=== PATIENT | female | born 1935 | race Caucasian/White ===

== ENCOUNTER → 2016-08-27 | Outpatient (CLI) | payer MEDICARE ==
[2016-08-27 09:45] LABS: CH 31.6; CHCM 32.3; HCT 42.3 % (34.0-46.0); HDW 2.19; HGB 13.6 gm/dL (11.4-16.0); MCH 31.6 pg (25.0-35.0); MCHC 32.2 g/dL (31.0-37.0); MCV 98.2 fL (80.0-100.0); Mean Platelet Volume 6.9; RDW 13.7 % (11.5-15.5); WBC 8.7 k/uL (3.8-10.6)
--- NOTE | 2016-08-27 10:07 | XR ---
EXAMINATION TYPE: XR chest 2V DATE OF EXAM: 08/27/2016 9:27 AM COMPARISON: 09/25/2015 TECHNIQUE: PA and lateral views submitted. HISTORY: Annual physical FINDINGS: The lungs are clear and there is no pneumothorax, pleural effusion, or focal pneumonia. Atheroscler otic change aorta. Arthropathy of the AC joints. Degenerative change of the spine. IMPRESSION: 1. No acute process.
[2016-08-27 10:39] LABS: Appearance,Urine Clear (Clear); Bilirubin,Urine Negative (Negative); Glucose,Urine (UA) Negative (Negative); Ketones,Urine Negative (Negative); Leukocyte Esterase,Urine Large (Negative); Mucus,Urine Rare /hpf; Nitrite,Urine Negative (Negative); PH, Urine 7.5 (5.0-8.0); Particle Count 3577; Protein,Urine Negative (Negative); RBC,Urine <1 /hpf (0-5); Specific Gravity,Urine 1.007 (1.001-1.035); Squamous Epithelial Cell,Urine 2 /hpf (0-4); Transitional Epi Cells,Urine 1 /hpf (0-1); UA Billing (MACRO vs. MICRO) MICRO; Urobilinogen,Urine <2.0 mg/dL (<2.0); WBC,Urine 4 /hpf (0-5)
[2016-08-27 12:00] LABS: ALT 34 U/L (9-52); AST 25 U/L (14-36); Alkaline Phosphatase 54 U/L (38-126); Anion Gap 8 mmol/L; Blood Urea Nitrogen 15 mg/dL (7-17); Calcium 9.9 mg/dL (8.4-10.2); Carbon Dioxide 28 mmol/L (22-30); Chloride 107 mmol/L (98-107); Cholesterol 170 mg/dL (<200); Glucose 93 mg/dL (74-99); HDL Cholesterol 81 mg/dL (40-60); Non-African American GFR(MDRD) >60 (>60 ml/min/1.73 sqM); Potassium 4.4 mmol/L (3.5-5.1); Sodium 143 mmol/L (137-145); Total Bilirubin 0.6 mg/dL (0.2-1.3); Total Protein 6.5 g/dL (6.3-8.2); Triglycerides 98 mg/dL (<150)
== END | disposition home or self-care (01) ==
LOC: LABWHC1 08:48
PROVIDERS: ATTEND Internal Medicine
DX: Z00.00 Encounter for general adult medical examination without abnormal findings (principal); C50.919 Malignant neoplasm of unspecified site of unspecified female breast; I11.9 Hypertensive heart disease without heart failure; K21.0 Gastro-esophageal reflux disease with esophagitis; N39.0 Urinary tract infection, site not specified; E78.2 Mixed hyperlipidemia
CPT/HCPCS: 36415; 71020; 80053; 80061; 81001; 82272; 84439; 84443; 85027

== ENCOUNTER → 2016-12-09 | Outpatient (CLI) | payer MEDICARE ==
--- NOTE | 2016-12-09 10:13 | MM ---
Reason for exam: additional evaluation requested from prior study. Last mammogram was performed 1 year ago. History: Patient is postmenopausal and has history of breast cancer at age 51. Family history of breast cancer in mother at age 70 and breast cancer in maternal grandmother. Benign stereotactic core biopsy of the right breast, October 31, 2001. Core biopsy of the right breast, 1987. Excisional biopsy of the left breast, 1987. Lumpectomy of the right breast. Radiation therapy of the right breast. Took estrogen for 2 years beginning at age 50. Physical Findings: Nurse did not find any significant physical abnormalities on exam. MG 3D Diag Mammo W/Cad JANNY Bilateral CC and MLO view(s) were taken. Prior study comparison: December 09, 2015, bilateral MG 3d diag mammo w/cad JANNY. November 27, 2014, bilateral MG diagnostic mammo w CAD JANNY. November 07, 2013, bilateral MG screening mammo w CAD. There are scattered fibroglandular densities. Stable post surgical and post therapy change in the right breast. Benign oil cyst and fat necrosis calcifications show slight gradual increase. These results were verbally communicated with the patient and result sheet given to the patient on 12/09/16. ASSESSMENT: Benign, BI-RAD 2 RECOMMENDATION: Routine screening mammogram of both breasts in 1 year.
== END | disposition home or self-care (01) ==
LOC: RADMAMWWP 09:01
PROVIDERS: ATTEND Internal Medicine
DX: Z85.3 Personal history of malignant neoplasm of breast (principal)
CPT/HCPCS: G0204; G0279

== ENCOUNTER → 2017-10-14 | Outpatient (CLI) | payer MEDICARE ==
[2017-10-14 08:49] LABS: HCT 41.2 % (34.0-46.0); HGB 13.3 gm/dL (11.4-16.0); MCH 31.1 pg (25.0-35.0); MCHC 32.2 g/dL (31.0-37.0); MCV 96.6 fL (80.0-100.0); Mean Platelet Volume 6.9; Platelet Count 210 k/uL (150-450); RBC 4.26 m/uL (3.80-5.40); WBC 9.1 k/uL (3.8-10.6)
[2017-10-14 08:51] LABS: Appearance,Urine Clear (Clear); Bilirubin,Urine Negative (Negative); Blood,Urine Negative (Negative); Color,Urine Light Yellow; Glucose,Urine (UA) Negative (Negative); Ketones,Urine Negative (Negative); Leukocyte Esterase,Urine Small (Negative); Mucus,Urine Rare /hpf; Nitrite,Urine Negative (Negative); PH, Urine 7.5 (5.0-8.0); Protein,Urine Negative (Negative); RBC,Urine <1 /hpf (0-5); Specific Gravity,Urine 1.009 (1.001-1.035); Squamous Epithelial Cell,Urine 1 /hpf (0-4); Urobilinogen,Urine <2.0 mg/dL (<2.0); WBC,Urine 3 /hpf (0-5)
[2017-10-14 09:00] LABS: ALT 31 U/L (9-52); AST 22 U/L (14-36); Albumin 3.7 g/dL (3.5-5.0); Alkaline Phosphatase 61 U/L (38-126); Anion Gap 7 mmol/L; Blood Urea Nitrogen 15 mg/dL (7-17); Calcium 9.6 mg/dL (8.4-10.2); Carbon Dioxide 27 mmol/L (22-30); Chloride 107 mmol/L (98-107); Cholesterol 177 mg/dL (<200); Glucose 93 mg/dL (74-99); HDL Cholesterol 74 mg/dL (40-60); LDL Cholesterol,Calculated 75 mg/dL (0-99); Potassium 4.8 mmol/L (3.5-5.1); Sodium 141 mmol/L (137-145); Total Bilirubin 0.5 mg/dL (0.2-1.3); Total Protein 6.1 g/dL (6.3-8.2); Triglycerides 138 mg/dL (<150)
--- NOTE | 2017-10-14 09:44 | XR ---
EXAMINATION TYPE: XR chest 2V DATE OF EXAM: 10/14/2017 COMPARISON: Prior chest 08/27/2016 HISTORY: Annual physical, I 11.9, E03.9, E78.2, K21.0, R 35.0 TECHNIQUE: Frontal and lateral views of the chest are obtained. FINDINGS: There is no focal air space opacity, pleural effusion, or pneumothorax seen. The cardiac silhouette size is within normal limits. The osseous structures are intact. There is a spinal curva ture. Prominent lung volume could be indicative of COPD. IMPRESSION: No acute cardiopulmonary process.
== END | disposition home or self-care (01) ==
LOC: LABWHC1 08:10
PROVIDERS: ATTEND Internal Medicine
DX: I11.9 Hypertensive heart disease without heart failure (principal); E03.9 Hypothyroidism, unspecified; E78.2 Mixed hyperlipidemia; K21.0 Gastro-esophageal reflux disease with esophagitis; R35.0 Frequency of micturition
CPT/HCPCS: 36415; 71046; 80053; 80061; 81001; 84439; 84443; 85027

== ENCOUNTER → 2018-04-11 | Outpatient (CLI) | payer MEDICARE ==
--- NOTE | 2018-04-12 10:32 | MM ---
Reason for exam: screening (asymptomatic). Last mammogram was performed 1 year and 4 months ago. History: Patient is postmenopausal and has history of breast cancer at age 51. Family history of breast cancer in mother at age 70 and breast cancer in maternal grandmother. Benign stereotactic core biopsy of the right breast, October 31, 2001. Core biopsy of the right breast, 1987. Excisional biopsy of the left breast, 1987. Lumpectomy of the right breast. Radiation therapy of the right breast. Took estrogen for 2 years beginning at age 50. Physical Findings: A clinical breast exam by your physician is recommended on an annual basis and results should be correlated with mammographic findings. MG 3D Screening Mammo W/Cad Bilateral CC and MLO view(s) were taken. Prior study comparison: December 09, 2016, bilateral MG 3d diag mammo w/cad JANNY. December 09, 2015, bilateral MG 3d diag mammo w/cad JANNY. The breast tissue is heterogeneously dense. This may lower the sensitivity of mammography. Finding #1: Stable architectural distortion in the upper outer quadrant, anterior position of the right breast. Finding #2: There are typically benign vascular, dystrophic, round calcifications in both breasts. There is no discrete abnormality. ASSESSMENT: Benign, BI-RAD 2 RECOMMENDATION: Routine screening mammogram of both breasts in 1 year.
== END ==
LOC: RADMAMWWP 16:31
PROVIDERS: ATTEND Obstetrics & Gynecology
DX: Z12.31 Encounter for screening mammogram for malignant neoplasm of breast (principal); Z85.3 Personal history of malignant neoplasm of breast; Z80.3 Family history of malignant neoplasm of breast
CPT/HCPCS: 77063; 77067

== ENCOUNTER → 2018-10-17 | Outpatient (CLI) | payer MEDICARE ==
[2018-10-17 09:20] LABS: HGB 13.3 gm/dL (11.4-16.0); MCH 30.9 pg (25.0-35.0); MCHC 32.5 g/dL (31.0-37.0); MCV 95.1 fL (80.0-100.0); Mean Platelet Volume 7.4; Platelet Count 252 k/uL (150-450); RBC 4.32 m/uL (3.80-5.40); WBC 10.3 k/uL (3.8-10.6)
[2018-10-17 09:25] LABS: Appearance,Urine Clear (Clear); Bilirubin,Urine Negative (Negative); Blood,Urine Negative (Negative); Color,Urine Light Yellow; Glucose,Urine (UA) Negative (Negative); Ketones,Urine Negative (Negative); Leukocyte Esterase,Urine Negative (Negative); Nitrite,Urine Negative (Negative); Protein,Urine Negative (Negative); Specific Gravity,Urine 1.004 (1.001-1.035); Urobilinogen,Urine <2.0 mg/dL (<2.0)
--- NOTE | 2018-10-17 09:44 | XR ---
EXAMINATION TYPE: XR chest 2V DATE OF EXAM: 10/17/2018 COMPARISON: Prior chest x-ray 10/14/2017 HISTORY: Wellness check, annual physical exam TECHNIQUE: Frontal and lateral views of the chest are obtained. FINDINGS: There is no focal air space opacity, pleural effusion, or pneumothorax seen. The cardiac silhouette size is within normal limits. Right hemidiaphragm remains elevated. Aorta is dense. Some p robable basilar scarring or subsegmental atelectatic changes are noted. The osseous structures are i ntact. IMPRESSION: Stable exam. Probable basilar scarring.
[2018-10-17 16:38] LABS: African American GFR (CKD) 98.4 (60.0-200.0); Albumin/Globulin Ratio 2.22 (1.60-3.17); Anion Gap 7.5 mmol/L (4.00-12.00); Calcium 9.6 mg/dL (8.7-10.3); Carbon Dioxide 25.5 mmol/L (21.6-31.8); Globulin 1.8 g/dL (1.6-3.3); LDL Cholesterol,Calculated 83.6 mg/dL (0.0-131.0); Potassium 4.3 mmol/L (3.5-5.5); Total Bilirubin 0.6 mg/dL (0.2-1.2); Total Protein 5.8 g/dL (6.2-8.2); VLDL Calculation 26.4 mg/dL (5.00-40.00)
[2018-10-17 16:46] LABS: T4, Free (Free Thyroxine) 1.4 ng/dL (0.80-1.80)
== END | disposition home or self-care (01) ==
LOC: LABWHC1 08:17
PROVIDERS: ATTEND Internal Medicine
DX: Z00.00 Encounter for general adult medical examination without abnormal findings (principal); I11.9 Hypertensive heart disease without heart failure; E78.2 Mixed hyperlipidemia; E03.9 Hypothyroidism, unspecified; K21.0 Gastro-esophageal reflux disease with esophagitis; R35.0 Frequency of micturition
CPT/HCPCS: 36415; 71046; 80053; 80061; 81003; 82272; 84439; 84443; 85027

== ENCOUNTER → 2020-10-16 | Outpatient (CLI) | payer MEDICARE ==
--- NOTE | 2020-10-18 10:44 | MM ---
Reason for exam: screening (asymptomatic). Last mammogram was performed 1 year and 6 months ago. History: Patient is postmenopausal and has history of breast cancer at age 51. Family history of breast cancer in mother at age 70 and breast cancer in maternal grandmother. Benign stereotactic core biopsy of the right breast, October 31, 2001. Core biopsy of the right breast, 1987. Excisional biopsy of the left breast, 1987. Lumpectomy of the right breast. Radiation therapy of the right breast. Took estrogen for 2 years beginning at age 50. Physical Findings: A clinical breast exam by your physician is recommended on an annual basis and results should be correlated with mammographic findings. MG 3D Screening Mammo W/Cad Bilateral CC and MLO view(s) were taken. Prior study comparison: April 14, 2019, bilateral MG 3d screening mammo w/cad. April 11, 2018, bilateral MG 3d screening mammo w/cad. There are scattered fibroglandular densities. No significant changes when compared with prior studies. ASSESSMENT: Benign, BI-RAD 2 RECOMMENDATION: Routine screening mammogram of both breasts in 1 year.
== END | disposition home or self-care (01) ==
LOC: RADMAMWWP 13:49
PROVIDERS: ATTEND Internal Medicine
DX: Z12.31 Encounter for screening mammogram for malignant neoplasm of breast (principal); Z78.0 Asymptomatic menopausal state; Z80.3 Family history of malignant neoplasm of breast; Z85.3 Personal history of malignant neoplasm of breast
CPT/HCPCS: 77063; 77067

== ENCOUNTER → 2021-10-17 | Outpatient (CLI) | payer MEDICARE ==
--- NOTE | 2021-10-20 11:39 | MM ---
Reason for Exam: Screening (asymptomatic). Last screening mammogram was performed 12 month(s) ago. Patient History: Menarche at age 13. First Full-Term at age 28. Postmenopausal. Breast cancer, age 51. Previous chest radiation therapy at age 51. Estrogen for 2 years from age 50 until age 52. Lumpectomy on the Right side. 1987, Core Biopsy on the Right side. 1987, Excisional Biopsy on the Left side. 10/31/2001, Benign Stereotactic Core Biopsy on the right side. Radiation Therapy, right. Maternal grandmother had breast cancer. Mother had breast cancer, age 70. Prior Study Comparison: 04/11/2018 Bilateral Screening Mammogram, [facility]. 04/14/2019 Bilateral Screening Mammogram, [facility]. 10/16/2020 Bilateral Screening Mammogram, [facility]. Tissue Density: The breast tissue is heterogeneously dense. This may lower the sensitivity of mammography. Findings: Analyzed By CAD. There is no suspicious group of microcalcifications or new suspicious mass in either breast. Stable benign calcifications seen bilaterally. Overall Assessment: Benign, BI-RAD 2 Management: Screening Mammogram of both breasts in 1 year. A clinical breast exam by your physician is recommended on an annual basis and results should be correlated with mammographic findings. Electronically signed and approved by: Charly Singh M.D. Radiologis
== END | disposition home or self-care (01) ==
LOC: RADMAMWWP 14:38
PROVIDERS: ATTEND Obstetrics & Gynecology
DX: Z12.31 Encounter for screening mammogram for malignant neoplasm of breast (principal); Z78.0 Asymptomatic menopausal state; Z80.3 Family history of malignant neoplasm of breast
CPT/HCPCS: 77063; 77067

== ENCOUNTER 2022-05-19 09:05 | Emergency (ER) | payer MEDICARE ==
[2022-05-19] MEDS ORDERED: SODIUM CHLORIDE 0.9% 1,000 ML IV STA (09:19)
[2022-05-19] MEDS ORDERED: ONDANSETRON 4 MG/2 ML VIAL IVP STA (09:19)
[2022-05-19 09:45] LABS: Basophils # (A) 0.1 k/uL (0-0.2); Basophils % (A) 1 %; Eosinophils # (A) 0.1 k/uL (0-0.7); Eosinophils % (A) 1 %; HCT 40.3 % (34.0-46.0); HGB 13.3 gm/dL (11.4-16.0); Lymphocytes # (A) 4.1 k/uL (1.0-4.8); Lymphocytes % (A) 34 %; MCH 31.4 pg (25.0-35.0); MCV 95.2 fL (80.0-100.0); Mean Platelet Volume 8.3; Monocytes # (A) 0.5 k/uL (0-1.0); Monocytes % (A) 4 %; Neutrophils % (A) 58 %; Platelet Count 236 k/uL (150-450); RBC 4.23 m/uL (3.80-5.40); RDW 13.5 % (11.5-15.5); WBC 12.1 k/uL (3.8-10.6)
--- NOTE | 2022-05-19 09:48 | ED ---
Nausea/Vomiting/Diarrhea HPI - General Chief complaint: Nausea/Vomiting/Diarrhea Stated complaint: poss dehydration Time Seen by Provider: 05/19/22 09:18 Source: patient, RN notes reviewed Mode of arrival: ambulatory Limitations: no limitations - History of Present Illness Initial comments: This is an 87-year-old female who presents to the emergency department for nausea and vomiting. She was given a prescription for Macrobid yesterday for a UTI. She took 2 doses of this, and subsequently started to develop nausea and diarrhea. Denies any associated vomiting. She is unsure if this is related to the antibiotic, as she has never taken it before. She does note that she is taking Keflex without any adverse reactions. She's had diarrhea 4-5 times at this point. Denies any blood in her stool. She did purchase Imodium, however she has not started taking it yet. Additionally, 2 weeks ago her vest baster started her on losartan, amiodarone, and Eliquis for atrial fibrillation. She has not had any palpitations or chest pain and she did not have any palpitations or chest pain when she was diagnosed. She called her vest baster regarding her symptoms, who advised that she was likely dehydrated and should go to the emergency department for IV fluids. She has no associated abdominal pain. Denies any fevers, chills, sore throat, cough, dyspnea, chest pain, palpitations, abdominal pain, vomiting, back pain, or headaches. MD complaint: nausea, diarrhea Associated Abdominal Pain: No - Related Data Home Medications Medication Instructions Recorded Confirmed Acetaminophen [Tylenol Arthritis] 650 mg PO BID 05/19/22 05/19/22 Amiodarone HCl [Pacerone] 200 mg PO BID 05/19/22 05/19/22 Apixaban [Eliquis] 5 mg PO BID 05/19/22 05/19/22 Atorvastatin [Lipitor] 20 mg PO DAILY 05/19/22 05/19/22 Calcium Carbonate [Calcium] 600 mg PO HS 05/19/22 05/19/22 Cholecalciferol [Vitamin D3 (25 50 mcg PO DAILY 05/19/22 05/19/22 Mcg = 1000 Iu)] Cyanocobalamin (Vitamin B-12) 1,000 mcg PO Q7D 05/19/22 05/19/22 [Vitamin B-12] Levothyroxine Sodium [Synthroid] 100 mcg PO DAILY 05/19/22 05/19/22 Losartan/Hydrochlorothiazide 1 tab PO DAILY 05/19/22 05/19/22 [Losartan-Hctz 50-12.5 mg Tab] Meloxicam [Mobic] 15 mg PO DAILY 05/19/22 05/19/22 Metoprolol Tartrate [Lopressor] 50 mg PO TID 05/19/22 05/19/22 Mirabegron [Myrbetriq] 25 mg PO DAILY 05/19/22 05/19/22 Multivit-Min/FA/Lycopen/Lutein 1 tab PO HS 05/19/22 05/19/22 [Centrum Silver Tablet] Nitrofurantoin Monohyd/M-Cryst 100 mg PO Q12HR 05/19/22 05/19/22 [Macrobid] Omeprazole [PriLOSEC] 20 mg PO HS 05/19/22 05/19/22 Vitamin B Complex 1 cap PO Q7D 05/19/22 05/19/22 Previous Rx's Medication Instructions Recorded Cephalexin [Keflex] 500 mg PO Q12HR 5 Days #10 cap 05/19/22 Allergies Allergy/AdvReac Type Severity Reaction Status Date / Time No Known Allergies Allergy Verified 05/19/22 11:12 Review of Systems ROS Statement: Those systems with pertinent positive or pertinent negative responses have been documented in the HPI. ROS Other: All systems not noted in ROS Statement are negative. Past Medical History Past Medical History: Atrial Fibrillation, Cancer Additional Past Medical History / Comment(s): breast CA 1988 History of Any Multi-Drug Resistant Organisms: ESBL Date of last positivie culture/infection: 05/04/19-ESBL E.coli MDRO Source:: Urine Past Surgical History: Orthopedic Surgery Additional Past Surgical History / Comment(s): lumpectomy. Past Psychological History: No Psychological Hx Reported Smoking Status: Never smoker Past Alcohol Use History: None Reported Past Drug Use History: None Reported General Exam Limitations: no limitations General appearance: alert, in no apparent distress Head exam: Present: atraumatic, normocephalic, normal inspection Respiratory exam: Present: normal lung sounds bilaterally. Absent: respiratory distress, wheezes, rales, rhonchi, stridor Cardiovascular Exam: Present: regular rate, irregular rhythm GI/Abdominal exam: Present: soft, normal bowel sounds. Absent: distended, tenderness, guarding, rebound, rigid Neurological exam: Present: alert, oriented X3, CN II-XII intact Psychiatric exam: Present: normal affect, normal mood Skin exam: Present: warm, dry, intact, normal color. Absent: rash Course Vital Signs 05/19/22 05/19/22 05/19/22 09:10 09:25 10:16 Temperature 98 F Pulse Rate 117 H 85 Respiratory 18 20 Rate Blood Pressure 120/70 136/87 116/90 O2 Sat by Pulse 96 106 H 95 Oximetry 05/19/22 12:00 Temperature Pulse Rate 101 H Respiratory 20 Rate Blood Pressure 115/69 O2 Sat by Pulse 96 Oximetry Medical Decision Making - Medical Decision Making This is an 87 year old female who presents to the emergency department for nausea and diarrhea. Was pt. sent in by a medical professional or institution? @ -No Did you speak to anyone other than the patient for history? @ -None Did you review nursing and triage notes? @ -Agree, accurate with regards to the patient's symptoms. Were old charts reviewed? @ -No Differential Diagnosis? @ Differential Diagnosis Nausea and diarrhea: -Dehydration, COVID, Influenza, gastroenteritis, nausea, foodborne illness, crohn's disease, ulcerative colitis, irritable bowel syndrome, this is not meant to be an all-inclusive list. EKG interpreted by me (3pts min.)? @ -Atrial fibrillation with RVR. Ventricular rate 107 bpm, QRS duration 98 ms, QTC 400 ms. What testing was considered but not performed? (CT, X-rays, U/S, labs)? Why? @ -None What meds were considered but not given? Why? @ -None Did you discuss the management of the patient with other professionals? @ -No Did you reconcile home meds? @ -No Was smoking cessation discussed for >3mins.? @ -No Was critical care preformed (if so, how long)? @ -No Were there social determinants of health that impacted care today? How? (Homelessness, low income, unemployed, alcoholism, drug addiction, transportation, low edu. Level, literacy, decrease access to med. care, correction, r ehab)? @ -No Was there de-escalation of care discussed even if they declined? (Discuss DNR or withdrawal of care, Hospice)? @ -No What co-morbidities impacted this encounter? (DM, HTN, Smoking, COPD, CAD, Cancer, CVA, Hep., AIDS, mental health diagnosis, sleep apnea, morbid obesity)? @ -Atrial fibrillation Was patient admitted / discharged? @ -Discharged. Lab work reveals mild leukocytosis and was otherwise nonactionable. Patient negative for Covid, influenza, and RSV. Patient is still positive for a urinary tract infection. She was given 1 g of ceftriaxone through her IV. She was given a liter bolus of IV fluids for rehydration and Zofran for nausea, which she states improved her symptoms. She was also given a dose of Imodium. States that she has Imodium at home and will continue to take it if needed. Dosing instructions for this reviewed. Rx for Keflex provided for the residual UTI. Advised she start this tomorrow due to her getting a dose of ceftriaxone today. Starter pack for Zofran provided as well. Advised she slowly advance her diet as tolerated and remain well-hydrated. Undiagnosed new problem with uncertain prognosis? @ -None Drug Therapy requiring intensive monitoring for toxicity (Heparin, Nitro, Insulin, Cardizem)? @ -None Were any procedures done? @ -None Diagnosis/symptom? @ -UTI Acute, or Chronic, or Acute on Chronic? @ -Acute Uncomplicated (without systemic symptoms) or Complicated (systemic symptoms)? @ -Uncomplicated Side effects of treatment? @ -None Exacerbation, Progression, or Severe Exacerbation] @ -Not applicable Poses a threat to life or bodily function? @ -No Diagnosis/symptom? @ -Nausea Acute, or Chronic, or Acute on Chronic? @ -Acute Uncomplicated (without systemic symptoms) or Complicated (systemic symptoms)? @ -Uncomplicated Side effects of treatment? @ -None Exacerbation, Progression, or Severe Exacerbation] @ -No Poses a threat to life or bodily function? @ -No Diagnosis/symptom? @ -Diarrhea Acute, or Chronic, or Acute on Chronic? @ -Acute Uncomplicated (without systemic symptoms) or Complicated (systemic symptoms)? @ -Uncomplicated Side effects of treatment? @ -None Exacerbation, Progression, or Severe Exacerbation] @ -No Poses a threat to life or bodily function? @ -If she becomes dehydrated it can become a severe issue, however this has seemed to improve at this point and she will plan on taking Imodium for treatment. Return precautions reviewed in depth, the patient is instructed to return to the emergency department with any new, worsening, or concerning symptoms. Patient verbalized understanding. This case was discussed in detail with the attending ED physician, Dr. Andrew. Presentation, findings, and treatment plan discussed in detail as well. - Lab Data Result diagrams: 05/19/22 09:22 05/19/22 09:22 Lab Results 05/19/22 05/19/22 05/19/22 Range/Units 09:22 09:22 09:22 WBC 12.1 H (3.8-10.6) k/uL RBC 4.23 (3.80-5.40) m/uL Hgb 13.3 (11.4-16.0) gm/dL Hct 40.3 (34.0-46.0) % MCV 95.2 (80.0-100.0) fL MCH 31.4 (25.0-35.0) pg MCHC 33.0 (31.0-37.0) g/dL RDW 13.5 (11.5-15.5) % Plt Count 236 (150-450) k/uL MPV 8.3 Neutrophils % 58 % Lymphocytes % 34 % Monocytes % 4 % Eosinophils % 1 % Basophils % 1 % Neutrophils # 7.0 (1.3-7.7) k/uL Lymphocytes # 4.1 (1.0-4.8) k/uL Monocytes # 0.5 (0-1.0) k/uL Eosinophils # 0.1 (0-0.7) k/uL Basophils # 0.1 (0-0.2) k/uL Sodium 133 L (137-145) mmol/L Potassium 4.4 (3.5-5.1) mmol/L Chloride 103 (98-107) mmol/L Carbon Dioxide 27 (22-30) mmol/L Anion Gap 3 mmol/L BUN 16 (7-17) mg/dL Creatinine 0.68 (0.52-1.04) mg/dL Est GFR (CKD-EPI)AfAm >90 (>60 ml/min/1.73 sqM) Est GFR (CKD-EPI)NonAf 79 (>60 ml/min/1.73 sqM) Glucose 139 H (74-99) mg/dL Calcium 9.0 (8.4-10.2) mg/dL Total Bilirubin 0.8 (0.2-1.3) mg/dL AST 67 H (14-36) U/L ALT 79 H (4-34) U/L Alkaline Phosphatase 98 (38-126) U/L Troponin I (0.000-0.034) ng/mL Total Protein 6.3 (6.3-8.2) g/dL Albumin 3.8 (3.5-5.0) g/dL Amylase 45 (30-110) U/L Lipase 86 (23-300) U/L Urine Color Yellow Urine Appearance Clear (Clear) Urine pH 6.5 (5.0-8.0) Ur Specific Taylor 1.010 (1.001-1.035) Urine Protein Negative (Negative) Urine Glucose (UA) Negative (Negative) Urine Ketones Negative (Negative) Urine Blood Negative (Negative) Urine Nitrite Negative (Negative) Urine Bilirubin Negative (Negative) Urine Urobilinogen <2.0 (<2.0) mg/dL Ur Leukocyte Esterase Moderate H (Negative) Urine RBC 3 (0-5) /hpf Urine WBC 78 H (0-5) /hpf Ur Squamous Epith Cells <1 (0-4) /hpf Hyaline Casts 6 H (0-2) /lpf Urine Mucus Rare H (None) /hpf Influenza Type A (PCR) (Not Detectd) Influenza Type B (PCR) (Not Detectd) RSV (PCR) (Not Detectd) SARS-CoV-2 (PCR) (Not Detectd) 05/19/22 05/19/22 Range/Units 09:22 09:22 WBC (3.8-10.6) k/uL RBC (3.80-5.40) m/uL Hgb (11.4-16.0) gm/dL Hct (34.0-46.0) % MCV (80.0-100.0) fL MCH (25.0-35.0) pg MCHC (31.0-37.0) g/dL RDW (11.5-15.5) % Plt Count (150-450) k/uL MPV Neutrophils % % Lymphocytes % % Monocytes % % Eosinophils % % Basophils % % Neutrophils # (1.3-7.7) k/uL Lymphocytes # (1.0-4.8) k/uL Monocytes # (0-1.0) k/uL Eosinophils # (0-0.7) k/uL Basophils # (0-0.2) k/uL Sodium (137-145) mmol/L Potassium (3.5-5.1) mmol/L Chloride (98-107) mmol/L Carbon Dioxide (22-30) mmol/L Anion Gap mmol/L BUN (7-17) mg/dL Creatinine (0.52-1.04) mg/dL Est GFR (CKD-EPI)AfAm (>60 ml/min/1.73 sqM) Est GFR (CKD-EPI)NonAf (>60 ml/min/1.73 sqM) Glucose (74-99) mg/dL Calcium (8.4-10.2) mg/dL Total Bilirubin (0.2-1.3) mg/dL AST (14-36) U/L ALT (4-34) U/L Alkaline Phosphatase (38-126) U/L Troponin I <0.012 (0.000-0.034) ng/mL Total Protein (6.3-8.2) g/dL Albumin (3.5-5.0) g/dL Amylase (30-110) U/L Lipase (23-300) U/L Urine Color Urine Appearance (Clear) Urine pH (5.0-8.0) Ur Specific Taylor (1.001-1.035) Urine Protein (Negative) Urine Glucose (UA) (Negative) Urine Ketones (Negative) Urine Blood (Negative) Urine Nitrite (Negative) Urine Bilirubin (Negative) Urine Urobilinogen (<2.0) mg/dL Ur Leukocyte Esterase (Negative) Urine RBC (0-5) /hpf Urine WBC (0-5) /hpf Ur Squamous Epith Cells (0-4) /hpf Hyaline Casts (0-2) /lpf Urine Mucus (None) /hpf Influenza Type A (PCR) Not Detected (Not Detectd) Influenza Type B (PCR) Not Detected (Not Detectd) RSV (PCR) Not Detected (Not Detectd) SARS-CoV-2 (PCR) Not Detected (Not Detectd) Disposition Clinical Impression: Dehydration, UTI (urinary tract infection), Nausea and vomiting Disposition: HOME SELF-CARE Instructions (If sedation given, give patient instructions): Urinary Tract Infection in Women (ED), Acute Nausea and Vomiting (ED), Acute Diarrhea (ED) Additional Instructions: Return to the emergency department with any new, worsening, or concerning sympt oms. Take the Keflex as prescribed for 5 days, with your first dose starting tomorrow. You can take the Zofran up to every 8 hours as needed for nausea and vomiting. Make sure that you remain well-hydrated and slowly advance your diet as tolerated. You can also take the Imodium that you have at home for any additional diarrhea. Follow up with your primary care provider in 1-2 days. Prescriptions: Cephalexin [Keflex] 500 mg PO Q12HR 5 Days #10 cap Is patient prescribed a controlled substance at d/c from ED?: No Referrals: Stan Rhoades MD [Primary Care Provider] - 1-2 days
[2022-05-19 09:57] LABS: ALT 79 U/L (4-34); AST 67 U/L (14-36); African American GFR (CKD) >90 (>60 ml/min/1.73 sqM); Albumin 3.8 g/dL (3.5-5.0); Alkaline Phosphatase 98 U/L (38-126); Amylase 45 U/L (30-110); Anion Gap 3 mmol/L; Blood Urea Nitrogen 16 mg/dL (7-17); Carbon Dioxide 27 mmol/L (22-30); Chloride 103 mmol/L (98-107); Glucose 139 mg/dL (74-99); Lipase 86 U/L (23-300); Non-African American GFR(CKD) 79 (>60 ml/min/1.73 sqM); Potassium 4.4 mmol/L (3.5-5.1); Sodium 133 mmol/L (137-145); Total Bilirubin 0.8 mg/dL (0.2-1.3); Total Protein 6.3 g/dL (6.3-8.2)
[2022-05-19 10:43] VITALS: RESP 20
[2022-05-19] MEDS ORDERED: LOPERAMIDE 2 MG CAP PO STA (11:10)
[2022-05-19 11:53] LABS: Appearance,Urine Clear (Clear); Bilirubin,Urine Negative (Negative); Blood,Urine Negative (Negative); Color,Urine Yellow; Glucose,Urine (UA) Negative (Negative); Hyaline Casts,Urine 6 /lpf (0-2); Ketones,Urine Negative (Negative); Leukocyte Esterase,Urine Moderate (Negative); Mucus,Urine Rare /hpf; Nitrite,Urine Negative (Negative); PH, Urine 6.5 (5.0-8.0); Protein,Urine Negative (Negative); RBC,Urine 3 /hpf (0-5); Squamous Epithelial Cell,Urine <1 /hpf (0-4); Urobilinogen,Urine <2.0 mg/dL (<2.0); WBC,Urine 78 /hpf (0-5)
[2022-05-19] MEDS ORDERED: cefTRIAXone IN SWFI 1,000 MG/10 ML SYRINGE IVP STA (12:11)
[2022-05-19] MEDS ORDERED: ONDANSETRON 4 MG ODT STARTER PACK 2 TAB BTL PO STA (12:13)
[2022-05-19 12:32] VITALS: BP 121/66; PULSE 93; TEMP 97.6
== END 2022-05-19 12:31 | disposition home or self-care (01) ==
LOC: EC 09:05
DX: E86.0 Dehydration (principal); R11.2 Nausea with vomiting, unspecified; N39.0 Urinary tract infection, site not specified; I48.91 Unspecified atrial fibrillation; Z20.822 Contact with and (suspected) exposure to COVID-19; Z79.01 Long term (current) use of anticoagulants
CPT/HCPCS: 99284; 96374; 96375; 96361; 36415; 93005; 80053; 82150; 83690; 84484; 85025; 81001; 87086; 87636; J2405; J0696; S0119

== ENCOUNTER → 2022-05-29 | Outpatient (CLI) | payer MEDICARE ==
[2022-05-29 23:03] LABS: HCT 43.4 % (37.2-46.3); HGB 13.3 g/dL (12.0-15.0); MCH 30.9 pg (27.0-32.0); MCHC 30.6 g/dL (32.0-37.0); MCV 100.9 fL (80.0-97.0); NRBC Per 100 WBC 0 /100 WBCS (0.0-0.0); Platelet Count 248 X 10*3/uL (140-440); RDW 14.6 % (11.5-14.5); WBC 12.83 X 10*3/uL (4.50-10.00)
[2022-05-29 23:15] LABS: African American GFR (CKD) 64.3 (60.0-200.0); Anion Gap 14.5 mmol/L (10.00-18.00); Blood Urea Nitrogen 14.4 mg/dL (9.0-27.0); Carbon Dioxide 24.4 mmol/L (20.0-27.5); Non-African American GFR(CKD) 55.5 (60.0-200.0); Potassium 4.2 mmol/L (3.5-5.5)
== END | disposition home or self-care (01) ==
LOC: LABPAT 14:13
PROVIDERS: ATTEND Internal Medicine Interventional Cardiology
DX: Z01.812 Encounter for preprocedural laboratory examination (principal); I48.91 Unspecified atrial fibrillation
CPT/HCPCS: 80051; 82565; 84520; 85027

== ENCOUNTER 2022-09-16 10:03 | Day surgery (SDC) | payer MEDICARE ==
[~2022-09-16 10:03] MED LIST: LACTATED RINGERS 1,000 ML IV SCH; LIDOCAINE 1% (10MG/ML) FOR IV START INTRADERMA PRN
[2022-09-16] MEDS ORDERED: LACTATED RINGERS 1,000 ML IV ONE (10:25)
[2022-09-16 10:26] VITALS: TEMP 98
[2022-09-16] MEDS ORDERED: PROPOFOL 10 MG/ML 20 ML VIAL IV ONE (11:23)
--- NOTE | 2022-09-16 11:39 | P.PCN ---
Date of Procedure: 09/16/22 Procedure(s) Performed: BRIEF HISTORY: Patient is a 87-year-old pleasant white female scheduled for an elective colonoscopy as a part of evaluation of change in bowel habits for the last 2 months duration. She is been having alternating diarrhea and constipation. During the episodes of diarrhea she has 5-6 loose watery bowel movements daily. Denies any rectal bleeding. PROCEDURE PERFORMED: Colonoscopy with random biopsy. PREOPERATIVE DIAGNOSIS: Change in bowel habits for the last 2 months duration. IV sedation per Anesthesia. PROCEDURE: After informed consent was obtained, the patient, was brought into the endoscopy unit. IV sedation was administered by Anesthesia under continuous monitoring. Digital rectal examination was normal. Initially the Olympus CF-160 flexible video colonoscope was then inserted in the rectum, gradually advanced into the sigmoid: Further advancement was not possible. Scope was removed and a pediatric colonoscopy was then introduced into the rectum and gradually advanced into the cecum without any difficulty. Careful examination was performed as the scope was gradually being withdrawn. Ileocecal valve and the appendiceal orifice were visualized and appeared normal. Prep was excellent. Mucosa of the cecum, ascending colon, transverse colon, descending colon, sigmoid colon, and rectum appeared normal. Retroflexion was performed in the rectum and no lesions were seen. Biopsies were done from ascending and descending colon to rule out microscopic/collagenous colitis Moderate left-sided diverticulosis The patient tolerated the procedure well. IMPRESSION: Normal-appearing colon from rectum to cecum with no evidence of active colitis or colorectal neoplasia . Moderate left-sided diverticulosis. RECOMMENDATIONS: Findings of this examination were discussed with the patient as well as a family.. She was advised to follow with the biopsy results. In the meantime she will use [id number] Imodium as needed and continue with fiber supplements.
[2022-09-16 11:57] VITALS: RESP 16
[2022-09-16 12:16] VITALS: BP 153/54; PULSE 79
== END 2022-09-16 12:39 | disposition home or self-care (01) ==
LOC: ORWHC2ENDO 10:03
PROVIDERS: ATTEND Internal Medicine Gastroenterology
DX: K57.30 Diverticulosis of large intestine without perforation or abscess without bleeding (principal); I10 Essential (primary) hypertension; E78.5 Hyperlipidemia, unspecified; I48.91 Unspecified atrial fibrillation; E03.9 Hypothyroidism, unspecified; K21.9 Gastro-esophageal reflux disease without esophagitis; Z79.899 Other long term (current) drug therapy; Z79.890 Hormone replacement therapy
CPT/HCPCS: 45380; J2704; 88305

== ENCOUNTER → 2022-09-19 | Outpatient (CLI) | payer MEDICARE ==
[2022-09-20 10:37] LABS: African American GFR (CKD) 75.5 (60.0-200.0); Anion Gap 10.5 mmol/L (10.00-18.00); BUN/Creat Ratio 17.28 Ratio (12.00-20.00); Blood Urea Nitrogen 14.1 mg/dL (9.0-27.0); Calcium 9.8 mg/dL (8.7-10.3); Carbon Dioxide 29.5 mmol/L (20.0-27.5); Non-African American GFR(CKD) 65.2 (60.0-200.0); Potassium 4.4 mmol/L (3.5-5.5)
== END | disposition home or self-care (01) ==
LOC: LABWHC1 11:58
PROVIDERS: ATTEND Nurse Practitioner
DX: I10 Essential (primary) hypertension (principal); I48.91 Unspecified atrial fibrillation
CPT/HCPCS: 36415; 80048

== ENCOUNTER → 2022-10-19 | Outpatient (CLI) | payer MEDICARE ==
--- NOTE | 2022-10-19 13:52 | MM ---
Reason for Exam: Screening (asymptomatic). Last screening mammogram was performed 12 month(s) ago. Patient History: Menarche at age 13. First Full-Term at age 28. Postmenopausal. Breast cancer, age 51. Previous chest radiation therapy at age 51. Estrogen for 2 years from age 50 until age 52. Lumpectomy on the Right side. 1987, Core Biopsy on the Right side. 1987, Excisional Biopsy on the Left side. 10/31/2001, Benign Stereotactic Core Biopsy on the right side. Radiation Therapy, right. Maternal grandmother had breast cancer. Mother had breast cancer, age 70. Prior Study Comparison: 04/14/2019 Bilateral Screening Mammogram, [facility]. 10/16/2020 Bilateral Screening Mammogram, [facility]. 10/17/2021 Bilateral MG 3D screening mammo w/cad, [facility]. Tissue Density: The breast tissue is heterogeneously dense. This may lower the sensitivity of mammography. Findings: Analyzed By CAD. Benign-appearing bilateral calcifications. There is no suspicious group of microcalcifications or new suspicious mass in either breast. Overall Assessment: Benign, BI-RAD 2 Management: Screening Mammogram of both breasts in [address] [facility] will attempt to contact patient to return for supplemental views and ultrasound if indicated. Patient should continue monthly self-breast exams. A clinical breast exam by your physician is recommended on an annual basis. This exam should not preclude additional follow-up of suspicious palpable abnormalities. Note on Magalys scores and lifetime risk: 1. A Magalys score greater than 3% is considered moderate risk. If this is the case, consider specialist referral to assess eligibility for a risk reducing agent. 2. If overall lifetime risk for the development of breast cancer is 20% or higher, the patient may qualify for future screening with alternating mammogram and breast MRI. Electronically signed and approved by: Alfa Haney DO
== END | disposition home or self-care (01) ==
LOC: RADMAMWWP 13:20
PROVIDERS: ATTEND Obstetrics & Gynecology
DX: Z12.31 Encounter for screening mammogram for malignant neoplasm of breast (principal); Z78.0 Asymptomatic menopausal state; Z80.3 Family history of malignant neoplasm of breast
CPT/HCPCS: 77063; 77067

== ENCOUNTER 2023-11-05 16:18 | Inpatient (IN) | payer MEDICARE ==
--- NOTE | 2023-11-05 17:00 | ED ---
Abdominal Pain HPI - General Chief Complaint: Abdominal Pain Stated Complaint: Constipation Time Seen by Provider: 11/05/23 16:58 Source: patient, RN notes reviewed Mode of arrival: wheelchair Limitations: no limitations - History of Present Illness Initial Comments: 88-year-old female presented to the ER with a chief complaint of constipation. Past medical history significant of IBS, thyroid disorder, hypertension and A- fib currently taking Eliquis. patient reports for the past 11 days she has been unable to have a bowel movement and has been extremely constipated. She is reporting intense abdominal pain and distention. She denies any vomiting but does report recent nausea. She states yesterday she was only able to eat half a sandwich if she has no appetite and feels like she is completely full. She does report frequent belching and flatulence. She denies any history of bowel obstructions or resections. Denies any fevers or chills. She has tried [id number] prune juice and milk of magnesia for the past 2 days without relief. She states she has been taking tramadol for her chronic sciatica and was recently switched to [place] approximately 3 days ago. Patient denies any chest pain, shortness of breath, urinary complaints or peripheral edema. - Related Data Home Medications Medication Instructions Recorded Confirmed Amiodarone HCl [Pacerone] 200 mg PO DAILY 05/19/22 11/05/23 Apixaban [Eliquis] 5 mg PO BID 05/19/22 11/05/23 Atorvastatin [Lipitor] 20 mg PO DAILY 05/19/22 11/05/23 Calcium Carbonate [Calcium] 600 mg PO HS 05/19/22 11/05/23 Cholecalciferol [Vitamin D3 (25 25 mcg PO HS 05/19/22 11/05/23 Mcg = 1000 Iu)] Cyanocobalamin (Vitamin B-12) 1,000 mcg PO Q7D 05/19/22 11/05/23 [Vitamin B-12] Levothyroxine Sodium [Synthroid] 100 mcg PO DAILY 05/19/22 11/05/23 Losartan/Hydrochlorothiazide 1 tab PO DAILY 05/19/22 11/05/23 [Losartan-Hctz 50-12.5 mg Tab] Multivit-Min/FA/Lycopen/Lutein 1 tab PO HS 05/19/22 11/05/23 [Centrum Silver Tablet] Omeprazole [PriLOSEC] 20 mg PO DAILY 05/19/22 11/05/23 Metoprolol Tartrate 25 mg PO BID 09/14/22 11/05/23 Acetaminophen Tab [Tylenol Tab] 1,000 mg PO BID 11/05/23 11/05/23 HYDROcodone/APAP 5-325MG [[place] 1 tab PO BID PRN 11/05/23 11/05/23 5-325] Magnesium Hydroxide [Milk of 2,400 mg PO DAILY PRN 11/05/23 11/05/23 Magnesia] Mirabegron [Myrbetriq] 50 mg PO DAILY 11/05/23 11/05/23 Super B Complex 1 tab PO Q7D 11/05/23 11/05/23 traMADol HCL 50 mg PO TID PRN 11/05/23 11/05/23 Allergies Allergy/AdvReac Type Severity Reaction Status Date / Time No Known Allergies Allergy Verified 11/05/23 18:15 Review of Systems ROS Statement: Those systems with pertinent positive or pertinent negative responses have been documented in the HPI. ROS Other: All systems not noted in ROS Statement are negative. Past Medical History Past Medical History: Atrial Fibrillation, Cancer, Hyperlipidemia, Hypertension Additional Past Medical History / Comment(s): breast CA 1988, chroic back pain History of Any Multi-Drug Resistant Organisms: ESBL Date of last positivie culture/infection: 05/04/19-ESBL E.coli MDRO Source:: Urine Past Surgical History: Orthopedic Surgery Additional Past Surgical History / Comment(s): lumpectomy. BILAT KNEE REPL. BILAT CATARACT REM Past Anesthesia/Blood Transfusion Reactions: No Reported Reaction Past Psychological History: No Psychological Hx Reported Smoking Status: Never smoker Past Alcohol Use History: Daily Past Drug Use History: None Reported General Exam Limitations: no limitations General appearance: alert, in no apparent distress Respiratory exam: Present: normal lung sounds bilaterally. Absent: respiratory distress, wheezes, rales, rhonchi, stridor Cardiovascular Exam: Present: regular rate, normal rhythm, normal heart sounds. Absent: systolic murmur, diastolic murmur, rubs, gallop, clicks GI/Abdominal exam: Present: distended, tenderness (Generalized), hyperactive bowel sounds Skin exam: Present: warm, dry, intact, normal color. Absent: rash Course Vital Signs 11/05/23 11/05/23 16:39 18:44 Temperature 98.5 F 97.9 F Pulse Rate 64 76 Respiratory 16 18 Rate Blood Pressure 156/74 123/83 O2 Sat by Pulse 95 97 Oximetry - Reevaluation(s) Reevaluation #1: 11/05/23 20:14 Case discussed with on-call general surgeon, Dr. Cedeno, who advises on admi ssion, IV antibiotics and n.p.o. Reevaluation #2: 11/05/23 20:15 Case discussed with [facility] physician, Dr. Coles, accepts medical admission. Medical Decision Making - Medical Decision Making Was pt. sent in by a medical professional or institution (, PA, LEGAL EXAMINER, urgent care, hospital, or residential...) When possible be specific @ -No Did you speak to anyone other than the patient for history (EMS, parent, family, police, friend...)? What history was obtained from this source @ -No Did you review nursing and triage notes (agree or disagree)? Why? @ -I reviewed and agree with nursing and triage notes Were old charts reviewed (outside hosp., previous admission, EMS record, old EKG, old radiological studies, urgent care reports/EKG's, residential records)? Report findings @ -No old charts were reviewed Differential Diagnosis (chest pain, altered mental status, abdominal pain women, abdominal pain men, vaginal bleeding, weakness, fever, dyspnea, syncope, headache, dizziness, GI bleed, back pain, seizure, CVA, palpatations, mental health, musculoskeletal)? @ -Differential Abdominal Pain Women: Appendicitis, Cholecystitis, diverticulosis, ischemic bowel, pancreatitis, hepatitis, UTI, gastroenteritis, AAA, incarcerated hernia, bowel obstruction, constipation, inflammatory bowel, hepatitis, peptic ulcer disease, splenic infarction, perforated viscus, vulvitis, ovarian torsion, PID, kidney stone, placenta abruption, this is not meant to be an all-inclusive list EKG interpreted by me (3pts min.). @ -None X-rays interpreted by me (1pt min.). @ -KUB remarkable for dilated gaseous loops of bowel present in the left upper quadrant. CT interpreted by me (1pt min.). @ -CT abdomen pelvis significant for a partial large bowel obstruction of the sigmoid colon secondary to colitis versus mass with upstream dilation of large and small bowel containing fluid and gas. There is multiple indeterminate enhancing lesions within the liver as well as a sclerotic lesion within the left proximal femur. Abnormal soft tissue within the mesentery near the cecum possibly representing stricture. U/S interpreted by me (1pt. min.). @ -None done What testing was considered but not performed or refused? (CT, X-rays, U/S, labs)? Why? @ -None What meds were considered but not given or refused? Why? @ -None Did you discuss the management of the patient with other professionals (professionals i.e. DrNiko, PA, LEGAL EXAMINER, lab, RT, psych nurse, clinical social work aide, wastewater project engineer, teacher, chief information security officer, classification case manager)? Give summary @ -Yes, case discussed with on-call general surgeon, Dr. Cedeno, who would like patient admitted to medicine. She advised on n.p.o. and IV antibiotics for colitis. I also spoke with sound physician, Dr. Coles, who accepts medical admission. Was smoking cessation discussed for >3mins.? @ -No Was critical care preformed (if so, how long)? @ -No Were there social determinants of health that impacted care today? How? (Homelessness, low income, unemployed, alcoholism, drug addiction, tra nsportation, low edu. Level, literacy, decrease access to med. care, retirement, rehab)? @ -No Was there de-escalation of care discussed even if they declined (Discuss DNR or withdrawal of care, Hospice)? DNR status @ -No What co-morbidities impacted this encounter? (DM, HTN, Smoking, COPD, CAD, Cancer, CVA, ARF, Chemo, Hep., AIDS, mental health diagnosis, sleep apnea, morbid obesity)? @ -IBS, atrial fibrillation on Eliquis, hypertension, hyperlipidemia, thyroid disorder Was patient admitted / discharged? Hospital course, mention meds given and route, prescriptions, significant lab abnormalities, going to OR and other pertinent info. @ -Admitted. 88 year old female presenting to the ER with a chief complaint of abdominal pain and distention x11 days. History and physical exam completed. Vitals stable. Patient in no signs of acute distress and nontoxic-appearing. Exam remarkable for mildly hyperactive bowel sounds with exquisite tenderness throughout. No rebound or guarding. Abdomen does appear distended on exam. Laboratory studies obtained remarkable for white blood cell count 14.1 with a left shift. KUB initially performed significant for dilated gaseous loops of b owel present in the left upper quadrant. CT obtained at that time for further evaluation. CT abdomen pelvis remarkable for partial large bowel obstruction of the sigmoid colon secondary to colitis versus mass with upstream dilation of the large and small bowel containing fluid and gas. There is multiple indeterminate enhancing lesions within the liver as well as a sclerotic lesion of the left proximal femur. Abnormal soft tissue within the mesentery near the cecum possibly representing stricture. Patient received by mouth Tylenol for pain control in the ER, with improvement. Admission considered due to bowel obstruction. Case discussed with on-call general surgeon, Dr. Cedeno who ad vises on n.p.o., IV antibiotics for possible colitis and admission to medicine. Patient will be started on Flagyl and levofloxacin. Blood cultures obtained. Patient NPO. Case also was discussed with [facility] physician, Dr. Coles, who accepts medical admission. Results discussed with patient including possibility of malignancy, all questions answered. Patient agreeable for admission at this time. Patient admitted in stable condition for further treatment. Case discussed with ED attending, Dr. Gaspar. Undiagnosed new problem with uncertain prognosis? @ -No Drug Therapy requiring intensive monitoring for toxicity (Heparin, Nitro, Insulin, Cardizem)? @ -No Were any procedures done? @ -No Diagnosis/symptom? @ -Partial bowel obstruction/leukocytosis Acute, or Chronic, or Acute on Chronic? @ -Acute Uncomplicated (without systemic symptoms) or Complicated (systemic symptoms)? @ -Complicated Side effects of treatment? @ -No Exacerbation, Progression, or Severe Exacerbation? @ -No Poses a threat to life or bodily function? How? (Chest pain, [place], [place], pneumonia, PE, COPD, DKA, ARF, appy, cholecystitis, CVA, Diverticulitis, Homicidal, Suicidal, threat to staff... and all critical care pts) @ -Yes, bowel obstruction can lead to bowel perforation which can be life-threa tening. Also malignancy cannot be ruled out. - Lab Data Result diagrams: 11/05/23 18:01 11/05/23 18:01 Lab Results 11/05/23 11/05/23 11/05/23 Range/Units 18:01 18: 18: WBC 14.1 H (3.8-10.6) k/uL RBC 3.87 (3.80-5.40) m/uL Hgb 12.7 (11.4-16.0) gm/dL Hct 39.3 (34.0-46.0) % MCV 101.6 H (80.0-100.0) fL MCH 32.7 (25.0-35.0) pg MCHC 32.2 (31.0-37.0) g/dL RDW 13.3 (11.5-15.5) % Plt Count 231 (150-450) k/uL MPV 8.0 Neutrophils % 79 % Lymphocytes % 15 % Monocytes % 4 % Eosinophils % 0 % Basophils % 0 % Neutrophils # 11.0 H (1.3-7.7) k/uL Lymphocytes # 2.0 (1.0-4.8) k/uL Monocytes # 0.6 (0-1.0) k/uL Eosinophils # 0.1 (0-0.7) k/uL Basophils # 0.0 (0-0.2) k/uL Macrocytosis Slight Sodium 133 L (137-145) mmol/L Potassium 4.2 (3.5-5.1) mmol/L Chloride 102 (98-107) mmol/L Carbon Dioxide 27 (22-30) mmol/L Anion Gap 4 mmol/L BUN 16 (7-17) mg/dL Creatinine 0.56 (0.52-1.04) mg/dL Est GFR (CKD-EPI)AfAm >90 (>60 ml/min/1.73 sqM) Est GFR (CKD-EPI)NonAf 84 (>60 ml/min/1.73 sqM) Glucose 120 H (74-99) mg/dL Plasma Lactic Acid Gagan 1.1 (0.7-2.0) mmol/L Calcium 9.0 (8.4-10.2) mg/dL Total Bilirubin 1.2 (0.2-1.3) mg/dL AST 42 H (14-36) U/L ALT 19 (4-34) U/L Alkaline Phosphatase 60 (38-126) U/L Total Protein 6.2 L (6.3-8.2) g/dL Albumin 3.7 (3.5-5.0) g/dL Amylase 33 (30-110) U/L Lipase 26 (23-300) U/L - Radiology Data Radiology results: report reviewed, image reviewed Disposition Clinical Impression: Partial bowel obstruction, Leukocytosis Disposition: ADMITTED IP TO THIS [facility] Condition: Stable Referrals: Blake Todd DO [REFERRING] - 1-2 days Time of Disposition: 20:15
[2023-11-05 18:23] LABS: Basophils % (A) 0 %; Eosinophils # (A) 0.1 k/uL (0-0.7); Eosinophils % (A) 0 %; HCT 39.3 % (34.0-46.0); HGB 12.7 gm/dL (11.4-16.0); Lymphocytes % (A) 15 %; MCH 32.7 pg (25.0-35.0); MCHC 32.2 g/dL (31.0-37.0); MCV 101.6 fL (80.0-100.0); Macrocytosis Slight; Monocytes # (A) 0.6 k/uL (0-1.0); Monocytes % (A) 4 %; Neutrophils % (A) 79 %; Platelet Count 231 k/uL (150-450); RBC 3.87 m/uL (3.80-5.40); RDW 13.3 % (11.5-15.5); WBC 14.1 k/uL (3.8-10.6)
[2023-11-05 18:35] LABS: ALT 19 U/L (4-34); African American GFR (CKD) >90 (>60 ml/min/1.73 sqM); Amylase 33 U/L (30-110); Anion Gap 4 mmol/L; Blood Urea Nitrogen 16 mg/dL (7-17); Carbon Dioxide 27 mmol/L (22-30); Chloride 102 mmol/L (98-107); Glucose 120 mg/dL (74-99); Lipase 26 U/L (23-300); Non-African American GFR(CKD) 84 (>60 ml/min/1.73 sqM); Sodium 133 mmol/L (137-145); Total Bilirubin 1.2 mg/dL (0.2-1.3)
--- NOTE | 2023-11-05 18:38 | XR ---
EXAMINATION TYPE: XR KUB DATE OF EXAM: 11/05/2023 5:47 PM CLINICAL INDICATION:Female, 88 years old with history of constipation; COMPARISON: None. TECHNIQUE: One radiographic view of the abdomen was obtained. FINDINGS: The bowel gas pattern is nonspecific without dilated loops of small or large bowel. . Fecal material and gas are demonstrated throughout the colon and rectum. There is no evidence for organomegaly or pneumoperitoneum. The osseous structures are intact. No ab normal calcifications are present. Scoliosis changes throughout the spine. IMPRESSION: Dilated gaseous loops of bowel present in the left upper quadrant attention on subsequent ordered CT.
[2023-11-05 18:43] LABS: AST 42 U/L (14-36); Albumin 3.7 g/dL (3.5-5.0); Alkaline Phosphatase 60 U/L (38-126); Potassium 4.2 mmol/L (3.5-5.1); Total Protein 6.2 g/dL (6.3-8.2)
[2023-11-05] MEDS: ACETAMINOPHEN TAB 325 MG TAB PO STA (18:46)
--- NOTE | 2023-11-05 19:40 | CT ---
EXAMINATION TYPE: CT abdomen pelvis w con CT DLP: 773.6 mGycm, Automated exposure control for dose reduction was used. DATE OF EXAM: 11/05/2023 7:08 PM COMPARISON: CT abdomen pelvis most recent from 11/21/2015 CLINICAL INDICATION:Female, 88 years old with history of abd pain; abd pain/ constipated TECHNIQUE: Axial CT abdomen pelvis w con;Sagittal and coronal reformats were created on a separate w orkstation. Contrast used:100 mL of Isovue 300 with IV Contrast, (none if empty) Oral contrast used: without Oral Contrast (none if empty) FINDINGS: LOWER CHEST: Unremarkable ABDOMEN LIVER: Multiple faintly enhancing lesions are seen within the liver, examples include series 201 imag e 16 measuring 16 mm and image 23 measuring 31 mm. GALLBLADDER AND BILE DUCTS: Unremarkable. PANCREAS: Unremarkable. SPLEEN: Unremarkable. ADRENAL GLANDS: Unremarkable. KIDNEYS AND URETERS: No evidence of hydronephrosis or renal calculus. The ureters are unremarkable. PELVIS BLADDER: Unremarkable REPRODUCTIVE: Unremarkable. ABDOMEN & PELVIS STOMACH AND BOWEL: Cervical fracture wall thickening of the sigmoid colone with upstream back above f luid and gaseous dilation extending into the small bowel. Wall thickening up to 10 mm. Right lower qu adrant hypodensity calcifications with tethering of bowel around this area possibly resulting in some degree of obstruction series 201 image 53. PERITONEUM/RETROPERITONEUM: No evidence of pneumoperitoneum or free fluid. VASCULATURE: No evidence of aortic aneurysm. MUSCULOSKELETAL: No acute osseous abnormalities, severe degeneration changes throughout the spine. Sc lerotic lesion within the proximal left femur measuring up to 35 mm. LYMPH NODES: No gross evidence for lymphadenopathy. SOFT TISSUE/ABDOMINAL WALL: Unremarkable IMPRESSION: 1. Partial large bowel obstruction of the sigmoid colon secondary to colitis versus mass with upstre am dilation of large and small bowel containing fluid and gas. 2. Multiple indeterminate enhancing lesions within the liver as well as sclerotic lesion within the left proximal femur concerning for malignancy. MRI liver mass protocol recommended. Further workup re commended. 3. Abnormal soft tissue within the mesentery near the cecum possibly representing stricture. Complet e evaluation with oral contrast CT recommended. This has gotten bigger since 2016 possibly related to #2
[2023-11-05] MEDS ORDERED: NALOXONE 0.4 MG/ML 1 ML VIAL IV PRN (20:12)
[2023-11-05] MEDS: SODIUM CHLORIDE 0.9% 1,000 ML IV SCH (21:00)
[2023-11-05] MEDS: LEVOFLOXACIN 500MG-D5W PMX 500 MG in DEXTROSE/WATER 1 100ML.BAG IVPB STA (21:02)
--- NOTE | 2023-11-05 22:50 | P.HPIM ---
History of Present Illness H&P Date: 11/05/23 Chief Complaint: Abdominal pain Patient is a 88-year-old female with past medical history of IBS, hypothyroidism, hypertension and A-fib (on Eliquis), presented to the ED with a complaint of abdominal pain. Patient reports generalized abdominal pain which is described as constant, sharp, 10 out of 10, nonradiating associated with constipation since the last 11 days. Patient has had very few bowel movements during that time and the last bowel movement was 4 to 5 days ago. Abdominal pain has subsided somewhat from 02/09 to 8/10 at the time of interview but continues to be constant. Patient reports no previous episodes of extreme constipation associated with abdominal pain. Patient has been taking [id number] milk of magnesia and prune juice which did not alleviate the pain. Patient also reports taking tramadol twice daily from the past 2 weeks which was switched over to [place] 2 days ago for pain from chronic sciatica as prescribed by her orthopedic surgeon. Patient is also unable to eat or drink since yesterday and only had a half sandwich. Otherwise she denies any nausea, vomiting, fever, chills, shortness of breath, chest pain, diarrhea, numbness or tingling in upper and lower extremities. Patient has undergone extensive laboratory and imaging evaluation in the ED KUB shows dilated gaseous loop of bowel present in the left upper quadrant Abdominal and pelvis CT with contrast is significant for partial large bowel obstruction of the sigmoid colon secondary to colitis versus mass with upstream dilation of large and small bowel containing fluid and gas. Multiple indeterminate enhancing lesions within the liver as well as sclerotic lesion within the left proximal femur concerning for malignancy. Abnormal soft tissue within the mesentery near the cecum possibly representing stricture. Laboratory evaluation shows WBC 14.1, hemoglobin 12.7, hematocrit 39.3, MCV 101.6, neutrophil count 11.0, sodium 133, potassium 4.2, chloride 102, bicarb 27, BUN 16, creatinine 1.56, glucose 120, total bilirubin 1.2. Vital signs: Tmax 98.5 F, heart rate 63, respiratory rate 16, blood pressure 152/62, O2 saturation 96 on room air Review of systems: Pertinent positives and negatives as discussed in HPI, a complete review of systems was performed and all other systems are negative. Social history: Tobacco: None Alcohol: None Recreational drugs: None Travel: No recent travel Occupation: Retired Family History: Noncontributory Physical examination: Vital signs reviewed General: non toxic, no distress, appears at stated age, normal weight Derm: no unusual rashes/lesions, warm Head: atraumatic, normocephalic, symmetric Eyes: EOMI, no lid lag, anicteric sclera, pupils equal round reactive to light ENT: Nose and ears atraumatic Neck: No cervical lymphadenopathy, trachea midline, supple Mouth: no lip lesion, mucus membranes moist Cardiovascular: S1S2 irregular, grade 2 systolic murmur, positive dorsalis pedis pulse bilateral, no edema Lungs: CTA bilateral, no rhonchi, no rales, no accessory muscle use Abdominal: soft, generalized tenderness to palpation, no guarding, no rebound tenderness Ext: muscle strength 5 out of 5 in all 4 extremities grossly, no gross muscle atrophy, no contractures, Neuro: CN II-XI grossly intact, no gross focal neuro deficits Psych: Alert, oriented, appropriate affect Assessment/Plan: 88-year-old female with past medical history of IBS, hypothyroid, hypertension and A-fib (on Eliquis) presented the ER with abdominal pain associated with constipation and suspected colitis vs mass since last 11 days 1. Abdominal pain, likely due to partial large bowel obstruction and colitis as per CT abdomen and pelvis Consult General surgery Avoid excessive opiate use for now with moprine 2 mg ivp q4h prn for severe pain Ordered oral laxative Repeat CBC and BMP Continue with n.p.o. diet Follow-up on blood culture Will continue with empiric Flagy 500 mg IV q8h 2. Multiple hepatic mass lesions per CT abdomen pelvis Oncology consult for guidance in diagnostic workup and prognostication in light of patient's advanced age Patient will likely need IR guided liver biopsy She is currently on Eliquis which would need to be held 3. Macrocytosis Check vitamin B12 and folate serum levels 4. Hyperglycemia Repeat BMP If serum glucose levels trend up, will consider starting her on sliding scale short acting insulin 5. Hyponatremia, suspect due to SiADH vs poor oral intake Monitor for now C/w IVFs NS 75 ml/hr *Chronic conditions Hypothyroidism, atrial fibrillation, urinary incontinence Resume home meds including Eliquis, Levothyroxine, Losartan, and Lipitor. Hold HCTZ for now. DVT prophylaxis: Eliquis The patient is admitted with an anticipated more than 2 midnight stay for evaluation of abdominal pain likely due to large bowel obstruction complicated with colitis CODE STATUS: DNR Discussed with: Patient Anticipated discharge place: Home Past Medical History Past Medical History: Atrial Fibrillation, Cancer, Hyperlipidemia, Hypertension Additional Past Medical History / Comment(s): breast CA 1988, chroic back pain History of Any Multi-Drug Resistant Organisms: ESBL Date of last positivie culture/infection: 05/04/19-ESBL E.coli MDRO Source:: Urine Past Surgical History: Orthopedic Surgery Additional Past Surgical History / Comment(s): lumpectomy. BILAT KNEE REPL. BILAT CATARACT REM Past Anesthesia/Blood Transfusion Reactions: No Reported Reaction Past Psychological History: No Psychological Hx Reported Smoking Status: Never smoker Past Alcohol Use History: Daily Past Drug Use History: None Reported Medications and Allergies Home Medications Medication Instructions Recorded Confirmed Type Amiodarone HCl [Pacerone] 200 mg PO DAILY 05/19/22 11/05/23 History Apixaban [Eliquis] 5 mg PO BID 05/19/22 11/05/23 History Atorvastatin [Lipitor] 20 mg PO DAILY 05/19/22 11/05/23 History Calcium Carbonate [Calcium] 600 mg PO HS 05/19/22 11/05/23 History Cholecalciferol [Vitamin D3 (25 25 mcg PO HS 05/19/22 11/05/23 History Mcg = 1000 Iu)] Cyanocobalamin (Vitamin B-12) 1,000 mcg PO Q7D 05/19/22 11/05/23 History [Vitamin B-12] Levothyroxine Sodium [Synthroid] 100 mcg PO DAILY 05/19/22 11/05/23 History Losartan/Hydrochlorothiazide 1 tab PO DAILY 05/19/22 11/05/23 History [Losartan-Hctz 50-12.5 mg Tab] Multivit-Min/FA/Lycopen/Lutein 1 tab PO HS 05/19/22 11/05/23 History [Centrum Silver Tablet] Omeprazole [PriLOSEC] 20 mg PO DAILY 05/19/22 11/05/23 History Metoprolol Tartrate 25 mg PO BID 09/14/22 11/05/23 History Acetaminophen Tab [Tylenol Tab] 1,000 mg PO BID 11/05/23 11/05/23 History HYDROcodone/APAP 5-325MG [[place] 1 tab PO BID PRN 11/05/23 11/05/23 History 5-325] Magnesium Hydroxide [Milk of 2,400 mg PO DAILY PRN 11/05/23 11/05/23 History Magnesia] Mirabegron [Myrbetriq] 50 mg PO DAILY 11/05/23 11/05/23 History Super B Complex 1 tab PO Q7D 11/05/23 11/05/23 History traMADol HCL 50 mg PO TID PRN 11/05/23 11/05/23 History Allergies Allergy/AdvReac Type Severity Reaction Status Date / Time No Known Allergies Allergy Verified 11/05/23 18:15 Physical Exam Vitals: Vital Signs Temp Pulse Pulse Resp BP BP Pulse Ox 11/05/23 21:36 97.9 F 65 16 152/62 96 11/05/23 21:15 98.0 F 63 16 146/67 95 11/05/23 18:44 97.9 F 76 18 123/83 97 11/05/23 16:39 98.5 F 64 16 156/74 95 Intake and Output 11/05/23 11/05/23 11/05/23 06:59 14:59 22:59 Other: Weight 61.235 kg Results CBC & Chem 7: 11/05/23 18:01 11/05/23 18:01 Labs: Abnormal Lab Results - Last 24 Hours (Table) 11/05/23 11/05/23 Range/Units 18:01 18:01 WBC 14.1 H (3.8-10.6) k/uL MCV 101.6 H (80.0-100.0) fL Neutrophils # 11.0 H (1.3-7.7) k/uL Sodium 133 L (137-145) mmol/L Glucose 120 H (74-99) mg/dL AST 42 H (14-36) U/L Total Protein 6.2 L (6.3-8.2) g/dL
[2023-11-06] MEDS: bisacodyL 5 MG TABLET.DR PO STA (00:39)
[2023-11-06] MEDS: metroNIDAZOLE-NS PMX 500 MG in SALINE 1 100ML.BAG IVPB SCH (00:40)
[2023-11-06] MEDS: metroNIDAZOLE-NS PMX 500 MG in SALINE 1 100ML.BAG IVPB STA (00:49)
[2023-11-06] MEDS: MORPHINE SULFATE 4 MG/ML SYRINGE IV PRN (03:31)
[2023-11-06 03:59] LABS: HCT 35.5 % (34.0-46.0); HGB 12.1 gm/dL (11.4-16.0); MCH 33.9 pg (25.0-35.0); MCHC 34.1 g/dL (31.0-37.0); MCV 99.4 fL (80.0-100.0); Mean Platelet Volume 7.9; Platelet Count 223 k/uL (150-450); RBC 3.57 m/uL (3.80-5.40); RDW 13.6 % (11.5-15.5); WBC 14.5 k/uL (3.8-10.6)
[2023-11-06 04:25] LABS: African American GFR (CKD) >90 (>60 ml/min/1.73 sqM); Anion Gap 5 mmol/L; Blood Urea Nitrogen 13 mg/dL (7-17); Calcium 8.7 mg/dL (8.4-10.2); Carbon Dioxide 24 mmol/L (22-30); Chloride 103 mmol/L (98-107); Glucose 104 mg/dL (74-99); Non-African American GFR(CKD) 88 (>60 ml/min/1.73 sqM); Potassium 3.6 mmol/L (3.5-5.1); Sodium 132 mmol/L (137-145)
[2023-11-06] MEDS: LEVOTHYROXINE 100 MCG TAB PO SCH (06:08)
--- NOTE | 2023-11-06 08:04 | P.GSCN ---
History of Present Illness Consult date: 11/05/23 History of present illness: CHIEF COMPLAINT: Abdominal pain with distention HISTORY OF PRESENT ILLNESS: The patient is a 88-year-old female being seen and evaluated for abdominal pain. Patient reports increased abdominal distention over 1 to 2 weeks. She had prior colonoscopy over 1 year ago which was unremarkable with exception of diverticulosis. No blood in stools. She reports constipation. She reports difficulty with bowel habits. General surgery is con sulted for abdominal pain with distention. PAST MEDICAL HISTORY: See list and reviewed PAST SURGICAL HISTORY: See list and reviewed MEDICATIONS: See list and reviewed ALLERGIES: See list and reviewed SOCIAL HISTORY: See list and reviewed FAMILY HISTORY: See list and reviewed REVIEW OF ORGAN SYSTEMS: CONSTITUTIONAL: No fevers or chills. No recent weight loss. EYES: Denies any trouble with vision. Wears glasses. Prior bilateral cataract extraction. HEENT: No difficulties with hearing. No nosebleeds. No difficulty swallowing. RESPIRATORY: Denies pneumonia. Denies any troubles with breathing or dyspnea on exertion. CARDIOVASCULAR: Has atrial fibrillation with hypertensive heart disease and hyperlipidemia. On chronic blood thinners. GASTROINTESTINAL: Prior diarrhea for colonoscopy August 2022 GENITOURINARY: Denies any blood in urine or increased urinary frequency. NEUROLOGICAL: Denies any numbness or tingling along the distal extremities. No seizure disorders or headaches. MUSCULOSKELETAL: Reports back pain, stiffness or joint arthritis. History of bilateral knee replacement. SKIN: No current skin cancer. No rash. PSYCHIATRIC: Denies current depression or suicidal thoughts. ENDOCRINE: Denies current thyroid disorders. Denies any blood sugar glucose intolerance. HEME/LYMPHATIC: Denies any lumps and bumps around the neck. No recent deep venous thrombosis. On chronic blood thinners due to atrial fibrillation ALLERGY/IMMUNOLOGY: No immunoglobulin therapy. No immune deficiencies. History of ESBL urine for urinary tract infection. BREAST: History of breast cancer with lumpectomy. PHYSICAL EXAM: VITALS: Reviewed CONSTITUTIONAL: Well developed and in no acute distress. EYES: Conjuctivae without sclera icterus. Extraocular movements grossly intact. HEAD, EARS, NOSE, THROAT: Moist buccal mucosa. Head is atraumatic, normocephalic. Hears conversational speech. No nasal drainage. NECK: Supple. No JV distention. No thyroidomegaly. RESPIRATORY: Non-labored respirations and equal bilateral excursions. No gross wheezes. CARDIOVASCULAR: Palpable 2+ radial pulses. ABDOMEN: Abdominal distended. No generalized peritonitis. LYMPH: No neck lymphadenopathy. MUSCULOSKELETAL: No clubbing cyanosis or edema SKIN: Warm and well perfused with good skin turgor. NEUROLOGIC: Cranial nerves II through XII grossly intact. No focal or lateralizing signs. PSYCH: Appropriate affect. Alert and oriented to person, place and time. Displays appropriate insight. CLINCAL LABS: Reviewed. WBC elevated 14.1, leukocytosis hemoglobin normal. Creatinine normal. AST elevated. Sodium low, 133 hyponatremia IMAGING: Independently reviewed. CT of the abdomen pelvis independently reviewed demonstrates mild cardiomegaly. Multiple cystic including subtle l esions along the right and left lobe. Moderately distended gallbladder suspicious for hydrops. Diffuse colonic distention involving ascending transverse colon. Moderate circumferential wall thickening involving the sigmoid colon with stricture of the sigmoid colon and diverticulosis with diverticulitis. No free air. Questionable fistulization or narrowing of the right lower quadrant small bowel. This is my independent interpretation. RADIOLOGY: Report reviewed CT abdomen pelvis reviewed demonstrates multiple cystic lesions along the liver up to 3 cm. Sclerotic lesions along the femur i dentified. Questionable area of bowel obstruction of the right lower quadrant. Narrowing of the colon with diverticulosis of the sigmoid colon with upstream large bowel obstruction, partial. RECORDS: previous old records reviewed. Pathology report from August 2022 demonstrates benign mucosa. Colonoscopy performed for watery multiple bowel movements greater than 5-6. Colonoscopy demonstrates moderate left-sided diverticulosis. EKG [address] and T wave abnormalities. ASSESSMENT: 1. Abdominal pain with distention 2. Hyponatremia 3. History of breast cancer 4. Large bowel obstruction diverticulosis 5. Diverticulosis diverticulitis 6. Abnormal CT scan for malignancy 7. Leukocytosis PLAN: 1. Recommend IV antibiotics for suspicion of diverticulitis with area of stricture and location of diverticulosis 2. Due to recent endoscopy in the past year, less likely malignancy from colonic source unless very aggressive type. With a history of breast cancer, may benefit from tumor markers for breast cancer. 3. Possibility of colon resection with colonic diversion described pending clinical course with antibiotics. 4. May have ice chips popsicles. 5. Recommend cardiac risk assessment for possible surgical intervention while inpatient 6. DVT prophylaxis with discontinuation of Eliquis in the interim ADVANCE DIRECTIVE: CODE STATUS in chart Thank you for this kind consultation. Past Medical History Past Medical History: Atrial Fibrillation, Cancer, Hyperlipidemia, Hypertension Additional Past Medical History / Comment(s): breast CA 1988, chroic back pain 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 BILAT KNEE REPL. BILAT CATARACT REM Past Anesthesia/Blood Transfusion Reactions: No Reported Reaction Past Psychological History: No Psychological Hx Reported Smoking Status: Never smoker Past Alcohol Use History: Daily Past Drug Use History: None Reported Medications and Allergies Home Medications Medication Instructions Recorded Confirmed Type Amiodarone HCl [Pacerone] 200 mg PO DAILY 05/19/22 11/05/23 History Apixaban [Eliquis] 5 mg PO BID 05/19/22 11/05/23 History Atorvastatin [Lipitor] 20 mg PO DAILY 05/19/22 11/05/23 History Calcium Carbonate [Calcium] 600 mg PO HS 05/19/22 11/05/23 History Cholecalciferol [Vitamin D3 (25 25 mcg PO HS 05/19/22 11/05/23 History Mcg = 1000 Iu)] Cyanocobalamin (Vitamin B-12) 1,000 mcg PO Q7D 05/19/22 11/05/23 History [Vitamin B-12] Levothyroxine Sodium [Synthroid] 100 mcg PO DAILY 05/19/22 11/05/23 History Losartan/Hydrochlorothiazide 1 tab PO DAILY 05/19/22 11/05/23 History [Losartan-Hctz 50-12.5 mg Tab] Multivit-Min/FA/Lycopen/Lutein 1 tab PO HS 05/19/22 11/05/23 History [Centrum Silver Tablet] Omeprazole [PriLOSEC] 20 mg PO DAILY 05/19/22 11/05/23 History Metoprolol Tartrate 25 mg PO BID 09/14/22 11/05/23 History Acetaminophen Tab [Tylenol Tab] 1,000 mg PO BID 11/05/23 11/05/23 History HYDROcodone/APAP 5-325MG [[place] 1 tab PO BID PRN 11/05/23 11/05/23 History 5-325] Magnesium Hydroxide [Milk of 2,400 mg PO DAILY PRN 11/05/23 11/05/23 History Magnesia] Mirabegron [Myrbetriq] 50 mg PO DAILY 11/05/23 11/05/23 History Super B Complex 1 tab PO Q7D 11/05/23 11/05/23 History traMADol HCL 50 mg PO TID PRN 11/05/23 11/05/23 History Allergies Allergy/AdvReac Type Severity Reaction Status Date / Time No Known Allergies Allergy Verified 11/05/23 18:15 Surgical - Exam Vital Signs Temp Pulse Resp BP Pulse Ox 98.5 F 64 16 156/74 95 11/05/23 16:39 11/05/23 16:39 11/05/23 16:39 11/05/23 16:39 11/05/23 16:39 Results - Labs 11/06/23 03:33 11/06/23 03:33 Abnormal Lab Results - Last 24 Hours (Table) 11/05/23 11/05/23 Range/Units 18:01 18:01 WBC 14.1 H (3.8-10.6) k/uL MCV 101.6 H (80.0-100.0) fL Neutrophils # 11.0 H (1.3-7.7) k/uL Sodium 133 L (137-145) mmol/L Glucose 120 H (74-99) mg/dL AST 42 H (14-36) U/L Total Protein 6.2 L (6.3-8.2) g/dL Diabetes panel 11/05/23 Range/Units 18:01 Sodium 133 L (137-145) mmol/L Potassium 4.2 (3.5-5.1) mmol/L Chloride 102 (98-107) mmol/L Carbon Dioxide 27 (22-30) mmol/L BUN 16 (7-17) mg/dL Creatinine 0.56 (0.52-1.04) mg/dL Glucose 120 H (74-99) mg/dL Calcium 9.0 (8.4-10.2) mg/dL AST 42 H (14-36) U/L ALT 19 (4-34) U/L Alkaline Phosphatase 60 (38-126) U/L Total Protein 6.2 L (6.3-8.2) g/dL Albumin 3.7 (3.5-5.0) g/dL Calcium panel 11/05/23 Range/Units 18:01 Calcium 9.0 (8.4-10.2) mg/dL Albumin 3.7 (3.5-5.0) g/dL Pituitary panel 11/05/23 Range/Units 18:01 Sodium 133 L (137-145) mmol/L Potassium 4.2 (3.5-5.1) mmol/L Chloride 102 (98-107) mmol/L Carbon Dioxide 27 (22-30) mmol/L BUN 16 (7-17) mg/dL Creatinine 0.56 (0.52-1.04) mg/dL Glucose 120 H (74-99) mg/dL Calcium 9.0 (8.4-10.2) mg/dL Adrenal panel 11/05/23 Range/Units 18:01 Sodium 133 L (137-145) mmol/L Potassium 4.2 (3.5-5.1) mmol/L Chloride 102 (98-107) mmol/L Carbon Dioxide 27 (22-30) mmol/L BUN 16 (7-17) mg/dL Creatinine 0.56 (0.52-1.04) mg/dL Glucose 120 H (74-99) mg/dL Calcium 9.0 (8.4-10.2) mg/dL Total Bilirubin 1.2 (0.2-1.3) mg/dL AST 42 H (14-36) U/L ALT 19 (4-34) U/L Alkaline Phosphatase 60 (38-126) U/L Total Protein 6.2 L (6.3-8.2) g/dL Albumin 3.7 (3.5-5.0) g/dL
[2023-11-06] MEDS: HYDROcodone/APAP 5-325MG 1 EACH TAB PO PRN (08:48)
[2023-11-06] MEDS: APIXABAN 5 MG TAB PO SCH (08:49)
[2023-11-06] MEDS: METOPROLOL TARTRATE 25 MG TAB PO SCH (08:49)
[2023-11-06] MEDS: PANTOPRAZOLE 40 MG TABLET PO SCH (08:49)
[2023-11-06] MEDS: ATORVASTATIN 20 MG TAB PO SCH (08:50)
[2023-11-06] MEDS: AMIODARONE 200 MG TAB PO SCH (08:50)
--- NOTE | 2023-11-06 13:15 | P.PN ---
Subjective Progress Note Date: 11/06/23 Subjective Patient seen and examined at bedside. No acute events overnight. Patient is NPO. Says abdominal pain has not gone away. Passing minimal flatulence. Pertinent positives and negatives as discussed above, a complete review of systems was performed and all other systems are negative. Vitals: Signs Reviewed Physical Exam: General: nontoxic, no distress, appears at stated age Derm: warm, dry, intact Head: atraumatic, normocephalic, symmetric Eyes: EOMI, no lid lag, anicteric sclera Mouth: no lip lesion, mucus membranes moist Cardiovascular: S1 S2 reg, no murmur, rubs, or gallops Lungs: CTA bilateral, no rhonchi, no rales, no accessory muscle use Abdominal: soft, tender to palpataion, no appreciable organomegaly Extremities: no gross muscle atrophy, no edema, no contractures Neuro: Alert, Oriented, CNII-XII grossly intact, gait normal Psych: well appearing, appropriate affect Data Received Today: Pertinent Labs: Glucose: 104, sodium: 132, WBC: 14.1, creatinine 0.49, B12 1400, TSH 18.3 Imaging: CT abdomen and pelvis: Partial large bowel obstruction of the sigmoid colon. Multiple enhancing lesions within the liver, and a sclerotic lesion with within the left proximal femur. Assessment and Plan: 88-year-old female with past medical history of IBS, hypothyroid, hypertension, breast cancer, and A-fib presents with abdominal pain associated with constipation Abdominal pain, likely due to partial large bowel obstruction malignancy vs. colitis Continue n.p.o. diet. Continue IV fluids 75 cc normal saline Intake/output ordered Avoid excessive opiate use for now with moprine 2 mg ivp q4h prn for severe pain General surgery consulted, would like to conservatively manage patient first before considering surgery Follow-up on blood culture For leukocytosis due to suspected colitis. Will continue with empiric Flagyl 500 mg IV q8h for anaerobic coverage. Ordered IV ceftriaxone 2gm for broader coverage of gram-negative bacterial infection Repeat CBC and BMP -Discussed management with oncology, will obtain MR liver, tumor markers ordered Multiple hepatic mass lesions Oncology consult for guidance in diagnostic workup and prognostication in light of patient's advanced age Patient will likely need IR guided liver biopsy. Oncologist may consider abdominal MRI Will hold home Eliquis if biopsy needed Macrocytosis, resolved vitamin B12 within normal limits Folate pending Hyperglycemia, likely stress-induced Serum glucose levels have decreased we will continue to monitor with repeat BMP Hyponatremia, mild, likely hypovolemic Monitor for now BMP ordered -Continue normal saline at 75 cc an hour Hypothyroidism, chronic resume Levothyroxine -TSH elevated, unsure if this is secondary to poor absorption Atrial fibrillation, chronic Resume home Eliquis, metoprolol 25 twice daily amiodarone 200 mg daily Urinary incontinence, chronic Hypertension Hold HCTZ for now. As patient is also on IV fluids -Hold losartan F: N/A E: Replete as needed N: NPO A: fall precautions DVT ppx: Lovenox subcu Code status: No code Anticipated discharge place: pending clinical course ANticipated discharge time: Pending clinical course I have seen and evaluated the patient today. Discussed with the resident and agree with the residents finding and plan as documented in the resident's note. Changes highlighted in blue. Objective - Vital Signs Vital signs: Vital Signs Temp 98.9 F 11/06/23 07:17 Pulse 94 11/06/23 07:17 Resp 16 11/06/23 07:17 BP 126/81 11/06/23 07:17 Pulse Ox 95 11/06/23 07:17 FiO2 Intake & Output 11/05/23 11/06/23 11/06/23 18:59 06:59 18:59 Weight 61.235 kg 61.235 kg Other: Voiding Method Toilet # Voids 2 - Labs CBC & Chem 7: 11/06/23 03:33 11/06/23 03:33 Labs: Abnormal Lab Results - Last 24 Hours (Table) 11/05/23 11/05/23 11/06/23 Range/Units 18:01 18:01 03:33 WBC 14.1 H 14.5 H (3.8-10.6) k/uL RBC 3.57 L (3.80-5.40) m/uL MCV 101.6 H (80.0-100.0) fL Neutrophils # 11.0 H (1.3-7.7) k/uL Sodium 133 L (137-145) mmol/L Creatinine (0.52-1.04) mg/dL Glucose 120 H (74-99) mg/dL AST 42 H (14-36) U/L Total Protein 6.2 L (6.3-8.2) g/dL Vitamin B12 (200.0-944.0) pg/mL 11/06/23 11/06/23 Range/Units 03:33 03:33 WBC (3.8-10.6) k/uL RBC (3.80-5.40) m/uL MCV (80.0-100.0) fL Neutrophils # (1.3-7.7) k/uL Sodium 132 L (137-145) mmol/L Creatinine 0.49 L (0.52-1.04) mg/dL Glucose 104 H (74-99) mg/dL AST (14-36) U/L Total Protein (6.3-8.2) g/dL Vitamin B12 1467.0 H (200.0-944.0) pg/mL
--- NOTE | 2023-11-06 13:44 | P.CONS ---
History of Present Illness - Reason for Consult Consult date: 11/06/23 Suspected malignancy - Chief Complaint Abdominal pain - History of Present Illness Ms. Islas is an 88-year-old woman with a past medical history significant for breast cancer diagnosed in the late 1980s status post right breast lumpectomy and radiation therapy, hypothyroidism, hypertension, and atrial fibrillation on Eliquis presenting with abdominal pain. She notes this has been ongoing for the past 1 to 2 weeks with progressive constipation. She has been taking [id number] milk of magnesia and prune juice in addition to tramadol twice daily and then more recently Spencer over the past 2 to 3 days that she takes for sciatica. Her last bowel movement was 4 to 5 days ago. She denies any nausea, vomiting, melena, hematochezia, bright blood per rectum, or constitutional symptoms including fevers, chills, night sweats, lymphadenopathy, anorexia, or unexplained weight loss. Prior to the onset of abdominal pain 10 to 11 days ago, she was at her baseline without any concerning signs or symptoms. On presentation, she was hemodynamically stable and afebrile. Labs noted neutrophilic leukocytosis with WBC 14.1 (ANC 11), hemoglobin 12.7 (MCV 101.6), platelets 231. CMP noted no significant metabolic abnormalities with mildly elevated AST at 42. Amylase and lipase for normal. Vitamin B12 was elevated at 1467. CT abdomen and pelvis with contrast on admission noted partial large bowel obstruction of the sigmoid colon secondary to colitis versus mass with upstream dilatation of large and small bowel containing fluid and gas. There are multiple enhancing lesions within the liver that were indeterminate as well as sclerotic lesion within the left proximal femur concerning for malignancy. Abnormal soft tissue within the mesentery near the cecum was noted, possibly representing stricture. This was present in 2016 and may have increased in size. Of note, she did have colonoscopy on 09/16/2022 due to alternating episodes of diarrhea and constipation and was noted to have normal-appearing colon from rectum to cecum with no evidence of colitis or malignancy. Random biopsies at that time in the ascending and descending colon noted benign colonic mucosa. With regards to her breast cancer, she underwent radiation therapy following right breast lumpectomy with no adjuvant chemotherapy or endocrine therapy. Most recent mammogram on 10/19/2022 noted benign findings with recommended repeat screening mammogram in 1 year. She does note a family history of pancreatic cancer in her sister, esophageal cancer in her brother, and mother having had breast cancer. She denies any current or prior cigarette smoking or alcohol abuse. Review of Systems 14 point review of systems conducted pertinent positives and negatives as noted per HPI Past Medical History Past Medical History: Atrial Fibrillation, Cancer, Hyperlipidemia, Hypertension Additional Past Medical History / Comment(s): breast CA 1988, chroic back pain 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 BILAT KNEE REPL. BILAT CATARACT REM Past Anesthesia/Blood Transfusion Reactions: No Reported Reaction Past Psychological History: No Psychological Hx Reported Smoking Status: Never smoker Past Alcohol Use History: Daily Past Drug Use History: None Reported Medications and Allergies Home Medications Medication Instructions Recorded Confirmed Type Amiodarone HCl [Pacerone] 200 mg PO DAILY 05/19/22 11/05/23 History Apixaban [Eliquis] 5 mg PO BID 05/19/22 11/05/23 History Atorvastatin [Lipitor] 20 mg PO DAILY 05/19/22 11/05/23 History Calcium Carbonate [Calcium] 600 mg PO HS 05/19/22 11/05/23 History Cholecalciferol [Vitamin D3 (25 25 mcg PO HS 05/19/22 11/05/23 History Mcg = 1000 Iu)] Cyanocobalamin (Vitamin B-12) 1,000 mcg PO Q7D 05/19/22 11/05/23 History [Vitamin B-12] Levothyroxine Sodium [Synthroid] 100 mcg PO DAILY 05/19/22 11/05/23 History Losartan/Hydrochlorothiazide 1 tab PO DAILY 05/19/22 11/05/23 History [Losartan-Hctz 50-12.5 mg Tab] Multivit-Min/FA/Lycopen/Lutein 1 tab PO HS 05/19/22 11/05/23 History [Centrum Silver Tablet] Omeprazole [PriLOSEC] 20 mg PO DAILY 05/19/22 11/05/23 History Metoprolol Tartrate 25 mg PO BID 09/14/22 11/05/23 History Acetaminophen Tab [Tylenol Tab] 1,000 mg PO BID 11/05/23 11/05/23 History HYDROcodone/APAP 5-325MG [Spencer 1 tab PO BID PRN 11/05/23 11/05/23 History 5-325] Magnesium Hydroxide [Milk of 2,400 mg PO DAILY PRN 11/05/23 11/05/23 History Magnesia] Mirabegron [Myrbetriq] 50 mg PO DAILY 11/05/23 11/05/23 History Super B Complex 1 tab PO Q7D 11/05/23 11/05/23 History traMADol HCL 50 mg PO TID PRN 11/05/23 11/05/23 History Allergies Allergy/AdvReac Type Severity Reaction Status Date / Time No Known Allergies Allergy Verified 11/05/23 18:15 Physical Exam Vitals: Vital Signs Temp Pulse Pulse Resp BP BP BP 11/06/23 07:17 98.9 F 94 16 126/81 11/06/23 01:23 98.8 F 68 16 150/66 11/05/23 21:36 97.9 F 65 16 152/62 11/05/23 21:15 98.0 F 63 16 146/67 11/05/23 18:44 97.9 F 76 18 123/83 11/05/23 16:39 98.5 F 64 16 156/74 Pulse Ox 11/06/23 07:17 95 11/06/23 01:23 97 11/05/23 21:36 96 11/05/23 21:15 95 11/05/23 18:44 97 11/05/23 16:39 95 Intake and Output 11/05/23 11/06/23 11/06/23 22:59 06:59 14:59 Other: # Voids 2 Weight 61.235 kg - Constitutional General appearance: cooperative, no acute distress - EENT Eyes: EOMI - Respiratory Respiratory: bilateral: CTA - Cardiovascular Rhythm: regular - Gastrointestinal General gastrointestinal: distended, hyperactive bowel sounds, soft, tenderness Localized gastrointestinal: tender: diffuse, rebound: diffuse - Integumentary Integumentary: no pale, no rash - Neurologic Neurologic: CNII-XII intact - Psychiatric Psychiatric: A&O x's 3 Results CBC & Chem 7: 11/06/23 03:33 11/06/23 03:33 Labs: Abnormal Lab Results - Last 24 Hours (Table) 11/05/23 11/05/23 11/06/23 Range/Units 18:01 18:01 03:33 WBC 14.1 H 14.5 H (3.8-10.6) k/uL RBC 3.57 L (3.80-5.40) m/uL MCV 101.6 H (80.0-100.0) fL Neutrophils # 11.0 H (1.3-7.7) k/uL Sodium 133 L (137-145) mmol/L Creatinine (0.52-1.04) mg/dL Glucose 120 H (74-99) mg/dL AST 42 H (14-36) U/L Total Protein 6.2 L (6.3-8.2) g/dL Vitamin B12 (200.0-944.0) pg/mL 11/06/23 11/06/23 Range/Units 03:33 03:33 WBC (3.8-10.6) k/uL RBC (3.80-5.40) m/uL MCV (80.0-100.0) fL Neutrophils # (1.3-7.7) k/uL Sodium 132 L (137-145) mmol/L Creatinine 0.49 L (0.52-1.04) mg/dL Glucose 104 H (74-99) mg/dL AST (14-36) U/L Total Protein (6.3-8.2) g/dL Vitamin B12 1467.0 H (200.0-944.0) pg/mL CT scan - abdomen: report reviewed, image reviewed Assessment and Plan (1) Neutrophilic leukocytosis Current Visit: Yes Status: Acute Code(s): D72.9 - DISORDER OF WHITE BLOOD CELLS, UNSPECIFIED SNOMED Code(s): 002853410 (2) Partial bowel obstruction Current Visit: Yes Status: Acute Code(s): K56.600 - PARTIAL INTESTINAL OB STRUCTION, UNSPECIFIED TO CAUSE SNOMED Code(s): 94992314380402230 (3) Breast cancer Current Visit: Yes Status: Chronic Code(s): C50.919 - MALIGNANT NEOPLASM OF UNSP SITE OF UNSPECIFIED FEMALE BREAST SNOMED Code(s): 894567285 (4) Macrocytosis without anemia Current Visit: Yes Status: Acute Code(s): D75.89 - OTHER SPECIFIED DISEASES OF BLOOD AND BLOOD-FORMING ORGANS SNOMED Code(s): 262588452 Plan: #Partial large bowel obstruction -Noted on CT abdomen/pelvis on admission obtained due to persistent abdominal discomfort -Indeterminate liver lesions were also noted as well as potential sclerotic lesion in left proximal femur -Last colonoscopy in August 2022 revealed no abnormal findings -General surgery has been consulted and recommended continued IV antibiotics for possible diverticulitis with possibility of colon resection with colonic diversion depending on clinical course -I had an extended discussion with Melody and her daughter today -We discussed that while malignancy is on the differential diagnosis, a definitive diagnosis of malignancy would not be made by imaging alone and would require tissue sampling through biopsy -Malignancy possibilities include GI primary, less likely metastatic breast cancer given her prior breast cancer was treated 35 years ago, lymphoma -I do recommend liver MRI with and without contrast in addition to tumor markers including CEA, AFP, CA 19-9, CA 15-3, and CA 27-29 -She may need additional imaging such as CT of the chest and nuclear medicine stella ne scan for additional staging if there are lesions on liver MRI concerning for malignancy #Macrocytosis without anemia -Could be secondary to inflammation from underlying etiology -Vitamin B12 was not deficient on admission -Folate and TSH with reflex T4 ordered #Neutrophilic leukocytosis -Secondary to inflammation from possible infection and/or underlying malignancy -Continue to monitor at this time, no additional workup indicated Detsinee Mi MD Time with Patient: Greater than 30
[2023-11-06 16:07] LABS: T4, Free (Free Thyroxine) 1.67 ng/dL (0.78-2.19)
--- NOTE | 2023-11-06 17:56 | P.PN ---
Progress Note - Text Progress Note Date: 11/06/23 CHIEF COMPLAINT: Bowel Obstruction HISTORY OF PRESENT ILLNESS: NAEO REVIEW OF ORGAN SYSTEMS: CONSTITUTIONAL: No fevers or chills. EYES: Denies any trouble with vision. No glasses. HEENT: No difficulties with hearing. No nosebleeds. No difficulty swallowing. RESPIRATORY: No difficulty Breathing CARDIOVASCULAR: Denies any chest pain, palpitations GASTROINTESTINAL: Distention, Abdominal Pain PHYSICAL EXAM: VITALS: Reviewed CONSTITUTIONAL: Well developed and in no acute distress. EYES: Conjuctivae without sclera icterus. Extraocular movements grossly intact. HEAD, EARS, NOSE, THROAT: Moist buccal mucosa. Head is atraumatic, normocephalic. Hears conversational speech. No nasal drainage. RESPIRATORY: Non-labored respirations and equal bilateral excursions. No gross wheezes. CARDIOVASCULAR: Palpable 2+ radial pulses. ABDOMEN: slightly distended, NT MUSCULOSKELETAL: No clubbing cyanosis or edema SKIN: Warm and well perfused with good skin turgor. NEUROLOGIC: Cranial nerves II through XII grossly intact. No focal or lateralizing signs. PSYCH: Appropriate affect. Alert and oriented to person, place and time. Displays appropriate insight. ASSESSMENT: 1. Abdominal pain with distention 2. Hyponatremia 3. History of breast cancer 4. Large bowel obstruction diverticulosis 5. Diverticulosis diverticulitis 6. Abnormal CT scan for malignancy 7. Leukocytosis PLAN: 1. Recommend IV antibiotics for suspicion of diverticulitis with area of stricture and location of diverticulosis 2. Due to recent endoscopy in the past year, less likely malignancy from colonic source unless very aggressive type. With a history of breast cancer, may benefit from tumor markers for breast cancer. Oncology following and ordered MRI of the liver and tumor markers. 3. Possibility of colon resection with colonic diversion described pending clinical course with antibiotics. 4. May have ice chips popsicles. 5. Recommend cardiac risk assessment for possible surgical intervention while inpatient 6. DVT prophylaxis with discontinuation of Eliquis in the interim
[2023-11-06] MEDS: DOCUSATE 100 MG CAP PO PRN (21:25)
[2023-11-07 08:11] LABS: Alpha Fetoprotein, Tumor Mkr 12.4 ng/mL (0.00-7.90); Cancer Antigen 19-9 10.3 U/mL (0.0-34.9); Carcinoembryonic Antigen 4.9 ng/mL (0.0-4.9)
[2023-11-07 09:56] LABS: Basophils # (A) 0.04 X 10*3/uL (0.00-0.10); Basophils % (A) 0.2 %; Eosinophils # (A) 0.01 X 10*3/uL (0.04-0.35); Eosinophils % (A) 0.1 %; HCT 36.4 % (37.2-46.3); HGB 11.9 g/dL (12.0-15.0); Lymphocytes # (A) 2.34 X 10*3/uL (0.90-5.00); Lymphocytes % (A) 13.4 %; MCH 32.2 pg (27.0-32.0); MCHC 32.7 g/dL (32.0-37.0); MCV 98.4 FL (80.0-97.0); Mean Platelet Volume 10.2 FL (9.5-12.2); Monocytes # (A) 1.37 X 10*3/uL (0.20-1.00); Monocytes % (A) 7.8 %; NRBC Per 100 WBC 0 X 10*3/uL (0.00-0.01); Neutrophils # (A) 13.65 X 10*3/uL (1.80-7.70); Neutrophils % (A) 78.1 %; Platelet Count 282 X 10*3/uL (140-440); RDW 14.3 % (11.5-14.5); WBC 17.48 X 10*3/uL (4.50-10.00)
[2023-11-07 10:26] LABS: ALT 13 U/L (8-44); AST 19 U/L (13-35); Albumin 3.2 g/dL (3.8-4.9); Albumin/Globulin Ratio 1.88 Ratio (1.60-3.17); Alkaline Phosphatase 73 U/L (41-126); BUN/Creat Ratio 21.83 Ratio (12.00-20.00); Blood Urea Nitrogen 13.1 mg/dL (9.0-27.0); Calcium 8.3 mg/dL (8.7-10.3); Carbon Dioxide 21.2 mmol/L (21.6-31.8); Chloride 105 mmol/L (96-109); Globulin 1.7 g/dL (1.6-3.3); Glucose 106 mg/dL (70-110); Potassium 3.7 mmol/L (3.5-5.5); Sodium 139 mmol/L (135-145); Total Bilirubin 0.5 mg/dL (0.3-1.2); Total Protein 4.9 g/dL (6.2-8.2)
--- NOTE | 2023-11-07 13:15 | P.PN ---
Subjective Progress Note Date: 11/07/23 Principal diagnosis: Possible malignancy -Afebrile, no acute events overnight -Has persistent abdominal distention with no bowel movement -She denies any nausea, vomiting, or any other new signs or symptoms Objective - Vital Signs Vital signs: Vital Signs Temp 98.4 F 11/07/23 07:11 Pulse 78 11/07/23 09:36 Resp 16 11/07/23 07:11 BP 126/57 11/07/23 09:36 Pulse Ox 94 L 11/07/23 07:11 FiO2 Intake & Output 11/06/23 11/07/23 11/07/23 18:59 06:59 18:59 Other: Voiding Method Toilet Toilet Toilet # Voids 4 - Constitutional General appearance: Present: cooperative, no acute distress - EENT Eyes: Present: EOMI - Respiratory Respiratory: bilateral: CTA - Cardiovascular Rhythm: regular - Gastrointestinal General gastrointestinal: Present: distended, hyperactive bowel sounds, soft Localized gastrointestinal: tender: diffuse, guarding: diffuse - Integumentary Integumentary: Absent: rash - Neurologic Neurologic: Present: CNII-XII intact. Absent: focal deficits - Labs CBC & Chem 7: 11/07/23 05:35 11/07/23 05:35 Labs: Abnormal Lab Results - Last 24 Hours (Table) 11/05/23 11/05/23 11/06/23 Range/Units 18:01 18:01 03:33 WBC (4.50-10.00) X 10*3/uL RBC (4.10-5.20) X 10*6/uL Hgb (12.0-15.0) g/dL Hct (37.2-46.3) % MCV (80.0-97.0) FL MCH (27.0-32.0) pg Immature Gran # (0.00-0.04) X 10*3/uL Neutrophils # (1.80-7.70) X 10*3/uL Monocytes # (0.20-1.00) X 10*3/uL Eosinophils # (0.04-0.35) X 10*3/uL Carbon Dioxide (21.6-31.8) mmol/L Anion Gap (4.00-12.00) mmol/L BUN/Creatinine Ratio (12.00-20.00) Ratio Calcium (8.7-10.3) mg/dL Total Protein (6.2-8.2) g/dL Albumin (3.8-4.9) g/dL Tumor Marker AFP 12.40 H (0.00-7.90) ng/mL Folate 40.00 H (4.40-31.00) ng/mL TSH 18.300 H (0.465-4.680) mIU/L 11/07/23 11/07/23 Range/Units 05:35 05:35 WBC 17.48 H (4.50-10.00) X 10*3/uL RBC 3.70 L (4.10-5.20) X 10*6/uL Hgb 11.9 L (12.0-15.0) g/dL Hct 36.4 L (37.2-46.3) % MCV 98.4 H (80.0-97.0) FL MCH 32.2 H (27.0-32.0) pg Immature Gran # 0.07 H (0.00-0.04) X 10*3/uL Neutrophils # 13.65 H (1.80-7.70) X 10*3/uL Monocytes # 1.37 H (0.20-1.00) X 10*3/uL Eosinophils # 0.01 L (0.04-0.35) X 10*3/uL Carbon Dioxide 21.2 L (21.6-31.8) mmol/L Anion Gap 12.80 H (4.00-12.00) mmol/L BUN/Creatinine Ratio 21.83 H (12.00-20.00) Ratio Calcium 8.3 L (8.7-10.3) mg/dL Total Protein 4.9 L (6.2-8.2) g/dL Albumin 3.2 L (3.8-4.9) g/dL Tumor Marker AFP (0.00-7.90) ng/mL Folate (4.40-31.00) ng/mL TSH (0.465-4.680) mIU/L Microbiology - Last 24 Hours (Table) 11/05/23 20:50 Blood Culture - Preliminary Blood 11/05/23 20:35 Blood Culture - Preliminary Blood Assessment and Plan (1) Neutrophilic leukocytosis Current Visit: Yes Status: Acute Code(s): D72.9 - DISORDER OF WHITE BLOOD CELLS, UNSPECIFIED SNOMED Code(s): 525396184 (2) Partial bowel obstruction Current Visit: Yes Status: Acute Code(s): K56.600 - PARTIAL INTESTINAL OBSTRUCTION, UNSPECIFIED TO CAUSE SNOMED Code(s): 87333000944802178 (3) Breast cancer Current Visit: Yes Status: Chronic Code(s): C50.919 - MALIGNANT NEOPLASM OF UNSP SITE OF UNSPECIFIED FEMALE BREAST SNOMED Code(s): 472963595 (4) Macrocytosis without anemia Current Visit: Yes Status: Acute Code(s): D75.89 - OTHER SPECIFIED DISEASES OF BLOOD AND BLOOD-FORMING ORGANS SNOMED Code(s): 686914856 Plan: #Partial large bowel obstruction -Noted on CT abdomen/pelvis on admission obtained due to persistent abdominal discomfort -Indeterminate liver lesions were also noted as well as potential sclerotic lesion in left proximal femur -Last colonoscopy in August 2022 revealed no abnormal findings -General surgery has been consulted and recommended continued IV antibiotics for possible diverticulitis with possibility of colon resection with colonic diver brad depending on clinical course -Tumor markers obtained from labs on admission noted mild elevation of AFP at 12.4. CA 27-29 is still pending -We discussed that these results were overall nonremarkable and did not lead to an increased suspicion of malignancy of a certain primary at this time -MRI of the liver is still pending and may not be done until 11/08/2023. We discussed that this would lead to a decision as to whether a lesion in the liver could be biopsied -Her daughter did inquire as to when a decision would be made with regards to surgical intervention or not and deferred that decision to general surgery #Macrocytosis without anemia -Could be secondary to inflammation from underlying etiology -Vitamin B12 was not deficient on admission -Folate was normal with elevated TSH at 18.3 and normal T4. Thyroid profile consistent with sick euthyroid presentation #Neutrophilic leukocytosis -Secondary to inflammation from possible infection and/or underlying malignancy -Continue to monitor at this time, no additional workup indicated Destinee Mi MD
--- NOTE | 2023-11-07 13:20 | P.PN ---
Subjective Progress Note Date: 11/07/23 CHIEF COMPLAINT: Abdominal pain with distention HISTORY OF PRESENT ILLNESS: The patient is a 88-year-old female being seen and evaluated for abdominal pain. Her daughter and family friend is at bedside. They provide additional history where she has had poor appetite for most 2 weeks. Patient reports feeling worse today. She is not passing any bowel movement. She reports minimal passage of flatus. She has been seen by oncology regarding presumptive diagnosis of metastatic breast versus colon cancer. Tumor markers have been negative thus far for metastatic. She reports family history of diverticulosis. REVIEW OF ORGAN SYSTEMS: CARDIOVASCULAR: Has atrial fibrillation with hypertensive heart disease and hyperlipidemia. On chronic blood thinners. GASTROINTESTINAL: Prior diarrhea for colonoscopy August 2022 BREAST: History of breast cancer with lumpectomy. PHYSICAL EXAM: VITALS: Reviewed CONSTITUTIONAL: Well developed and in no acute distress. EYES: Conjuctivae without sclera icterus. Extraocular movements grossly intact. HEAD, EARS, NOSE, THROAT: Moist buccal mucosa. Head is atraumatic, normocephalic. Hears conversational speech. No nasal drainage. RESPIRATORY: Non-labored respirations and equal bilateral excursions. No gross wheezes. CARDIOVASCULAR: Palpable 2+ radial pulses. ABDOMEN: No generalized peritonitis. Stable abdominal distention. MUSCULOSKELETAL: No clubbing cyanosis or edema SKIN: Warm and well perfused with good skin turgor. NEUROLOGIC: Cranial nerves II through XII grossly intact. No focal or lateralizing signs. PSYCH: Appropriate affect. Alert and oriented to person, place and time. Displays appropriate insight. CLINCAL LABS: Reviewed. CA 19-9 normal. CEA normal. Severe iron deficiency anemia. WBC elevated 14.1-17.4. Tumma alpha-fetoprotein elevated. TSH elevated over 18 ASSESSMENT: 1. Abdominal pain with distention 2. Hyponatremia 3. History of breast cancer 4. Large bowel obstruction diverticulosis 5. Diverticulosis diverticulitis 6. Abnormal CT scan for malignancy 7. Leukocytosis 8. Severe hypothyroidism PLAN: 1. Oncology consultation reviewed including additional tumor markers and MRIs pending. 2. Patient did take her Eliquis today. Will need at least 3 days off Eliquis prior to surgical intervention. As a result, surgery deferred at least till . Above has been discussed with patient and daughter at bedside. 3. Cardiac risk assessment for pre-existing atrial fibrillation 4. Due to her poor preoperative nutrition, TPN and PICC line for nutritional status 5. Surgical intervention with diverting colostomy and colectomy described Objective - Vital Signs Vital signs: Vital Signs Temp 98.4 F 11/07/23 07:11 Pulse 78 11/07/23 09:36 Resp 16 11/07/23 07:11 BP 126/57 11/07/23 09:36 Pulse Ox 94 L 11/07/23 07:11 FiO2 Intake & Output 11/06/23 11/07/23 11/07/23 18:59 06:59 18:59 Other: Voiding Method Toilet Toilet Toilet # Voids 4 - Labs CBC & Chem 7: 11/07/23 05:35 11/07/23 05:35 Labs: Abnormal Lab Results - Last 24 Hours (Table) 11/05/23 11/05/23 11/06/23 Range/Units 18:01 18:01 03:33 WBC (4.50-10.00) X 10*3/uL RBC (4.10-5.20) X 10*6/uL Hgb (12.0-15.0) g/dL Hct (37.2-46.3) % MCV (80.0-97.0) FL MCH (27.0-32.0) pg Immature Gran # (0.00-0.04) X 10*3/uL Neutrophils # (1.80-7.70) X 10*3/uL Monocytes # (0.20-1.00) X 10*3/uL Eosinophils # (0.04-0.35) X 10*3/uL Carbon Dioxide (21.6-31.8) mmol/L Anion Gap (4.00-12.00) mmol/L BUN/Creatinine Ratio (12.00-20.00) Ratio Calcium (8.7-10.3) mg/dL Total Protein (6.2-8.2) g/dL Albumin (3.8-4.9) g/dL Tumor Marker AFP 12.40 H (0.00-7.90) ng/mL Folate 40.00 H (4.40-31.00) ng/mL TSH 18.300 H (0.465-4.680) mIU/L 07/07/24 07/07/24 Range/Units 05:35 05:35 WBC 17.48 H (4.50-10.00) X 10*3/uL RBC 3.70 L (4.10-5.20) X 10*6/uL Hgb 11.9 L (12.0-15.0) g/dL Hct 36.4 L (37.2-46.3) % MCV 98.4 H (80.0-97.0) FL MCH 32.2 H (27.0-32.0) pg Immature Gran # 0.07 H (0.00-0.04) X 10*3/uL Neutrophils # 13.65 H (1.80-7.70) X 10*3/uL Monocytes # 1.37 H (0.20-1.00) X 10*3/uL Eosinophils # 0.01 L (0.04-0.35) X 10*3/uL Carbon Dioxide 21.2 L (21.6-31.8) mmol/L Anion Gap 12.80 H (4.00-12.00) mmol/L BUN/Creatinine Ratio 21.83 H (12.00-20.00) Ratio Calcium 8.3 L (8.7-10.3) mg/dL Total Protein 4.9 L (6.2-8.2) g/dL Albumin 3.2 L (3.8-4.9) g/dL Tumor Marker AFP (0.00-7.90) ng/mL Folate (4.40-31.00) ng/mL TSH (0.465-4.680) mIU/L Microbiology - Last 24 Hours (Table) 11/05/23 20:50 Blood Culture - Preliminary Blood 11/05/23 20:35 Blood Culture - Preliminary Blood
--- NOTE | 2023-11-07 14:32 | P.PN ---
Subjective Progress Note Date: 11/07/23 Subjective Patient seen and examined at bedside. No acute events overnight. Still passing some flatulence. Pertinent positives and negatives as discussed above, a complete review of systems was performed and all other systems are negative. Vitals: Signs Reviewed Physical Exam: General: nontoxic, no distress, appears at stated age Derm: warm, dry, intact Head: atraumatic, normocephalic, symmetric Eyes: EOMI, no lid lag, anicteric sclera Mouth: no lip lesion, mucus membranes moist Cardiovascular: S1 S2 reg, no murmur, rubs, or gallops Lungs: CTA bilateral, no rhonchi, no rales, no accessory muscle use Abdominal: soft, distended, tender to palpataion, no appreciable organomegaly Extremities: no gross muscle atrophy, no edema, no contractures Neuro: Alert, Oriented, CNII-XII grossly intact Psych: well appearing, appropriate affect Data Received Today: Pertinent Labs: WBC 17.48, hemoglobin 11.9, creatinine 0.6, sodium 139, free T4 1.67 Imaging: No new imaging Assessment and Plan: 88-year-old female with past medical history of IBS, hypothyroid, hypertension, breast cancer, and A-fib presents with abdominal pain associated with constipation Abdominal pain, likely due to partial large bowel obstruction malignancy vs. colitis Multiple hepatic mass lesions Continue n.p.o. diet. Continue IV fluids 75 cc normal saline Intake/output ordered Avoid excessive opiate use for now with moprine 2 mg ivp q4h prn for severe pain General surgery note reviewed, likely surgery on , Eliquis discontinued Follow-up on blood culture For leukocytosis due to suspected colitis. Will continue with empiric Flagyl 500 mg IV q8h for anaerobic coverage. Ordered IV ceftriaxone 2gm for broader coverage of gram-negative bacterial infection Repeat CBC and BMP -Oncology note reviewed, tumor markers pending, MR liver pending Macrocytosis, resolved Hyperglycemia, likely stress-induced Hyponatremia, mild, likely hypovolemic, resolved Hypothyroidism, chronic Continue levothyroxine -Likely has euthyroid sick syndrome Atrial fibrillation, chronic Hold Eliquis, continue metoprolol 25 twice daily amiodarone 200 mg daily Urinary incontinence, chronic Hypertension Hold HCTZ for now. As patient is also on IV fluids -Hold losartan F: N/A E: Replete as needed N: NPO A: fall precautions DVT ppx: Subcu heparin Code status: No code Anticipated discharge place: pending clinical course ANticipated discharge time: Pending clinical course Objective - Vital Signs Vital signs: Vital Signs Temp 98.2 F 11/07/23 13:22 Pulse 68 11/07/23 13:22 Resp 16 11/07/23 13:22 BP 110/67 11/07/23 13:22 Pulse Ox 94 L 11/07/23 13:22 FiO2 Intake & Output 11/06/23 11/07/23 11/07/23 18:59 06:59 18:59 Other: Voiding Method Toilet Toilet Toilet # Voids 4 - Labs CBC & Chem 7: 11/07/23 05:35 11/07/23 05:35 Labs: Abnormal Lab Results - Last 24 Hours (Table) 11/05/23 11/05/23 11/06/23 Range/Units 18:01 18:01 03:33 WBC (4.50-10.00) X 10*3/uL RBC (4.10-5.20) X 10*6/uL Hgb (12.0-15.0) g/dL Hct (37.2-46.3) % MCV (80.0-97.0) FL MCH (27.0-32.0) pg Immature Gran # (0.00-0.04) X 10*3/uL Neutrophils # (1.80-7.70) X 10*3/uL Monocytes # (0.20-1.00) X 10*3/uL Eosinophils # (0.04-0.35) X 10*3/uL Carbon Dioxide (21.6-31.8) mmol/L Anion Gap (4.00-12.00) mmol/L BUN/Creatinine Ratio (12.00-20.00) Ratio Calcium (8.7-10.3) mg/dL Total Protein (6.2-8.2) g/dL Albumin (3.8-4.9) g/dL Tumor Marker AFP 12.40 H (0.00-7.90) ng/mL Folate 40.00 H (4.40-31.00) ng/mL TSH 18.300 H (0.465-4.680) mIU/L 11/07/23 11/07/23 Range/Units 05:35 05:35 WBC 17.48 H (4.50-10.00) X 10*3/uL RBC 3.70 L (4.10-5.20) X 10*6/uL Hgb 11.9 L (12.0-15.0) g/dL Hct 36.4 L (37.2-46.3) % MCV 98.4 H (80.0-97.0) FL MCH 32.2 H (27.0-32.0) pg Immature Gran # 0.07 H (0.00-0.04) X 10*3/uL Neutrophils # 13.65 H (1.80-7.70) X 10*3/uL Monocytes # 1.37 H (0.20-1.00) X 10*3/uL Eosinophils # 0.01 L (0.04-0.35) X 10*3/uL Carbon Dioxide 21.2 L (21.6-31.8) mmol/L Anion Gap 12.80 H (4.00-12.00) mmol/L BUN/Creatinine Ratio 21.83 H (12.00-20.00) Ratio Calcium 8.3 L (8.7-10.3) mg/dL Total Protein 4.9 L (6.2-8.2) g/dL Albumin 3.2 L (3.8-4.9) g/dL Tumor Marker AFP (0.00-7.90) ng/mL Folate (4.40-31.00) ng/mL TSH (0.465-4.680) mIU/L Microbiology - Last 24 Hours (Table) 11/05/23 20:50 Blood Culture - Preliminary Blood 11/05/23 20:35 Blood Culture - Preliminary Blood
[2023-11-07] MEDS: HEPARIN SODIUM,PORCINE 5,000 UNIT/ML 1 ML VIAL SQ SCH (22:07)
--- NOTE | 2023-11-07 22:43 | P.EN ---
notified by RN of heart rate 180 patient feels heart racing but denies trouble breathing, dizziness ,or chest pain. known afib check EKG currently off eliquis in prep for surgery , start heparin gtt for afib BP 97/65 amiodarone bolus 150 mg then start a drip at 1 mg per min for 6 hour then 0.5 mg per min for 18 hours hold oral amiodarone cardiology following transfer to [facility] [employer]
[2023-11-07 23:03] LABS: Basophils # (A) 0.1 k/uL (0-0.2); Basophils % (A) 0 %; Eosinophils # (A) 0.1 k/uL (0-0.7); Eosinophils % (A) 1 %; HCT 39.6 % (34.0-46.0); HGB 12.8 gm/dL (11.4-16.0); Lymphocytes # (A) 2.3 k/uL (1.0-4.8); Lymphocytes % (A) 12 %; MCHC 32.5 g/dL (31.0-37.0); MCV 101.7 fL (80.0-100.0); Macrocytosis Slight; Mean Platelet Volume 8.2; Monocytes % (A) 5 %; Neutrophils # (A) 14.8 k/uL (1.3-7.7); Neutrophils % (A) 79 %; Platelet Count 353 k/uL (150-450); RBC 3.89 m/uL (3.80-5.40); RDW 13.6 % (11.5-15.5); WBC 18.7 k/uL (3.8-10.6)
[2023-11-07 23:13] LABS: INR 1.1 (<1.2); Partial Thromboplastin Time 31.9 sec (22.0-30.0); Prothrombin Time 11.7 sec (10.0-12.5)
[2023-11-08] MEDS: HEPARIN SOD,PORK IN 0.45% NACL 25,000 UNIT in 0.45% NACL 1 250ML.BAG IV SCH (00:46)
[2023-11-08] MEDS: HEPARIN SODIUM 1,000 UN/ML (10ML VL) IV ONE (00:46)
[2023-11-08] MEDS: DEXTROSE 5% IN WATER 100 ML with AMIODARONE 150 MG IV ONE (00:46)
[2023-11-08] MEDS: AMIODARONE 360 MG in DEXTROSE 5% IN WATER 200 ML IV ONE (00:46)
[2023-11-08] MEDS: AMIODARONE 450 MG in DEXTROSE 5% IN WATER 250 ML IV SCH (01:22)
[2023-11-08] MEDS: AMIODARONE 200 MG TAB PO SCH (10:07)
[2023-11-08 10:43] LABS: Basophils # (A) 0.04 X 10*3/uL (0.00-0.10); Basophils % (A) 0.2 %; Eosinophils # (A) 0.02 X 10*3/uL (0.04-0.35); Eosinophils % (A) 0.1 %; HCT 36.8 % (37.2-46.3); HGB 11.9 g/dL (12.0-15.0); Lymphocytes # (A) 2.82 X 10*3/uL (0.90-5.00); Lymphocytes % (A) 15.9 %; MCH 32.4 pg (27.0-32.0); MCHC 32.3 g/dL (32.0-37.0); MCV 100.3 FL (80.0-97.0); Mean Platelet Volume 10.6 FL (9.5-12.2); Monocytes # (A) 1.41 X 10*3/uL (0.20-1.00); NRBC Per 100 WBC 0 X 10*3/uL (0.00-0.01); Neutrophils # (A) 13.34 X 10*3/uL (1.80-7.70); Neutrophils % (A) 75.4 %; Platelet Count 325 X 10*3/uL (140-440); RBC 3.67 X 10*6/uL (4.10-5.20); RDW 14.4 % (11.5-14.5)
[2023-11-08 10:53] LABS: BUN/Creat Ratio 23.29 Ratio (12.00-20.00); Blood Urea Nitrogen 16.3 mg/dL (9.0-27.0); Calcium 7.9 mg/dL (8.7-10.3); Carbon Dioxide 20.8 mmol/L (21.6-31.8); Chloride 105 mmol/L (96-109); Glucose 76 mg/dL (70-110); Potassium 3.9 mmol/L (3.5-5.5); Sodium 139 mmol/L (135-145)
--- NOTE | 2023-11-08 12:09 | P.CRDCN ---
History of Present Illness History of present illness: HISTORY OF PRESENT ILLNESS: This is a 88-year-old female with a past medical history significant for atrial fibrillation, SVT, hypertension, hyperlipidemia, and hypothyroidism. Patient fo llows in the office with Dr. Holloway. We have been asked to see the patient in consultation for cardiac risk assessment. Patient examined at the bedside. Patient states she presented to the hospital after not having a bowel movement for 11 days. She has been seen by general surgery and is scheduled to undergo open sigmoid colectomy with colostomy on 11/11/[address] Cedeno. Patient currently denies any chest pain or pressure. She denies any shortness of breath. Apparently, overnight the patient went tachycardic and she was prescribed IV heparin and IV amiodarone and transferred to [facility]. She converted to sinus mechanism and is maintaining sinus mechanism at the time of examination. DIAGNOSTICS: - Telemetry currently reveals sinus mechanism - Laboratory data: WBC 17.7. Hemoglobin 11.9. Platelet count 325. Sodium 139. Potassium 3.9. BUN 16. Creatinine 0.7. TSH 18.3. Free T41.67. - Current home cardiac medications include amiodarone 200 mg daily, metoprolol tartrate 25 mg twice a day, Lipitor 20 mg daily, Eliquis 5 mg twice a day. - Most recent echocardiogram obtained in July 2022 revealed ejection fraction 52%, mild aortic stenosis, mild mitral regurgitation, mild tricuspid regurgitation REVIEW OF SYSTEMS: At the time of my exam: CONSTITUTIONAL: Denies fever or chills. HEENT: Denies blurred vision, vision changes, or eye pain. Denies hemoptysis CARDIOVASCULAR: Denies chest pain. Denies orthopnea. Denies PND. Denies palpitations RESPIRATORY: Denies shortness of breath. GASTROINTESTINAL: Denies abdominal pain. Denies nausea or vomiting. HEMATOLOGIC: Denies bleeding disorders. GENITOURINARY: Denies any blood in urine. SKIN: Denies pruitis. Denies rash. PHYSICAL EXAM: VITAL SIGNS: Reviewed. GENERAL: Well-developed in no acute distress. HEENT: Head is normocephalic. Pupils are equal, round. Sclerae anicteric. Mucous membranes of the mouth are moist. Neck supple. No JVD or thyromegaly LUNGS: Respirations even and unlabored. Lungs essentially clear to auscultation bilaterally. HEART: Regular rate and rhythm. S1 and S2 heard. ABDOMEN: Soft. Nondistended. Nontender. EXTREMITIES: Normal range of motion. No clubbing or cyanosis. Peripheral pulses intact. No lower extremity edema NEUROLOGIC: Awake and alert. Oriented x 3. ASSESSMENT: Bowel obstruction, scheduled for surgical intervention 11/11/2023 Multiple hepatic lesions, MRI pending Paroxysmal atrial fibrillation History of cardioversion, 2022 Hypertension Hyperlipidemia History of paroxysmal SVT Hypothyroidism PLAN: Continue current cardiac medications Eliquis remains on hold for surgical intervention. Begin IV heparin in the interim. Continue telemetry monitoring Obtain 2D echo to assess cardiac structure and function There are no absolute contraindications for patient to proceed with surgery from a cardiac standpoint Further recommendations pending patient course Nurse practitioner note has been reviewed by physician. Signing provider agrees with the documented findings, assessment, and plan of care documented by [employer] TECHNICIAN as a scribe. Past Medical History Past Medical History: Atrial Fibrillation, Cancer, Hyperlipidemia, Hypertension Additional Past Medical History / Comment(s): breast CA 1987, chroic back pain History of Any Multi-Drug Resistant Organisms: ESBL Date of last positivie culture/infection: 05/04/19-ESBL E.coli MDRO Source:: Urine Past Surgical History: Orthopedic Surgery Additional Past Surgical History / Comment(s): lumpectomy. BILAT KNEE REPL. BILAT CATARACT REM Past Anesthesia/Blood Transfusion Reactions: No Reported Reaction Past Psychological History: No Psychological Hx Reported Smoking Status: Never smoker Past Alcohol Use History: Daily Past Drug Use History: None Reported Medications and Allergies Home Medications Medication Instructions Recorded Confirmed Type Amiodarone HCl [Pacerone] 200 mg PO DAILY 05/19/22 11/05/23 History Apixaban [Eliquis] 5 mg PO BID 05/19/22 11/05/23 History Atorvastatin [Lipitor] 20 mg PO DAILY 05/19/22 11/05/23 History Calcium Carbonate [Calcium] 600 mg PO HS 05/19/22 11/05/23 History Cholecalciferol [Vitamin D3 (25 25 mcg PO HS 05/19/22 11/05/23 History Mcg = 1000 Iu)] Cyanocobalamin (Vitamin B-12) 1,000 mcg PO Q7D 05/19/22 11/05/23 History [Vitamin B-12] Levothyroxine Sodium [Synthroid] 100 mcg PO DAILY 05/19/22 11/05/23 History Losartan/Hydrochlorothiazide 1 tab PO DAILY 05/19/22 11/05/23 History [Losartan-Hctz 50-12.5 mg Tab] Multivit-Min/FA/Lycopen/Lutein 1 tab PO HS 05/19/22 11/05/23 History [Centrum Silver Tablet] Omeprazole [PriLOSEC] 20 mg PO DAILY 05/19/22 11/05/23 History Metoprolol Tartrate 25 mg PO BID 09/14/22 11/05/23 History Acetaminophen Tab [Tylenol Tab] 1,000 mg PO BID 11/05/23 11/05/23 History HYDROcodone/APAP 5-325MG [[place] 1 tab PO BID PRN 11/05/23 11/05/23 History 5-325] Magnesium Hydroxide [Milk of 2,400 mg PO DAILY PRN 11/05/23 11/05/23 History Magnesia] Mirabegron [Myrbetriq] 50 mg PO DAILY 11/05/23 11/05/23 History Super B Complex 1 tab PO Q7D 11/05/23 11/05/23 History traMADol HCL 50 mg PO TID PRN 11/05/23 11/05/23 History Allergies Allergy/AdvReac Type Severity Reaction Status Date / Time No Known Allergies Allergy Verified 11/05/23 18:15 Physical Exam Vitals: Vital Signs Temp Pulse Resp BP Pulse Ox 11/08/23 11:27 66 16 134/89 96 11/08/23 09:59 97.8 F 68 18 143/63 97 11/08/23 04:00 69 16 118/65 96 11/08/23 00:21 67 18 116/56 98 11/07/23 23:34 97.9 F 168 H 24 112/72 94 L 11/07/23 22:31 98.5 F 185 H 20 96/69 92 L 11/07/23 19:42 99.1 F 135 H 18 127/80 92 L 11/07/23 13:22 98.2 F 68 16 110/67 94 L Intake and Output 11/07/23 11/08/23 11/08/23 22:59 06:59 14:59 Other: Voiding Method Toilet # Voids 8 2 Weight 63.7 kg Results 11/08/23 05:43 11/08/23 05:43 Coagulation 11/07/23 11/08/23 Range/Units 22:50 05:43 PT 11.7 (10.0-12.5) sec APTT 31.9 H 31.5 H (22.0-30.0) sec CBC 11/07/23 11/08/23 Range/Units 22:50 05:43 WBC 18.7 H 17.70 H (3.8-10.6) k/uL RBC 3.89 3.67 L (3.80-5.40) m/uL Hgb 12.8 11.9 L (11.4-16.0) gm/dL Hct 39.6 36.8 L (34.0-46.0) % Plt Count 353 325 (150-450) k/uL Comprehensive Metabolic Panel 11/08/23 Range/Units 05:43 Sodium 139 (135-145) mmol/L Potassium 3.9 (3.5-5.5) mmol/L Chloride 105 (96-109) mmol/L Carbon Dioxide 20.8 L (21.6-31.8) mmol/L BUN 16.3 (9.0-27.0) mg/dL Creatinine 0.7 (0.6-1.5) mg/dL Glucose 76 (70-110) mg/dL Calcium 7.9 L (8.7-10.3) mg/dL Current Medications Generic Name Dose Route Start Last Admin Trade Name Freq PRN Reason Stop Dose Admin Hydrocodone Bitart/Acetaminophen 1 each 11/05/23 23:23 11/08/23 05:24 Hydrocodone/Apap 5-325mg 1 Each Tab PO 1 each BID PRN Administration Pain Amiodarone HCl 200 mg 11/08/23 09:00 11/08/23 10:07 Amiodarone 200 Mg Tab PO 200 mg DAILY SARAH Administration Atorvastatin Calcium 20 mg 11/06/23 09:00 11/08/23 10:07 Atorvastatin 20 Mg Tab PO 20 mg DAILY SARAH Administration Docusate Sodium 100 mg 11/06/23 20:05 11/07/23 09:35 Docusate 100 Mg Cap PO 100 mg DAILY PRN Administration Constipation Heparin Sodium (Porcine) 0 unit 11/07/23 22:39 Heparin Sodium 1,000 Un/Ml (10ml Vl) IV PER PROTOCOL PRN Low PTT Protocol Sodium Chloride 1,000 mls @ 75 mls/hr 11/05/23 20:15 11/08/23 00:53 Saline 0.9% IV Not Given .[id number] SARAH Metronidazole 500 mg/ IV 100 mls @ 100 mls/hr 11/06/23 00:00 11/08/23 10:06 Solution IVPB 100 mls/hr Q8HR SARAH Administration Protocol Ceftriaxone Sodium 2 gm/ 50 mls @ 100 mls/hr 11/06/23 11:00 11/08/23 10:15 Sodium Chloride IVPB 100 mls/hr Q24HR SARAH Administration Protocol Heparin Sodium/Sodium Chloride 250 mls @ 7.348 mls/hr 11/07/23 22:45 11/08/23 00:46 25,000 unit/ Sodium Chloride IV Not Given .Q24H SARAH Protocol 12 UNITS/KG/HR Levothyroxine Sodium 100 mcg 11/06/23 06:30 11/08/23 05:24 Levothyroxine 100 Mcg Tab PO 100 mcg DAILY@0630 SARAH Administration Metoprolol Tartrate 25 mg 11/06/23 09:00 11/08/23 10:07 Metoprolol Tartrate 25 Mg Tab PO 25 mg BID SARAH Administration Morphine Sulfate 2 mg 11/05/23 20:12 11/08/23 01:47 Morphine Sulfate 4 Mg/Ml Syringe IV 2 mg Q4HR PRN Administration Severe Pain (Scale 7 to 10) Naloxone HCl 0.2 mg 11/05/23 20:12 Naloxone 0.4 Mg/Ml 1 Ml Vial IV Q2M PRN Opioid Reversal Ondansetron HCl 4 mg 11/05/23 20:12 Ondansetron 4 Mg/2 Ml Vial IVP Q8HR PRN Nausea And Vomiting Pantoprazole Sodium 40 mg 11/06/23 09:00 11/08/23 10:07 Pantoprazole 40 Mg Tablet PO 40 mg DAILY SARAH Administration Intake and Output 11/07/23 11/08/23 11/08/23 22:59 06:59 14:59 Other: Voiding Method Toilet # Voids 8 2 Weight 63.7 kg 11/08/23 05:43 11/08/23 05:43
--- NOTE | 2023-11-08 13:17 | CA ---
Transthoracic Echo Report Name: Melody Bailey Age: 88 Gender: F : 1935 Exam Date: 11/08/2023 09:45 Exam Location: [place] [facility] Ht (in): 61 Wt (lb): 135 Ordering Physician: Chanel Cedeno MD Attending/Referring Phys: Pao DYKES Senior Sales Executive Alayna Balderas RDCS Procedure CPT: Indications: atrial fibrillation Cardiac Hx: Technical Quality: Fair Contrast 1: Total Dose (mL): Contrast 2: Total Dose (mL): MEASUREMENTS (Male / Female) Normal Values 2D ECHO LV Diastolic Diameter PLAX 5.0 cm 4.2 - 5.9 / 3.9 - 5.3 cm LV Systolic Diameter PLAX 4.3 cm IVS Diastolic Thickness 1.1 cm 0.6 - 1.0 / 0.6 - 0.9 cm LVPW Diastolic Thickness 1.2 cm 0.6 - 1.0 / 0.6 - 0.9 cm LV Relative Wall Thickness 0.4 RV Internal Dim ED PLAX 3.0 cm LVOT Diameter 2.2 cm LA Systolic Diameter LX 4.1 cm 3.0 - 4.0 / 2.7 - 3.8 cm LV Diastolic Volume MOD 4C 128.2 cm??? LV Systolic Volume MOD 4C 81.6 cm??? LV Ejection Fraction MOD 4C 36.3 % LV Cardiac Index MOD 4C 1819.2 cm???/min???m??? LV Diastolic Length 4C 7.1 cm LV Systolic Length 4C 6.2 cm LV Diastolic Volume MOD 2C 129.8 cm??? LV Systolic Volume MOD 2C 83.5 cm??? LV Ejection Fraction MOD 2C 35.6 % LV Cardiac Index MOD 2C 1808.7 cm???/min???m??? LV Diastolic Length 2C 7.8 cm LV Systolic Length 2C 6.6 cm LA Volume 107.0 cm??? 18 - 58 / 22 - 52 cm??? LA Volume Index 65.4 cm???/m??? 16 - 28 cm???/m??? M-MODE Aortic Root Diameter MM 3.0 cm AV Cusp Separation MM 1.2 cm DOPPLER AV Peak Velocity 203.0 cm/s AV Peak Gradient 16.5 mmHg AV Mean Velocity 142.8 cm/s AV Mean Gradient 9.2 mmHg AV Velocity Time Integral 48.1 cm LVOT Peak Velocity 0.1 cm/s LVOT Peak Gradient 0.0 mmHg AV Area Cont Eq pk 0.0 cm??? MV Area PHT 4.4 cm??? Mitral E Point Velocity 112.8 cm/s Mitral A Point Velocity 52.9 cm/s Mitral E to A Ratio 2.1 MV Deceleration Time 170.9 ms FINDINGS Left Ventricle Left ventricular ejection fraction is estimated at 35-40 %. Mildly increased septal wall thickness. Mildly increased posterior wall thickness. Left ventricular cavity size normal. Moderately reduced global left ventricular systolic function. Right Ventricle Normal right ventricular size. Unable to estimate the right ventricular systolic pressure. Right Atrium Normal right atrial size. No right atrial thrombus or mass seen. Left Atrium Mildly increased left atrial diameter. Severely increased left atrial volume. Mildly increased left atrial area. Mitral Valve Mitral valve thickened. Mitral annular calcification. Mild mitral regurgitation. Aortic Valve Aortic valve sclerosis. Mild aortic stenosis with a peak gradient of 17 mmHg and a mean gradient of 9 mmHg. Tricuspid Valve Structurally normal tricuspid valve. No tricuspid stenosis, regurgitation or prolapse. Pulmonic Valve Structurally normal pulmonic valve. Trace pulmonic regurgitation. Pericardium No pericardial effusion. Aorta Normal size aortic root and proximal ascending aorta. CONCLUSIONS Left ventricular ejection fraction 35-40% Mildly increased left ventricular wall thickness Moderately dilated left HU Mild mitral regurgitation Mild aortic stenosis No pericardial effusion Previewed by: Dr. Dereck Cesar DO (Electronically Signed) Final Date: 08 November 2023 13:16
--- NOTE | 2023-11-08 14:06 | P.PN ---
Subjective Progress Note Date: 11/08/23 Subjective Patient seen and examined at bedside. Last night patient went A-fib with heart rate over 180 she was given IV heparin drip and IV amiodarone. She was transferred to for further cardiac monitoring. This morning patient is feels better. Still has not had a bowel movement. Still NPO. States barely passing any flatulence. Pertinent positives and negatives as discussed above, a complete review of systems was performed and all other systems are negative. Vitals: Signs Reviewed Physical Exam: General: nontoxic, no distress, appears at stated age Derm: warm, dry, intact Head: atraumatic, normocephalic, symmetric Eyes: EOMI, no lid lag, anicteric sclera Mouth: no lip lesion, mucus membranes moist Cardiovascular: S1 S2 reg, no murmur, rubs, or gallops Lungs: CTA bilateral, no rhonchi, no rales, no accessory muscle use Abdominal: soft, distended, tender to palpataion, no appreciable organomegaly Extremities: no gross muscle atrophy, no edema, no contractures Neuro: Alert, Oriented, CNII-XII grossly intact Psych: well appearing, appropriate affect Data Received Today: Pertinent Labs: WBC 17.7, Hgb 11.9, sodium 139, creatinine 0.7, AFP 12.4 Imaging: EKG: sinus rhythm on independent interpretation Echocardiogram doppler: left ventricular ejection fraction 35 to 40%. Mildly increased left ventricular wall thickness. Mild mitral regurgitation. Mild aortic stenosis. No pericardial effusion. Assessment and Plan: 88-year-old female with past medical history of IBS, hypothyroid, hypertension, breast cancer, and A-fib presents with abdominal pain associated with constipation Abdominal pain, likely due to partial large bowel obstruction malignancy vs. colitis Multiple hepatic mass lesions - Continue n.p.o. diet. Continue IV fluids 75 cc normal saline -Intake/output ordered -Avoid excessive opiate use for now with moprine 2 mg ivp q4h prn for severe pain -General surgery following, likely surgery on , Eliquis discontinued -Follow-up on blood culture - For leukocytosis due to suspected colitis. Will continue with empiric Flagyl 500 mg IV q8h for anaerobic coverage, IV ceftriaxone 2gm for broader coverage of gram-negative bacterial infection - Repeat CBC and BMP -Oncology following, elevated AFP 12.4, other tumor markers WNL. CA 27-29 pending -MRI liver scheulded today, pending results Atrial fibrillation w/ rvr, now rate controlled Had episode of A-fib with RVR. heart rate >180. Was transferred to for further cardiac assessment Hold Eliis for scheduled surgery. Patient on IV heparin drip, monitor APTT, monitor for bleeding Continue 200 mg amiodarone p.o. daily Monitoring on telemetry Cardiology note reviewed. 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 Mildly increased left ventricular wall thickness Mild mitral regur gitation. Mild aortic stenosis. No pericardial effusion. Patient appears euvolemic Metoprolol tartrate 25 mg PO twice daily Macrocytosis, resolved Hyperglycemia, likely stress-induced Hyponatremia, mild, likely hypovolemic, resolved Hypothyroidism, chronic Continue levothyroxine -Likely has euthyroid sick syndrome Urinary incontinence, chronic Hypertension Hold HCTZ for now. As patient is also on IV fluids -Hold losartan Dyslipidemia - Atorvastatin 20 mg PO F: N/A E: Replete as needed N: NPO A: fall precautions DVT ppx: Heparin drip Code status: No code Anticipated discharge place: pending clinical course Anticipated discharge time: pending clinical course I have seen and evaluated the patient today. Discussed with the resident and agree with the residents finding and plan as documented in the resident's note. Changes highlighted in blue font. Objective - Vital Signs Vital signs: Vital Signs Temp 97.8 F 11/08/23 09:59 Pulse 66 11/08/23 11:27 Resp 16 11/08/23 11:27 BP 134/89 11/08/23 11:27 Pulse Ox 96 11/08/23 11:27 FiO2 Intake & Output 11/07/23 11/08/23 11/08/23 18:59 06:59 18:59 Weight 63.7 kg Other: Voiding Method Toilet Toilet # Voids 8 2 - Labs CBC & Chem 7: 11/08/23 05:43 11/08/23 05:43 Labs: Abnormal Lab Results - Last 24 Hours (Table) 11/07/23 11/07/23 11/08/23 Range/Units 22:50 22:50 05:43 WBC 18.7 H (3.8-10.6) k/uL RBC (4.10-5.20) X 10*6/uL Hgb (12.0-15.0) g/dL Hct (37.2-46.3) % MCV 101.7 H (80.0-100.0) fL MCH (27.0-32.0) pg Immature Gran # (0.00-0.04) X 10*3/uL Neutrophils # 14.8 H (1.3-7.7) k/uL Monocytes # (0.20-1.00) X 10*3/uL Eosinophils # (0.04-0.35) X 10*3/uL APTT 31.9 H (22.0-30.0) sec Carbon Dioxide 20.8 L (21.6-31.8) mmol/L Anion Gap 13.20 H (4.00-12.00) mmol/L BUN/Creatinine Ratio 23.29 H (12.00-20.00) Ratio Calcium 7.9 L (8.7-10.3) mg/dL 11/08/23 11/08/23 Range/Units 05:43 05:43 WBC 17.70 H (3.8-10.6) k/uL RBC 3.67 L (4.10-5.20) X 10*6/uL Hgb 11.9 L (12.0-15.0) g/dL Hct 36.8 L (37.2-46.3) % MCV 100.3 H (80.0-100.0) fL MCH 32.4 H (27.0-32.0) pg Immature Gran # 0.07 H (0.00-0.04) X 10*3/uL Neutrophils # 13.34 H (1.3-7.7) k/uL Monocytes # 1.41 H (0.20-1.00) X 10*3/uL Eosinophils # 0.02 L (0.04-0.35) X 10*3/uL APTT 31.5 H (22.0-30.0) sec Carbon Dioxide (21.6-31.8) mmol/L Anion Gap (4.00-12.00) mmol/L BUN/Creatinine Ratio (12.00-20.00) Ratio Calcium (8.7-10.3) mg/dL Microbiology - Last 24 Hours (Table) 11/05/23 20:50 Blood Culture - Preliminary Blood 11/05/23 20:35 Blood Culture - Preliminary Blood
--- NOTE | 2023-11-08 19:34 | P.PN ---
Subjective Progress Note Date: 11/08/23 CHIEF COMPLAINT: Abdominal pain with distention HISTORY OF PRESENT ILLNESS: The patient is a 88-year-old female admitted with abdominal distention including abdominal pain. Diagnostic studies demonstrated large bowel obstruction. Patient reports that she is not passing flatus or have been bowel movement. She reports increased abdominal distention. She is pending a PICC line placement for TPN. Overnight patient did have a cardiac event with atrial fibrillation RVR but placed on heparin drip. Her daughter is at bedside, Talia. REVIEW OF ORGAN SYSTEMS: CARDIOVASCULAR: Has atrial fibrillation with hypertensive heart disease and hyperlipidemia. On chronic blood thinners. GASTROINTESTINAL: Prior diarrhea for colonoscopy August 2022 BREAST: History of breast cancer with lumpectomy. PHYSICAL EXAM: VITALS: Reviewed CONSTITUTIONAL: Well developed and in no acute distress. EYES: Conjuctivae without sclera icterus. Extraocular movements grossly intact. HEAD, EARS, NOSE, THROAT: Moist buccal mucosa. Head is atraumatic, normocephalic. Hears conversational speech. No nasal drainage. RESPIRATORY: Non-labored respirations and equal bilateral excursions. No gross wheezes. CARDIOVASCULAR: Palpable 2+ radial pulses. ABDOMEN: No generalized peritonitis. Stable abdominal distention. MUSCULOSKELETAL: No clubbing cyanosis or edema SKIN: Warm and well perfused with good skin turgor. NEUROLOGIC: Cranial nerves II through XII grossly intact. No focal or lateralizing signs. PSYCH: Appropriate affect. Alert and oriented to person, place and time. Displays appropriate insight. CLINCAL LABS: Reviewed. WBC elevated over 17,000. STUDIES: MRI of the liver independent review demonstrate multiple solid cystic lesions on the liver. This is my independent interpretation. REPORTS: Echocardiogram reviewed demonstrates ejection fraction less than 55%. ASSESSMENT: 1. Abdominal pain with distention 2. Hyponatremia 3. History of breast cancer 4. Large bowel obstruction diverticulosis 5. Diverticulosis diverticulitis 6. Abnormal CT scan for malignancy 7. Leukocytosis 8. Severe hypothyroidism 9. Atrial fibrillation with rapid ventricular response PLAN: 1. Will need maximal medical including cardiac optimization. 2. Patient reports poor appetite for over a week. TPN and PICC line ordered for nutritional optimization. 3. Due to echo report demonstrating depressed left ventricular function and recent atrial fibrillation rapid ventricular response, open colectomy and ostomy was described to the patient and her daughter at bedside Talia. 4. At this time, still pending PICC line for TPN. Family made aware surgical intervention pending during this hospitalization as patient is being optimized for surgery 5. Daughter's telephone number Talia [phone] for update 6. Care plan reviewed with all questions addressed with patient and daughter. Objective - Vital Signs Vital signs: Vital Signs Temp 97.8 F 11/08/23 09:59 Pulse 68 11/08/23 16:00 Resp 16 11/08/23 16:00 BP 130/61 11/08/23 16:00 Pulse Ox 94 L 11/08/23 16:00 FiO2 Intake & Output 11/08/23 11/08/23 11/09/23 06:59 18:59 06:59 Weight 63.7 kg Other: Voiding Method Toilet # Voids 2 1 - Labs CBC & Chem 7: 11/08/23 05:43 11/08/23 05:43 Labs: Abnormal Lab Results - Last 24 Hours (Table) 11/06/23 11/07/23 11/07/23 Range/Units 03:33 22:50 22:50 WBC 18.7 H (3.8-10.6) k/uL RBC (4.10-5.20) X 10*6/uL Hgb (12.0-15.0) g/dL Hct (37.2-46.3) % MCV 101.7 H (80.0-100.0) fL MCH (27.0-32.0) pg Immature Gran # (0.00-0.04) X 10*3/uL Neutrophils # 14.8 H (1.3-7.7) k/uL Monocytes # (0.20-1.00) X 10*3/uL Eosinophils # (0.04-0.35) X 10*3/uL APTT 31.9 H (22.0-30.0) sec Carbon Dioxide (21.6-31.8) mmol/L Anion Gap (4.00-12.00) mmol/L BUN/Creatinine Ratio (12.00-20.00) Ratio Calcium (8.7-10.3) mg/dL RBC Folate 828 H (280 - 791) ng/mL 11/08/23 11/08/23 11/08/23 Range/Units 05:43 05:43 05:43 WBC 17.70 H (3.8-10.6) k/uL RBC 3.67 L (4.10-5.20) X 10*6/uL Hgb 11.9 L (12.0-15.0) g/dL Hct 36.8 L (37.2-46.3) % MCV 100.3 H (80.0-100.0) fL MCH 32.4 H (27.0-32.0) pg Immature Gran # 0.07 H (0.00-0.04) X 10*3/uL Neutrophils # 13.34 H (1.3-7.7) k/uL Monocytes # 1.41 H (0.20-1.00) X 10*3/uL Eosinophils # 0.02 L (0.04-0.35) X 10*3/uL APTT 31.5 H (22.0-30.0) sec Carbon Dioxide 20.8 L (21.6-31.8) mmol/L Anion Gap 13.20 H (4.00-12.00) mmol/L BUN/Creatinine Ratio 23.29 H (12.00-20.00) Ratio Calcium 7.9 L (8.7-10.3) mg/dL RBC Folate (280 - 791) ng/mL Microbiology - Last 24 Hours (Table) 11/05/23 20:50 Blood Culture - Preliminary Blood 11/05/23 20:35 Blood Culture - Preliminary Blood
[2023-11-09 11:43] LABS: Basophils % (A) 0 %; Eosinophils % (A) 0 %; HCT 43.3 % (34.0-46.0); HGB 12.9 gm/dL (11.4-16.0); Hypochromasia Slight; Lymphocytes # (A) 2.4 k/uL (1.0-4.8); Lymphocytes % (A) 12 %; MCH 31.6 pg (25.0-35.0); MCHC 29.8 g/dL (31.0-37.0); MCV 106.1 fL (80.0-100.0); Macrocytosis Moderate; Mean Platelet Volume 8.4; Monocytes # (A) 1.2 k/uL (0-1.0); Monocytes % (A) 6 %; Neutrophils # (A) 16.3 k/uL (1.3-7.7); Neutrophils % (A) 80 %; Platelet Count 529 k/uL (150-450); RBC 4.08 m/uL (3.80-5.40); RDW 13.2 % (11.5-15.5); WBC 20.3 k/uL (3.8-10.6)
[2023-11-09 11:54] LABS: ALT 12 U/L (4-34); AST 24 U/L (14-36); African American GFR (CKD) >90 (>60 ml/min/1.73 sqM); Albumin 2.7 g/dL (3.5-5.0); Alkaline Phosphatase 94 U/L (38-126); Anion Gap 18 mmol/L; Blood Urea Nitrogen 15 mg/dL (7-17); Calcium 7.6 mg/dL (8.4-10.2); Carbon Dioxide 10 mmol/L (22-30); Chloride 112 mmol/L (98-107); Glucose 62 mg/dL (74-99); Magnesium 2.2 mg/dL (1.6-2.3); Non-African American GFR(CKD) 82 (>60 ml/min/1.73 sqM); Potassium 3.2 mmol/L (3.5-5.1); Sodium 140 mmol/L (137-145); Total Bilirubin 0.6 mg/dL (0.2-1.3); Total Protein 4.9 g/dL (6.3-8.2)
--- NOTE | 2023-11-09 12:03 | XR ---
EXAMINATION TYPE: XR chest 1V portable DATE OF EXAM: 11/09/2023 11:51 AM CLINICAL INDICATION:Female, 88 years old with history of PICC line confirmation; COMPARISON: Chest radiographs from 10/17/2018 TECHNIQUE: XR chest 1V portable Frontal view of the chest. FINDINGS: Lungs/Pleura: No evidence of focal consolidation or pneumothorax. Blunting of the costophrenic angles is present. Pulmonary vascularity: Unremarkable. Heart/mediastinum: Cardiomediastinal silhouette is unremarkable. Musculoskeletal: No acute osseous pathology. Other findings: None Lines/Tubes: Right-sided PICC line with distal tip at the cavoatrial junction. IMPRESSION: Right PICC in appropriate placement. COPD. Possible trace bilateral pleural effusions.
--- NOTE | 2023-11-09 12:53 | MR ---
EXAMINATION TYPE: MR liver wo/w con DATE OF EXAM: 11/08/2023 3:49 PM CLINICAL INDICATION:Female, 88 years old with history of Liver lesions on CT a/p, concern for maligna ncy, Liver lesions on CT a/p, concern for malignancy. COMPARISON: CT scan abdomen from 11/05/2023. TECHNIQUE: Multiplanar multi-sequence imaging was performed without contrast. Post contrast imaging was performed. Post IV contrast subtraction images were also submitted for review. IV Contrast: 6 cc Gadavist FINDINGS: LOWER CHEST: Tracer left and small right pleural effusion. ABDOMEN Liver: No evidence for hepatic steatosis or cirrhosis. There are greater than 10 lesions which demons trate enhancement patterns most suggestive of neoplastic process on postcontrast imaging. Gallbladder and Bile ducts: Markedly distended gallbladder lumen measuring 10.5 x 8.0 cm. No evidence for ductal dilation, or biliary stricture or evidence of choledocholithiasis. The gallbladder is wit hin normal limits. Pancreas: No ductal dilation. No evidence for solid mass. Spleen: Normal for size. Adrenal glands: Unremarkable. Kidneys: No evidence for obstructive uropathy. No suspicious renal masses. Stomach and Bowel: No evidence for bowel wall thickening or evidence for obstruction. Wall thickening in the sigmoid colon is less well appreciated on this exam and not entirely in the [id number]. Ga seous distention of large bowel as seen on CT. Retroperitoneum/Peritoneum: No evidence of pneumoperitoneum or free fluid. There remains a mesenteri c partially calcified lesion with possible desmoplastic reaction in the right lower quadrant. Unclear if this is sequela prior surgery and/or remote inflammation or underlying mass. Vasculature: No aortic aneurysm. Musculoskeletal: The osseous structures appear intact., Scoliosis changes throughout the spine. Lymph Nodes: No gross evidence for lymphadenopathy. Abdominal wall: Unremarkable. IMPRESSION: 1. Multiple liver lesions concerning for metastatic disease possibly gastrointestinal in origin give n prior CT 11/05/2023. Finding could be secondary to mesenteric mass with tethering of multiple loops o f bowel. Such as a carcinoid tumor versus gastrointestinal adenocarcinoma of wall thickening possibly in this sigmoid colon. Given gaseous distention and possible metastatic disease and wall thickening. Colonoscopy should be considered throughout stricture/mass in the sigmoid colon. 2. Markedly distended gallbladder lumen correlate for signs and symptoms of cholecystitis.
[2023-11-09] MEDS: POTASSIUM CHLORIDE ER 20 MEQ TAB.ER PO STA (13:04)
[2023-11-09 13:19] LABS: VBG PH 7.35 (7.31-7.41)
--- NOTE | 2023-11-09 13:33 | P.PN ---
Subjective HISTORY OF PRESENT ILLNESS: This is a 88-year-old female with a past medical history significant for atrial fibrillation, SVT, hypertension, hyperlipidemia, and hypothyroidism. Patient follows in the office with Dr. Holloway. We have been asked to see the patient in consultation for cardiac risk assessment. Patient examined at the bedside. Patient states she presented to the hospital after not having a bowel movement for 11 days. She has been seen by general surgery and is scheduled to undergo open sigmoid colectomy with colostomy on 11/11/[address] eCdeno. Patient currently denies any chest pain or pressure. She denies any shortness of breath. Apparently, overnight the patient went tachycardic and she was prescribed IV heparin and IV amiodarone and transferred to [facility]. She converted to sinus mechanism and is maintaining sinus mechanism at the time of examination. DIAGNOSTICS: - Telemetry currently reveals sinus mechanism - Laboratory data: WBC 17.7. Hemoglobin 11.9. Platelet count 325. Sodium 139. Potassium 3.9. BUN 16. Creatinine 0.7. TSH 18.3. Free T41.67. - Current home cardiac medications include amiodarone 200 mg daily, metoprolol tartrate 25 mg twice a day, Lipitor 20 mg daily, Eliquis 5 mg twice a day. - Most recent echocardiogram obtained in July 2022 revealed ejection fraction 52%, mild aortic stenosis, mild mitral regurgitation, mild tricuspid regurgitation 11/09/2023 Patient examined this morning at the bedside. Patient currently denies chest pain or pressure. She denies shortness of breath. She remains in atrial fibrillation with decently controlled ventricular rates. Echocardiogram c ompleted revealing ejection fraction 35 to 40%, mild MR, mild PHYSICAL EXAM: VITAL SIGNS: Reviewed. GENERAL: Well-developed in no acute distress. HEENT: Head is normocephalic. Pupils are equal, round. Sclerae anicteric. Mucous membranes of the mouth are moist. Neck supple. No JVD or thyromegaly LUNGS: Respirations even and unlabored. Lungs essentially clear to auscultation bilaterally. HEART: Irregular rate and rhythm. S1 and S2 heard. ABDOMEN: Soft. Nondistended. Nontender. EXTREMITIES: Normal range of motion. No clubbing or cyanosis. Peripheral pulses intact. No lower extremity edema NEUROLOGIC: Awake and alert. Oriented x 3. ASSESSMENT: Bowel obstruction, scheduled for surgical intervention 11/11/2023 Multiple hepatic lesions, MRI pending Paroxysmal atrial fibrillation History of cardioversion, 2022 Hypertension Hyperlipidemia History of paroxysmal SVT Hypothyroidism New onset cardiomyopathy, 35 to 40%, ischemic versus nonischemic PLAN: Continue current cardiac medications Luciaquis remains on hold for surgical intervention. Continue IV heparin in the interim. Increase metoprolol to 25 mg 3 times a day for optimal heart rate control Continue telemetry monitoring There are no absolute contraindications for patient to proceed with surgery from a cardiac standpoint. Tentatively scheduled 11/11/[address] Cedeno Further recommendations pending patient course Nurse practitioner note has been reviewed by physician. Signing provider agrees with the documented findings, assessment, and plan of care documented by [employer] as a scribe. Objective - Vital Signs Vital signs: Vital Signs Temp 98.4 F 11/09/23 08:37 Pulse 113 H 11/09/23 11:29 Resp 17 11/09/23 11:29 BP 91/54 11/09/23 11:29 Pulse Ox 96 11/09/23 11:29 FiO2 Intake & Output 11/08/23 11/09/23 11/09/23 18:59 06:59 18:59 Intake Total 148.43 Balance 148.43 Weight 65.3 kg Intake: Intake, IV Titration 148.43 Amount Heparin Sod,Pork in 0.45% 148.43 NaCl 25,000 unit In 0.45 % NaCl 1 250ml.bag @ 12 UNITS/KG/HR 7.348 mls/hr IV .Q24H [facility] Rx#: [id number] Other: Voiding Method Toilet Toilet Toilet # Voids 1 1 - Labs CBC & Chem 7: 11/09/23 10:35 11/09/23 11:02 Labs: Abnormal Lab Results - Last 24 Hours (Table) 11/06/23 11/08/23 11/09/23 Range/Units 03:33 22:39 10:35 WBC 20.3 H (3.8-10.6) k/uL MCV 106.1 H (80.0-100.0) fL MCHC 29.8 L (31.0-37.0) g/dL Plt Count 529 H (150-450) k/uL Neutrophils # 16.3 H (1.3-7.7) k/uL Monocytes # 1.2 H (0-1.0) k/uL APTT 50.6 H (22.0-30.0) sec VBG pCO2 (37-51) mmHg VBG HCO3 (24-28) mmol/L Potassium (3.5-5.1) mmol/L Chloride (98-107) mmol/L Carbon Dioxide (22-30) mmol/L Glucose (74-99) mg/dL Calcium (8.4-10.2) mg/dL Total Protein (6.3-8.2) g/dL Albumin (3.5-5.0) g/dL RBC Folate 828 H (280 - 791) ng/mL 11/09/23 11/09/23 11/09/23 Range/Units 10:35 11:02 13:10 WBC (3.8-10.6) k/uL MCV (80.0-100.0) fL MCHC (31.0-37.0) g/dL Plt Count (150-450) k/uL Neutrophils # (1.3-7.7) k/uL Monocytes # (0-1.0) k/uL APTT 31.5 H (22.0-30.0) sec VBG pCO2 23 L (37-51) mmHg VBG HCO3 13 L (24-28) mmol/L Potassium 3.2 L (3.5-5.1) mmol/L Chloride 112 H (98-107) mmol/L Carbon Dioxide 10 L (22-30) mmol/L Glucose 62 L (74-99) mg/dL Calcium 7.6 L (8.4-10.2) mg/dL Total Protein 4.9 L (6.3-8.2) g/dL Albumin 2.7 L (3.5-5.0) g/dL RBC Folate (280 - 791) ng/mL Microbiology - Last 24 Hours (Table) 11/05/23 20:50 Blood Culture - Preliminary Blood 11/05/23 20:35 Blood Culture - Preliminary Blood
[2023-11-09 15:26] LABS: Phosphorus 2.6 mg/dL (2.5-4.5)
--- NOTE | 2023-11-09 15:27 | P.PN ---
Subjective Progress Note Date: 11/09/23 Subjective Patient seen and examined at bedside. This morning patient says she's in pain. Still has not had a bowel movement. Still NPO, PICC line in place for TPN. States barely passing any flatulence. Pertinent positives and negatives as discussed above, a complete review of sys tems was performed and all other systems are negative. Vitals: Signs Reviewed Physical Exam: General: nontoxic, no distress, appears at stated age Derm: warm, dry, intact Head: atraumatic, normocephalic, symmetric Eyes: EOMI, no lid lag, anicteric sclera Mouth: no lip lesion, mucus membranes moist Cardiovascular: S1 S2 reg, no murmur, rubs, or gallops Lungs: CTA bilateral, no rhonchi, no rales, no accessory muscle use Abdominal: distended, tender to palpataion, no appreciable organomegaly Extremities: no gross muscle atrophy, no edema, no contractures Neuro: Alert, Oriented, CNII-XII grossly intact Psych: well appearing, appropriate affect Data Received Today: Pertinent Labs: WBC 20.3, Plt 529, Potassium 3.2, CO2 10.1, Anion Gap 18, Plasma Lactic Acid 1.0, Glucose 62, PTT 31.5 Imaging: MRI Liver: Multiple liver lesions concerning for metastatic disease possibly gastrointestinal in origin given prior CT 11/05/2023. Finding could be secondary to mesenteric mass with tethering multiple loops of bowel. Markedly distended gallbladder lumen Chest X-ray: Right-sided PICC appropriately. possible trace b/l pleural effusion Assessment and Plan: 88-year-old female with past medical history of IBS, hypothyroid, hypertension, breast cancer, and A-fib presents with abdominal pain associated with constipation Abdominal pain, likely due to partial large bowel obstruction malignancy vs. colitis Multiple hepatic mass lesions - Continue n.p.o. diet. Continue IV fluids 75 cc normal saline -Intake/output ordered -Avoid excessive opiate use for now with moprine 2 mg ivp q4h prn for severe pain -General surgery following, likely surgery on , Eliquis discontinued -Follow-up on blood culture - For leukocytosis due to suspected colitis. Will continue with empiric Flagyl 500 mg IV q8h for anaerobic coverage, IV ceftriaxone 2gm for broader coverage of gram-negative bacterial infection - Repeat CBC and BMP -Oncology following, elevated AFP 12.4, other tumor markers WNL. CA 27-29 pending -MRI Liver results: Multiple liver lesions concerning for metastatic disease possibly gastrointestinal in origin given prior CT 11/05/2023. Finding could be secondary to mesenteric mass with tethering multiple loops of bowel. Discussed r esults with patient. -Right-sided PICC line in place for TPN Metabolic acidosis with high anion gap Lactic acid 1.0 VBG: pH 7.35 CO2 23, HCO3 13 Hypokalemia Potassium 3.2 40 mEq potassium chloride PO ordered Follow-up with CMP Atrial fibrillation w/ rvr, now rate controlled Had episode of A-fib with RVR. heart rate >180. Was transferred to for further cardiac assessment Hold Eliquis for scheduled surgery. Patient on IV heparin drip, monitor APTT, monitor for bleeding Continue 200 mg amiodarone p.o. daily Monitoring on telemetry Cardiology note reviewed. 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 Mildly increased left ventricular wall thickness Mild mitral regu rgitation. Mild aortic stenosis. No pericardial effusion. Patient appears euvolemic Metoprolol tartrate 25 mg PO twice daily. Cardiology following. 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 As patient is also on IV fluids -Hold losartan Dyslipidemia Atorvastatin 20 mg PO F: NaCl 0.9% @ 75 mls/hr E: Replete as needed N: TPN A: fall precautions, hypoglycemia protocol DVT ppx: Heparin drip Code status: No code w/instructions Anticipated discharge place: pending clinical course Anticipated discharge time: pending clinical course I have seen and evaluated the patient today. Discussed with the resident and agree with the residents finding and plan as documented in the resident's note. Reports abdominal pain and bloating. No nausea or vomiting. Family at bedside requesting results of liver MRI. HR on telemetry in the 110s. BMP Na 3.2, Cl 112, bicarb 10, AG 18, glu 62, Ca 7.6, alb 2.7. Partial SBO, colitis versus malignancy: NPO. IVF as below. Morphine 2g IV Q4H PRN for pain. IV antibiotics as below. Surgery plans for open colectomy and ostomy on Wed or . Plans for PICC line for TPN today. Sepsis likely due to colitis: Flagyl 500 mg IV TID. Rocephin 2g IV QD. NS at 75 cc/hr. Follow blood culture. Anion gap metabolic acidosis: Possibly related to above. Obtain lactic acid. Obtain VBG. Hypoglycemia: Accuchecks Q6H. Hypoglycemic precautions. Atrial fibrillation with RVR: Maintain Mg > 2 and K > 4. Eliquis on hold. Continue heparin drip. Monitor APTT. Amiodarone 200 mg PO QD. Metoprolol 25 mg PO BID. Cardiology following. Hypokalemia: KCl 40 meq PO x 1 today. Liver and Femoral lesions: CA 15-3, 19-9, CEA 4.9. AFP elvated 12.4. May need biopsy and further workup in the future. Oncology following. HFrEF: EF 35-40%. Euvolemic. Metoprolol as above. ACEi on hold due to hypotension. Macrocytosis: B12 and Folate wnl. Subclinical hypothyroidism: Likely due to acute illness. Continue Synthroid 100 mcg PO QD. Repeat TSH/FT4 in 6 weeks. Urinary incontinence: Myrbetriq when able to PO. Hypertension: Losartan/HCTZ on hold. Metoprolol as above. Dyslipidemia: Lipitor 20 mg PO QD. Resolved: Hyponatremia Objective - Vital Signs Vital signs: Vital Signs Temp 98.4 F 11/09/23 08:37 Pulse 113 H 11/09/23 11:29 Resp 17 11/09/23 11:29 BP 91/54 11/09/23 11:29 Pulse Ox 96 11/09/23 11:29 FiO2 Intake & Output 11/08/23 11/09/23 11/09/23 18:59 06:59 18:59 Intake Total 148.43 Balance 148.43 Weight 65.3 kg Intake: Intake, IV Titration 148.43 Amount Heparin Sod,Pork in 0.45% 148.43 NaCl 25,000 unit In 0.45 % NaCl 1 250ml.bag @ 12 UNITS/KG/HR 7.348 mls/hr IV .Q24H [facility] Rx#: [id number] Other: Voiding Method Toilet Toilet Toilet # Voids 1 1 - Labs CBC & Chem 7: 11/09/23 10:35 11/09/23 11:02 Labs: Abnormal Lab Results - Last 24 Hours (Table) 11/06/23 11/08/23 11/09/23 Range/Units 03:33 22:39 10:35 WBC 20.3 H (3.8-10.6) k/uL MCV 106.1 H (80.0-100.0) fL MCHC 29.8 L (31.0-37.0) g/dL Plt Count 529 H (150-450) k/uL Neutrophils # 16.3 H (1.3-7.7) k/uL Monocytes # 1.2 H (0-1.0) k/uL APTT 50.6 H (22.0-30.0) sec Potassium (3.5-5.1) mmol/L Chloride (98-107) mmol/L Carbon Dioxide (22-30) mmol/L Glucose (74-99) mg/dL Calcium (8.4-10.2) mg/dL Total Protein (6.3-8.2) g/dL Albumin (3.5-5.0) g/dL RBC Folate 828 H (280 - 791) ng/mL 11/09/23 11/09/23 Range/Units 10:35 11:02 WBC (3.8-10.6) k/uL MCV (80.0-100.0) fL MCHC (31.0-37.0) g/dL Plt Count (150-450) k/uL Neutrophils # (1.3-7.7) k/uL Monocytes # (0-1.0) k/uL APTT 31.5 H (22.0-30.0) sec Potassium 3.2 L (3.5-5.1) mmol/L Chloride 112 H (98-107) mmol/L Carbon Dioxide 10 L (22-30) mmol/L Glucose 62 L (74-99) mg/dL Calcium 7.6 L (8.4-10.2) mg/dL Total Protein 4.9 L (6.3-8.2) g/dL Albumin 2.7 L (3.5-5.0) g/dL RBC Folate (280 - 791) ng/mL Microbiology - Last 24 Hours (Table) 11/05/23 20:50 Blood Culture - Preliminary Blood 11/05/23 20:35 Blood Culture - Preliminary Blood
[2023-11-09] MEDS: METOPROLOL TARTRATE 25 MG TAB PO SCH (15:42)
[2023-11-09 16:34] LABS: Glucose,Whole Blood 91 mg/dL (70-110)
[2023-11-09] MEDS: MVI, ADULT NO.4 WITH VIT K 10 ML, TRACE (CONC-1ML/DOSE) 1 ML, CALCIUM GLUCONATE 1 GM, S... IV SCH (17:50)
[2023-11-09 20:10] LABS: Glucose,Whole Blood 138 mg/dL (70-110)
[2023-11-10 00:18] LABS: Glucose,Whole Blood 172 mg/dL (70-110)
[2023-11-10 03:28] LABS: Triglycerides 98.7 mg/dL (0.00-149.00)
[2023-11-10 06:00] LABS: Glucose,Whole Blood 222 mg/dL (70-110)
[2023-11-10] MEDS: INSULIN ASPART (NovoLOG) 100 UNIT/ML VIAL SQ SCH ×2 (06:37→23:48)
[2023-11-10 07:08] LABS: HGB 12.3 gm/dL (11.4-16.0); Hypochromasia Slight; MCH 32.6 pg (25.0-35.0); MCHC 31.6 g/dL (31.0-37.0); MCV 103.4 fL (80.0-100.0); Macrocytosis Slight; Mean Platelet Volume 8.6; Platelet Count 524 k/uL (150-450); RBC 3.77 m/uL (3.80-5.40); RDW 13.4 % (11.5-15.5); WBC 24.7 k/uL (3.8-10.6)
[2023-11-10 07:27] LABS: Ionized Calcium 4.9 mg/dL (4.5-5.3)
[2023-11-10 07:28] LABS: Magnesium 2.4 mg/dL (1.6-2.3); Phosphorus 1.9 mg/dL (2.5-4.5)
[2023-11-10 07:29] LABS: ALT 11 U/L (4-34); AST 21 U/L (14-36); African American GFR (CKD) >90 (>60 ml/min/1.73 sqM); Albumin 2.4 g/dL (3.5-5.0); Alkaline Phosphatase 84 U/L (38-126); Anion Gap 8 mmol/L; Blood Urea Nitrogen 19 mg/dL (7-17); Carbon Dioxide 16 mmol/L (22-30); Chloride 112 mmol/L (98-107); Glucose 223 mg/dL (74-99); Non-African American GFR(CKD) 82 (>60 ml/min/1.73 sqM); Potassium 3.6 mmol/L (3.5-5.1); Sodium 136 mmol/L (137-145); Total Bilirubin 0.5 mg/dL (0.2-1.3); Total Protein 4.6 g/dL (6.3-8.2)
--- NOTE | 2023-11-10 08:47 | P.PN ---
Subjective Progress Note Date: 11/10/23 Subjective Patient seen and examined at bedside. This morning patient says she's in pain. Still has not had a bowel movement. Still NPO, PICC line in place for TPN. None denies nausea, vomiting. No bowel movement. Surgery tomorrow. Pertinent positives and negatives as discussed above, a complete review of systems was performed and all other systems are negative. Vitals: Signs Reviewed Physical Exam: General: nontoxic, no distress, appears at stated age Derm: warm, dry, intact Head: atraumatic, normocephalic, symmetric Eyes: EOMI, no lid lag, anicteric sclera Mouth: no lip lesion, mucus membranes moist Cardiovascular: S1 S2 reg, no murmur, rubs, or gallops Lungs: CTA bilateral, no rhonchi, no rales, no accessory muscle use Abdominal: distended, tender to palpataion, no appreciable organomegaly Extremities: no gross muscle atrophy, no edema, no contractures Neuro: Alert, Oriented, CNII-XII grossly intact Psych: well appearing, appropriate affect Data Received Today: Pertinent Labs: CBC WBC 24.7, RBC 3.77, MCV 103.4, Plt 524. APTT 89.5. CMP Na 136, Cl 112, bicarb 16, BUN 19, glu 223, Ca 8.0, Phos 1.9, Mag 2.4, alb 2.4. Imaging: No new imaging Assessment and Plan: 88-year-old female with past medical history of IBS, hypothyroid, hypertension, breast cancer, and A-fib presents with abdominal pain associated with constipation. Scheduled for surgery tomorrow. Abdominal pain, likely due to partial large bowel obstruction malignancy vs. colitis Multiple hepatic mass lesions - Continue n.p.o. diet. Continue IV fluids 75 cc normal saline -Intake/output ordered -Avoid excessive opiate use for now with moprine 2 mg ivp q4h prn for severe pain -General surgery following, likely surgery on , Eliquis discontinued -Follow-up on blood culture - For leukocytosis due to suspected colitis. Will continue with empiric Flagyl 500 mg IV q8h for anaerobic coverage, IV ceftriaxone 2gm for broader coverage of gram-negative bacterial infection - Repeat CBC and BMP -Oncology following, elevated AFP 12.4, other tumor markers WNL. CA 27-29 pending -MRI Liver results: Multiple liver lesions concerning for metastatic disease possibly gastrointestinal in origin given prior CT 11/05/2023. Finding could be secondary to mesenteric mass with tethering multiple loops of bowel. Discussed results with patient. -Right-sided PICC line in place for TPN Patient spoke with Dr. Cedeno about ex lap procedure and possible cholecystectomy. Metabolic acidosis with high anion gap Lactic acid 1.0 VBG: pH 7.35 CO2 23, HCO3 13 Hypokalemia Potassium 3.2 40 mEq potassium chloride PO ordered Follow-up with CMP Atrial fibrillation w/ rvr, now rate controlled Had episode of A-fib with RVR. heart rate >180. Was transferred to for further cardiac assessment [facility] for scheduled surgery. Patient on IV heparin drip, monitor APTT, monitor for bleeding Continue 200 mg amiodarone p.o. daily Monitoring on telemetry Cardiology note reviewed. 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 Mildly increased left ventricular wall thickness Mild mitral regurgitation. Mild aortic stenosis. No pericardial effusion. Patient appears euvolemic Metoprolol tartrate 25 mg PO twice daily. Cardiology following. 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 As patient is also on IV fluids -Hold losartan Dyslipidemia Atorvastatin 20 mg PO F: NaCl 0.9% @ 75 mls/hr E: Replete as needed N: TPN A: fall precautions, hypoglycemia protocol DVT ppx: Heparin drip Code status: No code w/instructions Anticipated discharge place: pending clinical course Anticipated discharge time: pending clinical course I have seen and evaluated the patient today. Discussed with the resident and agree with the residents finding and plan as documented in the resident's note. Reports continued abdominal pain and bloating. No nausea or vomiting. No bowel movement. Discussed with Dr. Cedeno, tentative ex-lap planned for tomorrow. Discussed with Jessica YEN, started on cardizem drip for better control of AFib prior to surgery. HR on telemetry in the 130s. CBC WBC 24.7, RBC 3.77, MCV 103.4, Plt 524. APTT 89.5. CMP Na 136, Cl 112, bicarb 16, BUN 19, glu 223, Ca 8.0, Phos 1.9, Mag 2.4, alb 2.4. Partial SBO, colitis versus malignancy: NPO. IVF as below. Morphine 2g IV Q4H PRN for pain. IV antibiotics as below. Surgery plans for ex-lap 11/10. TPN for nutrition started 11/08. Sepsis likely due to colitis: Flagyl 500 mg IV TID. Rocephin 2g IV QD. LR at 75 cc/hr. BCx negative so far. Worsening leukocytosis, consult ID. Metabolic acidosis: Possibly related to above. Lactic acid negative. VBG shows compensated respiratory alkalosis. Could be due to hyperCl from normal saline. Switch NS to LR at 75 cc/hr. Atrial fibrillation with RVR: Maintain Mg > 2 and K > 4. Eliquis on hold. Continue heparin drip. Started on Cardizem drip at 5 mg/hr. Additional Metoprolol 25 mg PO x 1 given today. Monitor APTT. Amiodarone 200 mg PO QD. Metoprolol 25 mg PO BID. Cardiology following. Liver and Femoral lesions: CA 15-3, 19-9, CEA 4.9. AFP elvated 12.4. May need biopsy and further workup in the future. Oncology following. HFrEF: EF 35-40%. Euvolemic. Metoprolol as above. ACEi on hold due to hypotension. Macrocytosis: B12 and Folate wnl. Subclinical hypothyroidism: Likely due to acute illness. Continue Synthroid 100 mcg PO QD. Repeat TSH/FT4 in 6 weeks. Urinary incontinence: Myrbetriq when able to PO. Hypertension: Losartan/HCTZ on hold. Metoprolol as above. Cardizem drip as above. Dyslipidemia: Lipitor 20 mg PO QD. Resolved: Hyponatremia, Hypoglycemia, Hypokalemia Objective - Vital Signs Vital signs: Vital Signs Temp 98.2 F 11/10/23 04:15 Pulse 133 H 11/10/23 04:15 Resp 18 11/10/23 04:15 BP 137/77 11/10/23 04:15 Pulse Ox 94 L 11/10/23 04:15 FiO2 Intake & Output 11/09/23 11/10/23 11/10/23 18:59 06:59 18:59 Intake Total 148.43 124.821 Balance 148.43 124.821 Weight 65.3 kg 67.2 kg Intake: Intake, IV Titration 148.43 124.821 Amount Heparin Sod,Pork in 0.45% 148.43 124.821 NaCl 25,000 unit In 0.45 % NaCl 1 250ml.bag @ 12 UNITS/KG/HR 7.348 mls/hr IV .Q24H [facility] Rx#: [id number] Other: Voiding Method Toilet Toilet # Voids 2 - Labs CBC & Chem 7: 11/10/23 06:19 11/10/23 06:19 Labs: Abnormal Lab Results - Last 24 Hours (Table) 11/09/23 11/09/23 11/09/23 Range/Units 10:35 10:35 11:02 WBC 20.3 H (3.8-10.6) k/uL RBC (3.80-5.40) m/uL MCV 106.1 H (80.0-100.0) fL MCHC 29.8 L (31.0-37.0) g/dL Plt Count 529 H (150-450) k/uL Neutrophils # 16.3 H (1.3-7.7) k/uL Monocytes # 1.2 H (0-1.0) k/uL APTT 31.5 H (22.0-30.0) sec VBG pCO2 (37-51) mmHg VBG HCO3 (24-28) mmol/L Sodium (137-145) mmol/L Potassium 3.2 L (3.5-5.1) mmol/L Chloride 112 H (98-107) mmol/L Carbon Dioxide 10 L (22-30) mmol/L BUN (7-17) mg/dL Glucose 62 L (74-99) mg/dL POC Glucose (mg/dL) (70-110) mg/dL Calcium 7.6 L (8.4-10.2) mg/dL Phosphorus (2.5-4.5) mg/dL Magnesium (1.6-2.3) mg/dL Total Protein 4.9 L (6.3-8.2) g/dL Albumin 2.7 L (3.5-5.0) g/dL 11/09/23 11/09/23 11/09/23 Range/Units 13:10 18:34 20:08 WBC (3.8-10.6) k/uL RBC (3.80-5.40) m/uL MCV (80.0-100.0) fL MCHC (31.0-37.0) g/dL Plt Count (150-450) k/uL Neutrophils # (1.3-7.7) k/uL Monocytes # (0-1.0) k/uL APTT 92.2 H (22.0-30.0) sec VBG pCO2 23 L (37-51) mmHg VBG HCO3 13 L (24-28) mmol/L Sodium (137-145) mmol/L Potassium (3.5-5.1) mmol/L Chloride (98-107) mmol/L Carbon Dioxide (22-30) mmol/L BUN (7-17) mg/dL Glucose (74-99) mg/dL POC Glucose (mg/dL) 138 H (70-110) mg/dL Calcium (8.4-10.2) mg/dL Phosphorus (2.5-4.5) mg/dL Magnesium (1.6-2.3) mg/dL Total Protein (6.3-8.2) g/dL Albumin (3.5-5.0) g/dL 11/10/23 11/10/23 11/10/23 Range/Units 00:13 00:44 05:57 WBC (3.8-10.6) k/uL RBC (3.80-5.40) m/uL MCV (80.0-100.0) fL MCHC (31.0-37.0) g/dL Plt Count (150-450) k/uL Neutrophils # (1.3-7.7) k/uL Monocytes # (0-1.0) k/uL APTT 91.5 H (22.0-30.0) sec VBG pCO2 (37-51) mmHg VBG HCO3 (24-28) mmol/L Sodium (137-145) mmol/L Potassium (3.5-5.1) mmol/L Chloride (98-107) mmol/L Carbon Dioxide (22-30) mmol/L BUN (7-17) mg/dL Glucose (74-99) mg/dL POC Glucose (mg/dL) 172 H 222 H (70-110) mg/dL Calcium (8.4-10.2) mg/dL Phosphorus (2.5-4.5) mg/dL Magnesium (1.6-2.3) mg/dL Total Protein (6.3-8.2) g/dL Albumin (3.5-5.0) g/dL 11/10/23 11/10/23 11/10/23 Range/Units 06:19 06:19 06:19 WBC 24.7 H (3.8-10.6) k/uL RBC 3.77 L (3.80-5.40) m/uL MCV 103.4 H (80.0-100.0) fL MCHC (31.0-37.0) g/dL Plt Count 524 H (150-450) k/uL Neutrophils # (1.3-7.7) k/uL Monocytes # (0-1.0) k/uL APTT (22.0-30.0) sec VBG pCO2 (37-51) mmHg VBG HCO3 (24-28) mmol/L Sodium 136 L (137-145) mmol/L Potassium (3.5-5.1) mmol/L Chloride 112 H (98-107) mmol/L Carbon Dioxide 16 L (22-30) mmol/L BUN 19 H (7-17) mg/dL Glucose 223 H (74-99) mg/dL POC Glucose (mg/dL) (70-110) mg/dL Calcium 8.0 L (8.4-10.2) mg/dL Phosphorus 1.9 L (2.5-4.5) mg/dL Magnesium 2.4 H (1.6-2.3) mg/dL Total Protein 4.6 L (6.3-8.2) g/dL Albumin 2.4 L (3.5-5.0) g/dL 11/10/23 Range/Units 06:19 WBC (3.8-10.6) k/uL RBC (3.80-5.40) m/uL MCV (80.0-100.0) fL MCHC (31.0-37.0) g/dL Plt Count (150-450) k/uL Neutrophils # (1.3-7.7) k/uL Monocytes # (0-1.0) k/uL APTT 89.5 H (22.0-30.0) sec VBG pCO2 (37-51) mmHg VBG HCO3 (24-28) mmol/L Sodium (137-145) mmol/L Potassium (3.5-5.1) mmol/L Chloride (98-107) mmol/L Carbon Dioxide (22-30) mmol/L BUN (7-17) mg/dL Glucose (74-99) mg/dL POC Glucose (mg/dL) (70-110) mg/dL Calcium (8.4-10.2) mg/dL Phosphorus (2.5-4.5) mg/dL Magnesium (1.6-2.3) mg/dL Total Protein (6.3-8.2) g/dL Albumin (3.5-5.0) g/dL Microbiology - Last 24 Hours (Table) 11/05/23 20:50 Blood Culture - Preliminary Blood 11/05/23 20:35 Blood Culture - Preliminary Blood
[2023-11-10] MEDS: METOPROLOL TARTRATE 25 MG TAB PO STA (10:37)
[2023-11-10 11:52] LABS: Glucose,Whole Blood 242 mg/dL (70-110)
[2023-11-10] MEDS: FAT EMULSION 20% 250 ML in EMPTY BAG 1 BAG IV SCH (13:02)
--- NOTE | 2023-11-10 13:05 | P.PN ---
Subjective Progress Note Date: 11/10/23 CHIEF COMPLAINT: Abdominal pain with distention HISTORY OF PRESENT ILLNESS: The patient is a 88-year-old female admitted with abdominal distention including abdominal pain. She now reports she is passing some flatus. Patient was seen and evaluated by hospitalist. She denies any moderate abdominal pain. No fevers or chills. She had A-fib with RVR and currently on heparin drip. REVIEW OF ORGAN SYSTEMS: CARDIOVASCULAR: Has atrial fibrillation with hypertensive heart disease and hyperlipidemia. On chronic blood thinners. GASTROINTESTINAL: Prior diarrhea for colonoscopy August 2022 BREAST: History of breast cancer with lumpectomy. PHYSICAL EXAM: VITALS: Reviewed CONSTITUTIONAL: Well developed and in no acute distress. EYES: Conjuctivae without sclera icterus. Extraocular movements grossly intact. HEAD, EARS, NOSE, THROAT: Moist buccal mucosa. Head is atraumatic, normocephalic. Hears conversational speech. No nasal drainage. RESPIRATORY: Non-labored respirations and equal bilateral excursions. No gross wheezes. CARDIOVASCULAR: Palpable 2+ radial pulses. ABDOMEN: No generalized peritonitis. Stable abdominal distention. MUSCULOSKELETAL: No clubbing cyanosis or edema SKIN: Warm and well perfused with good skin turgor. NEUROLOGIC: Cranial nerves II through XII grossly intact. No focal or lateralizing signs. PSYCH: Appropriate affect. Alert and oriented to person, place and time. Displays appropriate insight. CLINCAL LABS: Reviewed. 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 Abdominal pain with distention 2. Hyponatremia 3. History of breast cancer 4. Large bowel obstruction diverticulosis 5. Diverticulosis diverticulitis 6. Abnormal CT scan for malignancy 7. Leukocytosis 8. Severe hypothyroidism 9. Atrial fibrillation with rapid ventricular response 10. Cholecystitis PLAN: 1. Benefits risks of exploratory laparotomy described as patient has large bowel obstruction. Diverting ostomy described. 2. With imaging finding of cholecystitis, cholecystectomy also discussed 3. Overall global discussion reviewed with oncology team as well Objective - Vital Signs Vital signs: Vital Signs Temp 97.7 F 11/10/23 08:00 Pulse 136 H 11/10/23 08:00 Resp 20 11/10/23 08:00 BP 120/57 11/10/23 08:00 Pulse Ox 94 L 11/10/23 08:00 FiO2 Intake & Output 11/09/23 11/10/23 11/10/23 18:59 06:59 18:59 Intake Total 148.43 124.821 Balance 148.43 124.821 Weight 65.3 kg 67.2 kg Intake: Intake, IV Titration 148.43 124.821 Amount Heparin Sod,Pork in 0.45% 148.43 124.821 NaCl 25,000 unit In 0.45 % NaCl 1 250ml.bag @ 12 UNITS/KG/HR 7.348 mls/hr IV .Q24H [facility] Rx#: [id number] Other: Voiding Method Toilet Toilet Toilet # Voids 2 1 # Bowel Movements 1 - Labs CBC & Chem 7: 11/10/23 06:19 11/10/23 06:19 Labs: Abnormal Lab Results - Last 24 Hours (Table) 11/09/23 11/09/23 11/09/23 Range/Units 13:10 18:34 20:08 WBC (3.8-10.6) k/uL RBC (3.80-5.40) m/uL MCV (80.0-100.0) fL Plt Count (150-450) k/uL APTT 92.2 H (22.0-30.0) sec VBG pCO2 23 L (37-51) mmHg VBG HCO3 13 L (24-28) mmol/L Sodium (137-145) mmol/L Chloride (98-107) mmol/L Carbon Dioxide (22-30) mmol/L BUN (7-17) mg/dL Glucose (74-99) mg/dL POC Glucose (mg/dL) 138 H (70-110) mg/dL Calcium (8.4-10.2) mg/dL Phosphorus (2.5-4.5) mg/dL Magnesium (1.6-2.3) mg/dL Total Protein (6.3-8.2) g/dL Albumin (3.5-5.0) g/dL 11/10/23 11/10/23 11/10/23 Range/Units 00:13 00:44 05:57 WBC (3.8-10.6) k/uL RBC (3.80-5.40) m/uL MCV (80.0-100.0) fL Plt Count (150-450) k/uL APTT 91.5 H (22.0-30.0) sec VBG pCO2 (37-51) mmHg VBG HCO3 (24-28) mmol/L Sodium (137-145) mmol/L Chloride (98-107) mmol/L Carbon Dioxide (22-30) mmol/L BUN (7-17) mg/dL Glucose (74-99) mg/dL POC Glucose (mg/dL) 172 H 222 H (70-110) mg/dL Calcium (8.4-10.2) mg/dL Phosphorus (2.5-4.5) mg/dL Magnesium (1.6-2.3) mg/dL Total Protein (6.3-8.2) g/dL Albumin (3.5-5.0) g/dL 11/10/23 11/10/23 11/10/23 Range/Units 06:19 06:19 06:19 WBC 24.7 H (3.8-10.6) k/uL RBC 3.77 L (3.80-5.40) m/uL MCV 103.4 H (80.0-100.0) fL Plt Count 524 H (150-450) k/uL APTT (22.0-30.0) sec VBG pCO2 (37-51) mmHg VBG HCO3 (24-28) mmol/L Sodium 136 L (137-145) mmol/L Chloride 112 H (98-107) mmol/L Carbon Dioxide 16 L (22-30) mmol/L BUN 19 H (7-17) mg/dL Glucose 223 H (74-99) mg/dL POC Glucose (mg/dL) (70-110) mg/dL Calcium 8.0 L (8.4-10.2) mg/dL Phosphorus 1.9 L (2.5-4.5) mg/dL Magnesium 2.4 H (1.6-2.3) mg/dL Total Protein 4.6 L (6.3-8.2) g/dL Albumin 2.4 L (3.5-5.0) g/dL 11/10/23 11/10/23 Range/Units 06:19 11:51 WBC (3.8-10.6) k/uL RBC (3.80-5.40) m/uL MCV (80.0-100.0) fL Plt Count (150-450) k/uL APTT 89.5 H (22.0-30.0) sec VBG pCO2 (37-51) mmHg VBG HCO3 (24-28) mmol/L Sodium (137-145) mmol/L Chloride (98-107) mmol/L Carbon Dioxide (22-30) mmol/L BUN (7-17) mg/dL Glucose (74-99) mg/dL POC Glucose (mg/dL) 242 H (70-110) mg/dL Calcium (8.4-10.2) mg/dL Phosphorus (2.5-4.5) mg/dL Magnesium (1.6-2.3) mg/dL Total Protein (6.3-8.2) g/dL Albumin (3.5-5.0) g/dL
[2023-11-10] MEDS: DILTIAZEM 125 MG in SODIUM CHLORIDE 0.9% 100 ML IV SCH (13:11)
[2023-11-10] MEDS: DILTIAZEM DRIP BOLUS FROM BAG 1 MG SOLN IV ONE (13:11)
--- NOTE | 2023-11-10 13:25 | P.PN ---
Subjective HISTORY OF PRESENT ILLNESS: This is a 88-year-old female with a past medical history significant for atrial fibrillation, SVT, hypertension, hyperlipidemia, and hypothyroidism. Patient follows in the office with Dr. Holloway. We have been asked to see the patient in consultation for cardiac risk assessment. Patient examined at the bedside. Patient states she presented to the hospital after not having a bowel movement for 11 days. She has been seen by general surgery and is scheduled to undergo open sigmoid colectomy with colostomy on 11/11/[address] Cedeno. Patient currently denies any chest pain or pressure. She denies any shortness of breath. Apparently, overnight the patient went tachycardic and she was prescribed IV heparin and IV amiodarone and transferred to [facility]. She converted to sinus mechanism and is maintaining sinus mechanism at the time of examination. DIAGNOSTICS: - Telemetry currently reveals sinus mechanism - Laboratory data: WBC 17.7. Hemoglobin 11.9. Platelet count 325. Sodium 139. Potassium 3.9. BUN 16. Creatinine 0.7. TSH 18.3. Free T41.67. - Current home cardiac medications include amiodarone 200 mg daily, metoprolol tartrate 25 mg twice a day, Lipitor 20 mg daily, Eliquis 5 mg twice a day. - Most recent echocardiogram obtained in July 2022 revealed ejection fraction 52%, mild aortic stenosis, mild mitral regurgitation, mild tricuspid regurgitation 11/09/2023 Patient examined this morning at the bedside. Patient currently denies chest pain or pressure. She denies shortness of breath. She remains in atrial fibrillation with decently controlled ventricular rates. Echocardiogram c ompleted revealing ejection fraction 35 to 40%, mild MR, mild 11/10/2023 Patient examined this morning the bedside. Patient seen up in the chair. Patient denies chest pain or pressure. She denies shortness of breath. Vital signs are stable. She remains in atrial fibrillation with heart rate between [id number]. PHYSICAL EXAM: VITAL SIGNS: Reviewed. GENERAL: Well-developed in no acute distress. HEENT: Head is normocephalic. Pupils are equal, round. Sclerae anicteric. Mucous membranes of the mouth are moist. Neck supple. No JVD or thyromegaly LUNGS: Respirations even and unlabored. Lungs essentially clear to auscultation bilaterally. HEART: Irregular rate and rhythm. S1 and S2 heard. ABDOMEN: Soft. Nondistended. Nontender. EXTREMITIES: Normal range of motion. No clubbing or cyanosis. Peripheral pulses intact. No lower extremity edema NEUROLOGIC: Awake and alert. Oriented x 3. 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 Continue IV heparin in the interim. Continue metoprolol Begin IV Cardizem in the interim for optimal heart rate control for surgical intervention. Will discontinue postoperatively. Continue telemetry monitoring There are no absolute contraindications for patient to proceed with surgery from a cardiac standpoint. Tentatively scheduled 11/11/[address] Cedeno Further recommendations pending patient course Nurse practitioner note has been reviewed by physician. Signing provider agrees with the documented findings, assessment, and plan of care documented by [employer] as a scribe. Objective - Vital Signs Vital signs: Vital Signs Temp 98.1 F 11/10/23 12:00 Pulse 124 H 11/10/23 12:00 Resp 18 11/10/23 12:00 BP 115/68 11/10/23 12:00 Pulse Ox 95 11/10/23 12:00 FiO2 Intake & Output 11/09/23 11/10/23 11/10/23 18:59 06:59 18:59 Intake Total 148.43 124.821 Balance 148.43 124.821 Weight 65.3 kg 67.2 kg Intake: Intake, IV Titration 148.43 124.821 Amount Heparin Sod,Pork in 0.45% 148.43 124.821 NaCl 25,000 unit In 0.45 % NaCl 1 250ml.bag @ 12 UNITS/KG/HR 7.348 mls/hr IV .Q24H [facility] Rx#: [id number] Other: Voiding Method Toilet Toilet Toilet # Voids 2 1 # Bowel Movements 1 - Labs CBC & Chem 7: 11/10/23 06:19 11/10/23 06:19 Labs: Abnormal Lab Results - Last 24 Hours (Table) 11/09/23 11/09/23 11/10/23 Range/Units 18:34 20:08 00:13 WBC (3.8-10.6) k/uL RBC (3.80-5.40) m/uL MCV (80.0-100.0) fL Plt Count (150-450) k/uL APTT 92.2 H (22.0-30.0) sec Sodium (137-145) mmol/L Chloride (98-107) mmol/L Carbon Dioxide (22-30) mmol/L BUN (7-17) mg/dL Glucose (74-99) mg/dL POC Glucose (mg/dL) 138 H 172 H (70-110) mg/dL Calcium (8.4-10.2) mg/dL Phosphorus (2.5-4.5) mg/dL Magnesium (1.6-2.3) mg/dL Total Protein (6.3-8.2) g/dL Albumin (3.5-5.0) g/dL 11/10/23 11/10/23 11/10/23 Range/Units 00:44 05:57 06:19 WBC (3.8-10.6) k/uL RBC (3.80-5.40) m/uL MCV (80.0-100.0) fL Plt Count (150-450) k/uL APTT 91.5 H (22.0-30.0) sec Sodium (137-145) mmol/L Chloride (98-107) mmol/L Carbon Dioxide (22-30) mmol/L BUN (7-17) mg/dL Glucose (74-99) mg/dL POC Glucose (mg/dL) 222 H (70-110) mg/dL Calcium (8.4-10.2) mg/dL Phosphorus 1.9 L (2.5-4.5) mg/dL Magnesium 2.4 H (1.6-2.3) mg/dL Total Protein (6.3-8.2) g/dL Albumin (3.5-5.0) g/dL 11/10/23 11/10/23 11/10/23 Range/Units 06:19 06:19 06:19 WBC 24.7 H (3.8-10.6) k/uL RBC 3.77 L (3.80-5.40) m/uL MCV 103.4 H (80.0-100.0) fL Plt Count 524 H (150-450) k/uL APTT 89.5 H (22.0-30.0) sec Sodium 136 L (137-145) mmol/L Chloride 112 H (98-107) mmol/L Carbon Dioxide 16 L (22-30) mmol/L BUN 19 H (7-17) mg/dL Glucose 223 H (74-99) mg/dL POC Glucose (mg/dL) (70-110) mg/dL Calcium 8.0 L (8.4-10.2) mg/dL Phosphorus (2.5-4.5) mg/dL Magnesium (1.6-2.3) mg/dL Total Protein 4.6 L (6.3-8.2) g/dL Albumin 2.4 L (3.5-5.0) g/dL 11/10/23 Range/Units 11:51 WBC (3.8-10.6) k/uL RBC (3.80-5.40) m/uL MCV (80.0-100.0) fL Plt Count (150-450) k/uL APTT (22.0-30.0) sec Sodium (137-145) mmol/L Chloride (98-107) mmol/L Carbon Dioxide (22-30) mmol/L BUN (7-17) mg/dL Glucose (74-99) mg/dL POC Glucose (mg/dL) 242 H (70-110) mg/dL Calcium (8.4-10.2) mg/dL Phosphorus (2.5-4.5) mg/dL Magnesium (1.6-2.3) mg/dL Total Protein (6.3-8.2) g/dL Albumin (3.5-5.0) g/dL
[2023-11-10] MEDS: LACTATED RINGERS 1,000 ML IV SCH (15:54)
[2023-11-10 16:46] LABS: Glucose,Whole Blood 196 mg/dL (70-110)
--- NOTE | 2023-11-10 18:15 | P.PN ---
Subjective Progress Note Date: 11/10/23 Principal diagnosis: Liver lesions Pt seen in ICU, she is doing much better today, denies SOB, chest pain, she is having multiple BMs after medications taken for constipation. No pain to report. Objective - Vital Signs Vital signs: Vital Signs Temp 97.9 F 11/10/23 16:00 Pulse 106 H 11/10/23 16:00 Resp 16 11/10/23 16:00 BP 115/64 11/10/23 16:00 Pulse Ox 96 11/10/23 16:00 FiO2 Intake & Output 11/09/23 11/10/23 11/10/23 18:59 06:59 18:59 Intake Total 148.43 124.821 89.322 Balance 148.43 124.821 89.322 Weight 65.3 kg 67.2 kg Intake: Intake, IV Titration 148.43 124.821 89.322 Amount Heparin Sod,Pork in 0.45% 148.43 124.821 89.322 NaCl 25,000 unit In 0.45 % NaCl 1 250ml.bag @ 12 UNITS/KG/HR 7.348 mls/hr IV .Q24H [facility] Rx#: [id number] Other: Voiding Method Toilet Toilet Toilet # Voids 2 1 # Bowel Movements 1 - Constitutional General appearance: Present: average body habitus, cooperative, no acute distress - EENT Eyes: Present: anicteric sclerae, EOMI ENT: Present: hearing grossly normal - Respiratory Details: resp even and unlabored - Cardiovascular Details: regular on tele - Integumentary Integumentary: Present: normal - Neurologic Neurologic: Present: CNII-XII intact - Musculoskeletal Musculoskeletal: Present: generalized weakness, strength equal bilaterally - Psychiatric Psychiatric: Present: A&O x's 3, appropriate affect, intact judgment & insight - Labs CBC & Chem 7: 11/10/23 06:19 11/10/23 06:19 Labs: Abnormal Lab Results - Last 24 Hours (Table) 11/09/23 11/09/23 11/10/23 Range/Units 18:34 20:08 00:13 WBC (3.8-10.6) k/uL RBC (3.80-5.40) m/uL MCV (80.0-100.0) fL Plt Count (150-450) k/uL APTT 92.2 H (22.0-30.0) sec Sodium (137-145) mmol/L Chloride (98-107) mmol/L Carbon Dioxide (22-30) mmol/L BUN (7-17) mg/dL Glucose (74-99) mg/dL POC Glucose (mg/dL) 138 H 172 H (70-110) mg/dL Calcium (8.4-10.2) mg/dL Phosphorus (2.5-4.5) mg/dL Magnesium (1.6-2.3) mg/dL Total Protein (6.3-8.2) g/dL Albumin (3.5-5.0) g/dL 11/10/23 11/10/23 11/10/23 Range/Units 00:44 05:57 06:19 WBC (3.8-10.6) k/uL RBC (3.80-5.40) m/uL MCV (80.0-100.0) fL Plt Count (150-450) k/uL APTT 91.5 H (22.0-30.0) sec Sodium (137-145) mmol/L Chloride (98-107) mmol/L Carbon Dioxide (22-30) mmol/L BUN (7-17) mg/dL Glucose (74-99) mg/dL POC Glucose (mg/dL) 222 H (70-110) mg/dL Calcium (8.4-10.2) mg/dL Phosphorus 1.9 L (2.5-4.5) mg/dL Magnesium 2.4 H (1.6-2.3) mg/dL Total Protein (6.3-8.2) g/dL Albumin (3.5-5.0) g/dL 11/10/23 11/10/23 11/10/23 Range/Units 06:19 06:19 06:19 WBC 24.7 H (3.8-10.6) k/uL RBC 3.77 L (3.80-5.40) m/uL MCV 103.4 H (80.0-100.0) fL Plt Count 524 H (150-450) k/uL APTT 89.5 H (22.0-30.0) sec Sodium 136 L (137-145) mmol/L Chloride 112 H (98-107) mmol/L Carbon Dioxide 16 L (22-30) mmol/L BUN 19 H (7-17) mg/dL Glucose 223 H (74-99) mg/dL POC Glucose (mg/dL) (70-110) mg/dL Calcium 8.0 L (8.4-10.2) mg/dL Phosphorus (2.5-4.5) mg/dL Magnesium (1.6-2.3) mg/dL Total Protein 4.6 L (6.3-8.2) g/dL Albumin 2.4 L (3.5-5.0) g/dL 11/10/23 11/10/23 Range/Units 11:51 16:44 WBC (3.8-10.6) k/uL RBC (3.80-5.40) m/uL MCV (80.0-100.0) fL Plt Count (150-450) k/uL APTT (22.0-30.0) sec Sodium (137-145) mmol/L Chloride (98-107) mmol/L Carbon Dioxide (22-30) mmol/L BUN (7-17) mg/dL Glucose (74-99) mg/dL POC Glucose (mg/dL) 242 H 196 H (70-110) mg/dL Calcium (8.4-10.2) mg/dL Phosphorus (2.5-4.5) mg/dL Magnesium (1.6-2.3) mg/dL Total Protein (6.3-8.2) g/dL Albumin (3.5-5.0) g/dL - Imaging and Cardiology liver MRI report and image reviewed Assessment and Plan (1) Liver lesion Current Visit: Yes Status: Acute Priority: High Code(s): K76.9 - LIVER DISEASE, UNSPECIFIED SNOMED Code(s): 157365519 (2) Breast cancer Current Visit: No Status: Chronic Priority: Low Code(s): C50.919 - M ALIGNANT NEOPLASM OF UNSP SITE OF UNSPECIFIED FEMALE BREAST SNOMED Code(s): 387142289 Plan: Liver lesions -Confirmed with MRI, lesions in liver -Tumor markers were WNL, AFP is so slightly elevated it is not useful at this time. -Reviewed results with pt and son. -Case discussed with Surgeon. Plan for biopsies during surgery tomorrow -Path pending. Hx breast cancer, remote -Breast tumor markers WNL
[2023-11-10] MEDS: PIPERACILLIN-TAZOBACTAM 3.375 GM in SODIUM CHLORIDE 0.9% 100 ML IVPB SCH (18:19)
[2023-11-10] MEDS: MVI, ADULT NO.4 WITH VIT K 10 ML, TRACE (CONC-1ML/DOSE) 1 ML, CALCIUM GLUCONATE 1 GM, S... IV SCH (18:42)
[2023-11-10] MEDS: HEPARIN SODIUM 1,000 UN/ML (10ML VL) IV PRN (21:24)
[2023-11-10 23:23] LABS: Glucose,Whole Blood 239 mg/dL (70-110)
[2023-11-11 04:10] LABS: Basophils % (A) 0 %; Eosinophils % (A) 0 %; HCT 37.9 % (34.0-46.0); Lymphocytes # (A) 3.4 k/uL (1.0-4.8); Lymphocytes % (A) 14 %; MCH 32.3 pg (25.0-35.0); MCHC 31.7 g/dL (31.0-37.0); MCV 101.8 fL (80.0-100.0); Macrocytosis Slight; Mean Platelet Volume 7.6; Monocytes # (A) 1.1 k/uL (0-1.0); Monocytes % (A) 5 %; Neutrophils # (A) 18.9 k/uL (1.3-7.7); Neutrophils % (A) 79 %; Platelet Count 486 k/uL (150-450); RBC 3.73 m/uL (3.80-5.40); RDW 13.6 % (11.5-15.5)
[2023-11-11 04:32] LABS: African American GFR (CKD) >90 (>60 ml/min/1.73 sqM); Anion Gap 4 mmol/L; Blood Urea Nitrogen 21 mg/dL (7-17); Calcium 8.3 mg/dL (8.4-10.2); Carbon Dioxide 18 mmol/L (22-30); Chloride 112 mmol/L (98-107); Glucose 246 mg/dL (74-99); Magnesium 2.3 mg/dL (1.6-2.3); Non-African American GFR(CKD) 86 (>60 ml/min/1.73 sqM); Phosphorus 1.2 mg/dL (2.5-4.5); Potassium 3.3 mmol/L (3.5-5.1); Sodium 134 mmol/L (137-145)
[2023-11-11 06:01] LABS: Glucose,Whole Blood 255 mg/dL (70-110)
--- NOTE | 2023-11-11 07:40 | P.PN ---
Subjective Progress Note Date: 11/11/23 Subjective Patient seen and examined at bedside. This morning patient says she's in pain. Still has not had a bowel movement. Still NPO, PICC line in place for TPN. She denies nausea, vomiting. Surgery scheduled for this afternoon. Pertinent positives and negatives as discussed above, a complete review of systems was performed and all other systems are negative. Vitals: Signs Reviewed Physical Exam: General: nontoxic, no distress, appears at stated age Derm: warm, dry, intact Head: atraumatic, normocephalic, symmetric Eyes: EOMI, no lid lag, anicteric sclera Mouth: no lip lesion, mucus membranes moist Cardiovascular: S1 S2 reg, no murmur, rubs, or gallops Lungs: CTA bilateral, no rhonchi, no rales, no accessory muscle use Abdominal: distended, tender to palpataion, no appreciable organomegaly Extremities: no gross muscle atrophy, no edema, no contractures Neuro: Alert, Oriented, CNII-XII grossly intact Psych: well appearing, appropriate affect Data Received Today: Pertinent Labs: CBC WBC 24.0, Hgb 12, , Plt 486 APTT 66.1 CMP Na 134, Cl 112, bicarb 18, BUN 21, glu 226, Phos 1.2, Mag 2.3, Imaging: No new imaging Assessment and Plan: 88-year-old female with past medical history of IBS, hypothyroid, hypertension, breast cancer, and A-fib presents with abdominal pain associated with constipation. Sigmoid colectomy surgery Abdominal pain, likely due to partial large bowel obstruction malignancy vs. colitis Multiple hepatic mass lesions - Continue n.p.o. diet. Continue IV fluids 75 cc normal saline -Intake/output ordered -Avoid excessive opiate use for now with moprine 2 mg ivp q4h prn for severe pain -General surgery following, likely surgery on , Eliquis discontinued - blood cultures negative so far - For leukocytosis due to suspected colitis. ID discontinued Flagyl 500 mg, IV ceftriaxone 2gm. Was put on Zosyn 4.375g IV TID on 11/09 by ID. - Repeat CBC and BMP -Oncology following, elevated AFP 12.4, other tumor markers WNL. CA 27-29 pending -MRI Liver results: Multiple liver lesions concerning for metastatic disease possibly gastrointestinal in origin given prior CT 11/05/2023. Finding could be secondary to mesenteric mass with tethering multiple loops of bowel. Discussed results with patient. -Right-sided PICC line in place for TPN Patient spoke with Dr. Cedeno about ex lap procedure and possible cholecystectomy. Metabolic acidosis with high anion gap Lactic acid 1.0 VBG: pH 7.35 CO2 23, HCO3 13 VBG shows compensated respiratory alkalosis. Could be due to hyperCl from normal saline. Switch NS to LR at 75 cc/hr. Hypokalemia Potassium 3.2 40 mEq potassium chloride PO ordered Follow-up with CMP Atrial fibrillation w/ rvr, now rate controlled Had episode of A-fib with RVR. heart rate >180. Was transferred to for further cardiac assessment Hold Eliquis for scheduled surgery. Patient on IV heparin drip, monitor APTT, monitor for bleeding Continue 200 mg amiodarone p.o. daily Monitoring on telemetry Cardiology note reviewed. 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 Mildly increased left ventricular wall thickness Mild mitral regurgitation. Mild aortic stenosis. No pericardial effusion. Patient appears euvolemic Metoprolol tartrate 25 mg PO twice daily. Cardiology following. 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 As patient is also on IV fluids -Hold losartan Dyslipidemia Atorvastatin 20 mg PO F: NaCl 0.9% @ 75 mls/hr E: Replete as needed N: TPN A: fall precautions, hypoglycemia protocol DVT ppx: d/c Heparin drip 4 hrs prior to surgery. SCDs Code status: No code w/instructions Anticipated discharge place: pending clinical course Anticipated discharge time: pending clinical course I have seen and evaluated the patient today. Discussed with the resident and agree with the residents subjective and objective as documented in the resident's note. The assessment and plan was discussed and outlined as below. Reports continued abdominal pain and bloating. Discussed with Dr. Dotson, stop heparin drip 4 hours prior to surgery and continue Cardizem drip at 5 mg/hr. HR on telemetry in the 110s CBC WBC 24, RBC 3.73, MCV 101.8, Plt 487. APTT 66.1. BMP Na 134, K 3.3, Cl 112, bicarb 18, BUN 21, glu 246, Ca 8.3, Phos 1.2, Mag 2.3. Partial SBO, colitis versus malignancy: NPO. IVF as below. Morphine 2g IV Q4H PRN for pain. IV antibiotics as below. Surgery plans for ex-lap 11/10. TPN for nutrition started 11/08. Sepsis likely due to colitis: Flagyl and Rocephin switched to Zosyn 4.375g IV TID on 11/09 by ID. LR at 75 cc/hr. BCx negative so far. Metabolic acidosis: Possibly related to above. Lactic acid negative. VBG shows compensated respiratory alkalosis. Could be due to hyperCl from normal saline. Switch NS to LR at 75 cc/hr. Atrial fibrillation with RVR: Maintain Mg > 2 and K > 4. Eliquis on hold. Continue heparin drip. Cardizem drip at 5 mg/hr. Monitor APTT. Amiodarone 200 mg PO QD. Metoprolol 25 mg PO BID. Cardiology following. Liver and Femoral lesions: CA 15-3, 19-9, CEA 4.9. AFP elvated 12.4. May need biopsy and further workup in the future. Oncology following. HFrEF: EF 35-40%. Euvolemic. Metoprolol as above. ACEi on hold due to hypotension. Macrocytosis: B12 and Folate wnl. Subclinical hypothyroidism: Likely due to acute illness. Continue Synthroid 100 mcg PO QD. Repeat TSH/FT4 in 6 weeks. Urinary incontinence: Myrbetriq when able to PO. Hypertension: Losartan/HCTZ on hold. Metoprolol as above. Cardizem drip as above. Dyslipidemia: Lipitor 20 mg PO QD. Resolved: Hyponatremia, Hypoglycemia, Hypokalemia Objective - Vital Signs Vital signs: Vital Signs Temp 98.0 F 11/11/23 04:00 Pulse 90 11/11/23 04:00 Resp 18 11/11/23 04:00 BP 100/63 11/11/23 04:00 Pulse Ox 95 11/11/23 04:00 FiO2 Intake & Output 11/10/23 11/10/23 11/11/23 06:59 18:59 06:59 Intake Total 124.821 89.322 109.486 Balance 124.821 89.322 109.486 Weight 67.2 kg 69.3 kg Intake: Intake, IV Titration 124.821 89.322 109.486 Amount Heparin Sod,Pork in 0.45% 124.821 89.322 109.486 NaCl 25,000 unit In 0.45 % NaCl 1 250ml.bag @ 12 UNITS/KG/HR 7.348 mls/hr IV .Q24H [facility] Rx#: [id number] Other: Voiding Method Toilet Toilet Toilet # Voids 1 1 # Bowel Movements 1 - Labs CBC & Chem 7: 11/11/23 03:49 11/11/23 03:49 Labs: Abnormal Lab Results - Last 24 Hours (Table) 11/10/23 11/10/23 11/10/23 Range/Units 06:19 06:19 06:19 WBC 24.7 H (3.8-10.6) k/uL RBC 3.77 L (3.80-5.40) m/uL MCV 103.4 H (80.0-100.0) fL Plt Count 524 H (150-450) k/uL Neutrophils # (1.3-7.7) k/uL Monocytes # (0-1.0) k/uL APTT (22.0-30.0) sec Sodium 136 L (137-145) mmol/L Potassium (3.5-5.1) mmol/L Chloride 112 H (98-107) mmol/L Carbon Dioxide 16 L (22-30) mmol/L BUN 19 H (7-17) mg/dL Glucose 223 H (74-99) mg/dL POC Glucose (mg/dL) (70-110) mg/dL Calcium 8.0 L (8.4-10.2) mg/dL Phosphorus 1.9 L (2.5-4.5) mg/dL Magnesium 2.4 H (1.6-2.3) mg/dL C-Reactive Protein (<1.0) mg/dL Total Protein 4.6 L (6.3-8.2) g/dL Albumin 2.4 L (3.5-5.0) g/dL 11/10/23 11/10/23 11/10/23 Range/Units 06:19 11:51 16:44 WBC (3.8-10.6) k/uL RBC (3.80-5.40) m/uL MCV (80.0-100.0) fL Plt Count (150-450) k/uL Neutrophils # (1.3-7.7) k/uL Monocytes # (0-1.0) k/uL APTT 89.5 H (22.0-30.0) sec Sodium (137-145) mmol/L Potassium (3.5-5.1) mmol/L Chloride (98-107) mmol/L Carbon Dioxide (22-30) mmol/L BUN (7-17) mg/dL Glucose (74-99) mg/dL POC Glucose (mg/dL) 242 H 196 H (70-110) mg/dL Calcium (8.4-10.2) mg/dL Phosphorus (2.5-4.5) mg/dL Magnesium (1.6-2.3) mg/dL C-Reactive Protein (<1.0) mg/dL Total Protein (6.3-8.2) g/dL Albumin (3.5-5.0) g/dL 11/10/23 11/10/23 11/10/23 Range/Units 17:41 20:10 23:21 WBC (3.8-10.6) k/uL RBC (3.80-5.40) m/uL MCV (80.0-100.0) fL Plt Count (150-450) k/uL Neutrophils # (1.3-7.7) k/uL Monocytes # (0-1.0) k/uL APTT 37.9 H (22.0-30.0) sec Sodium (137-145) mmol/L Potassium (3.5-5.1) mmol/L Chloride (98-107) mmol/L Carbon Dioxide (22-30) mmol/L BUN (7-17) mg/dL Glucose (74-99) mg/dL POC Glucose (mg/dL) 239 H (70-110) mg/dL Calcium (8.4-10.2) mg/dL Phosphorus (2.5-4.5) mg/dL Magnesium (1.6-2.3) mg/dL C-Reactive Protein 21.7 H (<1.0) mg/dL Total Protein (6.3-8.2) g/dL Albumin (3.5-5.0) g/dL 11/11/23 11/11/23 11/11/23 Range/Units 03:49 03:49 03:49 WBC 24.0 H (3.8-10.6) k/uL RBC 3.73 L (3.80-5.40) m/uL MCV 101.8 H (80.0-100.0) fL Plt Count 486 H (150-450) k/uL Neutrophils # 18.9 H (1.3-7.7) k/uL Monocytes # 1.1 H (0-1.0) k/uL APTT 66.1 H (22.0-30.0) sec Sodium 134 L (137-145) mmol/L Potassium 3.3 L (3.5-5.1) mmol/L Chloride 112 H (98-107) mmol/L Carbon Dioxide 18 L (22-30) mmol/L BUN 21 H (7-17) mg/dL Glucose 246 H (74-99) mg/dL POC Glucose (mg/dL) (70-110) mg/dL Calcium 8.3 L (8.4-10.2) mg/dL Phosphorus 1.2 L (2.5-4.5) mg/dL Magnesium (1.6-2.3) mg/dL C-Reactive Protein (<1.0) mg/dL Total Protein (6.3-8.2) g/dL Albumin (3.5-5.0) g/dL 11/11/23 Range/Units 05:55 WBC (3.8-10.6) k/uL RBC (3.80-5.40) m/uL MCV (80.0-100.0) fL Plt Count (150-450) k/uL Neutrophils # (1.3-7.7) k/uL Monocytes # (0-1.0) k/uL APTT (22.0-30.0) sec Sodium (137-145) mmol/L Potassium (3.5-5.1) mmol/L Chloride (98-107) mmol/L Carbon Dioxide (22-30) mmol/L BUN (7-17) mg/dL Glucose (74-99) mg/dL POC Glucose (mg/dL) 255 H (70-110) mg/dL Calcium (8.4-10.2) mg/dL Phosphorus (2.5-4.5) mg/dL Magnesium (1.6-2.3) mg/dL C-Reactive Protein (<1.0) mg/dL Total Protein (6.3-8.2) g/dL Albumin (3.5-5.0) g/dL Microbiology - Last 24 Hours (Table) 11/05/23 20:50 Blood Culture - Final Blood 11/05/23 20:35 Blood Culture - Final Blood
[2023-11-11] MEDS ORDERED: POTASSIUM CHLORIDE 10 MEQ in WATER FOR INJECTION 1 100ML.BAG IVPB SCH (08:00)
[2023-11-11] MEDS: POTASSIUM PHOSPHATE 30 MMOL in SODIUM CHLORIDE 0.9% 250 ML IV ONE (10:07)
--- NOTE | 2023-11-11 11:02 | P.CONS ---
History of Present Illness - Reason for Consult Consult date: 11/10/23 Leukocytosis Requesting physician: Chanel Cedeno - Chief Complaint Abdominal pain and constipation x days - History of Present Illness Patient is a 88-year-old female with a past medical history significant for hypertension hyperlipidemia atrial fibrillation history of breast cancer chronic back pain presenting to the hospital 5 days ago for evaluation of constipation apparently the patient did not have any bowel movement for almost 11 days before the patient present to the hospital and has been complaining of intense abdominal pain and distention has taken [id number] medication without relief on presentation to the hospital the patient was afebrile did have low-grade fever of 99.8 on 11/06/2023 as well as 11/07/2023 patient was mildly tachycardic but not hypotensive or hypoxic no need for supplemental oxygen patient did have a white count of 14.1 which is up to 24.7 today that has prompted this infectious disease consultation workup so far include patient did have CT abdominal pelvis partial large bowel obstruction of the sigmoid colon secondary to colitis versus mass with upstream dilatation of the large and small bowel containing fluid and gas multiple indeterminant enhancing lesion within the liver abnormal soft tissue within the mesentery near the cecum possibly presenting stricture subsequently did have a liver MRI that shows multiple liver lesions concerning for metastatic disease patient is currently on a combination of Rocephin and Flagyl. At the time my evaluation the patient denies having any fever and chills complaining of abdominal pain describing it to be moderate intensity mostly to the left lower quadrant area no significant radiation to have some nausea vomiting still having no bowel movement Review of Systems Positive point and negatives has been mentioned in the HPI, complete review of systems was performed and all other systems are negative Past Medical History Past Medical History: Atrial Fibrillation, Cancer, Hyperlipidemia, Hypertension Additional Past Medical History / Comment(s): breast CA 1987, chroic back pain 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 BILAT KNEE REPL. BILAT CATARACT REM Past Anesthesia/Blood Transfusion Reactions: No Reported Reaction Past Psychological History: No Psychological Hx Reported Smoking Status: Never smoker Past Alcohol Use History: Daily Past Drug Use History: None Reported Medications and Allergies Home Medications Medication Instructions Recorded Confirmed Type Amiodarone HCl [Pacerone] 200 mg PO DAILY 05/19/22 11/05/23 History Apixaban [Eliquis] 5 mg PO BID 05/19/22 11/05/23 History Atorvastatin [Lipitor] 20 mg PO DAILY 05/19/22 11/05/23 History Calcium Carbonate [Calcium] 600 mg PO HS 05/19/22 11/05/23 History Cholecalciferol [Vitamin D3 (25 25 mcg PO HS 05/19/22 11/05/23 History Mcg = 1000 Iu)] Cyanocobalamin (Vitamin B-12) 1,000 mcg PO Q7D 05/19/22 11/05/23 History [Vitamin B-12] Levothyroxine Sodium [Synthroid] 100 mcg PO DAILY 05/19/22 11/05/23 History Losartan/Hydrochlorothiazide 1 tab PO DAILY 05/19/22 11/05/23 History [Losartan-Hctz 50-12.5 mg Tab] Multivit-Min/FA/Lycopen/Lutein 1 tab PO HS 05/19/22 11/05/23 History [Centrum Silver Tablet] Omeprazole [PriLOSEC] 20 mg PO DAILY 05/19/22 11/05/23 History Metoprolol Tartrate 25 mg PO BID 09/14/22 11/05/23 History Acetaminophen Tab [Tylenol Tab] 1,000 mg PO BID 11/05/23 11/05/23 History HYDROcodone/APAP 5-325MG [[place] 1 tab PO BID PRN 11/05/23 11/05/23 History 5-325] Magnesium Hydroxide [Milk of 2,400 mg PO DAILY PRN 11/05/23 11/05/23 History Magnesia] Mirabegron [Myrbetriq] 50 mg PO DAILY 11/05/23 11/05/23 History Super B Complex 1 tab PO Q7D 11/05/23 11/05/23 History traMADol HCL 50 mg PO TID PRN 11/05/23 11/05/23 History Allergies Allergy/AdvReac Type Severity Reaction Status Date / Time No Known Allergies Allergy Verified 11/05/23 18:15 Physical Exam Vitals: Vital Signs Temp Pulse Resp BP BP Pulse Ox 11/11/23 04:00 98.0 F 90 18 100/63 95 11/11/23 02:00 16 07//24 23:52 97.8 F 86 16 111/63 95 11/10/23 20:00 98.1 F 110 H 16 104/59 94 L 11/10/23 16:00 97.9 F 106 H 16 115/64 96 11/10/23 12:00 98.1 F 124 H 18 115/68 95 Intake and Output 11/10/23 11/11/23 11/11/23 22:59 06:59 14:59 Intake Total 52.788 56.698 Balance 52.788 56.698 Intake: Intake, IV Titration 52.788 56.698 Amount Heparin Sod,Pork in 0.45% 52.788 56.698 NaCl 25,000 unit In 0.45 % NaCl 1 250ml.bag @ 12 UNITS/KG/HR 7.348 mls/hr IV .Q24H [facility] Rx#: [id number] Other: Voiding Method Toilet Toilet # Voids 1 Weight 69.3 kg GENERAL DESCRIPTION: Elderly female lying in bed, no distress. No tachypnea or accessory muscle of respiration use. HEENT: Shows Pallor , no scleral icterus. Oral mucous membrane is dry. No pharyngeal erythema or thrush NECK: Trachea central, no thyromegaly. LUNGS: Unlabored breathing. Decreased breath sound at the base HEART: S1, S2, regular rate and rhythm. No loud murmur ABDOMEN: Soft, mild distention and tenderness most to the left lower quadrant area EXTREMITIES: No edema of feet. SKIN: No rash, no masses palpable. NEUROLOGICAL: The patient is awake, alert, oriented x3, mood and affect normal. Results CBC & Chem 7: 11/11/23 03:49 11/11/23 03:49 Labs: Abnormal Lab Results - Last 24 Hours (Table) 11/10/23 11/10/23 11/10/23 Range/Units 11:51 16:44 17:41 WBC (3.8-10.6) k/uL RBC (3.80-5.40) m/uL MCV (80.0-100.0) fL Plt Count (150-450) k/uL Neutrophils # (1.3-7.7) k/uL Monocytes # (0-1.0) k/uL APTT (22.0-30.0) sec Sodium (137-145) mmol/L Potassium (3.5-5.1) mmol/L Chloride (98-107) mmol/L Carbon Dioxide (22-30) mmol/L BUN (7-17) mg/dL Glucose (74-99) mg/dL POC Glucose (mg/dL) 242 H 196 H (70-110) mg/dL Calcium (8.4-10.2) mg/dL Phosphorus (2.5-4.5) mg/dL C-Reactive Protein 21.7 H (<1.0) mg/dL 11/10/23 11/10/23 11/11/23 Range/Units 20:10 23:21 03:49 WBC 24.0 H (3.8-10.6) k/uL RBC 3.73 L (3.80-5.40) m/uL MCV 101.8 H (80.0-100.0) fL Plt Count 486 H (150-450) k/uL Neutrophils # 18.9 H (1.3-7.7) k/uL Monocytes # 1.1 H (0-1.0) k/uL APTT 37.9 H (22.0-30.0) sec Sodium (137-145) mmol/L Potassium (3.5-5.1) mmol/L Chloride (98-107) mmol/L Carbon Dioxide (22-30) mmol/L BUN (7-17) mg/dL Glucose (74-99) mg/dL POC Glucose (mg/dL) 239 H (70-110) mg/dL Calcium (8.4-10.2) mg/dL Phosphorus (2.5-4.5) mg/dL C-Reactive Protein (<1.0) mg/dL 11/11/23 11/11/23 11/11/23 Range/Units 03:49 03:49 05:55 WBC (3.8-10.6) k/uL RBC (3.80-5.40) m/uL MCV (80.0-100.0) fL Plt Count (150-450) k/uL Neutrophils # (1.3-7.7) k/uL Monocytes # (0-1.0) k/uL APTT 66.1 H (22.0-30.0) sec Sodium 134 L (137-145) mmol/L Potassium 3.3 L (3.5-5.1) mmol/L Chloride 112 H (98-107) mmol/L Carbon Dioxide 18 L (22-30) mmol/L BUN 21 H (7-17) mg/dL Glucose 246 H (74-99) mg/dL POC Glucose (mg/dL) 255 H (70-110) mg/dL Calcium 8.3 L (8.4-10.2) mg/dL Phosphorus 1.2 L (2.5-4.5) mg/dL C-Reactive Protein (<1.0) mg/dL Microbiology - Last 24 Hours (Table) 11/05/23 20:50 Blood Culture - Final Blood 11/05/23 20:35 Blood Culture - Final Blood Assessment and Plan (1) Leukocytosis Current Visit: Yes Status: Acute Code(s): D72.829 - ELEVATED WHITE BLOOD CELL COUNT, UNSPECIFIED SNOMED Code(s): 144981622 (2) Partial bowel obstruction Current Visit: Yes Status: Acute Code(s): K56.600 - PARTIAL INTESTINAL OBSTRUCTION, UNSPECIFIED TO CAUSE SNOMED Code(s): 80554850042297363 Plan: 1patient with leukocytosis which is likely multifactorial in this patient admitted to hospital with abdominal pain and constipation has been diagnosed with a large bowel obstruction with a question of possible mass versus colitis mass may be favored as the patient did have multiple lesion in the liver concerning for metastatic disease with worsening of the white count despite being on Rocephin and Flagyl we need to broaden her antibiotic coverage 2-blood cultures will be repeated 3-discontinue Rocephin and Flagyl 4-start the patient on Zosyn 3.375 g every 8 hours 5-possible surgical exploration and in the morning and will benefit from any culture if any evidence of abscess Daughter at the bedside multiple question concern answered We will follow on clinical condition and cultures to further adjust medication if needed Thank you for this consultation we will follow the patient along with you Dictation was produced using [employer] dictation software. please excuse any grammatical, word or spelling errors. Time with Patient: Greater than 30
[2023-11-11 11:40] LABS: Glucose,Whole Blood 226 mg/dL (70-110)
--- NOTE | 2023-11-11 13:47 | P.PN ---
Subjective HISTORY OF PRESENT ILLNESS: This is a 88-year-old female with a past medical history significant for atrial fibrillation, SVT, hypertension, hyperlipidemia, and hypothyroidism. Patient follows in the office with Dr. Holloway. We have been asked to see the patient in consultation for cardiac risk assessment. Patient examined at the bedside. Patient states she presented to the hospital after not having a bowel movement for 11 days. She has been seen by general surgery and is scheduled to undergo open sigmoid colectomy with colostomy on 11/11/[address] Cedeno. Patient currently denies any chest pain or pressure. She denies any shortness of breath. Apparently, overnight the patient went tachycardic and she was prescribed IV heparin and IV amiodarone and transferred to [facility]. She converted to sinus mechanism and is maintaining sinus mechanism at the time of examination. DIAGNOSTICS: - Telemetry currently reveals sinus mechanism - Laboratory data: WBC 17.7. Hemoglobin 11.9. Platelet count 325. Sodium 139. Potassium 3.9. BUN 16. Creatinine 0.7. TSH 18.3. Free T41.67. - Current home cardiac medications include amiodarone 200 mg daily, metoprolol tartrate 25 mg twice a day, Lipitor 20 mg daily, Eliquis 5 mg twice a day. - Most recent echocardiogram obtained in July 2022 revealed ejection fraction 52%, mild aortic stenosis, mild mitral regurgitation, mild tricuspid regurgitation 11/09/2023 Patient examined this morning at the bedside. Patient currently denies chest pain or pressure. She denies shortness of breath. She remains in atrial fibrillation with decently controlled ventricular rates. Echocardiogram c ompleted revealing ejection fraction 35 to 40%, mild MR, mild 11/10/2023 Patient examined this morning the bedside. Patient seen up in the chair. Patient denies chest pain or pressure. She denies shortness of breath. Vital signs are stable. She remains in atrial fibrillation with heart rate between [id number]. 11/11/2023 Patient examined this morning at the bedside. Patient currently denies chest pain or pressure. She denies shortness of breath. She remains in atrial fibrillation with controlled ventricular rate. She remains on IV heparin. She is scheduled to undergo surgical intervention today. PHYSICAL EXAM: VITAL SIGNS: Reviewed. GENERAL: Well-developed in no acute distress. HEENT: Head is normocephalic. Pupils are equal, round. Sclerae anicteric. Mucous membranes of the mouth are moist. Neck supple. No JVD or thyromegaly LUNGS: Respirations even and unlabored. Lungs essentially clear to auscultation bilaterally. HEART: Irregular rate and rhythm. S1 and S2 heard. ABDOMEN: Soft. Nondistended. Nontender. EXTREMITIES: Normal range of motion. No clubbing or cyanosis. Peripheral pulses intact. No lower extremity edema NEUROLOGIC: Awake and alert. Oriented x 3. 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 Continue IV heparin in the interim. Continue metoprolol Continue IV Cardizem in the interim for optimal heart rate control for surgical intervention. Will discontinue postoperatively. Continue telemetry monitoring There are no absolute contraindications for patient to proceed with surgery from a cardiac standpoint. Tentatively scheduled 11/11/[address] Cedeno Further recommendations pending patient course Nurse practitioner note has been reviewed by physician. Signing provider agrees with the documented findings, assessment, and plan of care documented by BEHAVIOR THERAPIST as a scribe. Objective - Vital Signs Vital signs: Vital Signs Temp 98.0 F 11/11/23 08:00 Pulse 87 11/11/23 12:00 Resp 18 11/11/23 08:00 BP 107/63 11/11/23 12:00 Pulse Ox 95 11/11/23 12:00 FiO2 Intake & Output 11/10/23 11/11/23 11/11/23 18:59 06:59 18:59 Intake Total 89.322 508.569 9924.500 Balance 89.322 764.984 0422.500 Weight 69.3 kg 69.3 kg Intake: Intake, IV Titration 89.322 707.112 5201.500 Amount Diltiazem 125 mg In 120.833 Sodium Chloride 0.9% 100 ml @ 5 MG/HR 5 mls/hr IV .Q24H [facility] Rx#:[id number] Heparin Sod,Pork in 0.45% 89.322 109.486 NaCl 25,000 unit In 0.45 % NaCl 1 250ml.bag @ 12 UNITS/KG/HR 7.348 mls/hr IV .Q24H [facility] Rx#: [id number] Mvi, Adult No.4 with Vit 970.667 K 10 ml Trace (Conc-1Ml/ Dose) 1 ml Calcium Gluconate 1 gm Sodium Acetate 30 meq Magnesium Sulfate gm 0.5 gm Potassium Phosphate 15 mmol In Amino Acids 5 %/ Dextrose 20 % 1,000 ml @ 52 mls/hr IV .Q20H3M [facility] Rx#:[id number] Other: Voiding Method Toilet Toilet Toilet # Voids 1 1 # Bowel Movements 1 - Labs CBC & Chem 7: 11/11/23 03:49 11/11/23 03:49 Labs: Abnormal Lab Results - Last 24 Hours (Table) 11/10/23 11/10/23 11/10/23 Range/Units 16:44 17:41 20:10 WBC (3.8-10.6) k/uL RBC (3.80-5.40) m/uL MCV (80.0-100.0) fL Plt Count (150-450) k/uL Neutrophils # (1.3-7.7) k/uL Monocytes # (0-1.0) k/uL APTT 37.9 H (22.0-30.0) sec Sodium (137-145) mmol/L Potassium (3.5-5.1) mmol/L Chloride (98-107) mmol/L Carbon Dioxide (22-30) mmol/L BUN (7-17) mg/dL Glucose (74-99) mg/dL POC Glucose (mg/dL) 196 H (70-110) mg/dL Calcium (8.4-10.2) mg/dL Phosphorus (2.5-4.5) mg/dL C-Reactive Protein 21.7 H (<1.0) mg/dL 11/10/23 11/11/23 11/11/23 Range/Units 23:21 03:49 03:49 WBC 24.0 H (3.8-10.6) k/uL RBC 3.73 L (3.80-5.40) m/uL MCV 101.8 H (80.0-100.0) fL Plt Count 486 H (150-450) k/uL Neutrophils # 18.9 H (1.3-7.7) k/uL Monocytes # 1.1 H (0-1.0) k/uL APTT (22.0-30.0) sec Sodium 134 L (137-145) mmol/L Potassium 3.3 L (3.5-5.1) mmol/L Chloride 112 H (98-107) mmol/L Carbon Dioxide 18 L (22-30) mmol/L BUN 21 H (7-17) mg/dL Glucose 246 H (74-99) mg/dL POC Glucose (mg/dL) 239 H (70-110) mg/dL Calcium 8.3 L (8.4-10.2) mg/dL Phosphorus 1.2 L (2.5-4.5) mg/dL C-Reactive Protein (<1.0) mg/dL 11/11/23 11/11/23 11/11/23 Range/Units 03:49 05:55 11:35 WBC (3.8-10.6) k/uL RBC (3.80-5.40) m/uL MCV (80.0-100.0) fL Plt Count (150-450) k/uL Neutrophils # (1.3-7.7) k/uL Monocytes # (0-1.0) k/uL APTT 66.1 H (22.0-30.0) sec Sodium (137-145) mmol/L Potassium (3.5-5.1) mmol/L Chloride (98-107) mmol/L Carbon Dioxide (22-30) mmol/L BUN (7-17) mg/dL Glucose (74-99) mg/dL POC Glucose (mg/dL) 255 H 226 H (70-110) mg/dL Calcium (8.4-10.2) mg/dL Phosphorus (2.5-4.5) mg/dL C-Reactive Protein (<1.0) mg/dL Microbiology - Last 24 Hours (Table) 11/05/23 20:50 Blood Culture - Final Blood 11/05/23 20:35 Blood Culture - Final Blood
--- NOTE | 2023-11-11 15:36 | P.PN ---
Subjective Progress Note Date: 11/11/23 CHIEF COMPLAINT: Large bowel obstruction HISTORY OF PRESENT ILLNESS: The patient is a 88-year-old female admitted with abdominal distention including abdominal pain. Patient complains of abdominal distention. She is not having any flatus or bowel movements. Denies any nausea or vomiting. She was evaluated by cardiology and no absolute contraindication to proceed with surgery. PHYSICAL EXAM: VITAL SIGNS: Reviewed GENERAL: Well-developed in no acute distress. HEENT: No sclera icterus. Extraocular movements grossly intact. Moist buccal mucosa. Head is atraumatic, normocephalic. Hears conversational speech. No nasal drainage. NECK: Supple without lymphadenopathy. CHEST: Non-labored respirations and equal bilateral excursions. CARDIOVASCULAR: Palpable 2+ radial pulses. ABDOMEN: Distended. Diffuse tenderness. MUSCULOSKELETAL: No clubbing or cyanosis. NEUROLOGIC: No focal or lateralizing signs. Cranial nerves II through XII grossly intact. PSYCH: Appropriate affect. Alert and oriented to person, place and time. SKIN: Well perfused. Good skin turgor. ASSESSMENT: 1. Large bowel obstruction 2. Abdominal pain with distention 3. Cholecystitis 4. History of breast cancer 5. Diverticulosis 6. Abnormal CT scan for malignancy 7. Leukocytosis 8. Severe hypothyroidism 9. Atrial fibrillation with rapid ventricular response PLAN: -Patient scheduled for open sigmoid colectomy, colostomy with cholecystectomy tomorrow with Dr. Cedeno -N.p.o. after midnight Physician [employer] Developer note has been reviewed by physician. Signing provider agrees with the documented findings, assessment, and plan of care. Please see additional documentation below CHIEF COMPLAINT: Abdominal pain with distention HISTORY OF PRESENT ILLNESS: The patient is a 88-year-old female admitted with abdominal distention including abdominal pain. Her daughter is at bedside. Patient is not passing much flatus or having bowel movement. Patient has A-fib with RVR and on heparin drip. Her heparin has been held due to her pending procedure. She is on TPN for nutrition. REVIEW OF ORGAN SYSTEMS: CARDIOVASCULAR: Has atrial fibrillation with hypertensive heart disease and hyperlipidemia. On chronic blood thinners. GASTROINTESTINAL: Prior diarrhea for colonoscopy August 2022 BREAST: History of breast cancer with lumpectomy. PHYSICAL EXAM: VITALS: Reviewed CONSTITUTIONAL: Well developed and in no acute distress. EYES: Conjuctivae without sclera icterus. Extraocular movements grossly intact. HEAD, EARS, NOSE, THROAT: Moist buccal mucosa. Head is atraumatic, normocephalic. Hears conversational speech. No nasal drainage. RESPIRATORY: Non-labored respirations and equal bilateral excursions. No gross wheezes. CARDIOVASCULAR: Palpable 2+ radial pulses. ABDOMEN: Abdominal distention without peritonitis. MUSCULOSKELETAL: No clubbing cyanosis or edema SKIN: Warm and well perfused with good skin turgor. NEUROLOGIC: Cranial nerves II through XII grossly intact. No focal or lateralizing signs. PSYCH: Appropriate affect. Alert and oriented to person, place and time. Di splays appropriate insight. CLINCAL LABS: Reviewed. WBC persistent at 24,000. ASSESSMENT: 1. Abdominal pain with distention 2. Hyponatremia 3. History of breast cancer 4. Large bowel obstruction diverticulosis 5. Diverticulosis diverticulitis 6. Abnormal CT scan for malignancy 7. Leukocytosis 8. Severe hypothyroidism 9. Atrial fibrillation with rapid ventricular response 10. Cholecystitis PLAN: 1. Patient is on heparin drip for atrial fibrillation RVR. To minimize risk of complications and to allow for placement epidural, at least 8 hours is being requested. Will hold her heparin drip at midnight. 2. PT PTT and INR at 5 AM prior to her surgery on the day of her procedure 3. May have clear liquids as surgery is pending for tomorrow 4. Overall, patient is elevated risk due to comorbidities, general malnutrition, leukocytosis, atrial fibrillation with RVR. 5. Open colectomy with colostomy described and placement of temporary ostomy reviewed with patient and daughter at bedside Objective - Vital Signs Vital signs: Vital Signs Temp 98.0 F 11/11/23 08:00 Pulse 87 11/11/23 12:00 Resp 18 11/11/23 08:00 BP 107/63 11/11/23 12:00 Pulse Ox 95 11/11/23 12:00 FiO2 Intake & Output 11/10/23 11/11/23 11/11/23 18:59 06:59 18:59 Intake Total 89.322 870.363 7643.500 Balance 89.322 702.865 1805.500 Weight 69.3 kg 69.3 kg Intake: Intake, IV Titration 89.322 970.403 7577.500 Amount Diltiazem 125 mg In 120.833 Sodium Chloride 0.9% 100 ml @ 5 MG/HR 5 mls/hr IV .Q24H [facility] Rx#:[id number] Heparin Sod,Pork in 0.45% 89.322 109.486 NaCl 25,000 unit In 0.45 % NaCl 1 250ml.bag @ 12 UNITS/KG/HR 7.348 mls/hr IV .Q24H [facility] Rx#: [id number] Mvi, Adult No.4 with Vit 970.667 K 10 ml Trace (Conc-1Ml/ Dose) 1 ml Calcium Gluconate 1 gm Sodium Acetate 30 meq Magnesium Sulfate gm 0.5 gm Potassium Phosphate 15 mmol In Amino Acids 5 %/ Dextrose 20 % 1,000 ml @ 52 mls/hr IV .Q20H3M [facility] Rx#:[id number] Other: Voiding Method Toilet Toilet Toilet # Voids 1 1 # Bowel Movements 1 - Labs CBC & Chem 7: 11/11/23 03:49 11/11/23 03:49 Labs: Abnormal Lab Results - Last 24 Hours (Table) 11/10/23 11/10/23 11/10/23 Range/Units 16:44 17:41 20:10 WBC (3.8-10.6) k/uL RBC (3.80-5.40) m/uL MCV (80.0-100.0) fL Plt Count (150-450) k/uL Neutrophils # (1.3-7.7) k/uL Monocytes # (0-1.0) k/uL APTT 37.9 H (22.0-30.0) sec Sodium (137-145) mmol/L Potassium (3.5-5.1) mmol/L Chloride (98-107) mmol/L Carbon Dioxide (22-30) mmol/L BUN (7-17) mg/dL Glucose (74-99) mg/dL POC Glucose (mg/dL) 196 H (70-110) mg/dL Calcium (8.4-10.2) mg/dL Phosphorus (2.5-4.5) mg/dL C-Reactive Protein 21.7 H (<1.0) mg/dL 11/10/23 11/11/23 11/11/23 Range/Units 23:21 03:49 03:49 WBC 24.0 H (3.8-10.6) k/uL RBC 3.73 L (3.80-5.40) m/uL MCV 101.8 H (80.0-100.0) fL Plt Count 486 H (150-450) k/uL Neutrophils # 18.9 H (1.3-7.7) k/uL Monocytes # 1.1 H (0-1.0) k/uL APTT (22.0-30.0) sec Sodium 134 L (137-145) mmol/L Potassium 3.3 L (3.5-5.1) mmol/L Chloride 112 H (98-107) mmol/L Carbon Dioxide 18 L (22-30) mmol/L BUN 21 H (7-17) mg/dL Glucose 246 H (74-99) mg/dL POC Glucose (mg/dL) 239 H (70-110) mg/dL Calcium 8.3 L (8.4-10.2) mg/dL Phosphorus 1.2 L (2.5-4.5) mg/dL C-Reactive Protein (<1.0) mg/dL 11/11/23 11/11/23 11/11/23 Range/Units 03:49 05:55 11:35 WBC (3.8-10.6) k/uL RBC (3.80-5.40) m/uL MCV (80.0-100.0) fL Plt Count (150-450) k/uL Neutrophils # (1.3-7.7) k/uL Monocytes # (0-1.0) k/uL APTT 66.1 H (22.0-30.0) sec Sodium (137-145) mmol/L Potassium (3.5-5.1) mmol/L Chloride (98-107) mmol/L Carbon Dioxide (22-30) mmol/L BUN (7-17) mg/dL Glucose (74-99) mg/dL POC Glucose (mg/dL) 255 H 226 H (70-110) mg/dL Calcium (8.4-10.2) mg/dL Phosphorus (2.5-4.5) mg/dL C-Reactive Protein (<1.0) mg/dL Microbiology - Last 24 Hours (Table) 11/05/23 20:50 Blood Culture - Final Blood 11/05/23 20:35 Blood Culture - Final Blood
[2023-11-11] MEDS: MVI, ADULT NO.4 WITH VIT K 10 ML, TRACE (CONC-1ML/DOSE) 1 ML, CALCIUM GLUCONATE 1 GM, S... IV SCH (16:13)
--- NOTE | 2023-11-11 16:19 | CDI ---
Documentation Clarification Form Date: 11/11/2023 04:15:30 PM From: Yary Laughlin RN, CCDS Phone: [phone] Admit Date: 11/05/2023 08:18:00 PM Patient Name: Melody Bailey Visit Number: [id number] Discharge Date: ATTENTION: The Clinical Documentation Specialists (CDI) and [facility] Coding Staff appreciate your assistance in clarifying documentation. Please respond to the clarification below the line at the bottom and electronically sign. The CDI & [facility] Coding staff will review the response and follow-up if needed. Please note: Queries are made part of the Legal Health Record. If you have any questions, please contact the author of this message via ITS. Dr. Ean Ferguson Your patient has the documented diagnosis of unspecified heart failure in your ongoing progress notes starting on 11/08/23 [insert date, location. Additional information regarding the acuity of heart failure is requested. History/Risk Factors: IBS, hypothyroid, hypertension, breast cancer, and A-fib Clinical Indicators: 88-year-old female presents with abdominal pain associated with constipation Abdominal pain, likely due to partial large bowel obstruction, malignancy vs. colitis 11/07 Echocardiogram doppler: left ventricular ejection fraction 35 to 40%. Mildly increased left ventricular wall thickness. Mild mitral regurgitation. Mild aortic stenosis. No pericardial effusion. 11/08 CXR: COPD, Possible trace bilateral pleural effusion 11/07 VS/Pulse OX: (09:59) 143/63 68 18 97.8 97% RA Treatment: Cardiac/Telemetry monitoring Metoprolol tartrate 25 MG PO BID Lipitor 20 MG PO Daily In your professional opinion, can you please clarify the acuity of the heart failure if known? [ ] Acute Systolic Heart Failure (reduced EF) [ x ] Chronic Systolic Heart Failure (reduced EF) [ ] Acute on Chronic Systolic Heart Failure (reduced EF) [ ] Acute Diastolic Heart Failure (preserved EF) [ ] Chronic Diastolic Heart Failure (preserved EF) [ ] Acute on Chronic Diastolic Heart Failure (preserved EF) [ ] Acute Systolic & Diastolic Heart Failure [ ] Chronic Systolic & Diastolic Heart Failure [ ] Acute on Chronic Heart Failure Systolic & Diastolic Heart Failure [ ] Other, please specify [ ] Unable to determine (Template Last Revised: June 2020) MTDD
--- NOTE | 2023-11-11 16:34 | P.PN ---
Subjective Progress Note Date: 11/11/23 Principal diagnosis: Reason for follow-up is leukocytosis Patient is a 88-year-old female with a past medical history significant for hypertension hyperlipidemia atrial fibrillation history of breast cancer chronic back pain presenting to the hospital for evaluation ab dominal pain and constipation has been diagnosed with a large bowel obstruction and concern for possible liver mets did have persistent worsening white count prompting this consultation. On today's evaluation that is 11/11/2023, the patient continues to be afebrile, the patient is on room air and breathing comfortably, the Pt denies having any chest pain or cough, the patient still complaining of abdominal pain but no worsening controlled with the pain medication and did not have any bowel movem ent no nausea vomiting. Patient white count is 24,000 with a creatinine 0.52 blood culture repeat cu rrently pending Objective - Vital Signs Vital signs: Vital Signs Temp 98.0 F 11/11/23 04:00 Pulse 90 11/11/23 04:00 Resp 18 11/11/23 04:00 BP 100/63 11/11/23 04:00 Pulse Ox 95 11/11/23 04:00 FiO2 Intake & Output 11/10/23 11/11/23 11/11/23 18:59 06:59 18:59 Intake Total 89.322 109.486 Balance 89.322 109.486 Weight 69.3 kg Intake: Intake, IV Titration 89.322 109.486 Amount Heparin Sod,Pork in 0.45% 89.322 109.486 NaCl 25,000 unit In 0.45 % NaCl 1 250ml.bag @ 12 UNITS/KG/HR 7.348 mls/hr IV .Q24H [facility] Rx#: [id number] Other: Voiding Method Toilet Toilet # Voids 1 1 # Bowel Movements 1 - Exam GENERAL DESCRIPTION: An elderly female lying in bed in no distress RESPIRATORY SYSTEM: Unlabored breathing , decreased breath sounds at bases HEART: S1 S2 regular rate and rhythm , ABDOMEN: Soft , mild distention EXTREMITIES: No edema feet - Labs CBC & Chem 7: 11/11/23 03:49 11/11/23 03:49 Labs: Abnormal Lab Results - Last 24 Hours (Table) 11/10/23 11/10/23 11/10/23 Range/Units 11:51 16:44 17:41 WBC (3.8-10.6) k/uL RBC (3.80-5.40) m/uL MCV (80.0-100.0) fL Plt Count (150-450) k/uL Neutrophils # (1.3-7.7) k/uL Monocytes # (0-1.0) k/uL APTT (22.0-30.0) sec Sodium (137-145) mmol/L Potassium (3.5-5.1) mmol/L Chloride (98-107) mmol/L Carbon Dioxide (22-30) mmol/L BUN (7-17) mg/dL Glucose (74-99) mg/dL POC Glucose (mg/dL) 242 H 196 H (70-110) mg/dL Calcium (8.4-10.2) mg/dL Phosphorus (2.5-4.5) mg/dL C-Reactive Protein 21.7 H (<1.0) mg/dL 11/10/23 11/10/23 11/11/23 Range/Units 20:10 23:21 03:49 WBC 24.0 H (3.8-10.6) k/uL RBC 3.73 L (3.80-5.40) m/uL MCV 101.8 H (80.0-100.0) fL Plt Count 486 H (150-450) k/uL Neutrophils # 18.9 H (1.3-7.7) k/uL Monocytes # 1.1 H (0-1.0) k/uL APTT 37.9 H (22.0-30.0) sec Sodium (137-145) mmol/L Potassium (3.5-5.1) mmol/L Chloride (98-107) mmol/L Carbon Dioxide (22-30) mmol/L BUN (7-17) mg/dL Glucose (74-99) mg/dL POC Glucose (mg/dL) 239 H (70-110) mg/dL Calcium (8.4-10.2) mg/dL Phosphorus (2.5-4.5) mg/dL C-Reactive Protein (<1.0) mg/dL 11/11/23 11/11/23 11/11/23 Range/Units 03:49 03:49 05:55 WBC (3.8-10.6) k/uL RBC (3.80-5.40) m/uL MCV (80.0-100.0) fL Plt Count (150-450) k/uL Neutrophils # (1.3-7.7) k/uL Monocytes # (0-1.0) k/uL APTT 66.1 H (22.0-30.0) sec Sodium 134 L (137-145) mmol/L Potassium 3.3 L (3.5-5.1) mmol/L Chloride 112 H (98-107) mmol/L Carbon Dioxide 18 L (22-30) mmol/L BUN 21 H (7-17) mg/dL Glucose 246 H (74-99) mg/dL POC Glucose (mg/dL) 255 H (70-110) mg/dL Calcium 8.3 L (8.4-10.2) mg/dL Phosphorus 1.2 L (2.5-4.5) mg/dL C-Reactive Protein (<1.0) mg/dL Microbiology - Last 24 Hours (Table) 11/05/23 20:50 Blood Culture - Final Blood 11/05/23 20:35 Blood Culture - Final Blood Assessment and Plan (1) Leukocytosis Current Visit: Yes Status: Acute Code(s): D72.829 - ELEVATED WHITE BLOOD CELL COUNT, UNSPECIFIED SNOMED Code(s): 712841906 (2) Partial bowel obstruction Current Visit: Yes Status: Acute Code(s): K56.600 - PARTIAL INTESTINAL OBSTRUCTION, UNSPECIFIED TO CAUSE SNOMED Code(s): 51888166461919817 Plan: 1patient with leukocytosis which is likely multifactorial in this patient admitted to hospital with abdominal pain and constipation has been diagnosed with a large bowel obstruction with a question of possible mass versus colitis mass may be favored as the patient did have multiple lesion in the liver concerning for metastatic disease with worsening of the white count despite being on Rocephin and Flagyl we need to broaden her antibiotic coverage 2-blood cultures has been repeated currently pending 3-patient to continue with Zosyn 3.375 g every 8 hours, awaiting surgical exploration scheduled for this afternoon Dictation was produced using [email or web address] dictation software. please excuse any gram matical, word or spelling errors. Time with Patient: Less than 30
[2023-11-11 18:02] LABS: Glucose,Whole Blood 146 mg/dL (70-110)
[2023-11-11 23:54] LABS: Glucose,Whole Blood 212 mg/dL (70-110)
[2023-11-12 06:18] LABS: Glucose,Whole Blood 232 mg/dL (70-110)
[2023-11-12 06:38] LABS: Basophils # (A) 0.1 k/uL (0-0.2); Basophils % (A) 0 %; Eosinophils # (A) 0.1 k/uL (0-0.7); Eosinophils % (A) 0 %; HCT 36.7 % (34.0-46.0); HGB 11.7 gm/dL (11.4-16.0); Hypochromasia Slight; Lymphocytes # (A) 3.4 k/uL (1.0-4.8); Lymphocytes % (A) 16 %; MCH 32.6 pg (25.0-35.0); MCHC 31.8 g/dL (31.0-37.0); MCV 102.6 fL (80.0-100.0); Macrocytosis Slight; Mean Platelet Volume 7.8; Monocytes # (A) 0.6 k/uL (0-1.0); Monocytes % (A) 3 %; Neutrophils # (A) 16.8 k/uL (1.3-7.7); Neutrophils % (A) 79 %; Platelet Count 481 k/uL (150-450); RBC 3.58 m/uL (3.80-5.40); RDW 13.8 % (11.5-15.5); WBC 21.2 k/uL (3.8-10.6)
[2023-11-12 07:39] LABS: African American GFR (CKD) >90 (>60 ml/min/1.73 sqM); Anion Gap 5 mmol/L; Blood Urea Nitrogen 21 mg/dL (7-17); Calcium 8.4 mg/dL (8.4-10.2); Carbon Dioxide 20 mmol/L (22-30); Chloride 109 mmol/L (98-107); Glucose 213 mg/dL (74-99); Magnesium 2.1 mg/dL (1.6-2.3); Non-African American GFR(CKD) 89 (>60 ml/min/1.73 sqM); Phosphorus 2.1 mg/dL (2.5-4.5); Potassium 3.8 mmol/L (3.5-5.1); Sodium 134 mmol/L (137-145)
[2023-11-12 07:41] LABS: Partial Thromboplastin Time 27.7 sec (22.0-30.0); Prothrombin Time 10.8 sec (10.0-12.5)
[2023-11-12] MEDS: IV FLUID CONTINUATION 1,000 ML IV ONE (07:54)
[2023-11-12 08:06] LABS: Glucose,Whole Blood 193 mg/dL (70-110)
[2023-11-12] MEDS: ONDANSETRON 4 MG/2 ML VIAL IVP STA (08:15)
[2023-11-12] MEDS: fentaNYL (PF) 50 MCG/ML 2 ML AMP IVP PRN (08:16)
--- NOTE | 2023-11-12 08:45 | P.PN ---
Progress Note - Text Progress Note Date: 11/12/23 Patient seen and evaluated. White blood cell count trending downward. Heparin had been held since midnight for safety of placement of epidural. PTT PT and INR normal. Patient has abnormal study for cholecystitis with hydrops. Cholecystectomy with colectomy and diverting ostomy described biopsies for malignancy to be performed. Benefits and risks described to patient and family.
[2023-11-12] MEDS: MIDAZOLAM 2 MG/2 ML VIAL IVP ONE (09:07)
[2023-11-12] MEDS: fentaNYL (PF) 50 MCG/1 ML VIAL IVP ONE (09:08)
[2023-11-12] MEDS ORDERED: NALOXONE 0.4 MG/ML 1 ML VIAL IV PRN (09:20)
--- NOTE | 2023-11-12 09:22 | P.ANPRN ---
Procedure Note - Anesthesia - Epidural/Spinal Epidural Continuous Time Out Performed: Yes Date of Procedure: 11/12/23 Procedure Start Time: :09 Procedure Stop Time: 09:16 Location of Patient: PreOp Indication: Acute Post-Operative Pain, Requested by Surgeon Sedation Type: Sedate with meaningful contact maintained Preparation: Sterile Dressing Position: Sitting Catheter: Indwelling Needle Guage: 18 Blood Aspirated: No Pain Paresthesia on Injection Noted: No Events: Uneventful and Well Tolerated
[2023-11-12] MEDS ORDERED: ceFAZolin 1 GM/50 ML BAG (PMX) ONE (09:34)
[2023-11-12] MEDS ORDERED: SUCCINYLCHOLINE CHLORIDE 200 MG/10 ML VIAL IV ONE (09:34)
[2023-11-12] MEDS ORDERED: KETAMINE HCL IN 0.9 % NACL 50 MG/5 ML SYRINGE ONE (09:34)
[2023-11-12] MEDS ORDERED: LIDOCAINE 1% INJ 10MG/ML (20 ML MDV) ONE (09:34)
[2023-11-12] MEDS ORDERED: ROCURONIUM 10 MG/ML (5 ML VIAL) IV ONE (09:34)
[2023-11-12] MEDS ORDERED: HEPARIN SODIUM,PORCINE 5,000 UNIT/ML 1 ML VIAL ONE (09:34)
[2023-11-12] MEDS ORDERED: PHENYLEPHRINE 10 MG/ML VIAL ONE (09:34)
[2023-11-12] MEDS ORDERED: PHENYLEPHRINE-0.9% NACL SYG 1,000 MCG/10 ML SYRINGE ONE (09:34)
[2023-11-12] MEDS ORDERED: SUGAMMADEX SODIUM 200 MG/2 ML SDV IV ONE (09:34)
[2023-11-12] MEDS ORDERED: ETOMIDATE 2 MG/ML 10 ML VIAL ONE (09:34)
[2023-11-12] MEDS: LACTATED RINGERS 1,000 ML IV ONE (11:21)
--- NOTE | 2023-11-12 11:41 | P.PN ---
Subjective Progress Note Date: 11/12/23 Subjective Patient seen and examined at bedside. She is s/p open sigmoid colectomy with colostomy and cholecystectomy. Postop day 0. She was in and out of sleep. However, daughter was present at bedside. Was told surgical course was uncomplicated. They removed a small nodule from the liver, and was sent to pathology. Mass found in the large bowel that was causing blockage was sent to pathology. Pertinent positives and negatives as discussed above, a complete review of sy stems was performed and all other systems are negative. Vitals: Signs Reviewed Physical Exam: General: nontoxic, no distress, appears at stated age Derm: warm, dry, intact Head: atraumatic, normocephalic, symmetric Eyes: EOMI, no lid lag, anicteric sclera Mouth: no lip lesion, mucus membranes moist Cardiovascular: S1 S2 reg, no murmur, rubs, or gallops Lungs: CTA bilateral, no rhonchi, no rales, no accessory muscle use Abdominal: distended, tender to palpataion, no appreciable organomegaly Extremities: no gross muscle atrophy, no edema, no contractures Neuro: Alert, Oriented, CNII-XII grossly intact Psych: well appearing, appropriate affect Data Received Today: Pertinent Labs: CBC WBC 21.2, RBC 3.58, MCV 102.6, Plt 481. Coag panel wnl. BMP Na 134, Cl 109, bicarb 20, BUN 21, Cr. 0.48, glu 213, Phos 2.1, Mag 2.1. Imaging: No new imaging Assessment and Plan: 88-year-old female with past medical history of IBS, hypothyroid, hypertension, breast cancer, and A-fib presents with abdominal pain associated with con stipation. S/p sigmoid colectomy with costomy and cholecystectomy. Postop day 0. Abdominal pain, likely due to partial large bowel obstruction malignancy vs. colitis Multiple hepatic mass lesions - Continue n.p.o. diet. Continue IV fluids 75 cc normal saline -Intake/output ordered -Avoid excessive opiate use for now with moprine 2 mg ivp q4h prn for severe pain -General surgery following, likely surgery on , Eliquis discontinued - blood cultures negative so far - For leukocytosis due to suspected colitis. ID discontinued Flagyl 500 mg, IV ceftriaxone 2gm. Was put on Zosyn 4.375g IV TID on 11/09 by ID. - Repeat CBC and BMP -Oncology following, elevated AFP 12.4, other tumor markers WNL. CA 27-29 pending -MRI Liver results: Multiple liver lesions concerning for metastatic disease possibly gastrointestinal in origin given prior CT 11/05/2023. Finding could be secondary to mesenteric mass with tethering multiple loops of bowel. Discussed results with patient. -Right-sided PICC line in place for TPN Patient spoke with Dr. Cedeno about ex lap procedure and possible cholecystectomy. Will wait for results from pathology on liver lesion and large bowel mass. Metabolic acidosis with high anion gap Lactic acid 1.0 VBG: pH 7.35 CO2 23, HCO3 13 VBG shows compensated respiratory alkalosis. Could be due to hyperCl from normal saline. Is improving with LR at 75 cc/hr. Hypokalemia Potassium 3.2 40 mEq potassium chloride PO ordered Follow-up with CMP Atrial fibrillation w/ rvr, now rate controlled Had episode of A-fib with RVR. heart rate >180. Was transferred to for further cardiac assessment [facility] for scheduled surgery. Patient on IV heparin drip, monitor APTT, monitor for bleeding Continue 200 mg amiodarone p.o. daily Monitoring on telemetry Cardiology note reviewed. 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 Mildly increased left ventricular wall thickness Mild mitral regurgitation. Mild aortic stenosis. No pericardial effusion. Patient appears euvolemic Metoprolol tartrate 25 mg PO twice daily. Cardiology following. 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 As patient is also on IV fluids -Hold losartan Dyslipidemia Atorvastatin 20 mg PO F: NaCl 0.9% @ 75 mls/hr E: Replete as needed N: TPN A: fall precautions, hypoglycemia protocol DVT ppx: d/c Heparin drip 4 hrs prior to surgery. SCDs Code status: No code w/instructions Anticipated discharge place: pending clinical course Anticipated discharge time: pending clinical course I have seen and evaluated the patient today. Discussed with the resident and agree with the residents subjective and objective as documented in the resident's note. The assessment and plan was discussed and outlined as below. Patient seen post OR. Underwent colon resection with colostomy, liver biopsy, cholecystectomy. She reports abdominal pain at the site of surgery. Currently has epidural for pain control. BP 120s/80s with HR in the 100-110 off Cardizem drip. CBC WBC 21.2, RBC 3.58, MCV 102.6, Plt 481. Coag panel wnl. BMP Na 134, Cl 109, bicarb 20, BUN 21, Cr. 0.48, glu 213, Phos 2.1, Mag 2.1. Partial SBO, colitis versus malignancy: Status post OR. IVF as below. Morphine 2 g IV Q4H PRN for pain. IV antibiotics as below. Follow pathology report. TPN for nutrition started 11/08. Surgery on board. Sepsis likely due to colitis: Flagyl and Rocephin switched to Zosyn 3.375g IV TID on 11/09 by ID. LR at 75 cc/hr. BCx negative so far. Metabolic acidosis: Possibly related to above. Lactic acid negative. VBG shows compensated respiratory alkalosis. Could be due to hyperCl from normal saline. Improving with LR at 75 cc/hr. Atrial fibrillation with RVR: Maintain Mg > 2 and K > 4. Eliquis on hold. Resume heparin drip when OK with surgery. Cardizem drip on hold post surgery, resume if necessary. Monitor APTT. Amiodarone 200 mg PO QD. Metoprolol 25 mg PO TID. Cardiology following. Liver and Femoral lesions: CA 15-3, 19-9, CEA 4.9. AFP elvated 12.4. Follow pathology results from biopsies done during surgery. Oncology following. HFrEF: EF 35-40%. Euvolemic. Metoprolol as above. ACEi on hold due to hypotension. Macrocytosis: B12 and Folate wnl. Subclinical hypothyroidism: Likely due to acute illness. Continue Synthroid 100 mcg PO QD. Repeat TSH/FT4 in 6 weeks. Urinary incontinence: Myrbetriq when able to PO. Hypertension: Losartan/HCTZ on hold. Metoprolol as above. Cardizem drip as above. Dyslipidemia: Lipitor 20 mg PO QD. Resolved: Hyponatremia, Hypoglycemia, Hypokalemia Objective - Vital Signs Vital signs: Vital Signs Temp 97.6 F 11/12/23 07:48 Pulse 104 H 11/12/23 09:21 Resp 16 11/12/23 09:21 BP 137/66 11/12/23 09:21 Pulse Ox 95 11/12/23 09:21 FiO2 Intake & Output 11/11/23 11/12/23 11/12/23 18:59 06:59 18:59 Intake Total 1447.500 270.032 550 Balance 1447.500 270.032 550 Weight 69.3 kg 72.3 kg Intake: IV 70 550 Invasive Line 2 20 Invasive Line 3 20 Invasive Line 4 20 Invasive Line 5 10 Intake, IV Titration 1091.500 200.032 Amount Diltiazem 125 mg In 120.833 46.25 Sodium Chloride 0.9% 100 ml @ 5 MG/HR 5 mls/hr IV .Q24H SARAH Rx#:[id number] Heparin Sod,Pork in 0.45% 153.782 NaCl 25,000 unit In 0.45 % NaCl 1 250ml.bag @ 12 UNITS/KG/HR 7.348 mls/hr IV .Q24H SARAH Rx#: [id number] Mvi, Adult No.4 with Vit 970.667 K 10 ml Trace (Conc-1Ml/ Dose) 1 ml Calcium Gluconate 1 gm Sodium Acetate 30 meq Magnesium Sulfate gm 0.5 gm Potassium Phosphate 15 mmol In Amino Acids 5 %/ Dextrose 20 % 1,000 ml @ 52 mls/hr IV .Q20H3M SARAH Rx#:[id number] Oral 356 Other: Voiding Method Toilet Toilet # Voids 1 - Labs CBC & Chem 7: 11/12/23 06:16 11/12/23 06:16 Labs: Abnormal Lab Results - Last 24 Hours (Table) 11/11/23 11/11/23 11/11/23 Range/Units 11:35 17:51 23:53 WBC (3.8-10.6) k/uL RBC (3.80-5.40) m/uL MCV (80.0-100.0) fL Plt Count (150-450) k/uL Neutrophils # (1.3-7.7) k/uL Sodium (137-145) mmol/L Chloride (98-107) mmol/L Carbon Dioxide (22-30) mmol/L BUN (7-17) mg/dL Creatinine (0.52-1.04) mg/dL Glucose (74-99) mg/dL POC Glucose (mg/dL) 226 H 146 H 212 H (70-110) mg/dL Phosphorus (2.5-4.5) mg/dL 11/12/23 11/12/23 11/12/23 Range/Units 06:16 06:16 06:16 WBC 21.2 H (3.8-10.6) k/uL RBC 3.58 L (3.80-5.40) m/uL MCV 102.6 H (80.0-100.0) fL Plt Count 481 H (150-450) k/uL Neutrophils # 16.8 H (1.3-7.7) k/uL Sodium 134 L (137-145) mmol/L Chloride 109 H (98-107) mmol/L Carbon Dioxide 20 L (22-30) mmol/L BUN 21 H (7-17) mg/dL Creatinine 0.48 L (0.52-1.04) mg/dL Glucose 213 H (74-99) mg/dL POC Glucose (mg/dL) 232 H (70-110) mg/dL Phosphorus 2.1 L (2.5-4.5) mg/dL 11/12/23 Range/Units 08:04 WBC (3.8-10.6) k/uL RBC (3.80-5.40) m/uL MCV (80.0-100.0) fL Plt Count (150-450) k/uL Neutrophils # (1.3-7.7) k/uL Sodium (137-145) mmol/L Chloride (98-107) mmol/L Carbon Dioxide (22-30) mmol/L BUN (7-17) mg/dL Creatinine (0.52-1.04) mg/dL Glucose (74-99) mg/dL POC Glucose (mg/dL) 193 H (70-110) mg/dL Phosphorus (2.5-4.5) mg/dL Microbiology - Last 24 Hours (Table) 11/10/23 17:41 Blood Culture - Preliminary Blood
[2023-11-12] MEDS: ROPIVACAINE 250 MG, HYDROMORPHONE (PF) 5 MG in SODIUM CHLORIDE 0.9% 200 ML EPIDURAL PRN (13:13)
--- NOTE | 2023-11-12 13:30 | P.PN ---
Progress Note - Text Patient is off the floor (in OR) during cardiology rounds. Patient will be reevaluated tomorrow. Please call with questions or concerns.
[2023-11-12 16:20] LABS: Glucose,Whole Blood 299 mg/dL (70-110)
[2023-11-12] MEDS ORDERED: BENZOCAINE/MENTHOL LOZENG 1 EACH LOZENGE MUCOUS MEM PRN (18:37)
[2023-11-12] MEDS: ALVIMOPAN 12 MG CAPSULE PO SCH (22:00)
[2023-11-12] MEDS: HEPARIN SODIUM,PORCINE 5,000 UNIT/ML 1 ML VIAL SQ SCH (22:00)
[2023-11-13 00:10] LABS: Glucose,Whole Blood 202 mg/dL (70-110)
[2023-11-13 05:31] LABS: Glucose,Whole Blood 213 mg/dL (70-110)
--- NOTE | 2023-11-13 06:53 | P.PN ---
Progress Note - Text Progress Note Date: 11/13/23 post op day one status post open colectomy , ,epidural catheter placed for post op pain control , pateints on continous infusion of Diludid , bupivacain 7 ml per hour , vital signs stable , VAS 0-1/10 , no motor defecit , epidural site look fine , we will continue the current management
[2023-11-13 07:54] LABS: African American GFR (CKD) >90 (>60 ml/min/1.73 sqM); Anion Gap 7 mmol/L; Blood Urea Nitrogen 23 mg/dL (7-17); Calcium 7.5 mg/dL (8.4-10.2); Carbon Dioxide 21 mmol/L (22-30); Chloride 113 mmol/L (98-107); Glucose 178 mg/dL (74-99); Magnesium 1.9 mg/dL (1.6-2.3); Non-African American GFR(CKD) 86 (>60 ml/min/1.73 sqM); Phosphorus 2.4 mg/dL (2.5-4.5); Potassium 3.4 mmol/L (3.5-5.1); Sodium 141 mmol/L (137-145)
[2023-11-13 07:58] LABS: Partial Thromboplastin Time 27.2 sec (22.0-30.0); Prothrombin Time 11.3 sec (10.0-12.5)
[2023-11-13 07:59] LABS: Basophils % (A) 0 %; Eosinophils # (A) 0.1 k/uL (0-0.7); Eosinophils % (A) 0 %; HCT 34.7 % (34.0-46.0); HGB 10.8 gm/dL (11.4-16.0); Hypochromasia Slight; Lymphocytes # (A) 3.3 k/uL (1.0-4.8); Lymphocytes % (A) 15 %; MCH 32.8 pg (25.0-35.0); MCHC 31.2 g/dL (31.0-37.0); MCV 105.2 fL (80.0-100.0); Macrocytosis Moderate; Monocytes # (A) 0.9 k/uL (0-1.0); Monocytes % (A) 4 %; Neutrophils # (A) 17.3 k/uL (1.3-7.7); Neutrophils % (A) 78 %; Platelet Count 397 k/uL (150-450); RDW 13.9 % (11.5-15.5); WBC 22.1 k/uL (3.8-10.6)
--- NOTE | 2023-11-13 08:25 | P.OP ---
Date of Procedure: 11/12/23 Description of Procedure: SURGEON: RAIZA ESCOBAR MD PREOPERATIVE DIAGNOSES: 1. Large bowel obstruction of the sigmoid colon 2. Hydrops cholecystitis 3. Liver neoplasm of uncertain malignant potential 4. Atrial fibrillation with rapid ventricular response 5. Gastroesophageal reflux disease 6. Hypothyroidism 7. Hypertensive heart disease 8. Hyperlipidemia 9. Chronic anticoagulation 10. Chronic lower back pain 11. History of breast cancer POSTOPERATIVE DIAGNOSES: 1. Large bowel obstruction of the sigmoid colon 2. Hydrops cholecystitis 3. Liver neoplasm of uncertain malignant potential 4. Atrial fibrillation with rapid ventricular response 5. Gastroesophageal reflux disease 6. Hypothyroidism 7. Hypertensive heart disease 8. Hyperlipidemia 9. Chronic anticoagulation 10. Chronic lower back pain 11. History of breast cancer 12. Acute on chronic hydrops cholecystitis, 20 cm 13. Abdominal ascites. 14. Small and large bowel ischemia OPERATION: 1. Exploratory laparotomy with sigmoid resection for large bowel obstruction 2. Descending colostomy. 3. Defunctionalized rectal stump. 4. Open cholecystectomy 5. Peritoneal lavage over 3 liters 6. Placement of 20 cm PREVENA wound VAC system 7. Open liver biopsy, left lobe of liver 8. Decompressive colotomy, 450 cc 9. Drainage of peritoneal ascites, 250 cc 10. Peritoneal lavage 3 L normal saline ANESTHESIA: General, epidural ESTIMATED BLOOD LOSS: 50mL. SPECIMENS REMOVED: 1. Aerobic anaerobic culture peritoneal fluid 2. Colotomy 3. Cell cytology peritoneal ascites 4. Gallbladder 5. Liver biopsy 6. Sigmoid colon 7. Colostomy COMPLICATIONS: None. Condition: stable Disposition: floor Operative Findings: 1. Peritoneal clear ascites 250 cc drained with cell cytology obtained 2. Moderately distended transverse colon without perforation decompressed via depressive colotomy over 450 cc air and stool evacuated 3. Aerobic anaerobic cultures obtained of peritoneal fluid after decompression of colon 4. Hydrops cholecystitis over 20 x 10 cm decompressed and resected using plastic clip communications department chairperson's along cystic duct 5. No peritoneal seeding identified for metastatic disease 6. Small 4 mm subserosal nodularity on the left lobe of the liver resected for liver biopsy 7. Singular liver nodule less than 5 mm identified along left lobe of liver surface. 8. Palpated mass within the uterus 3 cm likely consistent with calcified fibroid uterus 9. Mid to distal sigmoid colon mass with desmoplastic indentation highly suspicious for malignant lesion without obvious peritoneal spread 10. Bowel ischemia identified involving the entire small bowel including cecum, ascending, entire entire transverse, descending and sigmoid colon identified prior to resections 11. Descending colostomy without tension or torsion INDICATIONS: The patient is a 88-year-old female who presents with several weeks of change in bowel habits, increased abdominal distention with abdominal pain. Diagnostic studies demonstrated large bowel obstruction due to mass of the sigmoid colon and possible metastatic disease of the liver including of the pelvis of unknown etiology. Patient was optimized for surgery including TPN with PICC line, cardiology risk assessment, oncology assessment. Benefits and risk of procedure including colectomy with temporary colostomy were described. DESCRIPTION: Patient was brought to the operating room. She was on scheduled IV antibiotics. The patient was placed in supine position whereby general induction was performed. Abdomen had been prepped and draped in the standard sterile fashion with placement of Parra catheter. Ioban draping was also placed to minimize any contamination to the skin. Next, using #10 blade, the abdomen was entered along the midline whereby an incision was made just above the umbilicus down to the pubis. The abdomen was inspected whereby the small bowel large bowel were remarkable for ischemia. The transverse colon was moderately distended with early less than 1 cm longitudinal along the posterior leaflet. Clear abdominal ascites was identified and drained from the abdomen over 250 cc. Peritoneal fluid was sent for analysis with a history of cancer. The omentum including small and large bowel mesentery was also unremarkable. Separately, the liver surface was palpated with singular subcentimeter nodule along the left lobe of the liver. No peritoneal studding was identified. Next, Bookwalter retractor was placed. The gallbladder was remarkably large size of 20 cm x 10 cm encompassing the entire right upper quadrant consistent with hydrops. The gallbladder was mobilized from the fundus towards the infundibulum along the liver surface. The hepatic fossa was cauterized as the gallbladder was mobilized towards the infundibulum. Careful dissection was performed with the cystic duct was isolated away from the common bile duct. Plastic clips large were used with 3 clips along the cystic duct and similarly along the cystic artery. The cystic duct was divided using Bovie cautery then the cystic artery. Vessel sealer was used to mobilize the rest of the gallbladder with complete resection. Bleeding was controlled using cautery. The hepatic fossa was packed with attention to the large and small bowel. As the transverse colon was moderately distended, colotomy along the anterior surface of the mid transverse colon was performed after isolating using a pursestring suture of 3-0 silk. The colon was suctioned for 150 cc of air and stool. Aerobic and anaerobic cultures were obtained of the peritoneal fluid with minimal spillage from the colonic drainage. The colotomy was closed using 60 mm green powered stapler. The staple site was cauterized. Attention was brought to the subserosal nodule on the left surface of the liver. Electro-Bovie cautery was used to circumferentially dissect and remove the liver nodule which was passed off for pathological analysis. The excised liver biopsy site was further cauterized with bleeding controlled. Next attention was brought to the sigmoid colon. The small bowel and right colon were packed of the upper abdomen. The descending colon and sigmoid colon was mobilized along the medial and lateral attachments with care to avoid injury to the ureters along the usual anatomical landmarks. Carefully the sigmoid colon was identified and mobilized. The sigmoid colon was moderately redundant ischemic. A desmoplastic reaction of the distal to mid sigmoid colon was identified with near complete obstruction consistent with malignancy of unclear etiology. The uterus was palpated with no blood or any 4 cm nodularity highly suspicious for fibroid uterus. The sigmoid colon was mobilized along the mesentery where a window was made along the mesentery and the colon was divided using Ethicon powered stapler 60 mm black load such that the descending colon was prepared for maturation of a colostomy. The colon was divided distally using contour green stapler below the obstruction. The specimen was passed off. Hemostasis was checked with electro Bovie cautery including LigaSure. The abdomen was copiously irrigated with 3 L of normal saline solution. The rectal stump was tagged using 2-0 Prolene. Next, attention was brought to the delivering and creating of the descending colostomy. A point along the abdominal wall and rectus muscle was selected for the colostomy. Eliseo was used to elevate the skin and Bovie cautery was taken across in tangential manner to create the skin defect of approximately quarter-size. The fat of the skin was mobilized using a small rich. The rectus muscle was identified and scored with a cruciate scoring of electro- Bovie cautery. Next, using a muscle-splitting technique with a hemostat, the peritoneum was entered. The peritoneum was widened such that 2 fingerbreadths could easily pass for delivering and evaginating the descending portion of the colon through the skin. The midline incision was closed using double-stranded 0 PDS. Next, the subcutaneous tissue was copiously irrigated with normal saline and hydrogen peroxide. The subcutaneous tissue was reapproximated using 0 Vicryl in interrupted fashion. The skin was closed using 3-0 Monocryl. The midline incision was covered using universal PREVENA wound VAC and attention was brought to maturation of the colostomy. The staple edge was divided and removed demarcated ischemic edges. Next quadrant sutures at 12 o'clock, 3 o'clock, 6 o'clock, and 9 o'clock position was made using serosa, mucosal and dermal bites using 2-0 Vicryl. Interrupted 3-0 Vicryl was placed in between all quadrants sutures to completely mature the ostomy. Hemostasis was checked. A Coloplast was then placed. At the end of the procedure, needle, sponge, and instrument count had been verified correct by missile and missile checkout technician. The patient's family was updated on level of care.
[2023-11-13] MEDS: POTASSIUM CHLORIDE 20 MEQ in WATER FOR INJECTION 1 100ML.BAG IVPB SCH (10:02)
--- NOTE | 2023-11-13 11:03 | P.PN ---
Subjective HISTORY OF PRESENT ILLNESS: This is a 88-year-old female with a past medical history significant for atrial fibrillation, SVT, hypertension, hyperlipidemia, and hypothyroidism. Patient follows in the office with Dr. Holloway. We have been asked to see the patient in consultation for cardiac risk assessment. Patient examined at the bedside. Patient states she presented to the hospital after not having a bowel movement for 11 days. She has been seen by general surgery and is scheduled to undergo open sigmoid colectomy with colostomy on 11/11/[address] Cedeno. Patient currently denies any chest pain or pressure. She denies any shortness of breath. Apparently, overnight the patient went tachycardic and she was prescribed IV heparin and IV amiodarone and transferred to [facility]. She converted to sinus mechanism and is maintaining sinus mechanism at the time of examination. DIAGNOSTICS: - Telemetry currently reveals sinus mechanism - Laboratory data: WBC 17.7. Hemoglobin 11.9. Platelet count 325. Sodium 139. Potassium 3.9. BUN 16. Creatinine 0.7. TSH 18.3. Free T41.67. - Current home cardiac medications include amiodarone 200 mg daily, metoprolol tartrate 25 mg twice a day, Lipitor 20 mg daily, Eliquis 5 mg twice a day. - Most recent echocardiogram obtained in July 2022 revealed ejection fraction 52%, mild aortic stenosis, mild mitral regurgitation, mild tricuspid regurgitation 11/09/2023 Patient examined this morning at the bedside. Patient currently denies chest pain or pressure. She denies shortness of breath. She remains in atrial fibrillation with decently controlled ventricular rates. Echocardiogram c ompleted revealing ejection fraction 35 to 40%, mild MR, mild 11/10/2023 Patient examined this morning the bedside. Patient seen up in the chair. Patient denies chest pain or pressure. She denies shortness of breath. Vital signs are stable. She remains in atrial fibrillation with heart rate between [id number]. 11/11/2023 Patient examined this morning at the bedside. Patient currently denies chest pain or pressure. She denies shortness of breath. She remains in atrial fibrillation with controlled ventricular rate. She remains on IV heparin. She is scheduled to undergo surgical intervention today. 11/13/2023 Patient is status post exploratory laparotomy, sigmoid resection, descending colostomy, cholecystectomy, and liver biopsy. Patient examined this morning the bedside. Patient currently denies chest pain or pressure. She denies shortness of breath. She remains in atrial fibrillation with controlled ventricular rate. Her IV Cardizem has been discontinued. PHYSICAL EXAM: VITAL SIGNS: Reviewed. GENERAL: Well-developed in no acute distress. HEENT: Head is normocephalic. Pupils are equal, round. Sclerae anicteric. Mucous membranes of the mouth are moist. Neck supple. No JVD or thyromegaly LUNGS: Respirations even and unlabored. Lungs essentially clear to auscultation bilaterally. HEART: Irregular rate and rhythm. S1 and S2 heard. ABDOMEN: Soft. Nondistended. Nontender. EXTREMITIES: Normal range of motion. No clubbing or cyanosis. Peripheral pulses intact. No lower extremity edema NEUROLOGIC: Awake and alert. Oriented x 3. ASSESSMENT: Bowel obstruction, status post exploratory laparotomy, sigmoid resection, descending colostomy, cholecystectomy, and liver biopsy Multiple hepatic lesions, status post biopsy in OR Cholecystitis s/p cholecystectomy, 11/12/2023 Paroxysmal atrial fibrillation History of cardioversion, 2022 Hypertension Hyperlipidemia History of paroxysmal SVT Hypothyroidism New onset cardiomyopathy, 35 to 40%, ischemic versus nonischemic PLAN: Continue current cardiac medications Continue telemetry monitoring Resume Eliquis 5 mg twice a day when cleared by general surgery Further recommendations pending patient course Nurse practitioner note has been reviewed by physician. Signing provider agrees with the documented findings, assessment, and plan of care documented by COCONUT COOKER as a scribe. Objective - Vital Signs Vital signs: Vital Signs Temp 98.1 F 11/13/23 07:50 Pulse 94 11/13/23 07:50 Resp 16 11/13/23 07:50 BP 95/54 11/13/23 07:50 Pulse Ox 97 11/13/23 09:34 FiO2 Intake & Output 11/12/23 11/13/23 11/13/23 18:59 06:59 18:59 Intake Total 2200 1052.067 Output Total 175 150 300 Balance 2024 -150 752.067 Intake: IV 1150 Intake, IV Titration 1050 812.067 Amount Mvi, Adult No.4 with Vit 1050 812.067 K 10 ml Trace (Conc-1Ml/ Dose) 1 ml Calcium Gluconate 1 gm Sodium Acetate 46 meq Magnesium Sulfate gm 0.5 gm Potassium Phosphate 15 mmol In Amino Acids 5 %/ Dextrose 20 % 1,000 ml @ 52 mls/hr IV .[id number] [facility] Rx#:[id number] Oral 240 Output: Urine 125 Stool 150 300 Estimated Blood Loss 50 Other: Voiding Method Toilet Indwelling Catheter Indwelling Catheter - Labs CBC & Chem 7: 11/13/23 07:06 11/13/23 07:06 Labs: Abnormal Lab Results - Last 24 Hours (Table) 11/12/23 11/13/23 11/13/23 Range/Units 16:18 00:09 05:30 WBC (3.8-10.6) k/uL RBC (3.80-5.40) m/uL Hgb (11.4-16.0) gm/dL MCV (80.0-100.0) fL Neutrophils # (1.3-7.7) k/uL Potassium (3.5-5.1) mmol/L Chloride (98-107) mmol/L Carbon Dioxide (22-30) mmol/L BUN (7-17) mg/dL Glucose (74-99) mg/dL POC Glucose (mg/dL) 299 H 202 H 213 H (70-110) mg/dL Calcium (8.4-10.2) mg/dL Phosphorus (2.5-4.5) mg/dL 11/13/23 11/13/23 Range/Units 07:06 07:06 WBC 22.1 H (3.8-10.6) k/uL RBC 3.30 L (3.80-5.40) m/uL Hgb 10.8 L (11.4-16.0) gm/dL MCV 105.2 H (80.0-100.0) fL Neutrophils # 17.3 H (1.3-7.7) k/uL Potassium 3.4 L (3.5-5.1) mmol/L Chloride 113 H (98-107) mmol/L Carbon Dioxide 21 L (22-30) mmol/L BUN 23 H (7-17) mg/dL Glucose 178 H (74-99) mg/dL POC Glucose (mg/dL) (70-110) mg/dL Calcium 7.5 L (8.4-10.2) mg/dL Phosphorus 2.4 L (2.5-4.5) mg/dL Microbiology - Last 24 Hours (Table) 11/10/23 17:41 Blood Culture - Preliminary Blood
[2023-11-13 11:33] LABS: Glucose,Whole Blood 210 mg/dL (70-110)
--- NOTE | 2023-11-13 12:01 | P.PN ---
Subjective Progress Note Date: 11/13/23 Subjective: Patient seen and examined at bedside. She is s/p open sigmoid colectomy with colostomy and cholecystectomy. Postop day 1. No acute events overnight. Has spinal epidural placed for pain management. Her pain levels are adequate Pertinent positives and negatives as discussed above, a complete review of systems was performed and all other systems are negative. Vitals: Signs Reviewed Physical Exam: General: nontoxic, no distress, appears at stated age Derm: warm, dry, intact Head: atraumatic, normocephalic, symmetric Eyes: EOMI, no lid lag, anicteric sclera Mouth: no lip lesion, mucus membranes moist Cardiovascular: S1 S2 reg, no murmur, rubs, or gallops Lungs: CTA bilateral, no rhonchi, no rales, no accessory muscle use Abdominal: distended, tender to palpataion, no appreciable organomegaly Extremities: no gross muscle atrophy, no edema, no contractures Neuro: Alert, Oriented, CNII-XII grossly intact Psych: well appearing, appropriate affect Data Received Today: Pertinent Labs: CBC WBC 22.1, RBC 3.30, MCV 105.2, Plt 397 Coag panel wnl. BMP Na 141, Cl 109, bicarb 21, BUN 23, Cr. 0.53, glu 213, Phos 2.1, Mag 2.1, K 3.4, glucose 210 Imaging: No new imaging Assessment and Plan: 88-year-old female with past medical history of IBS, hypothyroid, hypertension, breast cancer, and A-fib presents with abdominal pain associated with constipation. S/p sigmoid colectomy with costomy and cholecystectomy. Postop day 1. Abdominal pain, likely due to partial large bowel obstruction malignancy vs. colitis Multiple hepatic mass lesions - Continue n.p.o. diet. Continue IV fluids 75 cc normal saline -Intake/output ordered -Avoid excessive opiate use for now with moprine 2 mg ivp q4h prn for severe pain -General surgery following, likely surgery on , Eliquis discontinued - blood cultures negative so far - For leukocytosis due to suspected colitis. ID discontinued Flagyl 500 mg, IV ceftriaxone 2gm. Was put on Zosyn 4.375g IV TID on 11/09 by ID. - Repeat CBC and BMP -Oncology following, elevated AFP 12.4, other tumor markers WNL. CA 27-29 pending -MRI Liver results: Multiple liver lesions concerning for metastatic disease possibly gastrointestinal in origin given prior CT 11/05/2023. Finding could be secondary to mesenteric mass with tethering multiple loops of bowel. Discussed results with patient. -Right-sided PICC line in place for TPN Patient spoke with Dr. Cedeno about ex lap procedure and possible cholecystectomy. Will wait for results from pathology on liver lesion and large bowel mass. Will consult with GI and cardio to resume eliquis Metabolic acidosis with high anion gap Lactic acid 1.0 VBG: pH 7.35 CO2 23, HCO3 13 VBG shows compensated respiratory alkalosis. Could be due to hyperCl from normal saline. Is improving with LR at 75 cc/hr. Hypokalemia Potassium 3.4 20 mEq potassium chloride IV ordered Follow-up with CMP Atrial fibrillation w/ rvr, now rate controlled Had episode of A-fib with RVR. heart rate >180. Was transferred to for further cardiac assessment Hold Eliis for scheduled surgery. Patient on IV heparin drip, monitor APTT, monitor for bleeding Continue 200 mg amiodarone p.o. daily Monitoring on telemetry Cardiology note reviewed. 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 Mildly increased left ventricular wall thickness Mild mitral regurgitation. Mild aortic stenosis. No pericardial effusion. Patient appears euvolemic Metoprolol tartrate 25 mg PO twice daily. Cardiology following. 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 As patient is also on IV fluids -Hold losartan Dyslipidemia Atorvastatin 20 mg PO F: NaCl 0.9% @ 75 mls/hr E: Replete as needed N: TPN A: fall precautions, hypoglycemia protocol DVT ppx: SCDs Code status: No code w/instructions Anticipated discharge place: pending clinical course Anticipated discharge time: pending clinical course I have seen and evaluated the patient today. Discussed with the resident and agree with the residents subjective and objective as documented in the resident's note. The assessment and plan was discussed and outlined as below. POD 1 exploratory laparotomy with sigmoid resection, colostomy, cholecystectomy, liver biopsy. Sigmoid colon mass highly suspicious for malignancy. Currently with epidural for pain management. TPA for nutrition. Zosyn for antibiotics. Surgery OK with restarting Eliquis and diet. CBC WBC 22.1, RBC 3.3, Hg 10.8, MCV 105.2 Coag panel wnl. BMP K 3.4, Cl 113, bicarb 21, BUN 23, glu 178, Phos 2.4, Mag 1.9. Partial SBO due to sigmoid mass: Status post OR. IVF as below. Epidural managed by anesthesia for pain management. Morphine 2g IV Q4H PRN for pain. IV antibiotics as below. Follow pathology report (peritoneal ascites, gall bladder, liver biopsy, sigmoid mass). TPN for nutrition started 11/08. Surgery on board. Sepsis likely due to cholecystitis : Flagyl and Rocephin switched to Zosyn 3.375g IV TID on 11/09 by ID. LR at 75 cc/hr. BCx negative so far. Peritoneal fluid cultures collected. Hypokalemia: KCL 20 meq IV x 1 today. Metabolic acidosis: Possibly related to above. Lactic acid negative. VBG shows compensated respiratory alkalosis. Could be due to hyperCl from normal saline. Improving with LR at 75 cc/hr. Atrial fibrillation with RVR: Maintain Mg > 2 and K > 4. Resume Eliquis 5 mg PO BID. Cardizem drip on hold post surgery, resume if necessary. Amiodarone 200 mg PO QD. Metoprolol 25 mg PO TID. Cardiology following. Liver and Femoral lesions: CA 15-3, 19-9, CEA 4.9. AFP elvated 12.4. Follow pat hology results. Oncology following. HFrEF: EF 35-40%. Euvolemic. Metoprolol as above. ACEi on hold due to hypotension. Macrocytosis: B12 and Folate wnl. Subclinical hypothyroidism: Likely due to acute illness. Continue Synthroid 100 mcg PO QD. Repeat TSH/FT4 in 6 weeks. Urinary incontinence: Myrbetriq when able to PO. Hypertension: Losartan/HCTZ on hold. Metoprolol as above. Dyslipidemia: Lipitor 20 mg PO QD. Resolved: Hyponatremia, Hypoglycemia, Hypokalemia Objective - Vital Signs Vital signs: Vital Signs Temp 97.8 F 11/12/23 20:00 Pulse 108 H 11/13/23 03:15 Resp 18 11/13/23 03:15 BP 110/62 11/13/23 03:15 Pulse Ox 98 11/13/23 03:15 FiO2 Intake & Output 11/12/23 11/13/23 11/13/23 18:59 06:59 18:59 Intake Total 2200 Output Total 175 150 Balance 2024 - Intake: IV 1150 Intake, IV Titration 1050 Amount Mvi, Adult No.4 with Vit 1050 K 10 ml Trace (Conc-1Ml/ Dose) 1 ml Calcium Gluconate 1 gm Sodium Acetate 46 meq Magnesium Sulfate gm 0.5 gm Potassium Phosphate 15 mmol In Amino Acids 5 %/ Dextrose 20 % 1,000 ml @ 52 mls/hr IV .[id number] [facility] Rx#:[id number] Output: Urine 125 Stool 150 Estimated Blood Loss 50 Other: Voiding Method Toilet Indwelling Catheter - Labs CBC & Chem 7: 11/13/23 07:06 11/13/23 07:06 Labs: Abnormal Lab Results - Last 24 Hours (Table) 11/12/23 11/12/23 11/12/23 Range/Units 06:16 08:04 16:18 Sodium 134 L (137-145) mmol/L Chloride 109 H (98-107) mmol/L Carbon Dioxide 20 L (22-30) mmol/L BUN 21 H (7-17) mg/dL Creatinine 0.48 L (0.52-1.04) mg/dL Glucose 213 H (74-99) mg/dL POC Glucose (mg/dL) 193 H 299 H (70-110) mg/dL Phosphorus 2.1 L (2.5-4.5) mg/dL 11/13/23 11/13/23 Range/Units 00:09 05:30 Sodium (137-145) mmol/L Chloride (98-107) mmol/L Carbon Dioxide (22-30) mmol/L BUN (7-17) mg/dL Creatinine (0.52-1.04) mg/dL Glucose (74-99) mg/dL POC Glucose (mg/dL) 202 H 213 H (70-110) mg/dL Phosphorus (2.5-4.5) mg/dL Microbiology - Last 24 Hours (Table) 11/10/23 17:41 Blood Culture - Preliminary Blood
--- NOTE | 2023-11-13 14:08 | P.PN ---
Progress Note - Text Progress Note Date: 11/13/23 CHIEF COMPLAINT: Large bowel obstruction HISTORY OF PRESENT ILLNESS: NAEO. Pain is controlled PHYSICAL EXAM: VITAL SIGNS: Reviewed. GENERAL: no acute distress. ABDOMEN: Mildly distended. Diffuse tenderness. Incisional dressing clean dry and intact. NEUROLOGIC: Alert and oriented. Cranial nerves II through XII grossly intact. ASSESSMENT: 1. POD #1 Ex Lap, Sigmoid Colectomy, Cholecystectomy and Liver Biopsy PLAN: -Low Fiber Diet -Pain and Nausea Control -Ok to start Eliquis for A-Fib -AM labs
--- NOTE | 2023-11-13 15:03 | P.PN ---
Subjective Progress Note Date: 11/13/23 Principal diagnosis: Reason for follow-up is leukocytosis Patient is a 88-year-old female with a past medical history significant for hypertension hyperlipidemia atrial fibrillation history of breast cancer chronic back pain presenting to the hospital for evaluation ab dominal pain and constipation has been diagnosed with a large bowel obstruction and concern for possible liver mets did have persistent worsening white count prompting this consultation.Patient is status post expiratory laparotomy with sigmoid resection for large bowel obstruction and descending colostomy open cholecystectomy, peritoneal large liver biopsy procedure completed on 11/12/2023 On today's evaluation that is 11/13/2023, patient has been afebrile, patient is breathing comfortably and is currently on room air, patient denies having any significant cough no chest pain shortness of breath, patient denies nausea vomiting abdominal pain has decreased in intensity and no bowel movement. Patient white count is 22.1 creatinine 0.53 Objective - Vital Signs Vital signs: Vital Signs Temp 98.1 F 11/13/23 07:50 Pulse 79 11/13/23 11:37 Resp 16 11/13/23 11:37 BP 92/54 11/13/23 11:37 Pulse Ox 97 11/13/23 11:37 FiO2 Intake & Output 11/12/23 11/13/23 11/13/23 18:59 06:59 18:59 Intake Total 2200 1052.067 Output Total 175 150 850 Balance 2024 -150 202.067 Intake: IV 1150 Intake, IV Titration 1050 812.067 Amount Mvi, Adult No.4 with Vit 1050 812.067 K 10 ml Trace (Conc-1Ml/ Dose) 1 ml Calcium Gluconate 1 gm Sodium Acetate 46 meq Magnesium Sulfate gm 0.5 gm Potassium Phosphate 15 mmol In Amino Acids 5 %/ Dextrose 20 % 1,000 ml @ 52 mls/hr IV .[id number] [facility] Rx#:[id number] Oral 240 Output: Urine 125 350 Stool 150 500 Estimated Blood Loss 50 Other: Voiding Method Toilet Indwelling Catheter Indwelling Catheter - Exam GENERAL DESCRIPTION: An elderly female lying in bed in no distress RESPIRATORY SYSTEM: Unlabored breathing , decreased breath sounds at bases HEART: S1 S2 regular rate and rhythm , ABDOMEN: Soft , mild distention EXTREMITIES: No edema feet - Labs CBC & Chem 7: 11/13/23 07:06 11/13/23 07:06 Labs: Abnormal Lab Results - Last 24 Hours (Table) 11/12/23 11/13/23 11/13/23 Range/Units 16:18 00:09 05:30 WBC (3.8-10.6) k/uL RBC (3.80-5.40) m/uL Hgb (11.4-16.0) gm/dL MCV (80.0-100.0) fL Neutrophils # (1.3-7.7) k/uL Potassium (3.5-5.1) mmol/L Chloride (98-107) mmol/L Carbon Dioxide (22-30) mmol/L BUN (7-17) mg/dL Glucose (74-99) mg/dL POC Glucose (mg/dL) 299 H 202 H 213 H (70-110) mg/dL Calcium (8.4-10.2) mg/dL Phosphorus (2.5-4.5) mg/dL 11/13/23 11/13/23 11/13/23 Range/Units 07:06 07:06 11:31 WBC 22.1 H (3.8-10.6) k/uL RBC 3.30 L (3.80-5.40) m/uL Hgb 10.8 L (11.4-16.0) gm/dL MCV 105.2 H (80.0-100.0) fL Neutrophils # 17.3 H (1.3-7.7) k/uL Potassium 3.4 L (3.5-5.1) mmol/L Chloride 113 H (98-107) mmol/L Carbon Dioxide 21 L (22-30) mmol/L BUN 23 H (7-17) mg/dL Glucose 178 H (74-99) mg/dL POC Glucose (mg/dL) 210 H (70-110) mg/dL Calcium 7.5 L (8.4-10.2) mg/dL Phosphorus 2.4 L (2.5-4.5) mg/dL Microbiology - Last 24 Hours (Table) 11/10/23 17:41 Blood Culture - Preliminary Blood Assessment and Plan (1) Leukocytosis Current Visit: Yes Status: Acute Code(s): D72.829 - ELEVATED WHITE BLOOD CELL COUNT, UNSPECIFIED SNOMED Code(s): 534645295 (2) Partial bowel obstruction Current Visit: Yes Status: Acute Code(s): K56.600 - PARTIAL INTESTINAL OBSTRUCTION, UNSPECIFIED TO CAUSE SNOMED Code(s): 61389824623918055 Plan: 1patient with leukocytosis which is likely multifactorial in this patient admitted to hospital with abdominal pain and constipation has been diagnosed with a large bowel obstruction with a question of possible mass versus colitis mass may be favored as the patient did have multiple lesion in the liver concerning for metastatic disease with worsening of the white count despite being on Rocephin and Flagyl we need to broaden her antibiotic coverage 2-blood cultures has been repeated currently pending 3-patient is status post extensive abdominal surgery, white count is up today more likely reactive to surgery yesterday and will monitor closely, 4patient to continue with Zosyn 3.375 g every 8 hours, and monitor clinical course closely Dictation was produced using [employer] dictation software. please excuse any grammatical, word or spelling errors.
--- NOTE | 2023-11-13 15:03 | P.PN ---
Subjective Progress Note Date: 11/12/23 Principal diagnosis: Reason for follow-up is leukocytosis Patient is a 88-year-old female with a past medical history significant for hypertension hyperlipidemia atrial fibrillation history of breast cancer chronic back pain presenting to the hospital for evaluation ab dominal pain and constipation has been diagnosed with a large bowel obstruction and concern for possible liver mets did have persistent worsening white count prompting this consultation.Patient is status post expiratory laparotomy with sigmoid resection for large bowel obstruction and descending colostomy open cholecystectomy, peritoneal large liver biopsy procedure completed on 11/12/2023 On today's evaluation that is 11/12/2023, the patient remains to be afebrile patient is breathing comfortably on the 2 L nasal cannula oxygen patient denies having any chest pain or shortness of breath or cough abdominal pain decreased intensity no nausea no vomiting. Patient white count slightly down to 21.2 creatinine 0.48 Objective - Vital Signs Vital signs: Vital Signs Temp 97.6 F 11/12/23 07:48 Pulse 104 H 11/12/23 09:21 Resp 16 11/12/23 09:21 BP 137/66 11/12/23 09:21 Pulse Ox 95 11/12/23 09:21 FiO2 Intake & Output 11/11/23 11/12/23 11/12/23 18:59 06:59 18:59 Intake Total 1447.500 270.032 50 Balance 1447.500 270.032 50 Weight 69.3 kg 72.3 kg Intake: IV 70 50 Invasive Line 2 20 Invasive Line 3 20 Invasive Line 4 20 Invasive Line 5 10 Intake, IV Titration 1091.500 200.032 Amount Diltiazem 125 mg In 120.833 46.25 Sodium Chloride 0.9% 100 ml @ 5 MG/HR 5 mls/hr IV .Q24H [facility] Rx#:[id number] Heparin Sod,Pork in 0.45% 153.782 NaCl 25,000 unit In 0.45 % NaCl 1 250ml.bag @ 12 UNITS/KG/HR 7.348 mls/hr IV .Q24H [facility] Rx#: [id number] Mvi, Adult No.4 with Vit 970.667 K 10 ml Trace (Conc-1Ml/ Dose) 1 ml Calcium Gluconate 1 gm Sodium Acetate 30 meq Magnesium Sulfate gm 0.5 gm Potassium Phosphate 15 mmol In Amino Acids 5 %/ Dextrose 20 % 1,000 ml @ 52 mls/hr IV .Q20H3M [facility] [place] Rx#:[id number] Oral 356 Other: Voiding Method Toilet Toilet # Voids 1 - Exam GENERAL DESCRIPTION: An elderly female lying in bed in no distress RESPIRATORY SYSTEM: Unlabored breathing , decreased breath sounds at bases HEART: S1 S2 regular rate and rhythm , ABDOMEN: Soft , mild distention EXTREMITIES: No edema feet - Labs CBC & Chem 7: 11/13/23 07:06 11/13/23 07:06 Labs: Abnormal Lab Results - Last 24 Hours (Table) 11/11/23 11/11/23 11/11/23 Range/Units 11:35 17:51 23:53 WBC (3.8-10.6) k/uL RBC (3.80-5.40) m/uL MCV (80.0-100.0) fL Plt Count (150-450) k/uL Neutrophils # (1.3-7.7) k/uL Sodium (137-145) mmol/L Chloride (98-107) mmol/L Carbon Dioxide (22-30) mmol/L BUN (7-17) mg/dL Creatinine (0.52-1.04) mg/dL Glucose (74-99) mg/dL POC Glucose (mg/dL) 226 H 146 H 212 H (70-110) mg/dL Phosphorus (2.5-4.5) mg/dL 11/12/23 11/12/23 11/12/23 Range/Units 06:16 06:16 06:16 WBC 21.2 H (3.8-10.6) k/uL RBC 3.58 L (3.80-5.40) m/uL MCV 102.6 H (80.0-100.0) fL Plt Count 481 H (150-450) k/uL Neutrophils # 16.8 H (1.3-7.7) k/uL Sodium 134 L (137-145) mmol/L Chloride 109 H (98-107) mmol/L Carbon Dioxide 20 L (22-30) mmol/L BUN 21 H (7-17) mg/dL Creatinine 0.48 L (0.52-1.04) mg/dL Glucose 213 H (74-99) mg/dL POC Glucose (mg/dL) 232 H (70-110) mg/dL Phosphorus 2.1 L (2.5-4.5) mg/dL 11/12/23 Range/Units 08:04 WBC (3.8-10.6) k/uL RBC (3.80-5.40) m/uL MCV (80.0-100.0) fL Plt Count (150-450) k/uL Neutrophils # (1.3-7.7) k/uL Sodium (137-145) mmol/L Chloride (98-107) mmol/L Carbon Dioxide (22-30) mmol/L BUN (7-17) mg/dL Creatinine (0.52-1.04) mg/dL Glucose (74-99) mg/dL POC Glucose (mg/dL) 193 H (70-110) mg/dL Phosphorus (2.5-4.5) mg/dL Microbiology - Last 24 Hours (Table) 11/10/23 17:41 Blood Culture - Preliminary Blood Assessment and Plan (1) Leukocytosis Current Visit: Yes Status: Acute Code(s): D72.829 - ELEVATED WHITE BLOOD CELL COUNT, UNSPECIFIED SNOMED Code(s): 740001140 (2) Partial bowel obstruction Current Visit: Yes Status: Acute Code(s): K56.600 - PARTIAL INTESTINAL OBSTRUCTION, UNSPECIFIED TO CAUSE SNOMED Code(s): 68119542828560559 Plan: 1patient with leukocytosis which is likely multifactorial in this patient admitted to hospital with abdominal pain and constipation has been diagnosed with a large bowel obstruction with a question of possible mass versus colitis mass may be favored as the patient did have multiple lesion in the liver c oncerning for metastatic disease with worsening of the white count despite being on Rocephin and Flagyl we need to broaden her antibiotic coverage 2-blood cultures has been repeated currently pending 3-patient is status post extensive abdominal surgery, white count is slightly down, to continue with Zosyn 3.375 g every 8 hours, and monitor clinical course closely Dictation was produced using [employer] dictation software. please excuse any grammatical, word or spelling errors. Time with Patient: Less than 30
[2023-11-13] MEDS: HYDROmorphone 1 MG/ML 1 ML SYRINGE IVP PRN (16:51)
[2023-11-13 18:06] LABS: Glucose,Whole Blood 208 mg/dL (70-110)
[2023-11-13] MEDS: APIXABAN 5 MG TAB PO SCH (20:17)
[2023-11-14 00:23] LABS: Glucose,Whole Blood 191 mg/dL (70-110)
[2023-11-14 05:34] LABS: Glucose,Whole Blood 202 mg/dL (70-110)
[2023-11-14 08:01] LABS: African American GFR (CKD) >90 (>60 ml/min/1.73 sqM); Anion Gap 4 mmol/L; Blood Urea Nitrogen 23 mg/dL (7-17); Calcium 8.1 mg/dL (8.4-10.2); Carbon Dioxide 20 mmol/L (22-30); Chloride 107 mmol/L (98-107); Glucose 201 mg/dL (74-99); Non-African American GFR(CKD) >90 (>60 ml/min/1.73 sqM); Phosphorus 2.5 mg/dL (2.5-4.5); Potassium 3.8 mmol/L (3.5-5.1); Sodium 131 mmol/L (137-145)
[2023-11-14 09:58] LABS: HCT 32.3 % (34.0-46.0); HGB 10.3 gm/dL (11.4-16.0); Hypochromasia Slight; MCH 33.1 pg (25.0-35.0); MCV 103.3 fL (80.0-100.0); Macrocytosis Slight; Platelet Count 352 k/uL (150-450); RBC 3.12 m/uL (3.80-5.40); WBC 26.3 k/uL (3.8-10.6)
--- NOTE | 2023-11-14 10:09 | P.PN ---
Subjective HISTORY OF PRESENT ILLNESS: This is a 88-year-old female with a past medical history significant for atrial fibrillation, SVT, hypertension, hyperlipidemia, and hypothyroidism. Patient follows in the office with Dr. Holloway. We have been asked to see the patient in consultation for cardiac risk assessment. Patient examined at the bedside. Patient states she presented to the hospital after not having a bowel movement for 11 days. She has been seen by general surgery and is scheduled to undergo open sigmoid colectomy with colostomy on 11/11/[address] Cedeno. Patient currently denies any chest pain or pressure. She denies any shortness of breath. Apparently, overnight the patient went tachycardic and she was prescribed IV heparin and IV amiodarone and transferred to [facility]. She converted to sinus mechanism and is maintaining sinus mechanism at the time of examination. DIAGNOSTICS: - Telemetry currently reveals sinus mechanism - Laboratory data: WBC 17.7. Hemoglobin 11.9. Platelet count 325. Sodium 139. Potassium 3.9. BUN 16. Creatinine 0.7. TSH 18.3. Free T41.67. - Current home cardiac medications include amiodarone 200 mg daily, metoprolol tartrate 25 mg twice a day, Lipitor 20 mg daily, Eliquis 5 mg twice a day. - Most recent echocardiogram obtained in July 2022 revealed ejection fraction 52%, mild aortic stenosis, mild mitral regurgitation, mild tricuspid regurgitation 11/09/2023 Patient examined this morning at the bedside. Patient currently denies chest pain or pressure. She denies shortness of breath. She remains in atrial fibrillation with decently controlled ventricular rates. Echocardiogram c ompleted revealing ejection fraction 35 to 40%, mild MR, mild 11/10/2023 Patient examined this morning the bedside. Patient seen up in the chair. Patient denies chest pain or pressure. She denies shortness of breath. Vital signs are stable. She remains in atrial fibrillation with heart rate between [id number]. 11/11/2023 Patient examined this morning at the bedside. Patient currently denies chest pain or pressure. She denies shortness of breath. She remains in atrial fibrillation with controlled ventricular rate. She remains on IV heparin. She is scheduled to undergo surgical intervention today. 11/13/2023 Patient is status post exploratory laparotomy, sigmoid resection, descending colostomy, cholecystectomy, and liver biopsy. Patient examined this morning the bedside. Patient currently denies chest pain or pressure. She denies shortness of breath. She remains in atrial fibrillation with controlled ventricular rate. Her IV Cardizem has been discontinued. 11/14/2023 Patient examined this morning at the bedside. Patient currently denies chest pain or pressure. She denies shortness of breath. She has been resumed back on Eliquis. She remains in atrial fibrillation with controlled ventricular rate. PHYSICAL EXAM: VITAL SIGNS: Reviewed. GENERAL: Well-developed in no acute distress. HEENT: Head is normocephalic. Pupils are equal, round. Sclerae anicteric. Mucous membranes of the mouth are moist. Neck supple. No JVD or thyromegaly LUNGS: Respirations even and unlabored. Lungs essentially clear to auscultation bilaterally. HEART: Irregular rate and rhythm. S1 and S2 heard. ABDOMEN: Soft. Nondistended. Nontender. EXTREMITIES: Normal range of motion. No clubbing or cyanosis. Peripheral pulses intact. No lower extremity edema NEUROLOGIC: Awake and alert. Oriented x 3. ASSESSMENT: Bowel obstruction, status post exploratory laparotomy, sigmoid resection, descending colostomy, cholecystectomy, and liver biopsy Multiple hepatic lesions, status post biopsy in [place] Cholecystitis s/p cholecystectomy, 11/12/2023 Paroxysmal atrial fibrillation History of cardioversion, 2022 Hypertension Hyperlipidemia History of paroxysmal SVT Hypothyroidism New onset cardiomyopathy, 35 to 40%, ischemic versus nonischemic PLAN: Continue postoperative management per general surgery Continue current cardiac medications Continue telemetry monitoring Patient has been resumed on Eliquis Further recommendations pending patient course Nurse practitioner note has been reviewed by physician. Signing provider agrees with the documented findings, assessment, and plan of care documented by [employer] as a scribe. Objective - Vital Signs Vital signs: Vital Signs Temp 98.2 F 11/14/23 07:29 Pulse 102 H 11/14/23 07:29 Resp 17 11/14/23 07:29 BP 103/58 11/14/23 07:29 Pulse Ox 97 11/14/23 07:29 FiO2 Intake & Output 11/13/23 11/14/23 11/14/23 18:59 06:59 18:59 Intake Total 5421.454 0504.067 358 Output Total 1100 200 Balance -47.933 1007.067 158 Weight 74.5 kg Intake: Intake, IV Titration 036.349 1079.067 Amount Mvi, Adult No.4 with Vit 694.329 2880.067 K 10 ml Trace (Conc-1Ml/ Dose) 1 ml Calcium Gluconate 1 gm Sodium Acetate 46 meq Magnesium Sulfate gm 0.5 gm Potassium Phosphate 15 mmol In Amino Acids 5 %/ Dextrose 20 % 1,000 ml @ 52 mls/hr IV .[id number] [facility] Rx#:[id number] Oral 240 358 Output: Urine 350 Stool 750 200 Other: Voiding Method Indwelling Catheter Indwelling Catheter Indwelling Catheter - Labs CBC & Chem 7: 11/14/23 09:03 11/14/23 07:12 Labs: Abnormal Lab Results - Last 24 Hours (Table) 11/13/23 11/13/23 11/14/23 Range/Units 11:31 18:04 00:21 WBC (3.8-10.6) k/uL RBC (3.80-5.40) m/uL Hgb (11.4-16.0) gm/dL Hct (34.0-46.0) % MCV (80.0-100.0) fL Sodium (137-145) mmol/L Carbon Dioxide (22-30) mmol/L BUN (7-17) mg/dL Creatinine (0.52-1.04) mg/dL Glucose (74-99) mg/dL POC Glucose (mg/dL) 210 H 208 H 191 H (70-110) mg/dL Calcium (8.4-10.2) mg/dL 11/14/23 11/14/23 11/14/23 Range/Units 05:32 07:12 09:03 WBC 26.3 H (3.8-10.6) k/uL RBC 3.12 L (3.80-5.40) m/uL Hgb 10.3 L (11.4-16.0) gm/dL Hct 32.3 L (34.0-46.0) % MCV 103.3 H (80.0-100.0) fL Sodium 131 L (137-145) mmol/L Carbon Dioxide 20 L (22-30) mmol/L BUN 23 H (7-17) mg/dL Creatinine 0.46 L (0.52-1.04) mg/dL Glucose 201 H (74-99) mg/dL POC Glucose (mg/dL) 202 H (70-110) mg/dL Calcium 8.1 L (8.4-10.2) mg/dL Microbiology - Last 24 Hours (Table) 11/10/23 17:41 Blood Culture - Preliminary Blood
[2023-11-14] MEDS: ANIDULAFUNGIN 200 MG in SODIUM CHLORIDE 0.9% 200 ML IVPB ONE (12:07)
[2023-11-14 12:09] LABS: Glucose,Whole Blood 239 mg/dL (70-110)
--- NOTE | 2023-11-14 12:23 | P.PN ---
Subjective Progress Note Date: 11/14/23 Principal diagnosis: Colon obstruction Patient sitting up in the chair. Underwent sigmoid colectomy cholecystectomy and liver biopsy on Wednesday. Tolerating small volume of regular food. No nausea. Parra being removed today. Objective - Vital Signs Vital signs: Vital Signs Temp 97.8 F 11/14/23 11:26 Pulse 109 H 11/14/23 11:26 Resp 18 11/14/23 11:26 BP 126/76 11/14/23 11:26 Pulse Ox 96 11/14/23 11:26 FiO2 Intake & Output 11/13/23 11/14/23 11/14/23 18:59 06:59 18:59 Intake Total 3616.928 7631.067 358 Output Total 1100 800 Balance -47.933 1007.067 -442 Weight 74.5 kg Intake: Intake, IV Titration 647.548 1994.067 Amount Mvi, Adult No.4 with Vit 540.976 3915.067 K 10 ml Trace (Conc-1Ml/ Dose) 1 ml Calcium Gluconate 1 gm Sodium Acetate 46 meq Magnesium Sulfate gm 0.5 gm Potassium Phosphate 15 mmol In Amino Acids 5 %/ Dextrose 20 % 1,000 ml @ 52 mls/hr IV .[id number] [facility] Rx#:[id number] Oral 240 358 Output: Urine 350 600 Stool 750 200 Other: Voiding Method Indwelling Catheter Indwelling Catheter Indwelling Catheter # Bowel Movements 200 - Exam Abdomen: Soft, nondistended, mild tenderness, dressing clean and dry, ostomy with small leak from the appliance laterally, stoma slightly dusky in appearance. - Labs CBC & Chem 7: 11/14/23 09:03 11/14/23 07:12 Labs: Abnormal Lab Results - Last 24 Hours (Table) 11/13/23 11/14/23 11/14/23 Range/Units 18:04 00:21 05:32 WBC (3.8-10.6) k/uL RBC (3.80-5.40) m/uL Hgb (11.4-16.0) gm/dL Hct (34.0-46.0) % MCV (80.0-100.0) fL Sodium (137-145) mmol/L Carbon Dioxide (22-30) mmol/L BUN (7-17) mg/dL Creatinine (0.52-1.04) mg/dL Glucose (74-99) mg/dL POC Glucose (mg/dL) 208 H 191 H 202 H (70-110) mg/dL Calcium (8.4-10.2) mg/dL 11/14/23 11/14/23 11/14/23 Range/Units 07:12 09:03 12:05 WBC 26.3 H (3.8-10.6) k/uL RBC 3.12 L (3.80-5.40) m/uL Hgb 10.3 L (11.4-16.0) gm/dL Hct 32.3 L (34.0-46.0) % MCV 103.3 H (80.0-100.0) fL Sodium 131 L (137-145) mmol/L Carbon Dioxide 20 L (22-30) mmol/L BUN 23 H (7-17) mg/dL Creatinine 0.46 L (0.52-1.04) mg/dL Glucose 201 H (74-99) mg/dL POC Glucose (mg/dL) 239 H (70-110) mg/dL Calcium 8.1 L (8.4-10.2) mg/dL Microbiology - Last 24 Hours (Table) 11/10/23 17:41 Blood Culture - Preliminary Blood Assessment and Plan (1) Partial bowel obstruction Narrative/Plan: 88-year-old female doing fairly well after recent bowel resection. Continue increasing activity. Continue regular diet. Monitor ostomy appearance. Recheck labs. Current Visit: Yes Status: Acute Code(s): K56.600 - PARTIAL INTESTINAL OBSTRUCTION, UNSPECIFIED TO CAUSE SNOMED Code(s): 75696086805687194
--- NOTE | 2023-11-14 12:27 | P.PN ---
Subjective Progress Note Date: 11/14/23 Principal diagnosis: Reason for follow-up is leukocytosis Patient is a 88-year-old female with a past medical history significant for hypertension hyperlipidemia atrial fibrillation history of breast cancer chronic back pain presenting to the hospital for evaluation ab dominal pain and constipation has been diagnosed with a large bowel obstruction and concern for possible liver mets did have persistent worsening white count prompting this consultation.Patient is status post expiratory laparotomy with sigmoid resection for large bowel obstruction and descending colostomy open cholecystectomy, peritoneal large liver biopsy procedure completed on 11/12/2023 On today's evaluation that is 11/14/2023, Patient is afebrile this morning, the patient is breathing comfortably on room air overall feeling weak no energy did have some leakage around the colostomy no vomiting has been reported or any other changes by the daughter at the bedside. Patient white count is up to 26.3, creatinine 0.46 blood cultures so far negative Objective - Vital Signs Vital signs: Vital Signs Temp 98.2 F 11/14/23 07:29 Pulse 102 H 11/14/23 07:29 Resp 17 11/14/23 07:29 BP 103/58 11/14/23 07:29 Pulse Ox 97 11/14/23 07:29 FiO2 Intake & Output 11/13/23 11/14/23 11/14/23 18:59 06:59 18:59 Intake Total 2608.664 8696.067 358 Output Total 1100 800 Balance -47.933 1007.067 -442 Weight 74.5 kg Intake: Intake, IV Titration 942.219 3777.067 Amount Mvi, Adult No.4 with Vit 450.275 4324.067 K 10 ml Trace (Conc-1Ml/ Dose) 1 ml Calcium Gluconate 1 gm Sodium Acetate 46 meq Magnesium Sulfate gm 0.5 gm Potassium Phosphate 15 mmol In Amino Acids 5 %/ Dextrose 20 % 1,000 ml @ 52 mls/hr IV .[id number] [facility] Rx#:[id number] Oral 240 358 Output: Urine 350 600 Stool 750 200 Other: Voiding Method Indwelling Catheter Indwelling Catheter Indwelling Catheter # Bowel Movements 200 - Labs CBC & Chem 7: 11/14/23 09:03 11/14/23 07:12 Labs: Abnormal Lab Results - Last 24 Hours (Table) 11/13/23 11/13/23 11/14/23 Range/Units 11:31 18:04 00:21 WBC (3.8-10.6) k/uL RBC (3.80-5.40) m/uL Hgb (11.4-16.0) gm/dL Hct (34.0-46.0) % MCV (80.0-100.0) fL Sodium (137-145) mmol/L Carbon Dioxide (22-30) mmol/L BUN (7-17) mg/dL Creatinine (0.52-1.04) mg/dL Glucose (74-99) mg/dL POC Glucose (mg/dL) 210 H 208 H 191 H (70-110) mg/dL Calcium (8.4-10.2) mg/dL 11/14/23 11/14/23 11/14/23 Range/Units 05:32 07:12 09:03 WBC 26.3 H (3.8-10.6) k/uL RBC 3.12 L (3.80-5.40) m/uL Hgb 10.3 L (11.4-16.0) gm/dL Hct 32.3 L (34.0-46.0) % MCV 103.3 H (80.0-100.0) fL Sodium 131 L (137-145) mmol/L Carbon Dioxide 20 L (22-30) mmol/L BUN 23 H (7-17) mg/dL Creatinine 0.46 L (0.52-1.04) mg/dL Glucose 201 H (74-99) mg/dL POC Glucose (mg/dL) 202 H (70-110) mg/dL Calcium 8.1 L (8.4-10.2) mg/dL Microbiology - Last 24 Hours (Table) 11/10/23 17:41 Blood Culture - Preliminary Blood Assessment and Plan (1) Leukocytosis Current Visit: Yes Status: Acute Code(s): D72.829 - ELEVATED WHITE BLOOD CELL COUNT, UNSPECIFIED SNOMED Code(s): 723480758 (2) Partial bowel obstruction Current Visit: Yes Status: Acute Code(s): K56.600 - PARTIAL INTESTINAL OBSTRUCTION, UNSPECIFIED TO CAUSE SNOMED Code(s): 87511459635345349 Plan: 1patient with leukocytosis which is likely multifactorial in this patient admitted to hospital with abdominal pain and constipation has been diagnosed with a large bowel obstruction with a question of possible mass versus colitis mass may be favored as the patient did have multiple lesion in the liver concerning for metastatic disease with worsening of the white count despite b eing on Rocephin and Flagyl we need to broaden her antibiotic coverage 2-blood cultures has been repeated currently pending 3-patient is status post extensive abdominal surgery, white count is up today more likely reactive to surgery yesterday and will monitor closely, 4patient did have worsening of her white count with not able to use Diflucan because of drug interaction we will add Eraxis and continue with Zosyn 3.375 g every 8 hours, care discussed with the daughter at the bedside Dictation was produced using [employer] dictation software. please excuse any grammatical, word or spelling errors. Time with Patient: Less than 30
--- NOTE | 2023-11-14 13:51 | P.PN ---
Subjective Progress Note Date: 11/14/23 88-year-old female with past medical history of IBS, hypothyroidism, hypertension and A-fib (on Eliquis), presented to the ED with a complaint of abdominal pain on 11/04. In the ED she underwent extensive evaluation. BP 156/74, HR 64, T 98.5F, RR 16, 95% on RA. CBC, CMP performed significant for WBC 14.1, M CV 101.6, Na 133, glu 120, AST 42, total protein 6.2. Lactic acid 1.1. KUB showed dilated loops of bowel. CT AP showed partial SBO of the sigmoid colon, colitis versus mass, multiple lesions in the liver, sclerotic lesion in the left femur and abnormal soft tissue within the mesentery near the cecum. Patient was started on Rocephin and Flagyl for treatment of colitis and admitted for Surgery evaluation. She developed A-Fib with RVR on 11/06, started on Amiodarone drip and Cardiology was consulted. Metoprolol was titrated and Amiodarone drip converted to PO on 11/07. Eliquis was held and patient was started on a heparin drip in preparation for surgery. PICC line inserted for TPN 11/08. Patient with worsening leukocytosis, ID consulted on 11/09, switched to Zosyn. Also started on Cardizem drip on 11/09 for better HR control by Cardiology. Underwent exploratory laparotomy with sigmoid resection, colostomy, cholecystectomy, liver biopsy with finding of sigmoid colon mass highly suspicious for malignancy with Dr. Cedeno on 11/11. 11/13 Patient was seen and examined. POD 2. Currently receiving TPN for nutrition. She was started on Low fiber diet yesterday tolerating well. Re- started on Eliquis yesterday. Epidural discontinued yesterday. CBC WBC 26.3, RBC 3.12, Hg 10.3, Hct 32.3, MCV 103.3. BMP Na 131, bicarb 20, BUN 23, Cr 0.46, glu 201, Ca 8.1. POC glucose ranging from 191-213 with 27 units of Novolog over the past 24H. Antibiotics include Zosyn 3.375g IV TID (D4). General: non toxic, no distress, appears at stated age Derm: warm, dry Head: atraumatic, normocephalic, symmetric Eyes: EOMI, no lid lag, anicteric sclera Mouth: no lip lesion, mucus membranes moist Cardiovascular: S1S2 irreg, no murmur Lungs: CTA bilateral, no rhonchi, no rales , no accessory muscle use Ext: no gross muscle atrophy, no edema, no contractures Neuro: no focal neuro deficits Psych: Alert, oriented, appropriate affect Based on my assessment of this patient, this patient meets a high complexity level of care. Partial SBO due to sigmoid mass: POD 2. IVF as below. Morphine 2g IV Q4H PRN for pain. IV antibiotics as below. Follow pathology report (peritoneal ascites, gall bladder, liver biopsy, sigmoid mass). TPN for nutrition started 11/08. Low fiber diet started 11/12. Surgery on board. Sepsis likely due to cholecystitis : Flagyl and Rocephin switched to Zosyn 3.375g IV TID on 11/09 by ID. LR at 75 cc/hr. BCx negative so far. Peritoneal fluid cultures collected. Metabolic acidosis: Possibly related to above. Lactic acid negative. VBG shows compensated respiratory alkalosis. Could be due to hyperCl from normal saline. Improving with LR at 75 cc/hr. Atrial fibrillation with RVR: Maintain Mg > 2 and K > 4. Resume Eliquis 5 mg PO BID. Cardizem drip on hold post surgery, resume if necessary. Amiodarone 200 mg PO QD. Metoprolol 25 mg PO TID. Cardiology following. Liver and Femoral lesions: CA 15-3, 19-9, CEA wnl. AFP elvated 12.4. Follow pathology results. Oncology following. HFrEF: EF 35-40%. Euvolemic. Metoprolol as above. ACEi on hold due to hypotension. Macrocytosis: B12 and Folate wnl. Subclinical hypothyroidism: Likely due to acute illness. Continue Synthroid 100 mcg PO QD. Repeat TSH/FT4 in 6 weeks. Urinary incontinence: Myrbetriq when able to PO. Hypertension: Losartan/HCTZ on hold. Metoprolol as above. Dyslipidemia: Lipitor 20 mg PO QD. Resolved: Hypoglycemia, Hypokalemia CODE STATUS: FULL CODE DVT Prophylaxis: Eliquis GI Prophylaxis: Protonix PO Designated medical POA if patient is not able to make medical decisions for themselves: I have reviewed the following loans consultant notes: Surgery, ID, Cardiology I have reviewed the results of the following tests: BMP. POC glucose. I have ordered the following tests: CBC and BMP. I have discussed the care of this patient with the following independent historian: I have independently interpreted the following test below: I have discussed the management of this patient with the following physician: Objective - Vital Signs Vital signs: Vital Signs Temp 98.2 F 11/14/23 07:29 Pulse 102 H 11/14/23 07:29 Resp 17 11/14/23 07:29 BP 103/58 11/14/23 07:29 Pulse Ox 97 11/14/23 07:29 FiO2 Intake & Output 11/13/23 11/14/23 11/14/23 18:59 06:59 18:59 Intake Total 9084.516 6009.067 240 Output Total 1100 200 Balance -47.933 1007.067 40 Weight 74.5 kg Intake: Intake, IV Titration 113.175 6106.067 Amount Mvi, Adult No.4 with Vit 147.371 7024.067 K 10 ml Trace (Conc-1Ml/ Dose) 1 ml Calcium Gluconate 1 gm Sodium Acetate 46 meq Magnesium Sulfate gm 0.5 gm Potassium Phosphate 15 mmol In Amino Acids 5 %/ Dextrose 20 % 1,000 ml @ 52 mls/hr IV .[id number] [facility] Rx#:[id number] Oral 240 240 Output: Urine 350 Stool 750 200 Other: Voiding Method Indwelling Catheter Indwelling Catheter Indwelling Catheter - Labs CBC & Chem 7: 11/14/23 09:03 11/14/23 07:12 Labs: Abnormal Lab Results - Last 24 Hours (Table) 11/13/23 11/13/23 11/14/23 Range/Units 11:31 18:04 00:21 Sodium (137-145) mmol/L Carbon Dioxide (22-30) mmol/L BUN (7-17) mg/dL Creatinine (0.52-1.04) mg/dL Glucose (74-99) mg/dL POC Glucose (mg/dL) 210 H 208 H 191 H (70-110) mg/dL Calcium (8.4-10.2) mg/dL 11/14/23 11/14/23 Range/Units 05:32 07:12 Sodium 131 L (137-145) mmol/L Carbon Dioxide 20 L (22-30) mmol/L BUN 23 H (7-17) mg/dL Creatinine 0.46 L (0.52-1.04) mg/dL Glucose 201 H (74-99) mg/dL POC Glucose (mg/dL) 202 H (70-110) mg/dL Calcium 8.1 L (8.4-10.2) mg/dL Microbiology - Last 24 Hours (Table) 11/10/23 17:41 Blood Culture - Preliminary Blood
[2023-11-14 18:01] LABS: Glucose,Whole Blood 204 mg/dL (70-110)
[2023-11-14 23:30] LABS: Glucose,Whole Blood 204 mg/dL (70-110)
[2023-11-15] MEDS: MVI, ADULT NO.4 WITH VIT K 10 ML, TRACE (CONC-1ML/DOSE) 1 ML, CALCIUM GLUCONATE 1 GM, S... IV SCH (01:29)
[2023-11-15 05:35] LABS: Glucose,Whole Blood 185 mg/dL (70-110)
[2023-11-15 08:48] LABS: Basophils % (A) 0 %; Eosinophils # (A) 0.1 k/uL (0-0.7); Eosinophils % (A) 0 %; HCT 32.5 % (34.0-46.0); HGB 10.2 gm/dL (11.4-16.0); Lymphocytes # (A) 4.1 k/uL (1.0-4.8); Lymphocytes % (A) 21 %; MCH 32.2 pg (25.0-35.0); MCHC 31.6 g/dL (31.0-37.0); MCV 102.1 fL (80.0-100.0); Macrocytosis Slight; Mean Platelet Volume 8.2; Monocytes # (A) 0.9 k/uL (0-1.0); Monocytes % (A) 5 %; Neutrophils # (A) 14.4 k/uL (1.3-7.7); Neutrophils % (A) 72 %; Platelet Count 373 k/uL (150-450); RBC 3.18 m/uL (3.80-5.40); RDW 13.9 % (11.5-15.5); WBC 20.1 k/uL (3.8-10.6)
[2023-11-15] MEDS: ANIDULAFUNGIN 100 MG in SODIUM CHLORIDE 0.9% 100 ML IVPB SCH (09:14)
[2023-11-15 09:20] LABS: African American GFR (CKD) >90 (>60 ml/min/1.73 sqM); Blood Urea Nitrogen 15 mg/dL (7-17); Calcium 8.2 mg/dL (8.4-10.2); Carbon Dioxide 20 mmol/L (22-30); Glucose 179 mg/dL (74-99); Magnesium 1.9 mg/dL (1.6-2.3); Non-African American GFR(CKD) >90 (>60 ml/min/1.73 sqM); Phosphorus 2.6 mg/dL (2.5-4.5); Potassium 3.5 mmol/L (3.5-5.1); Sodium 133 mmol/L (137-145)
[2023-11-15 09:32] LABS: C Reactive Protein 16.9 mg/dL (<1.0)
[2023-11-15] MEDS: FUROSEMIDE 10 MG/ML 4 ML VIAL IV STA (09:36)
[2023-11-15 10:05] LABS: Anion Gap 6 mmol/L; Chloride 107 mmol/L (98-107)
--- NOTE | 2023-11-15 10:42 | P.PN ---
Subjective Progress Note Date: 11/15/23 CHIEF COMPLAINT: Large bowel obstruction HISTORY OF PRESENT ILLNESS: The patient is a 88-year-old female admitted for large bowel obstruction due to sigmoid mass. She is status post colectomy with descending colostomy, liver biopsy, peritoneal fluid culture. Her ostomy has been immediately functioning after surgery. She is tolerating some diet however decreased oral intake. No moderate abdominal pain. Her daughter is at bedside. Patient is on TPN. No new events over the weekend. White blood cell count has been trending down since surgery. I did discuss with patient and family that intraoperative findings include global small bowel and large bowel ischemia which may affect her ostomy. REVIEW OF ORGAN SYSTEMS: CARDIOVASCULAR: Has atrial fibrillation with hypertensive heart disease and h yperlipidemia. On chronic blood thinners. GASTROINTESTINAL: Prior diarrhea for colonoscopy August 2022 BREAST: History of breast cancer with lumpectomy. PHYSICAL EXAM: VITALS: Reviewed CONSTITUTIONAL: Well developed and in no acute distress. EYES: Conjuctivae without sclera icterus. Extraocular movements grossly intact. HEAD, EARS, NOSE, THROAT: Moist buccal mucosa. Head is atraumatic, normoce phalic. Hears conversational speech. No nasal drainage. RESPIRATORY: Non-labored respirations and equal bilateral excursions. No gross wheezes. CARDIOVASCULAR: Palpable 2+ radial pulses. ABDOMEN: Ostomy functioning with stool and flatus. Ostomy is dark. MUSCULOSKELETAL: No clubbing cyanosis or edema SKIN: Warm and well perfused with good skin turgor. NEUROLOGIC: Cranial nerves II through XII grossly intact. No focal or lateralizing signs. PSYCH: Appropriate affect. Alert and oriented to person, place and time. Displays appropriate insight. CLINCAL LABS: Reviewed. WBC trending downward from 24,000-20,000. ASSESSMENT: 1. Abdominal pain with distention 2. Hyponatremia 3. History of breast cancer 4. Large bowel obstruction diverticulosis 5. Diverticulosis diverticulitis 6. Abnormal CT scan for malignancy 7. Leukocytosis 8. Severe hypothyroidism 9. Atrial fibrillation with rapid ventricular response 10. Cholecystitis 11. Large bowel and small bowel ischemia PLAN: 1. Will monitor the ostomy including sloughing of the mucosa for viability. Due to low flow state and global large bowel and small bowel ischemia, may need revision of ostomy. Will closely monitor. 2. Antibiotic management due to persistent leukocytosis. Patient has been overall nontoxic in appearance during events. 3. Will add protein supplement of at least 60 g daily using Premier protein /Ensure max. 4. Disposition pending ostomy including resolution of leukocytosis as well as cultures Objective - Vital Signs Vital signs: Vital Signs Temp 97.4 F L 11/15/23 09:12 Pulse 107 H 11/15/23 09:12 Resp 17 11/15/23 09:12 BP 129/77 11/15/23 09:12 Pulse Ox 97 11/15/23 09:12 FiO2 Intake & Output 11/14/23 11/15/23 11/15/23 18:59 06:59 18:59 Intake Total 594 Output Total 1650 460 200 Balance -1056 -460 -200 Intake: Oral 594 Output: Urine 900 400 Stool 750 60 200 Other: Voiding Method Indwelling Catheter External Catheter External Catheter # Voids 1 - Labs CBC & Chem 7: 11/15/23 08:14 11/15/23 08:14 Labs: Abnormal Lab Results - Last 24 Hours (Table) 11/14/23 11/14/23 11/14/23 Range/Units 12:05 18:00 23:28 WBC (3.8-10.6) k/uL RBC (3.80-5.40) m/uL Hgb (11.4-16.0) gm/dL Hct (34.0-46.0) % MCV (80.0-100.0) fL Neutrophils # (1.3-7.7) k/uL Sodium (137-145) mmol/L Carbon Dioxide (22-30) mmol/L Creatinine (0.52-1.04) mg/dL Glucose (74-99) mg/dL POC Glucose (mg/dL) 239 H 204 H 204 H (70-110) mg/dL Calcium (8.4-10.2) mg/dL C-Reactive Protein (<1.0) mg/dL 11/15/23 11/15/23 11/15/23 Range/Units 05:33 08:14 08:14 WBC 20.1 H (3.8-10.6) k/uL RBC 3.18 L (3.80-5.40) m/uL Hgb 10.2 L (11.4-16.0) gm/dL Hct 32.5 L (34.0-46.0) % MCV 102.1 H (80.0-100.0) fL Neutrophils # 14.4 H (1.3-7.7) k/uL Sodium 133 L (137-145) mmol/L Carbon Dioxide 20 L (22-30) mmol/L Creatinine 0.40 L (0.52-1.04) mg/dL Glucose 179 H (74-99) mg/dL POC Glucose (mg/dL) 185 H (70-110) mg/dL Calcium 8.2 L (8.4-10.2) mg/dL C-Reactive Protein 16.9 H (<1.0) mg/dL Microbiology - Last 24 Hours (Table) 11/12/23 11:09 Anaerobic Culture - Final Perineal Fluid Bacteroides thetaiotaomicron 11/12/23 11:09 Gram Stain - Final Other - Other Wound Culture - Final Enterococcus faecium
[2023-11-15] MEDS: METOPROLOL TARTRATE 25 MG TAB PO STA (11:19)
[2023-11-15] MEDS: POTASSIUM CHLORIDE 20 MEQ in WATER FOR INJECTION 1 100ML.BAG IVPB SCH (11:19)
[2023-11-15 11:49] LABS: Glucose,Whole Blood 218 mg/dL (70-110)
--- NOTE | 2023-11-15 13:19 | P.PN ---
Subjective Progress Note Date: 11/15/23 Subjective: Patient seen and examined at bedside. No acute events overnight. She is s/p open sigmoid colectomy with colostomy and cholecystectomy. Postop day 3. Has spinal epidural cath removed yesterday. Her pain levels are adequate. She reports swelling in hands and feet. On Zosyn 3.375g IV TID (day 5). Pertinent positives and negatives as discussed above, a complete review of systems was performed and all other systems are negative. Vitals: Signs Reviewed Physical Exam: General: nontoxic, no distress, appears at stated age Derm: warm, dry, intact Head: atraumatic, normocephalic, symmetric Eyes: EOMI, no lid lag, anicteric sclera Mouth: no lip lesion, mucus membranes moist Cardiovascular: S1 S2 reg, no murmur, rubs, or gallops Lungs: CTA bilateral, no rhonchi, no rales, no accessory muscle use Abdominal: distended, tender to palpataion, no appreciable organomegaly Extremities: no gross muscle atrophy, no edema, no contractures Neuro: Alert, Oriented, CNII-XII grossly intact Psych: well appearing, appropriate affect Data Received Today: Pertinent Labs: CBC WBC 20.1, RBC 3.18, Hgb 3.18, 105.2, Plt 373 Coag panel wnl. BMP Na 133, Cl 109, bicarb 21, BUN 23, Cr. 0.53, glu 213, Phos 2.1, Mag 1.9, K 3.5, glucose 185 CRP 16.9 aerobic culture: enterococcus faecium anaerobic culture: bacteroides thetaiotaomicron beta-lactamase postive Imaging: No new imaging Assessment and Plan: 88-year-old female with past medical history of IBS, hypothyroid, hypertension, breast cancer, and A-fib presents with abdominal pain associated with constipation. S/p sigmoid colectomy with costomy and cholecystectomy. Postop day 1. Partial large bowel obstruction due to sigmoid mass Postop day 3. Morphine 2g IV Q4H PRN for pain. IV antibiotics as below. Follow pathology report (peritoneal ascites, gall bladder, liver biopsy, sigmoid mass). TPN for nutrition started 11/08. Low fiber diet started 11/12. Continue IV fluids 75 cc normal saline Morphine 2 mg ivp q4h prn for severe pain General surgery following Oncology following, elevated AFP 12.4, other tumor markers WNL MRI Liver results: Multiple liver lesions concerning for metastatic disease possibly gastrointestinal in origin given prior CT 11/05/2023. Finding could be secondary to mesenteric mass with tethering multiple loops of bowel. Discussed results with patient. Will wait for results from pathology on liver lesion and large bowel mass. stoma dusky, dark brown placed on IV lasix 40mg once d/t fluid retention Sepsis likely due to cholecystitis ID discontinued Flagyl 500 mg, IV ceftriaxone 2gm. Was put on Zosyn 4.375g IV TID on 11/09 by ID. anaerobic culture: bacteroides thetaiotaomicron beta-lactamase postive; aerobic culture: Enterococcus faecium placed on Eraxis 100 mls @ 84 mls/hr Will discuss with ID cultures make sure on right antibiotic course Liver and femoral mass lesions CA 15-3, 19-9, CEA wnl. AFP elvated 12.4. Follow pathology results. Oncology following. Metabolic acidosis with high anion gap Lactic acid 1.0 VBG: pH 7.35 CO2 23, HCO3 13 VBG shows compensated respiratory alkalosis. Could be due to hyperCl from normal saline. Is improving with LR at 75 cc/hr. Atrial fibrillation w/ rvr, now rate controlled Had episode of A-fib with RVR. heart rate >180. Was transferred to for further cardiac assessment Monitoring on telemetry Cardiology note reviewed. Optimized for surgery from a cardiology standpoint Cardizem drip on hold post surgery, resume if necessary. Amiodarone 200 mg PO QD. Metoprolol 25 mg PO TID. Cardiology following. Eliquis resumed 5 mg p.o. 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 Mildly increased left ventricular wall thickness Mild mitral regurgitation. Mild aortic stenosis. No pericardial effusion. Patient appears euvolemic Metoprolol tartrate 25 mg PO twice daily. Cardiology following. 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 As patient is also on IV fluids -Hold losartan Dyslipidemia, chronic Atorvastatin 20 mg PO F: NaCl 0.9% @ 75 mls/hr E: Replete as needed N: Low fiber diet A: fall precautions, hypoglycemia protocol DVT ppx: SCDs Code status: No code w/instructions Anticipated discharge place: pending clinical course Anticipated discharge time: pending clinical course I have seen and evaluated the patient today. Discussed with the resident and agree with the residents subjective and objective as documented in the resident's note. The assessment and plan was discussed and outlined as below. Pain is well controlled. Tolerating small amount of diet. Ostomy site dusky appearing per surgery may need revision. Plans to restart Heparin drip and discontinue Eliquis for possible additional surgical intervention. Partial SBO due to sigmoid mass: POD 3. IVF as below. Morphine 2g IV Q4H PRN for pain. IV antibiotics as below. Follow pathology report (peritoneal ascites, gall bladder, liver biopsy, sigmoid mass). TPN for nutrition started 11/08. Low fiber diet started 11/12. Surgery on board. Sepsis likely due to cholecystitis : Flagyl and Rocephin switched to Zosyn 3.375g IV TID on 11/09 by ID. LR at 75 cc/hr. BCx negative so far. Peritoneal fluid cultures growing Enterococcus faecium and Bacteroides thetaiotaomicron. Metabolic acidosis: Possibly related to above. Lactic acid negative. VBG shows compensated respiratory alkalosis. Could be due to hyperCl from normal saline. Improving with LR at 75 cc/hr. Atrial fibrillation with RVR: Maintain Mg > 2 and K > 4. Eliquis swtiched to heparin drip for possible additional surgical intervention. Cardizem drip on hold post surgery, resume if necessary. Amiodarone 200 mg PO QD. Metoprolol 50 mg PO BID. Cardiology following. Liver and Femoral lesions: CA 15-3, 19-9, CEA wnl. AFP elvated 12.4. Follow pathology results. Oncology following. HFrEF: EF 35-40%. Euvolemic. Metoprolol as above. ACEi on hold due to hypotension. Macrocytosis: B12 and Folate wnl. Subclinical hypothyroidism: Likely due to acute illness. Continue Synthroid 100 mcg PO QD. Repeat TSH/FT4 in 6 weeks. Urinary incontinence: Myrbetriq when able to PO. Hypertension: Losartan/HCTZ on hold. Metoprolol as above. Dyslipidemia: Lipitor 20 mg PO QD. Resolved: Hypoglycemia, Hypokalemia Objective - Vital Signs Vital signs: Vital Signs Temp 97.4 F L 11/15/23 09:12 Pulse 107 H 11/15/23 09:12 Resp 17 11/15/23 09:12 BP 129/77 11/15/23 09:12 Pulse Ox 97 11/15/23 09:12 FiO2 Intake & Output 11/14/23 11/15/23 11/15/23 18:59 06:59 18:59 Intake Total 594 Output Total 1650 460 200 Balance -1056 -460 -200 Intake: Oral 594 Output: Urine 900 400 Stool 750 60 200 Other: Voiding Method Indwelling Catheter External Catheter External Catheter # Voids 1 - Labs CBC & Chem 7: 11/15/23 08:14 11/15/23 08:14 Labs: Abnormal Lab Results - Last 24 Hours (Table) 11/14/23 11/14/23 11/14/23 Range/Units 12:05 18:00 23:28 WBC (3.8-10.6) k/uL RBC (3.80-5.40) m/uL Hgb (11.4-16.0) gm/dL Hct (34.0-46.0) % MCV (80.0-100.0) fL Neutrophils # (1.3-7.7) k/uL Sodium (137-145) mmol/L Carbon Dioxide (22-30) mmol/L Creatinine (0.52-1.04) mg/dL Glucose (74-99) mg/dL POC Glucose (mg/dL) 239 H 204 H 204 H (70-110) mg/dL Calcium (8.4-10.2) mg/dL C-Reactive Protein (<1.0) mg/dL 11/15/23 11/15/23 11/15/23 Range/Units 05:33 08:14 08:14 WBC 20.1 H (3.8-10.6) k/uL RBC 3.18 L (3.80-5.40) m/uL Hgb 10.2 L (11.4-16.0) gm/dL Hct 32.5 L (34.0-46.0) % MCV 102.1 H (80.0-100.0) fL Neutrophils # 14.4 H (1.3-7.7) k/uL Sodium 133 L (137-145) mmol/L Carbon Dioxide 20 L (22-30) mmol/L Creatinine 0.40 L (0.52-1.04) mg/dL Glucose 179 H (74-99) mg/dL POC Glucose (mg/dL) 185 H (70-110) mg/dL Calcium 8.2 L (8.4-10.2) mg/dL C-Reactive Protein 16.9 H (<1.0) mg/dL Microbiology - Last 24 Hours (Table) 11/12/23 11:09 Anaerobic Culture - Final Perineal Fluid Bacteroides thetaiotaomicron 11/12/23 11:09 Gram Stain - Final Other - Other Wound Culture - Final Enterococcus faecium
--- NOTE | 2023-11-15 14:50 | P.PN ---
Subjective Progress Note Date: 11/15/23 HISTORY OF PRESENT ILLNESS: This is a 88-year-old female with a past medical history significant for atrial fibrillation, SVT, hypertension, hyperlipidemia, and hypothyroidism. Patient follows in the office with Dr. Holloway. We have been asked to see the patient in consultation for cardiac risk assessment. Patient examined at the bedside. Patient states she presented to the hospital after not having a bowel movement for 11 days. She has been seen by general surgery and is scheduled to undergo open sigmoid colectomy with colostomy on 11/11/[address] Cedeno. Patient currently denies any chest pain or pressure. She denies any shortness of breath. Apparently, overnight the patient went tachycardic and she was prescribed IV heparin and IV amiodarone and transferred to [facility]. She converted to sinus mechanism and is maintaining sinus mechanism at the time of examination. DIAGNOSTICS: - Telemetry currently reveals sinus mechanism - Laboratory data: WBC 17.7. Hemoglobin 11.9. Platelet count 325. Sodium 139. Potassium 3.9. BUN 16. Creatinine 0.7. TSH 18.3. Free T41.67. - Current home cardiac medications include amiodarone 200 mg daily, metoprolol tartrate 25 mg twice a day, Lipitor 20 mg daily, Eliquis 5 mg twice a day. - Most recent echocardiogram obtained in July 2022 revealed ejection fraction 52%, mild aortic stenosis, mild mitral regurgitation, mild tricuspid regurgit ation 11/09/2023 Patient examined this morning at the bedside. Patient currently denies chest pain or pressure. She denies shortness of breath. She remains in atrial fibrillation with decently controlled ventricular rates. Echocardiogram completed revealing ejection fraction 35 to 40%, mild MR, mild 11/10/2023 Patient examined this morning the bedside. Patient seen up in the chair. Patient denies chest pain or pressure. She denies shortness of breath. Vital signs are stable. She remains in atrial fibrillation with heart rate between [id number]. 11/11/2023 Patient examined this morning at the bedside. Patient currently denies chest pain or pressure. She denies shortness of breath. She remains in atrial fibrillation with controlled ventricular rate. She remains on IV heparin. She is scheduled to undergo surgical intervention today. 11/13/2023 Patient is status post exploratory laparotomy, sigmoid resection, descending colostomy, cholecystectomy, and liver biopsy. Patient examined this morning the bedside. Patient currently denies chest pain or pressure. She denies shortness of breath. She remains in atrial fibrillation with controlled ventricular rate. Her IV Cardizem has been discontinued. 11/14/2023 Patient examined this morning at the bedside. Patient currently denies chest pain or pressure. She denies shortness of breath. She has been resumed back on Eliquis. She remains in atrial fibrillation with controlled ventricular rate. 11/14 Patient has been resumed on Eliquis and continued on Lopressor 25 mg twice daily. Heart rate 107, blood pressure 129/77, pulse ox 97% on room air. Telemetry is atrial fibrillation rate controlled. Repeat blood work reveals WBC 20.1, hemoglobin 10.2. BUN 15 creatinine 0.4. Patient received 1 dose of IV Lasix this morning. Patient was started back on Eliquis on 11/12. Note general surgery has recommended holding until epidural is removed. Epidural has been removed but there is concern the patient may need to have additional surgical intervention done. Patient is on TPN and oral diet. PHYSICAL EXAM: VITAL SIGNS: Reviewed. GENERAL: Well-developed in no acute distress. HEENT: Head is normocephalic. Pupils are equal, round. Sclerae anicteric. Mucous membranes of the mouth are moist. Neck supple. No JVD or thyromegaly LUNGS: Respirations even and unlabored. Lungs essentially clear to auscultation bilaterally. HEART: Irregular rate and rhythm. S1 and S2 heard. ABDOMEN: Soft. Nondistended. Nontender. EXTREMITIES: Normal range of motion. No clubbing or cyanosis. Peripheral pulses intact. No lower extremity edema NEUROLOGIC: Awake and alert. Oriented x 3. 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 Further recommendations pending patient course Nurse practitioner note has been reviewed by physician. Signing provider agrees with the documented findings, assessment, and plan of care documented by [employer] as a scribe. Objective - Vital Signs Vital signs: Vital Signs Temp 97.4 F L 11/15/23 09:12 Pulse 102 H 11/15/23 11:35 Resp 16 11/15/23 11:35 BP 142/57 11/15/23 11:35 Pulse Ox 96 11/15/23 11:35 FiO2 Intake & Output 11/14/23 11/15/23 11/15/23 18:59 06:59 18:59 Intake Total 594 358 Output Total 4793 413 2340 Balance -9396 -377 -6711 Intake: Oral 594 358 Output: Urine 359 810 9469 Stool 750 60 200 Other: Voiding Method Indwelling Catheter External Catheter External Catheter # Voids 1 - Labs CBC & Chem 7: 11/15/23 08:14 11/15/23 08:14 Labs: Abnormal Lab Results - Last 24 Hours (Table) 11/14/23 11/14/23 11/15/23 Range/Units 18:00 23:28 05:33 WBC (3.8-10.6) k/uL RBC (3.80-5.40) m/uL Hgb (11.4-16.0) gm/dL Hct (34.0-46.0) % MCV (80.0-100.0) fL Neutrophils # (1.3-7.7) k/uL Sodium (137-145) mmol/L Carbon Dioxide (22-30) mmol/L Creatinine (0.52-1.04) mg/dL Glucose (74-99) mg/dL POC Glucose (mg/dL) 204 H 204 H 185 H (70-110) mg/dL Calcium (8.4-10.2) mg/dL C-Reactive Protein (<1.0) mg/dL 11/15/23 11/15/23 11/15/23 Range/Units 08:14 08:14 11:47 WBC 20.1 H (3.8-10.6) k/uL RBC 3.18 L (3.80-5.40) m/uL Hgb 10.2 L (11.4-16.0) gm/dL Hct 32.5 L (34.0-46.0) % MCV 102.1 H (80.0-100.0) fL Neutrophils # 14.4 H (1.3-7.7) k/uL Sodium 133 L (137-145) mmol/L Carbon Dioxide 20 L (22-30) mmol/L Creatinine 0.40 L (0.52-1.04) mg/dL Glucose 179 H (74-99) mg/dL POC Glucose (mg/dL) 218 H (70-110) mg/dL Calcium 8.2 L (8.4-10.2) mg/dL C-Reactive Protein 16.9 H (<1.0) mg/dL Microbiology - Last 24 Hours (Table) 11/12/23 11:09 Anaerobic Culture - Final Perineal Fluid Bacteroides thetaiotaomicron 11/12/23 11:09 Gram Stain - Final Other - Other Wound Culture - Final Enterococcus faecium
[2023-11-15] MEDS: HEPARIN SOD,PORK IN 0.45% NACL 25,000 UNIT in 0.45% NACL 1 250ML.BAG IV SCH (16:25)
[2023-11-15] MEDS: HEPARIN SODIUM 1,000 UN/ML (10ML VL) IV ONE (16:31)
[2023-11-15 17:17] LABS: Basophils % (A) 0 %; Eosinophils # (A) 0.1 k/uL (0-0.7); Eosinophils % (A) 0 %; HCT 34.3 % (34.0-46.0); HGB 10.7 gm/dL (11.4-16.0); Lymphocytes # (A) 4.7 k/uL (1.0-4.8); Lymphocytes % (A) 23 %; MCH 32.1 pg (25.0-35.0); MCHC 31.3 g/dL (31.0-37.0); MCV 102.5 fL (80.0-100.0); Macrocytosis Slight; Mean Platelet Volume 8.6; Monocytes # (A) 1.1 k/uL (0-1.0); Monocytes % (A) 5 %; Neutrophils # (A) 14.1 k/uL (1.3-7.7); Neutrophils % (A) 68 %; Platelet Count 407 k/uL (150-450); RBC 3.34 m/uL (3.80-5.40); RDW 13.7 % (11.5-15.5); WBC 20.6 k/uL (3.8-10.6)
--- NOTE | 2023-11-15 17:31 | P.PN ---
Subjective Progress Note Date: 11/15/23 Principal diagnosis: Reason for follow-up is leukocytosis Patient is a 88-year-old female with a past medical history significant for hypertension hyperlipidemia atrial fibrillation history of breast cancer chronic back pain presenting to the hospital for evaluation ab dominal pain and constipation has been diagnosed with a large bowel obstruction and concern for possible liver mets did have persistent worsening white count prompting this consultation.Patient is status post expiratory laparotomy with sigmoid resection for large bowel obstruction and descending colostomy open cholecystectomy, peritoneal large liver biopsy procedure completed on 11/12/2023 On today's evaluation that is 11/15/2023,the patient denies any fever or any chills, patient is breathing comfortably on room air, the patient denies chest pain shortness of breath and no significant cough, patient abdominal pain has decreased in intensity no nausea vomiting she did have output in colostomy. Patient white count is down to 20.1, creatinine 0.40, abdominal cultures growing Enterococcus faecalis and bacteroids Objective - Vital Signs Vital signs: Vital Signs Temp 97.4 F L 11/15/23 09:12 Pulse 102 H 11/15/23 11:35 Resp 16 11/15/23 11:35 BP 142/57 11/15/23 11:35 Pulse Ox 96 11/15/23 11:35 FiO2 Intake & Output 11/14/23 11/15/23 11/15/23 18:59 06:59 18:59 Intake Total 594 240 Output Total 8349 104 5255 Balance -1056 -460 -910 Intake: Oral 594 240 Output: Urine 900 400 950 Stool 750 60 200 Other: Voiding Method Indwelling Catheter External Catheter External Catheter # Voids 1 - Exam GENERAL DESCRIPTION: An elderly female lying in bed in no distress RESPIRATORY SYSTEM: Unlabored breathing , decreased breath sounds at bases HEART: S1 S2 regular rate and rhythm , ABDOMEN: Soft , mild distention EXTREMITIES: No edema feet - Labs CBC & Chem 7: 11/15/23 08:14 11/15/23 08:14 Labs: Abnormal Lab Results - Last 24 Hours (Table) 11/14/23 11/14/23 11/15/23 Range/Units 18:00 23:28 05:33 WBC (3.8-10.6) k/uL RBC (3.80-5.40) m/uL Hgb (11.4-16.0) gm/dL Hct (34.0-46.0) % MCV (80.0-100.0) fL Neutrophils # (1.3-7.7) k/uL Sodium (137-145) mmol/L Carbon Dioxide (22-30) mmol/L Creatinine (0.52-1.04) mg/dL Glucose (74-99) mg/dL POC Glucose (mg/dL) 204 H 204 H 185 H (70-110) mg/dL Calcium (8.4-10.2) mg/dL C-Reactive Protein (<1.0) mg/dL 11/15/23 11/15/23 11/15/23 Range/Units 08:14 08:14 11:47 WBC 20.1 H (3.8-10.6) k/uL RBC 3.18 L (3.80-5.40) m/uL Hgb 10.2 L (11.4-16.0) gm/dL Hct 32.5 L (34.0-46.0) % MCV 102.1 H (80.0-100.0) fL Neutrophils # 14.4 H (1.3-7.7) k/uL Sodium 133 L (137-145) mmol/L Carbon Dioxide 20 L (22-30) mmol/L Creatinine 0.40 L (0.52-1.04) mg/dL Glucose 179 H (74-99) mg/dL POC Glucose (mg/dL) 218 H (70-110) mg/dL Calcium 8.2 L (8.4-10.2) mg/dL C-Reactive Protein 16.9 H (<1.0) mg/dL Microbiology - Last 24 Hours (Table) 11/12/23 11:09 Anaerobic Culture - Final Perineal Fluid Bacteroides thetaiotaomicron 11/12/23 11:09 Gram Stain - Final Other - Other Wound Culture - Final Enterococcus faecium Assessment and Plan (1) Leukocytosis Current Visit: Yes Status: Acute Code(s): D72.829 - ELEVATED WHITE BLOOD CELL COUNT, UNSPECIFIED SNOMED Code(s): 389259615 (2) Partial bowel obstruction Current Visit: Yes Status: Acute Code(s): K56.600 - PARTIAL INTESTINAL OBSTRUCTION, UNSPECIFIED TO CAUSE SNOMED Code(s): 27123425359987423 Plan: 1patient with leukocytosis which is likely multifactorial in this patient admitted to hospital with abdominal pain and constipation has been diagnosed with a large bowel obstruction with a question of possible mass versus colitis mass may be favored as the patient did have multiple lesion in the liver concerning for metastatic disease with worsening of the white count despite being on Rocephin and Flagyl we need to broaden her antibiotic coverage 2-blood cultures has been repeated currently pending 3-patient is status post extensive abdominal surgery, abdominal cultures now growing Enterococcus faecalis penicillin sensitive and Bacteroides species 4we will discontinue Zosyn and start the patient on Unasyn continue Eraxis if no yeast we will discontinue Eraxis Dictation was produced using [employer] dictation software. please excuse any grammatical, word or spelling errors. Time with Patient: Less than 30
[2023-11-15] MEDS: AMPICILLIN-SULBACTAM 3 GM in SODIUM CHLORIDE 0.9% 100 ML IVPB SCH (17:39)
[2023-11-15 17:44] LABS: Glucose,Whole Blood 218 mg/dL (70-110)
[2023-11-15 17:47] LABS: Partial Thromboplastin Time >200.0 sec (22.0-30.0)
[2023-11-15] MEDS: METOPROLOL TARTRATE 50 MG TAB PO SCH (20:42)
[2023-11-15 23:10] LABS: Glucose,Whole Blood 186 mg/dL (70-110)
[2023-11-16 05:54] LABS: Glucose,Whole Blood 201 mg/dL (70-110)
[2023-11-16 07:14] LABS: Basophils % (A) 0 %; Eosinophils # (A) 0.1 k/uL (0-0.7); Eosinophils % (A) 1 %; HCT 32.5 % (34.0-46.0); HGB 10.2 gm/dL (11.4-16.0); Lymphocytes # (A) 4.8 k/uL (1.0-4.8); Lymphocytes % (A) 25 %; MCH 32.1 pg (25.0-35.0); MCHC 31.5 g/dL (31.0-37.0); MCV 101.8 fL (80.0-100.0); Macrocytosis Slight; Mean Platelet Volume 8.4; Monocytes # (A) 1.1 k/uL (0-1.0); Monocytes % (A) 6 %; Neutrophils % (A) 66 %; Platelet Count 387 k/uL (150-450); RBC 3.19 m/uL (3.80-5.40); RDW 13.6 % (11.5-15.5); WBC 19.7 k/uL (3.8-10.6)
[2023-11-16 07:32] LABS: INR 0.9 (<1.2); Partial Thromboplastin Time 51.3 sec (22.0-30.0)
[2023-11-16 07:54] LABS: ALT 48 U/L (4-34); AST 73 U/L (14-36); African American GFR (CKD) >90 (>60 ml/min/1.73 sqM); Alkaline Phosphatase 77 U/L (38-126); Anion Gap 1 mmol/L; Blood Urea Nitrogen 14 mg/dL (7-17); Calcium 7.6 mg/dL (8.4-10.2); Carbon Dioxide 26 mmol/L (22-30); Chloride 106 mmol/L (98-107); Glucose 215 mg/dL (74-99); Magnesium 1.7 mg/dL (1.6-2.3); Non-African American GFR(CKD) >90 (>60 ml/min/1.73 sqM); Phosphorus 2.5 mg/dL (2.5-4.5); Sodium 133 mmol/L (137-145); Total Bilirubin 0.2 mg/dL (0.2-1.3); Total Protein 4.2 g/dL (6.3-8.2)
[2023-11-16] MEDS ORDERED: POTASSIUM CHLORIDE ER 20 MEQ TAB.ER PO STA (08:24)
[2023-11-16] MEDS ORDERED: POTASSIUM CHLORIDE ER 20 MEQ TAB.ER PO ONE (09:30)
[2023-11-16] MEDS: FUROSEMIDE 10 MG/ML 4 ML VIAL IV STA (11:40)
[2023-11-16] MEDS: MAGNESIUM SULFATE-D5W PMX 1 GM in DEXTROSE/WATER 1 100ML.BAG IVPB ONE (11:40)
[2023-11-16] MEDS: POTASSIUM CHLORIDE 10 MEQ in WATER FOR INJECTION 1 100ML.BAG IVPB SCH (11:41)
[2023-11-16 11:46] LABS: Glucose,Whole Blood 253 mg/dL (70-110)
[2023-11-16] MEDS: INSULIN DETEMIR (LEVEMIR) 100 UNIT/ML SYR SQ STA (12:01)
--- NOTE | 2023-11-16 13:40 | P.PN ---
Subjective Progress Note Date: 11/16/23 HISTORY OF PRESENT ILLNESS: This is a 88-year-old female with a past medical history significant for atrial fibrillation, SVT, hypertension, hyperlipidemia, and hypothyroidism. Patient follows in the office with Dr. Holloway. We have been asked to see the patient in consultation for cardiac risk assessment. Patient examined at the bedside. Patient states she presented to the hospital after not having a bowel movement for 11 days. She has been seen by general surgery and is scheduled to undergo open sigmoid colectomy with colostomy on 11/11/[address] Cedeno. Patient currently denies any chest pain or pressure. She denies any shortness of breath. Apparently, overnight the patient went tachycardic and she was prescribed IV heparin and IV amiodarone and transferred to [facility]. She converted to sinus mechanism and is maintaining sinus mechanism at the time of examination. DIAGNOSTICS: - Telemetry currently reveals sinus mechanism - Laboratory data: WBC 17.7. Hemoglobin 11.9. Platelet count 325. Sodium 139. Potassium 3.9. BUN 16. Creatinine 0.7. TSH 18.3. Free T41.67. - Current home cardiac medications include amiodarone 200 mg daily, metoprolol tartrate 25 mg twice a day, Lipitor 20 mg daily, Eliquis 5 mg twice a day. - Most recent echocardiogram obtained in July 2022 revealed ejection fraction 52%, mild aortic stenosis, mild mitral regurgitation, mild tricuspid regurgit ation 11/09/2023 Patient examined this morning at the bedside. Patient currently denies chest pain or pressure. She denies shortness of breath. She remains in atrial fibrillation with decently controlled ventricular rates. Echocardiogram completed revealing ejection fraction 35 to 40%, mild MR, mild 11/10/2023 Patient examined this morning the bedside. Patient seen up in the chair. Patient denies chest pain or pressure. She denies shortness of breath. Vital signs are stable. She remains in atrial fibrillation with heart rate between [id number]. 11/11/2023 Patient examined this morning at the bedside. Patient currently denies chest pain or pressure. She denies shortness of breath. She remains in atrial fibrillation with controlled ventricular rate. She remains on IV heparin. She is scheduled to undergo surgical intervention today. 11/13/2023 Patient is status post exploratory laparotomy, sigmoid resection, descending colostomy, cholecystectomy, and liver biopsy. Patient examined this morning the bedside. Patient currently denies chest pain or pressure. She denies shortness of breath. She remains in atrial fibrillation with controlled ventricular rate. Her IV Cardizem has been discontinued. 11/14/2023 Patient examined this morning at the bedside. Patient currently denies chest pain or pressure. She denies shortness of breath. She has been resumed back on Eliquis. She remains in atrial fibrillation with controlled ventricular rate. 11/14 Patient has been resumed on Eliquis and continued on Lopressor 25 mg twice daily. Heart rate 107, blood pressure 129/77, pulse ox 97% on room air. Telemetry is atrial fibrillation rate controlled. Repeat blood work reveals WBC 20.1, hemoglobin 10.2. BUN 15 creatinine 0.4. Patient received 1 dose of IV Lasix this morning. Patient was started back on Eliquis on 11/12. Note general surgery has recommended holding until epidural is removed. Epidural has been removed but there is concern the patient may need to have additional surgical intervention done. Patient is on TPN and oral diet. 11/15 Patient is seen today sitting up in a chair. She denies chest pain known palpitations. She remains in atrial fibrillation. Yesterday we resumed her back on Eliquis as there was concern that patient may need surgical intervention. Blood pressure 123/67, heart rate 96, pulse ox 97% on room air. No medication changes made today. PHYSICAL EXAM: VITAL SIGNS: Reviewed. GENERAL: Well-developed in no acute distress. HEENT: Head is normocephalic. Pupils are equal, round. Sclerae anicteric. Mucous membranes of the mouth are moist. Neck supple. No JVD or thyromegaly LUNGS: Respirations even and unlabored. Lungs essentially clear to auscultation bilaterally. HEART: Irregular rate and rhythm. S1 and S2 heard. ABDOMEN: Soft. Nondistended. Nontender. EXTREMITIES: Normal range of motion. No clubbing or cyanosis. Peripheral pulses intact. No lower extremity edema NEUROLOGIC: Awake and alert. Oriented x 3. ASSESSMENT: Bowel obstruction, status post exploratory laparotomy, sigmoid resection, descending colostomy, cholecystectomy, and liver biopsy Multiple hepatic lesions, status post biopsy in OR Cholecystitis s/p cholecystectomy, 11/12/2023 Paroxysmal atrial fibrillation History of cardioversion, 2022 Hypertension Hyperlipidemia History of paroxysmal SVT Hypothyroidism New onset cardiomyopathy, 35 to 40%, ischemic versus nonischemic PLAN: Continue postoperative management per general surgery Continue current cardiac medications amiodarone 200 mg daily, atorvastatin 20 mg daily, Increased metoprolol tartrate to 50 mg twice daily for better rate control Discussed with general surgery and because patient may require additional surgical intervention, Eliquis will be discontinued and patient will be started back on heparin drip. Further recommendations pending patient course Nurse practitioner note has been reviewed by physician. Signing provider agrees with the documented findings, assessment, and plan of care documented by CLOTH TEARER as a scribe. Objective - Vital Signs Vital signs: Vital Signs Temp 97.8 F 11/16/23 08:52 Pulse 96 11/16/23 08:52 Resp 15 11/16/23 08:52 BP 125/67 11/16/23 08:52 Pulse Ox 97 11/16/23 08:52 FiO2 Intake & Output 11/15/23 11/16/23 11/16/23 18:59 06:59 18:59 Intake Total 358 999.267 364 Output Total 1850 1600 Balance -1492 -600.733 364 Weight 74.5 kg 74.1 kg Intake: Intake, IV Titration 999.267 Amount Mvi, Adult No.4 with Vit 999.267 K 10 ml Trace (Conc-1Ml/ Dose) 1 ml Calcium Gluconate 1 gm Sodium Acetate 50 meq Magnesium Sulfate gm 0.5 gm Potassium Phosphate 15 mmol In Amino Acids 5 %/ Dextrose 20 % 1,000 ml @ 52 mls/hr IV .[id number] [facility] Rx#:[id number] Oral 358 364 Output: Urine 1650 1600 Stool 200 Other: Voiding Method External Catheter External Catheter External Catheter # Voids 2 # Bowel Movements 1 - Labs CBC & Chem 7: 11/16/23 06:21 11/16/23 06:21 Labs: Abnormal Lab Results - Last 24 Hours (Table) 11/15/23 11/15/23 11/15/23 Range/Units 11:47 16:49 16:49 WBC 20.6 H (3.8-10.6) k/uL RBC 3.34 L (3.80-5.40) m/uL Hgb 10.7 L (11.4-16.0) gm/dL Hct (34.0-46.0) % MCV 102.5 H (80.0-100.0) fL Neutrophils # 14.1 H (1.3-7.7) k/uL Monocytes # 1.1 H (0-1.0) k/uL APTT >200.0 H* (22.0-30.0) sec Sodium (137-145) mmol/L Potassium (3.5-5.1) mmol/L Creatinine (0.52-1.04) mg/dL Glucose (74-99) mg/dL POC Glucose (mg/dL) 218 H (70-110) mg/dL Calcium (8.4-10.2) mg/dL AST (14-36) U/L ALT (4-34) U/L Total Protein (6.3-8.2) g/dL Albumin (3.5-5.0) g/dL 11/15/23 11/15/23 11/15/23 Range/Units 17:42 22:18 23:07 WBC (3.8-10.6) k/uL RBC (3.80-5.40) m/uL Hgb (11.4-16.0) gm/dL Hct (34.0-46.0) % MCV (80.0-100.0) fL Neutrophils # (1.3-7.7) k/uL Monocytes # (0-1.0) k/uL APTT 55.0 H (22.0-30.0) sec Sodium (137-145) mmol/L Potassium (3.5-5.1) mmol/L Creatinine (0.52-1.04) mg/dL Glucose (74-99) mg/dL POC Glucose (mg/dL) 218 H 186 H (70-110) mg/dL Calcium (8.4-10.2) mg/dL AST (14-36) U/L ALT (4-34) U/L Total Protein (6.3-8.2) g/dL Albumin (3.5-5.0) g/dL 11/16/23 11/16/23 11/16/23 Range/Units 05:52 06:21 06:21 WBC 19.7 H (3.8-10.6) k/uL RBC 3.19 L (3.80-5.40) m/uL Hgb 10.2 L (11.4-16.0) gm/dL Hct 32.5 L (34.0-46.0) % MCV 101.8 H (80.0-100.0) fL Neutrophils # 13.0 H (1.3-7.7) k/uL Monocytes # 1.1 H (0-1.0) k/uL APTT (22.0-30.0) sec Sodium 133 L (137-145) mmol/L Potassium 3.0 L (3.5-5.1) mmol/L Creatinine 0.39 L (0.52-1.04) mg/dL Glucose 215 H (74-99) mg/dL POC Glucose (mg/dL) 201 H (70-110) mg/dL Calcium 7.6 L (8.4-10.2) mg/dL AST 73 H (14-36) U/L ALT 48 H (4-34) U/L Total Protein 4.2 L (6.3-8.2) g/dL Albumin 2.0 L (3.5-5.0) g/dL 11/16/23 Range/Units 06:21 WBC (3.8-10.6) k/uL RBC (3.80-5.40) m/uL Hgb (11.4-16.0) gm/dL Hct (34.0-46.0) % MCV (80.0-100.0) fL Neutrophils # (1.3-7.7) k/uL Monocytes # (0-1.0) k/uL APTT 51.3 H (22.0-30.0) sec Sodium (137-145) mmol/L Potassium (3.5-5.1) mmol/L Creatinine (0.52-1.04) mg/dL Glucose (74-99) mg/dL POC Glucose (mg/dL) (70-110) mg/dL Calcium (8.4-10.2) mg/dL AST (14-36) U/L ALT (4-34) U/L Total Protein (6.3-8.2) g/dL Albumin (3.5-5.0) g/dL Microbiology - Last 24 Hours (Table) 11/10/23 17:41 Blood Culture - Final Blood
--- NOTE | 2023-11-16 14:13 | P.PN ---
Subjective Progress Note Date: 11/16/23 CHIEF COMPLAINT: Large bowel obstruction HISTORY OF PRESENT ILLNESS: The patient is a 88-year-old female admitted for large bowel obstruction due to sigmoid mass. She is status post colectomy with descending colostomy, liver biopsy, peritoneal fluid culture. Her ostomy is functioning. Her pain is controlled. She reports occasionally needing the IV morphine. Denies any nausea or vomiting. Her stoma remains dusky. Patient sitting at bedside chair. Afebrile. WBC is down from 20.6-19.7 potassium 3.0 and is being replaced PHYSICAL EXAM: VITAL SIGNS: Reviewed GENERAL: Well-developed in no acute distress. HEENT: No sclera icterus. Extraocular movements grossly intact. Moist buccal mucosa. Head is atraumatic, normocephalic. Hears conversational speech. No nasal drainage. NECK: Supple without lymphadenopathy. CHEST: Non-labored respirations and equal bilateral excursions. CARDIOVASCULAR: Palpable 2+ radial pulses. ABDOMEN: Prevana wound VAC intact. Stoma is dark. There is stool present in ostomy MUSCULOSKELETAL: No clubbing or cyanosis. NEUROLOGIC: No focal or lateralizing signs. Cranial nerves II through XII grossly intact. PSYCH: Appropriate affect. Alert and oriented to person, place and time. SKIN: Well perfused. Good skin turgor. ASSESSMENT: 1. Abdominal pain with distention 2. Hyponatremia 3. History of breast cancer 4. Large bowel obstruction diverticulosis 5. Diverticulosis diverticulitis 6. Abnormal CT scan for malignancy 7. Leukocytosis 8. Severe hypothyroidism 9. Atrial fibrillation with rapid ventricular response 10. Cholecystitis 11. Large bowel obstruction and small bowel ischemia PLAN: -Continue to monitor stoma. Monitor for sloughing of the mucosa for viability.Due to low flow state and global large bowel and small bowel ischemia, may need revision of ostomy. Will closely monitor. -Continue antibiotics -Continue protein supplement -Currently on IV heparin for anticoagulation -Continue pain management. Tylenol added for further pain control. -Encourage patient to increase activity level Physician Fulfillment Representative note has been reviewed by physician. Signing provider agrees with the documented findings, assessment, and plan of care. Please see additional documentation below. As above. Leukocytosis still present. Patient had small bowel ischemia including large bowel ischemia at the time of initial procedure. Will monitor ostomy. Continue IV heparin. Objective - Vital Signs Vital signs: Vital Signs Temp 97.6 F 07/16/24 11:38 Pulse 89 11/16/23 12:51 Resp 15 11/16/23 11:38 BP 132/81 11/16/23 11:38 Pulse Ox 98 11/16/23 11:38 FiO2 Intake & Output 11/15/23 11/16/23 11/16/23 18:59 06:59 18:59 Intake Total 358 999.267 482 Output Total 1850 1600 1700 Balance -1492 -600.733 -1218 Weight 74.5 kg 74.1 kg Intake: Intake, IV Titration 999.267 Amount Mvi, Adult No.4 with Vit 999.267 K 10 ml Trace (Conc-1Ml/ Dose) 1 ml Calcium Gluconate 1 gm Sodium Acetate 50 meq Magnesium Sulfate gm 0.5 gm Potassium Phosphate 15 mmol In Amino Acids 5 %/ Dextrose 20 % 1,000 ml @ 52 mls/hr IV .[id number] [facility] Rx#:[id number] Oral 358 482 Output: Urine 1650 1600 1000 Stool 200 700 Other: Voiding Method External Catheter External Catheter External Catheter # Voids 2 # Bowel Movements 1 - Labs CBC & Chem 7: 11/22/23 07:33 11/22/23 07:33 Labs: Abnormal Lab Results - Last 24 Hours (Table) 11/15/23 11/15/23 11/15/23 Range/Units 16:49 16:49 17:42 WBC 20.6 H (3.8-10.6) k/uL RBC 3.34 L (3.80-5.40) m/uL Hgb 10.7 L (11.4-16.0) gm/dL Hct (34.0-46.0) % MCV 102.5 H (80.0-100.0) fL Neutrophils # 14.1 H (1.3-7.7) k/uL Monocytes # 1.1 H (0-1.0) k/uL APTT >200.0 H* (22.0-30.0) sec Sodium (137-145) mmol/L Potassium (3.5-5.1) mmol/L Creatinine (0.52-1.04) mg/dL Glucose (74-99) mg/dL POC Glucose (mg/dL) 218 H (70-110) mg/dL Calcium (8.4-10.2) mg/dL AST (14-36) U/L ALT (4-34) U/L Total Protein (6.3-8.2) g/dL Albumin (3.5-5.0) g/dL 11/15/23 11/15/23 11/16/23 Range/Units 22:18 23:07 05:52 WBC (3.8-10.6) k/uL RBC (3.80-5.40) m/uL Hgb (11.4-16.0) gm/dL Hct (34.0-46.0) % MCV (80.0-100.0) fL Neutrophils # (1.3-7.7) k/uL Monocytes # (0-1.0) k/uL APTT 55.0 H (22.0-30.0) sec Sodium (137-145) mmol/L Potassium (3.5-5.1) mmol/L Creatinine (0.52-1.04) mg/dL Glucose (74-99) mg/dL POC Glucose (mg/dL) 186 H 201 H (70-110) mg/dL Calcium (8.4-10.2) mg/dL AST (14-36) U/L ALT (4-34) U/L Total Protein (6.3-8.2) g/dL Albumin (3.5-5.0) g/dL 11/16/23 11/16/23 11/16/23 Range/Units 06:21 06:21 06:21 WBC 19.7 H (3.8-10.6) k/uL RBC 3.19 L (3.80-5.40) m/uL Hgb 10.2 L (11.4-16.0) gm/dL Hct 32.5 L (34.0-46.0) % MCV 101.8 H (80.0-100.0) fL Neutrophils # 13.0 H (1.3-7.7) k/uL Monocytes # 1.1 H (0-1.0) k/uL APTT 51.3 H (22.0-30.0) sec Sodium 133 L (137-145) mmol/L Potassium 3.0 L (3.5-5.1) mmol/L Creatinine 0.39 L (0.52-1.04) mg/dL Glucose 215 H (74-99) mg/dL POC Glucose (mg/dL) (70-110) mg/dL Calcium 7.6 L (8.4-10.2) mg/dL AST 73 H (14-36) U/L ALT 48 H (4-34) U/L Total Protein 4.2 L (6.3-8.2) g/dL Albumin 2.0 L (3.5-5.0) g/dL 11/16/23 Range/Units 11:45 WBC (3.8-10.6) k/uL RBC (3.80-5.40) m/uL Hgb (11.4-16.0) gm/dL Hct (34.0-46.0) % MCV (80.0-100.0) fL Neutrophils # (1.3-7.7) k/uL Monocytes # (0-1.0) k/uL APTT (22.0-30.0) sec Sodium (137-145) mmol/L Potassium (3.5-5.1) mmol/L Creatinine (0.52-1.04) mg/dL Glucose (74-99) mg/dL POC Glucose (mg/dL) 253 H (70-110) mg/dL Calcium (8.4-10.2) mg/dL AST (14-36) U/L ALT (4-34) U/L Total Protein (6.3-8.2) g/dL Albumin (3.5-5.0) g/dL Microbiology - Last 24 Hours (Table) 11/10/23 17:41 Blood Culture - Final Blood
--- NOTE | 2023-11-16 15:39 | P.PN ---
Subjective Progress Note Date: 11/16/23 Principal diagnosis: Reason for follow-up is leukocytosis Patient is a 88-year-old female with a past medical history significant for hypertension hyperlipidemia atrial fibrillation history of breast cancer chronic back pain presenting to the hospital for evaluation ab dominal pain and constipation has been diagnosed with a large bowel obstruction and concern for possible liver mets did have persistent worsening white count prompting this consultation.Patient is status post expiratory laparotomy with sigmoid resection for large bowel obstruction and descending colostomy open cholecystectomy, peritoneal large liver biopsy procedure completed on 11/12/2023 On today's evaluation that is 11/16/2023,the patient remains to be afebrile, patient is on room air not requiring supplemental oxygen and denies any shortness of breath no chest pain or cough.Patient denies having any nausea or vomiting, did have improvement in abdominal pain and no new symptoms. Patient white count is down to 19.7, creatinine 0.39 Objective - Vital Signs Vital signs: Vital Signs Temp 98.0 F 11/16/23 15:01 Pulse 108 H 11/16/23 15:01 Resp 15 11/16/23 15:01 BP 123/82 11/16/23 15:01 Pulse Ox 97 11/16/23 15:01 FiO2 Intake & Output 11/15/23 11/16/23 11/16/23 18:59 06:59 18:59 Intake Total 358 999.267 482 Output Total 1850 1600 1700 Balance -1492 -600.733 -1218 Weight 74.5 kg 74.1 kg Intake: Intake, IV Titration 999.267 Amount Mvi, Adult No.4 with Vit 999.267 K 10 ml Trace (Conc-1Ml/ Dose) 1 ml Calcium Gluconate 1 gm Sodium Acetate 50 meq Magnesium Sulfate gm 0.5 gm Potassium Phosphate 15 mmol In Amino Acids 5 %/ Dextrose 20 % 1,000 ml @ 52 mls/hr IV .[id number] [facility] Rx#:[id number] Oral 358 482 Output: Urine 1650 1600 1000 Stool 200 700 Other: Voiding Method External Catheter External Catheter External Catheter # Voids 2 # Bowel Movements 1 - Exam GENERAL DESCRIPTION: An elderly female lying in bed in no distress RESPIRATORY SYSTEM: Unlabored breathing , decreased breath sounds at bases HEART: S1 S2 regular rate and rhythm , ABDOMEN: Soft , mild distention EXTREMITIES: No edema feet - Labs CBC & Chem 7: 11/16/23 06:21 11/16/23 06:21 Labs: Abnormal Lab Results - Last 24 Hours (Table) 11/15/23 11/15/23 11/15/23 Range/Units 16:49 16:49 17:42 WBC 20.6 H (3.8-10.6) k/uL RBC 3.34 L (3.80-5.40) m/uL Hgb 10.7 L (11.4-16.0) gm/dL Hct (34.0-46.0) % MCV 102.5 H (80.0-100.0) fL Neutrophils # 14.1 H (1.3-7.7) k/uL Monocytes # 1.1 H (0-1.0) k/uL APTT >200.0 H* (22.0-30.0) sec Sodium (137-145) mmol/L Potassium (3.5-5.1) mmol/L Creatinine (0.52-1.04) mg/dL Glucose (74-99) mg/dL POC Glucose (mg/dL) 218 H (70-110) mg/dL Calcium (8.4-10.2) mg/dL AST (14-36) U/L ALT (4-34) U/L Total Protein (6.3-8.2) g/dL Albumin (3.5-5.0) g/dL 11/15/23 11/15/23 11/16/23 Range/Units 22:18 23:07 05:52 WBC (3.8-10.6) k/uL RBC (3.80-5.40) m/uL Hgb (11.4-16.0) gm/dL Hct (34.0-46.0) % MCV (80.0-100.0) fL Neutrophils # (1.3-7.7) k/uL Monocytes # (0-1.0) k/uL APTT 55.0 H (22.0-30.0) sec Sodium (137-145) mmol/L Potassium (3.5-5.1) mmol/L Creatinine (0.52-1.04) mg/dL Glucose (74-99) mg/dL POC Glucose (mg/dL) 186 H 201 H (70-110) mg/dL Calcium (8.4-10.2) mg/dL AST (14-36) U/L ALT (4-34) U/L Total Protein (6.3-8.2) g/dL Albumin (3.5-5.0) g/dL 11/16/23 11/16/23 11/16/23 Range/Units 06:21 06:21 06:21 WBC 19.7 H (3.8-10.6) k/uL RBC 3.19 L (3.80-5.40) m/uL Hgb 10.2 L (11.4-16.0) gm/dL Hct 32.5 L (34.0-46.0) % MCV 101.8 H (80.0-100.0) fL Neutrophils # 13.0 H (1.3-7.7) k/uL Monocytes # 1.1 H (0-1.0) k/uL APTT 51.3 H (22.0-30.0) sec Sodium 133 L (137-145) mmol/L Potassium 3.0 L (3.5-5.1) mmol/L Creatinine 0.39 L (0.52-1.04) mg/dL Glucose 215 H (74-99) mg/dL POC Glucose (mg/dL) (70-110) mg/dL Calcium 7.6 L (8.4-10.2) mg/dL AST 73 H (14-36) U/L ALT 48 H (4-34) U/L Total Protein 4.2 L (6.3-8.2) g/dL Albumin 2.0 L (3.5-5.0) g/dL 11/16/23 Range/Units 11:45 WBC (3.8-10.6) k/uL RBC (3.80-5.40) m/uL Hgb (11.4-16.0) gm/dL Hct (34.0-46.0) % MCV (80.0-100.0) fL Neutrophils # (1.3-7.7) k/uL Monocytes # (0-1.0) k/uL APTT (22.0-30.0) sec Sodium (137-145) mmol/L Potassium (3.5-5.1) mmol/L Creatinine (0.52-1.04) mg/dL Glucose (74-99) mg/dL POC Glucose (mg/dL) 253 H (70-110) mg/dL Calcium (8.4-10.2) mg/dL AST (14-36) U/L ALT (4-34) U/L Total Protein (6.3-8.2) g/dL Albumin (3.5-5.0) g/dL Microbiology - Last 24 Hours (Table) 11/10/23 17:41 Blood Culture - Final Blood Assessment and Plan (1) Leukocytosis Current Visit: Yes Status: Acute Code(s): D72.829 - ELEVATED WHITE BLOOD CELL COUNT, UNSPECIFIED SNOMED Code(s): 304853667 (2) Partial bowel obstruction Current Visit: Yes Status: Acute Code(s): K56.600 - PARTIAL INTESTINAL OBSTRUCTION, UNSPECIFIED TO CAUSE SNOMED Code(s): 55088882377676350 Plan: 1patient with leukocytosis which is likely multifactorial in this patient admitted to hospital with abdominal pain and constipation has been diagnosed with a large bowel obstruction with a question of possible mass versus colitis mass may be favored as the patient did have multiple lesion in the liver concerning for metastatic disease with worsening of the white count despite being on Rocephin and Flagyl we need to broaden her antibiotic coverage 2-blood cultures has been repeated currently pending 3-patient is status post extensive abdominal surgery, abdominal cultures now growing Enterococcus faecalis penicillin sensitive and Bacteroides species 4patient to continue with Unasyn we will discontinue Eraxis as no yeast and Flagyl for better bacteroids coverage Dictation was produced using [employer] dictation software. please excuse any grammatical, word or spelling errors. Time with Patient: Less than 30
--- NOTE | 2023-11-16 15:46 | P.PN ---
Subjective Progress Note Date: 11/16/23 Subjective: Patient seen and examined at bedside. No acute events overnight. She is s/p open sigmoid colectomy with colostomy and cholecystectomy. Her pain levels are adequate. She reports swelling in hands and feet have improved. Having adequate output from ostomy. Pertinent positives and negatives as discussed above, a complete review of systems was performed and all other systems are negative. Vitals: Signs Reviewed Physical Exam: General: nontoxic, no distress, appears at stated age Derm: warm, dry, intact Head: atraumatic, normocephalic, symmetric Eyes: EOMI, no lid lag, anicteric sclera Mouth: no lip lesion, mucus membranes moist Cardiovascular: S1 S2 reg, no murmur, rubs, or gallops Lungs: CTA bilateral, no rhonchi, no rales, no accessory muscle use Abdominal: distended, tender to palpataion, no appreciable organomegaly, ostomy in place, stoma slightly dusky Extremities: no gross muscle atrophy, no edema, no contractures Neuro: Alert, Oriented, CNII-XII grossly intact Psych: well appearing, appropriate affect Data Received Today: Pertinent Labs: WBC 19.7 (neutrophils 13), Hgb 10.2, MCV 101.8 PTT 51.3. BMP: POC glucose 253, AST 73, ALT 40, total protein 4.2, albumin 2.0, potassium 3, sodium 133, blood sugars range between 1 86-2 53 Imaging: No new imaging Assessment and Plan: 88-year-old female with past medical history of IBS, hypothyroid, hypertension, breast cancer, and A-fib presents with abdominal pain associated with constipation. S/p sigmoid colectomy with costomy and cholecystectomy Partial large bowel obstruction due to sigmoid mass s/p sigmoid colectomy with costomy and cholecystectomy Liver and femoral mass lesions Postop day 4. IV antibiotics as below. Follow pathology report (peritoneal ascites, gall bladder, liver biopsy, sigmoid mass). TPN for nutrition started 11/08. Low fiber diet started 11/12. Continue IV fluids 75 cc normal saline Morphine 2 mg ivp q4h prn for severe pain, monitor for sedation General surgery note reviewed, may need revision of ostomy Oncology following, elevated AFP 12.4, other tumor markers WNL MRI Liver results: Multiple liver lesions concerning for metastatic disease possibly gastrointestinal in origin given prior CT 11/05/2023. Finding could be secondary to mesenteric mass with tethering multiple loops of bowel Pathology report pending Hypoalbuminemia Anasarca Heart failure with reduced ejection fraction 35 to 40%, not in exacerbation Albumin 2.0, total protein 4.2 Likely due to malnutrition. Patient on TPN Will encourage to increase oral intake Likely cause of edema. IV Lasix 40 mg given once today, monitor electrolytes and urine output Results on echocardiogram doppler showed left ventricular ejection fraction 35 to 40%. Mildly increased left ventricular wall thickness Mild mitral regurgitation. Mild aortic stenosis. No pericardial effusion. Metoprolol tartrate 50 mg PO twice daily. Cardiology following. Leukocytosis, neutrophilic predominance Infectious versus reactive ID discontinued, IV ceftriaxone 2gm. Was put on Zosyn 4.375g IV TID on 11/09 by ID., Also started on oral Flagyl 500 3 times daily Peritoneal cultures: anaerobic culture: bacteroides thetaiotaomicron beta- lactamase postive; aerobic culture: Enterococcus faecium Eraxis discontinued, as no indication for antifungals at the moment Will discuss with ID cultures make sure on right antibiotic course Metabolic acidosis with high anion gap, resolved Atrial fibrillation w/ rvr, now rate controlled Monitoring on telemetry Cardiology note reviewed. 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 Discussed with the resident and agree with the residents finding and plan as documented in the resident's note. Changes highlighted in blue font. Objective - Vital Signs Vital signs: Vital Signs Temp 98.0 F 11/16/23 15:01 Pulse 108 H 11/16/23 15:01 Resp 15 11/16/23 15:01 BP 123/82 11/16/23 15:01 Pulse Ox 97 11/16/23 15:01 FiO2 Intake & Output 11/15/23 11/16/23 11/16/23 18:59 06:59 18:59 Intake Total 358 999.267 482 Output Total 1850 1600 1700 Balance -1492 -600.733 -1218 Weight 74.5 kg 74.1 kg Intake: Intake, IV Titration 999.267 Amount Mvi, Adult No.4 with Vit 999.267 K 10 ml Trace (Conc-1Ml/ Dose) 1 ml Calcium Gluconate 1 gm Sodium Acetate 50 meq Magnesium Sulfate gm 0.5 gm Potassium Phosphate 15 mmol In Amino Acids 5 %/ Dextrose 20 % 1,000 ml @ 52 mls/hr IV .[id number] [facility] Rx#:[id number] Oral 358 482 Output: Urine 1650 1600 1000 Stool 200 700 Other: Voiding Method External Catheter External Catheter External Catheter # Voids 2 # Bowel Movements 1 - Labs CBC & Chem 7: 11/16/23 06:21 11/16/23 06:21 Labs: Abnormal Lab Results - Last 24 Hours (Table) 11/15/23 11/15/23 11/15/23 Range/Units 16:49 16:49 17:42 WBC 20.6 H (3.8-10.6) k/uL RBC 3.34 L (3.80-5.40) m/uL Hgb 10.7 L (11.4-16.0) gm/dL Hct (34.0-46.0) % MCV 102.5 H (80.0-100.0) fL Neutrophils # 14.1 H (1.3-7.7) k/uL Monocytes # 1.1 H (0-1.0) k/uL APTT >200.0 H* (22.0-30.0) sec Sodium (137-145) mmol/L Potassium (3.5-5.1) mmol/L Creatinine (0.52-1.04) mg/dL Glucose (74-99) mg/dL POC Glucose (mg/dL) 218 H (70-110) mg/dL Calcium (8.4-10.2) mg/dL AST (14-36) U/L ALT (4-34) U/L Total Protein (6.3-8.2) g/dL Albumin (3.5-5.0) g/dL 11/15/23 11/15/23 11/16/23 Range/Units 22:18 23:07 05:52 WBC (3.8-10.6) k/uL RBC (3.80-5.40) m/uL Hgb (11.4-16.0) gm/dL Hct (34.0-46.0) % MCV (80.0-100.0) fL Neutrophils # (1.3-7.7) k/uL Monocytes # (0-1.0) k/uL APTT 55.0 H (22.0-30.0) sec Sodium (137-145) mmol/L Potassium (3.5-5.1) mmol/L Creatinine (0.52-1.04) mg/dL Glucose (74-99) mg/dL POC Glucose (mg/dL) 186 H 201 H (70-110) mg/dL Calcium (8.4-10.2) mg/dL AST (14-36) U/L ALT (4-34) U/L Total Protein (6.3-8.2) g/dL Albumin (3.5-5.0) g/dL 11/16/23 11/16/23 11/16/23 Range/Units 06:21 06:21 06:21 WBC 19.7 H (3.8-10.6) k/uL RBC 3.19 L (3.80-5.40) m/uL Hgb 10.2 L (11.4-16.0) gm/dL Hct 32.5 L (34.0-46.0) % MCV 101.8 H (80.0-100.0) fL Neutrophils # 13.0 H (1.3-7.7) k/uL Monocytes # 1.1 H (0-1.0) k/uL APTT 51.3 H (22.0-30.0) sec Sodium 133 L (137-145) mmol/L Potassium 3.0 L (3.5-5.1) mmol/L Creatinine 0.39 L (0.52-1.04) mg/dL Glucose 215 H (74-99) mg/dL POC Glucose (mg/dL) (70-110) mg/dL Calcium 7.6 L (8.4-10.2) mg/dL AST 73 H (14-36) U/L ALT 48 H (4-34) U/L Total Protein 4.2 L (6.3-8.2) g/dL Albumin 2.0 L (3.5-5.0) g/dL 11/16/23 Range/Units 11:45 WBC (3.8-10.6) k/uL RBC (3.80-5.40) m/uL Hgb (11.4-16.0) gm/dL Hct (34.0-46.0) % MCV (80.0-100.0) fL Neutrophils # (1.3-7.7) k/uL Monocytes # (0-1.0) k/uL APTT (22.0-30.0) sec Sodium (137-145) mmol/L Potassium (3.5-5.1) mmol/L Creatinine (0.52-1.04) mg/dL Glucose (74-99) mg/dL POC Glucose (mg/dL) 253 H (70-110) mg/dL Calcium (8.4-10.2) mg/dL AST (14-36) U/L ALT (4-34) U/L Total Protein (6.3-8.2) g/dL Albumin (3.5-5.0) g/dL Microbiology - Last 24 Hours (Table) 11/10/23 17:41 Blood Culture - Final Blood
[2023-11-16] MEDS: metroNIDAZOLE 500 MG TAB PO SCH (16:47)
[2023-11-16] MEDS: MVI, ADULT NO.4 WITH VIT K 10 ML, TRACE (CONC-1ML/DOSE) 1 ML, CALCIUM GLUCONATE 1 GM, S... IV SCH (16:48)
[2023-11-16 18:04] LABS: Glucose,Whole Blood 249 mg/dL (70-110)
[2023-11-16 23:14] LABS: Glucose,Whole Blood 235 mg/dL (70-110)
[2023-11-17 06:01] LABS: Glucose,Whole Blood 153 mg/dL (70-110)
[2023-11-17] MEDS: INSULIN DETEMIR (LEVEMIR) 100 UNIT/ML SYR SQ SCH (06:26)
[2023-11-17 08:42] LABS: HCT 36.5 % (34.0-46.0); HGB 11.3 gm/dL (11.4-16.0); MCV 103.1 fL (80.0-100.0); Macrocytosis Slight; Mean Platelet Volume 8.4; Platelet Count 442 k/uL (150-450); RBC 3.54 m/uL (3.80-5.40); RDW 13.5 % (11.5-15.5); WBC 26.9 k/uL (3.8-10.6)
[2023-11-17 09:01] LABS: Ionized Calcium 4.8 mg/dL (4.5-5.3)
[2023-11-17 09:19] LABS: ALT 80 U/L (4-34); AST 89 U/L (14-36); African American GFR (CKD) >90 (>60 ml/min/1.73 sqM); Albumin 2.2 g/dL (3.5-5.0); Alkaline Phosphatase 98 U/L (38-126); Anion Gap 4 mmol/L; Blood Urea Nitrogen 14 mg/dL (7-17); Carbon Dioxide 26 mmol/L (22-30); Chloride 103 mmol/L (98-107); Glucose 195 mg/dL (74-99); Magnesium 1.8 mg/dL (1.6-2.3); Non-African American GFR(CKD) >90 (>60 ml/min/1.73 sqM); Phosphorus 2.5 mg/dL (2.5-4.5); Potassium 3.4 mmol/L (3.5-5.1); Sodium 133 mmol/L (137-145); Total Bilirubin 0.4 mg/dL (0.2-1.3); Total Protein 4.6 g/dL (6.3-8.2)
--- NOTE | 2023-11-17 11:12 | P.PN ---
Subjective Progress Note Date: 11/17/23 HISTORY OF PRESENT ILLNESS: This is a 88-year-old female with a past medical history significant for atrial fibrillation, SVT, hypertension, hyperlipidemia, and hypothyroidism. Patient follows in the office with Dr. Holloway. We have been asked to see the patient in consultation for cardiac risk assessment. Patient examined at the bedside. Patient states she presented to the hospital after not having a bowel movement for 11 days. She has been seen by general surgery and is scheduled to undergo open sigmoid colectomy with colostomy on 11/11/[address] Cedeno. Patient currently denies any chest pain or pressure. She denies any shortness of breath. Apparently, overnight the patient went tachycardic and she was prescribed IV heparin and IV amiodarone and transferred to [facility]. She converted to sinus mechanism and is maintaining sinus mechanism at the time of examination. DIAGNOSTICS: - Telemetry currently reveals sinus mechanism - Laboratory data: WBC 17.7. Hemoglobin 11.9. Platelet count 325. Sodium 139. Potassium 3.9. BUN 16. Creatinine 0.7. TSH 18.3. Free T41.67. - Current home cardiac medications include amiodarone 200 mg daily, metoprolol tartrate 25 mg twice a day, Lipitor 20 mg daily, Eliquis 5 mg twice a day. - Most recent echocardiogram obtained in July 2022 revealed ejection fraction 52%, mild aortic stenosis, mild mitral regurgitation, mild tricuspid regurgit ation 11/09/2023 Patient examined this morning at the bedside. Patient currently denies chest pain or pressure. She denies shortness of breath. She remains in atrial fibrillation with decently controlled ventricular rates. Echocardiogram completed revealing ejection fraction 35 to 40%, mild MR, mild 11/10/2023 Patient examined this morning the bedside. Patient seen up in the chair. Patient denies chest pain or pressure. She denies shortness of breath. Vital signs are stable. She remains in atrial fibrillation with heart rate between [id number]. 11/11/2023 Patient examined this morning at the bedside. Patient currently denies chest pain or pressure. She denies shortness of breath. She remains in atrial fibrillation with controlled ventricular rate. She remains on IV heparin. She is scheduled to undergo surgical intervention today. 11/13/2023 Patient is status post exploratory laparotomy, sigmoid resection, descending colostomy, cholecystectomy, and liver biopsy. Patient examined this morning the bedside. Patient currently denies chest pain or pressure. She denies shortness of breath. She remains in atrial fibrillation with controlled ventricular rate. Her IV Cardizem has been discontinued. 11/14/2023 Patient examined this morning at the bedside. Patient currently denies chest pain or pressure. She denies shortness of breath. She has been resumed back on Eliquis. She remains in atrial fibrillation with controlled ventricular rate. 11/14 Patient has been resumed on Eliquis and continued on Lopressor 25 mg twice daily. Heart rate 107, blood pressure 129/77, pulse ox 97% on room air. Telemetry is atrial fibrillation rate controlled. Repeat blood work reveals WBC 20.1, hemoglobin 10.2. BUN 15 creatinine 0.4. Patient received 1 dose of IV Lasix this morning. Patient was started back on Eliquis on 11/12. Note general surgery has recommended holding until epidural is removed. Epidural has been removed but there is concern the patient may need to have additional surgical intervention done. Patient is on TPN and oral diet. 11/15 Patient is seen today sitting up in a chair. She denies chest pain known palpitations. She remains in atrial fibrillation. Yesterday we resumed her back on Eliquis as there was concern that patient may need surgical intervention. Blood pressure 123/67, heart rate 96, pulse ox 97% on room air. No medication changes made today. 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 Patient has met with oncology this morning. Patient's heart rate remains elevated in the 120s and remains in atrial fibrillation. Patient has been kept on heparin drip in case she requires surgical revision of stoma. Blood pressure 120/79, pulse ox 96% on room air. WBC 26.9, hemoglobin 9.3, BUN 14 creatinine 0.39. Yesterday, metoprolol tartrate was increased to 50 mg twice daily. PHYSICAL EXAM: VITAL SIGNS: Reviewed. GENERAL: Well-developed in no acute distress. HEENT: Head is normocephalic. Pupils are equal, round. Sclerae anicteric. Mucous membranes of the mouth are moist. Neck supple. No JVD or thyromegaly LUNGS: Respirations even and unlabored. Lungs essentially clear to auscultation bilaterally. HEART: Irregular rate and rhythm. S1 and S2 heard. ABDOMEN: Soft. Nondistended. Nontender. EXTREMITIES: Normal range of motion. No clubbing or cyanosis. Peripheral pulses intact. No lower extremity edema NEUROLOGIC: Awake and alert. Oriented x 3. 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 Further recommendations pending patient course Nurse practitioner note has been reviewed by physician. Signing provider agrees with the documented findings, assessment, and plan of care documented by PSYCHOSOCIAL REHABILITATION COUNSELOR as a scribe. Objective - Vital Signs Vital signs: Vital Signs Temp 97.6 F 11/17/23 08:59 Pulse 128 H 11/17/23 09:00 Resp 14 11/17/23 08:59 BP 120/79 11/17/23 08:59 Pulse Ox 96 11/17/23 08:59 FiO2 Intake & Output 11/16/23 11/17/23 11/17/23 18:59 06:59 18:59 Intake Total 915.334 132.163 Output Total 2850 350 175 Balance -1934.666 -350 -42.837 Weight 74 kg Intake: Intake, IV Titration 233.334 132.163 Amount Heparin Sod,Pork in 0.45% 233.334 132.163 NaCl 25,000 unit In 0.45 % NaCl 1 250ml.bag @ 12 UNITS/KG/HR 8.94 mls/hr IV .Q24H [facility] Rx#: [id number] Oral 682 Output: Urine 1800 350 Stool 1050 175 Other: Voiding Method External Catheter External Catheter External Catheter - Labs CBC & Chem 7: 11/17/23 08:24 11/17/23 08:24 Labs: Abnormal Lab Results - Last 24 Hours (Table) 11/16/23 11/16/23 11/16/23 Range/Units 11:45 18:02 23:13 WBC (3.8-10.6) k/uL RBC (3.80-5.40) m/uL Hgb (11.4-16.0) gm/dL MCV (80.0-100.0) fL APTT (22.0-30.0) sec Sodium (137-145) mmol/L Potassium (3.5-5.1) mmol/L Creatinine (0.52-1.04) mg/dL Glucose (74-99) mg/dL POC Glucose (mg/dL) 253 H 249 H 235 H (70-110) mg/dL Calcium (8.4-10.2) mg/dL AST (14-36) U/L ALT (4-34) U/L Total Protein (6.3-8.2) g/dL Albumin (3.5-5.0) g/dL 11/17/23 11/17/23 11/17/23 Range/Units 05:59 08:24 08:24 WBC (3.8-10.6) k/uL RBC (3.80-5.40) m/uL Hgb (11.4-16.0) gm/dL MCV (80.0-100.0) fL APTT 40.4 H (22.0-30.0) sec Sodium 133 L (137-145) mmol/L Potassium 3.4 L (3.5-5.1) mmol/L Creatinine 0.39 L (0.52-1.04) mg/dL Glucose 195 H (74-99) mg/dL POC Glucose (mg/dL) 153 H (70-110) mg/dL Calcium 8.0 L (8.4-10.2) mg/dL AST 89 H (14-36) U/L ALT 80 H (4-34) U/L Total Protein 4.6 L (6.3-8.2) g/dL Albumin 2.2 L (3.5-5.0) g/dL 11/17/23 Range/Units 08:24 WBC 26.9 H (3.8-10.6) k/uL RBC 3.54 L (3.80-5.40) m/uL Hgb 11.3 L (11.4-16.0) gm/dL MCV 103.1 H (80.0-100.0) fL APTT (22.0-30.0) sec Sodium (137-145) mmol/L Potassium (3.5-5.1) mmol/L Creatinine (0.52-1.04) mg/dL Glucose (74-99) mg/dL POC Glucose (mg/dL) (70-110) mg/dL Calcium (8.4-10.2) mg/dL AST (14-36) U/L ALT (4-34) U/L Total Protein (6.3-8.2) g/dL Albumin (3.5-5.0) g/dL
[2023-11-17] MEDS: METOPROLOL TARTRATE 50 MG TAB PO STA (11:26)
[2023-11-17] MEDS: MAGNESIUM SULFATE-D5W PMX 1 GM in DEXTROSE/WATER 1 100ML.BAG IVPB SCH (11:26)
[2023-11-17] MEDS: POTASSIUM CHLORIDE 10 MEQ in WATER FOR INJECTION 1 100ML.BAG IVPB SCH (11:27)
[2023-11-17 12:13] LABS: Glucose,Whole Blood 205 mg/dL (70-110)
[2023-11-17] MEDS: MVI, ADULT NO.4 WITH VIT K 10 ML, TRACE (CONC-1ML/DOSE) 1 ML, CALCIUM GLUCONATE 1 GM, S... IV SCH (12:56)
--- NOTE | 2023-11-17 16:48 | P.PN ---
Subjective Progress Note Date: 11/17/23 CHIEF COMPLAINT: Large bowel obstruction HISTORY OF PRESENT ILLNESS: The patient is a 88-year-old female admitted for large bowel obstruction due to sigmoid mass. She is status post colectomy with descending colostomy, liver biopsy, peritoneal fluid culture, open cholecystectomy. Her ostomy is functioning. Her pain is controlled. She denies any nausea or vomiting. Afebrile. Tachycardic. WBC is up from 19-26.9 potassium was 3.4 liver enzymes mildly elevated. Pathology results reported from the liver biopsy in the sigmoid colectomy metastatic well-differentiated neuroendocrine tumor PHYSICAL EXAM: VITAL SIGNS: Reviewed GENERAL: Well-developed in no acute distress. HEENT: No sclera icterus. Extraocular movements grossly intact. Moist buccal mucosa. Head is atraumatic, normocephalic. Hears conversational speech. No nasal drainage. NECK: Supple without lymphadenopathy. CHEST: Non-labored respirations and equal bilateral excursions. CARDIOVASCULAR: Palpable 2+ radial pulses. ABDOMEN: Prevana wound VAC intact. Stoma is dark. The upper area of the stoma is now starting to be pink. There is stool present in ostomy MUSCULOSKELETAL: No clubbing or cyanosis. NEUROLOGIC: No focal or lateralizing signs. Cranial nerves II through XII grossly intact. PSYCH: Appropriate affect. Alert and oriented to person, place and time. SKIN: Well perfused. Good skin turgor. ASSESSMENT: 1. Abdominal pain with distention 2. Hyponatremia 3. History of breast cancer 4. Large bowel obstruction diverticulosis 5. Diverticulosis diverticulitis 6. Abnormal CT scan for malignancy 7. Leukocytosis 8. Severe hypothyroidism 9. Atrial fibrillation with rapid ventricular response 10. Cholecystitis 11. Large bowel obstruction and small bowel ischemia 12. Elevated LFTs 13. Pathology results reports of metastatic well-differentiated neuroendocrine tumor PLAN: -Continue to monitor stoma. Monitor for sloughing of the mucosa for viability.Due to low flow state and global large bowel and small bowel ischemia, may need revision of ostomy. Will closely monitor. -Due to leukocytosis blood cultures ordered -Continue antibiotics -Await recommendations per oncology service -Currently on IV heparin for anticoagulation -Continue pain management -Encourage patient to increase activity level Physician Excellence Coach note has been reviewed by physician. Signing provider agrees with the documented findings, assessment, and plan of care. Please see additional documentation below CHIEF COMPLAINT: Large bowel obstruction HISTORY OF PRESENT ILLNESS: The patient is a 88-year-old female status post diverting colostomy for large bowel obstruction with liver biopsy and cholecystectomy due to cholecystitis. She is tolerating diet of [place], tomato sauce and bread. She is on TPN. She has been switched from Eliquis to heparin. She is having bowel movements through her ostomy. Patient reports having ostomy teaching for the first time today. REVIEW OF ORGAN SYSTEMS: CARDIOVASCULAR: Has atrial fibrillation with hypertensive heart disease and hyperlipidemia. On chronic blood thinners. GASTROINTESTINAL: Prior diarrhea for colonoscopy August 2022 BREAST: History of breast cancer with lumpectomy. PHYSICAL EXAM: VITALS: Reviewed CONSTITUTIONAL: Well developed and in no acute distress. EYES: Conjuctivae without sclera icterus. Extraocular movements grossly intact. HEAD, EARS, NOSE, THROAT: Moist buccal mucosa. Head is atraumatic, normocephalic. Hears conversational speech. No nasal drainage. RESPIRATORY: Non-labored respirations and equal bilateral excursions. No gross wheezes. CARDIOVASCULAR: Palpable 2+ radial pulses. ABDOMEN: Midline dressing intact. Ostomy with stool and flatus. Mucosa of ostomy sloughing and dark MUSCULOSKELETAL: No clubbing cyanosis or edema SKIN: Warm and well perfused with good skin turgor. NEUROLOGIC: Cranial nerves II through XII grossly intact. No focal or lateralizing signs. PSYCH: Appropriate affect. Alert and oriented to person, place and time. Displays appropriate insight. CLINCAL LABS: Reviewed. WBC trending downward from 24,000-20,000. PATHOLOGY: Positive metastatic adenocarcinoma to the liver from neuroendocrine tumor, colon. Cholecystitis. ASSESSMENT: 1. Abdominal pain with distention 2. Hyponatremia 3. History of breast cancer 4. Large bowel obstruction diverticulosis 5. Diverticulosis diverticulitis 6. Abnormal CT scan for malignancy 7. Leukocytosis 8. Severe hypothyroidism 9. Atrial fibrillation with rapid ventricular response 10. Cholecystitis 11. Large bowel and small bowel ischemia 12. Metastatic adenocarcinoma, neuroendocrine tumor, colon, new 13. Descending colostomy status PLAN: 1. In the presence of pre-existing large and small bowel ischemia, she is high risk for infarction of her descending colostomy with need for revision. Clinically although her ostomy is functioning, ostomy appears dark/necrotic. 2. Continue heparin drip. Do not resume Eliquis 3. Recommend high-protein diet for recovery. 4. Revision of ostomy described. 5. Oncology assessment for new diagnosis of neuroendocrine tumor, metastatic. Objective - Vital Signs Vital signs: Vital Signs Temp 97.7 F 11/17/23 11:25 Pulse 104 H 11/17/23 15:36 Resp 16 11/17/23 15:36 BP 119/69 11/17/23 15:36 Pulse Ox 98 11/17/23 15:36 FiO2 Intake & Output 11/16/23 11/17/23 11/17/23 18:59 06:59 18:59 Intake Total 915.334 368.163 Output Total 2850 350 175 Balance -1934.666 -350 193.163 Weight 74 kg Intake: Intake, IV Titration 233.334 132.163 Amount Heparin Sod,Pork in 0.45% 233.334 132.163 NaCl 25,000 unit In 0.45 % NaCl 1 250ml.bag @ 12 UNITS/KG/HR 8.94 mls/hr IV .Q24H [facility] Rx#: [id number] Oral 682 236 Output: Urine 1800 350 Stool 1050 175 Other: Voiding Method External Catheter External Catheter External Catheter - Labs CBC & Chem 7: 11/17/23 08:24 11/17/23 08:24 Labs: Abnormal Lab Results - Last 24 Hours (Table) 11/16/23 11/16/23 11/17/23 Range/Units 18:02 23:13 05:59 WBC (3.8-10.6) k/uL RBC (3.80-5.40) m/uL Hgb (11.4-16.0) gm/dL MCV (80.0-100.0) fL APTT (22.0-30.0) sec Sodium (137-145) mmol/L Potassium (3.5-5.1) mmol/L Creatinine (0.52-1.04) mg/dL Glucose (74-99) mg/dL POC Glucose (mg/dL) 249 H 235 H 153 H (70-110) mg/dL Calcium (8.4-10.2) mg/dL AST (14-36) U/L ALT (4-34) U/L Total Protein (6.3-8.2) g/dL Albumin (3.5-5.0) g/dL 11/17/23 11/17/23 11/17/23 Range/Units 08:24 08:24 08:24 WBC 26.9 H (3.8-10.6) k/uL RBC 3.54 L (3.80-5.40) m/uL Hgb 11.3 L (11.4-16.0) gm/dL MCV 103.1 H (80.0-100.0) fL APTT 40.4 H (22.0-30.0) sec Sodium 133 L (137-145) mmol/L Potassium 3.4 L (3.5-5.1) mmol/L Creatinine 0.39 L (0.52-1.04) mg/dL Glucose 195 H (74-99) mg/dL POC Glucose (mg/dL) (70-110) mg/dL Calcium 8.0 L (8.4-10.2) mg/dL AST 89 H (14-36) U/L ALT 80 H (4-34) U/L Total Protein 4.6 L (6.3-8.2) g/dL Albumin 2.2 L (3.5-5.0) g/dL 11/17/23 11/17/23 Range/Units 12:12 14:29 WBC (3.8-10.6) k/uL RBC (3.80-5.40) m/uL Hgb (11.4-16.0) gm/dL MCV (80.0-100.0) fL APTT 45.6 H (22.0-30.0) sec Sodium (137-145) mmol/L Potassium (3.5-5.1) mmol/L Creatinine (0.52-1.04) mg/dL Glucose (74-99) mg/dL POC Glucose (mg/dL) 205 H (70-110) mg/dL Calcium (8.4-10.2) mg/dL AST (14-36) U/L ALT (4-34) U/L Total Protein (6.3-8.2) g/dL Albumin (3.5-5.0) g/dL
--- NOTE | 2023-11-17 17:21 | P.PN ---
Subjective Progress Note Date: 11/17/23 Pt reporting she is feeling ok, denies any significant abdominal pain. Afebrile. Continues on IV abx pain. Per surgery due to low flow state and global large bowel and small bowel ischemia, patient may need revision of ostomy. Unfortunately pathology positive for neuroendocrine tumor. Objective - Vital Signs Vital signs: Vital Signs Temp 97.7 F 11/17/23 11:25 Pulse 99 11/17/23 11:25 Resp 14 11/17/23 11:25 BP 120/78 11/17/23 11:25 Pulse Ox 99 11/17/23 11:25 FiO2 Intake & Output 11/16/23 11/17/23 11/17/23 18:59 06:59 18:59 Intake Total 915.334 132.163 Output Total 2850 350 175 Balance -1934.666 -350 -42.837 Weight 74 kg Intake: Intake, IV Titration 233.334 132.163 Amount Heparin Sod,Pork in 0.45% 233.334 132.163 NaCl 25,000 unit In 0.45 % NaCl 1 250ml.bag @ 12 UNITS/KG/HR 8.94 mls/hr IV .Q24H [facility] Rx#: [id number] Oral 682 Output: Urine 1800 350 Stool 1050 175 Other: Voiding Method External Catheter External Catheter External Catheter - Constitutional General appearance: Present: average body habitus, no acute distress - EENT Eyes: Present: anicteric sclerae, EOMI ENT: Present: hearing grossly normal - Respiratory Details: breathing is even and unlabored - Cardiovascular Details: skin warm and dry - Gastrointestinal Gastrointestinal Comment(s): ostomy in situ - Integumentary Integumentary: Absent: cyanotic, jaundiced - Musculoskeletal Musculoskeletal: Present: strength equal bilaterally - Psychiatric Psychiatric: Present: A&O x's 3 - Labs CBC & Chem 7: 11/17/23 08:24 11/17/23 08:24 Labs: Abnormal Lab Results - Last 24 Hours (Table) 11/16/23 11/16/23 11/17/23 Range/Units 18:02 23:13 05:59 WBC (3.8-10.6) k/uL RBC (3.80-5.40) m/uL Hgb (11.4-16.0) gm/dL MCV (80.0-100.0) fL APTT (22.0-30.0) sec Sodium (137-145) mmol/L Potassium (3.5-5.1) mmol/L Creatinine (0.52-1.04) mg/dL Glucose (74-99) mg/dL POC Glucose (mg/dL) 249 H 235 H 153 H (70-110) mg/dL Calcium (8.4-10.2) mg/dL AST (14-36) U/L ALT (4-34) U/L Total Protein (6.3-8.2) g/dL Albumin (3.5-5.0) g/dL 11/17/23 11/17/23 11/17/23 Range/Units 08:24 08:24 08:24 WBC 26.9 H (3.8-10.6) k/uL RBC 3.54 L (3.80-5.40) m/uL Hgb 11.3 L (11.4-16.0) gm/dL MCV 103.1 H (80.0-100.0) fL APTT 40.4 H (22.0-30.0) sec Sodium 133 L (137-145) mmol/L Potassium 3.4 L (3.5-5.1) mmol/L Creatinine 0.39 L (0.52-1.04) mg/dL Glucose 195 H (74-99) mg/dL POC Glucose (mg/dL) (70-110) mg/dL Calcium 8.0 L (8.4-10.2) mg/dL AST 89 H (14-36) U/L ALT 80 H (4-34) U/L Total Protein 4.6 L (6.3-8.2) g/dL Albumin 2.2 L (3.5-5.0) g/dL Assessment and Plan (1) Neuroendocrine cancer Current Visit: Yes Status: Acute Priority: High Code(s): C7A.8 - OTHER MALIGNANT NEUROENDOCRINE TUMORS SNOMED Code(s): 059688442090746 (2) Liver lesion Current Visit: Yes Status: Acute Priority: High Code(s): K76.9 - LIVER DISEASE, UNSPECIFIED SNOMED Code(s): 376446666 (3) Partial bowel obstruction Current Visit: Yes Status: Acute Priority: High Code(s): K56.600 - PARTIAL INTESTINAL OBSTRUCTION, UNSPECIFIED TO CAUSE SNOMED Code(s): 47695155714045755 Plan: Neuroendcrine tumor: -CT abdomen pelvis revealed partial large bowel obstruction of sigmoid colon secondary to colitis versus mass. Indeterminate enhancing lesions within the liver with sclerotic lesion within the left proximal femur. Abnormal soft tissue within the mesentery near the cecum. MRI liver showed multiple liver lesions concerning for metastatic disease. -S/p sigmoid colectomy and cholecystectomy. Peritoneal fluid cytology negative for malignancy. Liver and colon biopsies positive for metastatic well- differentiated neuroendocrine tumor -Reviewed results with patient today including goals of care and treatment options. Treatment would be on hold for 4-6 weeks s/p surgery to allow adequate healing time -Will obtain dotatate PET scan outpt -Serotonin, Chromogranin, and 24 hr urine HIAA ordered Hx breast cancer, remote -Breast tumor markers WNL attests: I have seen and examined pt, performed H&P, developed impression and plan of care. Discussed with dictator. Agree with documentation, dictated as a scribe.
--- NOTE | 2023-11-17 17:39 | P.PN ---
Subjective Progress Note Date: 11/17/23 Subjective: Patient seen and examined at bedside. No acute events overnight. She is s/p open sigmoid colectomy with colostomy and cholecystectomy. Her pain levels are adequate. She reports swelling in hands and feet have improved. Having adequate output from ostomy. Slightly tachycardic this morning. Pertinent positives and negatives as discussed above, a complete review of systems was performed and all other systems are negative. Vitals: Signs Reviewed Physical Exam: General: nontoxic, no distress, appears at stated age Derm: warm, dry, intact Head: atraumatic, normocephalic, symmetric Eyes: EOMI, no lid lag, anicteric sclera Mouth: no lip lesion, mucus membranes moist Cardiovascular: S1 S2 reg, no murmur, rubs, or gallops Lungs: CTA bilateral, no rhonchi, no rales, no accessory muscle use Abdominal: distended, tender to palpataion, no appreciable organomegaly, ostomy in place, stoma slightly dusky Extremities: no gross muscle atrophy, no edema, no contractures Neuro: Alert, Oriented, CNII-XII grossly intact Psych: well appearing, appropriate affect Data Received Today: Pertinent Labs: WBC 26.9, hemoglobin 11.3, platelet 442, sodium 133, potassium 3.4, creatinine 0.39, blood sugars range between 1 53-2 05 Imaging: No new imaging Assessment and Plan: 88-year-old female with past medical history of IBS, hypothyroid, hypertension, breast cancer, and A-fib presents with abdominal pain associated with constipation. S/p sigmoid colectomy with costomy and cholecystectomy Partial large bowel obstruction due to sigmoid mass s/p sigmoid colectomy with costomy and cholecystectomy Metastatic well-differentiated neuroendocrine tumor Postop day 5. IV antibiotics as below. Follow pathology report (peritoneal ascites, gall bladder, liver biopsy, sigmoid mass). TPN for nutrition started 11/08. Low fiber diet started 11/12. Morphine 2 mg ivp q4h prn for severe pain, monitor for sedation Discussed management with general surgery [employer]. Will closely monitor stoma, may need revision of ostomy Oncology note reviewed, management as below MRI Liver results: Multiple liver lesions concerning for metastatic disease possibly gastrointestinal in origin given prior CT 11/05/2023. Finding could be secondary to mesenteric mass with tethering multiple loops of bowel Pathology report: Liver and colon biopsies positive for metastatic well- differentiated neuroendocrine tumor. Treatment on hold for 4 to 6 weeks status post surgery. Peritoneal fluid cytology negative for malignancy Will obtain PET scan outpatient Serotonin, chromogranin, and 24-hour urine HIAA ordered Atrial fibrillation w/ rvr Hypomagnesemia Monitoring on telemetry Cardiology note reviewed. Metoprolol increased to 100 mg p.o. twice daily for rate control. continue amiodarone 200 mg daily. Will monitor heart rate. Eliquis discontinued, currently on heparin drip, monitor APTT, daily CBC Magnesium sulfate IV 3 g Keep K > 4, magnesium > 2 Will monitor potassium and magnesium. Follow-up BMP Hypoalbuminemia Anasarca Heart failure with reduced ejection fraction 35 to 40%, not in exacerbation Albumin 2.0, total protein 4.2 Likely due to malnutrition. Patient on TPN Will encourage to increase oral intake Patient likely over diuresed yesterday, will hold further diuretics Results on echocardiogram doppler showed left ventricular ejection fraction 35 to 40%. Mildly increased left ventricular wall thickness Mild mitral regurgitation. Mild aortic stenosis. No pericardial effusion. Leukocytosis, neutrophilic predominance Infectious versus reactive ID discontinued, IV ceftriaxone 2gm. Was put on Zosyn 4.375g IV TID on 11/09 by ID., Also started on oral Flagyl 500 3 times daily Peritoneal cultures: anaerobic culture: bacteroides thetaiotaomicron beta- lactamase postive; aerobic culture: Enterococcus faecium Eraxis discontinued, as no indication for antifungals at the moment Metabolic acidosis with high anion gap, resolved Hyperglycemia Hypoglycemia, resolved continue Levemir 15 unit SQ daily, for better glycemic control On insulin subcu sliding scale Will continue to monitor for hypoglycemia - A1c 6.0, prediabetic, possibly reactive Hypokalemia Patient unable to swallow oral tablets K 3.4. 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 Discussed with the resident and agree with the residents finding and plan as documented in the resident's note. Changes highlighted in blue font. Objective - Vital Signs Vital signs: Vital Signs Temp 97.9 F 11/17/23 04:55 Pulse 113 H 11/17/23 04:55 Resp 14 11/17/23 04:55 BP 130/74 11/17/23 04:55 Pulse Ox 96 11/17/23 04:55 FiO2 Intake & Output 11/16/23 11/16/23 11/17/23 06:59 18:59 06:59 Intake Total 999.267 915.334 Output Total 1600 2850 350 Balance -600.733 -1934.666 -350 Weight 74.1 kg 74 kg Intake: Intake, IV Titration 999.267 233.334 Amount Heparin Sod,Pork in 0.45% 233.334 NaCl 25,000 unit In 0.45 % NaCl 1 250ml.bag @ 12 UNITS/KG/HR 8.94 mls/hr IV .Q24H [facility] Rx#: [id number] Mvi, Adult No.4 with Vit 999.267 K 10 ml Trace (Conc-1Ml/ Dose) 1 ml Calcium Gluconate 1 gm Sodium Acetate 50 meq Magnesium Sulfate gm 0.5 gm Potassium Phosphate 15 mmol In Amino Acids 5 %/ Dextrose 20 % 1,000 ml @ 52 mls/hr IV .[id number] [facility] Rx#:[id number] Oral 682 Output: Urine 1600 1800 350 Stool 1050 Other: Voiding Method External Catheter External Catheter External Catheter # Bowel Movements 1 - Labs CBC & Chem 7: 11/17/23 08:24 11/17/23 08:24 Labs: Abnormal Lab Results - Last 24 Hours (Table) 11/16/23 11/16/23 11/16/23 Range/Units 05:52 06:21 06:21 WBC 19.7 H (3.8-10.6) k/uL RBC 3.19 L (3.80-5.40) m/uL Hgb 10.2 L (11.4-16.0) gm/dL Hct 32.5 L (34.0-46.0) % MCV 101.8 H (80.0-100.0) fL Neutrophils # 13.0 H (1.3-7.7) k/uL Monocytes # 1.1 H (0-1.0) k/uL APTT (22.0-30.0) sec Sodium 133 L (137-145) mmol/L Potassium 3.0 L (3.5-5.1) mmol/L Creatinine 0.39 L (0.52-1.04) mg/dL Glucose 215 H (74-99) mg/dL POC Glucose (mg/dL) 201 H (70-110) mg/dL Calcium 7.6 L (8.4-10.2) mg/dL AST 73 H (14-36) U/L ALT 48 H (4-34) U/L Total Protein 4.2 L (6.3-8.2) g/dL Albumin 2.0 L (3.5-5.0) g/dL 11/16/23 11/16/23 11/16/23 Range/Units 06:21 11:45 18:02 WBC (3.8-10.6) k/uL RBC (3.80-5.40) m/uL Hgb (11.4-16.0) gm/dL Hct (34.0-46.0) % MCV (80.0-100.0) fL Neutrophils # (1.3-7.7) k/uL Monocytes # (0-1.0) k/uL APTT 51.3 H (22.0-30.0) sec Sodium (137-145) mmol/L Potassium (3.5-5.1) mmol/L Creatinine (0.52-1.04) mg/dL Glucose (74-99) mg/dL POC Glucose (mg/dL) 253 H 249 H (70-110) mg/dL Calcium (8.4-10.2) mg/dL AST (14-36) U/L ALT (4-34) U/L Total Protein (6.3-8.2) g/dL Albumin (3.5-5.0) g/dL 11/16/23 Range/Units 23:13 WBC (3.8-10.6) k/uL RBC (3.80-5.40) m/uL Hgb (11.4-16.0) gm/dL Hct (34.0-46.0) % MCV (80.0-100.0) fL Neutrophils # (1.3-7.7) k/uL Monocytes # (0-1.0) k/uL APTT (22.0-30.0) sec Sodium (137-145) mmol/L Potassium (3.5-5.1) mmol/L Creatinine (0.52-1.04) mg/dL Glucose (74-99) mg/dL POC Glucose (mg/dL) 235 H (70-110) mg/dL Calcium (8.4-10.2) mg/dL AST (14-36) U/L ALT (4-34) U/L Total Protein (6.3-8.2) g/dL Albumin (3.5-5.0) g/dL Microbiology - Last 24 Hours (Table) 11/10/23 17:41 Blood Culture - Final Blood
[2023-11-17 18:26] LABS: Glucose,Whole Blood 189 mg/dL (70-110)
[2023-11-17] MEDS: HYDROmorphone 1 MG/ML 1 ML SYRINGE IVP PRN (18:39)
[2023-11-17] MEDS: METOPROLOL TARTRATE 50 MG TAB PO SCH (20:30)
[2023-11-17 23:24] LABS: Glucose,Whole Blood 152 mg/dL (70-110)
[2023-11-18 05:59] LABS: Glucose,Whole Blood 154 mg/dL (70-110)
[2023-11-18 07:48] LABS: HCT 32.5 % (34.0-46.0); HGB 10.5 gm/dL (11.4-16.0); MCH 32.2 pg (25.0-35.0); MCHC 32.3 g/dL (31.0-37.0); MCV 99.7 fL (80.0-100.0); Mean Platelet Volume 8.4; Platelet Count 400 k/uL (150-450); RBC 3.26 m/uL (3.80-5.40); RDW 13.8 % (11.5-15.5); WBC 31.9 k/uL (3.8-10.6)
[2023-11-18 08:19] LABS: ALT 57 U/L (4-34); AST 67 U/L (14-36); African American GFR (CKD) >90 (>60 ml/min/1.73 sqM); Albumin 2.2 g/dL (3.5-5.0); Alkaline Phosphatase 105 U/L (38-126); Anion Gap 4 mmol/L; Blood Urea Nitrogen 14 mg/dL (7-17); Calcium 7.9 mg/dL (8.4-10.2); Carbon Dioxide 25 mmol/L (22-30); Chloride 101 mmol/L (98-107); Glucose 147 mg/dL (74-99); Magnesium 2.1 mg/dL (1.6-2.3); Non-African American GFR(CKD) >90 (>60 ml/min/1.73 sqM); Phosphorus 3.2 mg/dL (2.5-4.5); Potassium 3.9 mmol/L (3.5-5.1); Sodium 130 mmol/L (137-145); Total Bilirubin 0.3 mg/dL (0.2-1.3); Total Protein 4.5 g/dL (6.3-8.2)
--- NOTE | 2023-11-18 08:21 | P.PN ---
Subjective Progress Note Date: 11/17/23 Principal diagnosis: Reason for follow-up is leukocytosis Patient is a 88-year-old female with a past medical history significant for hypertension hyperlipidemia atrial fibrillation history of breast cancer chronic back pain presenting to the hospital for evaluation ab dominal pain and constipation has been diagnosed with a large bowel obstruction and concern for possible liver mets did have persistent worsening white count prompting this consultation.Patient is status post expiratory laparotomy with sigmoid resection for large bowel obstruction and descending colostomy open cholecystectomy, peritoneal large liver biopsy procedure completed on 11/12/2023 On today's evaluation that is 11/17/2023, the patient continues to be afebrile, the patient is on room air and breathing comfortably, the Pt denies having any chest pain or cough, the patient abdominal pain has decreased intensity controlled with pain medication no nausea vomiting did have output in the col ostomy. Patient white count is 26.9 creatinine 0.39 Objective - Vital Signs Vital signs: Vital Signs Temp 97.7 F 11/17/23 11:25 Pulse 99 11/17/23 11:25 Resp 14 11/17/23 11:25 BP 120/78 11/17/23 11:25 Pulse Ox 99 11/17/23 11:25 FiO2 Intake & Output 11/16/23 11/17/23 11/17/23 18:59 06:59 18:59 Intake Total 915.334 132.163 Output Total 2850 350 175 Balance -1934.666 -350 -42.837 Weight 74 kg Intake: Intake, IV Titration 233.334 132.163 Amount Heparin Sod,Pork in 0.45% 233.334 132.163 NaCl 25,000 unit In 0.45 % NaCl 1 250ml.bag @ 12 UNITS/KG/HR 8.94 mls/hr IV .Q24H [facility] Rx#: [id number] Oral 682 Output: Urine 1800 350 Stool 1050 175 Other: Voiding Method External Catheter External Catheter External Catheter - Exam GENERAL DESCRIPTION: An elderly female lying in bed in no distress RESPIRATORY SYSTEM: Unlabored breathing , decreased breath sounds at bases HEART: S1 S2 regular rate and rhythm , ABDOMEN: Soft , mild distention EXTREMITIES: No edema feet - Labs CBC & Chem 7: 11/18/23 07:30 11/18/23 07:30 Labs: Abnormal Lab Results - Last 24 Hours (Table) 11/16/23 11/16/23 11/17/23 Range/Units 18:02 23:13 05:59 WBC (3.8-10.6) k/uL RBC (3.80-5.40) m/uL Hgb (11.4-16.0) gm/dL MCV (80.0-100.0) fL APTT (22.0-30.0) sec Sodium (137-145) mmol/L Potassium (3.5-5.1) mmol/L Creatinine (0.52-1.04) mg/dL Glucose (74-99) mg/dL POC Glucose (mg/dL) 249 H 235 H 153 H (70-110) mg/dL Calcium (8.4-10.2) mg/dL AST (14-36) U/L ALT (4-34) U/L Total Protein (6.3-8.2) g/dL Albumin (3.5-5.0) g/dL 11/17/23 11/17/23 11/17/23 Range/Units 08:24 08:24 08:24 WBC 26.9 H (3.8-10.6) k/uL RBC 3.54 L (3.80-5.40) m/uL Hgb 11.3 L (11.4-16.0) gm/dL MCV 103.1 H (80.0-100.0) fL APTT 40.4 H (22.0-30.0) sec Sodium 133 L (137-145) mmol/L Potassium 3.4 L (3.5-5.1) mmol/L Creatinine 0.39 L (0.52-1.04) mg/dL Glucose 195 H (74-99) mg/dL POC Glucose (mg/dL) (70-110) mg/dL Calcium 8.0 L (8.4-10.2) mg/dL AST 89 H (14-36) U/L ALT 80 H (4-34) U/L Total Protein 4.6 L (6.3-8.2) g/dL Albumin 2.2 L (3.5-5.0) g/dL 11/17/23 Range/Units 12:12 WBC (3.8-10.6) k/uL RBC (3.80-5.40) m/uL Hgb (11.4-16.0) gm/dL MCV (80.0-100.0) fL APTT (22.0-30.0) sec Sodium (137-145) mmol/L Potassium (3.5-5.1) mmol/L Creatinine (0.52-1.04) mg/dL Glucose (74-99) mg/dL POC Glucose (mg/dL) 205 H (70-110) mg/dL Calcium (8.4-10.2) mg/dL AST (14-36) U/L ALT (4-34) U/L Total Protein (6.3-8.2) g/dL Albumin (3.5-5.0) g/dL Assessment and Plan (1) Leukocytosis Current Visit: Yes Status: Acute Code(s): D72.829 - ELEVATED WHITE BLOOD CELL COUNT, UNSPECIFIED SNOMED Code(s): 888967072 (2) Partial bowel obstruction Current Visit: Yes Status: Acute Priority: High Code(s): K56.600 - PARTIAL INTESTINAL OBSTRUCTION, UNSPECIFIED TO CAUSE SNOMED Code(s): 02477931308596301 Plan: 1patient with leukocytosis which is likely multifactorial in this patient admitted to hospital with abdominal pain and constipation has been diagnosed with a large bowel obstruction with a question of possible mass versus colitis mass may be favored as the patient did have multiple lesion in the liver concerning for metastatic disease with worsening of the white count despite being on Rocephin and Flagyl we need to broaden her antibiotic coverage 2-blood cultures has been repeated currently pending 3-patient is status post extensive abdominal surgery, abdominal cultures now growing Enterococcus faecalis penicillin sensitive and Bacteroides species 4patient to continue with Unasyn and Flagyl for better bacteroids coverage and patient noted to have slight worsening of the white count if any further worsening we will have her restart her Eraxis Dictation was produced using [employer] dictation software. please excuse any gram matical, word or spelling errors. Time with Patient: Less than 30
[2023-11-18 08:33] LABS: Lymphocytes # (M) 6.38 k/uL (1.0-4.8); Monocytes # (M) 0.64 k/uL (0-1.0); Neutrophils # (M) 24.88 k/uL (1.3-7.7); Neutrophils % (M) 78 %; Nucleated Red Blood Cells 0 /100 WBC (0-0); Total Cells Counted 100
[2023-11-18] MEDS: ANIDULAFUNGIN 100 MG in SODIUM CHLORIDE 0.9% 100 ML IVPB SCH (09:41)
[2023-11-18] MEDS: HEPARIN SODIUM 1,000 UN/ML (10ML VL) IV PRN (09:43)
[2023-11-18] MEDS: FUROSEMIDE 10 MG/ML 4 ML VIAL IV SCH (10:54)
--- NOTE | 2023-11-18 11:15 | P.PN ---
Subjective Progress Note Date: 11/18/23 HISTORY OF PRESENT ILLNESS: This is a 88-year-old female with a past medical history significant for atrial fibrillation, SVT, hypertension, hyperlipidemia, and hypothyroidism. Patient follows in the office with Dr. Holloway. We have been asked to see the patient in consultation for cardiac risk assessment. Patient examined at the bedside. Patient states she presented to the hospital after not having a bowel movement for 11 days. She has been seen by general surgery and is scheduled to undergo open sigmoid colectomy with colostomy on 11/11/[address] Cedeno. Patient currently denies any chest pain or pressure. She denies any shortness of breath. Apparently, overnight the patient went tachycardic and she was prescribed IV heparin and IV amiodarone and transferred to [facility]. She converted to sinus mechanism and is maintaining sinus mechanism at the time of examination. DIAGNOSTICS: - Telemetry currently reveals sinus mechanism - Laboratory data: WBC 17.7. Hemoglobin 11.9. Platelet count 325. Sodium 139. Potassium 3.9. BUN 16. Creatinine 0.7. TSH 18.3. Free T41.67. - Current home cardiac medications include amiodarone 200 mg daily, metoprolol tartrate 25 mg twice a day, Lipitor 20 mg daily, Eliquis 5 mg twice a day. - Most recent echocardiogram obtained in July 2022 revealed ejection fraction 52%, mild aortic stenosis, mild mitral regurgitation, mild tricuspid regurgit ation 11/09/2023 Patient examined this morning at the bedside. Patient currently denies chest pain or pressure. She denies shortness of breath. She remains in atrial fibrillation with decently controlled ventricular rates. Echocardiogram completed revealing ejection fraction 35 to 40%, mild MR, mild 11/10/2023 Patient examined this morning the bedside. Patient seen up in the chair. Patient denies chest pain or pressure. She denies shortness of breath. Vital signs are stable. She remains in atrial fibrillation with heart rate between [id number]. 11/11/2023 Patient examined this morning at the bedside. Patient currently denies chest pain or pressure. She denies shortness of breath. She remains in atrial fibrillation with controlled ventricular rate. She remains on IV heparin. She is scheduled to undergo surgical intervention today. 11/13/2023 Patient is status post exploratory laparotomy, sigmoid resection, descending colostomy, cholecystectomy, and liver biopsy. Patient examined this morning the bedside. Patient currently denies chest pain or pressure. She denies shortness of breath. She remains in atrial fibrillation with controlled ventricular rate. Her IV Cardizem has been discontinued. 11/14/2023 Patient examined this morning at the bedside. Patient currently denies chest pain or pressure. She denies shortness of breath. She has been resumed back on Eliquis. She remains in atrial fibrillation with controlled ventricular rate. 11/14 Patient has been resumed on Eliquis and continued on Lopressor 25 mg twice daily. Heart rate 107, blood pressure 129/77, pulse ox 97% on room air. Telemetry is atrial fibrillation rate controlled. Repeat blood work reveals WBC 20.1, hemoglobin 10.2. BUN 15 creatinine 0.4. Patient received 1 dose of IV Lasix this morning. Patient was started back on Eliquis on 11/12. Note general surgery has recommended holding until epidural is removed. Epidural has been removed but there is concern the patient may need to have additional surgical intervention done. Patient is on TPN and oral diet. 11/15 Patient is seen today sitting up in a chair. She denies chest pain known palpitations. She remains in atrial fibrillation. Yesterday we resumed her back on Eliquis as there was concern that patient may need surgical intervention. Blood pressure 123/67, heart rate 96, pulse ox 97% on room air. No medication changes made today. 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 Patient has met with oncology this morning. Patient's heart rate remains elevated in the 120s and remains in atrial fibrillation. Patient has been kept on heparin drip in case she requires surgical revision of stoma. Blood pressure 120/79, pulse ox 96% on room air. WBC 26.9, hemoglobin 9.3, BUN 14 creatinine 0.39. Yesterday, metoprolol tartrate was increased to 50 mg twice daily. 11/17 Patient remains in atrial fibrillation with heart rates below 120s. She is on heparin drip and maintained on Lopressor 100 mg twice daily which was increased yesterday. Blood pressure 109/71, pulse ox 95% on room air. Repeat blood work reveals WBC 31.9, hemoglobin 10.5. Creatinine 0.38. PHYSICAL EXAM: VITAL SIGNS: Reviewed. GENERAL: Well-developed in no acute distress. HEENT: Head is normocephalic. Pupils are equal, round. Sclerae anicteric. Mucous membranes of the mouth are moist. Neck supple. No JVD or thyromegaly LUNGS: Respirations even and unlabored. Lungs essentially clear to auscultation bilaterally. HEART: Irregular rate and rhythm. S1 and S2 heard. ABDOMEN: Soft. Nondistended. Nontender. EXTREMITIES: Normal range of motion. No clubbing or cyanosis. Peripheral pulses intact. No lower extremity edema NEUROLOGIC: Awake and alert. Oriented x 3. ASSESSMENT: Bowel obstruction, status post exploratory laparotomy, sigmoid resection, descending colostomy, cholecystectomy, and liver biopsy Multiple hepatic lesions, status post biopsy in OR Cholecystitis s/p cholecystectomy, 11/12/2023 Paroxysmal atrial fibrillation History of cardioversion, 2022 Hypertension Hyperlipidemia History of paroxysmal SVT Hypothyroidism New onset cardiomyopathy, 35 to 40%, ischemic versus nonischemic PLAN: Continue postoperative management per general surgery Continue current cardiac medications amiodarone 200 mg daily, atorvastatin 20 mg daily, metoprolol tartrate 100 mg twice daily Continue current medications as heart rate is acceptable as long as it is under 120 bpm. Continue heparin drip as patient may require further surgical intervention. Further recommendations pending patient course Nurse practitioner note has been reviewed by physician. Signing provider agrees with the documented findings, assessment, and plan of care documented by [employer] as a scribe. Objective - Vital Signs Vital signs: Vital Signs Temp 98.2 F 11/18/23 09:17 Pulse 118 H 11/18/23 09:17 Resp 18 11/18/23 09:17 BP 109/71 11/18/23 09:17 Pulse Ox 95 11/18/23 09:17 FiO2 Intake & Output 11/17/23 11/18/23 11/18/23 18:59 06:59 18:59 Intake Total 705.857 500.015 Output Total 325 325 Balance 380.857 -325 500.015 Weight 79.8 kg Intake: Intake, IV Titration 229.857 158.015 Amount Heparin Sod,Pork in 0.45% 229.857 158.015 NaCl 25,000 unit In 0.45 % NaCl 1 250ml.bag @ 12 UNITS/KG/HR 8.94 mls/hr IV .Q24H [facility] Rx#: [id number] Oral 476 342 Output: Urine 200 Stool 325 125 Other: Voiding Method External Catheter External Catheter - Labs CBC & Chem 7: 11/18/23 07:30 11/18/23 07:30 Labs: Abnormal Lab Results - Last 24 Hours (Table) 11/17/23 11/17/23 11/17/23 Range/Units 12:12 14:29 18:19 WBC (3.8-10.6) k/uL RBC (3.80-5.40) m/uL Hgb (11.4-16.0) gm/dL Hct (34.0-46.0) % Neutrophils # (Manual) (1.3-7.7) k/uL Lymphocytes # (Manual) (1.0-4.8) k/uL APTT 45.6 H (22.0-30.0) sec Sodium (137-145) mmol/L Creatinine (0.52-1.04) mg/dL Glucose (74-99) mg/dL POC Glucose (mg/dL) 205 H 189 H (70-110) mg/dL Calcium (8.4-10.2) mg/dL AST (14-36) U/L ALT (4-34) U/L Total Protein (6.3-8.2) g/dL Albumin (3.5-5.0) g/dL 11/17/23 11/18/23 11/18/23 Range/Units 23:23 05:58 07:30 WBC (3.8-10.6) k/uL RBC (3.80-5.40) m/uL Hgb (11.4-16.0) gm/dL Hct (34.0-46.0) % Neutrophils # (Manual) (1.3-7.7) k/uL Lymphocytes # (Manual) (1.0-4.8) k/uL APTT (22.0-30.0) sec Sodium 130 L (137-145) mmol/L Creatinine 0.38 L (0.52-1.04) mg/dL Glucose 147 H (74-99) mg/dL POC Glucose (mg/dL) 152 H 154 H (70-110) mg/dL Calcium 7.9 L (8.4-10.2) mg/dL AST 67 H (14-36) U/L ALT 57 H (4-34) U/L Total Protein 4.5 L (6.3-8.2) g/dL Albumin 2.2 L (3.5-5.0) g/dL 11/18/23 11/18/23 Range/Units 07:30 07:30 WBC 31.9 H (3.8-10.6) k/uL RBC 3.26 L (3.80-5.40) m/uL Hgb 10.5 L (11.4-16.0) gm/dL Hct 32.5 L (34.0-46.0) % Neutrophils # (Manual) 24.88 H (1.3-7.7) k/uL Lymphocytes # (Manual) 6.38 H (1.0-4.8) k/uL APTT 41.3 H (22.0-30.0) sec Sodium (137-145) mmol/L Creatinine (0.52-1.04) mg/dL Glucose (74-99) mg/dL POC Glucose (mg/dL) (70-110) mg/dL Calcium (8.4-10.2) mg/dL AST (14-36) U/L ALT (4-34) U/L Total Protein (6.3-8.2) g/dL Albumin (3.5-5.0) g/dL
[2023-11-18 11:45] LABS: Glucose,Whole Blood 173 mg/dL (70-110)
--- NOTE | 2023-11-18 12:31 | P.PN ---
Subjective Progress Note Date: 11/18/23 Principal diagnosis: Reason for follow-up is leukocytosis Patient is a 88-year-old female with a past medical history significant for hypertension hyperlipidemia atrial fibrillation history of breast cancer chronic back pain presenting to the hospital for evaluation ab dominal pain and constipation has been diagnosed with a large bowel obstruction and concern for possible liver mets did have persistent worsening white count prompting this consultation.Patient is status post expiratory laparotomy with sigmoid resection for large bowel obstruction and descending colostomy open cholecystectomy, peritoneal large liver biopsy procedure completed on 11/12/2023 On today's evaluation that is 11/18/2023, Patient is afebrile patient is currently on room air and denies having any shortness of breath, the patient denies any chest pain or cough, the patient complaining of some nausea and abdominal discomfort and complaining of swelling throughout her body. Patient white count is up to 31.9 creatinine 0.38 Objective - Vital Signs Vital signs: Vital Signs Temp 98.2 F 11/18/23 09:17 Pulse 118 H 11/18/23 09:17 Resp 18 11/18/23 09:17 BP 109/71 11/18/23 09:17 Pulse Ox 95 11/18/23 09:17 FiO2 Intake & Output 11/17/23 11/18/23 11/18/23 18:59 06:59 18:59 Intake Total 433.743 3613.015 Output Total 325 325 200 Balance 380.857 -325 1369.015 Weight 79.8 kg Intake: Intake, IV Titration 713.974 4934.015 Amount Heparin Sod,Pork in 0.45% 229.857 158.015 NaCl 25,000 unit In 0.45 % NaCl 1 250ml.bag @ 12 UNITS/KG/HR 8.94 mls/hr IV .Q24H [facility] Rx#: [id number] Mvi, Adult No.4 with Vit 1069 K 10 ml Trace (Conc-1Ml/ Dose) 1 ml Calcium Gluconate 1 gm Sodium Acetate 70 meq Magnesium Sulfate gm 0.5 gm Potassium Phosphate 21 mmol Potassium Chloride 10 meq In Amino Acids 5 % /Dextrose 20 % 1,000 ml @ 52 mls/hr IV .[id number] [facility] Rx#:[id number] Oral 476 342 Output: Urine 200 Stool 325 125 200 Other: Voiding Method External Catheter External Catheter - Exam GENERAL DESCRIPTION: An elderly female lying in bed in no distress RESPIRATORY SYSTEM: Unlabored breathing , decreased breath sounds at bases HEART: S1 S2 regular rate and rhythm , ABDOMEN: Soft , mild distention EXTREMITIES: No edema feet - Labs CBC & Chem 7: 11/18/23 07:30 11/18/23 07:30 Labs: Abnormal Lab Results - Last 24 Hours (Table) 11/17/23 11/17/23 11/17/23 Range/Units 14:29 18:19 23:23 WBC (3.8-10.6) k/uL RBC (3.80-5.40) m/uL Hgb (11.4-16.0) gm/dL Hct (34.0-46.0) % Neutrophils # (Manual) (1.3-7.7) k/uL Lymphocytes # (Manual) (1.0-4.8) k/uL APTT 45.6 H (22.0-30.0) sec Sodium (137-145) mmol/L Creatinine (0.52-1.04) mg/dL Glucose (74-99) mg/dL POC Glucose (mg/dL) 189 H 152 H (70-110) mg/dL Calcium (8.4-10.2) mg/dL AST (14-36) U/L ALT (4-34) U/L Total Protein (6.3-8.2) g/dL Albumin (3.5-5.0) g/dL 11/18/23 11/18/23 11/18/23 Range/Units 05:58 07:30 07:30 WBC (3.8-10.6) k/uL RBC (3.80-5.40) m/uL Hgb (11.4-16.0) gm/dL Hct (34.0-46.0) % Neutrophils # (Manual) (1.3-7.7) k/uL Lymphocytes # (Manual) (1.0-4.8) k/uL APTT 41.3 H (22.0-30.0) sec Sodium 130 L (137-145) mmol/L Creatinine 0.38 L (0.52-1.04) mg/dL Glucose 147 H (74-99) mg/dL POC Glucose (mg/dL) 154 H (70-110) mg/dL Calcium 7.9 L (8.4-10.2) mg/dL AST 67 H (14-36) U/L ALT 57 H (4-34) U/L Total Protein 4.5 L (6.3-8.2) g/dL Albumin 2.2 L (3.5-5.0) g/dL 11/18/23 11/18/23 Range/Units 07:30 11:44 WBC 31.9 H (3.8-10.6) k/uL RBC 3.26 L (3.80-5.40) m/uL Hgb 10.5 L (11.4-16.0) gm/dL Hct 32.5 L (34.0-46.0) % Neutrophils # (Manual) 24.88 H (1.3-7.7) k/uL Lymphocytes # (Manual) 6.38 H (1.0-4.8) k/uL APTT (22.0-30.0) sec Sodium (137-145) mmol/L Creatinine (0.52-1.04) mg/dL Glucose (74-99) mg/dL POC Glucose (mg/dL) 173 H (70-110) mg/dL Calcium (8.4-10.2) mg/dL AST (14-36) U/L ALT (4-34) U/L Total Protein (6.3-8.2) g/dL Albumin (3.5-5.0) g/dL Assessment and Plan (1) Leukocytosis Current Visit: Yes Status: Acute Code(s): D72.829 - ELEVATED WHITE BLOOD CELL COUNT, UNSPECIFIED SNOMED Code(s): 694657310 (2) Partial bowel obstruction Current Visit: Yes Status: Acute Priority: High Code(s): K56.600 - PARTIAL INTESTINAL OBSTRUCTION, UNSPECIFIED TO CAUSE SNOMED Code(s): 79764631081666401 Plan: 1patient with leukocytosis which is likely multifactorial in this patient admitted to hospital with abdominal pain and constipation has been diagnosed with a large bowel obstruction with a question of possible mass versus colitis mass may be favored as the patient did have multiple lesion in the liver concerning for metastatic disease with worsening of the white count despite be ing on Rocephin and Flagyl we need to broaden her antibiotic coverage 2-blood cultures has been repeated currently pending 3-patient is status post extensive abdominal surgery, abdominal cultures now growing Enterococcus faecalis penicillin sensitive and Bacteroides species 4patient did have the worsening of the white count was up to 31,000, patient to continue with Unasyn and Flagyl we will restart her Eraxis repeat a CBC with a.m. lab Daughter at the bedside questions were answered Dictation was produced using [employer] dictation software. please excuse any grammatical, word or spelling errors. Time with Patient: Less than 30
[2023-11-18] MEDS: IOPAMIDOL CONTRAST (ORAL USE) VIAL PO PRN (14:18)
--- NOTE | 2023-11-18 15:07 | P.PN ---
Subjective Progress Note Date: 11/18/23 Subjective: Patient seen and examined at bedside. No acute events overnight. She is s/p open sigmoid colectomy with colostomy and cholecystectomy. Her pain levels are adequate. Still reports mild swelling in her hands and feet. Having adequate output from ostomy, appears necrotic. Slightly tachycardic this morning. Pertinent positives and negatives as discussed above, a complete review of systems was performed and all other systems are negative. Vitals: Signs Reviewed Physical Exam: General: nontoxic, no distress, appears at stated age Derm: warm, dry, intact Head: atraumatic, normocephalic, symmetric Eyes: EOMI, no lid lag, anicteric sclera Mouth: no lip lesion, mucus membranes moist Cardiovascular: S1 S2 reg, no murmur, rubs, or gallops Lungs: CTA bilateral, no rhonchi, no rales, no accessory muscle use Abdominal: distended, tender to palpataion, no appreciable organomegaly, ostomy in place, stoma slightly dusky, necrotic Extremities: no gross muscle atrophy, no edema, no contractures Neuro: Alert, Oriented, CNII-XII grossly intact Psych: well appearing, appropriate affect Data Received Today: Pertinent Labs: WBC 31.9, hemoglobin 10.5, platelet 400, sodium 130, potassium 3.9, creatinine 0.38, glucose range 154-173. APTT 41.3 Imaging: No new imaging Assessment and Plan: 88-year-old female with past medical history of IBS, hypothyroid, hypertension, breast cancer, and A-fib presents with abdominal pain associated with constipation. S/p sigmoid colectomy with costomy and cholecystectomy Partial large bowel obstruction due to sigmoid mass s/p sigmoid colectomy with costomy and cholecystectomy Metastatic well-differentiated neuroendocrine tumor Postop day 6. IV antibiotics as below. Follow pathology report (peritoneal ascites, gall bladder, liver biopsy, sigmoid mass). TPN for nutrition started 11/08. Low fiber diet started 11/12. Morphine 2 mg ivp q4h prn for severe pain, monitor for sedation Oncology note reviewed, management as below MRI Liver results: Multiple liver lesions concerning for metastatic disease possibly gastrointestinal in origin given prior CT 11/05/2023. Finding could be secondary to mesenteric mass with tethering multiple loops of bowel Pathology report: Liver and colon biopsies positive for metastatic well- differentiated neuroendocrine tumor. Treatment on hold for 4 to 6 weeks status post surgery. Peritoneal fluid cytology negative for malignancy Will obtain PET scan outpatient Serotonin, chromogranin A, and 24-hour urine HIAA pending Surgery note reviewed. Stomy appears necrotic. High risk of infarction. Will go into surgery most likely tomorrow. N.p.o. after midnight, hold IV heparin after midnight Atrial fibrillation w/ rvr Hypomagnesemia resolved Monitoring on telemetry Cardiology note reviewed. Continue Metoprolol 100 mg p.o. twice daily for rate control. continue amiodarone 200 mg daily. Will monitor heart rate, under 120 bpm is acceptable. Eliquis discontinued, currently on heparin drip, monitor APTT, daily CBC, hold after midnight Magnesium sulfate IV 3 g Keep K > 4, magnesium > 2 Will monitor potassium and magnesium. Follow-up BMP Hypoalbuminemia Anasarca Heart failure with reduced ejection fraction 35 to 40%, not in exacerbation Hyponatremia, likely hypervolemic Albumin 2.0, total protein 4.2 Likely due to malnutrition. Patient on TPN Will encourage to increase oral intake IV Lasix 40 mg daily for 3 days per cardiology Results on echocardiogram doppler showed left ventricular ejection fraction 35 to 40%. Mildly increased left ventricular wall thickness Mild mitral regurgitation. Mild aortic stenosis. No pericardial effusion. Leukocytosis, neutrophilic predominance Infectious versus reactive ID discontinued, IV ceftriaxone 2gm. Continue Zosyn 4.375g IV TID on 11/09 by ID., Continue oral Flagyl 500 3 times daily. Peritoneal cultures: anaerobic culture: bacteroides thetaiotaomicron beta- lactamase postive; aerobic culture: Enterococcus faecium ID note reviewed. Patient with worsening white count of 31.9, patient is to continue with Unasyn and Flagyl. Eraxis 100 mg IV push daily restarted. Repeat CBC Hyperglycemia Hypoglycemia, resolved continue Levemir 15 unit SQ daily, for better glycemic control. 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 Discussed with the resident and agree with the residents finding and plan as documented in the resident's note. Changes highlighted in blue font. Objective - Vital Signs Vital signs: Vital Signs Temp 97.8 F 11/18/23 13:18 Pulse 95 11/18/23 13:18 Resp 16 11/18/23 13:18 BP 116/67 11/18/23 13:18 Pulse Ox 95 11/18/23 13:18 FiO2 Intake & Output 11/17/23 11/18/23 11/18/23 18:59 06:59 18:59 Intake Total 667.941 8908.015 Output Total 325 325 200 Balance 380.857 -325 1469.015 Weight 79.8 kg 79.8 kg Intake: Intake, IV Titration 429.415 3985.015 Amount Heparin Sod,Pork in 0.45% 229.857 158.015 NaCl 25,000 unit In 0.45 % NaCl 1 250ml.bag @ 12 UNITS/KG/HR 8.94 mls/hr IV .Q24H [facility] Rx#: [id number] Mvi, Adult No.4 with Vit 1069 K 10 ml Trace (Conc-1Ml/ Dose) 1 ml Calcium Gluconate 1 gm Sodium Acetate 70 meq Magnesium Sulfate gm 0.5 gm Potassium Phosphate 21 mmol Potassium Chloride 10 meq In Amino Acids 5 % /Dextrose 20 % 1,000 ml @ 52 mls/hr IV .[id number] [facility] Rx#:[id number] Oral [id number] Output: Urine 200 Stool 325 125 200 Other: Voiding Method External Catheter External Catheter External Catheter - Labs CBC & Chem 7: 11/18/23 07:30 11/18/23 07:30 Labs: Abnormal Lab Results - Last 24 Hours (Table) 11/17/23 11/17/23 11/17/23 Range/Units 14:29 18:19 23:23 WBC (3.8-10.6) k/uL RBC (3.80-5.40) m/uL Hgb (11.4-16.0) gm/dL Hct (34.0-46.0) % Neutrophils # (Manual) (1.3-7.7) k/uL Lymphocytes # (Manual) (1.0-4.8) k/uL APTT 45.6 H (22.0-30.0) sec Sodium (137-145) mmol/L Creatinine (0.52-1.04) mg/dL Glucose (74-99) mg/dL POC Glucose (mg/dL) 189 H 152 H (70-110) mg/dL Calcium (8.4-10.2) mg/dL AST (14-36) U/L ALT (4-34) U/L Total Protein (6.3-8.2) g/dL Albumin (3.5-5.0) g/dL 11/18/23 11/18/23 11/18/23 Range/Units 05:58 07:30 07:30 WBC (3.8-10.6) k/uL RBC (3.80-5.40) m/uL Hgb (11.4-16.0) gm/dL Hct (34.0-46.0) % Neutrophils # (Manual) (1.3-7.7) k/uL Lymphocytes # (Manual) (1.0-4.8) k/uL APTT 41.3 H (22.0-30.0) sec Sodium 130 L (137-145) mmol/L Creatinine 0.38 L (0.52-1.04) mg/dL Glucose 147 H (74-99) mg/dL POC Glucose (mg/dL) 154 H (70-110) mg/dL Calcium 7.9 L (8.4-10.2) mg/dL AST 67 H (14-36) U/L ALT 57 H (4-34) U/L Total Protein 4.5 L (6.3-8.2) g/dL Albumin 2.2 L (3.5-5.0) g/dL 11/18/23 11/18/23 Range/Units 07:30 11:44 WBC 31.9 H (3.8-10.6) k/uL RBC 3.26 L (3.80-5.40) m/uL Hgb 10.5 L (11.4-16.0) gm/dL Hct 32.5 L (34.0-46.0) % Neutrophils # (Manual) 24.88 H (1.3-7.7) k/uL Lymphocytes # (Manual) 6.38 H (1.0-4.8) k/uL APTT (22.0-30.0) sec Sodium (137-145) mmol/L Creatinine (0.52-1.04) mg/dL Glucose (74-99) mg/dL POC Glucose (mg/dL) 173 H (70-110) mg/dL Calcium (8.4-10.2) mg/dL AST (14-36) U/L ALT (4-34) U/L Total Protein (6.3-8.2) g/dL Albumin (3.5-5.0) g/dL
--- NOTE | 2023-11-18 15:07 | P.PN ---
Subjective Progress Note Date: 11/18/23 CHIEF COMPLAINT: Large bowel obstruction HISTORY OF PRESENT ILLNESS: The patient is a 88-year-old female admitted for large bowel obstruction due to sigmoid mass. She is status post colectomy with descending colostomy, liver biopsy, peritoneal fluid culture, open cholecystectomy. Her ostomy is functioning. Her stoma remains dark. She did have ostomy teaching today. Her white count has increased. She does still have abdominal pain. Has been tachycardic. Afebrile. WBC is up from 26.9-31 blood culture pending PHYSICAL EXAM: VITAL SIGNS: Reviewed GENERAL: Well-developed in no acute distress. HEENT: No sclera icterus. Extraocular movements grossly intact. Moist buccal mucosa. Head is atraumatic, normocephalic. Hears conversational speech. No nasal drainage. NECK: Supple without lymphadenopathy. CHEST: Non-labored respirations and equal bilateral excursions. CARDIOVASCULAR: Palpable 2+ radial pulses. ABDOMEN: Diffuse tenderness. Mildly distended. Prevana wound VAC intact. S polo is dark. There is stool present in ostomy MUSCULOSKELETAL: No clubbing or cyanosis. NEUROLOGIC: No focal or lateralizing signs. Cranial nerves II through XII grossly intact. PSYCH: Appropriate affect. Alert and oriented to person, place and time. SKIN: Well perfused. Good skin turgor. ASSESSMENT: 1. Abdominal pain with distention 2. Hyponatremia 3. History of breast cancer 4. Large bowel obstruction diverticulosis 5. Diverticulosis diverticulitis 6. Abnormal CT scan for malignancy 7. Leukocytosis 8. Severe hypothyroidism 9. Atrial fibrillation with rapid ventricular response 10. Cholecystitis 11. Large bowel obstruction and small bowel ischemia 12. Elevated LFTs 13. Pathology results reports of metastatic well-differentiated neuroendocrine tumor PLAN: -Patient scheduled for exploratory laparotomy and revision of ostomy tomorrow, November 19, [address] Cedeno -Hold IV heparin after midnight -N.p.o. after midnight -Lactic acid level and CT scan abdomen pelvis ordered due to increased white count and concerns for bowel ischemia -Continue antibiotics Physician Timers Inspector note has been reviewed by physician. Signing provider agrees with the documented findings, assessment, and plan of care. See additional documentation below CHIEF COMPLAINT: Bowel obstruction with metastatic cancer HISTORY OF PRESENT ILLNESS: The patient is a 88-year-old female mostly presented with abdominal distention and mild abdominal pain. She underwent colectomy with liver biopsy and cholecystectomy with pathology confirming metastatic neuroendocrine tumor. Her daughter is at bedside. Multiple villous were performed today prior to her CT scan and after CT scan. Patient is sitting up in a chair fairly comfortable. No new complaints. She reports moderate swelli ng of the lower extremities. ROS: No reports of nausea and vomiting. No fevers or chills. No new chest pain. No productive sputum PHYSICAL EXAM: VITAL SIGNS: Reviewed CONSTITUTIONAL: Well developed and in no acute distress. EYES: Conjuctivae without sclera icterus. Extraocular movements grossly intact. HEAD, EARS, NOSE, THROAT: Moist buccal mucosa. Head is atraumatic, normocephalic. Hears conversational speech. No nasal drainage. RESPIRATORY: Non-labored respirations and equal bilateral excursions. CARDIOVASCULAR: Palpable 2+ radial pulses. ABDOMEN: Dressing midline intact. Ostomy with pink circular edges. Mucosa dark. Moderate stool flatus. MUSCULOSKELETAL: No gross deformity of the lower extremities noted. No clubbing. No cyanosis. SKIN: Good skin turgor. Well perfused. NEUROLOGIC: Cranial nerves II through XII grossly intact. No focal or lateralizing signs. PSYCH: Appropriate affect. Alert and oriented to person, place and time. CLINICAL LABS: Reviewed. WBC elevated over 31,000 lactate normal. STUDIES: CT of the abdomen pelvis independently reviewed demonstrates new bilateral pleural effusions. Additionally, new cavitary necrotic liver lesion at the dome of the liver not present on prior CT scans. Presence of ischemic colitis throughout the colon. Abdominal ascites present. Generalized anasarca. Multiple liver lesions new than prior. This is my independent interpretation. REPORT: Reviewed confirming new cavitary lesion and worsening metastatic lesions of the liver with new metastatic nodules. Presence of ischemic colitis. ASSESSMENT: 1. Metastatic neuroendocrine colon carcinoma 2. New cavitary liver lesion likely causing elevated white blood cell count 3. Ischemic enteritis with colitis 4. Protein malnutrition, moderate to severe 5. Generalized anasarca with ascites PLAN: 1. Her global picture and new finding on her CT scan is questionable for etiology from her malignancy. Clinically she is nontoxic in appearance and her ostomy has pink viable edges. Will hold on revision of colostomy and possible exploratory laparotomy until discussion with cardiology, oncology, infectious disease, medical team including pulmonary team which will be consulted for symptomatic bilateral effusions. 2. She has moderate to severe protein malnutrition due to poor oral intake 2 weeks prior to admission as well as poor appetite during hospitalization. Recommend high-protein diet such as Ensure max 30 g 2-3 times daily. This s hould help correct her hypoalbuminemia and resultant ascites 3. Recommend continue with heparin drip due to ischemic colitis and ischemic bowel 4. Surgery on hold pending additional discussion with multiple consultants. 5. Care plan reviewed in detail including new findings and imaging stand with patient and daughter at bedside. They are agreeable at holding off from surgery pending group discussion of new findings Objective - Vital Signs Vital signs: Vital Signs Temp 97.8 F 11/18/23 13:18 Pulse 95 11/18/23 13:18 Resp 16 11/18/23 13:18 BP 116/67 11/18/23 13:18 Pulse Ox 95 11/18/23 13:18 FiO2 Intake & Output 11/17/23 11/18/23 11/18/23 18:59 06:59 18:59 Intake Total 308.165 5209.015 Output Total 325 325 200 Balance 380.857 -325 1469.015 Weight 79.8 kg 79.8 kg Intake: Intake, IV Titration 537.431 0985.015 Amount Heparin Sod,Pork in 0.45% 229.857 158.015 NaCl 25,000 unit In 0.45 % NaCl 1 250ml.bag @ 12 UNITS/KG/HR 8.94 mls/hr IV .Q24H [facility] Rx#: [id number] Mvi, Adult No.4 with Vit 1069 K 10 ml Trace (Conc-1Ml/ Dose) 1 ml Calcium Gluconate 1 gm Sodium Acetate 70 meq Magnesium Sulfate gm 0.5 gm Potassium Phosphate 21 mmol Potassium Chloride 10 meq In Amino Acids 5 % /Dextrose 20 % 1,000 ml @ 52 mls/hr IV .[id number] [facility] Rx#:[id number] Oral 476 442 Output: Urine 200 Stool 325 125 200 Other: Voiding Method External Catheter External Catheter External Catheter - Labs CBC & Chem 7: 11/18/23 07:30 11/18/23 07:30 Labs: Abnormal Lab Results - Last 24 Hours (Table) 11/17/23 11/17/23 11/17/23 Range/Units 14:29 18:19 23:23 WBC (3.8-10.6) k/uL RBC (3.80-5.40) m/uL Hgb (11.4-16.0) gm/dL Hct (34.0-46.0) % Neutrophils # (Manual) (1.3-7.7) k/uL Lymphocytes # (Manual) (1.0-4.8) k/uL APTT 45.6 H (22.0-30.0) sec Sodium (137-145) mmol/L Creatinine (0.52-1.04) mg/dL Glucose (74-99) mg/dL POC Glucose (mg/dL) 189 H 152 H (70-110) mg/dL Calcium (8.4-10.2) mg/dL AST (14-36) U/L ALT (4-34) U/L Total Protein (6.3-8.2) g/dL Albumin (3.5-5.0) g/dL 11/18/23 11/18/23 11/18/23 Range/Units 05:58 07:30 07:30 WBC (3.8-10.6) k/uL RBC (3.80-5.40) m/uL Hgb (11.4-16.0) gm/dL Hct (34.0-46.0) % Neutrophils # (Manual) (1.3-7.7) k/uL Lymphocytes # (Manual) (1.0-4.8) k/uL APTT 41.3 H (22.0-30.0) sec Sodium 130 L (137-145) mmol/L Creatinine 0.38 L (0.52-1.04) mg/dL Glucose 147 H (74-99) mg/dL POC Glucose (mg/dL) 154 H (70-110) mg/dL Calcium 7.9 L (8.4-10.2) mg/dL AST 67 H (14-36) U/L ALT 57 H (4-34) U/L Total Protein 4.5 L (6.3-8.2) g/dL Albumin 2.2 L (3.5-5.0) g/dL 11/18/23 11/18/23 Range/Units 07:30 11:44 WBC 31.9 H (3.8-10.6) k/uL RBC 3.26 L (3.80-5.40) m/uL Hgb 10.5 L (11.4-16.0) gm/dL Hct 32.5 L (34.0-46.0) % Neutrophils # (Manual) 24.88 H (1.3-7.7) k/uL Lymphocytes # (Manual) 6.38 H (1.0-4.8) k/uL APTT (22.0-30.0) sec Sodium (137-145) mmol/L Creatinine (0.52-1.04) mg/dL Glucose (74-99) mg/dL POC Glucose (mg/dL) 173 H (70-110) mg/dL Calcium (8.4-10.2) mg/dL AST (14-36) U/L ALT (4-34) U/L Total Protein (6.3-8.2) g/dL Albumin (3.5-5.0) g/dL
--- NOTE | 2023-11-18 16:16 | CT ---
EXAMINATION TYPE: CT abdomen pelvis w con DATE OF EXAM: 11/18/2023 COMPARISON: 11/05/2023 HISTORY: Abdominal pain CT DLP: 1494.4 mGycm CONTRAST: CT scan of the abdomen and pelvis is performed with Oral Contrast and with IV Contrast, patient injec leticia with 100 mL of Isovue 300. FINDINGS: LUNG BASES-: Interval development of bilateral pleural effusions right slightly greater than left wit h compressive atelectasis. There is pleural scarring noted along the right lower lobe anteriorly. LIVER/GB: There appears to be a cavitary lesion at the dome of the liver measuring 3.6 cm with cavita tion being a new finding. There is additional cavitary lesion posterior segment right hepatic lobe me asuring 2 cm also a new finding. There are also additional hyperechoic lesions scattered throughout t he liver compatible with metastatic disease. PANCREAS: No inflammation. No distinct mass. SPLEEN: No splenic enlargement. No lesion seen. ADRENALS: No nodule. No thickening. KIDNEYS/BLADDER: No hydronephrosis. No nephrolithiasis. No distinct renal mass. Urinary bladder g rossly unremarkable. BOWEL: There is interval partial sigmoidectomy with diverting colostomy. Colostomy segment demonstrat es a thickened wall and inflammatory changes difficult to exclude. In fact there is wall thickening t hroughout the colon which could reflect nonspecific colitis with ischemic, inflammatory and infectiou s differential diagnostic possibilities. Mild small bowel wall edema. GENITAL ORGANS: No gross abnormality. LYMPH NODES: No greater than 1cm abdominal or pelvic lymph nodes are appreciated. AORTA: No significant abnormality. OSSEOUS STRUCTURES: Scattered sclerotic lesions suspicious for metastatic disease. OTHER: There is diffuse subcutaneous edema as well as mild intra-abdominal and intrapelvic ascites co mpatible with anasarca. IMPRESSION: 1. Progression of metastatic disease to the liver. 2. Interval development of anasarca. 3. Nodular studding right lower lobe anteriorly. Metastatic disease to the chest is difficult to excl ude. 4. Colonic wall thickening with differential diagnostic possibilities given above. Interval diverting colostomy with sigmoidectomy.
[2023-11-18 17:04] LABS: Glucose,Whole Blood 144 mg/dL (70-110)
[2023-11-18] MEDS: ACETAMINOPHEN TAB 325 MG TAB PO PRN (20:48)
[2023-11-18 23:14] LABS: Glucose,Whole Blood 161 mg/dL (70-110)
[2023-11-19 05:51] LABS: Glucose,Whole Blood 199 mg/dL (70-110)
[2023-11-19] MEDS: MVI, ADULT NO.4 WITH VIT K 10 ML, TRACE (CONC-1ML/DOSE) 1 ML, CALCIUM GLUCONATE 1 GM, S... IV SCH (06:41)
[2023-11-19 07:09] LABS: HCT 30.1 % (34.0-46.0); HGB 9.8 gm/dL (11.4-16.0); MCH 32.4 pg (25.0-35.0); MCHC 32.5 g/dL (31.0-37.0); MCV 99.6 fL (80.0-100.0); Mean Platelet Volume 8.1; Platelet Count 415 k/uL (150-450); RBC 3.02 m/uL (3.80-5.40); RDW 13.7 % (11.5-15.5); WBC 27.8 k/uL (3.8-10.6)
[2023-11-19 07:22] LABS: ALT 47 U/L (4-34); AST 58 U/L (14-36); African American GFR (CKD) >90 (>60 ml/min/1.73 sqM); Albumin 2.1 g/dL (3.5-5.0); Alkaline Phosphatase 101 U/L (38-126); Anion Gap 3 mmol/L; Blood Urea Nitrogen 14 mg/dL (7-17); Calcium 7.9 mg/dL (8.4-10.2); Carbon Dioxide 28 mmol/L (22-30); Chloride 100 mmol/L (98-107); Glucose 155 mg/dL (74-99); Magnesium 1.9 mg/dL (1.6-2.3); Non-African American GFR(CKD) >90 (>60 ml/min/1.73 sqM); Phosphorus 3.5 mg/dL (2.5-4.5); Potassium 3.5 mmol/L (3.5-5.1); Sodium 131 mmol/L (137-145); Total Bilirubin 0.4 mg/dL (0.2-1.3); Total Protein 4.4 g/dL (6.3-8.2)
[2023-11-19] MEDS ORDERED: LIDOCAINE 1% (10MG/ML) FOR IV START INTRADERMA PRN (07:53)
[2023-11-19] MEDS ORDERED: fentaNYL (PF) 50 MCG/ML 2 ML AMP IVP PRN (07:53)
[2023-11-19] MEDS ORDERED: HYDROmorphone 0.5 MG/0.5 ML SYRINGE IVP PRN (07:53)
[2023-11-19] MEDS ORDERED: MIDAZOLAM 2 MG/2 ML VIAL IV PRN (07:53)
[2023-11-19 08:05] LABS: Eosinophils # (M) 0.56 k/uL (0-0.7); Lymphocytes # (M) 3.61 k/uL (1.0-4.8); Monocytes # (M) 1.39 k/uL (0-1.0); Neutrophils # (M) 22.24 k/uL (1.3-7.7); Neutrophils % (M) 80 %; Nucleated Red Blood Cells 0 /100 WBC (0-0); Total Cells Counted 100
[2023-11-19] MEDS: LACTATED RINGERS 1,000 ML IV SCH (08:42)
[2023-11-19] MEDS: ONDANSETRON 4 MG/2 ML VIAL IVP ONE (10:28)
[2023-11-19] MEDS: DEXAMETHASONE SOD PHOSPHATE 4 MG/ML 1 ML VIAL IV ONE (10:28)
--- NOTE | 2023-11-19 11:57 | US ---
EXAMINATION TYPE: US chest DATE OF EXAM: 11/19/2023 COMPARISON: NONE CLINICAL INDICATION: Female, 88 years old with history of Pleural effusions; bilat pleural effusions TECHNIQUE: Targeted ultrasound of the posterior lower bilateral hemithoraces EXAM MEASUREMENTS: Right Pleural Effusion pocket size: moderate pocket but there was mobile lung tissue within 2.cm of chest wall Left Pleural Effusion pocket size: 2.6 cm Pulmonologists are able to review the images in the patient?s EMR. IMPRESSIONS: Left small to moderate pleural effusion.
[2023-11-19 13:01] LABS: Glucose,Whole Blood 167 mg/dL (70-110)
--- NOTE | 2023-11-19 14:38 | P.PN ---
Subjective Progress Note Date: 11/19/23 CHIEF COMPLAINT: Large bowel obstruction with metastatic cancer HISTORY OF PRESENT ILLNESS: The patient is a 88-year-old female mostly presented with abdominal distention and mild abdominal pain. She underwent colectomy with liver biopsy and cholecystectomy with pathology confirming metastatic neuroendo crine tumor. patient complains of abdominal pain. Revision of her ostomy her today has been canceled. Her computed tomography scan had showed progression of metastatic liver disease. interval development of anasarca. Nodular studding right lower lobe anterior. Metastatic disease to the chest difficult to exclude. Colonic wall thickening. Dr. Cedeno is discussing the case with all consulting physicians. PHYSICAL EXAM: VITAL SIGNS: Reviewed GENERAL: Well-developed in no acute distress. HEENT: No sclera icterus. Extraocular movements grossly intact. Moist buccal mucosa. Head is atraumatic, normocephalic. Hears conversational speech. No nasal drainage. NECK: Supple without lymphadenopathy. CHEST: Non-labored respirations and equal bilateral excursions. CARDIOVASCULAR: Palpable 2+ radial pulses. ABDOMEN: Diffuse tenderness. Mildly distended. Prevana wound VAC intact. St arturo is dark. There is stool present in ostomy MUSCULOSKELETAL: No clubbing or cyanosis. NEUROLOGIC: No focal or lateralizing signs. Cranial nerves II through XII grossly intact. PSYCH: Appropriate affect. Alert and oriented to person, place and time. SKIN: Well perfused. Good skin turgor. ASSESSMENT: 1. Metastatic neuroendocrine colon carcinoma 2. New cavitary liver lesion likely causing elevated white blood cell count 3. Ischemic enteritis with colitis 4. Protein malnutrition, moderate to severe 5. Generalized anasarca with ascites PLAN: -patient scheduled for exploratory laparotomy with total colectomy with ileostomy on 11/22/2023 -Recommend high-protein diet such as Ensure max 30 g 2-3 times daily. This should help correct her hypoalbuminemia and resultant ascites -Recommend continue with heparin drip due to ischemic colitis and ischemic bowel Physician Barrel Roller Operator note has been reviewed by physician. Signing provider agrees with the documented findings, assessment, and plan of care. See additional documentation below CHIEF COMPLAINT: Bowel obstruction with metastatic cancer HISTORY OF PRESENT ILLNESS: The patient is a 88-year-old female diagnosed with metastatic neuroendocrine tumor of the colon/liver. She had a CT scan demonstrating moderate ischemic colitis including new necrotic cavitary tumor of the liver and metastatic lesions to the lung. Discussion with consultants including infectious disease, oncology, pulmonary, cardiology including discussion with admitting team regarding patient's new findings on CT scan. Due to new finding on CT scan, surgery was canceled. Additionally, patient reports improvement of stool from diarrhea to formed. She also reports ostomy is becoming more pink and sloughing off. ROS: No reports of nausea and vomiting. No fevers or chills. No new chest pain. No productive sputum PHYSICAL EXAM: VITAL SIGNS: Reviewed CONSTITUTIONAL: Well developed and in no acute distress. EYES: Conjuctivae without sclera icterus. Extraocular movements grossly intact. HEAD, EARS, NOSE, THROAT: Moist buccal mucosa. Head is atraumatic, normocephalic. Hears conversational speech. No nasal drainage. RESPIRATORY: Non-labored respirations and equal bilateral excursions. CARDIOVASCULAR: Palpable 2+ radial pulses. ABDOMEN: Prevena wound VAC intact. Ostomy with stool and flatus. MUSCULOSKELETAL: No gross deformity of the lower extremities noted. No clubbing. No cyanosis. SKIN: Good skin turgor. Well perfused. NEUROLOGIC: Cranial nerves II through XII grossly intact. No focal or lateralizing signs. PSYCH: Appropriate affect. Alert and oriented to person, place and time. CLINICAL LABS: Reviewed. WBC elevated over 31,000 trending down 27,000 ASSESSMENT: 1. Metastatic neuroendocrine colon carcinoma 2. New cavitary liver lesion likely causing elevated white blood cell count 3. Ischemic enteritis with colitis 4. Protein malnutrition, moderate to severe 5. Generalized anasarca with ascites PLAN: 1. Overall patient has persistent bowel ischemia. Discussion with cardiology reveals that patient has depressed ejection fraction which may contribute to low flow state and poor ischemia to the abdomen. Patient has no clinical symptoms of moderate abdominal pain or toxic appearance. Recommend optimization of atrial fibrillation including becoming rate controlled and continuing heparin/anticoagulation. 2. She has moderate ascites including new bilateral pleural effusions. Increasing her oncotic pressure with a high-protein diet was described including protein shakes that she reports suppressed appetite from solid foods. 3. Holding TPN due to volume overload status initiated. 4. Discussion infectious disease including response to antibiotics demonstrate improvement of leukocytosis. 5. Discussion with oncology regarding new cavitary necrotic tumor lesion also described with possible testes to the lung. Pulmonary consulted for possible bilateral thoracocentesis with cell cytology for metastatic disease. 6. Discussion medicine team for care goals also reviewed with by patient has an option for discharge to rehab once cleared by all consultants. Objective - Vital Signs Vital signs: Vital Signs Temp 98.3 F 11/19/23 12:13 Pulse 86 11/19/23 12:13 Resp 16 11/19/23 12:13 BP 128/70 11/19/23 12:13 Pulse Ox 98 11/19/23 12:13 FiO2 Intake & Output 11/18/23 11/19/23 11/19/23 18:59 06:59 18:59 Intake Total 1761.000 131.915 20 Output Total 424 837 4718 Balance 811.000 -793.085 -1605 Weight 79.8 kg 76.8 kg Intake: IV 20 Invasive Line 7 20 Intake, IV Titration 1319.000 131.915 0 Amount Heparin Sod,Pork in 0.45% 250.000 131.915 0 NaCl 25,000 unit In 0.45 % NaCl 1 250ml.bag @ 12 UNITS/KG/HR 8.94 mls/hr IV .Q24H [facility] Rx#: [id number] Mvi, Adult No.4 with Vit 1069 K 10 ml Trace (Conc-1Ml/ Dose) 1 ml Calcium Gluconate 1 gm Sodium Acetate 70 meq Magnesium Sulfate gm 0.5 gm Potassium Phosphate 21 mmol Potassium Chloride 10 meq In Amino Acids 5 % /Dextrose 20 % 1,000 ml @ 52 mls/hr IV .[id number] [facility] Rx#:[id number] Oral 442 Output: Urine 600 1550 Stool 950 325 75 Other: Voiding Method External Catheter External Catheter External Catheter # Voids 4 - Labs CBC & Chem 7: 11/19/23 06:47 11/19/23 06:47 Labs: Abnormal Lab Results - Last 24 Hours (Table) 11/18/23 11/18/23 11/18/23 Range/Units 16:16 17:02 23:13 WBC (3.8-10.6) k/uL RBC (3.80-5.40) m/uL Hgb (11.4-16.0) gm/dL Hct (34.0-46.0) % Neutrophils # (Manual) (1.3-7.7) k/uL Monocytes # (Manual) (0-1.0) k/uL APTT 47.6 H (22.0-30.0) sec Sodium (137-145) mmol/L Creatinine (0.52-1.04) mg/dL Glucose (74-99) mg/dL POC Glucose (mg/dL) 144 H 161 H (70-110) mg/dL Calcium (8.4-10.2) mg/dL AST (14-36) U/L ALT (4-34) U/L Total Protein (6.3-8.2) g/dL Albumin (3.5-5.0) g/dL 11/19/23 11/19/23 11/19/23 Range/Units 05:50 06:47 06:47 WBC (3.8-10.6) k/uL RBC (3.80-5.40) m/uL Hgb (11.4-16.0) gm/dL Hct (34.0-46.0) % Neutrophils # (Manual) (1.3-7.7) k/uL Monocytes # (Manual) (0-1.0) k/uL APTT 45.7 H (22.0-30.0) sec Sodium 131 L (137-145) mmol/L Creatinine 0.41 L (0.52-1.04) mg/dL Glucose 155 H (74-99) mg/dL POC Glucose (mg/dL) 199 H (70-110) mg/dL Calcium 7.9 L (8.4-10.2) mg/dL AST 58 H (14-36) U/L ALT 47 H (4-34) U/L Total Protein 4.4 L (6.3-8.2) g/dL Albumin 2.1 L (3.5-5.0) g/dL 11/19/23 11/19/23 Range/Units 06:47 12:59 WBC 27.8 H (3.8-10.6) k/uL RBC 3.02 L (3.80-5.40) m/uL Hgb 9.8 L (11.4-16.0) gm/dL Hct 30.1 L (34.0-46.0) % Neutrophils # (Manual) 22.24 H (1.3-7.7) k/uL Monocytes # (Manual) 1.39 H (0-1.0) k/uL APTT (22.0-30.0) sec Sodium (137-145) mmol/L Creatinine (0.52-1.04) mg/dL Glucose (74-99) mg/dL POC Glucose (mg/dL) 167 H (70-110) mg/dL Calcium (8.4-10.2) mg/dL AST (14-36) U/L ALT (4-34) U/L Total Protein (6.3-8.2) g/dL Albumin (3.5-5.0) g/dL Microbiology - Last 24 Hours (Table) 11/17/23 14:37 Blood Culture - Preliminary Blood
--- NOTE | 2023-11-19 14:38 | P.CNPUL ---
History of Present Illness Consult date: 11/19/23 Requesting physician: Tere Coles Reason for consult: abnormal CXR/CT Chief complaint: Pleural effusion. History of present illness: Pulmonary consult dated 11/19/2023. 88-year-old female who's been in the hospital now for 15 days. We were consulted yesterday, for possible bilateral pleural effusions. The patient is not having any shortness of breath. She's on room air. She's currently on IV heparin, TPN at 52 mL an hour, and Eraxis.the patient was admitted back on November 04, for constipation and abdominal pain. 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 She apparently was not able to have a bowel movement for at least 11 days prior to admission.a computed tomography scan showed a partial large bowel obstruction sigmoid colon, secondary to colitis versus mass with upstream dilatation of large and small bowel. In addition, there are multiple indeterminate enhancing lesions within the liver as well as sclerotic lesion within the left proximal femur.On November 11, the patient went to the operating room with Dr. 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 The left pleural effusion was only 2.6 cm, and the right-sided effusion was a moderate pocket, with mobile lung tissue within 2 cm of the chest wall. For that reason, no thoracentesis will be done. In addition, the patient was on room air, and not complaining of shortness of breath. Review of Systems REVIEW OF SYSTEMS: CONSTITUTIONAL: [Negative.] NEUROLOGIC: [ Negative.] HEENT: [ Negative.] CARDIAC: [Negative.] PULMONARY: [Negative.] GI: [Negative.] : [Negative.] RHEUMATOLOGIC: [ Negative.] IMMUNOLOGIC: [ Negative.] ENDOCRINE: [Negative. ] DERMATOLOGIC: [Negative.] Past Medical History Past Medical History: Atrial Fibrillation, Cancer, Hyperlipidemia, Hypertension Additional Past Medical History / Comment(s): breast CA 1987, chroic back pain History of Any Multi-Drug Resistant Organisms: ESBL Date of last positivie culture/infection: 05/04/19-ESBL E.coli MDRO Source:: Urine Past Surgical History: Orthopedic Surgery Additional Past Surgical History / Comment(s): lumpectomy. BILAT KNEE REPL. BILAT CATARACT REM Past Anesthesia/Blood Transfusion Reactions: No Reported Reaction Past Psychological History: No Psychological Hx Reported Smoking Status: Never smoker Past Alcohol Use History: Daily Past Drug Use History: None Reported Medications and Allergies Home Medications Medication Instructions Recorded Confirmed Type Amiodarone HCl [Pacerone] 200 mg PO DAILY 05/19/22 11/05/23 History Apixaban [Eliquis] 5 mg PO BID 05/19/22 11/05/23 History Atorvastatin [Lipitor] 20 mg PO DAILY 05/19/22 11/05/23 History Calcium Carbonate [Calcium] 600 mg PO HS 05/19/22 11/05/23 History Cholecalciferol [Vitamin D3 (25 25 mcg PO HS 05/19/22 11/05/23 History Mcg = 1000 Iu)] Cyanocobalamin (Vitamin B-12) 1,000 mcg PO Q7D 05/19/22 11/05/23 History [Vitamin B-12] Levothyroxine Sodium [Synthroid] 100 mcg PO DAILY 05/19/22 11/05/23 History Losartan/Hydrochlorothiazide 1 tab PO DAILY 05/19/22 11/05/23 History [Losartan-Hctz 50-12.5 mg Tab] Multivit-Min/FA/Lycopen/Lutein 1 tab PO HS 05/19/22 11/05/23 History [Centrum Silver Tablet] Omeprazole [PriLOSEC] 20 mg PO DAILY 05/19/22 11/05/23 History Metoprolol Tartrate 25 mg PO BID 09/14/22 11/05/23 History Acetaminophen Tab [Tylenol Tab] 1,000 mg PO BID 11/05/23 11/05/23 History HYDROcodone/APAP 5-325MG [[place] 1 tab PO BID PRN 11/05/23 11/05/23 History 5-325] Magnesium Hydroxide [Milk of 2,400 mg PO DAILY PRN 11/05/23 11/05/23 History Magnesia] Mirabegron [Myrbetriq] 50 mg PO DAILY 11/05/23 11/05/23 History Super B Complex 1 tab PO Q7D 11/05/23 11/05/23 History traMADol HCL 50 mg PO TID PRN 11/05/23 11/05/23 History Allergies Allergy/AdvReac Type Severity Reaction Status Date / Time No Known Allergies Allergy Verified 11/05/23 18:15 Physical Exam Osteopathic Statement: *. No significant issues noted on an osteopathic struc tural exam other than those noted in the History and Physical/Consult. Vitals: Vital Signs Temp Pulse Pulse Resp BP Pulse Ox 11/19/23 12:13 98.3 F 86 16 128/70 98 11/19/23 09:01 97.8 F 120 H 18 148/79 96 11/19/23 03:16 98.1 F 96 16 135/73 96 11/18/23 22:43 98.1 F 95 16 112/73 96 11/18/23 19:42 98.1 F 104 H 16 108/66 96 Intake and Output 11/18/23 11/19/23 11/19/23 22:59 06:59 14:59 Intake Total 91.985 131.915 20 Output Total 2787 757 7062 Balance -958.015 -293.085 -1605 Intake: IV 20 Invasive Line 7 20 Intake, IV Titration 91.985 131.915 0 Amount Heparin Sod,Pork in 0.45% 91.985 131.915 0 NaCl 25,000 unit In 0.45 % NaCl 1 250ml.bag @ 12 UNITS/KG/HR 8.94 mls/hr IV .Q24H [facility] Rx#: [id number] Output: Urine 219 861 3587 Stool 750 125 75 Other: Voiding Method External Catheter External Catheter External Catheter # Voids 4 Weight 76.8 kg No acute distress, oriented 3.currently on room air. No respiratory difficulty. HEENT examination is grossly unremarkable. Mucous membranes are moist. No oral lesions. Neck supple. Full range of motion. No adenopathy thyromegaly or neck vein distention. Cardiovascular examination reveals regular rhythm rate. S1-S2 normal. No S3 or S4. No discernible murmur noted. Lungs reveal clear breath sounds. Breath sounds are equal bilaterally. No adventitious lung sounds including wheezes rhonchi or crackles. Abdomen soft bowel sounds are heard. No masses or tenderness. Extremities are intact. No cyanosis clubbing or edema. Skin is without rash or lesion. Neurologic examination is brief but nonfocal. Results - Laboratory Findings CBC and BMP: 11/19/23 06:47 11/19/23 06:47 PT/INR, D-dimer PT 10.0 sec (10.0-12.5) 11/16/23 06:21 INR 0.9 (<1.2) 11/16/23 06:21 Abnormal lab findings: Abnormal Labs 11/05/23 11/05/23 11/05/23 18:01 18:01 18:01 WBC 14.1 H RBC Hgb Hct MCV 101.6 H MCH MCHC Plt Count Immature Gran # Neutrophils # 11.0 H Neutrophils # (Manual) Lymphocytes # (Manual) Monocytes # Monocytes # (Manual) Eosinophils # APTT VBG pCO2 VBG HCO3 Sodium 133 L Potassium Chloride Carbon Dioxide Anion Gap BUN Creatinine BUN/Creatinine Ratio Glucose 120 H POC Glucose (mg/dL) Calcium Phosphorus Magnesium AST 42 H ALT C-Reactive Protein Total Protein 6.2 L Albumin Tumor Marker AFP Vitamin B12 Folate 40.00 H RBC Folate TSH 11/05/23 11/06/23 11/06/23 18:01 03:33 03:33 WBC 14.5 H RBC 3.57 L Hgb Hct MCV MCH MCHC Plt Count Immature Gran # Neutrophils # Neutrophils # (Manual) Lymphocytes # (Manual) Monocytes # Monocytes # (Manual) Eosinophils # APTT VBG pCO2 VBG HCO3 Sodium Potassium Chloride Carbon Dioxide Anion Gap BUN Creatinine BUN/Creatinine Ratio Glucose POC Glucose (mg/dL) Calcium Phosphorus Magnesium AST ALT C-Reactive Protein Total Protein Albumin Tumor Marker AFP Vitamin B12 Folate RBC Folate 828 H TSH 18.300 H 11/06/23 11/06/23 11/06/23 03:33 03:33 03:33 WBC RBC Hgb Hct MCV MCH MCHC Plt Count Immature Gran # Neutrophils # Neutrophils # (Manual) Lymphocytes # (Manual) Monocytes # Monocytes # (Manual) Eosinophils # APTT VBG pCO2 VBG HCO3 Sodium 132 L Potassium Chloride Carbon Dioxide Anion Gap BUN Creatinine 0.49 L BUN/Creatinine Ratio Glucose 104 H POC Glucose (mg/dL) Calcium Phosphorus Magnesium AST ALT C-Reactive Protein Total Protein Albumin Tumor Marker AFP 12.40 H Vitamin B12 1467.0 H Folate RBC Folate TSH 11/07/23 11/07/23 11/07/23 05:35 05:35 22:50 WBC 17.48 H 18.7 H RBC 3.70 L Hgb 11.9 L Hct 36.4 L MCV 98.4 H 101.7 H MCH 32.2 H MCHC Plt Count Immature Gran # 0.07 H Neutrophils # 13.65 H 14.8 H Neutrophils # (Manual) Lymphocytes # (Manual) Monocytes # 1.37 H Monocytes # (Manual) Eosinophils # 0.01 L APTT VBG pCO2 VBG HCO3 Sodium Potassium Chloride Carbon Dioxide 21.2 L Anion Gap 12.80 H BUN Creatinine BUN/Creatinine Ratio 21.83 H Glucose POC Glucose (mg/dL) Calcium 8.3 L Phosphorus Magnesium AST ALT C-Reactive Protein Total Protein 4.9 L Albumin 3.2 L Tumor Marker AFP Vitamin B12 Folate RBC Folate [facility] 11/07/23 11/08/23 11/08/23 22:50 05:43 05:43 WBC RBC Hgb Hct MCV MCH MCHC Plt Count Immature Gran # Neutrophils # Neutrophils # (Manual) Lymphocytes # (Manual) Monocytes # Monocytes # (Manual) Eosinophils # APTT 31.9 H 31.5 H VBG pCO2 VBG HCO3 Sodium Potassium Chloride Carbon Dioxide 20.8 L Anion Gap 13.20 H BUN Creatinine BUN/Creatinine Ratio 23.29 H Glucose POC Glucose (mg/dL) Calcium 7.9 L Phosphorus Magnesium AST ALT C-Reactive Protein Total Protein Albumin Tumor Marker AFP Vitamin B12 Folate RBC Folate [facility] 11/08/23 11/08/23 11/09/23 05:43 22:39 10:35 WBC 17.70 H 20.3 H RBC 3.67 L Hgb 11.9 L Hct 36.8 L MCV 100.3 H 106.1 H MCH 32.4 H MCHC 29.8 L Plt Count 529 H Immature Gran # 0.07 H Neutrophils # 13.34 H 16.3 H Neutrophils # (Manual) Lymphocytes # (Manual) Monocytes # 1.41 H 1.2 H Monocytes # (Manual) Eosinophils # 0.02 L APTT 50.6 H VBG pCO2 VBG HCO3 Sodium Potassium Chloride Carbon Dioxide Anion Gap BUN Creatinine BUN/Creatinine Ratio Glucose POC Glucose (mg/dL) Calcium Phosphorus Magnesium AST ALT C-Reactive Protein Total Protein Albumin Tumor Marker AFP Vitamin B12 Folate RBC Folate [facility] 11/09/23 11/09/23 11/09/23 10:35 11:02 13:10 WBC RBC Hgb Hct MCV MCH MCHC Plt Count Immature Gran # Neutrophils # Neutrophils # (Manual) Lymphocytes # (Manual) Monocytes # Monocytes # (Manual) Eosinophils # APTT 31.5 H VBG pCO2 23 L VBG HCO3 13 L Sodium Potassium 3.2 L Chloride 112 H Carbon Dioxide 10 L Anion Gap BUN Creatinine BUN/Creatinine Ratio Glucose 62 L POC Glucose (mg/dL) Calcium 7.6 L Phosphorus Magnesium AST ALT C-Reactive Protein Total Protein 4.9 L Albumin 2.7 L Tumor Marker AFP Vitamin B12 Folate RBC Folate TSH 11/09/23 11/09/23 11/10/23 18:34 20:08 00:13 WBC RBC Hgb Hct MCV MCH MCHC Plt Count Immature Gran # Neutrophils # Neutrophils # (Manual) Lymphocytes # (Manual) Monocytes # Monocytes # (Manual) Eosinophils # APTT 92.2 H VBG pCO2 VBG HCO3 Sodium Potassium Chloride Carbon Dioxide Anion Gap BUN Creatinine BUN/Creatinine Ratio Glucose POC Glucose (mg/dL) 138 H 172 H Calcium Phosphorus Magnesium AST ALT C-Reactive Protein Total Protein Albumin Tumor Marker AFP Vitamin B12 Folate RBC Folate [facility] 11/10/23 11/10/23 11/10/23 00:44 05:57 06:19 WBC RBC Hgb Hct MCV MCH MCHC Plt Count Immature Gran # Neutrophils # Neutrophils # (Manual) Lymphocytes # (Manual) Monocytes # Monocytes # (Manual) Eosinophils # APTT 91.5 H VBG pCO2 VBG HCO3 Sodium Potassium Chloride Carbon Dioxide Anion Gap BUN Creatinine BUN/Creatinine Ratio Glucose POC Glucose (mg/dL) 222 H Calcium Phosphorus 1.9 L Magnesium 2.4 H AST ALT C-Reactive Protein Total Protein Albumin Tumor Marker AFP Vitamin B12 Folate RBC Folate [facility] 11/10/23 11/10/23 11/10/23 06:19 06:19 06:19 WBC 24.7 H RBC 3.77 L Hgb Hct MCV 103.4 H MCH MCHC Plt Count 524 H Immature Gran # Neutrophils # Neutrophils # (Manual) Lymphocytes # (Manual) Monocytes # Monocytes # (Manual) Eosinophils # APTT 89.5 H VBG pCO2 VBG HCO3 Sodium 136 L Potassium Chloride 112 H Carbon Dioxide 16 L Anion Gap BUN 19 H Creatinine BUN/Creatinine Ratio Glucose 223 H POC Glucose (mg/dL) Calcium 8.0 L Phosphorus Magnesium AST ALT C-Reactive Protein Total Protein 4.6 L Albumin 2.4 L Tumor Marker AFP Vitamin B12 Folate RBC Folate TSH 11/10/23 11/10/23 11/10/23 11:51 16:44 17:41 WBC RBC Hgb Hct MCV MCH MCHC Plt Count Immature Gran # Neutrophils # Neutrophils # (Manual) Lymphocytes # (Manual) Monocytes # Monocytes # (Manual) Eosinophils # APTT VBG pCO2 VBG HCO3 Sodium Potassium Chloride Carbon Dioxide Anion Gap BUN Creatinine BUN/Creatinine Ratio Glucose POC Glucose (mg/dL) 242 H 196 H Calcium Phosphorus Magnesium AST ALT C-Reactive Protein 21.7 H Total Protein Albumin Tumor Marker AFP Vitamin B12 Folate RBC Folate TSH 11/10/23 11/10/23 11/11/23 20:10 23:21 03:49 WBC 24.0 H RBC 3.73 L Hgb Hct MCV 101.8 H MCH MCHC Plt Count 486 H Immature Gran # Neutrophils # 18.9 H Neutrophils # (Manual) Lymphocytes # (Manual) Monocytes # 1.1 H Monocytes # (Manual) Eosinophils # APTT 37.9 H VBG pCO2 VBG HCO3 Sodium Potassium Chloride Carbon Dioxide Anion Gap BUN Creatinine BUN/Creatinine Ratio Glucose POC Glucose (mg/dL) 239 H Calcium Phosphorus Magnesium AST ALT C-Reactive Protein Total Protein Albumin Tumor Marker AFP Vitamin B12 Folate RBC Folate TSH 11/11/23 11/11/23 11/11/23 03:49 03:49 05:55 WBC RBC Hgb Hct MCV MCH MCHC Plt Count Immature Gran # Neutrophils # Neutrophils # (Manual) Lymphocytes # (Manual) Monocytes # Monocytes # (Manual) Eosinophils # APTT 66.1 H VBG pCO2 VBG HCO3 Sodium 134 L Potassium 3.3 L Chloride 112 H Carbon Dioxide 18 L Anion Gap BUN 21 H Creatinine BUN/Creatinine Ratio Glucose 246 H POC Glucose (mg/dL) 255 H Calcium 8.3 L Phosphorus 1.2 L Magnesium AST ALT C-Reactive Protein Total Protein Albumin Tumor Marker AFP Vitamin B12 Folate RBC Folate TSH 11/11/23 11/11/23 11/11/23 11:35 17:51 23:53 WBC RBC Hgb Hct MCV MCH MCHC Plt Count Immature Gran # Neutrophils # Neutrophils # (Manual) Lymphocytes # (Manual) Monocytes # Monocytes # (Manual) Eosinophils # APTT VBG pCO2 VBG HCO3 Sodium Potassium Chloride Carbon Dioxide Anion Gap BUN Creatinine BUN/Creatinine Ratio Glucose POC Glucose (mg/dL) 226 H 146 H 212 H Calcium Phosphorus Magnesium AST ALT C-Reactive Protein Total Protein Albumin Tumor Marker AFP Vitamin B12 Folate RBC Folate [facility] 11/12/23 11/12/23 11/12/23 06:16 06:16 06:16 WBC 21.2 H RBC 3.58 L Hgb Hct MCV 102.6 H MCH MCHC Plt Count 481 H Immature Gran # Neutrophils # 16.8 H Neutrophils # (Manual) Lymphocytes # (Manual) Monocytes # Monocytes # (Manual) Eosinophils # APTT VBG pCO2 VBG HCO3 Sodium 134 L Potassium Chloride 109 H Carbon Dioxide 20 L Anion Gap BUN 21 H Creatinine 0.48 L BUN/Creatinine Ratio Glucose 213 H POC Glucose (mg/dL) 232 H Calcium Phosphorus 2.1 L Magnesium AST ALT C-Reactive Protein Total Protein Albumin Tumor Marker AFP Vitamin B12 Folate RBC Folate [facility] 11/12/23 11/12/23 11/13/23 08:04 16:18 00:09 WBC RBC Hgb Hct MCV MCH MCHC Plt Count Immature Gran # Neutrophils # Neutrophils # (Manual) Lymphocytes # (Manual) Monocytes # Monocytes # (Manual) Eosinophils # APTT VBG pCO2 VBG HCO3 Sodium Potassium Chloride Carbon Dioxide Anion Gap BUN Creatinine BUN/Creatinine Ratio Glucose POC Glucose (mg/dL) 193 H 299 H 202 H Calcium Phosphorus Magnesium AST ALT C-Reactive Protein Total Protein Albumin Tumor Marker AFP Vitamin B12 Folate RBC Folate [facility] 11/13/23 11/13/23 11/13/23 05:30 07:06 07:06 WBC 22.1 H RBC 3.30 L Hgb 10.8 L Hct MCV 105.2 H MCH MCHC Plt Count Immature Gran # Neutrophils # 17.3 H Neutrophils # (Manual) Lymphocytes # (Manual) Monocytes # Monocytes # (Manual) Eosinophils # APTT VBG pCO2 VBG HCO3 Sodium Potassium 3.4 L Chloride 113 H Carbon Dioxide 21 L Anion Gap BUN 23 H Creatinine BUN/Creatinine Ratio Glucose 178 H POC Glucose (mg/dL) 213 H Calcium 7.5 L Phosphorus 2.4 L Magnesium AST ALT C-Reactive Protein Total Protein Albumin Tumor Marker AFP Vitamin B12 Folate RBC Folate [facility] 11/13/23 11/13/23 11/14/23 11:31 18:04 00:21 WBC RBC Hgb Hct MCV MCH MCHC Plt Count Immature Gran # Neutrophils # Neutrophils # (Manual) Lymphocytes # (Manual) Monocytes # Monocytes # (Manual) Eosinophils # APTT VBG pCO2 VBG HCO3 Sodium Potassium Chloride Carbon Dioxide Anion Gap BUN Creatinine BUN/Creatinine Ratio Glucose POC Glucose (mg/dL) 210 H 208 H 191 H Calcium Phosphorus Magnesium AST ALT C-Reactive Protein Total Protein Albumin Tumor Marker AFP Vitamin B12 Folate RBC Folate TSH 11/14/23 11/14/23 11/14/23 05:32 07:12 09:03 WBC 26.3 H RBC 3.12 L Hgb 10.3 L Hct 32.3 L MCV 103.3 H MCH MCHC Plt Count Immature Gran # Neutrophils # Neutrophils # (Manual) Lymphocytes # (Manual) Monocytes # Monocytes # (Manual) Eosinophils # APTT VBG pCO2 VBG HCO3 Sodium 131 L Potassium Chloride Carbon Dioxide 20 L Anion Gap BUN 23 H Creatinine 0.46 L BUN/Creatinine Ratio Glucose 201 H POC Glucose (mg/dL) 202 H Calcium 8.1 L Phosphorus Magnesium AST ALT C-Reactive Protein Total Protein Albumin Tumor Marker AFP Vitamin B12 Folate RBC Folate [facility] 11/14/23 11/14/23 11/14/23 12:05 18:00 23:28 WBC RBC Hgb Hct MCV MCH MCHC Plt Count Immature Gran # Neutrophils # Neutrophils # (Manual) Lymphocytes # (Manual) Monocytes # Monocytes # (Manual) Eosinophils # APTT VBG pCO2 VBG HCO3 Sodium Potassium Chloride Carbon Dioxide Anion Gap BUN Creatinine BUN/Creatinine Ratio Glucose POC Glucose (mg/dL) 239 H 204 H 204 H Calcium Phosphorus Magnesium AST ALT C-Reactive Protein Total Protein Albumin Tumor Marker AFP Vitamin B12 Folate RBC Folate [facility] 11/15/23 11/15/23 11/15/23 05:33 08:14 08:14 WBC 20.1 H RBC 3.18 L Hgb 10.2 L Hct 32.5 L MCV 102.1 H MCH MCHC Plt Count Immature Gran # Neutrophils # 14.4 H Neutrophils # (Manual) Lymphocytes # (Manual) Monocytes # Monocytes # (Manual) Eosinophils # APTT VBG pCO2 VBG HCO3 Sodium 133 L Potassium Chloride Carbon Dioxide 20 L Anion Gap BUN Creatinine 0.40 L BUN/Creatinine Ratio Glucose 179 H POC Glucose (mg/dL) 185 H Calcium 8.2 L Phosphorus Magnesium AST ALT C-Reactive Protein 16.9 H Total Protein Albumin Tumor Marker AFP Vitamin B12 Folate RBC Folate [facility] 11/15/23 11/15/23 11/15/23 11:47 16:49 16:49 WBC 20.6 H RBC 3.34 L Hgb 10.7 L Hct MCV 102.5 H MCH MCHC Plt Count Immature Gran # Neutrophils # 14.1 H Neutrophils # (Manual) Lymphocytes # (Manual) Monocytes # 1.1 H Monocytes # (Manual) Eosinophils # APTT >200.0 H* VBG pCO2 VBG HCO3 Sodium Potassium Chloride Carbon Dioxide Anion Gap BUN Creatinine BUN/Creatinine Ratio Glucose POC Glucose (mg/dL) 218 H Calcium Phosphorus Magnesium AST ALT C-Reactive Protein Total Protein Albumin Tumor Marker AFP Vitamin B12 Folate RBC Folate TSH 11/15/23 11/15/23 11/15/23 17:42 22:18 23:07 WBC RBC Hgb Hct MCV MCH MCHC Plt Count Immature Gran # Neutrophils # Neutrophils # (Manual) Lymphocytes # (Manual) Monocytes # Monocytes # (Manual) Eosinophils # APTT 55.0 H VBG pCO2 VBG HCO3 Sodium Potassium Chloride Carbon Dioxide Anion Gap BUN Creatinine BUN/Creatinine Ratio Glucose POC Glucose (mg/dL) 218 H 186 H Calcium Phosphorus Magnesium AST ALT C-Reactive Protein Total Protein Albumin Tumor Marker AFP Vitamin B12 Folate RBC Folate TSH 11/16/23 11/16/23 11/16/23 05:52 06:21 06:21 WBC 19.7 H RBC 3.19 L Hgb 10.2 L Hct 32.5 L MCV 101.8 H MCH MCHC Plt Count Immature Gran # Neutrophils # 13.0 H Neutrophils # (Manual) Lymphocytes # (Manual) Monocytes # 1.1 H Monocytes # (Manual) Eosinophils # APTT VBG pCO2 VBG HCO3 Sodium 133 L Potassium 3.0 L Chloride Carbon Dioxide Anion Gap BUN Creatinine 0.39 L BUN/Creatinine Ratio Glucose 215 H POC Glucose (mg/dL) 201 H Calcium 7.6 L Phosphorus Magnesium AST 73 H ALT 48 H C-Reactive Protein Total Protein 4.2 L Albumin 2.0 L Tumor Marker AFP Vitamin B12 Folate RBC Folate TSH 11/16/23 11/16/23 11/16/23 06:21 11:45 18:02 WBC RBC Hgb Hct MCV MCH MCHC Plt Count Immature Gran # Neutrophils # Neutrophils # (Manual) Lymphocytes # (Manual) Monocytes # Monocytes # (Manual) Eosinophils # APTT 51.3 H VBG pCO2 VBG HCO3 Sodium Potassium Chloride Carbon Dioxide Anion Gap BUN Creatinine BUN/Creatinine Ratio Glucose POC Glucose (mg/dL) 253 H 249 H Calcium Phosphorus Magnesium AST ALT C-Reactive Protein Total Protein Albumin Tumor Marker AFP Vitamin B12 Folate RBC Folate TSH 11/16/23 11/17/23 11/17/23 23:13 05:59 08:24 WBC RBC Hgb Hct MCV MCH MCHC Plt Count Immature Gran # Neutrophils # Neutrophils # (Manual) Lymphocytes # (Manual) Monocytes # Monocytes # (Manual) Eosinophils # APTT VBG pCO2 VBG HCO3 Sodium 133 L Potassium 3.4 L Chloride Carbon Dioxide Anion Gap BUN Creatinine 0.39 L BUN/Creatinine Ratio Glucose 195 H POC Glucose (mg/dL) 235 H 153 H Calcium 8.0 L Phosphorus Magnesium AST 89 H ALT 80 H C-Reactive Protein Total Protein 4.6 L Albumin 2.2 L Tumor Marker AFP Vitamin B12 Folate RBC Folate [facility] 11/17/23 11/17/23 11/17/23 08:24 08:24 12:12 WBC 26.9 H RBC 3.54 L Hgb 11.3 L Hct MCV 103.1 H MCH MCHC Plt Count Immature Gran # Neutrophils # Neutrophils # (Manual) Lymphocytes # (Manual) Monocytes # Monocytes # (Manual) Eosinophils # APTT 40.4 H VBG pCO2 VBG HCO3 Sodium Potassium Chloride Carbon Dioxide Anion Gap BUN Creatinine BUN/Creatinine Ratio Glucose POC Glucose (mg/dL) 205 H Calcium Phosphorus Magnesium AST ALT C-Reactive Protein Total Protein Albumin Tumor Marker AFP Vitamin B12 Folate RBC Folate [facility] 11/17/23 11/17/23 11/17/23 14:29 18:19 23:23 WBC RBC Hgb Hct MCV MCH MCHC Plt Count Immature Gran # Neutrophils # Neutrophils # (Manual) Lymphocytes # (Manual) Monocytes # Monocytes # (Manual) Eosinophils # APTT 45.6 H VBG pCO2 VBG HCO3 Sodium Potassium Chloride Carbon Dioxide Anion Gap BUN Creatinine BUN/Creatinine Ratio Glucose POC Glucose (mg/dL) 189 H 152 H Calcium Phosphorus Magnesium AST ALT C-Reactive Protein Total Protein Albumin Tumor Marker AFP Vitamin B12 Folate RBC Folate [facility] 11/18/23 11/18/23 11/18/23 05:58 07:30 07:30 WBC RBC Hgb Hct MCV MCH MCHC Plt Count Immature Gran # Neutrophils # Neutrophils # (Manual) Lymphocytes # (Manual) Monocytes # Monocytes # (Manual) Eosinophils # APTT 41.3 H VBG pCO2 VBG HCO3 Sodium 130 L Potassium Chloride Carbon Dioxide Anion Gap BUN Creatinine 0.38 L BUN/Creatinine Ratio Glucose 147 H POC Glucose (mg/dL) 154 H Calcium 7.9 L Phosphorus Magnesium AST 67 H ALT 57 H C-Reactive Protein Total Protein 4.5 L Albumin 2.2 L Tumor Marker AFP Vitamin B12 Folate RBC Folate [facility] 11/18/23 11/18/23 11/18/23 07:30 11:44 16:16 WBC 31.9 H RBC 3.26 L Hgb 10.5 L Hct 32.5 L MCV MCH MCHC Plt Count Immature Gran # Neutrophils # Neutrophils # (Manual) 24.88 H Lymphocytes # (Manual) 6.38 H Monocytes # Monocytes # (Manual) Eosinophils # APTT 47.6 H VBG pCO2 VBG HCO3 Sodium Potassium Chloride Carbon Dioxide Anion Gap BUN Creatinine BUN/Creatinine Ratio Glucose POC Glucose (mg/dL) 173 H Calcium Phosphorus Magnesium AST ALT C-Reactive Protein Total Protein Albumin Tumor Marker AFP Vitamin B12 Folate RBC Folate [facility] 11/18/23 11/18/23 11/19/23 17:02 23:13 05:50 WBC RBC Hgb Hct MCV MCH MCHC Plt Count Immature Gran # Neutrophils # Neutrophils # (Manual) Lymphocytes # (Manual) Monocytes # Monocytes # (Manual) Eosinophils # APTT VBG pCO2 VBG HCO3 Sodium Potassium Chloride Carbon Dioxide Anion Gap BUN Creatinine BUN/Creatinine Ratio Glucose POC Glucose (mg/dL) 144 H 161 H 199 H Calcium Phosphorus Magnesium AST ALT C-Reactive Protein Total Protein Albumin Tumor Marker AFP Vitamin B12 Folate RBC Folate [facility] 11/19/23 11/19/23 11/19/23 06:47 06:47 06:47 WBC 27.8 H RBC 3.02 L Hgb 9.8 L Hct 30.1 L MCV MCH MCHC Plt Count Immature Gran # Neutrophils # Neutrophils # (Manual) 22.24 H Lymphocytes # (Manual) Monocytes # Monocytes # (Manual) 1.39 H Eosinophils # APTT 45.7 H VBG pCO2 VBG HCO3 Sodium 131 L Potassium Chloride Carbon Dioxide Anion Gap BUN Creatinine 0.41 L BUN/Creatinine Ratio Glucose 155 H POC Glucose (mg/dL) Calcium 7.9 L Phosphorus Magnesium AST 58 H ALT 47 H C-Reactive Protein Total Protein 4.4 L Albumin 2.1 L Tumor Marker AFP Vitamin B12 Folate RBC Folate [facility] 11/19/23 12:59 WBC RBC Hgb Hct MCV MCH MCHC Plt Count Immature Gran # Neutrophils # Neutrophils # (Manual) Lymphocytes # (Manual) Monocytes # Monocytes # (Manual) Eosinophils # APTT VBG pCO2 VBG HCO3 Sodium Potassium Chloride Carbon Dioxide Anion Gap BUN Creatinine BUN/Creatinine Ratio Glucose POC Glucose (mg/dL) 167 H Calcium Phosphorus Magnesium AST ALT C-Reactive Protein Total Protein Albumin Tumor Marker AFP Vitamin B12 Folate RBC Folate TSH - Diagnostic Findings Chest x-ray: image reviewed CT scan - chest: image reviewed Assessment and Plan Assessment: Small bilateral pleural effusions, and a patient on room air, without any shortness of breath. Multiple other medical problems, as previously delineated, including neuroendocrine tumor. history of constipation and abdominal pain. History of irritable bowel syndrome. History of thyroid disease. History of hyperlipidemia. History of hypertension. She is atrial fibrillation. Plan: Plan dated 11/19/2023. The patient's doing relatively well from the pulmonary standpoint. She's on room air. The patient did not have any shortness of breath. The results of the ultrasound are reviewed. The left sided pleural effusion is very small, and the right-sided effusion, is a bit lethargic, but mobile lung tissue very close to the surface. Hence, no thoracentesis is necessary at this time. Additional recommendations and suggestions are forthcoming. We will follow as needed. Time with Patient: Greater than 30
--- NOTE | 2023-11-19 15:50 | P.PN ---
Subjective Progress Note Date: 11/19/23 Principal diagnosis: Reason for follow-up is leukocytosis Patient is a 88-year-old female with a past medical history significant for hypertension hyperlipidemia atrial fibrillation history of breast cancer chronic back pain presenting to the hospital for evaluation ab dominal pain and constipation has been diagnosed with a large bowel obstruction and concern for possible liver mets did have persistent worsening white count prompting this consultation.Patient is status post expiratory laparotomy with sigmoid resection for large bowel obstruction and descending colostomy open cholecystectomy, peritoneal large liver biopsy procedure completed on 11/12/2023 On today's evaluation that is 11/19/2023, patient has been afebrile, patient is breathing comfortably and is currently on room air, patient denies having any significant cough no chest pain shortness of breath, patient but no vomiting still having abdominal pain though controlled with the pain medication, no new symptoms. Patient white count is down to 27.8, creatinine 0.41 patient did have a repeat CT abdominal pelvis which did show some progression of metastatic disease to the liver colonic wall thickening Objective - Vital Signs Vital signs: Vital Signs Temp 98.3 F 11/19/23 12:13 Pulse 86 11/19/23 12:13 Resp 16 11/19/23 12:13 BP 128/70 11/19/23 12:13 Pulse Ox 98 11/19/23 12:13 FiO2 Intake & Output 11/18/23 11/19/23 11/19/23 18:59 06:59 18:59 Intake Total 1761.000 131.915 10 Output Total 950 925 Balance 811.000 -793.085 10 Weight 79.8 kg 76.8 kg Intake: IV 10 Invasive Line 7 10 Intake, IV Titration 1319.000 131.915 0 Amount Heparin Sod,Pork in 0.45% 250.000 131.915 0 NaCl 25,000 unit In 0.45 % NaCl 1 250ml.bag @ 12 UNITS/KG/HR 8.94 mls/hr IV .Q24H [facility] Rx#: [id number] Mvi, Adult No.4 with Vit 1069 K 10 ml Trace (Conc-1Ml/ Dose) 1 ml Calcium Gluconate 1 gm Sodium Acetate 70 meq Magnesium Sulfate gm 0.5 gm Potassium Phosphate 21 mmol Potassium Chloride 10 meq In Amino Acids 5 % /Dextrose 20 % 1,000 ml @ 52 mls/hr IV .[id number] [facility] Rx#:[id number] Oral 442 Output: Urine 600 Stool 950 325 Other: Voiding Method External Catheter External Catheter External Catheter # Voids 4 - Exam GENERAL DESCRIPTION: An elderly female lying in bed in no distress RESPIRATORY SYSTEM: Unlabored breathing , decreased breath sounds at bases HEART: S1 S2 regular rate and rhythm , ABDOMEN: Soft , mild distention EXTREMITIES: No edema feet - Labs CBC & Chem 7: 11/19/23 06:47 11/19/23 06:47 Labs: Abnormal Lab Results - Last 24 Hours (Table) 11/18/23 11/18/23 11/18/23 Range/Units 16:16 17:02 23:13 WBC (3.8-10.6) k/uL RBC (3.80-5.40) m/uL Hgb (11.4-16.0) gm/dL Hct (34.0-46.0) % Neutrophils # (Manual) (1.3-7.7) k/uL Monocytes # (Manual) (0-1.0) k/uL APTT 47.6 H (22.0-30.0) sec Sodium (137-145) mmol/L Creatinine (0.52-1.04) mg/dL Glucose (74-99) mg/dL POC Glucose (mg/dL) 144 H 161 H (70-110) mg/dL Calcium (8.4-10.2) mg/dL AST (14-36) U/L ALT (4-34) U/L Total Protein (6.3-8.2) g/dL Albumin (3.5-5.0) g/dL 11/19/23 11/19/23 11/19/23 Range/Units 05:50 06:47 06:47 WBC (3.8-10.6) k/uL RBC (3.80-5.40) m/uL Hgb (11.4-16.0) gm/dL Hct (34.0-46.0) % Neutrophils # (Manual) (1.3-7.7) k/uL Monocytes # (Manual) (0-1.0) k/uL APTT 45.7 H (22.0-30.0) sec Sodium 131 L (137-145) mmol/L Creatinine 0.41 L (0.52-1.04) mg/dL Glucose 155 H (74-99) mg/dL POC Glucose (mg/dL) 199 H (70-110) mg/dL Calcium 7.9 L (8.4-10.2) mg/dL AST 58 H (14-36) U/L ALT 47 H (4-34) U/L Total Protein 4.4 L (6.3-8.2) g/dL Albumin 2.1 L (3.5-5.0) g/dL 11/19/23 11/19/23 Range/Units 06:47 12:59 WBC 27.8 H (3.8-10.6) k/uL RBC 3.02 L (3.80-5.40) m/uL Hgb 9.8 L (11.4-16.0) gm/dL Hct 30.1 L (34.0-46.0) % Neutrophils # (Manual) 22.24 H (1.3-7.7) k/uL Monocytes # (Manual) 1.39 H (0-1.0) k/uL APTT (22.0-30.0) sec Sodium (137-145) mmol/L Creatinine (0.52-1.04) mg/dL Glucose (74-99) mg/dL POC Glucose (mg/dL) 167 H (70-110) mg/dL Calcium (8.4-10.2) mg/dL AST (14-36) U/L ALT (4-34) U/L Total Protein (6.3-8.2) g/dL Albumin (3.5-5.0) g/dL Microbiology - Last 24 Hours (Table) 11/17/23 14:37 Blood Culture - Preliminary Blood Assessment and Plan (1) Leukocytosis Current Visit: Yes Status: Acute Code(s): D72.829 - ELEVATED WHITE BLOOD CELL COUNT, UNSPECIFIED SNOMED Code(s): 592586673 (2) Partial bowel obstruction Current Visit: Yes Status: Acute Priority: High Code(s): K56.600 - PARTIAL INTESTINAL OBSTRUCTION, UNSPECIFIED TO CAUSE SNOMED Code(s): 01928847503565583 Plan: 1patient with leukocytosis which is likely multifactorial in this patient admitted to hospital with abdominal pain and constipation has been diagnosed with a large bowel obstruction with a question of possible mass versus colitis mass may be favored as the patient did have multiple lesion in the liver concerning for metastatic disease with worsening of the white count despite being on Rocephin and Flagyl we need to broaden her antibiotic coverage 2-blood cultures has been repeated currently pending 3-patient is status post extensive abdominal surgery, abdominal cultures now growing Enterococcus faecalis penicillin sensitive and Bacteroides species 4patient did have repeat CT abdominal pelvis that has been suggestive of pro gression of her liver metastasis may be contributing to some of this elevated white count per discussion with the surgery there was a possible necrotic tumor to the liver 5the patient white count has came down well continue with Unasyn Flagyl and Eraxis Daughter at the bedside questions were answered Dictation was produced using [employer] dictation software. please excuse any grammatical, word or spelling errors. Time with Patient: Less than 30
--- NOTE | 2023-11-19 16:38 | P.PN ---
Subjective Progress Note Date: 11/19/23 Subjective: Patient seen and examined at bedside. No acute events overnight. She is s/p open sigmoid colectomy with colostomy and cholecystectomy. Her pain levels are adequate. Still reports mild swelling in her hands and feet. Having adequate output from ostomy, appears necrotic. Slightly tachycardic this morning. Pertinent positives and negatives as discussed above, a complete review of systems was performed and all other systems are negative. Vitals: Signs Reviewed Physical Exam: General: nontoxic, no distress, appears at stated age Derm: warm, dry, intact Head: atraumatic, normocephalic, symmetric Eyes: EOMI, no lid lag, anicteric sclera Mouth: no lip lesion, mucus membranes moist Cardiovascular: S1 S2 reg, no murmur, rubs, or gallops Lungs: CTA bilateral, no rhonchi, no rales, no accessory muscle use Abdominal: distended, tender to palpataion, no appreciable organomegaly, ostomy in place, stoma slightly dusky, necrotic Extremities: no gross muscle atrophy, no edema, no contractures Neuro: Alert, Oriented, CNII-XII grossly intact Psych: well appearing, appropriate affect Data Received Today: Pertinent Labs: WBC 27.8, hemoglobin 9.8, platelet 415, sodium 131, potassium 3.5, creatinine 0.41, glucose range 167-199. APTT 43.4 Imaging: chest ultrasound: left small to moderate pleural effusion Assessment and Plan: 88-year-old female with past medical history of IBS, hypothyroid, hypertension, breast cancer, and A-fib presents with abdominal pain associated with constipation. S/p sigmoid colectomy with costomy and cholecystectomy Partial large bowel obstruction due to sigmoid mass s/p sigmoid colectomy with costomy and cholecystectomy Metastatic well-differentiated neuroendocrine tumor Postop day 7. IV antibiotics as below. Follow pathology report (peritoneal ascites, gall bladder, liver biopsy, sigmoid mass). TPN for nutrition started 11/08. Low fiber diet started 11/12. Morphine 2 mg ivp q4h prn for severe pain, monitor for sedation Oncology following, management as below MRI Liver results: Multiple liver lesions concerning for metastatic disease possibly gastrointestinal in origin given prior CT 11/05/2023. Finding could be secondary to mesenteric mass with tethering multiple loops of bowel Pathology report: Liver and colon biopsies positive for metastatic well- differentiated neuroendocrine tumor. Treatment on hold for 4 to 6 weeks status post surgery. Peritoneal fluid cytology negative for malignancy Will obtain PET scan outpatient Serotonin, chromogranin A, and 24-hour urine HIAA pending discussed management with surgery, recommending further optimization of fluid status and protein calorie malnutrition. Surgical procedure planned for possibly Wednesday. Small bilateral pleural effusion - chest ultrasound: left small to moderate pleural effusion - pulmonology note reviewd. no thoracentesis necessary Atrial fibrillation w/ rvr Hypomagnesemia, resolved Monitoring on telemetry Cardiology following, Continue Metoprolol 100 mg p.o. twice daily and 50 mg daily at bedtime for rate control. continue amiodarone 200 mg daily. Will monitor heart rate, under 120 bpm is acceptable. currently on heparin drip, monitor APTT, daily CBC Keep K > 4, magnesium > 2 Will monitor potassium and magnesium. Follow-up BMP Hypoalbuminemia Anasarca Heart failure with reduced ejection fraction 35 to 40%, not in exacerbation Hyponatremia, likely hypervolemic Albumin 2.0, total protein 4.2 Likely due to malnutrition. Patient on TPN Will encourage to increase oral intake Ct IV Lasix 40 mg daily for 2 more days per cardiology Results on echocardiogram doppler showed left ventricular ejection fraction 35 to 40%. Mildly increased left ventricular wall thickness Mild mitral regurgitation. Mild aortic stenosis. No pericardial effusion. - Surgery note reviewed. Advancing to high protein/high calorie diet such as Ensure max 30 g 2-3 times daily., planning to decrease TPN Leukocytosis, neutrophilic predominance Infectious versus reactive ID discontinued, IV ceftriaxone 2gm. Continue Zosyn 4.375g IV TID on 11/09 by ID., Continue oral Flagyl 500 3 times daily. Peritoneal cultures: anaerobic culture: bacteroides thetaiotaomicron beta- lactamase postive; aerobic culture: Enterococcus faecium ID note reviewed, patient is to continue with Unasyn, Flagyl, and Eraxis 100 mg IV push daily. Repeat CBC Hyperglycemia Hypoglycemia, resolved continue Levemir 15 unit SQ daily, for better glycemic control. 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 Discussed with the resident and agree with the residents finding and plan as documented in the resident's note. Changes highlighted in blue font. Objective - Vital Signs Vital signs: Vital Signs Temp 97.3 F L 11/19/23 15:14 Pulse 105 H 11/19/23 15:14 Resp 18 11/19/23 15:14 BP 111/71 11/19/23 15:14 Pulse Ox 95 11/19/23 15:14 FiO2 Intake & Output 11/18/23 11/19/23 11/19/23 18:59 06:59 18:59 Intake Total 1761.000 131.915 500 Output Total 170 766 5398 Balance 811.000 -793.085 -1725 Weight 79.8 kg 76.8 kg Intake: IV 20 Invasive Line 7 20 Intake, IV Titration 1319.000 131.915 0 Amount Heparin Sod,Pork in 0.45% 250.000 131.915 0 NaCl 25,000 unit In 0.45 % NaCl 1 250ml.bag @ 12 UNITS/KG/HR 8.94 mls/hr IV .Q24H [facility] Rx#: [id number] Mvi, Adult No.4 with Vit 1069 K 10 ml Trace (Conc-1Ml/ Dose) 1 ml Calcium Gluconate 1 gm Sodium Acetate 70 meq Magnesium Sulfate gm 0.5 gm Potassium Phosphate 21 mmol Potassium Chloride 10 meq In Amino Acids 5 % /Dextrose 20 % 1,000 ml @ 52 mls/hr IV .[id number] [facility] Rx#:[id number] Oral 442 480 Output: Urine 600 2150 Stool 950 325 75 Other: Voiding Method External Catheter External Catheter External Catheter # Voids 4 - Labs CBC & Chem 7: 11/19/23 06:47 11/19/23 06:47 Labs: Abnormal Lab Results - Last 24 Hours (Table) 11/17/23 11/18/23 11/18/23 Range/Units 17:42 16:16 17:02 WBC (3.8-10.6) k/uL RBC (3.80-5.40) m/uL Hgb (11.4-16.0) gm/dL Hct (34.0-46.0) % Neutrophils # (Manual) (1.3-7.7) k/uL Monocytes # (Manual) (0-1.0) k/uL APTT 47.6 H (22.0-30.0) sec Sodium (137-145) mmol/L Creatinine (0.52-1.04) mg/dL Glucose (74-99) mg/dL POC Glucose (mg/dL) 144 H (70-110) mg/dL Calcium (8.4-10.2) mg/dL AST (14-36) U/L ALT (4-34) U/L Total Protein (6.3-8.2) g/dL Albumin (3.5-5.0) g/dL Chromogranin A 1939 H (0-187) ng/mL 11/18/23 11/19/23 11/19/23 Range/Units 23:13 05:50 06:47 WBC (3.8-10.6) k/uL RBC (3.80-5.40) m/uL Hgb (11.4-16.0) gm/dL Hct (34.0-46.0) % Neutrophils # (Manual) (1.3-7.7) k/uL Monocytes # (Manual) (0-1.0) k/uL APTT (22.0-30.0) sec Sodium 131 L (137-145) mmol/L Creatinine 0.41 L (0.52-1.04) mg/dL Glucose 155 H (74-99) mg/dL POC Glucose (mg/dL) 161 H 199 H (70-110) mg/dL Calcium 7.9 L (8.4-10.2) mg/dL AST 58 H (14-36) U/L ALT 47 H (4-34) U/L Total Protein 4.4 L (6.3-8.2) g/dL Albumin 2.1 L (3.5-5.0) g/dL Chromogranin A (0-187) ng/mL 11/19/23 11/19/23 11/19/23 Range/Units 06:47 06:47 12:59 WBC 27.8 H (3.8-10.6) k/uL RBC 3.02 L (3.80-5.40) m/uL Hgb 9.8 L (11.4-16.0) gm/dL Hct 30.1 L (34.0-46.0) % Neutrophils # (Manual) 22.24 H (1.3-7.7) k/uL Monocytes # (Manual) 1.39 H (0-1.0) k/uL APTT 45.7 H (22.0-30.0) sec Sodium (137-145) mmol/L Creatinine (0.52-1.04) mg/dL Glucose (74-99) mg/dL POC Glucose (mg/dL) 167 H (70-110) mg/dL Calcium (8.4-10.2) mg/dL AST (14-36) U/L ALT (4-34) U/L Total Protein (6.3-8.2) g/dL Albumin (3.5-5.0) g/dL Chromogranin A (0-187) ng/mL Microbiology - Last 24 Hours (Table) 11/17/23 14:37 Blood Culture - Preliminary Blood
[2023-11-19] MEDS: METOPROLOL TARTRATE 50 MG TAB PO SCH ×2 (17:02→20:59)
[2023-11-19 18:09] LABS: Glucose,Whole Blood 155 mg/dL (70-110)
--- NOTE | 2023-11-19 19:17 | P.PN ---
Progress Note - Text Patient is resting comfortably in bed. Remains in atrial fibrillation heart rates 90-110 beats a minute Denies any undue shortness of breath Denies any chest discomfort Discussed with Dr. Cedeno Likely reversal of colostomy on Wednesday Until then IV heparin to continue From a cardiovascular standpoint I will increase the dose of metoprolol to 3 times a day, 100 mg, 100 mg and 50 mg For rate control of atrial fibrillation
[2023-11-19 23:33] LABS: Glucose,Whole Blood 162 mg/dL (70-110)
[2023-11-20 06:00] LABS: Glucose,Whole Blood 183 mg/dL (70-110)
[2023-11-20 06:29] LABS: Glucose,Whole Blood 185 mg/dL (70-110)
[2023-11-20 07:33] LABS: Basophils # (A) 0.1 k/uL (0-0.2); Basophils % (A) 0 %; Eosinophils # (A) 0.2 k/uL (0-0.7); Eosinophils % (A) 1 %; HCT 30.2 % (34.0-46.0); HGB 9.6 gm/dL (11.4-16.0); Hypochromasia Slight; Lymphocytes # (A) 4.8 k/uL (1.0-4.8); Lymphocytes % (A) 19 %; MCH 31.8 pg (25.0-35.0); MCHC 31.8 g/dL (31.0-37.0); MCV 100.1 fL (80.0-100.0); Mean Platelet Volume 8.4; Monocytes # (A) 0.8 k/uL (0-1.0); Monocytes % (A) 3 %; Neutrophils # (A) 18.7 k/uL (1.3-7.7); Neutrophils % (A) 75 %; Platelet Count 428 k/uL (150-450); RBC 3.02 m/uL (3.80-5.40); RDW 13.8 % (11.5-15.5); WBC 24.9 k/uL (3.8-10.6)
[2023-11-20 07:41] LABS: ALT 41 U/L (4-34); AST 49 U/L (14-36); African American GFR (CKD) >90 (>60 ml/min/1.73 sqM); Alkaline Phosphatase 95 U/L (38-126); Anion Gap 3 mmol/L; Blood Urea Nitrogen 19 mg/dL (7-17); Carbon Dioxide 29 mmol/L (22-30); Chloride 100 mmol/L (98-107); Glucose 171 mg/dL (74-99); Non-African American GFR(CKD) 89 (>60 ml/min/1.73 sqM); Phosphorus 3.4 mg/dL (2.5-4.5); Potassium 3.4 mmol/L (3.5-5.1); Sodium 132 mmol/L (137-145); Total Bilirubin 0.4 mg/dL (0.2-1.3); Total Protein 4.2 g/dL (6.3-8.2)
[2023-11-20] MEDS: POTASSIUM CHLORIDE 20 MEQ in WATER FOR INJECTION 1 100ML.BAG IVPB SCH (08:44)
[2023-11-20] MEDS ORDERED: POTASSIUM CHLORIDE ER 20 MEQ TAB.ER PO STA (09:07)
[2023-11-20 11:50] LABS: Glucose,Whole Blood 146 mg/dL (70-110)
--- NOTE | 2023-11-20 12:01 | P.PN ---
Subjective Progress Note Date: 11/20/23 Subjective: Patient seen and examined at bedside. No acute events overnight. She is s/p open sigmoid colectomy with colostomy and cholecystectomy. Her pain levels are adequate. Still reports mild swelling in her hands and feet. Having adequate output from ostomy, appears necrotic. Slightly tachycardic this morning. Been tolerating oral solids and Ensure. Pertinent positives and negatives as discussed above, a complete review of systems was performed and all other systems are negative. Vitals: Signs Reviewed Physical Exam: General: nontoxic, no distress, appears at stated age Derm: warm, dry, intact Head: atraumatic, normocephalic, symmetric Eyes: EOMI, no lid lag, anicteric sclera Mouth: no lip lesion, mucus membranes moist Cardiovascular: S1 S2 reg, no murmur, rubs, or gallops Lungs: CTA bilateral, no rhonchi, no rales, no accessory muscle use Abdominal: distended, tender to palpataion, no appreciable organomegaly, ostomy in place, stoma slightly dusky, necrotic Extremities: no gross muscle atrophy, no edema, no contractures Neuro: Alert, Oriented, CNII-XII grossly intact Psych: well appearing, appropriate affect Data Received Today: Pertinent Labs: WBC 24.9, hemoglobin 9.6, sodium 132, potassium 3.4, creatinine 0.47, glucose range 162-185. APTT 52.4, Chromogranin A 1939, total protein 4.2, albumin 2.0 Imaging: No new imaging Assessment and Plan: 88-year-old female with past medical history of IBS, hypothyroid, hypertension, breast cancer, and A-fib presents with abdominal pain associated with constipation. S/p sigmoid colectomy with costomy and cholecystectomy Partial large bowel obstruction due to sigmoid mass s/p sigmoid colectomy with costomy and cholecystectomy Metastatic well-differentiated neuroendocrine tumor Postop day 8. IV antibiotics as below. Follow pathology report (peritoneal ascites, gall bladder, liver biopsy, sigmoid mass). TPN for nutrition started 11/08. Low fiber diet started 11/12. Morphine 2 mg ivp q4h prn for severe pain, monitor for sedation Oncology following, management as below MRI Liver results: Multiple liver lesions concerning for metastatic disease possibly gastrointestinal in origin given prior CT 11/05/2023. Finding could be secondary to mesenteric mass with tethering multiple loops of bowel Pathology report: Liver and colon biopsies positive for metastatic well- differentiated neuroendocrine tumor. Treatment on hold for 4 to 6 weeks status post surgery. Peritoneal fluid cytology negative for malignancy Will obtain PET scan outpatient Serotonin, and 24-hour urine HIAA pending Chromogranin A 193 Surgery following, recommending further optimization of fluid status and protein calorie malnutrition. Surgical procedure planned for possibly Wednesday. Small bilateral pleural effusion - chest ultrasound: left small to moderate pleural effusion - pulmonology note reviewed. no thoracentesis necessary Atrial fibrillation w/ rvr Hypomagnesemia, resolved Monitoring on telemetry. Cardiology note reviewed. Continue Metoprolol 100 mg PO BID and 50 mg daily at bedtime for rate control. continue amiodarone 200 mg daily. Will monitor heart rate, under 120 bpm is acceptable. currently on heparin drip, monitor APTT, daily CBC Keep K > 4, magnesium > 2 Will monitor potassium and magnesium. Follow-up BMP Hypoalbuminemia Anasarca Heart failure with reduced ejection fraction 35 to 40%, not in exacerbation Hyponatremia, likely hypervolemic Albumin 2.0, total protein 4.2 Likely due to malnutrition. Patient on TPN Will encourage to increase oral intake Ct IV Lasix 40 mg daily for 2 more days per cardiology Results on echocardiogram doppler showed left ventricular ejection fraction 35 to 40%. Mildly increased left ventricular wall thickness Mild mitral regurgitation. Mild aortic stenosis. No pericardial effusion. - Surgery following, advancing to high protein/high calorie diet such as Ensure max 30 g 2-3 times daily., planning to decrease TPN. Leukocytosis, neutrophilic predominance Infectious versus reactive ID discontinued, IV ceftriaxone 2gm. Continue Zosyn 4.375g IV TID on 11/09 by ID., Continue oral Flagyl 500 3 times daily. Peritoneal cultures: anaerobic culture: bacteroides thetaiotaomicron beta- lactamase postive; aerobic culture: Enterococcus faecium ID following, patient is to continue with Unasyn, Flagyl, and Eraxis 100 mg IV push daily. Repeat CBC Hyperglycemia Hypoglycemia, resolved continue Levemir 15 unit SQ daily, for better glycemic control. 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 Discussed with the resident and agree with the residents finding and plan as documented in the resident's note. Changes highlighted in blue font. Objective - Vital Signs Vital signs: Vital Signs Temp 98.1 F 11/19/23 20:00 Pulse 83 11/20/23 04:00 Resp 18 11/20/23 04:00 BP 114/67 11/20/23 04:00 Pulse Ox 96 11/20/23 04:00 FiO2 Intake & Output 11/19/23 11/19/23 11/20/23 06:59 18:59 06:59 Intake Total 026.180 7363.831 1094 Output Total 925 2675 700 Balance -793.085 -1430.169 394 Weight 76.8 kg 79 kg Intake: IV 140 20 .9@10 120 Invasive Line 7 20 20 Intake, IV Titration 131.915 405.473 7889 Amount Ampicillin-Sulbactam 3 gm 200 In Sodium Chloride 0.9% 100 ml @ 200 mls/hr IVPB Q6HR [facility] Rx#:[id number] Anidulafungin 100 mg In 100 Sodium Chloride 0.9% 100 ml @ 84 mls/hr IVPB DAILY [facility] Rx#:[id number] Heparin Sod,Pork in 0.45% 131.915 84.831 NaCl 25,000 unit In 0.45 % NaCl 1 250ml.bag @ 12 UNITS/KG/HR 8.94 mls/hr IV .Q24H [facility] Rx#: [id number] Mvi, Adult No.4 with Vit 1074 K 10 ml Trace (Conc-1Ml/ Dose) 1 ml Calcium Gluconate 1 gm Sodium Acetate 80 meq Magnesium Sulfate gm 0.5 gm Potassium Phosphate 21 mmol Potassium Chloride 10 meq In Amino Acids 5 % /Dextrose 20 % 1,000 ml @ 52 mls/hr IV .[id number] [facility] Rx#:[id number] Oral 720 Output: Urine 600 2150 500 Stool 325 525 200 Other: Voiding Method External Catheter External Catheter External Catheter - Labs CBC & Chem 7: 11/20/23 07:11 11/20/23 07:11 Labs: Abnormal Lab Results - Last 24 Hours (Table) 11/17/23 11/19/23 11/19/23 Range/Units 17:42 06:47 06:47 WBC (3.8-10.6) k/uL RBC (3.80-5.40) m/uL Hgb (11.4-16.0) gm/dL Hct (34.0-46.0) % Neutrophils # (Manual) (1.3-7.7) k/uL Monocytes # (Manual) (0-1.0) k/uL APTT 45.7 H (22.0-30.0) sec Sodium 131 L (137-145) mmol/L Creatinine 0.41 L (0.52-1.04) mg/dL Glucose 155 H (74-99) mg/dL POC Glucose (mg/dL) (70-110) mg/dL Calcium 7.9 L (8.4-10.2) mg/dL AST 58 H (14-36) U/L ALT 47 H (4-34) U/L Total Protein 4.4 L (6.3-8.2) g/dL Albumin 2.1 L (3.5-5.0) g/dL Chromogranin A 1939 H (0-187) ng/mL 11/19/23 11/19/23 11/19/23 Range/Units 06:47 12:59 15:54 WBC 27.8 H (3.8-10.6) k/uL RBC 3.02 L (3.80-5.40) m/uL Hgb 9.8 L (11.4-16.0) gm/dL Hct 30.1 L (34.0-46.0) % Neutrophils # (Manual) 22.24 H (1.3-7.7) k/uL Monocytes # (Manual) 1.39 H (0-1.0) k/uL APTT 43.4 H (22.0-30.0) sec Sodium (137-145) mmol/L Creatinine (0.52-1.04) mg/dL Glucose (74-99) mg/dL POC Glucose (mg/dL) 167 H (70-110) mg/dL Calcium (8.4-10.2) mg/dL AST (14-36) U/L ALT (4-34) U/L Total Protein (6.3-8.2) g/dL Albumin (3.5-5.0) g/dL Chromogranin A (0-187) ng/mL 11/19/23 11/19/23 11/19/23 Range/Units 18:08 21:39 23:32 WBC (3.8-10.6) k/uL RBC (3.80-5.40) m/uL Hgb (11.4-16.0) gm/dL Hct (34.0-46.0) % Neutrophils # (Manual) (1.3-7.7) k/uL Monocytes # (Manual) (0-1.0) k/uL APTT 48.6 H (22.0-30.0) sec Sodium (137-145) mmol/L Creatinine (0.52-1.04) mg/dL Glucose (74-99) mg/dL POC Glucose (mg/dL) 155 H 162 H (70-110) mg/dL Calcium (8.4-10.2) mg/dL AST (14-36) U/L ALT (4-34) U/L Total Protein (6.3-8.2) g/dL Albumin (3.5-5.0) g/dL Chromogranin A (0-187) ng/mL 11/20/23 11/20/23 Range/Units 05:59 06:27 WBC (3.8-10.6) k/uL RBC (3.80-5.40) m/uL Hgb (11.4-16.0) gm/dL Hct (34.0-46.0) % Neutrophils # (Manual) (1.3-7.7) k/uL Monocytes # (Manual) (0-1.0) k/uL APTT (22.0-30.0) sec Sodium (137-145) mmol/L Creatinine (0.52-1.04) mg/dL Glucose (74-99) mg/dL POC Glucose (mg/dL) 183 H 185 H (70-110) mg/dL Calcium (8.4-10.2) mg/dL AST (14-36) U/L ALT (4-34) U/L Total Protein (6.3-8.2) g/dL Albumin (3.5-5.0) g/dL Chromogranin A (0-187) ng/mL Microbiology - Last 24 Hours (Table) 11/17/23 14:37 Blood Culture - Preliminary Blood
--- NOTE | 2023-11-20 12:41 | P.PN ---
Subjective HISTORY OF PRESENT ILLNESS: This is a 88-year-old female with a past medical history significant for atrial fibrillation, SVT, hypertension, hyperlipidemia, and hypothyroidism. Patient follows in the office with Dr. Holloway. We have been asked to see the patient in consultation for cardiac risk assessment. Patient examined at the bedside. Patient states she presented to the hospital after not having a bowel movement for 11 days. She has been seen by general surgery and is scheduled to undergo open sigmoid colectomy with colostomy on 11/11/[address] Cedeno. Patient currently denies any chest pain or pressure. She denies any shortness of breath. Apparently, overnight the patient went tachycardic and she was prescribed IV heparin and IV amiodarone and transferred to [facility]. She converted to sinus mechanism and is maintaining sinus mechanism at the time of examination. DIAGNOSTICS: - Telemetry currently reveals sinus mechanism - Laboratory data: WBC 17.7. Hemoglobin 11.9. Platelet count 325. Sodium 139. Potassium 3.9. BUN 16. Creatinine 0.7. TSH 18.3. Free T41.67. - Current home cardiac medications include amiodarone 200 mg daily, metoprolol tartrate 25 mg twice a day, Lipitor 20 mg daily, Eliquis 5 mg twice a day. - Most recent echocardiogram obtained in July 2022 revealed ejection fraction 52%, mild aortic stenosis, mild mitral regurgitation, mild tricuspid regurgitation 11/09/2023 Patient examined this morning at the bedside. Patient currently denies chest pain or pressure. She denies shortness of breath. She remains in atrial fibrillation with decently controlled ventricular rates. Echocardiogram c ompleted revealing ejection fraction 35 to 40%, mild MR, mild 11/10/2023 Patient examined this morning the bedside. Patient seen up in the chair. Patient denies chest pain or pressure. She denies shortness of breath. Vital signs are stable. She remains in atrial fibrillation with heart rate between [id number]. 11/11/2023 Patient examined this morning at the bedside. Patient currently denies chest pain or pressure. She denies shortness of breath. She remains in atrial fibrillation with controlled ventricular rate. She remains on IV heparin. She is scheduled to undergo surgical intervention today. 11/13/2023 Patient is status post exploratory laparotomy, sigmoid resection, descending colostomy, cholecystectomy, and liver biopsy. Patient examined this morning the bedside. Patient currently denies chest pain or pressure. She denies shortness of breath. She remains in atrial fibrillation with controlled ventricular rate. Her IV Cardizem has been discontinued. 11/14/2023 Patient examined this morning at the bedside. Patient currently denies chest pain or pressure. She denies shortness of breath. She has been resumed back on Eliquis. She remains in atrial fibrillation with controlled ventricular rate. 11/14 Patient has been resumed on Eliquis and continued on Lopressor 25 mg twice daily. Heart rate 107, blood pressure 129/77, pulse ox 97% on room air. Telemetry is atrial fibrillation rate controlled. Repeat blood work reveals WBC 20.1, hemoglobin 10.2. BUN 15 creatinine 0.4. Patient received 1 dose of IV Lasix this morning. Patient was started back on Eliquis on 11/12. Note general surgery has recommended holding until epidural is removed. Epidural has been removed but there is concern the patient may need to have additional surgical intervention done. Patient is on TPN and oral diet. 11/15 Patient is seen today sitting up in a chair. She denies chest pain known palpitations. She remains in atrial fibrillation. Yesterday we resumed her back on Eliquis as there was concern that patient may need surgical intervention. Blood pressure 123/67, heart rate 96, pulse ox 97% on room air. No medication changes made today. 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 Patient has met with oncology this morning. Patient's heart rate remains elevated in the 120s and remains in atrial fibrillation. Patient has been kept on heparin drip in case she requires surgical revision of stoma. Blood pressure 120/79, pulse ox 96% on room air. WBC 26.9, hemoglobin 9.3, BUN 14 creatinine 0.39. Yesterday, metoprolol tartrate was increased to 50 mg twice daily. 11/17 Patient remains in atrial fibrillation with heart rates below 120s. She is on heparin drip and maintained on Lopressor 100 mg twice daily which was increased yesterday. Blood pressure 109/71, pulse ox 95% on room air. Repeat blood work reveals WBC 31.9, hemoglobin 10.5. Creatinine 0.38. 11/20/2023 Patient examined this morning at the bedside. Patient currently denies chest pain or pressure. She denies shortness of breath. Telemetry reveals atrial fibrillation with a heart rate in the 80s. She remains on IV heparin. Plan is for exploratory laparotomy with total colectomy end ileostomy placement on Wednesday with Dr. Cedeno PHYSICAL EXAM: VITAL SIGNS: Reviewed. GENERAL: Well-developed in no acute distress. HEENT: Head is normocephalic. Pupils are equal, round. Sclerae anicteric. Mucous membranes of the mouth are moist. Neck supple. No JVD or thyromegaly LUNGS: Respirations even and unlabored. Lungs essentially clear to auscultation bilaterally. HEART: Irregular rate and rhythm. S1 and S2 heard. ABDOMEN: Soft. Nondistended. Nontender. EXTREMITIES: Normal range of motion. No clubbing or cyanosis. Peripheral pul ses intact. No lower extremity edema NEUROLOGIC: Awake and alert. Oriented x 3. 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 Patient will require transition to oral anticoagulation postoperatively. Plan is for exploratory laparotomy with total colectomy end ileostomy placement on Wednesday with Dr. Cedeno Further recommendations pending patient course Nurse practitioner note has been reviewed by physician. Signing provider agrees with the documented findings, assessment, and plan of care documented by CHIEF ACCOUNTING OFFICER as a scribe. Objective - Vital Signs Vital signs: Vital Signs Temp 98 F 11/20/23 11:15 Pulse 80 11/20/23 11:15 Resp 18 11/20/23 11:15 BP 103/68 11/20/23 11:15 Pulse Ox 96 11/20/23 11:15 FiO2 Intake & Output 11/19/23 11/20/23 11/20/23 18:59 06:59 18:59 Intake Total 7228.043 7908 128 Output Total 2675 700 680 Balance -1430.169 394 -552 Weight 79 kg Intake: IV 140 20 10 .9@10 120 Invasive Line 7 20 20 10 Intake, IV Titration 964.743 5848 Amount Ampicillin-Sulbactam 3 gm 200 In Sodium Chloride 0.9% 100 ml @ 200 mls/hr IVPB Q6HR [facility] Rx#:[id number] Anidulafungin 100 mg In 100 Sodium Chloride 0.9% 100 ml @ 84 mls/hr IVPB DAILY [facility] Rx#:[id number] Heparin Sod,Pork in 0.45% 84.831 NaCl 25,000 unit In 0.45 % NaCl 1 250ml.bag @ 12 UNITS/KG/HR 8.94 mls/hr IV .Q24H [facility] Rx#: [id number] Mvi, Adult No.4 with Vit 1074 K 10 ml Trace (Conc-1Ml/ Dose) 1 ml Calcium Gluconate 1 gm Sodium Acetate 80 meq Magnesium Sulfate gm 0.5 gm Potassium Phosphate 21 mmol Potassium Chloride 10 meq In Amino Acids 5 % /Dextrose 20 % 1,000 ml @ 52 mls/hr IV .[id number] [facility] Rx#:[id number] Oral 720 118 Output: Urine 2150 500 500 Stool 525 200 180 Other: Voiding Method External Catheter External Catheter External Catheter - Labs CBC & Chem 7: 11/20/23 07:11 11/20/23 07:11 Labs: Abnormal Lab Results - Last 24 Hours (Table) 11/17/23 11/19/23 11/19/23 Range/Units 17:42 12:59 15:54 WBC (3.8-10.6) k/uL RBC (3.80-5.40) m/uL Hgb (11.4-16.0) gm/dL Hct (34.0-46.0) % MCV (80.0-100.0) fL Neutrophils # (1.3-7.7) k/uL APTT 43.4 H (22.0-30.0) sec Sodium (137-145) mmol/L Potassium (3.5-5.1) mmol/L BUN (7-17) mg/dL Creatinine (0.52-1.04) mg/dL Glucose (74-99) mg/dL POC Glucose (mg/dL) 167 H (70-110) mg/dL Calcium (8.4-10.2) mg/dL AST (14-36) U/L ALT (4-34) U/L Total Protein (6.3-8.2) g/dL Albumin (3.5-5.0) g/dL Chromogranin A 1939 H (0-187) ng/mL 11/19/23 11/19/23 11/19/23 Range/Units 18:08 21:39 23:32 WBC (3.8-10.6) k/uL RBC (3.80-5.40) m/uL Hgb (11.4-16.0) gm/dL Hct (34.0-46.0) % MCV (80.0-100.0) fL Neutrophils # (1.3-7.7) k/uL APTT 48.6 H (22.0-30.0) sec Sodium (137-145) mmol/L Potassium (3.5-5.1) mmol/L BUN (7-17) mg/dL Creatinine (0.52-1.04) mg/dL Glucose (74-99) mg/dL POC Glucose (mg/dL) 155 H 162 H (70-110) mg/dL Calcium (8.4-10.2) mg/dL AST (14-36) U/L ALT (4-34) U/L Total Protein (6.3-8.2) g/dL Albumin (3.5-5.0) g/dL Chromogranin A (0-187) ng/mL 11/20/23 11/20/23 11/20/23 Range/Units 05:59 06:27 07:11 WBC (3.8-10.6) k/uL RBC (3.80-5.40) m/uL Hgb (11.4-16.0) gm/dL Hct (34.0-46.0) % MCV (80.0-100.0) fL Neutrophils # (1.3-7.7) k/uL APTT (22.0-30.0) sec Sodium 132 L (137-145) mmol/L Potassium 3.4 L (3.5-5.1) mmol/L BUN 19 H (7-17) mg/dL Creatinine 0.47 L (0.52-1.04) mg/dL Glucose 171 H (74-99) mg/dL POC Glucose (mg/dL) 183 H 185 H (70-110) mg/dL Calcium 8.0 L (8.4-10.2) mg/dL AST 49 H (14-36) U/L ALT 41 H (4-34) U/L Total Protein 4.2 L (6.3-8.2) g/dL Albumin 2.0 L (3.5-5.0) g/dL Chromogranin A (0-187) ng/mL 11/20/23 11/20/23 11/20/23 Range/Units 07:11 07:11 11:48 WBC 24.9 H (3.8-10.6) k/uL RBC 3.02 L (3.80-5.40) m/uL Hgb 9.6 L (11.4-16.0) gm/dL Hct 30.2 L (34.0-46.0) % MCV 100.1 H (80.0-100.0) fL Neutrophils # 18.7 H (1.3-7.7) k/uL APTT 52.4 H (22.0-30.0) sec Sodium (137-145) mmol/L Potassium (3.5-5.1) mmol/L BUN (7-17) mg/dL Creatinine (0.52-1.04) mg/dL Glucose (74-99) mg/dL POC Glucose (mg/dL) 146 H (70-110) mg/dL Calcium (8.4-10.2) mg/dL AST (14-36) U/L ALT (4-34) U/L Total Protein (6.3-8.2) g/dL Albumin (3.5-5.0) g/dL Chromogranin A (0-187) ng/mL Microbiology - Last 24 Hours (Table) 11/17/23 14:37 Blood Culture - Preliminary Blood
[2023-11-20 12:53] LABS: Magnesium 1.9 mg/dL (1.6-2.3)
--- NOTE | 2023-11-20 14:25 | P.PN ---
Subjective Progress Note Date: 11/20/23 Principal diagnosis: Reason for follow-up is leukocytosis Patient is a 88-year-old female with a past medical history significant for hypertension hyperlipidemia atrial fibrillation history of breast cancer chronic back pain presenting to the hospital for evaluation ab dominal pain and constipation has been diagnosed with a large bowel obstruction and concern for possible liver mets did have persistent worsening white count prompting this consultation.Patient is status post expiratory laparotomy with sigmoid resection for large bowel obstruction and descending colostomy open cholecystectomy, peritoneal large liver biopsy procedure completed on 11/12/2023 On today's evaluation that is 11/20/2023, Patient is afebrile this morning patient denies having any chest pain shortness of breath or cough, the patient is breathing comfortably and currently on room air, patient denies any worsening abdominal pain and is controlled with the pain medication no nausea vomiting or diarrhea reported. Patient white count is now 24.9, creatinine 0.47 blood culture repeat negative Objective - Vital Signs Vital signs: Vital Signs Temp 98 F 11/20/23 11:15 Pulse 80 11/20/23 11:15 Resp 18 11/20/23 11:15 BP 103/68 11/20/23 11:15 Pulse Ox 96 11/20/23 11:15 FiO2 Intake & Output 11/19/23 11/20/23 11/20/23 18:59 06:59 18:59 Intake Total 7440.276 0359 128 Output Total 2675 700 680 Balance -1430.169 394 -552 Weight 79 kg Intake: IV 140 20 10 .9@10 120 Invasive Line 7 20 20 10 Intake, IV Titration 484.451 7091 Amount Ampicillin-Sulbactam 3 gm 200 In Sodium Chloride 0.9% 100 ml @ 200 mls/hr IVPB Q6HR [facility] Rx#:[id number] Anidulafungin 100 mg In 100 Sodium Chloride 0.9% 100 ml @ 84 mls/hr IVPB DAILY [facility] Rx#:[id number] Heparin Sod,Pork in 0.45% 84.831 NaCl 25,000 unit In 0.45 % NaCl 1 250ml.bag @ 12 UNITS/KG/HR 8.94 mls/hr IV .Q24H [facility] Rx#: [id number] Mvi, Adult No.4 with Vit 1074 K 10 ml Trace (Conc-1Ml/ Dose) 1 ml Calcium Gluconate 1 gm Sodium Acetate 80 meq Magnesium Sulfate gm 0.5 gm Potassium Phosphate 21 mmol Potassium Chloride 10 meq In Amino Acids 5 % /Dextrose 20 % 1,000 ml @ 52 mls/hr IV .[id number] [facility] Rx#:[id number] Oral 720 118 Output: Urine 2150 500 500 Stool 525 200 180 Other: Voiding Method External Catheter External Catheter External Catheter - Exam GENERAL DESCRIPTION: An elderly female lying in bed in no distress RESPIRATORY SYSTEM: Unlabored breathing , decreased breath sounds at bases HEART: S1 S2 regular rate and rhythm , ABDOMEN: Soft , mild distention EXTREMITIES: No edema feet - Labs CBC & Chem 7: 11/20/23 07:11 11/20/23 07:11 Labs: Abnormal Lab Results - Last 24 Hours (Table) 11/17/23 11/19/23 11/19/23 Range/Units 17:42 12:59 15:54 WBC (3.8-10.6) k/uL RBC (3.80-5.40) m/uL Hgb (11.4-16.0) gm/dL Hct (34.0-46.0) % MCV (80.0-100.0) fL Neutrophils # (1.3-7.7) k/uL APTT 43.4 H (22.0-30.0) sec Sodium (137-145) mmol/L Potassium (3.5-5.1) mmol/L BUN (7-17) mg/dL Creatinine (0.52-1.04) mg/dL Glucose (74-99) mg/dL POC Glucose (mg/dL) 167 H (70-110) mg/dL Calcium (8.4-10.2) mg/dL AST (14-36) U/L ALT (4-34) U/L Total Protein (6.3-8.2) g/dL Albumin (3.5-5.0) g/dL Chromogranin A 1939 H (0-187) ng/mL 11/19/23 11/19/23 11/19/23 Range/Units 18:08 21:39 23:32 WBC (3.8-10.6) k/uL RBC (3.80-5.40) m/uL Hgb (11.4-16.0) gm/dL Hct (34.0-46.0) % MCV (80.0-100.0) fL Neutrophils # (1.3-7.7) k/uL APTT 48.6 H (22.0-30.0) sec Sodium (137-145) mmol/L Potassium (3.5-5.1) mmol/L BUN (7-17) mg/dL Creatinine (0.52-1.04) mg/dL Glucose (74-99) mg/dL POC Glucose (mg/dL) 155 H 162 H (70-110) mg/dL Calcium (8.4-10.2) mg/dL AST (14-36) U/L ALT (4-34) U/L Total Protein (6.3-8.2) g/dL Albumin (3.5-5.0) g/dL Chromogranin A (0-187) ng/mL 11/20/23 11/20/23 11/20/23 Range/Units 05:59 06:27 07:11 WBC (3.8-10.6) k/uL RBC (3.80-5.40) m/uL Hgb (11.4-16.0) gm/dL Hct (34.0-46.0) % MCV (80.0-100.0) fL Neutrophils # (1.3-7.7) k/uL APTT (22.0-30.0) sec Sodium 132 L (137-145) mmol/L Potassium 3.4 L (3.5-5.1) mmol/L BUN 19 H (7-17) mg/dL Creatinine 0.47 L (0.52-1.04) mg/dL Glucose 171 H (74-99) mg/dL POC Glucose (mg/dL) 183 H 185 H (70-110) mg/dL Calcium 8.0 L (8.4-10.2) mg/dL AST 49 H (14-36) U/L ALT 41 H (4-34) U/L Total Protein 4.2 L (6.3-8.2) g/dL Albumin 2.0 L (3.5-5.0) g/dL Chromogranin A (0-187) ng/mL 11/20/23 11/20/23 11/20/23 Range/Units 07:11 07:11 11:48 WBC 24.9 H (3.8-10.6) k/uL RBC 3.02 L (3.80-5.40) m/uL Hgb 9.6 L (11.4-16.0) gm/dL Hct 30.2 L (34.0-46.0) % MCV 100.1 H (80.0-100.0) fL Neutrophils # 18.7 H (1.3-7.7) k/uL APTT 52.4 H (22.0-30.0) sec Sodium (137-145) mmol/L Potassium (3.5-5.1) mmol/L BUN (7-17) mg/dL Creatinine (0.52-1.04) mg/dL Glucose (74-99) mg/dL POC Glucose (mg/dL) 146 H (70-110) mg/dL Calcium (8.4-10.2) mg/dL AST (14-36) U/L ALT (4-34) U/L Total Protein (6.3-8.2) g/dL Albumin (3.5-5.0) g/dL Chromogranin A (0-187) ng/mL Microbiology - Last 24 Hours (Table) 11/17/23 14:37 Blood Culture - Preliminary Blood Assessment and Plan (1) Leukocytosis Current Visit: Yes Status: Acute Code(s): D72.829 - ELEVATED WHITE BLOOD CE LL COUNT, UNSPECIFIED SNOMED Code(s): 724792861 (2) Partial bowel obstruction Current Visit: Yes Status: Acute Priority: High Code(s): K56.600 - PARTIAL INTESTINAL OBSTRUCTION, UNSPECIFIED TO CAUSE SNOMED Code(s): 34559 [id number] Plan: 1patient with leukocytosis which is likely multifactorial in this patient admitted to hospital with abdominal pain and constipation has been diagnosed with a large bowel obstruction with a question of possible mass versus colitis mass may be favored as the patient did have multiple lesion in the liver concerning for metastatic disease with worsening of the white count despite being on Rocephin and Flagyl we need to broaden her antibiotic coverage 2-blood cultures has been repeated currently pending 3-patient is status post extensive abdominal surgery, abdominal cultures now growing Enterococcus faecalis penicillin sensitive and Bacteroides species 4patient did have repeat CT abdominal pelvis that has been suggestive of progression of her liver metastasis may be contributing to some of this elevated white count per discussion with the surgery there was a possible necrotic tumor to the liver 5the patient white count is down to 24,000 we will continue to monitor white count close and continue with Unasyn Flagyl and Eraxis Daughter at the bedside questions were answered Dictation was produced using [employer] dictation software. please excuse any grammatical, word or spelling errors. Time with Patient: Less than 30
--- NOTE | 2023-11-20 16:48 | P.PN ---
Progress Note - Text Progress Note Date: 11/20/23 CHIEF COMPLAINT: Large bowel obstruction with metastatic cancer HISTORY OF PRESENT ILLNESS: The patient is a 88-year-old female mostly presented with abdominal distention and mild abdominal pain. She underwent colectomy with liver biopsy and cholecystectomy with pathology confirming metastatic neuroendocrine tumor. patient complains of abdominal pain. Her computed tomography scan had showed progression of metastatic liver disease. interval development of anasarca. Nodular studding right lower lobe anterior. Metastatic disease to the chest difficult to exclude. Colonic wall thickening. PHYSICAL EXAM: VITAL SIGNS: Reviewed GENERAL: Well-developed in no acute distress. HEENT: No sclera icterus. Extraocular movements grossly intact. Moist buccal mucosa. Head is atraumatic, normocephalic. Hears conversational speech. No nasal drainage. NECK: Supple without lymphadenopathy. CHEST: Non-labored respirations and equal bilateral excursions. CARDIOVASCULAR: Palpable 2+ radial pulses. ABDOMEN: Diffuse tenderness. Mildly distended. Prevana wound VAC intact. Stoma is dark. There is stool present in ostomy MUSCULOSKELETAL: No clubbing or cyanosis. NEUROLOGIC: No focal or lateralizing signs. Cranial nerves II through XII grossly intact. PSYCH: Appropriate affect. Alert and oriented to person, place and time. SKIN: Well perfused. Good skin turgor. ASSESSMENT: 1. Metastatic neuroendocrine colon carcinoma 2. New cavitary liver lesion likely causing elevated white blood cell count 3. Ischemic enteritis with colitis 4. Protein malnutrition, moderate to severe 5. Generalized anasarca with ascites PLAN: -patient scheduled for exploratory laparotomy with total colectomy with ileostomy on 11/22/2023 -Recommend high-protein diet such as Ensure max 30 g 2-3 times daily. This should help correct her hypoalbuminemia and resultant ascites -Recommend continue with heparin drip due to ischemic colitis and ischemic bowel
[2023-11-20 17:40] LABS: Glucose,Whole Blood 170 mg/dL (70-110)
[2023-11-20] MEDS: AMPICILLIN-SULBACTAM 3 GM in SODIUM CHLORIDE 0.9% 100 ML IVPB SCH (20:31)
[2023-11-20 23:54] LABS: Glucose,Whole Blood 139 mg/dL (70-110)
[2023-11-21 05:29] LABS: Basophils # (A) 0.1 k/uL (0-0.2); Basophils % (A) 1 %; Eosinophils # (A) 0.2 k/uL (0-0.7); Eosinophils % (A) 1 %; HCT 31.2 % (34.0-46.0); Hypochromasia Slight; Lymphocytes # (A) 4.6 k/uL (1.0-4.8); Lymphocytes % (A) 19 %; MCHC 32.1 g/dL (31.0-37.0); MCV 99.8 fL (80.0-100.0); Mean Platelet Volume 8.1; Monocytes # (A) 0.8 k/uL (0-1.0); Monocytes % (A) 3 %; Neutrophils # (A) 18.1 k/uL (1.3-7.7); Neutrophils % (A) 75 %; Platelet Count 443 k/uL (150-450); RBC 3.13 m/uL (3.80-5.40); RDW 13.9 % (11.5-15.5); WBC 24.2 k/uL (3.8-10.6)
[2023-11-21 05:50] LABS: ALT 34 U/L (4-34); AST 49 U/L (14-36); African American GFR (CKD) >90 (>60 ml/min/1.73 sqM); Albumin 2.2 g/dL (3.5-5.0); Alkaline Phosphatase 118 U/L (38-126); Anion Gap 4 mmol/L; Blood Urea Nitrogen 24 mg/dL (7-17); Carbon Dioxide 26 mmol/L (22-30); Chloride 99 mmol/L (98-107); Glucose 146 mg/dL (74-99); Magnesium 1.9 mg/dL (1.6-2.3); Non-African American GFR(CKD) >90 (>60 ml/min/1.73 sqM); Phosphorus 3.3 mg/dL (2.5-4.5); Potassium 3.8 mmol/L (3.5-5.1); Sodium 129 mmol/L (137-145); Total Bilirubin 0.4 mg/dL (0.2-1.3); Total Protein 4.3 g/dL (6.3-8.2)
[2023-11-21 05:54] LABS: Glucose,Whole Blood 155 mg/dL (70-110)
[2023-11-21] MEDS ORDERED: DILTIAZEM 125 MG in SODIUM CHLORIDE 0.9% 100 ML IV SCH (10:00)
--- NOTE | 2023-11-21 10:12 | P.PN ---
Progress Note - Text Progress Note Date: 11/21/23 Patient main stable. Her wound system suction is not working. On exam vital signs appear stable. Abdomen is soft. There are some stool in the colostomy bag. Patient will have her wound system removed. She is scheduled for subtotal colectomy in the a.m.
[2023-11-21] MEDS: DILTIAZEM 125 MG in SODIUM CHLORIDE 0.9% 100 ML IV SCH (10:24)
--- NOTE | 2023-11-21 10:43 | P.PN ---
Subjective Progress Note Date: 11/21/23 Subjective: Patient seen and examined at bedside. No acute events overnight. Occasional abdominal pain, relieved with pain medications. Denies any nausea or vomiting. Still having output from her ostomy. Has not been getting out of bed into the chair. Has an external urinary catheter Pertinent positives and negatives as discussed above, a complete review of systems was performed and all other systems are negative. Vitals: Signs Reviewed Physical Exam: General: nontoxic, no distress, appears at stated age Derm: warm, dry, intact Head: atraumatic, normocephalic, symmetric Eyes: EOMI, no lid lag, anicteric sclera Mouth: no lip lesion, mucus membranes moist Cardiovascular: S1 S2 reg, no murmur, rubs, or gallops Lungs: CTA bilateral, no rhonchi, no rales, no accessory muscle use Abdominal: distended, tender to palpataion, no appreciable organomegaly, ostomy in place, stoma dusky, necrotic Extremities: no gross muscle atrophy, no edema, no contractures Neuro: Alert, Oriented, CNII-XII grossly intact Psych: well appearing, appropriate affect Data Received Today: Pertinent Labs: WBC 24.2, hemoglobin 10, sodium 129, creatinine 0.43, blood sugars range between 1 39-1 70, magnesium 1.9 Imaging: No new imaging Assessment and Plan: 88-year-old female with past medical history of IBS, hypothyroid, hypertension, breast cancer, and A-fib presents with abdominal pain associated with constipation. Initially admitted for partial large bowel obstruction secondary to sigmoid mass. Further workup showed metastatic well-differentiated neuroendocrine tumor. S/p sigmoid colectomy with costomy and cholecystectomy. However does have ischemic bowel, will need subtotal colectomy likely tomorrow. Partial large bowel obstruction due to sigmoid mass s/p sigmoid colectomy with costomy and cholecystectomy Metastatic well-differentiated neuroendocrine tumor Leukocytosis Possible peritonitis Now has ischemic enteritis with colitis, needs further ex lap with likely total versus subtotal colectomy with ileostomy tomorrow -Surgery note reviewed -On TPN as well as low fiber diet, also on protein supplements Morphine 2 mg ivp q4h prn for severe pain, monitor for sedation Oncology following, Will obtain PET scan outpatient, Serotonin, and 24-hour urine HIAA pending, Chromogranin A 1939 -ID following, patient continued on Unasyn 3 g IV every 6 hours, Eraxis 100 mg IV daily, Flagyl 500 p.o. 3 times daily Small bilateral pleural effusion Possible right lung metastatic disease - chest ultrasound: left small to moderate pleural effusion - pulmonology following, no thoracentesis necessary -Patient on room air Atrial fibrillation w/ rvr, now rate controlled Hypomagnesemia, resolved Monitoring on telemetry. Cardiology following, continue Metoprolol 100 mg PO BID and 50 mg daily at bedtime for rate control. continue amiodarone 200 mg daily. Will monitor heart rate, under 120 bpm is acceptable. currently on heparin drip, monitor APTT, daily CBC, monitor for bleeding Keep K > 4, magnesium > 2 Will monitor potassium and magnesium. Follow-up BMP Hypoalbuminemia Anasarca Heart failure with reduced ejection fraction 35 to 40%, not in exacerbation Hyponatremia, likely hypervolemic, now likely euvolemia Continue protein supplements orally Patient has received IV Lasix 40, 3 days in a row Has worsening sodium, possibly in the setting of decreased solid intake versus diuresis -For better surgical optimization, will get nephrology involved as well, consulted Hyperglycemia Hypoglycemia, resolved Levemir decreased to 5 units daily as patient will be going to surgery tomorrow On insulin subcu sliding scale Will continue to monitor for hypoglycemia - A1c 6.0, prediabetic, possibly reactive Hypokalemia, resolved Metabolic acidosis with high anion gap, resolved Macrocytosis, resolved Hypothyroidism, chronic - Continue levothyroxine -Likely has euthyroid sick syndrome -TSH elevated, free T4 within normal limits, consider repeating in 4 to 6 weeks Urinary incontinence, chronic -External catheter in place Hypertension, currently controlled - Hold home HCTZ and losartan Dyslipidemia, chronic Atorvastatin 20 mg PO F: TPN E: Replete as needed N: Low fiber diet A: fall precautions, hypoglycemia protocol, PT recommending inpatient rehab versus subacute rehab DVT ppx: Heparin drip Code status: No code w/instructions Anticipated discharge place: pending clinical course Anticipated discharge time: pending clinical course Objective - Vital Signs Vital signs: Vital Signs Temp 98.1 F 11/21/23 04:00 Pulse 101 H 11/21/23 04:00 Resp 18 11/21/23 04:00 BP 123/68 11/21/23 04:00 Pulse Ox 95 11/21/23 04:00 FiO2 Intake & Output 11/20/23 11/21/23 11/21/23 18:59 06:59 18:59 Intake Total 4944.556 5817.8 317.461 Output Total 1980 1550 Balance -956.000 -495.2 317.461 Weight 79.8 kg Intake: IV 20 20 Invasive Line 7 20 20 Intake, IV Titration 449.536 6579.8 199.461 Amount Ampicillin-Sulbactam 3 gm 100 In Sodium Chloride 0.9% 100 ml @ 200 mls/hr IVPB Q6H [facility] Rx#:[id number] Anidulafungin 100 mg In 100 Sodium Chloride 0.9% 100 ml @ 84 mls/hr IVPB DAILY [facility] Rx#:[id number] Heparin Sod,Pork in 0.45% 250.000 199.461 NaCl 25,000 unit In 0.45 % NaCl 1 250ml.bag @ 12 UNITS/KG/HR 8.94 mls/hr IV .Q24H [facility] Rx#: [id number] Mvi, Adult No.4 with Vit 1034.8 K 10 ml Trace (Conc-1Ml/ Dose) 1 ml Calcium Gluconate 1 gm Sodium Acetate 80 meq Magnesium Sulfate gm 0.5 gm Potassium Phosphate 21 mmol Potassium Chloride 10 meq In Amino Acids 5 % /Dextrose 20 % 1,000 ml @ 52 mls/hr IV .[id number] [facility] Rx#:[id number] Potassium Chloride 20 meq 200 In Water For Injection 1 100ml.bag @ 50 mls/hr IVPB Q2H [facility] Rx#: [id number] Oral 354 118 Output: Urine 1150 1050 Stool 830 500 Other: Voiding Method External Catheter External Catheter - Labs CBC & Chem 7: 11/21/23 05:11 11/21/23 05:11 Labs: Abnormal Lab Results - Last 24 Hours (Table) 11/20/23 11/20/23 11/20/23 Range/Units 11:48 17:39 23:51 WBC (3.8-10.6) k/uL RBC (3.80-5.40) m/uL Hgb (11.4-16.0) gm/dL Hct (34.0-46.0) % Neutrophils # (1.3-7.7) k/uL APTT (22.0-30.0) sec Sodium (137-145) mmol/L BUN (7-17) mg/dL Creatinine (0.52-1.04) mg/dL Glucose (74-99) mg/dL POC Glucose (mg/dL) 146 H 170 H 139 H (70-110) mg/dL Calcium (8.4-10.2) mg/dL AST (14-36) U/L Total Protein (6.3-8.2) g/dL Albumin (3.5-5.0) g/dL 11/21/23 11/21/23 11/21/23 Range/Units 05:11 05:11 05:11 WBC 24.2 H (3.8-10.6) k/uL RBC 3.13 L (3.80-5.40) m/uL Hgb 10.0 L (11.4-16.0) gm/dL Hct 31.2 L (34.0-46.0) % Neutrophils # 18.1 H (1.3-7.7) k/uL APTT 53.6 H (22.0-30.0) sec Sodium 129 L (137-145) mmol/L BUN 24 H (7-17) mg/dL Creatinine 0.43 L (0.52-1.04) mg/dL Glucose 146 H (74-99) mg/dL POC Glucose (mg/dL) (70-110) mg/dL Calcium 8.0 L (8.4-10.2) mg/dL AST 49 H (14-36) U/L Total Protein 4.3 L (6.3-8.2) g/dL Albumin 2.2 L (3.5-5.0) g/dL 11/21/23 Range/Units 05:52 WBC (3.8-10.6) k/uL RBC (3.80-5.40) m/uL Hgb (11.4-16.0) gm/dL Hct (34.0-46.0) % Neutrophils # (1.3-7.7) k/uL APTT (22.0-30.0) sec Sodium (137-145) mmol/L BUN (7-17) mg/dL Creatinine (0.52-1.04) mg/dL Glucose (74-99) mg/dL POC Glucose (mg/dL) 155 H (70-110) mg/dL Calcium (8.4-10.2) mg/dL AST (14-36) U/L Total Protein (6.3-8.2) g/dL Albumin (3.5-5.0) g/dL Microbiology - Last 24 Hours (Table) 11/17/23 14:37 Blood Culture - Preliminary Blood
--- NOTE | 2023-11-21 11:12 | P.CONS ---
History of Present Illness - Reason for Consult Consult date: 11/16/23 - History of Present Illness Patient is an 88 yo F who is right handed, who lives alone in a house with [address] ME[address] She was driving. She did not use any assistive devices to ambulate. She has 2ww and 4 ww and cane from her before he passed. Her daughter is her support system. She has friends as well. Her past medical history is significant for atrial fibrillation, SVT, hypertension, hyperlipidemia, and hypothyroidism. She presented to the hospital for evaluation abdominal pain and constipation. She was found to have a large bowel obstruction and concern for possible liver mets. She did have significant leukocytosis. She is now status post expiratory laparotomy with sigmoid resection for large bowel obstruction and descending colostomy open cholecystectomy, peritoneal large liver biopsy procedure completed on 11/12/2023. Abdominal cultures growing Enterococcus faecalis and bacteroides. She endorses abdominal pain. She has ostomy. No changes in vision. She has TPN and eating minimally. Official therapy evals are pending but OT and PT did see her. PMR consulted for rehab recs. Past Medical History Past Medical History: Atrial Fibrillation, Cancer, Hyperlipidemia, Hypertension Additional Past Medical History / Comment(s): breast CA 1987, chroic back pain 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 BILAT KNEE REPL. BILAT CATARACT REM Past Anesthesia/Blood Transfusion Reactions: No Reported Reaction Past Psychological History: No Psychological Hx Reported Smoking Status: Never smoker Past Alcohol Use History: Daily Past Drug Use History: None Reported Medications and Allergies Home Medications Medication Instructions Recorded Confirmed Type Amiodarone HCl [Pacerone] 200 mg PO DAILY 05/19/22 11/05/23 History Apixaban [Eliquis] 5 mg PO BID 05/19/22 11/05/23 History Atorvastatin [Lipitor] 20 mg PO DAILY 05/19/22 11/05/23 History Calcium Carbonate [Calcium] 600 mg PO HS 05/19/22 11/05/23 History Cholecalciferol [Vitamin D3 (25 25 mcg PO HS 05/19/22 11/05/23 History Mcg = 1000 Iu)] Cyanocobalamin (Vitamin B-12) 1,000 mcg PO Q7D 05/19/22 11/05/23 History [Vitamin B-12] Levothyroxine Sodium [Synthroid] 100 mcg PO DAILY 05/19/22 11/05/23 History Losartan/Hydrochlorothiazide 1 tab PO DAILY 05/19/22 11/05/23 History [Losartan-Hctz 50-12.5 mg Tab] Multivit-Min/FA/Lycopen/Lutein 1 tab PO HS 05/19/22 11/05/23 History [Centrum Silver Tablet] Omeprazole [PriLOSEC] 20 mg PO DAILY 05/19/22 11/05/23 History Metoprolol Tartrate 25 mg PO BID 09/14/22 11/05/23 History Acetaminophen Tab [Tylenol Tab] 1,000 mg PO BID 11/05/23 11/05/23 History HYDROcodone/APAP 5-325MG [[place] 1 tab PO BID PRN 11/05/23 11/05/23 History 5-325] Magnesium Hydroxide [Milk of 2,400 mg PO DAILY PRN 11/05/23 11/05/23 History Magnesia] Mirabegron [Myrbetriq] 50 mg PO DAILY 11/05/23 11/05/23 History Super B Complex 1 tab PO Q7D 11/05/23 11/05/23 History traMADol HCL 50 mg PO TID PRN 11/05/23 11/05/23 History Allergies Allergy/AdvReac Type Severity Reaction Status Date / Time No Known Allergies Allergy Verified 11/05/23 18:15 Physical Exam Vitals: Vital Signs Temp Pulse Resp BP Pulse Ox 11/16/23 08:52 97.8 F 96 15 125/67 97 11/16/23 08:22 96 11/16/23 04:00 98.2 F 101 H 14 140/74 97 11/15/23 23:10 98.0 F 95 16 142/72 96 11/15/23 20:05 98.3 F 96 14 131/84 98 11/15/23 16:20 98.2 F 105 H 16 149/84 96 11/15/23 11:35 102 H 16 142/57 96 Intake and Output 11/15/23 11/16/23 11/16/23 22:59 06:59 14:59 Intake Total 999.267 364 Output Total 750 850 Balance 249.267 -850 364 Intake: Intake, IV Titration 999.267 Amount Mvi, Adult No.4 with Vit 999.267 K 10 ml Trace (Conc-1Ml/ Dose) 1 ml Calcium Gluconate 1 gm Sodium Acetate 50 meq Magnesium Sulfate gm 0.5 gm Potassium Phosphate 15 mmol In Amino Acids 5 %/ Dextrose 20 % 1,000 ml @ 52 mls/hr IV .[id number] [facility] Rx#:[id number] Oral 364 Output: Urine 750 850 Other: Voiding Method External Catheter External Catheter External Catheter # Voids 2 # Bowel Movements 1 Weight 74.1 kg MMT upper extremities 5/5 except EF and EE 4/5, shoulder abduction is at least a 4/5 but limited due to abdominal pain HF antigravity KE antigravity DF 5/5 EHL 5/5 Edema 2+ b/l, SCDs Right arm IV and PICC line Neuro AOx3 CN II-XII grossly. : [facility] GI: +ostomy, wound vac on abdomen Results CBC & Chem 7: 11/16/23 06:21 11/16/23 06:21 Labs: Abnormal Lab Results - Last 24 Hours (Table) 11/15/23 11/15/23 11/15/23 Range/Units 11:47 16:49 16:49 WBC 20.6 H (3.8-10.6) k/uL RBC 3.34 L (3.80-5.40) m/uL Hgb 10.7 L (11.4-16.0) gm/dL Hct (34.0-46.0) % MCV 102.5 H (80.0-100.0) fL Neutrophils # 14.1 H (1.3-7.7) k/uL Monocytes # 1.1 H (0-1.0) k/uL APTT >200.0 H* (22.0-30.0) sec Sodium (137-145) mmol/L Potassium (3.5-5.1) mmol/L Creatinine (0.52-1.04) mg/dL Glucose (74-99) mg/dL POC Glucose (mg/dL) 218 H (70-110) mg/dL Calcium (8.4-10.2) mg/dL AST (14-36) U/L ALT (4-34) U/L Total Protein (6.3-8.2) g/dL Albumin (3.5-5.0) g/dL 11/15/23 11/15/23 11/15/23 Range/Units 17:42 22:18 23:07 WBC (3.8-10.6) k/uL RBC (3.80-5.40) m/uL Hgb (11.4-16.0) gm/dL Hct (34.0-46.0) % MCV (80.0-100.0) fL Neutrophils # (1.3-7.7) k/uL Monocytes # (0-1.0) k/uL APTT 55.0 H (22.0-30.0) sec Sodium (137-145) mmol/L Potassium (3.5-5.1) mmol/L Creatinine (0.52-1.04) mg/dL Glucose (74-99) mg/dL POC Glucose (mg/dL) 218 H 186 H (70-110) mg/dL Calcium (8.4-10.2) mg/dL AST (14-36) U/L ALT (4-34) U/L Total Protein (6.3-8.2) g/dL Albumin (3.5-5.0) g/dL 11/16/23 11/16/23 11/16/23 Range/Units 05:52 06:21 06:21 WBC 19.7 H (3.8-10.6) k/uL RBC 3.19 L (3.80-5.40) m/uL Hgb 10.2 L (11.4-16.0) gm/dL Hct 32.5 L (34.0-46.0) % MCV 101.8 H (80.0-100.0) fL Neutrophils # 13.0 H (1.3-7.7) k/uL Monocytes # 1.1 H (0-1.0) k/uL APTT (22.0-30.0) sec Sodium 133 L (137-145) mmol/L Potassium 3.0 L (3.5-5.1) mmol/L Creatinine 0.39 L (0.52-1.04) mg/dL Glucose 215 H (74-99) mg/dL POC Glucose (mg/dL) 201 H (70-110) mg/dL Calcium 7.6 L (8.4-10.2) mg/dL AST 73 H (14-36) U/L ALT 48 H (4-34) U/L Total Protein 4.2 L (6.3-8.2) g/dL Albumin 2.0 L (3.5-5.0) g/dL 11/16/23 Range/Units 06:21 WBC (3.8-10.6) k/uL RBC (3.80-5.40) m/uL Hgb (11.4-16.0) gm/dL Hct (34.0-46.0) % MCV (80.0-100.0) fL Neutrophils # (1.3-7.7) k/uL Monocytes # (0-1.0) k/uL APTT 51.3 H (22.0-30.0) sec Sodium (137-145) mmol/L Potassium (3.5-5.1) mmol/L Creatinine (0.52-1.04) mg/dL Glucose (74-99) mg/dL POC Glucose (mg/dL) (70-110) mg/dL Calcium (8.4-10.2) mg/dL AST (14-36) U/L ALT (4-34) U/L Total Protein (6.3-8.2) g/dL Albumin (3.5-5.0) g/dL Microbiology - Last 24 Hours (Table) 11/10/23 17:41 Blood Culture - Final Blood Assessment and Plan Assessment: Debility from bowel obstruction, status post exploratory laparotomy, sigmoid resection, descending colostomy, cholecystectomy, and liver biopsy PT/OT evaluations Dispo: Pending PT/OT evals. Will likely be a good IPR candidate once all surgical interventions are completed. She is below baseline function with mu ltiple new medical comorbidities that need to be monitored closely under physician supervision. She can tolerate 3 hrs/ day. Multiple hepatic lesions, status post biopsy in OR Cholecystitis s/p cholecystectomy 11/12/2023 Paroxysmal atrial fibrillation -patient currently on heparin and off her eliquis bc of possible further intervention. History of cardioversion, 2022 Hypertension Hyperlipidemia Hypothyroidism Malnutrition on TPN, minimal oral intake -Nutrition and [employer] following. CHF with EF of 35 to 40%
--- NOTE | 2023-11-21 11:13 | P.PN ---
Subjective HISTORY OF PRESENT ILLNESS: This is a 88-year-old female with a past medical history significant for atrial fibrillation, SVT, hypertension, hyperlipidemia, and hypothyroidism. Patient follows in the office with Dr. Holloway. We have been asked to see the patient in consultation for cardiac risk assessment. Patient examined at the bedside. Patient states she presented to the hospital after not having a bowel movement for 11 days. She has been seen by general surgery and is scheduled to undergo open sigmoid colectomy with colostomy on 11/11/[address] Cedeno. Patient currently denies any chest pain or pressure. She denies any shortness of breath. Apparently, overnight the patient went tachycardic and she was prescribed IV heparin and IV amiodarone and transferred to [facility]. She converted to sinus mechanism and is maintaining sinus mechanism at the time of examination. DIAGNOSTICS: - Telemetry currently reveals sinus mechanism - Laboratory data: WBC 17.7. Hemoglobin 11.9. Platelet count 325. Sodium 139. Potassium 3.9. BUN 16. Creatinine 0.7. TSH 18.3. Free T41.67. - Current home cardiac medications include amiodarone 200 mg daily, metoprolol tartrate 25 mg twice a day, Lipitor 20 mg daily, Eliquis 5 mg twice a day. - Most recent echocardiogram obtained in July 2022 revealed ejection fraction 52%, mild aortic stenosis, mild mitral regurgitation, mild tricuspid regurgitation 11/09/2023 Patient examined this morning at the bedside. Patient currently denies chest pain or pressure. She denies shortness of breath. She remains in atrial fibrillation with decently controlled ventricular rates. Echocardiogram c ompleted revealing ejection fraction 35 to 40%, mild MR, mild 11/10/2023 Patient examined this morning the bedside. Patient seen up in the chair. Patient denies chest pain or pressure. She denies shortness of breath. Vital signs are stable. She remains in atrial fibrillation with heart rate between [id number]. 11/11/2023 Patient examined this morning at the bedside. Patient currently denies chest pain or pressure. She denies shortness of breath. She remains in atrial fibrillation with controlled ventricular rate. She remains on IV heparin. She is scheduled to undergo surgical intervention today. 11/13/2023 Patient is status post exploratory laparotomy, sigmoid resection, descending colostomy, cholecystectomy, and liver biopsy. Patient examined this morning the bedside. Patient currently denies chest pain or pressure. She denies shortness of breath. She remains in atrial fibrillation with controlled ventricular rate. Her IV Cardizem has been discontinued. 11/14/2023 Patient examined this morning at the bedside. Patient currently denies chest pain or pressure. She denies shortness of breath. She has been resumed back on Eliquis. She remains in atrial fibrillation with controlled ventricular rate. 11/14 Patient has been resumed on Eliquis and continued on Lopressor 25 mg twice daily. Heart rate 107, blood pressure 129/77, pulse ox 97% on room air. Telemetry is atrial fibrillation rate controlled. Repeat blood work reveals WBC 20.1, hemoglobin 10.2. BUN 15 creatinine 0.4. Patient received 1 dose of IV Lasix this morning. Patient was started back on Eliquis on 11/12. Note general surgery has recommended holding until epidural is removed. Epidural has been removed but there is concern the patient may need to have additional surgical intervention done. Patient is on TPN and oral diet. 11/15 Patient is seen today sitting up in a chair. She denies chest pain known palpitations. She remains in atrial fibrillation. Yesterday we resumed her back on Eliquis as there was concern that patient may need surgical intervention. Blood pressure 123/67, heart rate 96, pulse ox 97% on room air. No medication changes made today. 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 Patient has met with oncology this morning. Patient's heart rate remains elevated in the 120s and remains in atrial fibrillation. Patient has been kept on heparin drip in case she requires surgical revision of stoma. Blood pressure 120/79, pulse ox 96% on room air. WBC 26.9, hemoglobin 9.3, BUN 14 creatinine 0.39. Yesterday, metoprolol tartrate was increased to 50 mg twice daily. 11/17 Patient remains in atrial fibrillation with heart rates below 120s. She is on heparin drip and maintained on Lopressor 100 mg twice daily which was increased yesterday. Blood pressure 109/71, pulse ox 95% on room air. Repeat blood work reveals WBC 31.9, hemoglobin 10.5. Creatinine 0.38. 11/20/2023 Patient examined this morning at the bedside. Patient currently denies chest pain or pressure. She denies shortness of breath. Telemetry reveals atrial fibrillation with a heart rate in the 80s. She remains on IV heparin. Plan is for exploratory laparotomy with total colectomy end ileostomy placement on Wednesday with Dr. Cedeno 11/21/2023 Patient examined this morning at bedside. Patient currently denies chest pain or pressure. She denies shortness of breath. Telemetry reveals atrial fibrillation with a heart rate in the 120s. Patient's heart rate was well- controlled yesterday. She is tolerating oral medications. She remains on IV heparin. PHYSICAL EXAM: VITAL SIGNS: Reviewed. GENERAL: Well-developed in no acute distress. HEENT: Head is normocephalic. Pupils are equal, round. Sclerae anicteric. Mucous membranes of the mouth are moist. Neck supple. No JVD or thyromegaly LUNGS: Respirations even and unlabored. Lungs essentially clear to auscultation bilaterally. HEART: Tachycardic. Irregular rate and rhythm. S1 and S2 heard. ABDOMEN: Soft. Nondistended. Mild tenderness. EXTREMITIES: Normal range of motion. No clubbing or cyanosis. Peripheral pulses intact. No lower extremity edema NEUROLOGIC: Awake and alert. Oriented x 3. 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 Patient will require transition to oral anticoagulation postoperatively. Begin IV Cardizem at 5 mg an hour with no bolus in the interim for optimal heart rate control for surgical intervention. Will discontinue postoperatively. Plan is for exploratory laparotomy with total colectomy end ileostomy placement on Wednesday with Dr. Cedeno Further recommendations pending patient course Nurse practitioner note has been reviewed by physician. Signing provider agrees with the documented findings, assessment, and plan of care documented by [employer] as a scribe. Objective - Vital Signs Vital signs: Vital Signs Temp 98.1 F 11/21/23 04:00 Pulse 101 H 11/21/23 04:00 Resp 18 11/21/23 04:00 BP 123/68 11/21/23 04:00 Pulse Ox 95 11/21/23 04:00 FiO2 Intake & Output 11/20/23 11/21/23 11/21/23 18:59 06:59 18:59 Intake Total 4438.469 5255.8 317.461 Output Total 1980 1550 Balance -956.000 -495.2 317.461 Weight 79.8 kg Intake: IV 20 20 Invasive Line 7 20 20 Intake, IV Titration 686.225 2709.8 199.461 Amount Ampicillin-Sulbactam 3 gm 100 In Sodium Chloride 0.9% 100 ml @ 200 mls/hr IVPB Q6H [facility] Rx#:[id number] Anidulafungin 100 mg In 100 Sodium Chloride 0.9% 100 ml @ 84 mls/hr IVPB DAILY [facility] Rx#:[id number] Heparin Sod,Pork in 0.45% 250.000 199.461 NaCl 25,000 unit In 0.45 % NaCl 1 250ml.bag @ 12 UNITS/KG/HR 8.94 mls/hr IV .Q24H [facility] Rx#: [id number] Mvi, Adult No.4 with Vit 1034.8 K 10 ml Trace (Conc-1Ml/ Dose) 1 ml Calcium Gluconate 1 gm Sodium Acetate 80 meq Magnesium Sulfate gm 0.5 gm Potassium Phosphate 21 mmol Potassium Chloride 10 meq In Amino Acids 5 % /Dextrose 20 % 1,000 ml @ 52 mls/hr IV .[id number] [facility] Rx#:[id number] Potassium Chloride 20 meq 200 In Water For Injection 1 100ml.bag @ 50 mls/hr IVPB Q2H [facility] Rx#: [id number] Oral 354 118 Output: Urine 1150 1050 Stool 830 500 Other: Voiding Method External Catheter External Catheter - Labs CBC & Chem 7: 11/21/23 05:11 11/21/23 05:11 Labs: Abnormal Lab Results - Last 24 Hours (Table) 11/20/23 11/20/23 11/20/23 Range/Units 11:48 17:39 23:51 WBC (3.8-10.6) k/uL RBC (3.80-5.40) m/uL Hgb (11.4-16.0) gm/dL Hct (34.0-46.0) % Neutrophils # (1.3-7.7) k/uL APTT (22.0-30.0) sec Sodium (137-145) mmol/L BUN (7-17) mg/dL Creatinine (0.52-1.04) mg/dL Glucose (74-99) mg/dL POC Glucose (mg/dL) 146 H 170 H 139 H (70-110) mg/dL Calcium (8.4-10.2) mg/dL AST (14-36) U/L Total Protein (6.3-8.2) g/dL Albumin (3.5-5.0) g/dL 11/21/23 11/21/23 11/21/23 Range/Units 05:11 05:11 05:11 WBC 24.2 H (3.8-10.6) k/uL RBC 3.13 L (3.80-5.40) m/uL Hgb 10.0 L (11.4-16.0) gm/dL Hct 31.2 L (34.0-46.0) % Neutrophils # 18.1 H (1.3-7.7) k/uL APTT 53.6 H (22.0-30.0) sec Sodium 129 L (137-145) mmol/L BUN 24 H (7-17) mg/dL Creatinine 0.43 L (0.52-1.04) mg/dL Glucose 146 H (74-99) mg/dL POC Glucose (mg/dL) (70-110) mg/dL Calcium 8.0 L (8.4-10.2) mg/dL AST 49 H (14-36) U/L Total Protein 4.3 L (6.3-8.2) g/dL Albumin 2.2 L (3.5-5.0) g/dL 11/21/23 Range/Units 05:52 WBC (3.8-10.6) k/uL RBC (3.80-5.40) m/uL Hgb (11.4-16.0) gm/dL Hct (34.0-46.0) % Neutrophils # (1.3-7.7) k/uL APTT (22.0-30.0) sec Sodium (137-145) mmol/L BUN (7-17) mg/dL Creatinine (0.52-1.04) mg/dL Glucose (74-99) mg/dL POC Glucose (mg/dL) 155 H (70-110) mg/dL Calcium (8.4-10.2) mg/dL AST (14-36) U/L Total Protein (6.3-8.2) g/dL Albumin (3.5-5.0) g/dL Microbiology - Last 24 Hours (Table) 11/17/23 14:37 Blood Culture - Preliminary Blood
[2023-11-21 11:23] LABS: Glucose,Whole Blood 151 mg/dL (70-110)
--- NOTE | 2023-11-21 12:08 | P.NPCON ---
History of Present Illness - Reason for Consult Consult date: 11/21/23 hyponatremia - Chief Complaint Abdominal Pain - History of Present Illness Patient is a 88-year-old female presented to the ED with a complaint of abdominal pain. She had not had bowel movement in many days prior and found to have bowel obstruction in imaging. She has been seen by general surgery and underwent open sigmoid colectomy with colostomy on 11/11/[address] Cedeno. Patient currently denies any chest pain or pressure. She denies any shortness of breath. Does admit to worsening edema of legs. She is drinking water about one glass per day. She is not eating too much and remains on TPN. Is drinking three ensures daily with her meals. Denies any other complaints at this time. Vital signs are stable. General: No acute distress. HEENT: Head exam is unremarkable. LUNGS: No acute distress. HEART: Rate and Rhythm are regular. ABDOMEN: Nontender, +colostomy EXTREMITITES: +LE edema. Review of Systems Constitutional: Reports as per HPI Past Medical History Past Medical History: Atrial Fibrillation, Cancer, Hyperlipidemia, Hypertension Additional Past Medical History / Comment(s): breast CA 1987, chroic back pain History of Any Multi-Drug Resistant Organisms: ESBL Date of last positivie culture/infection: 05/04/19-ESBL E.coli MDRO Source:: Urine Past Surgical History: Orthopedic Surgery Additional Past Surgical History / Comment(s): lumpectomy. BILAT KNEE REPL. BILAT CATARACT REM Past Anesthesia/Blood Transfusion Reactions: No Reported Reaction Past Psychological History: No Psychological Hx Reported Smoking Status: Never smoker Past Alcohol Use History: Daily Past Drug Use History: None Reported Medications and Allergies Home Medications Medication Instructions Recorded Confirmed Type Amiodarone HCl [Pacerone] 200 mg PO DAILY 05/19/22 11/05/23 History Apixaban [Eliquis] 5 mg PO BID 05/19/22 11/05/23 History Atorvastatin [Lipitor] 20 mg PO DAILY 05/19/22 11/05/23 History Calcium Carbonate [Calcium] 600 mg PO HS 05/19/22 11/05/23 History Cholecalciferol [Vitamin D3 (25 25 mcg PO HS 05/19/22 11/05/23 History Mcg = 1000 Iu)] Cyanocobalamin (Vitamin B-12) 1,000 mcg PO Q7D 05/19/22 11/05/23 History [Vitamin B-12] Levothyroxine Sodium [Synthroid] 100 mcg PO DAILY 05/19/22 11/05/23 History Losartan/Hydrochlorothiazide 1 tab PO DAILY 05/19/22 11/05/23 History [Losartan-Hctz 50-12.5 mg Tab] Multivit-Min/FA/Lycopen/Lutein 1 tab PO HS 05/19/22 11/05/23 History [Centrum Silver Tablet] Omeprazole [PriLOSEC] 20 mg PO DAILY 05/19/22 11/05/23 History Metoprolol Tartrate 25 mg PO BID 09/14/22 11/05/23 History Acetaminophen Tab [Tylenol Tab] 1,000 mg PO BID 11/05/23 11/05/23 History HYDROcodone/APAP 5-325MG [[place] 1 tab PO BID PRN 11/05/23 11/05/23 History 5-325] Magnesium Hydroxide [Milk of 2,400 mg PO DAILY PRN 11/05/23 11/05/23 History Magnesia] Mirabegron [Myrbetriq] 50 mg PO DAILY 11/05/23 11/05/23 History Super B Complex 1 tab PO Q7D 11/05/23 11/05/23 History traMADol HCL 50 mg PO TID PRN 11/05/23 11/05/23 History Allergies Allergy/AdvReac Type Severity Reaction Status Date / Time No Known Allergies Allergy Verified 11/05/23 18:15 Physical Exam Vitals: Vital Signs Temp Pulse Resp BP Pulse Ox 11/21/23 04:00 98.1 F 101 H 18 123/68 95 11/21/23 00:00 86 18 111/63 95 11/20/23 20:00 97.6 F 94 18 118/63 96 11/20/23 16:00 97.7 F 112 H 18 121/75 94 L Intake and Output 11/20/23 11/21/23 11/21/23 22:59 06:59 14:59 Intake Total 528 1044.8 317.461 Output Total 1400 800 Balance -872 244.8 317.461 Intake: IV 10 10 Invasive Line 7 10 10 Intake, IV Titration 400 1034.8 199.461 Amount Ampicillin-Sulbactam 3 gm 100 In Sodium Chloride 0.9% 100 ml @ 200 mls/hr IVPB Q6H [facility] Rx#:[id number] Anidulafungin 100 mg In 100 Sodium Chloride 0.9% 100 ml @ 84 mls/hr IVPB DAILY [facility] Rx#:[id number] Heparin Sod,Pork in 0.45% 199.461 NaCl 25,000 unit In 0.45 % NaCl 1 250ml.bag @ 12 UNITS/KG/HR 8.94 mls/hr IV .Q24H [facility] Rx#: [id number] Mvi, Adult No.4 with Vit 1034.8 K 10 ml Trace (Conc-1Ml/ Dose) 1 ml Calcium Gluconate 1 gm Sodium Acetate 80 meq Magnesium Sulfate gm 0.5 gm Potassium Phosphate 21 mmol Potassium Chloride 10 meq In Amino Acids 5 % /Dextrose 20 % 1,000 ml @ 52 mls/hr IV .[id number] [facility] Rx#:[id number] Potassium Chloride 20 meq 200 In Water For Injection 1 100ml.bag @ 50 mls/hr IVPB Q2H [facility] Rx#: [id number] Oral 118 118 Output: Urine 500 550 Stool 900 250 Other: Voiding Method External Catheter External Catheter Weight 79.8 kg Results - Lab Results Most recent lab results Calcium 8.0 mg/dL (8.4-10.2) L 11/21/23 05:11 Phosphorus 3.3 mg/dL (2.5-4.5) 11/21/23 05:11 Magnesium 1.9 mg/dL (1.6-2.3) 11/21/23 05:11 11/21/23 05:11 11/21/23 05:11 Assessment and Plan Assessment: 1. Hypervolemic mild hyponatremia. Sodium slowly worsening 132-->129 and worsening LE edema. Currently on TPN. 2. Partial large bowel obstruction due to sigmoid mass s/p sigmoid colectomy with colostomy and cholecystectomy 3. Essential HTN 4. Hypokalemia Plan: Pharmacy to adjust sodium acetate in TPN Potassium improved, can increase potassium in TPN as needed. Going to surgery tomorrow Would consider starting Lasix 20mg PO BID after surgery for edema. If sodium continues to worsen will obtain urine studies.
[2023-11-21] MEDS: DILTIAZEM DRIP BOLUS FROM BAG 1 MG SOLN IV ONE (14:27)
[2023-11-21 17:38] LABS: Glucose,Whole Blood 160 mg/dL (70-110)
--- NOTE | 2023-11-21 20:21 | P.PN ---
Subjective Progress Note Date: 11/21/23 Principal diagnosis: Reason for follow-up is leukocytosis Patient is a 88-year-old female with a past medical history significant for hypertension hyperlipidemia atrial fibrillation history of breast cancer chronic back pain presenting to the hospital for evaluation ab dominal pain and constipation has been diagnosed with a large bowel obstruction and concern for possible liver mets did have persistent worsening white count prompting this consultation.Patient is status post expiratory laparotomy with sigmoid resection for large bowel obstruction and descending colostomy open cholecystectomy, peritoneal large liver biopsy procedure completed on 11/12/2023 On today's evaluation that is 11/21/2023,the patient denies any fever or any chills, patient is breathing comfortably on room air, the patient denies chest pain shortness of breath and no significant cough, patient denies any worsening abdominal pain, no nausea vomiting no new symptoms. Patient white count is 24.2, creatinine 0.43 blood culture repeat has been negative Objective - Vital Signs Vital signs: Vital Signs Temp 98.1 F 11/21/23 04:00 Pulse 101 H 11/21/23 04:00 Resp 18 11/21/23 04:00 BP 123/68 11/21/23 04:00 Pulse Ox 95 11/21/23 04:00 FiO2 Intake & Output 11/20/23 11/21/23 11/21/23 18:59 06:59 18:59 Intake Total 6675.555 2115.8 317.461 Output Total 1980 1550 Balance -956.000 -495.2 317.461 Weight 79.8 kg Intake: IV 20 20 Invasive Line 7 20 20 Intake, IV Titration 523.102 8818.8 199.461 Amount Ampicillin-Sulbactam 3 gm 100 In Sodium Chloride 0.9% 100 ml @ 200 mls/hr IVPB Q6H [facility] Rx#:[id number] Anidulafungin 100 mg In 100 Sodium Chloride 0.9% 100 ml @ 84 mls/hr IVPB DAILY [facility] Rx#:[id number] Heparin Sod,Pork in 0.45% 250.000 199.461 NaCl 25,000 unit In 0.45 % NaCl 1 250ml.bag @ 12 UNITS/KG/HR 8.94 mls/hr IV .Q24H [facility] Rx#: [id number] Mvi, Adult No.4 with Vit 1034.8 K 10 ml Trace (Conc-1Ml/ Dose) 1 ml Calcium Gluconate 1 gm Sodium Acetate 80 meq Magnesium Sulfate gm 0.5 gm Potassium Phosphate 21 mmol Potassium Chloride 10 meq In Amino Acids 5 % /Dextrose 20 % 1,000 ml @ 52 mls/hr IV .[id number] [facility] Rx#:[id number] Potassium Chloride 20 meq 200 In Water For Injection 1 100ml.bag @ 50 mls/hr IVPB Q2H [facility] Rx#: [id number] Oral 354 118 Output: Urine 1150 1050 Stool 830 500 Other: Voiding Method External Catheter External Catheter - Exam GENERAL DESCRIPTION: An elderly female lying in bed in no distress RESPIRATORY SYSTEM: Unlabored breathing , decreased breath sounds at bases HEART: S1 S2 regular rate and rhythm , ABDOMEN: Soft , mild distention EXTREMITIES: No edema feet - Labs CBC & Chem 7: 11/21/23 05:11 11/21/23 05:11 Labs: Abnormal Lab Results - Last 24 Hours (Table) 11/20/23 11/20/23 11/20/23 Range/Units 11:48 17:39 23:51 WBC (3.8-10.6) k/uL RBC (3.80-5.40) m/uL Hgb (11.4-16.0) gm/dL Hct (34.0-46.0) % Neutrophils # (1.3-7.7) k/uL APTT (22.0-30.0) sec Sodium (137-145) mmol/L BUN (7-17) mg/dL Creatinine (0.52-1.04) mg/dL Glucose (74-99) mg/dL POC Glucose (mg/dL) 146 H 170 H 139 H (70-110) mg/dL Calcium (8.4-10.2) mg/dL AST (14-36) U/L Total Protein (6.3-8.2) g/dL Albumin (3.5-5.0) g/dL 11/21/23 11/21/23 11/21/23 Range/Units 05:11 05:11 05:11 WBC 24.2 H (3.8-10.6) k/uL RBC 3.13 L (3.80-5.40) m/uL Hgb 10.0 L (11.4-16.0) gm/dL Hct 31.2 L (34.0-46.0) % Neutrophils # 18.1 H (1.3-7.7) k/uL APTT 53.6 H (22.0-30.0) sec Sodium 129 L (137-145) mmol/L BUN 24 H (7-17) mg/dL Creatinine 0.43 L (0.52-1.04) mg/dL Glucose 146 H (74-99) mg/dL POC Glucose (mg/dL) (70-110) mg/dL Calcium 8.0 L (8.4-10.2) mg/dL AST 49 H (14-36) U/L Total Protein 4.3 L (6.3-8.2) g/dL Albumin 2.2 L (3.5-5.0) g/dL 11/21/23 Range/Units 05:52 WBC (3.8-10.6) k/uL RBC (3.80-5.40) m/uL Hgb (11.4-16.0) gm/dL Hct (34.0-46.0) % Neutrophils # (1.3-7.7) k/uL APTT (22.0-30.0) sec Sodium (137-145) mmol/L BUN (7-17) mg/dL Creatinine (0.52-1.04) mg/dL Glucose (74-99) mg/dL POC Glucose (mg/dL) 155 H (70-110) mg/dL Calcium (8.4-10.2) mg/dL AST (14-36) U/L Total Protein (6.3-8.2) g/dL Albumin (3.5-5.0) g/dL Microbiology - Last 24 Hours (Table) 11/17/23 14:37 Blood Culture - Preliminary Blood Assessment and Plan (1) Leukocytosis Current Visit: Yes Status: Acute Code(s): D72.829 - ELEVATED WHITE BLOOD CELL COUNT, UNSPECIFIED SNOMED Code(s): 127846960 (2) Partial bowel obstruction Current Visit: Yes Status: Acute Priority: High Code(s): K56.600 - PARTIAL INTESTINAL OBSTRUCTION, UNSPECIFIED TO CAUSE SNOMED Code(s): 05425159815781453 Plan: 1patient with leukocytosis which is likely multifactorial in this patient admitted to hospital with abdominal pain and constipation has been diagnosed with a large bowel obstruction with a question of possible mass versus colitis mass may be favored as the patient did have multiple lesion in the liver concerning for metastatic disease with worsening of the white count despite being on Rocephin and Flagyl we need to broaden her antibiotic coverage 2-blood cultures has been repeated currently pending 3-patient is status post extensive abdominal surgery, abdominal cultures now growing Enterococcus faecalis penicillin sensitive and Bacteroides species 4patient did have repeat CT abdominal pelvis that has been suggestive of progression of her liver metastasis may be contributing to some of this elevated white count per discussion with the surgery there was a possible necrotic tumor to the liver 5the patient white count is trending down, will continue with Unasyn Flagyl and Eraxis and monitor clinical course closely Dictation was produced using eROI dictation software. please excuse any grammatical, word or spelling errors. Time with Patient: Less than 30
[2023-11-21] MEDS: MVI, ADULT NO.4 WITH VIT K 10 ML, TRACE (CONC-1ML/DOSE) 1 ML, CALCIUM GLUCONATE 1 GM, S... IV SCH (21:17)
[2023-11-22 00:55] LABS: Glucose,Whole Blood 162 mg/dL (70-110)
[2023-11-22 05:50] LABS: Glucose,Whole Blood 171 mg/dL (70-110)
[2023-11-22 08:09] LABS: Basophils % (A) 0 %; Eosinophils # (A) 0.2 k/uL (0-0.7); Eosinophils % (A) 1 %; HCT 31.3 % (34.0-46.0); Hypochromasia Slight; Lymphocytes # (A) 3.5 k/uL (1.0-4.8); Lymphocytes % (A) 17 %; MCH 31.8 pg (25.0-35.0); MCHC 31.8 g/dL (31.0-37.0); MCV 99.8 fL (80.0-100.0); Macrocytosis Slight; Mean Platelet Volume 8.3; Monocytes # (A) 0.8 k/uL (0-1.0); Monocytes % (A) 4 %; Neutrophils # (A) 16.3 k/uL (1.3-7.7); Neutrophils % (A) 77 %; Platelet Count 463 k/uL (150-450); RBC 3.13 m/uL (3.80-5.40); WBC 21.2 k/uL (3.8-10.6)
[2023-11-22 08:25] LABS: ALT 28 U/L (4-34); AST 32 U/L (14-36); African American GFR (CKD) >90 (>60 ml/min/1.73 sqM); Albumin 2.2 g/dL (3.5-5.0); Alkaline Phosphatase 115 U/L (38-126); Anion Gap 4 mmol/L; Blood Urea Nitrogen 24 mg/dL (7-17); Calcium 8.3 mg/dL (8.4-10.2); Carbon Dioxide 26 mmol/L (22-30); Chloride 101 mmol/L (98-107); Glucose 164 mg/dL (74-99); Magnesium 1.9 mg/dL (1.6-2.3); Non-African American GFR(CKD) >90 (>60 ml/min/1.73 sqM); Phosphorus 3.6 mg/dL (2.5-4.5); Potassium 4.2 mmol/L (3.5-5.1); Sodium 131 mmol/L (137-145); Total Bilirubin 0.4 mg/dL (0.2-1.3); Total Protein 4.6 g/dL (6.3-8.2)
--- NOTE | 2023-11-22 08:46 | P.PN ---
Subjective Progress Note Date: 11/22/23 The patient is an 88-year-old female patient with extensive medical history was admitted to the hospital with bowel obstruction/possible ischemic bowel underwent surgery and we are following up with the patient regarding atrial fibrillation. November 22, 2023 The patient was seen and evaluated this morning. She is in atrial fibrillation with controlled heart rate. She is hemodynamically stable. She was on heparin IV but that is on hold because she is going for stoma revision. She is on amiodarone as well as Cardizem. The examination is remarkable for irregular rhythm with a stable vital signs and diminished breathing sounds bilaterally and no edema was noted Assessment Bowel obstruction status post surgery Atrial fibrillation with controlled heart rate Multiple comorbid conditions Plan Continue current medical regimen including the current doses of oral AV cam claudette agents Restart the patient back on heparin IV Consider switching the patient to oral anticoagulation Follow-up with the patient Objective - Vital Signs Vital signs: Vital Signs Temp 98.2 F 11/22/23 04:00 Pulse 89 11/22/23 04:00 Resp 16 11/22/23 04:00 BP 130/66 11/22/23 04:00 Pulse Ox 94 L 11/22/23 04:00 FiO2 Intake & Output 11/21/23 11/22/23 11/22/23 18:59 06:59 18:59 Intake Total 455.461 183.767 Output Total 700 500 Balance -244.539 -316.233 Weight 78.6 kg Intake: IV 20 Invasive Line 4 10 Invasive Line 7 10 Intake, IV Titration 199.461 183.767 Amount Heparin Sod,Pork in 0.45% 199.461 183.767 NaCl 25,000 unit In 0.45 % NaCl 1 250ml.bag @ 12 UNITS/KG/HR 8.94 mls/hr IV .Q24H [facility] Rx#: [id number] Oral 236 Output: Urine 500 400 Stool 200 100 Other: Voiding Method External Catheter External Catheter - Labs CBC & Chem 7: 11/22/23 07:33 11/22/23 07:33 Labs: Abnormal Lab Results - Last 24 Hours (Table) 11/21/23 11/21/23 11/22/23 Range/Units 11:21 17:37 00:50 WBC (3.8-10.6) k/uL RBC (3.80-5.40) m/uL Hgb (11.4-16.0) gm/dL Hct (34.0-46.0) % Plt Count (150-450) k/uL Neutrophils # (1.3-7.7) k/uL Sodium (137-145) mmol/L BUN (7-17) mg/dL Creatinine (0.52-1.04) mg/dL Glucose (74-99) mg/dL POC Glucose (mg/dL) 151 H 160 H 162 H (70-110) mg/dL Calcium (8.4-10.2) mg/dL Total Protein (6.3-8.2) g/dL Albumin (3.5-5.0) g/dL 11/22/23 11/22/23 11/22/23 Range/Units 05:49 07:33 07:33 WBC 21.2 H (3.8-10.6) k/uL RBC 3.13 L (3.80-5.40) m/uL Hgb 10.0 L (11.4-16.0) gm/dL Hct 31.3 L (34.0-46.0) % Plt Count 463 H (150-450) k/uL Neutrophils # 16.3 H (1.3-7.7) k/uL Sodium 131 L (137-145) mmol/L BUN 24 H (7-17) mg/dL Creatinine 0.39 L (0.52-1.04) mg/dL Glucose 164 H (74-99) mg/dL POC Glucose (mg/dL) 171 H (70-110) mg/dL Calcium 8.3 L (8.4-10.2) mg/dL Total Protein 4.6 L (6.3-8.2) g/dL Albumin 2.2 L (3.5-5.0) g/dL
[2023-11-22] MEDS: INSULIN DETEMIR (LEVEMIR) 100 UNIT/ML SYR SQ SCH (08:57)
--- NOTE | 2023-11-22 11:39 | P.ANPRN ---
Procedure Note - Anesthesia - Nerve Block Performed Bilateral Erector Spinae Single Time Out Performed: Yes Date of Procedure: 11/22/23 Procedure Start Time: : Procedure Stop Time: Location of Patient: PreOp Indication: Acute Post-Operative Pain, Analgesia, Requested by Surgeon Sedation Type: Sedate with meaningful contact maintained Preparation: Sterile Prep Position: Left Lateral Needle Types: Pajunk Needle Gauge: 21 Ultrasound used to visualize needle placement: Yes Ultrasound used to observe medication spread: Yes Injectate: 0.5% Ropivacaine (see comment for volume) (Ropiv 20ml +Decadron 4mg----Each side.) Blood Aspirated: No Pain Paresthesia on Injection Noted: No Resistance on Injection: Normal Image Stored and Saved: Yes Events: Uneventful and Well Tolerated
[2023-11-22] MEDS: ONDANSETRON 4 MG/2 ML VIAL IVP PRN (11:44)
[2023-11-22] MEDS ORDERED: RX INFO: IV CONTRAST WAS GIVEN 1 EACH MISC MISCELLANE PRN (11:46)
[2023-11-22] MEDS: IV FLUID CONTINUATION 1,000 ML IV ONE (11:48)
[2023-11-22] MEDS: DEXAMETHASONE SOD PHOSPHATE 4 MG/ML 1 ML VIAL IVP STA (11:51)
[2023-11-22] MEDS ORDERED: DEXAMETHASONE SOD PHOSPHATE 4 MG/ML 1 ML VIAL ONE (12:30)
[2023-11-22] MEDS ORDERED: PROPOFOL 10 MG/ML 20 ML VIAL IV ONE (12:30)
[2023-11-22] MEDS ORDERED: ROPIVACAINE 5 MG/ML 30 ML VIAL ONE (12:30)
[2023-11-22] MEDS ORDERED: SUCCINYLCHOLINE CHLORIDE 200 MG/10 ML VIAL IV ONE (12:30)
[2023-11-22] MEDS ORDERED: ROCURONIUM 10 MG/ML (5 ML VIAL) IV ONE (12:30)
[2023-11-22] MEDS ORDERED: LIDOCAINE 1% INJ 10MG/ML (20 ML MDV) ONE (12:30)
[2023-11-22] MEDS ORDERED: NEOSTIGMINE 1 MG/ML 10 ML VIAL ONE (12:30)
[2023-11-22] MEDS ORDERED: SUGAMMADEX SODIUM 200 MG/2 ML SDV IV ONE (12:30)
[2023-11-22] MEDS ORDERED: fentaNYL (PF) 50 MCG/ML 2 ML AMP ONE (12:30)
[2023-11-22] MEDS ORDERED: GLYCOPYRROLATE 0.2 MG/ML 2 ML VIAL ONE (12:30)
[2023-11-22] MEDS ORDERED: PHENYLEPHRINE-0.9% NACL SYG 1,000 MCG/10 ML SYRINGE ONE (12:30)
--- NOTE | 2023-11-22 12:44 | P.PN ---
Subjective Progress Note Date: 11/22/23 Subjective: Patient seen and examined at bedside. No acute events overnight. Occasional abdominal pain, relieved with pain medications. Denies any nausea or vomiting. Still having output from her ostomy. Has not been getting out of bed into the chair. Has an external urinary catheter Pertinent positives and negatives as discussed above, a complete review of systems was performed and all other systems are negative. Vitals: Signs Reviewed Physical Exam: General: nontoxic, no distress, appears at stated age Derm: warm, dry, intact Head: atraumatic, normocephalic, symmetric Eyes: EOMI, no lid lag, anicteric sclera Mouth: no lip lesion, mucus membranes moist Cardiovascular: S1 S2 reg, no murmur, rubs, or gallops Lungs: CTA bilateral, no rhonchi, no rales, no accessory muscle use Abdominal: distended, tender to palpataion, no appreciable organomegaly, ostomy in place, stoma dusky, necrotic Extremities: no gross muscle atrophy, no edema, no contractures Neuro: Alert, Oriented, CNII-XII grossly intact Psych: well appearing, appropriate affect Data Received Today: Pertinent Labs: WBC 21.2, hemoglobin 10, platelet 463, sodium 131, creatinine 0.39, blood sugars range between 1 62-1 71, magnesium 1.9 Imaging: No new imaging Assessment and Plan: 88-year-old female with past medical history of IBS, hypothyroid, hypertension, breast cancer, and A-fib presents with abdominal pain associated with constipation. Initially admitted for partial large bowel obstruction secondary to sigmoid mass. Further workup showed metastatic well-differentiated neuroendocrine tumor. S/p sigmoid colectomy with costomy and cholecystectomy. However does have ischemic bowel, will need subtotal colectomy. She is medically optimized for surgery. Partial large bowel obstruction due to sigmoid mass s/p sigmoid colectomy with costomy and cholecystectomy Metastatic well-differentiated neuroendocrine tumor Leukocytosis Possible peritonitis Now has ischemic enteritis with colitis, needs further ex lap with likely total versus subtotal colectomy with ileostomy today -was on TPN Morphine 2 mg ivp q4h prn for severe pain, monitor for sedation Oncology following, Will obtain PET scan outpatient, Serotonin, and 24-hour urine HIAA pending, Chromogranin A 1939 -ID following, patient continued on Unasyn 3 g IV every 6 hours, Eraxis 100 mg IV daily, Flagyl 500 p.o. 3 times daily - Surgery today. Pt NPO since midnight. Small bilateral pleural effusion Possible right lung metastatic disease - chest ultrasound: left small to moderate pleural effusion - pulmonology following, no thoracentesis necessary -Patient on room air Atrial fibrillation w/ rvr, now rate controlled Monitoring on telemetry. Cardiology note reviewed, continue Metoprolol 100 mg PO BID and 50 mg daily at bedtime for rate control. continue amiodarone 200 mg daily. heparin drip on hold for procedure, monitor APTT, daily CBC, monitor for bleeding Keep K > 4, magnesium > 2 Will monitor potassium and magnesium. Follow-up BMP On IV Cardizem drip 125 mls at 5 mls/hr Hypoalbuminemia Anasarca Heart failure with reduced ejection fraction 35 to 40%, not in exacerbation Hyponatremia, likely hypervolemic, now likely euvolemia -Nephrology following, likely hyponatremia secondary to sodium acetate content in TPN, sodium now improving -was on IV lasix as well, currently on hold Hyperglycemia Hypoglycemia, resolved Levemir decreased to 5 units daily as patient will be going to surgery today, will likely need increase once TPN is resumed On insulin subcu sliding scale Will continue to monitor for hypoglycemia - A1c 6.0, prediabetic, possibly reactive Hypokalemia, resolved Metabolic acidosis with high anion gap, resolved Macrocytosis, resolved Hypomagnesemia, resolved Hypothyroidism, chronic - Continue levothyroxine -Likely has euthyroid sick syndrome -TSH elevated, free T4 within normal limits, consider repeating in 4 to 6 weeks Urinary incontinence, chronic -External catheter in place Hypertension, currently controlled - Hold home HCTZ and losartan Dyslipidemia, chronic Atorvastatin 20 mg PO F: TPN E: Replete as needed N: Low fiber diet A: fall precautions, hypoglycemia protocol, PT recommending inpatient rehab versus subacute rehab DVT ppx: Heparin drip Code status: No code w/instructions Anticipated discharge place: pending clinical course Anticipated discharge time: pending clinical course I have seen and evaluated the patient today. Discussed with the resident and agree with resident's findings and plan as documented in the resident's note. Changes highlighted in blue font. Objective - Vital Signs Vital signs: Vital Signs Temp 96.9 F L 11/22/23 11:04 Pulse 72 11/22/23 11:04 Resp 16 11/22/23 11:04 BP 144/60 11/22/23 11:04 Pulse Ox 93 L 11/22/23 11:04 FiO2 Intake & Output 11/21/23 11/22/23 11/22/23 18:59 06:59 18:59 Intake Total 455.461 183.767 120.583 Output Total 700 500 100 Balance -244.539 -316.233 20.583 Weight 78.6 kg Intake: IV 20 Invasive Line 4 10 Invasive Line 7 10 Intake, IV Titration 199.461 183.767 120.583 Amount Diltiazem 125 mg In 120.583 Sodium Chloride 0.9% 100 ml @ 5 MG/HR 5 mls/hr IV .Q24H [facility] Rx#:[id number] Heparin Sod,Pork in 0.45% 199.461 183.767 NaCl 25,000 unit In 0.45 % NaCl 1 250ml.bag @ 12 UNITS/KG/HR 8.94 mls/hr IV .Q24H [facility] Rx#: [id number] Oral 236 Output: Urine 500 400 Stool 200 100 100 Other: Voiding Method External Catheter External Catheter External Catheter - Labs CBC & Chem 7: 11/22/23 07:33 11/22/23 07:33 Labs: Abnormal Lab Results - Last 24 Hours (Table) 11/21/23 11/22/23 11/22/23 Range/Units 17:37 00:50 05:49 WBC (3.8-10.6) k/uL RBC (3.80-5.40) m/uL Hgb (11.4-16.0) gm/dL Hct (34.0-46.0) % Plt Count (150-450) k/uL Neutrophils # (1.3-7.7) k/uL Sodium (137-145) mmol/L BUN (7-17) mg/dL Creatinine (0.52-1.04) mg/dL Glucose (74-99) mg/dL POC Glucose (mg/dL) 160 H 162 H 171 H (70-110) mg/dL Calcium (8.4-10.2) mg/dL Total Protein (6.3-8.2) g/dL Albumin (3.5-5.0) g/dL 11/22/23 11/22/23 Range/Units 07:33 07:33 WBC 21.2 H (3.8-10.6) k/uL RBC 3.13 L (3.80-5.40) m/uL Hgb 10.0 L (11.4-16.0) gm/dL Hct 31.3 L (34.0-46.0) % Plt Count 463 H (150-450) k/uL Neutrophils # 16.3 H (1.3-7.7) k/uL Sodium 131 L (137-145) mmol/L BUN 24 H (7-17) mg/dL Creatinine 0.39 L (0.52-1.04) mg/dL Glucose 164 H (74-99) mg/dL POC Glucose (mg/dL) (70-110) mg/dL Calcium 8.3 L (8.4-10.2) mg/dL Total Protein 4.6 L (6.3-8.2) g/dL Albumin 2.2 L (3.5-5.0) g/dL
--- NOTE | 2023-11-22 12:55 | P.PN ---
Subjective Progress Note Date: 11/22/23 CHIEF COMPLAINT: Bowel obstruction with metastatic cancer HISTORY OF PRESENT ILLNESS: The patient is a 88-year-old female admitted for obstructing colon cancer. She is status post diverting ostomy. She has atrial fibrillation with rapid ventricular response. Patient has persistent bowel ischemia from her surgery and also abdomen or CT scan. Patient's ostomy functioning however with signs of infarct. She denies abdominal pain. WBC was trending down down trending upward. ROS: No reports of nausea and vomiting. No fevers or chills. No new chest pain. No productive sputum PHYSICAL EXAM: VITAL SIGNS: Reviewed CONSTITUTIONAL: Well developed and in no acute distress. EYES: Conjuctivae without sclera icterus. Extraocular movements grossly intact. HEAD, EARS, NOSE, THROAT: Moist buccal mucosa. Head is atraumatic, normocephalic. Hears conversational speech. No nasal drainage. RESPIRATORY: Non-labored respirations and equal bilateral excursions. CARDIOVASCULAR: Palpable 2+ radial pulses. ABDOMEN: Midline incision intact without infection. Ostomy with infarction however stool. MUSCULOSKELETAL: No gross deformity of the lower extremities noted. No clubbing. No cyanosis. SKIN: Good skin turgor. Well perfused. NEUROLOGIC: Cranial nerves II through XII grossly intact. No focal or lateralizing signs. PSYCH: Appropriate affect. Alert and oriented to person, place and time. CLINICAL LABS: Reviewed. ASSESSMENT: 1. Metastatic neuroendocrine colon carcinoma 2. New cavitary liver lesion likely causing elevated white blood cell count 3. Ischemic enteritis with colitis 4. Protein malnutrition, moderate to severe 5. Generalized anasarca with ascites PLAN: 1. Patient reports eating high-protein diet over the weekend which should help with her overall oncotic pressure and generalized ascites. 2. Colonoscopy to assess mucosal injury from ischemic colitis described. 3. Pending results of colonoscopy was revision of ostomy versus total abdominal colectomy with ileostomy described. 4. Options including nonsurgical intervention were also reviewed for which the family and daughter at bedside wish to proceed Objective - Vital Signs Vital signs: Vital Signs Temp 96.9 F L 11/22/23 11:04 Pulse 72 11/22/23 11:04 Resp 16 11/22/23 11:04 BP 144/60 11/22/23 11:04 Pulse Ox 93 L 11/22/23 11:04 FiO2 Intake & Output 11/21/23 11/22/23 11/22/23 18:59 06:59 18:59 Intake Total 455.461 183.767 220.583 Output Total 700 500 100 Balance -244.539 -316.233 120.583 Weight 78.6 kg Intake: IV 20 100 Invasive Line 4 10 Invasive Line 7 10 Intake, IV Titration 199.461 183.767 120.583 Amount Diltiazem 125 mg In 120.583 Sodium Chloride 0.9% 100 ml @ 5 MG/HR 5 mls/hr IV .Q24H [facility] Rx#:[id number] Heparin Sod,Pork in 0.45% 199.461 183.767 NaCl 25,000 unit In 0.45 % NaCl 1 250ml.bag @ 12 UNITS/KG/HR 8.94 mls/hr IV .Q24H [facility] Rx#: [id number] Oral 236 Output: Urine 500 400 Stool 200 100 100 Other: Voiding Method External Catheter External Catheter External Catheter - Labs CBC & Chem 7: 11/22/23 07:33 11/22/23 07:33 Labs: Abnormal Lab Results - Last 24 Hours (Table) 11/21/23 11/22/23 11/22/23 Range/Units 17:37 00:50 05:49 WBC (3.8-10.6) k/uL RBC (3.80-5.40) m/uL Hgb (11.4-16.0) gm/dL Hct (34.0-46.0) % Plt Count (150-450) k/uL Neutrophils # (1.3-7.7) k/uL Sodium (137-145) mmol/L BUN (7-17) mg/dL Creatinine (0.52-1.04) mg/dL Glucose (74-99) mg/dL POC Glucose (mg/dL) 160 H 162 H 171 H (70-110) mg/dL Calcium (8.4-10.2) mg/dL Total Protein (6.3-8.2) g/dL Albumin (3.5-5.0) g/dL 11/22/23 11/22/23 Range/Units 07:33 07:33 WBC 21.2 H (3.8-10.6) k/uL RBC 3.13 L (3.80-5.40) m/uL Hgb 10.0 L (11.4-16.0) gm/dL Hct 31.3 L (34.0-46.0) % Plt Count 463 H (150-450) k/uL Neutrophils # 16.3 H (1.3-7.7) k/uL Sodium 131 L (137-145) mmol/L BUN 24 H (7-17) mg/dL Creatinine 0.39 L (0.52-1.04) mg/dL Glucose 164 H (74-99) mg/dL POC Glucose (mg/dL) (70-110) mg/dL Calcium 8.3 L (8.4-10.2) mg/dL Total Protein 4.6 L (6.3-8.2) g/dL Albumin 2.2 L (3.5-5.0) g/dL
[2023-11-22] MEDS: DEXAMETHASONE SOD PHOSPHATE 4 MG/ML 1 ML VIAL IM STA (13:39)
[2023-11-22 14:30] VITALS: BMI 32.7
--- NOTE | 2023-11-22 15:11 | P.PN ---
Progress Note - Text Progress Note Date: 11/22/23 Intraoperative findings were reviewed with the patient's daughter including findings from colonoscopy with viable colon and limited necrosis of ostomy due to ischemic colitis. Ostomy was revised with viable tissue and bleeding. Images of resected colostomy and residual ostomy given to daughter. Reiteration of high protein diet for maximal recovery reviewed. At this time, no additional surgical intervention anticipated. I resumed the patient's Eliquis. Heparin drip is discontinued.
--- NOTE | 2023-11-22 15:18 | P.OP ---
Date of Procedure: 11/22/23 Description of Procedure: SURGEON: RAIZA ESCOBAR MD PREOPERATIVE DIAGNOSES: 1. Ischemic colitis with necrosis of colostomy 2. Small and large bowel ischemia due to low flow state from atrial fibrillation 3. Liver neoplasm of uncertain malignant potential 4. Atrial fibrillation with rapid ventricular response 5. Gastroesophageal reflux disease 6. Hypothyroidism 7. Hypertensive heart disease 8. Hyperlipidemia 9. Chronic anticoagulation 10. Chronic lower back pain 11. History of breast cancer 12. Acute on chronic hydrops cholecystitis, 20 cm 13. Abdominal ascites. 14. Metastatic neuroendocrine tumor causing large bowel obstruction OPERATION: 1. Intraoperative colonoscopy via stoma for ischemic colitis 2. Revision of descending colostomy. 3. Drainage of peritoneal ascites, 250 cc ANESTHESIA: General ESTIMATED BLOOD LOSS: 30mL. SPECIMENS REMOVED: 1. Descending colostomy COMPLICATIONS: None. Condition: stable Disposition: floor Operative Findings: 1. Intraoperative colonoscopy via stoma demonstrated localized full-thickness necrosis of ostomy involving 4 cm of the descending colon which was resected 2. Retreat viable mucosa and colon of descending colon with adequate length without tension or torsion 3. Upon release of colostomy, over 250 cc of peritoneal ascites decompressed from the abdomen, clear INDICATIONS: The patient is a 88-year-old female who presents with low flow state from chronic atrial fibrillation and pre-existing large and small bowel ischemia. Her prior procedures performed demonstrated features of diffuse small and large bowel ischemia over 1 week ago. At bedside, ostomy became gangrenous. White blood cell count continues to remain elevated. Medical interventions including night optimization, cardiac optimization, heparin drip, TPN, high- protein diet was performed with adjustment of antibiotics. Patient was optimized prior to proceeding with second operation. Surgical plan including intraoperative colonoscopy to identify extent of resection and possible total abdominal colectomy for diffuse large bowel infarction were described with possible end ileostomy. Benefits and risks was described to the patient and her daughter including the option of no further surgical dimension as a patient choice. Informed consent was obtained. DESCRIPTION: Patient was brought to the operating room. She was on scheduled IV antibiotics. The patient was placed in supine position whereby general induction was performed. Parra catheter was placed. A timeout protocol was performed with the surgical team including planned procedure of initial colonoscopy followed by ostomy revision versus exploratory laparotomy with total abdominal colectomy. After intubation, the ostomy appliance was discontinued. A 4 x 4 gauze was used to cleanse the ostomy which demonstrated immediate sloughing of the mucosa of the ostomy. The mucosal of the ostomy was detaching from its skin edges. The mucosa of the ostomy was completely necrotic. A Olympus colonoscope was placed within to the ostomy whereby the angle of the ostomy limited further progression of the scope. Four (4) cm distal to the orifice, the mucosa was completely healthy and pink. This confirmed that only the orifice of the ostomy was necrotic hence a localized col ostomy revision is feasible. Information was immediately relayed to the patient's daughter regarding a localized approach for her surgery. At this point, the patient was prepared for a colostomy revision. The ostomy was covered with a 4 x 4 sponge and a Tegaderm was placed over the ostomy. Abdomen had been prepped and draped in the standard sterile fashion. Ioban draping was also placed to minimize any contamination to the skin and pre- existing midline incision. Next, Metzenbaum scissors was used to detach the ostomy circumferentially. The tissue was within an dark and completely necroti c. Four (4) cm distally, near full-thickness defect of erosion of the ostomy was found near the fascia. The fascia around the ostomy was widened using electro-Bovie cautery at the 3:00 and 6 o'clock position after using Army-Perryman retractors to allow mobilization of the descending colon through the skin. The subcutaneous tissue was beefy red and the fat was healthy and yellow. Circumferentially the necrotic ostomy was delivered out of the abdomen and immediately clear ascites was emanating from the abdomen and suctioned. Over 250 cc of clear ascites was aspirated from the abdomen. During the procedure, the patient had increased abdominal pressure allowing further mobilization and delivery of the descending colon through the ostomy. A 60 mm black staple load was used with a powered Ethicon stapler across the colostomy. The rest of the ostomy was carefully inspected with additional resection until healthy bleeding tissue was obtained. The staple edge was divided and removed demarcated ischemic edges. Next quadrant sutures at 12 o'clock, 3 o'clock, 6 o'clock, and 9 o'clock position was made using mucosal and dermal bites using 3-0 Vicryl. Interrupted 3-0 Vicryl was placed in between all quadrants sutures to completely mature the ostomy. Hemostasis was checked. A Coloplast was then placed. The ostomy was healthy pink and easily bleeding confirming a completely viable ostomy. At the end of the procedure, needle, sponge, and instrument count had been verified correct by nursing surgical services director. The patient's family was updated on level of care including images of resected colostomy and viable current ostomy.
[2023-11-22 15:47] LABS: Glucose,Whole Blood 245 mg/dL (70-110)
--- NOTE | 2023-11-22 17:00 | CT ---
EXAMINATION TYPE: CT chest w con CT DLP: 347 mGycm, Automated exposure control for dose reduction was used. DATE OF EXAM: 11/22/2023 4:52 PM COMPARISON: 11/18/2023. CLINICAL INDICATION:Female, 88 years old with history of new dx neuroendocrine tumor, staging; PHH, n ew dx neuroendocrine tumor, staging. Post-op abdominal surgery. TECHNIQUE: Multiple axial images were obtained through the chest. Sagittal and coronal reformats were created for review. Contrast used:100ml mL of Isovue 300 with IV Contrast (None if empty) Oral contrast used: (None if empty) FINDINGS: LUNGS/ PLEURA: Small bilateral pleural effusion with associated atelectasis. No airspace consolidatio n definitively visualized. No pneumothorax. No pulmonary nodule or mass identified. AIRWAY: Patent and unremarkable. HEART: The heart is mildly increased in size..Atherosclerosis of the arterial vasculature. MEDIASTINUM: No gross evidence of adenopathy. VASCULATURE: No aortic aneurysm. MUSCULOSKELETAL: Sclerotic lesion within the anterior aspect of T7 which is indeterminate and suspici ous. Measuring 18 mm. SOFT TISSUES/LYMPH NODES: Breast calcifications bilaterally. LOWER NECK: No significant findings. UPPER ABDOMEN: Trace free fluid in the upper abdomen. There isr low density mass in the dome of the l iver measuring at least 37 x 34 mm other hyperenhancing mass is also present. IMPRESSION: 1. No evidence for lymphadenopathy or pulmonary mass/nodule. There is a sclerotic area in the anteri or aspect of T7 which is indeterminate. No other lesions are definitely visualized. 2. Small bilateral pleural effusions with trace ascites. 3. Hepatic metastatic disease as seen on priors.
[2023-11-22 17:52] LABS: Glucose,Whole Blood 229 mg/dL (70-110)
[2023-11-22] MEDS: APIXABAN 5 MG TAB PO SCH (20:01)
[2023-11-22 23:35] LABS: Glucose,Whole Blood 235 mg/dL (70-110)
[2023-11-23 06:23] LABS: Glucose,Whole Blood 259 mg/dL (70-110)
[2023-11-23 07:56] LABS: Basophils % (A) 0 %; Eosinophils % (A) 0 %; HCT 29.7 % (34.0-46.0); HGB 9.4 gm/dL (11.4-16.0); Hypochromasia Slight; Lymphocytes # (A) 3.8 k/uL (1.0-4.8); Lymphocytes % (A) 16 %; MCH 32.1 pg (25.0-35.0); MCHC 31.7 g/dL (31.0-37.0); MCV 101.3 fL (80.0-100.0); Macrocytosis Slight; Mean Platelet Volume 8.5; Monocytes # (A) 0.8 k/uL (0-1.0); Monocytes % (A) 3 %; Neutrophils % (A) 79 %; Platelet Count 477 k/uL (150-450); RBC 2.93 m/uL (3.80-5.40); RDW 14.1 % (11.5-15.5); WBC 22.9 k/uL (3.8-10.6)
[2023-11-23 08:12] LABS: ALT 25 U/L (4-34); AST 25 U/L (14-36); African American GFR (CKD) >90 (>60 ml/min/1.73 sqM); Albumin 2.2 g/dL (3.5-5.0); Alkaline Phosphatase 127 U/L (38-126); Anion Gap 2 mmol/L; Blood Urea Nitrogen 23 mg/dL (7-17); Calcium 8.2 mg/dL (8.4-10.2); Carbon Dioxide 29 mmol/L (22-30); Chloride 100 mmol/L (98-107); Glucose 230 mg/dL (74-99); Magnesium 2.1 mg/dL (1.6-2.3); Non-African American GFR(CKD) 89 (>60 ml/min/1.73 sqM); Phosphorus 3.6 mg/dL (2.5-4.5); Potassium 4.7 mmol/L (3.5-5.1); Sodium 131 mmol/L (137-145); Total Bilirubin 0.3 mg/dL (0.2-1.3); Total Protein 4.5 g/dL (6.3-8.2)
--- NOTE | 2023-11-23 11:25 | P.PN ---
Subjective Progress Note Date: 11/23/23 CHIEF COMPLAINT: Large bowel obstruction with metastatic cancer HISTORY OF PRESENT ILLNESS: The patient is a 88-year-old female who presents with low flow state from chronic atrial fibrillation and pre-existing large and small bowel ischemia. Her prior procedures performed demonstrated features of diffuse small and large bowel ischemia over 1 week ago. Patient is post day #1 status post intraoperative colonoscopy via stoma for ischemic colitis. Revision of descending colostomy. Drainage of peritoneal ascites. And partial colectomy. Patient is lying in bed comfortably. She reports her pain is controlled. She denies any nausea or vomiting. She is tolerating her diet. She has stool through her ostomy. Afebrile. WBC 22.9 Hgb 9.4 platelets 477 sodium 131 potassium 4.7 creatinine 0.47 albumin 2.2 PHYSICAL EXAM: VITAL SIGNS: Reviewed GENERAL: Well-developed in no acute distress. HEENT: No sclera icterus. Extraocular movements grossly intact. Moist buccal mucosa. Head is atraumatic, normocephalic. Hears conversational speech. No nasal drainage. NECK: Supple without lymphadenopathy. CHEST: Non-labored respirations and equal bilateral excursions. CARDIOVASCULAR: Palpable 2+ radial pulses. ABDOMEN: soft, mildly distended. Incision site clean dry and intact. Ostomy on the left with beefy red stoma. Stool present in colostomy bag MUSCULOSKELETAL: No clubbing or cyanosis. NEUROLOGIC: No focal or lateralizing signs. Cranial nerves II through XII grossly intact. PSYCH: Appropriate affect. Alert and oriented to person, place and time. SKIN: Well perfused. Good skin turgor. ASSESSMENT: 1. Ischemic colitis with necrosis of colostomy 2. Small and large bowel ischemia due to low flow state from atrial fibrillation 3. Liver neoplasm of uncertain malignant potential 4. Atrial fibrillation with rapid ventricular response 5. Gastroesophageal reflux disease 6. Hypothyroidism 7. Hypertensive heart disease 8. Hyperlipidemia 9. Chronic anticoagulation 10. Chronic lower back pain 11. History of breast cancer 12. Acute on chronic hydrops cholecystitis, 20 cm 13. Abdominal ascites. 14. 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 Severe protein calorie malnutrition PLAN: -Continue a high-protein diet -Continue TPN for now -Eliquis has been resumed -Encourage patient to increase activity level -Encourage patient to use incentive spirometer -Antibiotics per infectious disease Physician Tablet Machine Operator note has been reviewed by physician. Signing provider agrees with the documented findings, assessment, and plan of care. As above. Please see additional documentation below. I was notified by on-call surgeon regarding nurses concern for new hypotension and patient's new increased abdominal pain at 2121 this tonight. I notified the nurse to get an abdominal x-ray. Patient is postop day 1 from revision of ostomy. I came at bedside to assess patient tonight. Patient reports new acute generalized abdominal pain. Symptoms occurred after getting new Lasix and metoprolol concurrently within 1 to 2-hour doses. Presentation consistent with acute intestinal ischemia from low flow state. Patient responded to 500 cc bolus with systolic pressure increased from 70s to 80s. Abdominal x-ray reviewed. Her heart rate has been within normal limits under 100. Review of organ systems: She denies chest pain. She denies acute shortness of breath. No reports of fevers or chills. VITAL SIGNS: Reviewed GENERAL: Well-developed in mild distress. HEENT: No sclera icterus. Extraocular movements grossly intact. Moist buccal mucosa. Head is atraumatic, normocephalic. Hears conversational speech. No nasal drainage. CHEST: Increased labored respiration. CARDIOVASCULAR: Palpable 2+ radial pulses. ABDOMEN: Generalized anasarca. Midline incision intact without infection. Ostomy pink patent and functioning with stool and flatus without retraction. MUSCULOSKELETAL: No clubbing or cyanosis. 3+ pitting edema with 2+ pitting edema at the knees bilaterally NEUROLOGIC: No focal or lateralizing signs. Cranial nerves II through XII grossly intact. PSYCH: Appropriate affect. Alert and oriented to person, place and time. SKIN: Well perfused. STUDIES: Acute abdominal series demonstrates no acute findings. ASSESSMENT: 1. Ischemic colitis with necrosis of colostomy 2. Small and large bowel ischemia due to low flow state from atrial fibrillation 3. 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 Atrial fibrillation now rate controlled 5. Gastroesophageal reflux disease 6. Hypothyroidism 7. Hypertensive heart disease 8. Hyperlipidemia 9. Chronic anticoagulation 10. Chronic lower back pain 11. History of breast cancer 12. Acute cholecystitis 13. Abdominal ascites. 14. 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 Severe protein calorie malnutrition 16. Acute intestinal angina 17. Lactic acidosis PLAN: 1. The nurse notified me of new blood work demonstrating elevated lactic acid consistent with acute intestinal angina. I discussed with nurse to avoid any additional Lasix or antihypertensives that will lower her blood pressure. 2. Goal of normotensive to counteract acute intestinal angina 3. Nurse notified to contact nephrology to start a bicarb drip to address lactic acidosis 4. Adjustment of pain medications to nonnarcotic scheduled including gabapentin and Tylenol 5. Recommend careful management of hypotension which will further aggravate acute intestinal ischemia Objective - Vital Signs Vital signs: Vital Signs Temp 98.2 F 11/23/23 09:15 Pulse 95 11/23/23 09:15 Resp 18 11/23/23 09:27 BP 136/68 11/23/23 09:15 Pulse Ox 94 L 11/23/23 09:27 FiO2 Intake & Output 11/22/23 11/23/23 11/23/23 18:59 06:59 18:59 Intake Total 2099.583 99.583 Output Total 780 Balance 1319.583 99.583 Weight 78.6 kg 87 kg Intake: IV 900 Intake, IV Titration 1199.583 99.583 Amount Diltiazem 125 mg In 120.583 99.583 Sodium Chloride 0.9% 100 ml @ 5 MG/HR 5 mls/hr IV .Q24H SARAH Rx#:[id number] Mvi, Adult No.4 with Vit 1079 K 10 ml Trace (Conc-1Ml/ Dose) 1 ml Calcium Gluconate 1 gm Sodium Acetate 90 meq Magnesium Sulfate gm 0.5 gm Potassium Phosphate 21 mmol Potassium Chloride 10 meq In Amino Acids 5 % /Dextrose 20 % 1,000 ml @ 52 mls/hr IV .[id number] SARAH Rx#:[id number] Output: Urine 650 Stool 100 Estimated Blood Loss 30 Other: Voiding Method External Catheter Indwelling Catheter - Labs CBC & Chem 7: 11/23/23 06:36 11/23/23 06:36 Labs: Abnormal Lab Results - Last 24 Hours (Table) 11/22/23 11/22/23 11/22/23 Range/Units 15:42 17:50 23:26 WBC (3.8-10.6) k/uL RBC (3.80-5.40) m/uL Hgb (11.4-16.0) gm/dL Hct (34.0-46.0) % MCV (80.0-100.0) fL Plt Count (150-450) k/uL Neutrophils # (1.3-7.7) k/uL Sodium (137-145) mmol/L BUN (7-17) mg/dL Creatinine (0.52-1.04) mg/dL Glucose (74-99) mg/dL POC Glucose (mg/dL) 245 H 229 H 235 H (70-110) mg/dL Calcium (8.4-10.2) mg/dL Alkaline Phosphatase (38-126) U/L Total Protein (6.3-8.2) g/dL Albumin (3.5-5.0) g/dL 11/23/23 11/23/23 11/23/23 Range/Units 06:22 06:36 06:36 WBC 22.9 H (3.8-10.6) k/uL RBC 2.93 L (3.80-5.40) m/uL Hgb 9.4 L (11.4-16.0) gm/dL Hct 29.7 L (34.0-46.0) % MCV 101.3 H (80.0-100.0) fL Plt Count 477 H (150-450) k/uL Neutrophils # 18.0 H (1.3-7.7) k/uL Sodium 131 L (137-145) mmol/L BUN 23 H (7-17) mg/dL Creatinine 0.47 L (0.52-1.04) mg/dL Glucose 230 H (74-99) mg/dL POC Glucose (mg/dL) 259 H (70-110) mg/dL Calcium 8.2 L (8.4-10.2) mg/dL Alkaline Phosphatase 127 H (38-126) U/L Total Protein 4.5 L (6.3-8.2) g/dL Albumin 2.2 L (3.5-5.0) g/dL Microbiology - Last 24 Hours (Table) 11/17/23 14:37 Blood Culture - Final Blood
--- NOTE | 2023-11-23 12:02 | P.PN ---
Subjective patient is seen for follow-up for hyponatremia. No significant complaints today. patient remains on TPN. Serum sodium is 131 today. no complaints of shortness of breath. Objective - Vital Signs Vital signs: Vital Signs Temp 98.2 F 11/23/23 09:15 Pulse 95 11/23/23 11:49 Resp 18 11/23/23 11:49 BP 132/69 11/23/23 11:49 Pulse Ox 94 L 11/23/23 11:49 FiO2 Intake & Output 11/22/23 11/23/23 11/23/23 18:59 06:59 18:59 Intake Total 2099.583 99.583 Output Total 780 Balance 1319.583 99.583 Weight 78.6 kg 87 kg Intake: IV 900 Intake, IV Titration 1199.583 99.583 Amount Diltiazem 125 mg In 120.583 99.583 Sodium Chloride 0.9% 100 ml @ 5 MG/HR 5 mls/hr IV .Q24H SARAH Rx#:[id number] Mvi, Adult No.4 with Vit 1079 K 10 ml Trace (Conc-1Ml/ Dose) 1 ml Calcium Gluconate 1 gm Sodium Acetate 90 meq Magnesium Sulfate gm 0.5 gm Potassium Phosphate 21 mmol Potassium Chloride 10 meq In Amino Acids 5 % /Dextrose 20 % 1,000 ml @ 52 mls/hr IV .[id number] SARAH Rx#:[id number] Output: Urine 650 Stool 100 Estimated Blood Loss 30 Other: Voiding Method External Catheter Indwelling Catheter Indwelling Catheter - Exam Patient is awake, comfortable, no acute distress. Examination of the heart S1 and S2 Examination of the lungs bilateral breath sounds are heard Abdomen is soft nontender Examination of lower extremity shows edema 2+ bilaterally INCOME TAX CONSULTANT exam grossly intact - Labs CBC & Chem 7: 11/23/23 06:36 11/23/23 06:36 Labs: Abnormal Lab Results - Last 24 Hours (Table) 11/22/23 11/22/23 11/22/23 Range/Units 15:42 17:50 23:26 WBC (3.8-10.6) k/uL RBC (3.80-5.40) m/uL Hgb (11.4-16.0) gm/dL Hct (34.0-46.0) % MCV (80.0-100.0) fL Plt Count (150-450) k/uL Neutrophils # (1.3-7.7) k/uL Sodium (137-145) mmol/L BUN (7-17) mg/dL Creatinine (0.52-1.04) mg/dL Glucose (74-99) mg/dL POC Glucose (mg/dL) 245 H 229 H 235 H (70-110) mg/dL Calcium (8.4-10.2) mg/dL Alkaline Phosphatase (38-126) U/L Total Protein (6.3-8.2) g/dL Albumin (3.5-5.0) g/dL 11/23/23 11/23/23 11/23/23 Range/Units 06:22 06:36 06:36 WBC 22.9 H (3.8-10.6) k/uL RBC 2.93 L (3.80-5.40) m/uL Hgb 9.4 L (11.4-16.0) gm/dL Hct 29.7 L (34.0-46.0) % MCV 101.3 H (80.0-100.0) fL Plt Count 477 H (150-450) k/uL Neutrophils # 18.0 H (1.3-7.7) k/uL Sodium 131 L (137-145) mmol/L BUN 23 H (7-17) mg/dL Creatinine 0.47 L (0.52-1.04) mg/dL Glucose 230 H (74-99) mg/dL POC Glucose (mg/dL) 259 H (70-110) mg/dL Calcium 8.2 L (8.4-10.2) mg/dL Alkaline Phosphatase 127 H (38-126) U/L Total Protein 4.5 L (6.3-8.2) g/dL Albumin 2.2 L (3.5-5.0) g/dL Microbiology - Last 24 Hours (Table) 11/17/23 14:37 Blood Culture - Final Blood Assessment and Plan Assessment: 1. Hypervolemic mild hyponatremia. Sodium at 131 today. Currently on TPN. 2. Partial large bowel obstruction due to sigmoid mass s/p sigmoid colectomy with colostomy and cholecystectomy 3. Essential HTN 4. Hypokalemia, status post replacement Plan: nolan patient. Repeat labs in a.m.
[2023-11-23 12:03] LABS: Glucose,Whole Blood 255 mg/dL (70-110)
--- NOTE | 2023-11-23 12:18 | P.PN ---
Subjective Progress Note Date: 11/23/23 At todays visit pt reporting abdominal discomfort. Denies N/V, tolerating oral intake. S/p intraoperative colonoscopy via stoma for ischemic colitis, with revision of descending colostomy, drainage of peritoneal ascites, and partial colectomy. Afebrile. Continues on IV abx pain. Leukocytosis persisting, WBC 22.9, hgb stable at 9.4, plts 477,000 Objective - Vital Signs Vital signs: Vital Signs Temp 98.2 F 11/23/23 09:15 Pulse 95 11/23/23 10:41 Resp 18 11/23/23 10:41 BP 136/68 11/23/23 09:15 Pulse Ox 94 L 11/23/23 09:27 FiO2 Intake & Output 11/22/23 11/23/23 11/23/23 18:59 06:59 18:59 Intake Total 2099.583 99.583 Output Total 780 Balance 1319.583 99.583 Weight 78.6 kg 87 kg Intake: IV 900 Intake, IV Titration 1199.583 99.583 Amount Diltiazem 125 mg In 120.583 99.583 Sodium Chloride 0.9% 100 ml @ 5 MG/HR 5 mls/hr IV .Q24H SARAH Rx#:[id number] Mvi, Adult No.4 with Vit 1079 K 10 ml Trace (Conc-1Ml/ Dose) 1 ml Calcium Gluconate 1 gm Sodium Acetate 90 meq Magnesium Sulfate gm 0.5 gm Potassium Phosphate 21 mmol Potassium Chloride 10 meq In Amino Acids 5 % /Dextrose 20 % 1,000 ml @ 52 mls/hr IV .[id number] SARAH Rx#:[id number] Output: Urine 650 Stool 100 Estimated Blood Loss 30 Other: Voiding Method External Catheter Indwelling Catheter Indwelling Catheter - Constitutional General appearance: Present: no acute distress - EENT Eyes: Present: anicteric sclerae, EOMI ENT: Present: hearing grossly normal - Respiratory Details: breathing is even and unlabored - Cardiovascular Details: skin warm and dry - Integumentary Integumentary: Absent: cyanotic, jaundiced - Musculoskeletal Musculoskeletal: Present: generalized weakness - Psychiatric Psychiatric: Present: A&O x's 3 - Labs CBC & Chem 7: 11/23/23 06:36 11/23/23 06:36 Labs: Abnormal Lab Results - Last 24 Hours (Table) 11/22/23 11/22/23 11/22/23 Range/Units 15:42 17:50 23:26 WBC (3.8-10.6) k/uL RBC (3.80-5.40) m/uL Hgb (11.4-16.0) gm/dL Hct (34.0-46.0) % MCV (80.0-100.0) fL Plt Count (150-450) k/uL Neutrophils # (1.3-7.7) k/uL Sodium (137-145) mmol/L BUN (7-17) mg/dL Creatinine (0.52-1.04) mg/dL Glucose (74-99) mg/dL POC Glucose (mg/dL) 245 H 229 H 235 H (70-110) mg/dL Calcium (8.4-10.2) mg/dL Alkaline Phosphatase (38-126) U/L Total Protein (6.3-8.2) g/dL Albumin (3.5-5.0) g/dL 11/23/23 11/23/23 11/23/23 Range/Units 06:22 06:36 06:36 WBC 22.9 H (3.8-10.6) k/uL RBC 2.93 L (3.80-5.40) m/uL Hgb 9.4 L (11.4-16.0) gm/dL Hct 29.7 L (34.0-46.0) % MCV 101.3 H (80.0-100.0) fL Plt Count 477 H (150-450) k/uL Neutrophils # 18.0 H (1.3-7.7) k/uL Sodium 131 L (137-145) mmol/L BUN 23 H (7-17) mg/dL Creatinine 0.47 L (0.52-1.04) mg/dL Glucose 230 H (74-99) mg/dL POC Glucose (mg/dL) 259 H (70-110) mg/dL Calcium 8.2 L (8.4-10.2) mg/dL Alkaline Phosphatase 127 H (38-126) U/L Total Protein 4.5 L (6.3-8.2) g/dL Albumin 2.2 L (3.5-5.0) g/dL Microbiology - Last 24 Hours (Table) 11/17/23 14:37 Blood Culture - Final Blood Assessment and Plan (1) Neuroendocrine cancer Current Visit: Yes Status: Acute Priority: High Code(s): C7A.8 - OTHER MALIGNANT NEUROENDOCRINE TUMORS SNOMED Code(s): 706030741336755 (2) Liver lesion Current Visit: Yes Status: Acute Priority: High Code(s): K76.9 - LIVER DISEASE, UNSPECIFIED SNOMED Code(s): 836941848 (3) Partial bowel obstruction Current Visit: Yes Status: Acute Priority: High Code(s): K56.600 - PARTIAL INTESTINAL OBSTRUCTION, UNSPECIFIED TO CAUSE SNOMED Code(s): 98269961697947000 Plan: Neuroendcrine tumor: -CT abdomen pelvis revealed partial large bowel obstruction of sigmoid colon secondary to colitis versus mass. Indeterminate enhancing lesions within the liver with sclerotic lesion within the left proximal femur. Abnormal soft tissue within the mesentery near the cecum. MRI liver showed multiple liver lesions concerning for metastatic disease. -S/p sigmoid colectomy and cholecystectomy. Peritoneal fluid cytology negative for malignancy. Liver and colon biopsies positive for metastatic well- differentiated neuroendocrine tumor -Underwent revision of descending colostomy, with partial colectomy due to ischemic colitis on 11/21 -Pathology has been reviewed with patient including plan of care and treatment options. Treatment would be on hold for 4-6 weeks s/p surgery to allow adequate healing time. -Plan to obtain dotatate PET scan outpt, however, patient will likely need rehab, which would delay PET CT, so we will obtain CT chest while inpt -CT chest revealed no evidence for lymphadenopathy or pulmonary mass/nodule. Indeterminate sclerotic area in the anterior aspect of T7 noted. Small bilateral pleural effusions with trace ascites -Serotonin, Chromogranin, and 24 hr urine HIAA ordered. Chromogranin elevated at 1939, other labs still pending Hx breast cancer, remote -Breast tumor markers WNL
--- NOTE | 2023-11-23 12:27 | P.PN ---
Subjective HISTORY OF PRESENT ILLNESS: This is a 88-year-old female with a past medical history significant for atrial fibrillation, SVT, hypertension, hyperlipidemia, and hypothyroidism. Patient follows in the office with Dr. Holloway. We have been asked to see the patient in consultation for cardiac risk assessment. Patient examined at the bedside. Patient states she presented to the hospital after not having a bowel movement for 11 days. She has been seen by general surgery and is scheduled to undergo open sigmoid colectomy with colostomy on 11/11/[address] Cedeno. Patient currently denies any chest pain or pressure. She denies any shortness of breath. Apparently, overnight the patient went tachycardic and she was prescribed IV heparin and IV amiodarone and transferred to [facility]. She converted to sinus mechanism and is maintaining sinus mechanism at the time of examination. DIAGNOSTICS: - Telemetry currently reveals sinus mechanism - Laboratory data: WBC 17.7. Hemoglobin 11.9. Platelet count 325. Sodium 139. Potassium 3.9. BUN 16. Creatinine 0.7. TSH 18.3. Free T41.67. - Current home cardiac medications include amiodarone 200 mg daily, metoprolol tartrate 25 mg twice a day, Lipitor 20 mg daily, Eliquis 5 mg twice a day. - Most recent echocardiogram obtained in July 2022 revealed ejection fraction 52%, mild aortic stenosis, mild mitral regurgitation, mild tricuspid regurgitation 11/09/2023 Patient examined this morning at the bedside. Patient currently denies chest pain or pressure. She denies shortness of breath. She remains in atrial fibrillation with decently controlled ventricular rates. Echocardiogram c ompleted revealing ejection fraction 35 to 40%, mild MR, mild 11/10/2023 Patient examined this morning the bedside. Patient seen up in the chair. Patient denies chest pain or pressure. She denies shortness of breath. Vital signs are stable. She remains in atrial fibrillation with heart rate between [id number]. 11/11/2023 Patient examined this morning at the bedside. Patient currently denies chest pain or pressure. She denies shortness of breath. She remains in atrial fibrillation with controlled ventricular rate. She remains on IV heparin. She is scheduled to undergo surgical intervention today. 11/13/2023 Patient is status post exploratory laparotomy, sigmoid resection, descending colostomy, cholecystectomy, and liver biopsy. Patient examined this morning the bedside. Patient currently denies chest pain or pressure. She denies shortness of breath. She remains in atrial fibrillation with controlled ventricular rate. Her IV Cardizem has been discontinued. 11/14/2023 Patient examined this morning at the bedside. Patient currently denies chest pain or pressure. She denies shortness of breath. She has been resumed back on Eliquis. She remains in atrial fibrillation with controlled ventricular rate. 11/14 Patient has been resumed on Eliquis and continued on Lopressor 25 mg twice daily. Heart rate 107, blood pressure 129/77, pulse ox 97% on room air. Telemetry is atrial fibrillation rate controlled. Repeat blood work reveals WBC 20.1, hemoglobin 10.2. BUN 15 creatinine 0.4. Patient received 1 dose of IV Lasix this morning. Patient was started back on Eliquis on 11/12. Note general surgery has recommended holding until epidural is removed. Epidural has been removed but there is concern the patient may need to have additional surgical intervention done. Patient is on TPN and oral diet. 11/15 Patient is seen today sitting up in a chair. She denies chest pain known palpitations. She remains in atrial fibrillation. Yesterday we resumed her back on Eliquis as there was concern that patient may need surgical intervention. Blood pressure 123/67, heart rate 96, pulse ox 97% on room air. No medication changes made today. 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 Patient has met with oncology this morning. Patient's heart rate remains elevated in the 120s and remains in atrial fibrillation. Patient has been kept on heparin drip in case she requires surgical revision of stoma. Blood pressure 120/79, pulse ox 96% on room air. WBC 26.9, hemoglobin 9.3, BUN 14 creatinine 0.39. Yesterday, metoprolol tartrate was increased to 50 mg twice daily. 11/17 Patient remains in atrial fibrillation with heart rates below 120s. She is on heparin drip and maintained on Lopressor 100 mg twice daily which was increased yesterday. Blood pressure 109/71, pulse ox 95% on room air. Repeat blood work reveals WBC 31.9, hemoglobin 10.5. Creatinine 0.38. 11/20/2023 Patient examined this morning at the bedside. Patient currently denies chest pain or pressure. She denies shortness of breath. Telemetry reveals atrial fibrillation with a heart rate in the 80s. She remains on IV heparin. Plan is for exploratory laparotomy with total colectomy end ileostomy placement on Wednesday with Dr. Cedeno 11/21/2023 Patient examined this morning at bedside. Patient currently denies chest pain or pressure. She denies shortness of breath. Telemetry reveals atrial fibrillation with a heart rate in the 120s. Patient's heart rate was well- controlled yesterday. She is tolerating oral medications. She remains on IV heparin. 11/23/2023 Patient examined this morning at bedside. Patient currently denies chest pain or pressure. She denies shortness of breath. Patient has been resumed on Eliquis. She remains in atrial fibrillation with controlled ventricular rate. IV Cardizem is infusing at 5 mg an hour. PHYSICAL EXAM: VITAL SIGNS: Reviewed. GENERAL: Well-developed in no acute distress. HEENT: Head is normocephalic. Pupils are equal, round. Sclerae anicteric. Mucous membranes of the mouth are moist. Neck supple. No JVD or thyromegaly LUNGS: Respirations even and unlabored. Lungs essentially clear to auscultation bilaterally. HEART: Irregular rate and rhythm. S1 and S2 heard. ABDOMEN: Soft. Nondistended. Mild tenderness. EXTREMITIES: Normal range of motion. No clubbing or cyanosis. Peripheral pulses intact. No lower extremity edema NEUROLOGIC: Awake and alert. Oriented x 3. ASSESSMENT: Bowel obstruction, status post exploratory laparotomy, sigmoid resection, descending colostomy, cholecystectomy, and liver biopsy, 11/12/2023 S/p revision of descending colostomy, partial colectomy, and drainage of peritoneal ascites, 11/22/2023 Multiple hepatic lesions Liver and colon biopsies positive for metastatic well-differentiated neuroendocrine tumor Ischemic enteritis with colitis Cholecystitis s/p cholecystectomy, 11/12/2023 Paroxysmal atrial fibrillation History of cardioversion, 2022 Hypertension Hyperlipidemia History of paroxysmal SVT Hypothyroidism New onset cardiomyopathy, 35 to 40%, ischemic versus nonischemic PLAN: Continue current cardiac medications Continue telemetry monitoring Continue oral anticoagulation with Eliquis Discontinue IV Cardizem Further recommendations pending patient course Nurse practitioner note has been reviewed by physician. Signing provider agrees with the documented findings, assessment, and plan of care documented by [employer] as a scribe. Objective - Vital Signs Vital signs: Vital Signs Temp 98.2 F 11/23/23 09:15 Pulse 95 11/23/23 11:49 Resp 18 11/23/23 11:49 BP 132/69 11/23/23 11:49 Pulse Ox 94 L 11/23/23 11:49 FiO2 Intake & Output 11/22/23 11/23/23 11/23/23 18:59 06:59 18:59 Intake Total 2099.583 99.583 Output Total 780 Balance 1319.583 99.583 Weight 78.6 kg 87 kg Intake: IV 900 Intake, IV Titration 1199.583 99.583 Amount Diltiazem 125 mg In 120.583 99.583 Sodium Chloride 0.9% 100 ml @ 5 MG/HR 5 mls/hr IV .Q24H [facility] Rx#:[id number] Mvi, Adult No.4 with Vit 1079 K 10 ml Trace (Conc-1Ml/ Dose) 1 ml Calcium Gluconate 1 gm Sodium Acetate 90 meq Magnesium Sulfate gm 0.5 gm Potassium Phosphate 21 mmol Potassium Chloride 10 meq In Amino Acids 5 % /Dextrose 20 % 1,000 ml @ 52 mls/hr IV .[id number] [facility] Rx#:[id number] Output: Urine 650 Stool 100 Estimated Blood Loss 30 Other: Voiding Method External Catheter Indwelling Catheter Indwelling Catheter - Labs CBC & Chem 7: 11/23/23 06:36 11/23/23 06:36 Labs: Abnormal Lab Results - Last 24 Hours (Table) 11/22/23 11/22/23 11/22/23 Range/Units 15:42 17:50 23:26 WBC (3.8-10.6) k/uL RBC (3.80-5.40) m/uL Hgb (11.4-16.0) gm/dL Hct (34.0-46.0) % MCV (80.0-100.0) fL Plt Count (150-450) k/uL Neutrophils # (1.3-7.7) k/uL Sodium (137-145) mmol/L BUN (7-17) mg/dL Creatinine (0.52-1.04) mg/dL Glucose (74-99) mg/dL POC Glucose (mg/dL) 245 H 229 H 235 H (70-110) mg/dL Calcium (8.4-10.2) mg/dL Alkaline Phosphatase (38-126) U/L Total Protein (6.3-8.2) g/dL Albumin (3.5-5.0) g/dL 11/23/23 11/23/23 11/23/23 Range/Units 06:22 06:36 06:36 WBC 22.9 H (3.8-10.6) k/uL RBC 2.93 L (3.80-5.40) m/uL Hgb 9.4 L (11.4-16.0) gm/dL Hct 29.7 L (34.0-46.0) % MCV 101.3 H (80.0-100.0) fL Plt Count 477 H (150-450) k/uL Neutrophils # 18.0 H (1.3-7.7) k/uL Sodium 131 L (137-145) mmol/L BUN 23 H (7-17) mg/dL Creatinine 0.47 L (0.52-1.04) mg/dL Glucose 230 H (74-99) mg/dL POC Glucose (mg/dL) 259 H (70-110) mg/dL Calcium 8.2 L (8.4-10.2) mg/dL Alkaline Phosphatase 127 H (38-126) U/L Total Protein 4.5 L (6.3-8.2) g/dL Albumin 2.2 L (3.5-5.0) g/dL 11/23/23 Range/Units 12:01 WBC (3.8-10.6) k/uL RBC (3.80-5.40) m/uL Hgb (11.4-16.0) gm/dL Hct (34.0-46.0) % MCV (80.0-100.0) fL Plt Count (150-450) k/uL Neutrophils # (1.3-7.7) k/uL Sodium (137-145) mmol/L BUN (7-17) mg/dL Creatinine (0.52-1.04) mg/dL Glucose (74-99) mg/dL POC Glucose (mg/dL) 255 H (70-110) mg/dL Calcium (8.4-10.2) mg/dL Alkaline Phosphatase (38-126) U/L Total Protein (6.3-8.2) g/dL Albumin (3.5-5.0) g/dL Microbiology - Last 24 Hours (Table) 11/17/23 14:37 Blood Culture - Final Blood
[2023-11-23] MEDS: FUROSEMIDE 10 MG/ML 2 ML VIAL IV SCH (12:32)
--- NOTE | 2023-11-23 12:45 | P.PN ---
Subjective Progress Note Date: 11/23/23 Subjective: Patient seen and examined at bedside. No acute events overnight. Occasional abdominal pain, relieved with pain medications. Having output from her ostomy. Has not been getting out of bed into the chair. Has Parra catheter. Pertinent positives and negatives as discussed above, a complete review of systems was performed and all other systems are negative. Vitals: Signs Reviewed Physical Exam: General: nontoxic, no distress, appears at stated age Derm: warm, dry, intact Head: atraumatic, normocephalic, symmetric Eyes: EOMI, no lid lag, anicteric sclera Mouth: no lip lesion, mucus membranes moist Cardiovascular: S1 S2 reg, no murmur, rubs, or gallops Lungs: CTA bilateral, no rhonchi, no rales, no accessory muscle use Abdominal: distended, tender to palpataion, no appreciable organomegaly, ostomy in place, stoma dusky, necrotic Extremities: no gross muscle atrophy, no edema, no contractures Neuro: Alert, Oriented, CNII-XII grossly intact Psych: well appearing, appropriate affect Data Received Today: Pertinent Labs: WBC 22.9, Hgb 9.4, PLT 477, sodium 131, potassium 4.7, creatinine 0.47, glucose range 170817, alk phos 123, protein 4.5, albumin 2.2 Imaging: No new imaging Assessment and Plan: 88-year-old female with past medical history of IBS, hypothyroid, hypertension, breast cancer, and A-fib presents with abdominal pain associated with constipation. Initially admitted for partial large bowel obstruction secondary to sigmoid mass. Further workup showed metastatic well-differentiated neuroendocrine tumor. S/p sigmoid colectomy with costomy and cholecystectomy. However does have ischemic bowel, will need subtotal colectomy. POD1. Partial large bowel obstruction due to sigmoid mass s/p sigmoid colectomy with costomy and cholecystectomy Metastatic well-differentiated neuroendocrine tumor Leukocytosis Possible peritonitis POD1 ex lap with likely total versus subtotal colectomy with ileostomy d/t ischemic enteritis with colitis -Morphine 2 mg ivp q4h prn for severe pain, monitor for sedation -Oncology following, Will obtain PET scan outpatient, Serotonin, and 24-hour urine HIAA pending, Chromogranin A 1939 -ID following, patient continued on Unasyn 3 g IV every 6 hours, Eraxis 100 mg IV daily, Flagyl 500 p.o. 3 times daily -surgery note reviewed. resume TPN. Encourage patient to increast activity level and use incentive spirometer. On high-protein/high-calorie diet Atrial fibrillation w/ rvr, now rate controlled Monitoring on telemetry. Cardiology note reviewed, continue Metoprolol 100 mg PO BID and 50 mg daily at bedtime for rate control. continue amiodarone 200 mg daily. heparin drip d/c. back on Eliqis. monitor APTT, daily CBC, monitor for bleeding Keep K > 4, magnesium > 2 Will monitor potassium and magnesium. Follow-up BMP Discontinue Cardizem drip Hypoalbuminemia Anasarca Heart failure with reduced ejection fraction 35 to 40%, not in exacerbation Hyponatremia, likely hypervolemic, now likely euvolemia -Nephrology following, likely hyponatremia secondary to sodium acetate content in TPN, sodium now improving -20mg IV las nephrology note reviewed. ix resumed. repeat BMP in a.m. Hyperglycemia Levemir decreased to 5 units daily as patient will be going to surgery today, will likely need increase once TPN is resumed On insulin subcu sliding scale Will continue to monitor for hypoglycemia A1c 6.0, prediabetic, possibly reactive Small bilateral pleural effusion Possible right lung metastatic disease - chest ultrasound: left small to moderate pleural effusion - pulmonology following, no thoracentesis necessary -Patient on room air Resolved: Hypoglycemia Hypokalemia, Metabolic acidosis with high anion gap Macrocytosis Hypomagnesemia Chronic: Hypothyroidism - Continue levothyroxine - Likely has euthyroid sick syndrome -TSH elevated, free T4 within normal limits, consider repeating in 4 to 6 weeks Urinary incontinence -External catheter in place Hypertension, currently controlled - Hold home HCTZ and losartan Dyslipidemia Atorvastatin 20 mg PO F: TPN E: Replete as needed N: High-protein/high-calorie diet A: fall precautions, hypoglycemia protocol, PT recommending inpatient rehab versus subacute rehab DVT ppx: Heparin drip Code status: No code w/instructions Anticipated discharge place: pending clinical course Anticipated discharge time: pending clinical course I have seen and evaluated the patient today. Discussed with the resident and agree with the residents subjective and objective as documented in the resident's note. The assessment and plan was discussed and outlined as below. Patient reports well controlled pain. Tolerating diet well. Ischemic colitis with necrotic colostomy: Status post revision of colostomy and partial colectomy POD 1. Partial SBO due to neuro-endocrine tumor: POD 11. [place] 5 1 tab PO BID PRN. IV antibiotics as below. Pathology report neuro-endocrine tumor of the color with metastatic lesions to the liver. TPN for nutrition started 11/08. NDD3 diet started 11/21. Surgery on board. Sepsis likely due to peritonitis and cholecystitis : Peritoneal Cx Enterococcus faecium, Bacteroides thetaiotaomicron. Unasyn 3g IV TID started 11/19. Flagyl 500 mg PO TID. Anidulafungin 100 mg IV QD. LR at 20 cc/hr. BCx negative so far. Atrial fibrillation with RVR: Maintain Mg > 2 and K > 4. Eliquis 5 mg PO BID. Cardizem drip discontinued today by Cardiology. Amiodarone 200 mg PO QD. Metoprolol 100 mg PO BID + 50 mg PO HS. Cardiology following. Metastatic neuro-endocrine tumor: CA 15-3, 19-9, CEA wnl. AFP elvated 12.4. Pathology results as above. Oncology following. HFrEF: EF 35-40%. Lasix 20 mg IV BID. Metoprolol as above. ACEi on hold due to hypotension. Macrocytosis: B12 and Folate wnl. Subclinical hypothyroidism: Likely due to acute illness. Continue Synthroid 100 mcg PO QD. Repeat TSH/FT4 in 6 weeks. Urinary incontinence: Myrbetriq when able to PO. Hypertension: Losartan/HCTZ on hold. Metoprolol as above. Dyslipidemia: Lipitor 20 mg PO QD. Objective - Vital Signs Vital signs: Vital Signs Temp 98.2 F 11/23/23 09:15 Pulse 95 11/23/23 11:49 Resp 18 11/23/23 11:49 BP 132/69 11/23/23 11:49 Pulse Ox 94 L 11/23/23 11:49 FiO2 Intake & Output 11/22/23 11/23/23 11/23/23 18:59 06:59 18:59 Intake Total 2099.583 99.583 Output Total 780 Balance 1319.583 99.583 Weight 78.6 kg 87 kg Intake: IV 900 Intake, IV Titration 1199.583 99.583 Amount Diltiazem 125 mg In 120.583 99.583 Sodium Chloride 0.9% 100 ml @ 5 MG/HR 5 mls/hr IV .Q24H [facility] Rx#:[id number] Mvi, Adult No.4 with Vit 1079 K 10 ml Trace (Conc-1Ml/ Dose) 1 ml Calcium Gluconate 1 gm Sodium Acetate 90 meq Magnesium Sulfate gm 0.5 gm Potassium Phosphate 21 mmol Potassium Chloride 10 meq In Amino Acids 5 % /Dextrose 20 % 1,000 ml @ 52 mls/hr IV .[id number] [facility] Rx#:[id number] Output: Urine 650 Stool 100 Estimated Blood Loss 30 Other: Voiding Method External Catheter Indwelling Catheter Indwelling Catheter - Labs CBC & Chem 7: 11/23/23 06:36 11/23/23 06:36 Labs: Abnormal Lab Results - Last 24 Hours (Table) 11/22/23 11/22/23 11/22/23 Range/Units 15:42 17:50 23:26 WBC (3.8-10.6) k/uL RBC (3.80-5.40) m/uL Hgb (11.4-16.0) gm/dL Hct (34.0-46.0) % MCV (80.0-100.0) fL Plt Count (150-450) k/uL Neutrophils # (1.3-7.7) k/uL Sodium (137-145) mmol/L BUN (7-17) mg/dL Creatinine (0.52-1.04) mg/dL Glucose (74-99) mg/dL POC Glucose (mg/dL) 245 H 229 H 235 H (70-110) mg/dL Calcium (8.4-10.2) mg/dL Alkaline Phosphatase (38-126) U/L Total Protein (6.3-8.2) g/dL Albumin (3.5-5.0) g/dL 11/23/23 11/23/23 11/23/23 Range/Units 06:22 06:36 06:36 WBC 22.9 H (3.8-10.6) k/uL RBC 2.93 L (3.80-5.40) m/uL Hgb 9.4 L (11.4-16.0) gm/dL Hct 29.7 L (34.0-46.0) % MCV 101.3 H (80.0-100.0) fL Plt Count 477 H (150-450) k/uL Neutrophils # 18.0 H (1.3-7.7) k/uL Sodium 131 L (137-145) mmol/L BUN 23 H (7-17) mg/dL Creatinine 0.47 L (0.52-1.04) mg/dL Glucose 230 H (74-99) mg/dL POC Glucose (mg/dL) 259 H (70-110) mg/dL Calcium 8.2 L (8.4-10.2) mg/dL Alkaline Phosphatase 127 H (38-126) U/L Total Protein 4.5 L (6.3-8.2) g/dL Albumin 2.2 L (3.5-5.0) g/dL 11/23/23 Range/Units 12:01 WBC (3.8-10.6) k/uL RBC (3.80-5.40) m/uL Hgb (11.4-16.0) gm/dL Hct (34.0-46.0) % MCV (80.0-100.0) fL Plt Count (150-450) k/uL Neutrophils # (1.3-7.7) k/uL Sodium (137-145) mmol/L BUN (7-17) mg/dL Creatinine (0.52-1.04) mg/dL Glucose (74-99) mg/dL POC Glucose (mg/dL) 255 H (70-110) mg/dL Calcium (8.4-10.2) mg/dL Alkaline Phosphatase (38-126) U/L Total Protein (6.3-8.2) g/dL Albumin (3.5-5.0) g/dL Microbiology - Last 24 Hours (Table) 11/17/23 14:37 Blood Culture - Final Blood
--- NOTE | 2023-11-23 13:48 | P.PN ---
Subjective Progress Note Date: 11/23/23 Principal diagnosis: Reason for follow-up is leukocytosis Patient is a 88-year-old female with a past medical history significant for hypertension hyperlipidemia atrial fibrillation history of breast cancer chronic back pain presenting to the hospital for evaluation ab dominal pain and constipation has been diagnosed with a large bowel obstruction and concern for possible liver mets did have persistent worsening white count prompting this consultation.Patient is status post expiratory laparotomy with sigmoid resection for large bowel obstruction and descending colostomy open cholecystectomy, peritoneal large liver biopsy procedure completed on 11/12/2023, Patient is status post revision of descending colostomy for ischemic colitis and drainage of peritoneal ascites procedure completed on 11/22/2023. On today's evaluation that is 11/23/2023, the patient continues to be afebrile, the patient is on room air and breathing comfortably, the Pt denies having any c hest pain or cough, the patient abdominal pain is controlled with the pain medication denies any nausea no vomiting tolerating her diet. Patient white count is 22.9, creatinine 0.47 blood culture has been negative Objective - Vital Signs Vital signs: Vital Signs Temp 98.2 F 11/23/23 09:15 Pulse 95 11/23/23 10:41 Resp 18 11/23/23 10:41 BP 136/68 11/23/23 09:15 Pulse Ox 94 L 11/23/23 09:27 FiO2 Intake & Output 11/22/23 11/23/23 11/23/23 18:59 06:59 18:59 Intake Total 2099.583 99.583 Output Total 780 Balance 1319.583 99.583 Weight 78.6 kg 87 kg Intake: IV 900 Intake, IV Titration 1199.583 99.583 Amount Diltiazem 125 mg In 120.583 99.583 Sodium Chloride 0.9% 100 ml @ 5 MG/HR 5 mls/hr IV .Q24H [facility] Rx#:[id number] Mvi, Adult No.4 with Vit 1079 K 10 ml Trace (Conc-1Ml/ Dose) 1 ml Calcium Gluconate 1 gm Sodium Acetate 90 meq Magnesium Sulfate gm 0.5 gm Potassium Phosphate 21 mmol Potassium Chloride 10 meq In Amino Acids 5 % /Dextrose 20 % 1,000 ml @ 52 mls/hr IV .[id number] [facility] Rx#:[id number] Output: Urine 650 Stool 100 Estimated Blood Loss 30 Other: Voiding Method External Catheter Indwelling Catheter Indwelling Catheter - Exam GENERAL DESCRIPTION: An elderly female lying in bed in no distress RESPIRATORY SYSTEM: Unlabored breathing , decreased breath sounds at bases HEART: S1 S2 regular rate and rhythm , ABDOMEN: Soft , mild distention EXTREMITIES: No edema feet - Labs CBC & Chem 7: 11/23/23 06:36 11/23/23 06:36 Labs: Abnormal Lab Results - Last 24 Hours (Table) 11/22/23 11/22/23 11/22/23 Range/Units 15:42 17:50 23:26 WBC (3.8-10.6) k/uL RBC (3.80-5.40) m/uL Hgb (11.4-16.0) gm/dL Hct (34.0-46.0) % MCV (80.0-100.0) fL Plt Count (150-450) k/uL Neutrophils # (1.3-7.7) k/uL Sodium (137-145) mmol/L BUN (7-17) mg/dL Creatinine (0.52-1.04) mg/dL Glucose (74-99) mg/dL POC Glucose (mg/dL) 245 H 229 H 235 H (70-110) mg/dL Calcium (8.4-10.2) mg/dL Alkaline Phosphatase (38-126) U/L Total Protein (6.3-8.2) g/dL Albumin (3.5-5.0) g/dL 11/23/23 11/23/23 11/23/23 Range/Units 06:22 06:36 06:36 WBC 22.9 H (3.8-10.6) k/uL RBC 2.93 L (3.80-5.40) m/uL Hgb 9.4 L (11.4-16.0) gm/dL Hct 29.7 L (34.0-46.0) % MCV 101.3 H (80.0-100.0) fL Plt Count 477 H (150-450) k/uL Neutrophils # 18.0 H (1.3-7.7) k/uL Sodium 131 L (137-145) mmol/L BUN 23 H (7-17) mg/dL Creatinine 0.47 L (0.52-1.04) mg/dL Glucose 230 H (74-99) mg/dL POC Glucose (mg/dL) 259 H (70-110) mg/dL Calcium 8.2 L (8.4-10.2) mg/dL Alkaline Phosphatase 127 H (38-126) U/L Total Protein 4.5 L (6.3-8.2) g/dL Albumin 2.2 L (3.5-5.0) g/dL Microbiology - Last 24 Hours (Table) 11/17/23 14:37 Blood Culture - Final Blood Assessment and Plan (1) Leukocytosis Current Visit: Yes Status: Acute Code(s): D72.829 - ELEVATED WHITE BLOOD CELL COUNT, UNSPECIFIED SNOMED Code(s): 536117863 (2) Partial bowel obstruction Current Visit: Yes Status: Acute Priority: High Code(s): K56.600 - PARTIAL INTESTINAL OBSTRUCTION, UNSPECIFIED TO CAUSE SNOMED Code(s): 32472331364289157 Plan: 1patient with leukocytosis which is likely multifactorial in this patient admitted to hospital with abdominal pain and constipation has been diagnosed with a large bowel obstruction with a question of possible mass versus colitis mass may be favored as the patient did have multiple lesion in the liver concerning for metastatic disease with worsening of the white count despite being on Rocephin and Flagyl we need to broaden her antibiotic coverage 2-blood cultures has been repeated currently pending 3-patient is status post extensive abdominal surgery, abdominal cultures now growing Enterococcus faecalis penicillin sensitive and Bacteroides species 4patient did have repeat CT abdominal pelvis that has been suggestive of progression of her liver metastasis may be contributing to some of this elevated and also noticed to have ischemic colitis s/p revision of the descending colostomy procedure completed on 11/21/2021 5the patient white count is slightly up today could be related to surgery from yesterday and will be monitored closely, will continue with Unasyn Flagyl and Eraxis and continue supportive care Dictation was produced using [employer] dictation software. please excuse any grammatical, word or spelling errors. Time with Patient: Less than 30
[2023-11-23] MEDS: MVI, ADULT NO.4 WITH VIT K 10 ML, TRACE (CONC-1ML/DOSE) 1 ML, CALCIUM GLUCONATE 1 GM, S... IV SCH (16:25)
[2023-11-23 18:05] LABS: Glucose,Whole Blood 293 mg/dL (70-110)
[2023-11-23] MEDS: SODIUM CHLORIDE 0.9% 1,000 ML BAG IV STA (20:20)
--- NOTE | 2023-11-23 21:57 | XR ---
EXAMINATION TYPE: XR abdomen 1V DATE OF EXAM: 11/23/2023 9:51 PM CLINICAL INDICATION:Female, 88 years old with history of pain, hypotension; [facility] COMPARISON: Abdominal radiograph 11/05/2023 TECHNIQUE: Frontal radiographic view of the abdomen was obtained. FINDINGS: Exam is limited due to poor penetration on exam secondary to patient's body habitus and significant p ositional rotation. The visualized portions of the thorax appear within normal limits. Nonspecific nonobstructive bowel g as pattern seen. Scoliotic curvature of the spine. Significant rotation of the bony pelvis with no ob vious acute fractures. IMPRESSION: No acute process on this limited evaluation.
--- NOTE | 2023-11-23 22:18 | P.PN ---
Progress Note - Text Progress Note Date: 11/23/23 I was notified by on-call surgeon regarding nurses concern for new hypotension and patient's new increased abdominal pain at 2121 this tonight. I notified the nurse to get an abdominal x-ray. Patient is postop day 1 from revision of ostomy. I came at bedside to assess patient tonight. Patient reports new acute generalized abdominal pain. Symptoms occurred after getting new Lasix and metoprolol concurrently within 1 to 2-hour doses. Presentation consistent with acute intestinal ischemia from low flow state. Patient responded to 500 cc bolus with systolic pressure increased from 70s to 80s. Abdominal x-ray reviewed. Her heart rate has been within normal limits under 100. Review of organ systems: She denies chest pain. She denies acute shortness of breath. No reports of fevers or chills. VITAL SIGNS: Reviewed GENERAL: Well-developed in mild distress. HEENT: No sclera icterus. Extraocular movements grossly intact. Moist buccal mucosa. Head is atraumatic, normocephalic. Hears conversational speech. No nasal drainage. CHEST: Increased labored respiration. CARDIOVASCULAR: Palpable 2+ radial pulses. ABDOMEN: Generalized anasarca. Midline incision intact without infection. Ostomy pink patent and functioning with stool and flatus without retraction. MUSCULOSKELETAL: No clubbing or cyanosis. 3+ pitting edema with 2+ pitting edema at the knees bilaterally NEUROLOGIC: No focal or lateralizing signs. Cranial nerves II through XII grossly intact. PSYCH: Appropriate affect. Alert and oriented to person, place and time. SKIN: Well perfused. STUDIES: Acute abdominal series demonstrates no acute findings. ASSESSMENT: 1. Ischemic colitis with necrosis of colostomy 2. Small and large bowel ischemia due to low flow state from atrial fibrillation 3. 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 Atrial fibrillation now rate controlled 5. Gastroesophageal reflux disease 6. Hypothyroidism 7. Hypertensive heart disease 8. Hyperlipidemia 9. Chronic anticoagulation 10. Chronic lower back pain 11. History of breast cancer 12. Acute cholecystitis 13. Abdominal ascites. 14. 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 Severe protein calorie malnutrition 16. Acute intestinal angina 17. Lactic acidosis PLAN: 1. The nurse notified me of new blood work demonstrating elevated lactic acid consistent with acute intestinal angina. I discussed with nurse to avoid any additional Lasix or antihypertensives that will lower her blood pressure. 2. Goal of normotensive to counteract acute intestinal angina 3. Nurse notified to contact nephrology to start a bicarb drip to address lactic acidosis 4. Adjustment of pain medications to nonnarcotic scheduled including gabapentin and Tylenol 5. Recommend careful management of hypotension which will further aggravate acute intestinal Itzel kade ischemia
[2023-11-23] MEDS: SODIUM CHLORIDE 0.9% 1,000 ML IV ONE (22:26)
[2023-11-23] MEDS: ACETAMINOPHEN TAB 325 MG TAB PO SCH (23:33)
[2023-11-24] MEDS ORDERED: SODIUM CHLORIDE 0.9% 1,000 ML IV SCH
[2023-11-24 00:26] LABS: HCT 21.4 % (34.0-46.0); Hypochromasia Marked; Macrocytosis Moderate; Mean Platelet Volume 8.6; Platelet Count 490 k/uL (150-450); RDW 14.6 % (11.5-15.5); WBC 30.7 k/uL (3.8-10.6)
[2023-11-24 00:36] LABS: HGB 6.4 gm/dL (11.4-16.0); MCV 106.8 fL (80.0-100.0)
[2023-11-24 00:37] LABS: Glucose,Whole Blood 348 mg/dL (70-110)
[2023-11-24] MEDS ORDERED: IOPAMIDOL CONTRAST (ORAL USE) VIAL PO PRN (00:53)
[2023-11-24 01:34] LABS: Anisocytosis (M) Present; Band Neutrophils % 3 %; Eosinophils # (M) 0.31 k/uL (0-0.7); Lymphocytes # (M) 6.75 k/uL (1.0-4.8); Monocytes # (M) 1.23 k/uL (0-1.0); Neutrophils % (M) 71 %; Nucleated Red Blood Cells 0 /100 WBC (0-0); Total Cells Counted 200
[2023-11-24 01:46] LABS: Glucose,Whole Blood 367 mg/dL (70-110)
[2023-11-24] MEDS ORDERED: NALOXONE 0.4 MG/ML 1 ML VIAL IV PRN (02:23)
[2023-11-24] MEDS: NOREPINEPHRINE 4 MG in SODIUM CHLORIDE 0.9% 250 ML IV SCH (02:31)
[2023-11-24] MEDS ORDERED: DEXTROSE 50% SYRINGE 50 ML IVP PRN ×2 (03:01)
[2023-11-24] MEDS: SODIUM CHLORIDE 0.9% 1,000 ML BAG IV STA (03:29)
--- NOTE | 2023-11-24 03:52 | CT ---
EXAM: CT Abdomen and Pelvis With Intravenous Contrast CLINICAL HISTORY: ITS.REASON CT Reason: hypotention abd pain TECHNIQUE: Axial computed tomography images of the abdomen and pelvis with intravenous contrast. CTDI is 43.1 mGy and DLP is 2022.2 mGy-cm. This CT exam was performed using one or more of the following dose reduction techniques: automated exposure control, adjustment of the mA and/or kV according to patient size, and/or use of iterative reconstruction technique. COMPARISON: CT abdomen/pelvis: 11/18/2023 FINDINGS: Lung bases: Interval mild increase in bilateral pleural effusions with overlying consolidation/atelectasis and surrounding infiltrates RT>LT. bilateral bronchial wall thickening/central bronchiectasis. Pulmonary emphysema. Cardiomegaly. Multivessel densely calcified coronary arterial atherosclerosis. ABDOMEN: Liver: Diffuse hepatic steatosis. Multiple variable size hypodense mass lesions are seen throughout the liver, consistent with metastatic disease.. Gallbladder and bile ducts: Gallbladder is not seen, either contracted or surgically removed. No ductal dilation. Pancreas: Fat infiltration. No mass. No ductal dilation. Spleen: Unremarkable. No splenomegaly. Adrenals: Unremarkable right adrenal gland. Again noted a 1.7 x 1.2 cm left adrenal nodule, concerning for metastatic disease. Kidneys and ureters: No solid mass. No hydronephrosis. Stomach and bowel: Fluid-filled moderately distended stomach. Prior sigmoidectomy with diverting colostomy. Again noted diffuse mucosal wall thickening of normally distended small bowel loops and nondistended large bowel loops, Including of the colostomy segment, concerning for an ischemic versus infectious colitis. PELVIS: Appendix: Not visualized. Bladder: A normally distended bladder with a small intraluminal air pocket. Reproductive: Unremarkable as visualized. ABDOMEN and PELVIS: Intraperitoneal space: Moderately large amount of free fluid in the abdomen and pelvis, is increased since prior comparison.. No free air. Bones/joints: No acute fracture. Scattered sclerotic osseous lesions/osseous metastasis (series 202 image 82).. Advanced multilevel lumbar spondylosis. Rotatory levoscoliosis. Soft tissues: There is also interval increase in body wall edema/anasarca. Vasculature: Atherosclerotic calcifications of the aorta and branch vessels. Again noted focal atheromatous calcification at the origin of the celiac axis with a high-grade luminal narrowing/stenosis (series 201 image 29, series 203 image 75). No abdominal aortic aneurysm. Lymph nodes: No lymphadenopathy by CT size criteria. IMPRESSION: Diffuse hepatic metastasis. Left adrenal 1.7 cm nodule/metastatic lesion. Diffuse osseous metastasis. Prior sigmoidectomy with diverting colostomy. Again noted diffuse mucosal wall thickening of normally distended small bowel and nondistended large bowel loops, including of the colostomy segment, concerning for an ischemic versus infectious colitis. Focal atheromatous calcification at the origin of the celiac axis with high-grade stenosis. Bilateral moderate pleural effusions with overlying consolidation/atelectasis and surrounding infiltrates RT>LT, increased since prior comparison. Moderately large volume abdominal/pelvic free fluid/ascites, increased since prior. Diffuse body wall edema/anasarca also increased since prior comparison. .
[2023-11-24 03:55] LABS: Glucose,Whole Blood 257 mg/dL (70-110)
[2023-11-24] MEDS: SODIUM CHLORIDE 0.9% 1,000 ML IV SCH (03:59)
--- NOTE | 2023-11-24 04:34 | P.PN ---
Subjective Progress Note Date: 11/24/23 Principal diagnosis: Bowel obstruction/sigmoid colon mass/bowel ischemia status post exploratory laparotomy with sigmoid resection, descending colostomy, open cholecystectomy, liver biopsy on 11/12/2023 Ischemic colitis with necrosis of colostomy status post intraoperative colono scopy via stoma for ischemic colitis, revision of descending colostomy, drainage of peritoneal ascites on 11/22/2023 Rapid response on 11/24/2023 for hypotension Patient has had a prolonged and complicated hospital stay, we originally saw this patient back on 11/19/2023 for small bilateral pleural effusions. She was largely asymptomatic from a pulmonary standpoint. This was managed conservativel y, and we were seeing the patient on as-needed basis. Now seeing this patient in follow-up after rapid response was called early this morning for hypotension. Patient originally presented to the emergency department back on 11/05/2023 chiefly for symptoms of constipation and abdominal pain. Original CT of the abdomen and pelvis demonstrated a partial large bowel obstruction of the sigmoid colon secondary to colitis versus mass with upstream dilation of the large and small bowel containing fluid and gas. There are also mild indeterminate enhancing lesions within the liver as well as sclerotic lesion within the left proximal femur concerning for malignancy. Patient did go for an exploratory laparotomy on 11/12/2023 findings included a mid to distal sigmoid obstructing colon mass, moderately distended transverse colon without perforation decompressed via depressive colotomy, bowel ischemia involving the entire small and large bowel. She did undergo sigmoid resection, descending colostomy, open cholecystectomy, and liver biopsy. Cytology of the mass and liver biopsy demonstrating a metastatic well-differentiated neuroendocrine tumor. Subsequently, the patient did go back to the OR on 11/22/2023 and was found to have a necrotic colostomy with ischemic colitis status post revision of descending colostomy, and drainage of peritoneal ascites. Patient was recovering on the selective care unit. Any team was called early this morning around 02 100 for hypotension. She also is having increased abdominal pain. Dr. Cedeno has already came to evaluate the patient. She did order a follow- up abdominal CT with contrast. We are awaiting results. In the meantime, patient remains hypotensive. She has received a total of 2.5 L of crystalloid fluid boluses. She was also found to be anemic, and is receiving a unit of packed red blood cells. No overt signs of bleeding were noted. She is currently anticoagulated on Eliquis. Would like to avoid vasopressors if possible. Normal saline is infusing at 75 mL/h. TPN infusing at 52 MLS per hour. I did agree with transfer to the intensive care unit for closer monitoring. Currently she is lying fairly comfortably in bed on 2 L/min nasal cannula. She is alert. She is in no distress. She continues to report some abdominal pains. Midline abdominal incision is approximated without any drainage. Stoma is dusky, however, ostomy appears functional. There is a moderate amount of brown stool. Abdomen is distended. Prior to this, reportedly tolerating minimal amount of oral intake. No nausea or vomiting. No hematemesis. Afebrile. Patient is currently covered on a combination of Unasyn, Flagyl, and Eraxis. Abdominal cultures are growing Enterococcus faecalis and anaerobes. Blood cultures have remained negative. Infectious disease specialist is on the case. Post recent CBC includes a jump in patient's WBC count to 30.7, hemoglobin 6.4, hematocrit 21.4, platelets 490. Lactic acid level levels are trending up and currently 9.3. Most recent CMP from yesterday includes a sodium 131, potassium 4.7, chloride 100, serum bicarb 29, BUN 23, creatinine 0.47, glucose 89. Eybgl-so-[id number] glucose is 367. Currently on ACHS insulin coverage and 5 units of Levemir. CGA 1939, urinary [address] of the abdomen pelvis is pending. Objective - Vital Signs Vital signs: Vital Signs Temp 97.4 F L 11/24/23 00:00 Pulse 95 11/24/23 03:23 Resp 24 11/24/23 03:23 BP 102/57 11/24/23 03:23 Pulse Ox 93 L 11/24/23 03:23 FiO2 Intake & Output 11/23/23 11/23/23 11/24/23 06:59 18:59 06:59 Intake Total 99.583 236 9.061 Output Total 2300 200 Balance 99.583 -2064 -190.939 Weight 87 kg Intake: Intake, IV Titration 99.583 9.061 Amount Diltiazem 125 mg In 99.583 Sodium Chloride 0.9% 100 ml @ 5 MG/HR 5 mls/hr IV .Q24H [facility] Rx#:[id number] Norepinephrine 4 mg In 9.061 Sodium Chloride 0.9% 250 ml @ 0.03 MCG/KG/MIN 9. 944 mls/hr IV .Q24H [facility] Rx#:[id number] Oral 236 Blood Product 0 Rc As-1 Unit 0 [id number] Output: Urine 2000 Stool 300 200 Other: Voiding Method Indwelling Catheter Indwelling Catheter External Catheter - Exam GENERAL EXAM: Alert, 88-year-old white female, fairly comfortable in no apparent distress. HEAD: Normocephalic and atraumatic EYES: Normal reaction of pupils, equal size. NOSE: Clear with pink turbinates. THROAT: No erythema or exudates. NECK: No masses, no JVD. CHEST: No chest wall deformity. LUNGS: Equal air entry with diminished bibasilar lung sounds. No crackles, wheeze, rhonchi or dullness. On 2 L/min nasal cannula. No conversational dyspnea or accessory muscle use while at rest CVS: S1 and S2 normal with no audible murmur, irregular rhythm. No extra heart sounds ABDOMEN: Mildly distended abdomen, midline abdominal incision approximated without any drainage, stoma is dusky, appears functional with moderate amount of brown stool. Bowel sounds are active. No guarding or rigidity. Facial grimacing with palpation. SPINE: No scoliosis or deformity SKIN: Generalized pallor CENTRAL NERVOUS SYSTEM: No focal deficits, tone is normal in all 4 extremities. EXTREMITIES: Right arm PICC line. There mild pitting bilateral ankle edema. No clubbing, or cyanosis. Peripheral pulses are weak and thready. - Labs CBC & Chem 7: 11/24/23 00:14 11/23/23 06:36 Labs: Abnormal Lab Results - Last 24 Hours (Table) 11/23/23 11/23/23 11/23/23 Range/Units 06:22 06:36 06:36 WBC 22.9 H (3.8-10.6) k/uL RBC 2.93 L (3.80-5.40) m/uL Hgb 9.4 L (11.4-16.0) gm/dL Hct 29.7 L (34.0-46.0) % MCV 101.3 H (80.0-100.0) fL MCHC (31.0-37.0) g/dL Plt Count 477 H (150-450) k/uL Neutrophils # 18.0 H (1.3-7.7) k/uL Neutrophils # (Manual) (1.3-7.7) k/uL Lymphocytes # (Manual) (1.0-4.8) k/uL Monocytes # (Manual) (0-1.0) k/uL Sodium 131 L (137-145) mmol/L BUN 23 H (7-17) mg/dL Creatinine 0.47 L (0.52-1.04) mg/dL Glucose 230 H (74-99) mg/dL POC Glucose (mg/dL) 259 H (70-110) mg/dL Plasma Lactic Acid Gagan (0.7-2.0) mmol/L Calcium 8.2 L (8.4-10.2) mg/dL Alkaline Phosphatase 127 H (38-126) U/L Total Protein 4.5 L (6.3-8.2) g/dL Albumin 2.2 L (3.5-5.0) g/dL Crossmatch 11/23/23 11/23/23 11/23/23 Range/Units 12:01 18:04 21:17 WBC (3.8-10.6) k/uL RBC (3.80-5.40) m/uL Hgb (11.4-16.0) gm/dL Hct (34.0-46.0) % MCV (80.0-100.0) fL MCHC (31.0-37.0) g/dL Plt Count (150-450) k/uL Neutrophils # (1.3-7.7) k/uL Neutrophils # (Manual) (1.3-7.7) k/uL Lymphocytes # (Manual) (1.0-4.8) k/uL Monocytes # (Manual) (0-1.0) k/uL Sodium (137-145) mmol/L BUN (7-17) mg/dL Creatinine (0.52-1.04) mg/dL Glucose (74-99) mg/dL POC Glucose (mg/dL) 255 H 293 H (70-110) mg/dL Plasma Lactic Acid Gagan 5.9 H* (0.7-2.0) mmol/L Calcium (8.4-10.2) mg/dL Alkaline Phosphatase (38-126) U/L Total Protein (6.3-8.2) g/dL Albumin (3.5-5.0) g/dL Crossmatch 11/24/23 11/24/23 11/24/23 Range/Units 00:14 00:14 00:35 WBC 30.7 H (3.8-10.6) k/uL RBC 2.00 L (3.80-5.40) m/uL Hgb 6.4 L* D (11.4-16.0) gm/dL Hct 21.4 L (34.0-46.0) % MCV 106.8 H D (80.0-100.0) fL MCHC 30.0 L (31.0-37.0) g/dL Plt Count 490 H (150-450) k/uL Neutrophils # (1.3-7.7) k/uL Neutrophils # (Manual) 22.70 H (1.3-7.7) k/uL Lymphocytes # (Manual) 6.75 H (1.0-4.8) k/uL Monocytes # (Manual) 1.23 H (0-1.0) k/uL Sodium (137-145) mmol/L BUN (7-17) mg/dL Creatinine (0.52-1.04) mg/dL Glucose (74-99) mg/dL POC Glucose (mg/dL) 348 H (70-110) mg/dL Plasma Lactic Acid Gagan 9.3 H* (0.7-2.0) mmol/L Calcium (8.4-10.2) mg/dL Alkaline Phosphatase (38-126) U/L Total Protein (6.3-8.2) g/dL Albumin (3.5-5.0) g/dL Crossmatch 11/24/23 11/24/23 Range/Units 01:14 01:44 WBC (3.8-10.6) k/uL RBC (3.80-5.40) m/uL Hgb (11.4-16.0) gm/dL Hct (34.0-46.0) % MCV (80.0-100.0) fL MCHC (31.0-37.0) g/dL Plt Count (150-450) k/uL Neutrophils # (1.3-7.7) k/uL Neutrophils # (Manual) (1.3-7.7) k/uL Lymphocytes # (Manual) (1.0-4.8) k/uL Monocytes # (Manual) (0-1.0) k/uL Sodium (137-145) mmol/L BUN (7-17) mg/dL Creatinine (0.52-1.04) mg/dL Glucose (74-99) mg/dL POC Glucose (mg/dL) 367 H (70-110) mg/dL Plasma Lactic Acid Gagan (0.7-2.0) mmol/L Calcium (8.4-10.2) mg/dL Alkaline Phosphatase (38-126) U/L Total Protein (6.3-8.2) g/dL Albumin (3.5-5.0) g/dL Crossmatch See Detail Assessment and Plan Assessment: Hypotension, possible abdominal sepsis/septic shock and additional Abdominal cultures positive for Enterococcus faecalis and bacteroides Neuroendocrine tumor with liver metastasis Partial bowel obstruction status post operative day #19 following exploratory laparotomy; findings included a mid to distal sigmoid obstructing colon mass, moderately distended transverse colon without perforation decompressed via depressive colotomy, bowel ischemia involving the entire small and large bowel. She did undergo sigmoid resection, descending colostomy, open cholecystectomy, and liver biopsy. Ischemic colitis with necrotic colostomy, status postoperative day #2 following intraoperative colonoscopy via stoma for ischemic colitis, revision of descending colostomy with further bowel resection, and drainage of peritoneal ascites. Acute leukocytosis, worsening Anemia, hemoglobin 6.4 g/dL, currently undergoing 1 unit PRBC transfusion Hyperglycemia, likely exacerbated by TPN infusion Lactic acidemia, worsening Small bilateral pleural effusions Cardiomyopathy, ejection fraction 35 to 40% Chronic atrial fibrillation, with controlled ventricular response History of GERD History of hypothyroidism History of hyperlipidemia Plan: Rapid response called early this morning for hypotension. I agree with transfer to the intensive care unit. She is currently receiving a unit one unit of PRBCs. Also receiving an additional 1 L crystalloid fluid bolus. Normal saline maintenance fluids increased to 130 MLS per hour. Hypotension would likely aggravate patient's bowel ischemia. Would like to avoid vasopressors if possi ble. Surgeon has been in to evaluate patient. Follow-up CT of the abdomen and pelvis with contrast is pending. Lactic acid trending, currently 9.3 Antibiotics are being managed by infectious disease specialist, currently on a combination of Unasyn, Flagyl, and Eraxis. Blood cultures have so far remained negative. Abdominal culture positive for Enterococcus faecalis and bacteroides Start patient on insulin infusion per protocol. Multiple clinical specialists are following. Patient's CODE STATUS is currently DO NOT RESUSCITATE/DO NOT INTUBATE. This has been verified with patient. Overall prognosis is guarded. Patient will be monitored in the intensive care unit, further recommendations are forthcoming. I have personally seen and examined the patient, performed the documentation and the assessment and plan as written. Number of minutes spent on the visit:20 Time with Patient: Less than 30
[2023-11-24 05:10] LABS: Glucose,Whole Blood 301 mg/dL (70-110)
[2023-11-24] MEDS: INSULIN REGULAR 100 UNIT in SODIUM CHLORIDE 0.9% 100 ML IV SCH (05:24)
[2023-11-24 06:11] LABS: Glucose,Whole Blood 302 mg/dL (70-110)
[2023-11-24 06:28] LABS: HCT 27.5 % (34.0-46.0); Hypochromasia Marked; MCH 31.8 pg (25.0-35.0); MCHC 31.3 g/dL (31.0-37.0); Macrocytosis Slight; Mean Platelet Volume 8.8; Platelet Count 471 k/uL (150-450); WBC 40.6 k/uL (3.8-10.6)
[2023-11-24 06:36] LABS: Ionized Calcium 4.4 mg/dL (4.5-5.3)
[2023-11-24 06:40] LABS: ALT 53 U/L (4-34); AST 147 U/L (14-36); African American GFR (CKD) >90 (>60 ml/min/1.73 sqM); Albumin 1.8 g/dL (3.5-5.0); Alkaline Phosphatase 93 U/L (38-126); Anion Gap 5 mmol/L; Blood Urea Nitrogen 30 mg/dL (7-17); Calcium 7.3 mg/dL (8.4-10.2); Carbon Dioxide 23 mmol/L (22-30); Chloride 104 mmol/L (98-107); Glucose 280 mg/dL (74-99); Magnesium 1.9 mg/dL (1.6-2.3); Non-African American GFR(CKD) 82 (>60 ml/min/1.73 sqM); Phosphorus 3.5 mg/dL (2.5-4.5); Sodium 132 mmol/L (137-145); Total Bilirubin 0.6 mg/dL (0.2-1.3); Total Protein 3.7 g/dL (6.3-8.2)
[2023-11-24 06:52] LABS: HGB 8.6 gm/dL (11.4-16.0)
[2023-11-24 06:53] LABS: MCV 101.6 fL (80.0-100.0)
[2023-11-24 06:59] LABS: Glucose,Whole Blood 333 mg/dL (70-110)
[2023-11-24] MEDS ORDERED: MIDODRINE 5 MG TAB PO SCH (07:30)
[2023-11-24 07:43] LABS: INR 1.6 (<1.2); Partial Thromboplastin Time 24.5 sec (22.0-30.0); Prothrombin Time 16.1 sec (10.0-12.5)
--- NOTE | 2023-11-24 08:09 | P.PN ---
Subjective Progress Note Date: 11/24/23 The patient is an 88-year-old female patient with extensive medical history was admitted to the hospital with bowel obstruction/possible ischemic bowel underwent surgery and we are following up with the patient regarding atrial fibrillation. November 22, 2023 The patient was seen and evaluated this morning. She is in atrial fibrillation with controlled heart rate. She is hemodynamically stable. She was on heparin IV but that is on hold because she is going for stoma revision. She is on amiodarone as well as Cardizem. The examination is remarkable for irregular rhythm with a stable vital signs and diminished breathing sounds bilaterally and no edema was noted November 24, 2023 The patient was seen and evaluated this morning she was transferred to the intensive care unit yesterday because of hypotension. She was found to be anemic. He is 1 unit of packed RBC. Currently she is on small dose of norepinephrine. We are holding the oral anticoagulation at this point. Decrease the dose of metoprolol and increase the dose of amiodarone. The examination is remarkable for diminished breathing sounds bilaterally with bilateral lower extremities edema as well. Assessment Bowel obstruction status post surgery Atrial fibrillation with controlled heart rate Hypotension requiring norepinephrine Anemia and required blood transfusion Multiple comorbid conditions Plan Increase the dose of metoprolol Increase dose of amiodarone Hold anticoagulation Continue monitor the hemoglobin Objective - Vital Signs Vital signs: Vital Signs Temp 96.2 F L 11/24/23 04:55 Pulse 125 H 11/24/23 07:00 Resp 29 H 11/24/23 07:00 BP 99/83 11/24/23 07:00 Pulse Ox 83 L 11/24/23 07:00 FiO2 Intake & Output 11/23/23 11/24/23 11/24/23 18:59 06:59 18:59 Intake Total 236 1951.841 134.9 Output Total 2300 570 50 Balance -2064 1381.841 84.9 Intake: IV 1619 130 Ampicillin-Sulbactam 3 gm 100 In Sodium Chloride 0.9% 100 ml @ 200 mls/hr IVPB Q6H [facility] Rx#:[id number] Sodium Chloride 0.9% 1, 520 130 000 ml @ 130 mls/hr IV . Q7H42M [facility] Rx#:[id number] Sodium Chloride 0.9% 1, 999 000 ml @ 999 mls/hr IV . Q1H1M [facility] Rx#:[id number] Intake, IV Titration 22.841 4.9 Amount Insulin Regular 100 unit 2.4 4.9 In Sodium Chloride 0.9% 100 ml @ Titrate IV .Q0M [facility] Rx#:[id number] Norepinephrine 4 mg In 20.441 Sodium Chloride 0.9% 250 ml @ 0.03 MCG/KG/MIN 9. 944 mls/hr IV .Q24H [facility] Rx#:[id number] Oral 236 Blood Product 310 Rc As-1 Unit 310 [id number] Output: Urine 2000 370 50 Stool 300 200 Other: Voiding Method Indwelling Catheter Indwelling Catheter - Labs CBC & Chem 7: 11/24/23 06:04 11/24/23 06:04 Labs: Abnormal Lab Results - Last 24 Hours (Table) 11/23/23 11/23/23 11/23/23 Range/Units 06:36 12:01 18:04 WBC (3.8-10.6) k/uL RBC (3.80-5.40) m/uL Hgb (11.4-16.0) gm/dL Hct (34.0-46.0) % MCV (80.0-100.0) fL MCHC (31.0-37.0) g/dL Plt Count (150-450) k/uL Neutrophils # (Manual) (1.3-7.7) k/uL Lymphocytes # (Manual) (1.0-4.8) k/uL Monocytes # (Manual) (0-1.0) k/uL PT (10.0-12.5) sec INR (<1.2) Sodium 131 L (137-145) mmol/L BUN 23 H (7-17) mg/dL Creatinine 0.47 L (0.52-1.04) mg/dL Glucose 230 H (74-99) mg/dL POC Glucose (mg/dL) 255 H 293 H (70-110) mg/dL Plasma Lactic Acid Gagan (0.7-2.0) mmol/L Calcium 8.2 L (8.4-10.2) mg/dL Ionized Calcium Mario (4.5-5.3) mg/dL AST (14-36) U/L ALT (4-34) U/L Alkaline Phosphatase 127 H (38-126) U/L Total Protein 4.5 L (6.3-8.2) g/dL Albumin 2.2 L (3.5-5.0) g/dL Crossmatch 11/23/23 11/24/23 11/24/23 Range/Units 21:17 00:14 00:14 WBC 30.7 H (3.8-10.6) k/uL RBC 2.00 L (3.80-5.40) m/uL Hgb 6.4 L* D (11.4-16.0) gm/dL Hct 21.4 L (34.0-46.0) % MCV 106.8 H D (80.0-100.0) fL MCHC 30.0 L (31.0-37.0) g/dL Plt Count 490 H (150-450) k/uL Neutrophils # (Manual) 22.70 H (1.3-7.7) k/uL Lymphocytes # (Manual) 6.75 H (1.0-4.8) k/uL Monocytes # (Manual) 1.23 H (0-1.0) k/uL PT (10.0-12.5) sec INR (<1.2) Sodium (137-145) mmol/L BUN (7-17) mg/dL Creatinine (0.52-1.04) mg/dL Glucose (74-99) mg/dL POC Glucose (mg/dL) (70-110) mg/dL Plasma Lactic Acid Gagan 5.9 H* 9.3 H* (0.7-2.0) mmol/L Calcium (8.4-10.2) mg/dL Ionized Calcium Mario (4.5-5.3) mg/dL AST (14-36) U/L ALT (4-34) U/L Alkaline Phosphatase (38-126) U/L Total Protein (6.3-8.2) g/dL Albumin (3.5-5.0) g/dL Crossmatch 11/24/23 11/24/23 11/24/23 Range/Units 00:35 01:14 01:44 WBC (3.8-10.6) k/uL RBC (3.80-5.40) m/uL Hgb (11.4-16.0) gm/dL Hct (34.0-46.0) % MCV (80.0-100.0) fL MCHC (31.0-37.0) g/dL Plt Count (150-450) k/uL Neutrophils # (Manual) (1.3-7.7) k/uL Lymphocytes # (Manual) (1.0-4.8) k/uL Monocytes # (Manual) (0-1.0) k/uL PT (10.0-12.5) sec INR (<1.2) Sodium (137-145) mmol/L BUN (7-17) mg/dL Creatinine (0.52-1.04) mg/dL Glucose (74-99) mg/dL POC Glucose (mg/dL) 348 H 367 H (70-110) mg/dL Plasma Lactic Acid Gagan (0.7-2.0) mmol/L Calcium (8.4-10.2) mg/dL Ionized Calcium Mario (4.5-5.3) mg/dL AST (14-36) U/L ALT (4-34) U/L Alkaline Phosphatase (38-126) U/L Total Protein (6.3-8.2) g/dL Albumin (3.5-5.0) g/dL Crossmatch See Detail 11/24/23 11/24/23 11/24/23 Range/Units 03:53 05:09 06:04 WBC (3.8-10.6) k/uL RBC (3.80-5.40) m/uL Hgb (11.4-16.0) gm/dL Hct (34.0-46.0) % MCV (80.0-100.0) fL MCHC (31.0-37.0) g/dL Plt Count (150-450) k/uL Neutrophils # (Manual) (1.3-7.7) k/uL Lymphocytes # (Manual) (1.0-4.8) k/uL Monocytes # (Manual) (0-1.0) k/uL PT (10.0-12.5) sec INR (<1.2) Sodium 132 L (137-145) mmol/L BUN 30 H (7-17) mg/dL Creatinine (0.52-1.04) mg/dL Glucose 280 H (74-99) mg/dL POC Glucose (mg/dL) 257 H 301 H (70-110) mg/dL Plasma Lactic Acid Gagan (0.7-2.0) mmol/L Calcium 7.3 L (8.4-10.2) mg/dL Ionized Calcium Mario 4.4 L (4.5-5.3) mg/dL AST 147 H (14-36) U/L ALT 53 H (4-34) U/L Alkaline Phosphatase (38-126) U/L Total Protein 3.7 L (6.3-8.2) g/dL Albumin 1.8 L (3.5-5.0) g/dL Crossmatch 11/24/23 11/24/23 11/24/23 Range/Units 06:04 06:04 06:04 WBC 40.6 H (3.8-10.6) k/uL RBC 2.70 L (3.80-5.40) m/uL Hgb 8.6 L D (11.4-16.0) gm/dL Hct 27.5 L (34.0-46.0) % MCV 101.6 H D (80.0-100.0) fL MCHC (31.0-37.0) g/dL Plt Count 471 H (150-450) k/uL Neutrophils # (Manual) (1.3-7.7) k/uL Lymphocytes # (Manual) (1.0-4.8) k/uL Monocytes # (Manual) (0-1.0) k/uL PT 16.1 H (10.0-12.5) sec INR 1.6 H (<1.2) Sodium (137-145) mmol/L BUN (7-17) mg/dL Creatinine (0.52-1.04) mg/dL Glucose (74-99) mg/dL POC Glucose (mg/dL) (70-110) mg/dL Plasma Lactic Acid Gagan 5.2 H* (0.7-2.0) mmol/L Calcium (8.4-10.2) mg/dL Ionized Calcium Mario (4.5-5.3) mg/dL AST (14-36) U/L ALT (4-34) U/L Alkaline Phosphatase (38-126) U/L Total Protein (6.3-8.2) g/dL Albumin (3.5-5.0) g/dL Crossmatch 11/24/23 11/24/23 Range/Units 06:10 06:58 WBC (3.8-10.6) k/uL RBC (3.80-5.40) m/uL Hgb (11.4-16.0) gm/dL Hct (34.0-46.0) % MCV (80.0-100.0) fL MCHC (31.0-37.0) g/dL Plt Count (150-450) k/uL Neutrophils # (Manual) (1.3-7.7) k/uL Lymphocytes # (Manual) (1.0-4.8) k/uL Monocytes # (Manual) (0-1.0) k/uL PT (10.0-12.5) sec INR (<1.2) Sodium (137-145) mmol/L BUN (7-17) mg/dL Creatinine (0.52-1.04) mg/dL Glucose (74-99) mg/dL POC Glucose (mg/dL) 302 H 333 H (70-110) mg/dL Plasma Lactic Acid Gagan (0.7-2.0) mmol/L Calcium (8.4-10.2) mg/dL Ionized Calcium Mario (4.5-5.3) mg/dL AST (14-36) U/L ALT (4-34) U/L Alkaline Phosphatase (38-126) U/L Total Protein (6.3-8.2) g/dL Albumin (3.5-5.0) g/dL Crossmatch
--- NOTE | 2023-11-24 08:14 | P.PN ---
Subjective Progress Note Date: 11/24/23 CHIEF COMPLAINT: Bowel obstruction due to metastatic cancer HISTORY OF ILLNESS: Patient is a 88-year-old female transferred from stepdown to intensive care unit overnight after returning hemoglobin less than 7.0. This morning patient was seen alongside cardiology team. Systolic blood pressures 80s. She received at least 1 unit of blood for hemoglobin 6.4-8.6. No reports of diffuse abdominal pain. Review of organ systems: She denies chest pain. She denies acute shortness of breath. No reports of fevers or chills. VITAL SIGNS: Reviewed GENERAL: Well-developed in mild distress. HEENT: No sclera icterus. Extraocular movements grossly intact. Moist buccal mucosa. Head is atraumatic, normocephalic. Hears conversational speech. No nasal drainage. CHEST: Mild tachypnea. CARDIOVASCULAR: Palpable 2+ radial pulses. ABDOMEN: No diffuse peritonitis. Ostomy functioning. MUSCULOSKELETAL: No clubbing or cyanosis. 3+ pitting edema with 2+ pitting edema at the knees bilaterally NEUROLOGIC: No focal or lateralizing signs. Cranial nerves II through XII grossly intact. PSYCH: Appropriate affect. Alert and oriented to person, place and time. SKIN: Well perfused. LABS: LFTs elevated. WBC elevated at 40,000, INR 1.6, hemoglobin 8.6 after 1 unit ASSESSMENT: 1. Ischemic colitis with necrosis of colostomy 2. Small and large bowel ischemia due to low flow state from atrial fibrillati on 3. 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 Atrial fibrillation now rate controlled 5. Gastroesophageal reflux disease 6. Hypothyroidism 7. Hypertensive heart disease 8. Hyperlipidemia 9. Chronic anticoagulation 10. Chronic lower back pain 11. History of breast cancer 12. Acute cholecystitis 13. Abdominal ascites. 14. 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 Severe protein calorie malnutrition 16. Acute intestinal angina 17. Lactic acidosis 18. Acute anemia 19. Tachypnea PLAN: 1. Per discussion with radiology, all anticoagulants are discontinued. Adjustment of metoprolol to lower dose due to pre-existing low flow state and acute intestinal angina. 2. Patient has tachypnea and pending assessment by [employer] group [employer] for further assessment. 3. Global presentation consistent with poor perfusion state with evidence of elevated LFTs, lactic acidosis. 4. May benefit from bicarb drip to address lactic acidosis. 5. Overall in guarded care. Continue ICU management. Objective - Vital Signs Vital signs: Vital Signs Temp 96.2 F L 11/24/23 04:55 Pulse 125 H 11/24/23 07:00 Resp 29 H 11/24/23 07:00 BP 99/83 11/24/23 07:00 Pulse Ox 83 L 11/24/23 07:00 FiO2 Intake & Output 11/23/23 11/24/23 11/24/23 18:59 06:59 18:59 Intake Total 236 1951.841 134.9 Output Total 2300 570 50 Balance -2064 1381.841 84.9 Intake: IV 1619 130 Ampicillin-Sulbactam 3 gm 100 In Sodium Chloride 0.9% 100 ml @ 200 mls/hr IVPB Q6H [facility] Rx#:[id number] Sodium Chloride 0.9% 1, 520 130 000 ml @ 130 mls/hr IV . Q7H42M [facility] Rx#:[id number] Sodium Chloride 0.9% 1, 999 000 ml @ 999 mls/hr IV . Q1H1M [facility] Rx#:[id number] Intake, IV Titration 22.841 4.9 Amount Insulin Regular 100 unit 2.4 4.9 In Sodium Chloride 0.9% 100 ml @ Titrate IV .Q0M [facility] Rx#:[id number] Norepinephrine 4 mg In 20.441 Sodium Chloride 0.9% 250 ml @ 0.03 MCG/KG/MIN 9. 944 mls/hr IV .Q24H [facility] Rx#:[id number] Oral 236 Blood Product 310 Rc As-1 Unit 310 [id number] Output: Urine 2000 370 50 Stool 300 200 Other: Voiding Method Indwelling Catheter Indwelling Catheter - Labs CBC & Chem 7: 11/24/23 06:04 11/24/23 06:04 Labs: Abnormal Lab Results - Last 24 Hours (Table) 11/23/23 11/23/23 11/23/23 Range/Units 06:36 12:01 18:04 WBC (3.8-10.6) k/uL RBC (3.80-5.40) m/uL Hgb (11.4-16.0) gm/dL Hct (34.0-46.0) % MCV (80.0-100.0) fL MCHC (31.0-37.0) g/dL Plt Count (150-450) k/uL Neutrophils # (Manual) (1.3-7.7) k/uL Lymphocytes # (Manual) (1.0-4.8) k/uL Monocytes # (Manual) (0-1.0) k/uL PT (10.0-12.5) sec INR (<1.2) Sodium 131 L (137-145) mmol/L BUN 23 H (7-17) mg/dL Creatinine 0.47 L (0.52-1.04) mg/dL Glucose 230 H (74-99) mg/dL POC Glucose (mg/dL) 255 H 293 H (70-110) mg/dL Plasma Lactic Acid Gagan (0.7-2.0) mmol/L Calcium 8.2 L (8.4-10.2) mg/dL Ionized Calcium Mario (4.5-5.3) mg/dL AST (14-36) U/L ALT (4-34) U/L Alkaline Phosphatase 127 H (38-126) U/L Total Protein 4.5 L (6.3-8.2) g/dL Albumin 2.2 L (3.5-5.0) g/dL Crossmatch 11/23/23 11/24/23 11/24/23 Range/Units 21:17 00:14 00:14 WBC 30.7 H (3.8-10.6) k/uL RBC 2.00 L (3.80-5.40) m/uL Hgb 6.4 L* D (11.4-16.0) gm/dL Hct 21.4 L (34.0-46.0) % MCV 106.8 H D (80.0-100.0) fL MCHC 30.0 L (31.0-37.0) g/dL Plt Count 490 H (150-450) k/uL Neutrophils # (Manual) 22.70 H (1.3-7.7) k/uL Lymphocytes # (Manual) 6.75 H (1.0-4.8) k/uL Monocytes # (Manual) 1.23 H (0-1.0) k/uL PT (10.0-12.5) sec INR (<1.2) Sodium (137-145) mmol/L BUN (7-17) mg/dL Creatinine (0.52-1.04) mg/dL Glucose (74-99) mg/dL POC Glucose (mg/dL) (70-110) mg/dL Plasma Lactic Acid Gagan 5.9 H* 9.3 H* (0.7-2.0) mmol/L Calcium (8.4-10.2) mg/dL Ionized Calcium Mario (4.5-5.3) mg/dL AST (14-36) U/L ALT (4-34) U/L Alkaline Phosphatase (38-126) U/L Total Protein (6.3-8.2) g/dL Albumin (3.5-5.0) g/dL Crossmatch 11/24/23 11/24/23 11/24/23 Range/Units 00:35 01:14 01:44 WBC (3.8-10.6) k/uL RBC (3.80-5.40) m/uL Hgb (11.4-16.0) gm/dL Hct (34.0-46.0) % MCV (80.0-100.0) fL MCHC (31.0-37.0) g/dL Plt Count (150-450) k/uL Neutrophils # (Manual) (1.3-7.7) k/uL Lymphocytes # (Manual) (1.0-4.8) k/uL Monocytes # (Manual) (0-1.0) k/uL PT (10.0-12.5) sec INR (<1.2) Sodium (137-145) mmol/L BUN (7-17) mg/dL Creatinine (0.52-1.04) mg/dL Glucose (74-99) mg/dL POC Glucose (mg/dL) 348 H 367 H (70-110) mg/dL Plasma Lactic Acid Gagan (0.7-2.0) mmol/L Calcium (8.4-10.2) mg/dL Ionized Calcium Mario (4.5-5.3) mg/dL AST (14-36) U/L ALT (4-34) U/L Alkaline Phosphatase (38-126) U/L Total Protein (6.3-8.2) g/dL Albumin (3.5-5.0) g/dL Crossmatch See Detail 11/24/23 11/24/23 11/24/23 Range/Units 03:53 05:09 06:04 WBC (3.8-10.6) k/uL RBC (3.80-5.40) m/uL Hgb (11.4-16.0) gm/dL Hct (34.0-46.0) % MCV (80.0-100.0) fL MCHC (31.0-37.0) g/dL Plt Count (150-450) k/uL Neutrophils # (Manual) (1.3-7.7) k/uL Lymphocytes # (Manual) (1.0-4.8) k/uL Monocytes # (Manual) (0-1.0) k/uL PT (10.0-12.5) sec INR (<1.2) Sodium 132 L (137-145) mmol/L BUN 30 H (7-17) mg/dL Creatinine (0.52-1.04) mg/dL Glucose 280 H (74-99) mg/dL POC Glucose (mg/dL) 257 H 301 H (70-110) mg/dL Plasma Lactic Acid Gagan (0.7-2.0) mmol/L Calcium 7.3 L (8.4-10.2) mg/dL Ionized Calcium Mario 4.4 L (4.5-5.3) mg/dL AST 147 H (14-36) U/L ALT 53 H (4-34) U/L Alkaline Phosphatase (38-126) U/L Total Protein 3.7 L (6.3-8.2) g/dL Albumin 1.8 L (3.5-5.0) g/dL Crossmatch 11/24/23 11/24/23 11/24/23 Range/Units 06:04 06:04 06:04 WBC 40.6 H (3.8-10.6) k/uL RBC 2.70 L (3.80-5.40) m/uL Hgb 8.6 L D (11.4-16.0) gm/dL Hct 27.5 L (34.0-46.0) % MCV 101.6 H D (80.0-100.0) fL MCHC (31.0-37.0) g/dL Plt Count 471 H (150-450) k/uL Neutrophils # (Manual) (1.3-7.7) k/uL Lymphocytes # (Manual) (1.0-4.8) k/uL Monocytes # (Manual) (0-1.0) k/uL PT 16.1 H (10.0-12.5) sec INR 1.6 H (<1.2) Sodium (137-145) mmol/L BUN (7-17) mg/dL Creatinine (0.52-1.04) mg/dL Glucose (74-99) mg/dL POC Glucose (mg/dL) (70-110) mg/dL Plasma Lactic Acid Gagan 5.2 H* (0.7-2.0) mmol/L Calcium (8.4-10.2) mg/dL Ionized Calcium Mario (4.5-5.3) mg/dL AST (14-36) U/L ALT (4-34) U/L Alkaline Phosphatase (38-126) U/L Total Protein (6.3-8.2) g/dL Albumin (3.5-5.0) g/dL Crossmatch 11/24/23 11/24/23 Range/Units 06:10 06:58 WBC (3.8-10.6) k/uL RBC (3.80-5.40) m/uL Hgb (11.4-16.0) gm/dL Hct (34.0-46.0) % MCV (80.0-100.0) fL MCHC (31.0-37.0) g/dL Plt Count (150-450) k/uL Neutrophils # (Manual) (1.3-7.7) k/uL Lymphocytes # (Manual) (1.0-4.8) k/uL Monocytes # (Manual) (0-1.0) k/uL PT (10.0-12.5) sec INR (<1.2) Sodium (137-145) mmol/L BUN (7-17) mg/dL Creatinine (0.52-1.04) mg/dL Glucose (74-99) mg/dL POC Glucose (mg/dL) 302 H 333 H (70-110) mg/dL Plasma Lactic Acid Gagan (0.7-2.0) mmol/L Calcium (8.4-10.2) mg/dL Ionized Calcium Mario (4.5-5.3) mg/dL AST (14-36) U/L ALT (4-34) U/L Alkaline Phosphatase (38-126) U/L Total Protein (6.3-8.2) g/dL Albumin (3.5-5.0) g/dL Crossmatch
[2023-11-24 08:26] LABS: Band Neutrophils % 1 %; Lymphocytes # (M) 8.93 k/uL (1.0-4.8); Metamyelocytes # (M) 0.41 k/uL (0); Metamyelocytes % 1 %; Monocytes # (M) 0.81 k/uL (0-1.0); Neutrophils % (M) 75 %; Nucleated Red Blood Cells 0 /100 WBC (0-0); Total Cells Counted 200
[2023-11-24] MEDS ORDERED: Magnesium Replacement Protocol 1 EACH MISC MISCELLANE PRN (08:26)
--- NOTE | 2023-11-24 08:49 | XR ---
EXAMINATION TYPE: XR chest 1V portable DATE OF EXAM: 11/24/2023 COMPARISON: 11/09/2023 HISTORY: Hypoxemia TECHNIQUE: Single frontal view of the chest is obtained. FINDINGS: Right-sided PICC line with bilateral consolidation and small effusion. No pneumothorax. Di ffuse osteopenia, arthropathy of the shoulders and degenerative change of the spine. IMPRESSION: Bilateral infiltrate and small effusion correlate for pneumonia otherwise consider CHF.
[2023-11-24] MEDS: MAGNESIUM SULFATE-D5W PMX 1 GM in DEXTROSE/WATER 1 100ML.BAG IVPB ONE (08:57)
[2023-11-24] MEDS: MIDODRINE 5 MG TAB PO SCH (08:58)
[2023-11-24] MEDS: GABAPENTIN 300 MG CAP PO SCH (08:59)
[2023-11-24] MEDS: AMIODARONE 200 MG TAB PO SCH (08:59)
[2023-11-24 09:26] LABS: Glucose,Whole Blood 303 mg/dL (70-110)
--- NOTE | 2023-11-24 10:54 | P.PN ---
Subjective Progress Note Date: 11/24/23 88-year-old female with past medical history of IBS, hypothyroidism, hypertension and A-fib (on Eliquis), presented to the ED with a complaint of abdominal pain on 11/04. In the ED she underwent extensive evaluation. BP 156/74, HR 64, T 98.5F, RR 16, 95% on RA. CBC, CMP performed significant for WBC 14.1, MCV 101.6, Na 133, glu 120, AST 42, total protein 6.2. Lactic acid 1.1. KUB showed dilated loops of bowel. CT AP showed partial SBO of the sigmoid colon, colitis versus mass, multiple lesions in the liver, sclerotic lesion in the left femur and abnormal soft tissue within the mesentery near the cecum. Patient was started on Rocephin and Flagyl for treatment of colitis and admitted for Surgery evaluation. She developed A-Fib with RVR on 11/06, started on Amiodarone drip and Cardiology was consulted. Metoprolol was titrated and Amiodarone drip converted to PO on 11/07. Eliquis was held and patient was started on a heparin drip in preparation for surgery. PICC line inserted for TPN 11/08. Patient with worsening leukocytosis, ID consulted on 11/09, switched to Zosyn. Also started on Cardizem drip on 11/09 for better HR control by Cardiology. Underwent exploratory laparotomy with sigmoid resection, colostomy, cholecystectomy, liver biopsy with finding of sigmoid colon mass highly suspicious for malignancy with Dr. Cedeno on 11/11. Pathology came back positive for cholecystitis, neuro- endocrine tumor of the colon and liver biopsy. Leukocytosis worsened, Eraxis added by ID on 11/17. Peritoneal culture + enterococcus faceium and bacteroides thetaiotaomicron, Zosyn switched to Unasyn on 11/19. Stoma site appeared dark and dusky, she underwent revision of colostomy and partial colectomy for ischemic colitis and necrotic colostomy on 11/21. 11/23 Patient was seen and examined. POD 2 revision of colostomy and partial colectomy for ischemic colitis and necrotic colostomy. A-team called for hypo tension last night with lactic acidosis and decreased Hg of 6.4, transfused 1 unit PRBC and transferred to ICU for closer monitoring. CT AP obtained showing diffuse hepatic and osseous metastasis, mucosal wall thickening consistent with ischemic colitis, moderate pleural effusion and ascites/anasarca. Currently receiving TPN for nutrition. Currently on NDD3 high protein and calorie diet. Anticoagulation include Eliquis. CBC WBC 40.6, RBC 2.7, Hg 8.6, Hct 27.5, MCV 101.6, Plt 471. PT 16.1, INR 1.6. CMP Na 132, BUN 30, glu 280, Ca 7.3, AST 147, ALT 53, alb 1.8. Lactic acid 5.2. POC glucose ranging from 255-367 requiring initiation of insulin drip currently running at 9 units/hr. Antibiotics include Unasyn 3 g IV TID (D4), Flagyl 500 mg PO TID (D7) and Eraxis 100 mg IV QD (D7). General: non toxic, no distress, appears at stated age Derm: warm, dry Head: atraumatic, normocephalic, symmetric Eyes: EOMI, no lid lag, anicteric sclera Mouth: no lip lesion, mucus membranes moist Cardiovascular: S1S2 irreg, no murmur Lungs: CTA bilateral, no rhonchi, no rales , no accessory muscle use Ext: no gross muscle atrophy, no edema, no contractures Neuro: no focal neuro deficits Psych: Alert, oriented, appropriate affect Based on my assessment of this patient, this patient meets a high complexity level of care. Ischemic colitis with necrotic colostomy, Hypotension with Lactic acidosis: Status post revision of colostomy and partial colectomy POD 2. Surgery recommends avoiding Lasix or antihypertensive medication. Maintain MAP > 65 may need pressors. Partial SBO due to neuro-endocrine tumor: POD 12. [place] 5 1 tab PO BID PRN. IV antibiotics as below. Pathology report neuro-endocrine tumor of the color with metastatic lesions to the liver. TPN for nutrition started 11/08. NDD3 diet started 11/21. Surgery on board. Sepsis likely due to peritonitis and cholecystitis : Peritoneal Cx Enterococcus faecium, Bacteroides thetaiotaomicron. Unasyn 3g IV TID started 11/19. Flagyl 500 mg PO TID started 11/15. Anidulafungin 100 mg IV QD started 11/17. NS at 130 cc/hr. BCx negative so far. Acute blood loss anemia: Status post 1 PRBC 11/23. Transfuse if Hg < 7. Acute hypoxic respiratory failure secondary to bilateral pleural effusions: Lasix IV discontinued yesterday due to hypotension. Pulmonary on board. Atrial fibrillation with RVR: Maintain Mg > 2 and K > 4. Eliquis 5 mg PO BID. Currently off Cardizem drip. Amiodarone 200 mg PO QD. Metoprolol 100 mg PO BID + 50 mg PO HS. Cardiology following. Metastatic neuro-endocrine tumor: CA 15-3, 19-9, CEA wnl. AFP elvated 12.4. Pathology results as above. Oncology following. Transaminitis: Likely ischemic hepatitis from hypotensive state. HFrEF: EF 35-40%. Lasix IV discontinued last night due to hypotension. Metoprolol as above. ACEi on hold due to hypotension. Macrocytosis: B12 and Folate wnl. Subclinical hypothyroidism: Likely due to acute illness. Continue Synthroid 100 mcg PO QD. Repeat TSH/FT4 in 6 weeks. Urinary incontinence: Myrbetriq when able to PO. Hypertension: Losartan/HCTZ on hold. Metoprolol as above. Dyslipidemia: Lipitor 20 mg PO QD. CODE STATUS: NO CODE DVT Prophylaxis: Eliquis GI Prophylaxis: Protonix PO Designated medical POA if patient is not able to make medical decisions for themselves: I have reviewed the following cruise consultant notes: Surgery, Pulmonary note. I have reviewed the results of the following tests: CBC, BMP, Lactic acid, CT AP, POC glucose I have ordered the following tests: CBC and BMP. I have discussed the care of this patient with the following independent historian: I have independently interpreted the following test below: I have discussed the management of this patient with the following physician: Objective - Vital Signs Vital signs: Vital Signs Temp 96.2 F L 11/24/23 04:55 Pulse 125 H 11/24/23 07:00 Resp 29 H 11/24/23 07:00 BP 99/83 11/24/23 07:00 Pulse Ox 83 L 11/24/23 07:00 FiO2 Intake & Output 11/23/23 11/24/23 11/24/23 18:59 06:59 18:59 Intake Total 236 1951.841 134.9 Output Total 2300 570 50 Balance -4 1381.841 84.9 Intake: IV 1619 130 Ampicillin-Sulbactam 3 gm 100 In Sodium Chloride 0.9% 100 ml @ 200 mls/hr IVPB Q6H [facility] Rx#:[id number] Sodium Chloride 0.9% 1, 520 130 000 ml @ 130 mls/hr IV . Q7H42M [facility] Rx#:[id number] Sodium Chloride 0.9% 1, 999 000 ml @ 999 mls/hr IV . Q1H1M [facility] Rx#:[id number] Intake, IV Titration 22.841 4.9 Amount Insulin Regular 100 unit 2.4 4.9 In Sodium Chloride 0.9% 100 ml @ Titrate IV .Q0M [facility] Rx#:[id number] Norepinephrine 4 mg In 20.441 Sodium Chloride 0.9% 250 ml @ 0.03 MCG/KG/MIN 9. 944 mls/hr IV .Q24H [facility] Rx#:[id number] Oral 236 Blood Product 310 Rc As-1 Unit 310 [id number] Output: Urine 2000 370 50 Stool 300 200 Other: Voiding Method Indwelling Catheter Indwelling Catheter - Labs CBC & Chem 7: 11/24/23 06:04 11/24/23 06:04 Labs: Abnormal Lab Results - Last 24 Hours (Table) 11/23/23 11/23/23 11/23/23 Range/Units 06:36 06:36 12:01 WBC 22.9 H (3.8-10.6) k/uL RBC 2.93 L (3.80-5.40) m/uL Hgb 9.4 L (11.4-16.0) gm/dL Hct 29.7 L (34.0-46.0) % MCV 101.3 H (80.0-100.0) fL MCHC (31.0-37.0) g/dL Plt Count 477 H (150-450) k/uL Neutrophils # 18.0 H (1.3-7.7) k/uL Neutrophils # (Manual) (1.3-7.7) k/uL Lymphocytes # (Manual) (1.0-4.8) k/uL Monocytes # (Manual) (0-1.0) k/uL PT (10.0-12.5) sec INR (<1.2) Sodium 131 L (137-145) mmol/L BUN 23 H (7-17) mg/dL Creatinine 0.47 L (0.52-1.04) mg/dL Glucose 230 H (74-99) mg/dL POC Glucose (mg/dL) 255 H (70-110) mg/dL Plasma Lactic Acid Gagan (0.7-2.0) mmol/L Calcium 8.2 L (8.4-10.2) mg/dL Ionized Calcium Mario (4.5-5.3) mg/dL AST (14-36) U/L ALT (4-34) U/L Alkaline Phosphatase 127 H (38-126) U/L Total Protein 4.5 L (6.3-8.2) g/dL Albumin 2.2 L (3.5-5.0) g/dL Crossmatch 11/23/23 11/23/23 11/24/23 Range/Units 18:04 21:17 00:14 WBC 30.7 H (3.8-10.6) k/uL RBC 2.00 L (3.80-5.40) m/uL Hgb 6.4 L* D (11.4-16.0) gm/dL Hct 21.4 L (34.0-46.0) % MCV 106.8 H D (80.0-100.0) fL MCHC 30.0 L (31.0-37.0) g/dL Plt Count 490 H (150-450) k/uL Neutrophils # (1.3-7.7) k/uL Neutrophils # (Manual) 22.70 H (1.3-7.7) k/uL Lymphocytes # (Manual) 6.75 H (1.0-4.8) k/uL Monocytes # (Manual) 1.23 H (0-1.0) k/uL PT (10.0-12.5) sec INR (<1.2) Sodium (137-145) mmol/L BUN (7-17) mg/dL Creatinine (0.52-1.04) mg/dL Glucose (74-99) mg/dL POC Glucose (mg/dL) 293 H (70-110) mg/dL Plasma Lactic Acid Gagan 5.9 H* (0.7-2.0) mmol/L Calcium (8.4-10.2) mg/dL Ionized Calcium Mario (4.5-5.3) mg/dL AST (14-36) U/L ALT (4-34) U/L Alkaline Phosphatase (38-126) U/L Total Protein (6.3-8.2) g/dL Albumin (3.5-5.0) g/dL Crossmatch 11/24/23 11/24/23 11/24/23 Range/Units 00:14 00:35 01:14 WBC (3.8-10.6) k/uL RBC (3.80-5.40) m/uL Hgb (11.4-16.0) gm/dL Hct (34.0-46.0) % MCV (80.0-100.0) fL MCHC (31.0-37.0) g/dL Plt Count (150-450) k/uL Neutrophils # (1.3-7.7) k/uL Neutrophils # (Manual) (1.3-7.7) k/uL Lymphocytes # (Manual) (1.0-4.8) k/uL Monocytes # (Manual) (0-1.0) k/uL PT (10.0-12.5) sec INR (<1.2) Sodium (137-145) mmol/L BUN (7-17) mg/dL Creatinine (0.52-1.04) mg/dL Glucose (74-99) mg/dL POC Glucose (mg/dL) 348 H (70-110) mg/dL Plasma Lactic Acid Gagan 9.3 H* (0.7-2.0) mmol/L Calcium (8.4-10.2) mg/dL Ionized Calcium Mario (4.5-5.3) mg/dL AST (14-36) U/L ALT (4-34) U/L Alkaline Phosphatase (38-126) U/L Total Protein (6.3-8.2) g/dL Albumin (3.5-5.0) g/dL Crossmatch See Detail 11/24/23 11/24/23 11/24/23 Range/Units 01:44 03:53 05:09 WBC (3.8-10.6) k/uL RBC (3.80-5.40) m/uL Hgb (11.4-16.0) gm/dL Hct (34.0-46.0) % MCV (80.0-100.0) fL MCHC (31.0-37.0) g/dL Plt Count (150-450) k/uL Neutrophils # (1.3-7.7) k/uL Neutrophils # (Manual) (1.3-7.7) k/uL Lymphocytes # (Manual) (1.0-4.8) k/uL Monocytes # (Manual) (0-1.0) k/uL PT (10.0-12.5) sec INR (<1.2) Sodium (137-145) mmol/L BUN (7-17) mg/dL Creatinine (0.52-1.04) mg/dL Glucose (74-99) mg/dL POC Glucose (mg/dL) 367 H 257 H 301 H (70-110) mg/dL Plasma Lactic Acid Gagan (0.7-2.0) mmol/L Calcium (8.4-10.2) mg/dL Ionized Calcium Mario (4.5-5.3) mg/dL AST (14-36) U/L ALT (4-34) U/L Alkaline Phosphatase (38-126) U/L Total Protein (6.3-8.2) g/dL Albumin (3.5-5.0) g/dL Crossmatch 11/24/23 11/24/23 11/24/23 Range/Units 06:04 06:04 06:04 WBC 40.6 H (3.8-10.6) k/uL RBC 2.70 L (3.80-5.40) m/uL Hgb 8.6 L D (11.4-16.0) gm/dL Hct 27.5 L (34.0-46.0) % MCV 101.6 H D (80.0-100.0) fL MCHC (31.0-37.0) g/dL Plt Count 471 H (150-450) k/uL Neutrophils # (1.3-7.7) k/uL Neutrophils # (Manual) (1.3-7.7) k/uL Lymphocytes # (Manual) (1.0-4.8) k/uL Monocytes # (Manual) (0-1.0) k/uL PT 16.1 H (10.0-12.5) sec INR 1.6 H (<1.2) Sodium 132 L (137-145) mmol/L BUN 30 H (7-17) mg/dL Creatinine (0.52-1.04) mg/dL Glucose 280 H (74-99) mg/dL POC Glucose (mg/dL) (70-110) mg/dL Plasma Lactic Acid Gagan (0.7-2.0) mmol/L Calcium 7.3 L (8.4-10.2) mg/dL Ionized Calcium Mario 4.4 L (4.5-5.3) mg/dL AST 147 H (14-36) U/L ALT 53 H (4-34) U/L Alkaline Phosphatase (38-126) U/L Total Protein 3.7 L (6.3-8.2) g/dL Albumin 1.8 L (3.5-5.0) g/dL Crossmatch 11/24/23 11/24/23 11/24/23 Range/Units 06:04 06:10 06:58 WBC (3.8-10.6) k/uL RBC (3.80-5.40) m/uL Hgb (11.4-16.0) gm/dL Hct (34.0-46.0) % MCV (80.0-100.0) fL MCHC (31.0-37.0) g/dL Plt Count (150-450) k/uL Neutrophils # (1.3-7.7) k/uL Neutrophils # (Manual) (1.3-7.7) k/uL Lymphocytes # (Manual) (1.0-4.8) k/uL Monocytes # (Manual) (0-1.0) k/uL PT (10.0-12.5) sec INR (<1.2) Sodium (137-145) mmol/L BUN (7-17) mg/dL Creatinine (0.52-1.04) mg/dL Glucose (74-99) mg/dL POC Glucose (mg/dL) 302 H 333 H (70-110) mg/dL Plasma Lactic Acid Gagan 5.2 H* (0.7-2.0) mmol/L Calcium (8.4-10.2) mg/dL Ionized Calcium Mario (4.5-5.3) mg/dL AST (14-36) U/L ALT (4-34) U/L Alkaline Phosphatase (38-126) U/L Total Protein (6.3-8.2) g/dL Albumin (3.5-5.0) g/dL Crossmatch
[2023-11-24 10:56] LABS: Glucose,Whole Blood 316 mg/dL (70-110)
--- NOTE | 2023-11-24 11:17 | P.PN ---
Subjective patient is seen for follow-up for hyponatremia. Patient was transferred to the ICU last night due to continued hypotension. Started on levo fed. Hemoglobin had dropped to 6.4 and patient has received packed RBCs. Lactic acid and also increased to 9. Patient has received multiple fluid boluses and is currently maintained on IV fluids at 1 30 mL an hour along with TPN at 50 mL an hour. Patient appears to be mildly short of breath. No acute distress. Urine output at 20-40 mL an hour. Urine output has improved with improved blood pressure. CT abdomen does not show any acute findings. Ascites and pleural effusions noted. Objective - Vital Signs Vital signs: Vital Signs Temp 97.6 F 11/24/23 08:00 Pulse 122 H 11/24/23 10:00 Resp 28 H 11/24/23 10:00 BP 148/70 11/24/23 10:00 Pulse Ox 94 L 11/24/23 10:00 FiO2 Intake & Output 11/23/23 11/24/23 11/24/23 18:59 06:59 18:59 Intake Total 236 1951.841 657.336 Output Total 2300 570 110 Balance -2064 1381.841 547.336 Intake: IV 1619 620 Ampicillin-Sulbactam 3 gm 100 In Sodium Chloride 0.9% 100 ml @ 200 mls/hr IVPB Q6H [facility] Rx#:[id number] Magnesium Sulfate-D5w Pmx 100 1 gm In Dextrose/Water 1 100ml.bag @ 100 mls/hr IVPB ONCE [facility] Rx#: [id number] Sodium Chloride 0.9% 1, 520 520 000 ml @ 130 mls/hr IV . Q7H42M [facility] Rx#:[id number] Sodium Chloride 0.9% 1, 999 000 ml @ 999 mls/hr IV . Q1H1M [facility] Rx#:[id number] Intake, IV Titration 22.841 37.336 Amount Insulin Regular 100 unit 2.4 22.75 In Sodium Chloride 0.9% 100 ml @ Titrate IV .Q0M [facility] Rx#:[id number] Norepinephrine 4 mg In 20.441 14.586 Sodium Chloride 0.9% 250 ml @ 0.03 MCG/KG/MIN 9. 944 mls/hr IV .Q24H [facility] Rx#:[id number] Oral 236 Blood Product 310 Rc As-1 Unit 310 [id number] Output: Urine 2000 370 110 Stool 300 200 Other: Voiding Method Indwelling Catheter Indwelling Catheter Indwelling Catheter - Exam Patient is awake, comfortable, no acute distress. mildly short of breath Examination of the heart S1 and S2 Examination of the lungs bilateral breath sounds are heard Abdomen is soft , tender Examination of lower extremity shows edema 2+ bilaterally [employer] exam grossly intact - Labs CBC & Chem 7: 11/24/23 06:04 11/24/23 06:04 Labs: Abnormal Lab Results - Last 24 Hours (Table) 11/23/23 11/23/23 11/23/23 Range/Units 12:01 18:04 21:17 WBC (3.8-10.6) k/uL RBC (3.80-5.40) m/uL Hgb (11.4-16.0) gm/dL Hct (34.0-46.0) % MCV (80.0-100.0) fL MCHC (31.0-37.0) g/dL Plt Count (150-450) k/uL Neutrophils # (Manual) (1.3-7.7) k/uL Lymphocytes # (Manual) (1.0-4.8) k/uL Monocytes # (Manual) (0-1.0) k/uL Metamyelocytes # (Man) (0) k/uL PT (10.0-12.5) sec INR (<1.2) Sodium (137-145) mmol/L BUN (7-17) mg/dL Glucose (74-99) mg/dL POC Glucose (mg/dL) 255 H 293 H (70-110) mg/dL Plasma Lactic Acid Gagan 5.9 H* (0.7-2.0) mmol/L Calcium (8.4-10.2) mg/dL Ionized Calcium Mario (4.5-5.3) mg/dL AST (14-36) U/L ALT (4-34) U/L Total Protein (6.3-8.2) g/dL Albumin (3.5-5.0) g/dL Procalcitonin (0.02-0.09) ng/mL Crossmatch 11/24/23 11/24/23 11/24/23 Range/Units 00:14 00:14 00:35 WBC 30.7 H (3.8-10.6) k/uL RBC 2.00 L (3.80-5.40) m/uL Hgb 6.4 L* D (11.4-16.0) gm/dL Hct 21.4 L (34.0-46.0) % MCV 106.8 H D (80.0-100.0) fL MCHC 30.0 L (31.0-37.0) g/dL Plt Count 490 H (150-450) k/uL Neutrophils # (Manual) 22.70 H (1.3-7.7) k/uL Lymphocytes # (Manual) 6.75 H (1.0-4.8) k/uL Monocytes # (Manual) 1.23 H (0-1.0) k/uL Metamyelocytes # (Man) (0) k/uL PT (10.0-12.5) sec INR (<1.2) Sodium (137-145) mmol/L BUN (7-17) mg/dL Glucose (74-99) mg/dL POC Glucose (mg/dL) 348 H (70-110) mg/dL Plasma Lactic Acid Gagan 9.3 H* (0.7-2.0) mmol/L Calcium (8.4-10.2) mg/dL Ionized Calcium Mario (4.5-5.3) mg/dL AST (14-36) U/L ALT (4-34) U/L Total Protein (6.3-8.2) g/dL Albumin (3.5-5.0) g/dL Procalcitonin (0.02-0.09) ng/mL Crossmatch 11/24/23 11/24/23 11/24/23 Range/Units 01:14 01:44 03:53 WBC (3.8-10.6) k/uL RBC (3.80-5.40) m/uL Hgb (11.4-16.0) gm/dL Hct (34.0-46.0) % MCV (80.0-100.0) fL MCHC (31.0-37.0) g/dL Plt Count (150-450) k/uL Neutrophils # (Manual) (1.3-7.7) k/uL Lymphocytes # (Manual) (1.0-4.8) k/uL Monocytes # (Manual) (0-1.0) k/uL Metamyelocytes # (Man) (0) k/uL PT (10.0-12.5) sec INR (<1.2) Sodium (137-145) mmol/L BUN (7-17) mg/dL Glucose (74-99) mg/dL POC Glucose (mg/dL) 367 H 257 H (70-110) mg/dL Plasma Lactic Acid Gagan (0.7-2.0) mmol/L Calcium (8.4-10.2) mg/dL Ionized Calcium Mario (4.5-5.3) mg/dL AST (14-36) U/L ALT (4-34) U/L Total Protein (6.3-8.2) g/dL Albumin (3.5-5.0) g/dL Procalcitonin (0.02-0.09) ng/mL Crossmatch See Detail 11/24/23 11/24/23 11/24/23 Range/Units 05:09 06:04 06:04 WBC 40.6 H (3.8-10.6) k/uL RBC 2.70 L (3.80-5.40) m/uL Hgb 8.6 L D (11.4-16.0) gm/dL Hct 27.5 L (34.0-46.0) % MCV 101.6 H D (80.0-100.0) fL MCHC (31.0-37.0) g/dL Plt Count 471 H (150-450) k/uL Neutrophils # (Manual) 30.80 H (1.3-7.7) k/uL Lymphocytes # (Manual) 8.93 H (1.0-4.8) k/uL Monocytes # (Manual) (0-1.0) k/uL Metamyelocytes # (Man) 0.41 H (0) k/uL PT (10.0-12.5) sec INR (<1.2) Sodium 132 L (137-145) mmol/L BUN 30 H (7-17) mg/dL Glucose 280 H (74-99) mg/dL POC Glucose (mg/dL) 301 H (70-110) mg/dL Plasma Lactic Acid Gagan (0.7-2.0) mmol/L Calcium 7.3 L (8.4-10.2) mg/dL Ionized Calcium Mario 4.4 L (4.5-5.3) mg/dL AST 147 H (14-36) U/L ALT 53 H (4-34) U/L Total Protein 3.7 L (6.3-8.2) g/dL Albumin 1.8 L (3.5-5.0) g/dL Procalcitonin (0.02-0.09) ng/mL Crossmatch 11/24/23 11/24/23 11/24/23 Range/Units 06:04 06:04 06:04 WBC (3.8-10.6) k/uL RBC (3.80-5.40) m/uL Hgb (11.4-16.0) gm/dL Hct (34.0-46.0) % MCV (80.0-100.0) fL MCHC (31.0-37.0) g/dL Plt Count (150-450) k/uL Neutrophils # (Manual) (1.3-7.7) k/uL Lymphocytes # (Manual) (1.0-4.8) k/uL Monocytes # (Manual) (0-1.0) k/uL Metamyelocytes # (Man) (0) k/uL PT 16.1 H (10.0-12.5) sec INR 1.6 H (<1.2) Sodium (137-145) mmol/L BUN (7-17) mg/dL Glucose (74-99) mg/dL POC Glucose (mg/dL) (70-110) mg/dL Plasma Lactic Acid Gagan 5.2 H* (0.7-2.0) mmol/L Calcium (8.4-10.2) mg/dL Ionized Calcium Mario (4.5-5.3) mg/dL AST (14-36) U/L ALT (4-34) U/L Total Protein (6.3-8.2) g/dL Albumin (3.5-5.0) g/dL Procalcitonin 0.89 H (0.02-0.09) ng/mL Crossmatch 11/24/23 11/24/23 11/24/23 Range/Units 06:10 06:58 09:24 WBC (3.8-10.6) k/uL RBC (3.80-5.40) m/uL Hgb (11.4-16.0) gm/dL Hct (34.0-46.0) % MCV (80.0-100.0) fL MCHC (31.0-37.0) g/dL Plt Count (150-450) k/uL Neutrophils # (Manual) (1.3-7.7) k/uL Lymphocytes # (Manual) (1.0-4.8) k/uL Monocytes # (Manual) (0-1.0) k/uL Metamyelocytes # (Man) (0) k/uL PT (10.0-12.5) sec INR (<1.2) Sodium (137-145) mmol/L BUN (7-17) mg/dL Glucose (74-99) mg/dL POC Glucose (mg/dL) 302 H 333 H 303 H (70-110) mg/dL Plasma Lactic Acid Gagan (0.7-2.0) mmol/L Calcium (8.4-10.2) mg/dL Ionized Calcium Mario (4.5-5.3) mg/dL AST (14-36) U/L ALT (4-34) U/L Total Protein (6.3-8.2) g/dL Albumin (3.5-5.0) g/dL Procalcitonin (0.02-0.09) ng/mL Crossmatch 11/23/ Range/Units 10:55 WBC (3.8-10.6) k/uL RBC (3.80-5.40) m/uL Hgb (11.4-16.0) gm/dL Hct (34.0-46.0) % MCV (80.0-100.0) fL MCHC (31.0-37.0) g/dL Plt Count (150-450) k/uL Neutrophils # (Manual) (1.3-7.7) k/uL Lymphocytes # (Manual) (1.0-4.8) k/uL Monocytes # (Manual) (0-1.0) k/uL Metamyelocytes # (Man) (0) k/uL PT (10.0-12.5) sec INR (<1.2) Sodium (137-145) mmol/L BUN (7-17) mg/dL Glucose (74-99) mg/dL POC Glucose (mg/dL) 316 H (70-110) mg/dL Plasma Lactic Acid Gagan (0.7-2.0) mmol/L Calcium (8.4-10.2) mg/dL Ionized Calcium Mario (4.5-5.3) mg/dL AST (14-36) U/L ALT (4-34) U/L Total Protein (6.3-8.2) g/dL Albumin (3.5-5.0) g/dL Procalcitonin (0.02-0.09) ng/mL Crossmatch Assessment and Plan Assessment: 1. Hypervolemic mild hyponatremia. Sodium at 132 today. Currently on TPN. Also receiving normal saline at 1 30 mL an hour due to hypotension. And lactic acidosis. 2. Partial large bowel obstruction due to sigmoid mass s/p sigmoid colectomy with colostomy and cholecystectomy 3. Essential HTN 4. Hypokalemia, status post replacement 5. Volume overload 6. Lactic acidosis secondary to hypotension currently improving with improved blood pressure. 7. Anemia, acute blood loss with no obvious bleeding noted. Status post packed RBCs transfusion. Plan: decrease IV fluids as patient is hypervolemic. Increase midodrine continue antibiotics as per ID. Repeat labs in a.m. Lasix 1
[2023-11-24] MEDS: PIPERACILLIN-TAZOBACTAM 3.375 GM in SODIUM CHLORIDE 0.9% 100 ML IVPB SCH (12:09)
[2023-11-24] MEDS: FUROSEMIDE 10 MG/ML 4 ML VIAL IV STA (12:09)
[2023-11-24] MEDS ORDERED: [UNRECOGNIZED DRUG - REMARK] IV SCH (12:30)
[2023-11-24 12:39] LABS: HCT 25.7 % (34.0-46.0); Hypochromasia Marked; MCH 31.8 pg (25.0-35.0); MCV 102.6 fL (80.0-100.0); Macrocytosis Slight; Mean Platelet Volume 8.9; Platelet Count 451 k/uL (150-450); RDW 15.6 % (11.5-15.5); WBC 45.2 k/uL (3.8-10.6)
[2023-11-24 12:57] LABS: Glucose,Whole Blood 216 mg/dL (70-110)
--- NOTE | 2023-11-24 13:17 | P.PN ---
Subjective Progress Note Date: 11/24/23 Patient seen in the ICU at today's visit. Repeat CBC showed, hgb 6.4. She also became hypotensive, and was transferred to the ICU. 1 unit PRBCs given, repeat hgb today 8.6. WBC increased today to 40.6. Denies any episodes of acute bleeding, confirmed this with primary RN. Afebrile. Continues on IV abx, ID following. Objective - Vital Signs Vital signs: Vital Signs Temp 97.6 F 11/24/23 08:00 Pulse 122 H 11/24/23 10:00 Resp 28 H 11/24/23 10:00 BP 148/70 11/24/23 10:00 Pulse Ox 94 L 11/24/23 10:00 FiO2 Intake & Output 11/23/23 11/24/23 11/24/23 18:59 06:59 18:59 Intake Total 236 1951.841 657.336 Output Total 2300 570 110 Balance -2064 1381.841 547.336 Intake: IV 1619 620 Ampicillin-Sulbactam 3 gm 100 In Sodium Chloride 0.9% 100 ml @ 200 mls/hr IVPB Q6H SARAH Rx#:[id number] Magnesium Sulfate-D5w Pmx 100 1 gm In Dextrose/Water 1 100ml.bag @ 100 mls/hr IVPB ONCE ONE Rx#: [id number] Sodium Chloride 0.9% 1, 520 520 000 ml @ 130 mls/hr IV . Q7H42M SARAH Rx#:[id number] Sodium Chloride 0.9% 1, 999 000 ml @ 999 mls/hr IV . Q1H1M ONE Rx#:[id number] Intake, IV Titration 22.841 37.336 Amount Insulin Regular 100 unit 2.4 22.75 In Sodium Chloride 0.9% 100 ml @ Titrate IV .Q0M SARAH Rx#:[id number] Norepinephrine 4 mg In 20.441 14.586 Sodium Chloride 0.9% 250 ml @ 0.03 MCG/KG/MIN 9. 944 mls/hr IV .Q24H SARAH Rx#:[id number] Oral 236 Blood Product 310 Rc As-1 Unit 310 [id number] Output: Urine 2000 370 110 Stool 300 200 Other: Voiding Method Indwelling Catheter Indwelling Catheter Indwelling Catheter - Constitutional General appearance: Present: no acute distress - EENT Eyes: Present: anicteric sclerae, EOMI ENT: Present: hearing grossly normal - Respiratory Details: breathing even and unlabored - Cardiovascular Details: tachycardic - Gastrointestinal General gastrointestinal: Present: distended, tenderness - Integumentary Integumentary: Present: pale. Absent: cyanotic - Musculoskeletal Musculoskeletal: Present: generalized weakness - Psychiatric Psychiatric: Present: A&O x's 3 - Labs CBC & Chem 7: 11/24/23 06:04 11/24/23 06:04 Labs: Abnormal Lab Results - Last 24 Hours (Table) 11/23/23 11/23/23 11/23/23 Range/Units 12:01 18:04 21:17 WBC (3.8-10.6) k/uL RBC (3.80-5.40) m/uL Hgb (11.4-16.0) gm/dL Hct (34.0-46.0) % MCV (80.0-100.0) fL MCHC (31.0-37.0) g/dL Plt Count (150-450) k/uL Neutrophils # (Manual) (1.3-7.7) k/uL Lymphocytes # (Manual) (1.0-4.8) k/uL Monocytes # (Manual) (0-1.0) k/uL Metamyelocytes # (Man) (0) k/uL PT (10.0-12.5) sec INR (<1.2) Sodium (137-145) mmol/L BUN (7-17) mg/dL Glucose (74-99) mg/dL POC Glucose (mg/dL) 255 H 293 H (70-110) mg/dL Plasma Lactic Acid Gagan 5.9 H* (0.7-2.0) mmol/L Calcium (8.4-10.2) mg/dL Ionized Calcium Mario (4.5-5.3) mg/dL AST (14-36) U/L ALT (4-34) U/L Total Protein (6.3-8.2) g/dL Albumin (3.5-5.0) g/dL Procalcitonin (0.02-0.09) ng/mL Crossmatch 11/24/23 11/24/23 11/24/23 Range/Units 00:14 00:14 00:35 WBC 30.7 H (3.8-10.6) k/uL RBC 2.00 L (3.80-5.40) m/uL Hgb 6.4 L* D (11.4-16.0) gm/dL Hct 21.4 L (34.0-46.0) % MCV 106.8 H D (80.0-100.0) fL MCHC 30.0 L (31.0-37.0) g/dL Plt Count 490 H (150-450) k/uL Neutrophils # (Manual) 22.70 H (1.3-7.7) k/uL Lymphocytes # (Manual) 6.75 H (1.0-4.8) k/uL Monocytes # (Manual) 1.23 H (0-1.0) k/uL Metamyelocytes # (Man) (0) k/uL PT (10.0-12.5) sec INR (<1.2) Sodium (137-145) mmol/L BUN (7-17) mg/dL Glucose (74-99) mg/dL POC Glucose (mg/dL) 348 H (70-110) mg/dL Plasma Lactic Acid Gagan 9.3 H* (0.7-2.0) mmol/L Calcium (8.4-10.2) mg/dL Ionized Calcium Mario (4.5-5.3) mg/dL AST (14-36) U/L ALT (4-34) U/L Total Protein (6.3-8.2) g/dL Albumin (3.5-5.0) g/dL Procalcitonin (0.02-0.09) ng/mL Crossmatch 11/24/23 11/24/23 11/24/23 Range/Units 01:14 01:44 03:53 WBC (3.8-10.6) k/uL RBC (3.80-5.40) m/uL Hgb (11.4-16.0) gm/dL Hct (34.0-46.0) % MCV (80.0-100.0) fL MCHC (31.0-37.0) g/dL Plt Count (150-450) k/uL Neutrophils # (Manual) (1.3-7.7) k/uL Lymphocytes # (Manual) (1.0-4.8) k/uL Monocytes # (Manual) (0-1.0) k/uL Metamyelocytes # (Man) (0) k/uL PT (10.0-12.5) sec INR (<1.2) Sodium (137-145) mmol/L BUN (7-17) mg/dL Glucose (74-99) mg/dL POC Glucose (mg/dL) 367 H 257 H (70-110) mg/dL Plasma Lactic Acid Gagan (0.7-2.0) mmol/L Calcium (8.4-10.2) mg/dL Ionized Calcium Mario (4.5-5.3) mg/dL AST (14-36) U/L ALT (4-34) U/L Total Protein (6.3-8.2) g/dL Albumin (3.5-5.0) g/dL Procalcitonin (0.02-0.09) ng/mL Crossmatch See Detail 11/24/23 11/24/23 11/24/23 Range/Units 05:09 06:04 06:04 WBC 40.6 H (3.8-10.6) k/uL RBC 2.70 L (3.80-5.40) m/uL Hgb 8.6 L D (11.4-16.0) gm/dL Hct 27.5 L (34.0-46.0) % MCV 101.6 H D (80.0-100.0) fL MCHC (31.0-37.0) g/dL Plt Count 471 H (150-450) k/uL Neutrophils # (Manual) 30.80 H (1.3-7.7) k/uL Lymphocytes # (Manual) 8.93 H (1.0-4.8) k/uL Monocytes # (Manual) (0-1.0) k/uL Metamyelocytes # (Man) 0.41 H (0) k/uL PT (10.0-12.5) sec INR (<1.2) Sodium 132 L (137-145) mmol/L BUN 30 H (7-17) mg/dL Glucose 280 H (74-99) mg/dL POC Glucose (mg/dL) 301 H (70-110) mg/dL Plasma Lactic Acid Gagan (0.7-2.0) mmol/L Calcium 7.3 L (8.4-10.2) mg/dL Ionized Calcium Mario 4.4 L (4.5-5.3) mg/dL AST 147 H (14-36) U/L ALT 53 H (4-34) U/L Total Protein 3.7 L (6.3-8.2) g/dL Albumin 1.8 L (3.5-5.0) g/dL Procalcitonin (0.02-0.09) ng/mL Crossmatch 11/24/23 11/24/23 11/24/23 Range/Units 06:04 06:04 06:04 WBC (3.8-10.6) k/uL RBC (3.80-5.40) m/uL Hgb (11.4-16.0) gm/dL Hct (34.0-46.0) % MCV (80.0-100.0) fL MCHC (31.0-37.0) g/dL Plt Count (150-450) k/uL Neutrophils # (Manual) (1.3-7.7) k/uL Lymphocytes # (Manual) (1.0-4.8) k/uL Monocytes # (Manual) (0-1.0) k/uL Metamyelocytes # (Man) (0) k/uL PT 16.1 H (10.0-12.5) sec INR 1.6 H (<1.2) Sodium (137-145) mmol/L BUN (7-17) mg/dL Glucose (74-99) mg/dL POC Glucose (mg/dL) (70-110) mg/dL Plasma Lactic Acid Gagan 5.2 H* (0.7-2.0) mmol/L Calcium (8.4-10.2) mg/dL Ionized Calcium Mario (4.5-5.3) mg/dL AST (14-36) U/L ALT (4-34) U/L Total Protein (6.3-8.2) g/dL Albumin (3.5-5.0) g/dL Procalcitonin 0.89 H (0.02-0.09) ng/mL Crossmatch 11/24/23 11/24/23 11/24/23 Range/Units 06:10 06:58 09:24 WBC (3.8-10.6) k/uL RBC (3.80-5.40) m/uL Hgb (11.4-16.0) gm/dL Hct (34.0-46.0) % MCV (80.0-100.0) fL MCHC (31.0-37.0) g/dL Plt Count (150-450) k/uL Neutrophils # (Manual) (1.3-7.7) k/uL Lymphocytes # (Manual) (1.0-4.8) k/uL Monocytes # (Manual) (0-1.0) k/uL Metamyelocytes # (Man) (0) k/uL PT (10.0-12.5) sec INR (<1.2) Sodium (137-145) mmol/L BUN (7-17) mg/dL Glucose (74-99) mg/dL POC Glucose (mg/dL) 302 H 333 H 303 H (70-110) mg/dL Plasma Lactic Acid Gagan (0.7-2.0) mmol/L Calcium (8.4-10.2) mg/dL Ionized Calcium Mario (4.5-5.3) mg/dL AST (14-36) U/L ALT (4-34) U/L Total Protein (6.3-8.2) g/dL Albumin (3.5-5.0) g/dL Procalcitonin (0.02-0.09) ng/mL Crossmatch 11/24/23 Range/Units 10:55 WBC (3.8-10.6) k/uL RBC (3.80-5.40) m/uL Hgb (11.4-16.0) gm/dL Hct (34.0-46.0) % MCV (80.0-100.0) fL MCHC (31.0-37.0) g/dL Plt Count (150-450) k/uL Neutrophils # (Manual) (1.3-7.7) k/uL Lymphocytes # (Manual) (1.0-4.8) k/uL Monocytes # (Manual) (0-1.0) k/uL Metamyelocytes # (Man) (0) k/uL PT (10.0-12.5) sec INR (<1.2) Sodium (137-145) mmol/L BUN (7-17) mg/dL Glucose (74-99) mg/dL POC Glucose (mg/dL) 316 H (70-110) mg/dL Plasma Lactic Acid Gagan (0.7-2.0) mmol/L Calcium (8.4-10.2) mg/dL Ionized Calcium Mario (4.5-5.3) mg/dL AST (14-36) U/L ALT (4-34) U/L Total Protein (6.3-8.2) g/dL Albumin (3.5-5.0) g/dL Procalcitonin (0.02-0.09) ng/mL Crossmatch - Imaging and Cardiology CT scan - abdomen: report reviewed CT scan - pelvis: report reviewed Assessment and Plan (1) Neuroendocrine cancer Current Visit: Yes Status: Acute Priority: High Code(s): C7A.8 - OTHER MALIGNANT NEUROENDOCRINE TUMORS SNOMED Code(s): 140890804571762 (2) Liver lesion Current Visit: Yes Status: Acute Priority: High Code(s): K76.9 - LIVER DISEASE, UNSPECIFIED SNOMED Code(s): 569123855 (3) Partial bowel obstruction Current Visit: Yes Status: Acute Priority: High Code(s): K56.600 - PARTIAL INTESTINAL OBSTRUCTION, UNSPECIFIED TO CAUSE SNOMED Code(s): 05417838277208852 Plan: Bowel obstruction, Neuroendocrine tumor: -CT abdomen pelvis revealed partial large bowel obstruction of sigmoid colon secondary to colitis versus mass. Indeterminate enhancing lesions within the liver with sclerotic lesion within the left proximal femur. Abnormal soft tissue within the mesentery near the cecum. MRI liver showed multiple liver lesions concerning for metastatic disease. -S/p sigmoid colectomy and cholecystectomy. Peritoneal fluid cytology negative for malignancy. Liver and colon biopsies positive for metastatic well- differentiated neuroendocrine tumor -Underwent revision of descending colostomy, with partial colectomy due to ischemic colitis on 11/21 -Pathology has been reviewed with patient including plan of care and treatment options. Treatment would be on hold for 4-6 weeks s/p surgery to allow adequate healing time. -Plan to obtain dotatate PET scan outpt, however, patient will likely need rehab, which would delay PET CT, so we will obtain CT chest while inpt -CT chest revealed no evidence for lymphadenopathy or pulmonary mass/nodule. Indeterminate sclerotic area in the anterior aspect of T7 noted. Small bilateral pleural effusions with trace ascites -Serotonin, Chromogranin, and 24 hr urine HIAA ordered. Chromogranin elevated at 1939, other labs still pending Hx breast cancer, remote -Breast tumor markers WNL
[2023-11-24 13:39] LABS: Glucose,Whole Blood 212 mg/dL (70-110)
[2023-11-24 13:45] LABS: Band Neutrophils % 2 %; Lymphocytes # (M) 6.78 k/uL (1.0-4.8); Monocytes # (M) 1.36 k/uL (0-1.0); Neutrophils % (M) 81 %; Nucleated Red Blood Cells 0 /100 WBC (0-0); Total Cells Counted 200
[2023-11-24 13:46] LABS: Anisocytosis (M) Present
[2023-11-24 13:47] LABS: Allen Test Performed? Yes
[2023-11-24 13:48] LABS: ABG HCO3 23 mmol/L (21-25); ABG PCO2 85 mmHg (35-45); ABG PH 7.04 (7.35-7.45); ABG PO2 30 mmHg (83-108); ABG TCO2 25 mmol/L (19-24)
[2023-11-24 14:14] VITALS: BP 78/44; PULSE 98; RESP 18; TEMP 97.9
--- NOTE | 2023-11-25 13:10 | P.PN ---
Subjective Progress Note Date: 11/24/23 Principal diagnosis: Reason for follow-up is leukocytosis Patient is a 88-year-old female with a past medical history significant for hypertension hyperlipidemia atrial fibrillation history of breast cancer chronic back pain presenting to the hospital for evaluation ab dominal pain and constipation has been diagnosed with a large bowel obstruction and concern for possible liver mets did have persistent worsening white count prompting this consultation.Patient is status post expiratory laparotomy with sigmoid resection for large bowel obstruction and descending colostomy open cholecystectomy, peritoneal large liver biopsy procedure completed on 11/12/2023, Patient is status post revision of descending colostomy for ischemic colitis and drainage of peritoneal ascites procedure completed on 11/22/2023. On today's evaluation that is 11/24/2023, Patient is afebrile patient did have acute worsening of her clinical condition with hypertension for the patient has been transferred to ICU has received fluid bolus and pressor support, patient is currently on 5 L nasal cannula oxygen denies any chest pain or any worsening cough some abdominal pain and nausea but no vomiting. Patient white count has jumped to 45.2 creatinine 0.60 Objective - Vital Signs Vital signs: Vital Signs Temp 97.6 F 11/24/23 08:00 Pulse 120 H 11/24/23 11:00 Resp 17 11/24/23 11:00 BP 84/52 11/24/23 11:00 Pulse Ox 94 L 11/24/23 11:00 FiO2 Intake & Output 11/23/23 11/24/23 11/24/23 18:59 06:59 18:59 Intake Total 236 1951.841 857.336 Output Total 2300 570 140 Balance -2064 1381.841 717.336 Intake: IV 1619 820 Ampicillin-Sulbactam 3 gm 100 100 In Sodium Chloride 0.9% 100 ml @ 200 mls/hr IVPB Q6H SARAH Rx#:[id number] Magnesium Sulfate-D5w Pmx 100 1 gm In Dextrose/Water 1 100ml.bag @ 100 mls/hr IVPB ONCE ONE Rx#: [id number] Sodium Chloride 0.9% 1, 520 620 000 ml @ 100 mls/hr IV . Q10H SARAH Rx#:[id number] Sodium Chloride 0.9% 1, 999 000 ml @ 999 mls/hr IV . Q1H1M ONE Rx#:[id number] Intake, IV Titration 22.841 37.336 Amount Insulin Regular 100 unit 2.4 22.75 In Sodium Chloride 0.9% 100 ml @ Titrate IV .Q0M SARAH Rx#:[id number] Norepinephrine 4 mg In 20.441 14.586 Sodium Chloride 0.9% 250 ml @ 0.03 MCG/KG/MIN 9. 944 mls/hr IV .Q24H SARAH Rx#:[id number] Oral 236 Blood Product 310 Rc As-1 Unit 310 [id number] Output: Urine 2000 370 140 Stool 300 200 Other: Voiding Method Indwelling Catheter Indwelling Catheter Indwelling Catheter - Exam GENERAL DESCRIPTION: An elderly female lying in bed in no distress RESPIRATORY SYSTEM: Unlabored breathing , decreased breath sounds at bases HEART: S1 S2 regular rate and rhythm , ABDOMEN: Soft , mild distention and tenderness EXTREMITIES: No edema feet - Labs CBC & Chem 7: 11/24/23 11:41 11/24/23 06:04 Labs: Abnormal Lab Results - Last 24 Hours (Table) 11/23/23 11/23/23 11/24/23 Range/Units 18:04 21:17 00:14 WBC 30.7 H (3.8-10.6) k/uL RBC 2.00 L (3.80-5.40) m/uL Hgb 6.4 L* D (11.4-16.0) gm/dL Hct 21.4 L (34.0-46.0) % MCV 106.8 H D (80.0-100.0) fL MCHC 30.0 L (31.0-37.0) g/dL Plt Count 490 H (150-450) k/uL Neutrophils # (Manual) 22.70 H (1.3-7.7) k/uL Lymphocytes # (Manual) 6.75 H (1.0-4.8) k/uL Monocytes # (Manual) 1.23 H (0-1.0) k/uL Metamyelocytes # (Man) (0) k/uL PT (10.0-12.5) sec INR (<1.2) Sodium (137-145) mmol/L BUN (7-17) mg/dL Glucose (74-99) mg/dL POC Glucose (mg/dL) 293 H (70-110) mg/dL Plasma Lactic Acid Gagan 5.9 H* (0.7-2.0) mmol/L Calcium (8.4-10.2) mg/dL Ionized Calcium Mario (4.5-5.3) mg/dL AST (14-36) U/L ALT (4-34) U/L Total Protein (6.3-8.2) g/dL Albumin (3.5-5.0) g/dL Procalcitonin (0.02-0.09) ng/mL Crossmatch 11/24/23 11/24/23 11/24/23 Range/Units 00:14 00:35 01:14 WBC (3.8-10.6) k/uL RBC (3.80-5.40) m/uL Hgb (11.4-16.0) gm/dL Hct (34.0-46.0) % MCV (80.0-100.0) fL MCHC (31.0-37.0) g/dL Plt Count (150-450) k/uL Neutrophils # (Manual) (1.3-7.7) k/uL Lymphocytes # (Manual) (1.0-4.8) k/uL Monocytes # (Manual) (0-1.0) k/uL Metamyelocytes # (Man) (0) k/uL PT (10.0-12.5) sec INR (<1.2) Sodium (137-145) mmol/L BUN (7-17) mg/dL Glucose (74-99) mg/dL POC Glucose (mg/dL) 348 H (70-110) mg/dL Plasma Lactic Acid Gagan 9.3 H* (0.7-2.0) mmol/L Calcium (8.4-10.2) mg/dL Ionized Calcium Mario (4.5-5.3) mg/dL AST (14-36) U/L ALT (4-34) U/L Total Protein (6.3-8.2) g/dL Albumin (3.5-5.0) g/dL Procalcitonin (0.02-0.09) ng/mL Crossmatch See Detail 11/24/23 11/24/23 11/24/23 Range/Units 01:44 03:53 05:09 WBC (3.8-10.6) k/uL RBC (3.80-5.40) m/uL Hgb (11.4-16.0) gm/dL Hct (34.0-46.0) % MCV (80.0-100.0) fL MCHC (31.0-37.0) g/dL Plt Count (150-450) k/uL Neutrophils # (Manual) (1.3-7.7) k/uL Lymphocytes # (Manual) (1.0-4.8) k/uL Monocytes # (Manual) (0-1.0) k/uL Metamyelocytes # (Man) (0) k/uL PT (10.0-12.5) sec INR (<1.2) Sodium (137-145) mmol/L BUN (7-17) mg/dL Glucose (74-99) mg/dL POC Glucose (mg/dL) 367 H 257 H 301 H (70-110) mg/dL Plasma Lactic Acid Gagan (0.7-2.0) mmol/L Calcium (8.4-10.2) mg/dL Ionized Calcium Mario (4.5-5.3) mg/dL AST (14-36) U/L ALT (4-34) U/L Total Protein (6.3-8.2) g/dL Albumin (3.5-5.0) g/dL Procalcitonin (0.02-0.09) ng/mL Crossmatch 11/24/23 11/24/23 11/24/23 Range/Units 06:04 06:04 06:04 WBC 40.6 H (3.8-10.6) k/uL RBC 2.70 L (3.80-5.40) m/uL Hgb 8.6 L D (11.4-16.0) gm/dL Hct 27.5 L (34.0-46.0) % MCV 101.6 H D (80.0-100.0) fL MCHC (31.0-37.0) g/dL Plt Count 471 H (150-450) k/uL Neutrophils # (Manual) 30.80 H (1.3-7.7) k/uL Lymphocytes # (Manual) 8.93 H (1.0-4.8) k/uL Monocytes # (Manual) (0-1.0) k/uL Metamyelocytes # (Man) 0.41 H (0) k/uL PT 16.1 H (10.0-12.5) sec INR 1.6 H (<1.2) Sodium 132 L (137-145) mmol/L BUN 30 H (7-17) mg/dL Glucose 280 H (74-99) mg/dL POC Glucose (mg/dL) (70-110) mg/dL Plasma Lactic Acid Gagan (0.7-2.0) mmol/L Calcium 7.3 L (8.4-10.2) mg/dL Ionized Calcium Mario 4.4 L (4.5-5.3) mg/dL AST 147 H (14-36) U/L ALT 53 H (4-34) U/L Total Protein 3.7 L (6.3-8.2) g/dL Albumin 1.8 L (3.5-5.0) g/dL Procalcitonin (0.02-0.09) ng/mL Crossmatch 11/24/23 11/24/23 11/24/23 Range/Units 06:04 06:04 06:10 WBC (3.8-10.6) k/uL RBC (3.80-5.40) m/uL Hgb (11.4-16.0) gm/dL Hct (34.0-46.0) % MCV (80.0-100.0) fL MCHC (31.0-37.0) g/dL Plt Count (150-450) k/uL Neutrophils # (Manual) (1.3-7.7) k/uL Lymphocytes # (Manual) (1.0-4.8) k/uL Monocytes # (Manual) (0-1.0) k/uL Metamyelocytes # (Man) (0) k/uL PT (10.0-12.5) sec INR (<1.2) Sodium (137-145) mmol/L BUN (7-17) mg/dL Glucose (74-99) mg/dL POC Glucose (mg/dL) 302 H (70-110) mg/dL Plasma Lactic Acid Gagan 5.2 H* (0.7-2.0) mmol/L Calcium (8.4-10.2) mg/dL Ionized Calcium Mario (4.5-5.3) mg/dL AST (14-36) U/L ALT (4-34) U/L Total Protein (6.3-8.2) g/dL Albumin (3.5-5.0) g/dL Procalcitonin 0.89 H (0.02-0.09) ng/mL Crossmatch 11/24/23 11/24/23 11/24/23 Range/Units 06:58 09:24 10:55 WBC (3.8-10.6) k/uL RBC (3.80-5.40) m/uL Hgb (11.4-16.0) gm/dL Hct (34.0-46.0) % MCV (80.0-100.0) fL MCHC (31.0-37.0) g/dL Plt Count (150-450) k/uL Neutrophils # (Manual) (1.3-7.7) k/uL Lymphocytes # (Manual) (1.0-4.8) k/uL Monocytes # (Manual) (0-1.0) k/uL Metamyelocytes # (Man) (0) k/uL PT (10.0-12.5) sec INR (<1.2) Sodium (137-145) mmol/L BUN (7-17) mg/dL Glucose (74-99) mg/dL POC Glucose (mg/dL) 333 H 303 H 316 H (70-110) mg/dL Plasma Lactic Acid Gagan (0.7-2.0) mmol/L Calcium (8.4-10.2) mg/dL Ionized Calcium Mario (4.5-5.3) mg/dL AST (14-36) U/L ALT (4-34) U/L Total Protein (6.3-8.2) g/dL Albumin (3.5-5.0) g/dL Procalcitonin (0.02-0.09) ng/mL Crossmatch Assessment and Plan (1) Leukocytosis Status: Acute Code(s): D72.829 - ELEVATED WHITE BLOOD CELL COUNT, UNSPECIFIED SNOMED Code(s): 985709474 (2) Partial bowel obstruction Status: Acute Priority: High Code(s): K56.600 - PARTIAL INTESTINAL OBSTRUCTION, UNSPECIFIED TO CAUSE SNOMED Code(s): 58703779141635360 Plan: 1patient with leukocytosis which is likely multifactorial in this patient admitted to hospital with abdominal pain and constipation has been diagnosed with a large bowel obstruction with a question of possible mass versus colitis mass may be favored as the patient did have multiple lesion in the liver concerning for metastatic disease with worsening of the white count despite being on Rocephin and Flagyl we need to broaden her antibiotic coverage 2 patient is status post extensive abdominal surgery, abdominal cultures now growing Enterococcus faecalis penicillin sensitive and Bacteroides species 3patient did have repeat CT abdominal pelvis that has been suggestive of progression of her liver metastasis may be contributing to some of this elevated and also noticed to have ischemic colitis s/p revision of the descending colostomy procedure completed on 11/21/2021 4patient did have worsening of her clinical condition especially hypotension and jumping the white count but no fever source likely abdominal, blood culture has been obtained which is currently pending I will broaden her antibiotic coverage to Zosyn hide discontinue Unasyn await surgical evaluation and need for another CAT scan prognosis guarded Dictation was produced using [employer] dictation software. please excuse any grammatical, word or spelling errors. Time with Patient: Greater than 30
--- NOTE | 2023-11-25 15:10 | CDI ---
Documentation Clarification Form Date: 11/25/2023 02:41:27 PM From: Ernestine Alejandre Phone: Admit Date: 11/05/2023 08:18:00 PM Patient Name: Melody Bailey Visit Number: [id number] Discharge Date: 11/24/2023 05:54:00 PM ATTENTION: The Clinical Documentation Specialists (CDI) and [facility] Coding Staff appreciate your assistance in clarifying documentation. Please respond to the clarification below the line at the bottom and electronically sign. The CDI & [facility] Coding staff will review the response and follow-up if needed. Please note: Queries are made part of the Legal Health Record. If you have any questions, please contact the author of this message via ITS. Doctor/Provider: Brayden Dotson Your patient has the documented diagnosis of Chronic Systolic Heart Failure(reducedEF). Patient also developed volume overloadper Dr Peoples Progress Note 11/[address] Chappell's 11/23 Progress Note. Additional information regarding the acuity of CHF is requested. History/Risk Factors: 88yo F, hypervolemia,hyponatremia, hypotension, sigmoid PBO spcolostomyandcholecystectomy, HTN, hypokalemia,volume overload, lactic acidosis, ABLA Clinical Indicators: VS/Pulse OX: 98 Echo Results: LVEF 35-40%; mildly increased LV wall thickness; moderatelydilatedleft HU; MildMR; MildAS; Nopericardial effusion Chest X Ray: Bilateralinfiltrateand smalleffusioncorrelate forpneumonia otherwise considerCHF. Treatment: HoldingTPNdue tovolume overloadstatus initiated. Decrease IV fluids as patient is hypervolemic. Increase midodrine. Continue antibiotics as per ID. Repeat labs in a.m. Lasix 1 In your professional opinion, can you please clarify the acuity of CHF if known? [ ] Chronic Systolic Heart Failure (reduced EF) [ ] Acute on Chronic Systolic Heart Failure (reduced EF) [ ] Present on Admission [ ] Developed during stay, not present on admission [ ] Other, please specify [ ] Unable to determine (Template Last Revised: June 2020) MTDD
--- NOTE | 2023-11-25 17:48 | P.PN ---
Progress Note - Text Progress Note Date: 11/25/23 Contacted patient's daughter Talia and expressed my condolences. Any questions or concerns were addressed.
--- NOTE | 2023-11-28 14:59 | P.DS ---
Providers Date of admission: 11/05/23 20:18 Expected date of discharge: 11/24/23 Attending physician: Tere Coles MD Consults: 11/05/23 20:12 Consult Physician Urgent Consulting Provider: Chanel Cedeno Consult Reason/Comments: bowel obstruction Do you want consulting provider notified?: Already Contacted 11/05/23 23:12 Consult Physician Urgent Consulting Provider: Estrada Amaya Consult Reason/Comments: SUSPECT METASTATIC COLORECTAL MALIGNANCY Do you want consulting provider notified?: Yes 11/07/23 12:26 Consult Physician Urgent Consulting Provider: Hernan Ayers Consult Reason/Comments: Cardiac risk assessment Do you want consulting provider notified?: Yes 11/10/23 13:00 Consult Physician Urgent Consulting Provider: Zach Olvera Consult Reason/Comments: Leukocytosis Do you want consulting provider notified?: Yes 11/15/23 11:36 Consult Physician Routine Consulting Provider: Luke Go Consult Reason/Comments: IPR eval Do you want consulting provider notified?: Yes 11/18/23 18:00 Consult Physician Routine Consulting Provider: Alfa Washington Consult Reason/Comments: large bilateral pleural effusions Do you want consulting provider notified?: Yes, Notify in am 11/21/23 10:39 Consult Physician Routine Consulting Provider: Blu Preciado Consult Reason/Comments: hyponatremia Do you want consulting provider notified?: Yes 11/24/23 02:26 Consult Physician Stat Consulting Provider: Merline Ramírez Consult Reason/Comments: new icu admit Do you want consulting provider notified?: Yes 11/24/23 02:28 Consult Physician Urgent Consulting Provider: Alfa Washington Consult Reason/Comments: ICU management Do you want consulting provider notified?: Already Contacted Primary care physician: Stan Rhoades MD Hospital Course: 88-year-old female with past medical history of IBS, hypothyroidism, hypertension and A-fib (on Eliquis), presented to the ED with a complaint of abdominal pain on 11/04. In the ED she underwent extensive evaluation. BP 156/74, HR 64, T 98.5F, RR 16, 95% on RA. CBC, CMP performed significant for WBC 14.1, MCV 101.6, Na 133, glu 120, AST 42, total protein 6.2. Lactic acid 1.1. KUB showed dilated loops of bowel. CT AP showed partial SBO of the sigmoid colon, colitis versus mass, multiple lesions in the liver, sclerotic lesion in the left femur and abnormal soft tissue within the mesentery near the cecum. Patient was started on Rocephin and Flagyl for treatment of colitis and admitted for Surgery evaluation. She developed A-Fib with RVR on 11/06, started on Amiodarone drip and Cardiology was consulted. Metoprolol was titrated and Amiodarone drip converted to PO on 11/07. Eliquis was held and patient was started on a heparin drip in preparation for surgery. PICC line inserted for TPN 11/08. Patient with worsening leukocytosis, ID consulted on 11/09, switched to Zosyn. Also started on Cardizem drip on 11/09 for better HR control by Cardiology. Underwent exploratory laparotomy with sigmoid resection, colostomy, cholecystectomy, liver biopsy with finding of sigmoid colon mass highly suspicious for malignancy with Dr. Cedeno on 11/11. Pathology came back positive for cholecystitis, neuro- endocrine tumor of the colon and liver biopsy. Leukocytosis worsened, Eraxis added by ID on 11/17. Peritoneal culture + enterococcus faceium and bacteroides thetaiotaomicron, Zosyn switched to Unasyn on 11/19. Stoma site appeared dark and dusky, she underwent revision of colostomy and partial colectomy for ischemic colitis and necrotic colostomy on 11/21. 11/23 Patient was seen and examined. POD 2 revision of colostomy and partial colectomy for ischemic colitis and necrotic colostomy. A-team called for hypotension last night with lactic acidosis and decreased Hg of 6.4, transfused 1 unit PRBC and transferred to ICU for closer monitoring. CT AP obtained showing diffuse hepatic and osseous metastasis, mucosal wall thickening consistent with ischemic colitis, moderate pleural effusion and ascites/anasarca. Currently receiving TPN for nutrition. Currently on NDD3 high protein and calorie diet. Anticoagulation include Eliquis. CBC WBC 40.6, RBC 2.7, Hg 8.6, Hct 27.5, MCV 101.6, Plt 471. PT 16.1, INR 1.6. CMP Na 132, BUN 30, glu 280, Ca 7.3, AST 147, ALT 53, alb 1.8. Lactic acid 5.2. POC glucose ranging from 255-367 requiring initiation of insulin drip currently running at 9 units/hr. Antibiotics include Unasyn 3 g IV TID (D4), Flagyl 500 mg PO TID (D7) and Eraxis 100 mg IV QD (D7). Unfortunately, the patient on 11/23. See progress note for physical exam. 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% Macrocytosis Subclinical hypothyroidism Urinary incontinence Hypertension Dyslipidemia Plan - Discharge Summary New Discharge Prescriptions: No Action Cholecalciferol [Vitamin D3 (25 Mcg = 1000 Iu)] 25 mcg PO HS Multivit-Min/FA/Lycopen/Lutein [Centrum Silver Tablet] 1 tab PO HS Levothyroxine Sodium [Synthroid] 100 mcg PO DAILY Atorvastatin [Lipitor] 20 mg PO DAILY Metoprolol Tartrate 25 mg PO BID Acetaminophen Tab [Tylenol Tab] 1,000 mg PO BID Super B Complex 1 tab PO Q7D HYDROcodone/APAP 5-325MG [[place] 5-325] 1 tab PO BID PRN PRN Reason: Pain Cyanocobalamin (Vitamin B-12) [Vitamin B-12] 1,000 mcg PO Q7D Omeprazole [PriLOSEC] 20 mg PO DAILY Calcium Carbonate [Calcium] 600 mg PO HS Losartan/Hydrochlorothiazide [Losartan-Hctz 50-12.5 mg Tab] 1 tab PO DAILY Apixaban [Eliquis] 5 mg PO BID Amiodarone HCl [Pacerone] 200 mg PO DAILY Mirabegron [Myrbetriq] 50 mg PO DAILY traMADol HCL 50 mg PO TID PRN PRN Reason: Pain Magnesium Hydroxide [Milk of Magnesia] 2,400 mg PO DAILY PRN PRN Reason: Constipation Discharge Medication List Amiodarone HCl [Pacerone] 200 mg PO DAILY 05/19/22 [History] Apixaban [Eliquis] 5 mg PO BID 05/19/22 [History] Atorvastatin [Lipitor] 20 mg PO DAILY 05/19/22 [History] Calcium Carbonate [Calcium] 600 mg PO HS 05/19/22 [History] Cholecalciferol [Vitamin D3 (25 Mcg = 1000 Iu)] 25 mcg PO HS 05/19/22 [History] Cyanocobalamin (Vitamin B-12) [Vitamin B-12] 1,000 mcg PO Q7D 05/19/22 [History] Levothyroxine Sodium [Synthroid] 100 mcg PO DAILY 05/19/22 [History] Losartan/Hydrochlorothiazide [Losartan-Hctz 50-12.5 mg Tab] 1 tab PO DAILY 05/19/22 [History] Multivit-Min/FA/Lycopen/Lutein [Centrum Silver Tablet] 1 tab PO HS 05/19/22 [History] Omeprazole [PriLOSEC] 20 mg PO DAILY 05/19/22 [History] Metoprolol Tartrate 25 mg PO BID 09/14/22 [History] Acetaminophen Tab [Tylenol Tab] 1,000 mg PO BID 11/05/23 [History] HYDROcodone/APAP 5-325MG [[place] 5-325] 1 tab PO BID PRN 11/05/23 [History] Magnesium Hydroxide [Milk of Magnesia] 2,400 mg PO DAILY PRN 11/05/23 [History] Mirabegron [Myrbetriq] 50 mg PO DAILY 11/05/23 [History] Super B Complex 1 tab PO Q7D 11/05/23 [History] traMADol HCL 50 mg PO TID PRN 11/05/23 [History] Follow up Appointment(s)/Referral(s): Blake Todd DO [REFERRING] - 1-2 days [facility] Visiting Nurse, [NON-STAFF] - As Needed ([facility] will call you to schedule your in home nursing and physical therapy visits. ) Activity/Diet/Wound Care/Special Instructions: Ostomy: Change appliance every 3 to 5 days and if leaking occurs Last Changed: 11/24/23 Kacey two piece cut to fit convex appliance #[id number] and pouch #[id number] Discharge Disposition: - Preliminary Cause of Preliminary Cause of : Ischemic colitis
--- NOTE | 2023-12-01 15:32 | CDI ---
Documentation Clarification Form Date: 12/01/2023 03:26:48 PM From: Ernestine Alejandre Phone: Admit Date: 11/05/2023 08:18:00 PM Patient Name: Melody Bailey Visit Number: [id number] Discharge Date: 11/24/2023 05:54:00 PM ATTENTION: The Clinical Documentation Specialists (CDI) and [facility] Coding Staff appreciate your assistance in clarifying documentation. Please respond to the clarification below the line at the bottom and electronically sign. The CDI & [facility] Coding staff will review the response and follow-up if needed. Please note: Queries are made part of the Legal Health Record. If you have any questions, please contact the author of this message via ITS. Doctor/Provider: Brayden Dotson Thank you for acknowledging the previous query; however, it lacked clarification. Your patient has the documented diagnosis of: Chronic Systolic Heart Failure(reducedEF). Patient also developedvolume overloadper Dr Peoples Progress Note 11/[address] Chappell's 11/23 Progress Note. Additional clarification regarding the acuity ofCHFis requested. History/Risk Factors: 88yo F,hypervolemia,hyponatremia,hypotension, HTN,hypokalemia,volume overload,lactic acidosis,ABLA, sigmoid PBO spcolostomyandcholecystectomy Clinical Indicators: VS/Pulse OX: 98 Echo Results: LVEF 35-40%; mildly increased LV wall thickness; moderatelydilatedleft HU; MildMR/;Nopericardial effusion Chest X Ray: Bilateralinfiltrateand smalleffusioncorrelate forpneumonia otherwise considerCHF. Treatment: HoldingTPNdue tovolume overloadstatus initiated. Decrease IV fluids as patient is hypervolemic. Increase midodrine. Continue antibiotics as per ID. Repeat labs in a.m. Lasix 1 In your professional opinion, can you please clarify the acuity ofCHFif known? [ ]Chronic Systolic Heart Failure(reducedEF) [ ]Acute on Chronic Systolic Heart Failure(reducedEF) [ ] Present on Admission [ ] Developed during stay, not present on admission [ ] Other, please specify [ ] Unable to determine (Template LastRevised: June 2020) ____please see my note - for more specificity __ MTDD
== END 2023-11-24 17:54 | disposition expired | DRG 826 ==
LOC: EC 16:18 → 5NMEDONC 20:18 → 3SCARD 11-07 23:57 → 2SICU 11-24 01:20
PROVIDERS: ADMIT Internal Medicine; ATTEND Internal Medicine
PROC: 3E033RZ Introduction of Antiarrhythmic into Peripheral Vein, Percutaneous Approach (ICD-10-PCS; 2023-11-07)
PROC: 02HV33Z Insertion of Infusion Device into Superior Vena Cava, Percutaneous Approach (ICD-10-PCS; 2023-11-09)
PROC: 3E0436Z Introduction of Nutritional Substance into Central Vein, Percutaneous Approach (ICD-10-PCS; 2023-11-09)
PROC: 0DTN0ZZ Resection of Sigmoid Colon, Open Approach (ICD-10-PCS; 2023-11-12)
PROC: 0FT40ZZ Resection of Gallbladder, Open Approach (ICD-10-PCS; 2023-11-12)
PROC: 0FB20ZX Excision of Left Lobe Liver, Open Approach, Diagnostic (ICD-10-PCS; 2023-11-12)
PROC: 0D9L0ZZ Drainage of Transverse Colon, Open Approach (ICD-10-PCS; 2023-11-12)
PROC: 0DCL0ZZ Extirpation of Matter from Transverse Colon, Open Approach (ICD-10-PCS; 2023-11-12)
PROC: 3E0R3BZ Introduction of Anesthetic Agent into Spinal Canal, Percutaneous Approach (ICD-10-PCS; 2023-11-12)
PROC: 0D1M0Z4 Bypass Descending Colon to Cutaneous, Open Approach (ICD-10-PCS; principal; 2023-11-12 08:45)
PROC: 0W9G0ZZ Drainage of Peritoneal Cavity, Open Approach (ICD-10-PCS; 2023-11-12 08:45)
PROC: 0DB Gastrointestinal System, Excision (ICD-10-PCS; 2023-11-22)
PROC: 3E0T3BZ Introduction of Anesthetic Agent into Peripheral Nerves and Plexi, Percutaneous Approach (ICD-10-PCS; 2023-11-22)
PROC: 3E0T33Z Introduction of Anti-inflammatory into Peripheral Nerves and Plexi, Percutaneous Approach (ICD-10-PCS; 2023-11-22)
PROC: 30233N1 Transfusion of Nonautologous Red Blood Cells into Peripheral Vein, Percutaneous Approach (ICD-10-PCS; 2023-11-24)
PROC: 3E033XZ Introduction of Vasopressor into Peripheral Vein, Percutaneous Approach (ICD-10-PCS; 2023-11-24)
DX: C7A.8 Other malignant neuroendocrine tumors (principal); A41.81 Sepsis due to Enterococcus; K55.049 Acute infarction of large intestine, extent unspecified; J96.01 Acute respiratory failure with hypoxia; K72.00 Acute and subacute hepatic failure without coma; K55.059 Acute (reversible) ischemia of intestine, part and extent unspecified; R65.21 Severe sepsis with septic shock; E43 Unspecified severe protein-calorie malnutrition; K65.9 Peritonitis, unspecified; K56.690 Other partial intestinal obstruction; I96 Gangrene, not elsewhere classified; K80.12 Calculus of gallbladder with acute and chronic cholecystitis without obstruction; K82.1 Hydrops of gallbladder; R18.8 Other ascites; E87.3 Alkalosis; J91.8 Pleural effusion in other conditions classified elsewhere; I42.9 Cardiomyopathy, unspecified; I47.19 Other supraventricular tachycardia; D62 Acute posthemorrhagic anemia; I50.22 Chronic systolic (congestive) heart failure; Z66 Do not resuscitate; C79.51 Secondary malignant neoplasm of bone; C78.7 Secondary malignant neoplasm of liver and intrahepatic bile duct; I11.0 Hypertensive heart disease with heart failure; E87.1 Hypo-osmolality and hyponatremia; K57.32 Diverticulitis of large intestine without perforation or abscess without bleeding; I48.0 Paroxysmal atrial fibrillation; Z79.01 Long term (current) use of anticoagulants; Z53.09 Procedure and treatment not carried out because of other contraindication; E88.09 Other disorders of plasma-protein metabolism, not elsewhere classified; E86.1 Hypovolemia; D50.9 Iron deficiency anemia, unspecified; I08.0 Rheumatic disorders of both mitral and aortic valves; Z79.1 Long term (current) use of non-steroidal anti-inflammatories (NSAID); Z68.36 Body mass index [BMI] 36.0-36.9, adult; E03.8 Other specified hypothyroidism; G89.18 Other acute postprocedural pain; K21.9 Gastro-esophageal reflux disease without esophagitis; E78.5 Hyperlipidemia, unspecified; G89.29 Other chronic pain; M54.50 Low back pain, unspecified; D75.89 Other specified diseases of blood and blood-forming organs; N39.498 Other specified urinary incontinence; R73.9 Hyperglycemia, unspecified; D25.9 Leiomyoma of uterus, unspecified; E87.6 Hypokalemia; E83.42 Hypomagnesemia; B95.2 Enterococcus as the cause of diseases classified elsewhere; B96.6 Bacteroides fragilis [B. fragilis] as the cause of diseases classified elsewhere; E16.2 Hypoglycemia, unspecified; E07.81 Sick-euthyroid syndrome; M54.30 Sciatica, unspecified side; Z96.653 Presence of artificial knee joint, bilateral; Z79.890 Hormone replacement therapy; Z86.19 Personal history of other infectious and parasitic diseases; Z92.3 Personal history of irradiation; Z85.3 Personal history of malignant neoplasm of breast; Z80.3 Family history of malignant neoplasm of breast; Z80.0 Family history of malignant neoplasm of digestive organs; Z79.899 Other long term (current) drug therapy
CPT/HCPCS: 36415; 36573; 36600; 45380; 64999; 71045; 71260; 74018; 74177; 74183; 76604; 80048; 80053; 82105; 82150; 82330; 82378; 82607; 82746; 82747; 82803; 82805; 83036; 83605; 83690; 83735; 84100; 84145; 84260; 84439; 84443; 84478; 85025; 85027; 85610; 85730; 86140; 86300; 86301; 86316; 86850; 86900; 86901; 86920; 87040; 87070; 87075; 87077; 87186; 87205; 88108; 88304; 88305; 88307; 88341; 88342; 93005; 93306; 94760; 96365; 99285